=== PATIENT | female | born 1945 | race Caucasian/White ===

== ENCOUNTER 2016-05-22 10:53 | Emergency (ER) | payer OTHER ==
[~2016-05-22] VITALS: Ht 162.6 cm; Wt 72.0 kg
[2016-05-22 10:53] VITALS: TEMP 36.5; Ht 162.6 cm; Wt 72.0 kg
[~2016-05-22 10:53] MED LIST: ASPEC325 PO; ATEN25TA PO; CALC-51 PO; CHOL1CAP67 PO; CHROPOW21 PO; CINN1CAP2 PO; CRAN500C2 PO; FLV400 PO; HYDR-5688 PO; LEVO112T2 PO; LORA-741 PO; LORA10TA6 PO; LOSA50TA6 PO; MAGN1CAP2 PO; METAMUCIL PO; METF500T PO; MULTTAB PO; SENNTAB23 PO
[2016-05-22] MEDS ORDERED: SODIUM CHLORIDE 0.9% 1000ML 200 ML IV STA (11:15)
[2016-05-22 11:29] LABS: BASO % 0.6 %; BASO ABS # 0.06 K/uL (0-0.2); COMPLETE YES; EOS % 3.3 %; HEMATOCRIT 40.6 % (37-47); IG% 0.3 %; LYMPH % 39.3 %; MEAN CELL VOLUME 89.8 fL (80-100); MEAN CORPUSCULAR HGB CONC 34.5 g/dl (32-36); MEAN PLATELET VOLUME 10.8 fL (7.4-10.4); MONO % 5.6 %; NEUT % 50.9 %; PLATELET COUNT 258 K/uL (130-400); RED BLOOD COUNT 4.52 M/uL (4.2-5.4); WHITE BLOOD COUNT 10.44 K/uL (4.8-10.8)
[2016-05-22 11:45] LABS: INR 1.1 (0.9-1.1); PARTIAL THROMBOPLASTIN RATIO 0.9; PROTHROMBIN TIME (PATIENT) 11.5 SECONDS (9.0-12.0)
[2016-05-22 11:48] LABS: ALT/SGPT 33 U/L (12-78); AST/SGOT 43 U/L (15-37); BLOOD UREA NITROGEN 13 mg/dl (7-18); BUN/CREATININE RATIO 11.6 (10-20); CALCIUM 8.7 mg/dl (8.5-10.1); CARBON DIOXIDE 23 mmol/L (21-32); CHLORIDE 105 mmol/L (98-107); GLUCOSE 136 mg/dl (70-99); MAGNESIUM 1.9 mg/dl (1.8-2.4); POTASSIUM 3.9 mmol/L (3.5-5.1); SODIUM 140 mmol/L (136-145)
--- NOTE | 2016-05-22 11:50 | DIAGNOSTIC IMAGING REPORT ---
CT SCAN OF THE BRAIN WITHOUT IV CONTRAST CLINICAL HISTORY: Change in mental status. COMPARISON STUDY: No priors. TECHNIQUE: Unenhanced axial CT scan of the brain is performed from the vertex to the skull base. CT DOSE: 737.65 mGy.cm FINDINGS: Brain parenchyma: There are age-related involutional changes noting minimal subcortical and periventricular microangiopathic change. There is no hemorrhage, mass effect, or evidence of acute territorial ischemia by CT criteria. Maria-white matter is preserved. No extra-axial fluid collection is seen. Ventricles, sulci, cisterns: Prominent secondary to involutional change. Intracranial vasculature: There is mild atherosclerotic calcification of the cavernous carotid arteries. Calvarium: Unremarkable. Sinuses and mastoids: The visualized paranasal sinuses are clear. The mastoid air cells are well pneumatized. Orbits: The bony orbits are grossly intact. IMPRESSION: There is no hemorrhage, mass effect, or evidence of acute territorial ischemia by CT criteria. Electronically signed by: Remigio Carrasquillo M.D. 05/22/2016 11:49 AM
[2016-05-22 11:55] LABS: ALKALINE PHOSPHATASE 92 U/L (45-117); CKMB/CK RATIO 1.2 (0-3.0); THYROID STIMULATING HORMONE 0.206 uIu/ml (0.300-4.500)
[2016-05-22 12:03] VITALS: O2SAT 98
--- NOTE | 2016-05-22 12:05 | DIAGNOSTIC IMAGING REPORT ---
CT SCAN OF THE FACIAL BONES WITHOUT IV CONTRAST CLINICAL HISTORY: Right jaw pain. COMPARISON STUDY: CT of the brain performed concurrently on 05/22/2016. TECHNIQUE: High-resolution CT scan of the facial bones is performed. Images are reviewed in the axial, sagittal, and coronal planes. IV contrast was not administered for this examination. CT DOSE: Reported separately under the concurrently performed CT scan of the brain. FINDINGS: The skeletal structures are osteopenic. There is no evidence of facial bone fracture. The bony orbits are intact and the orbital contents are within normal limits. The zygomatic arches, nasal bones, and pterygoid plates are preserved. The maxilla and mandible are intact. Degenerative change is noted involving the temporomandibular joints. There are no layering blood products within the paranasal sinuses. There is trace mucosal thickening within the right maxillary antrum, the frontal sinuses, and the ethmoid sinuses. The mastoid air cells are clear. The visualized calvarium and upper cervical spine are maintained. Partially imaged brain parenchyma is within normal limits. No dental caries or periapical lucencies are identified. IMPRESSION: There is no evidence of facial bone fracture. Electronically signed by: Remigio Carrasquillo M.D. 05/22/2016 12:03 PM
[2016-05-22] MEDS ORDERED: ASPCH81X PO (12:13)
--- NOTE | 2016-05-22 12:13 | EMERGENCY ROOM VISIT NOTE ---
History Report prepared by Niko: Beata Bond Under the Supervision of: Dr. Jose Us D.O. First contact with patient: 11:09 Chief Complaint: STROKE SYMPTOMS Stated Complaint: POSSIBLE STROKE History of Present Illness The patient is a 71 year old female who presents to the Emergency Room with complaints of improving stroke-like symptoms that started [employer]. She rates her discomfort as a 3/10 in severity. The patient was at a service when they just finished singing a song and she became very dizzy. She also experienced worsening ear and jaw pain which radiated into her left shoulder, along with diaphoresis. She states that she felt like she was going to experience syncope. Her adds that she was weak and "shaky" when she was getting into the car. She states that the pain in her ears was bad during that time. Currently, she is a little dizzy but does not feel weak. The patient describes the dizziness as feeling "woozy." She states that she has had the pain in the right side of her jaw for about two months and it radiates into her ear when she opens her mouth. The patient saw her PCP for the jaw pain and they took an x -ray which was unremarkable. The patient's states that the patient's blood pressure medications were increased recently because her blood pressures have been high. The patient has a history of diabetes and hypertension. Source of History: patient, spouse/significant other () Onset: [employer] Symptom Intensity: 3/10 Quality: other (stroke-like symptoms) Timing: other (improving) Associated Symptoms: + weakness Note: dizziness, ear pain, jaw pain Review of Systems See HPI for pertinent positives & negatives. A total of 10 systems reviewed and were otherwise negative. Past Medical & Surgical Medical Problems: (1) Hypertension (2) Hypothyroidism Family History No pertinent family history Social History Smoking Status: Never Smoker Current/Historical Medications Scheduled Aspirin (Aspirin Chewable), 81 MG PO DAILY Atenolol (Tenormin), 25 MG PO DAILY Calcium Carbonate-Vitamin D (Calcium), 300 MG PO DAILY Cholecalciferol (Vitamin D-3), 1 CAP PO DAILY Cinnamon (Cinnamon), 1 CAP PO DAILY Cranberry (Vaccinium Macrocarp (Cranberry), 1 CAP PO DAILY Folic Acid (Folic Acid), 1 TAB PO DAILY Levothyroxine Sodium (Synthroid), 112 MCG PO DAILY Losartan Potassium (Cozaar), 50 MG PO BID Magnesium Oxide (Mg Supplement (Magnesium), 1 CAP PO DAILY Metformin Hcl (Glucophage), 500 MG PO DAILY Multivitamins/Minerals (Mvi With Minerals), 1 TAB PO DAILY [Chromium Picolinate], 250 MG PO DAILY [Metamucil], 1 TBS PO DAILY Scheduled PRN Loratadine (Claritin), 10 MG PO DAILY PRN for ALLERGIC REACTION Lorazepam (Ativan), 0.25 MG PO DAILY PRN for Anxiety Allergies Coded Allergies: BEE STING (Verified Allergy, Severe, SWELLS UP, 11/26/13) Cefazolin (Unverified Allergy, Intermediate, SHORTNESS OF BREATH, 12/10/13) lip swellling Morphine (Verified Adverse Reaction, Intermediate, ABNORMAL DREAMS/PASSED OUT, 11/26/13) Nitroglycerin (Verified Adverse Reaction, Intermediate, GI SYMPTOMS, ) Adhesives (Verified Adverse Reaction, Mild, HIVES, 12/09/13) ITCHY AND RED SKIN Lisinopril (Verified Adverse Reaction, Mild, COUGH, 11/26/13) Physical Exam Vital Signs Date Time Temp Pulse Resp B/P Pulse Ox O2 Delivery O2 Flow Rate FiO2 05/22/16 13:44 60 18 155/83 98 05/22/16 12:03 98 Room Air 05/22/16 11:06 59 05/22/16 10:53 36.5 54 18 168/87 98 Room Air Physical Exam VITAL SIGNS: were reviewed as above. GENERAL:Non-toxic in appearance. SKIN: Warm dry and pink. HEAD: Normocephalic and atraumatic. OROPHARYNX: Is clear and moist NECK: Supple without lymphadenopathy or meningismus. LUNGS: clear. HEART: Regular rate and rhythm. ABDOMEN: Soft and nontender. EXTREMITIES: Warm and well perfused. NEUROLOGICALLY: Awake alert and oriented without focal deficit. Cranial nerves 2 -12 are intact. There is no pronator drift. Cerebellar testing is within normal limits. There is no nystagmus. There is no facial droop. Speech is clear. Vision is grossly normal. MUSCULOSKELETAL: Good muscle tone. No evidence of trauma. Medical Decision & Procedures ER Provider Diagnostic Interpretation: X ray results and stated below per my interpretation and radiologist interpretation. Other radiology results and stated below per my review and radiologist interpretation: SINGLE VIEW CHEST CLINICAL HISTORY: Change in mental status. FINDINGS: An AP, portable, upright chest radiograph is compared to study dated 12/10/2013. The examination is degraded by portable technique and patient rotation. The heart is mildly enlarged and there is atherosclerotic calcification of the thoracic aorta. The pulmonary vasculature is noncongested. The lungs and pleural spaces are clear. No pneumothorax is seen. The skeletal structures are osteopenic. The bony thorax is grossly intact. Cholecystectomy clips are identified in the right upper quadrant. IMPRESSION: Cardiac enlargement with no active disease in the chest. Electronically signed by: Remigio Carrasquillo M.D. 05/22/2016 12:[address] SCAN OF THE BRAIN WITHOUT IV CONTRAST CLINICAL HISTORY: Change in mental status. COMPARISON STUDY: No priors. TECHNIQUE: Unenhanced axial CT scan of the brain is performed from the vertex to the skull base. CT DOSE: 737.65 mGy.cm FINDINGS: Brain parenchyma: There are age-related involutional changes noting minimal subcortical and periventricular microangiopathic change. There is no hemorrhage, mass effect, or evidence of acute territorial ischemia by CT criteria. Maria-white matter is preserved. No extra-axial fluid collection is seen. Ventricles, sulci, cisterns: Prominent secondary to involutional change. Intracranial vasculature: There is mild atherosclerotic calcification of the cavernous carotid arteries. Calvarium: Unremarkable. Sinuses and mastoids: The visualized paranasal sinuses are clear. The mastoid air cells are well pneumatized. Orbits: The bony orbits are grossly intact. IMPRESSION: There is no hemorrhage, mass effect, or evidence of acute territorial ischemia by CT criteria. Electronically signed by: Remigio Carrasquillo M.D. 05/22/2016 11:[address] SCAN OF THE FACIAL BONES WITHOUT IV CONTRAST CLINICAL HISTORY: Right jaw pain. COMPARISON STUDY: CT of the brain performed concurrently on 05/22/2016. TECHNIQUE: High-resolution CT scan of the facial bones is performed. Images are reviewed in the axial, sagittal, and coronal planes. IV contrast was not administered for this examination. CT DOSE: Reported separately under the concurrently performed CT scan of the brain. FINDINGS: The skeletal structures are osteopenic. There is no evidence of facial bone fracture. The bony orbits are intact and the orbital contents are within normal limits. The zygomatic arches, nasal bones, and pterygoid plates are preserved. The maxilla and mandible are intact. Degenerative change is noted involving the temporomandibular joints. There are no layering blood products within the paranasal sinuses. There is trace mucosal thickening within the right maxillary antrum, the frontal sinuses, and the ethmoid sinuses. The mastoid air cells are clear. The visualized calvarium and upper cervical spine are maintained. Partially imaged brain parenchyma is within normal limits. No dental caries or periapical lucencies are identified. IMPRESSION: There is no evidence of facial bone fracture. Electronically signed by: Remigio Carrasquillo M.D. 05/22/2016 12:03 PM Laboratory Results 05/22/16 11:10 Red Blood Count 4.52, Mean Corpuscular Volume 89.8, Mean Corpuscular Hemoglobin 31.0, Mean Corpuscular Hemoglobin Concent 34.5, Mean Platelet Volume 10.8, Neutrophils (%) (Auto) 50.9, Lymphocytes (%) (Auto) 39.3, Monocytes (%) (Auto) 5.6, Eosinophils (%) (Auto) 3.3, Basophils (%) (Auto) 0.6, Neutrophils # (Auto) 5.33, Lymphocytes # (Auto) 4.10, Monocytes # (Auto) 0.58, Eosinophils # (Auto) 0.34, Basophils # (Auto) 0.06 05/22/16 11:10 Test 05/22/16 11:10 White Blood Count 10.44 K/uL (4.8-10.8) Red Blood Count 4.52 M/uL (4.2-5.4) Hemoglobin 14.0 g/dL (12.0-16.0) Hematocrit 40.6 % (37-47) Mean Corpuscular Volume 89.8 fL (80-100) Mean Corpuscular Hemoglobin 31.0 pg (25-34) Mean Corpuscular Hemoglobin Concent 34.5 g/dl (32-36) Platelet Count 258 K/uL (130-400) Mean Platelet Volume 10.8 fL (7.4-10.4) Neutrophils (%) (Auto) 50.9 % Lymphocytes (%) (Auto) 39.3 % Monocytes (%) (Auto) 5.6 % Eosinophils (%) (Auto) 3.3 % Basophils (%) (Auto) 0.6 % Neutrophils # (Auto) 5.33 K/uL (1.4-6.5) Lymphocytes # (Auto) 4.10 K/uL (1.2-3.4) Monocytes # (Auto) 0.58 K/uL (0.11-0.59) Eosinophils # (Auto) 0.34 K/uL (0-0.5) Basophils # (Auto) 0.06 K/uL (0-0.2) RDW Standard Deviation 44.4 fL (36.4-46.3) RDW Coefficient of Variation 13.4 % (11.5-14.5) Immature Granulocyte % (Auto) 0.3 % Immature Granulocyte # (Auto) 0.03 K/uL (0.00-0.02) Prothrombin Time 11.5 SECONDS (9.0-12.0) Prothromb Time International Ratio 1.1 (0.9-1.1) Activated Partial Thromboplast Time 24.5 SECONDS (21.0-31.0) Partial Thromboplastin Ratio 0.9 Anion Gap 12.0 mmol/L (3-11) Est Creatinine Clear Calc Drug Dose 44.3 ml/min Estimated GFR () 57.7 Estimated GFR (Non- 49.8 BUN/Creatinine Ratio 11.6 (10-20) Calcium Level 8.7 mg/dl (8.5-10.1) Magnesium Level 1.9 mg/dl (1.8-2.4) Total Bilirubin 0.7 mg/dl (0.2-1) Direct Bilirubin 0.1 mg/dl (0-0.2) Aspartate Amino Transf (AST/SGOT) 43 U/L (15-37) Alanine Aminotransferase (ALT/SGPT) 33 U/L (12-78) Alkaline Phosphatase 92 U/L (45-117) Total Creatine Kinase 58 U/L (26-192) Creatine Kinase MB 0.7 ng/ml (0.5-3.6) Creatine Kinase MB Ratio 1.2 (0-3.0) Troponin I < 0.015 ng/ml (0-0.045) Total Protein 7.7 gm/dl (6.4-8.2) Albumin 3.8 gm/dl (3.4-5.0) Lipase 203 U/L (73-393) Thyroid Stimulating Hormone (TSH) 0.206 uIu/ml (0.300-4.500) Laboratory results as stated above per my review. Medications Administered Medications (Trade) Dose Ordered Sig/Shira Route Start Time Stop Time Status Last Admin Dose Admin Sodium Chloride (Nss 1000ml) 200 ml @ 999 mls/hr Q13M STAT IV 05/22/16 11:15 05/22/16 11:27 DC 05/22/16 12:03 999 MLS/HR ECG Indication: weakness Rate (beats per minute): 52 Rhythm: sinus bradycardia Findings: no acute ischemic change, no ectopy, other (low voltage QRS) Comparison ECG Date: 12/10/2013 Change: Low voltage QRS is new ED Course 1112: Previous medical records were reviewed. The patient was evaluated in room C3. A complete history and physical examination was performed. 1115: Ordered Sodium Chloride 200 ml @ 999 mls/hr IV 1212: On reevaluation, the patient is doing well. I discussed the results and findings with the patient. She verbalized agreement of the treatment plan. She was discharged home. Medical Decision Differential includes acute coronary syndrome, myocardial infarction, CVA, TIA, anemia, infection, pneumonia, UTI, pyelonephritis, poor nutrition, dehydration, electrolyte disturbance,hypoglycemia. This is a 71-year-old female who presents to the ED with a chief complaint of having a near syncopal episode. The patient states that she was at worship and developed a pain in her right ear and jaw. She states that she has had this pain before. She talk to her PCP about it and had x-rays which did not show a cause. The pain radiated into her neck and into the other side of her face. She states that she felt lightheaded and became diaphoretic and weak. She felt like he might pass out but she did not. Currently the patient just feels a little woozy. She denies any other significant symptoms. Her neurologic exam was normal. Her physical exam was normal. Twelve-lead EKG shows a sinus bradycardia rate of 52. Low voltage. CT scan of her head and facial structures did not show any acute process. Chest x-ray was negative for acute disease. CBC was unremarkable. Complete metabolic panel was unremarkable. Troponin is negative. The exact cause of the patient's symptoms/pain is unclear. She may have TMJ. I feel she had a vasovagal type near syncope today while at worship. She is felt to be stable for discharge and outpatient follow- up. Impression Primary Impression: Near syncope Additional Impression: Lightheaded Scribe Attestation The scribe's documentation has been prepared under my direction and personally reviewed by me in its entirety. I confirm that the note above accurately reflects all work, treatment, procedures, and medical decision making performed by me. Departure Information Dispostion Home / Self-Care Referrals Candis Bro DO (PCP) Forms HOME CARE DOCUMENTATION FORM, IMPORTANT VISIT INFORMATION Patient Instructions A Signature Page, ED Near Syncope Unkn, My [facility] Additional Instructions Follow-up with your doctor for further care and evaluation in 1-2 days. Return to the emergency department for worsening or new symptoms or any concerns. You have been examined and treated today on an emergency basis only. This is not a substitute for, or an effort to provide, complete comprehensive medical care. It is impossible to recognize and treat all injuries or illnesses in a single emergency department visit. It is therefore important that you follow up closely with your doctor. Call as soon as possible for an appointment.
--- NOTE | 2016-05-22 12:58 | DIAGNOSTIC IMAGING REPORT ---
SINGLE VIEW CHEST CLINICAL HISTORY: Change in mental status. FINDINGS: An AP, portable, upright chest radiograph is compared to study dated 12/10/2013. The examination is degraded by portable technique and patient rotation. The heart is mildly enlarged and there is atherosclerotic calcification of the thoracic aorta. The pulmonary vasculature is noncongested. The lungs and pleural spaces are clear. No pneumothorax is seen. The skeletal structures are osteopenic. The bony thorax is grossly intact. Cholecystectomy clips are identified in the right upper quadrant. IMPRESSION: Cardiac enlargement with no active disease in the chest. Electronically signed by: Remigio Carrasquillo M.D. 05/22/2016 12:56 PM
[2016-05-22 13:44] VITALS: BP 155/83; PULSE 60; O2SAT 98
[2017-01-15] MEDS ORDERED: MECL-91 PO (15:04)
== END 2016-05-22 13:45 | disposition home or self-care (01) ==
LOC: C.EDB 10:53 → C.EDC 13:45
DX: R55 Syncope and collapse (principal); R42 Dizziness and giddiness; I10 Essential (primary) hypertension; E03.9 Hypothyroidism, unspecified; E11.9 Type 2 diabetes mellitus without complications; Z79.82 Long term (current) use of aspirin; Z79.899 Other long term (current) drug therapy

== ENCOUNTER 2017-01-15 05:55 | Observation (INO) | payer OTHER ==
[~2017-01-15] VITALS: Ht 160 cm; Wt 6.7 kg
[~2017-01-15 05:55] MED LIST changes: +ASPCH81X PO; -ASPEC325 PO; -HYDR-5688 PO; +LORA10TA5 PO; -LORA10TA6 PO; -SENNTAB23 PO
[2017-01-15 06:22] LABS: BASO % 0.2 %; BASO ABS # 0.02 K/uL (0-0.2); COMPLETE YES; HEMATOCRIT 41.1 % (37-47); IG% 0.3 %; LYMPH % 37.4 %; MEAN CELL VOLUME 91.1 fL (80-100); MEAN CORPUSCULAR HEMOGLOBIN 29.7 pg (25-34); MEAN CORPUSCULAR HGB CONC 32.6 g/dl (32-36); MEAN PLATELET VOLUME 10.5 fL (7.4-10.4); MONO % 5.9 %; NEUT % 54.2 %; PLATELET COUNT 254 K/uL (130-400); RED BLOOD COUNT 4.51 M/uL (4.2-5.4); WHITE BLOOD COUNT 9.09 K/uL (4.8-10.8)
--- NOTE | 2017-01-15 06:43 | DIAGNOSTIC IMAGING REPORT ---
CHEST ONE VIEW PORTABLE HISTORY: 71 years-old Female acute left-sided chest pain. COMPARISON: Portable chest radiograph 05/22/2016 TECHNIQUE: Portable upright AP view of the chest FINDINGS: Cardiac silhouette is again upper limits of normal. No pneumothorax, pleural effusion or focal airspace consolidation. There is atherosclerosis of the aorta. Cholecystectomy clips are noted. Bones are grossly intact. IMPRESSION: No acute cardiopulmonary process. The above report was generated using voice recognition software. It may contain grammatical, syntax or spelling errors. Electronically signed by: Aaron Gonzalez M.D. 01/15/2017 6:41 AM Dictated Date/Time: 01/15/2017 6:40 AM
[2017-01-15 06:49] LABS: ALT/SGPT 41 U/L (12-78); BLOOD UREA NITROGEN 7 mg/dl (7-18); BUN/CREATININE RATIO 8.2 (10-20); CALCIUM 8.8 mg/dl (8.5-10.1); CARBON DIOXIDE 26 mmol/L (21-32); CHLORIDE 105 mmol/L (98-107); GLUCOSE 133 mg/dl (70-99); POTASSIUM 3.8 mmol/L (3.5-5.1); SODIUM 140 mmol/L (136-145)
[2017-01-15] MEDS ORDERED: CHRO1TAB5 PO (06:51)
[2017-01-15] MEDS ORDERED: LEVO100T7 PO (06:52)
[2017-01-15 06:53] LABS: ALKALINE PHOSPHATASE 91 U/L (45-117); AST/SGOT 52 U/L (15-37); CKMB/CK RATIO 1.8 (0-3.0)
[2017-01-15] MEDS ORDERED: CALC-51 PO (06:55)
[2017-01-15] MEDS ORDERED: ESCI1TAB6 PO (06:57)
[2017-01-15] MEDS ORDERED: AMLO-110 PO (06:57)
[2017-01-15] MEDS ORDERED: SENNTAB23 PO (06:58)
[2017-01-15 07:35] LABS: URINE APPEARANCE CLEAR (CLEAR); URINE BILIRUBIN NEG (NEG); URINE COLOR YELLOW; URINE NITRITE NEG (NEG); URINE PH 7.5 (4.5-7.5); UROBILINOGEN NEG (NEG)
--- NOTE | 2017-01-15 07:37 | EMERGENCY ROOM VISIT NOTE ---
History Report prepared by Niko: Janice Olson Under the Supervision of: Dr. Kaley Strong D.O. First contact with patient: 05:56 Chief Complaint: DIZZY Stated Complaint: DIZZY/NAUSEA/VOMITING History of Present Illness The patient is a 71 year old female who presents to the Emergency Room with complaints of persistent dizziness starting BEE RANCHER. The patient presents to the ED by EMS. She woke up from sleep and was getting up to go to the bathroom. When she got up, she felt dizzy like everything around her was moving. She has had dizziness before, but never this badly. Her dizziness improved while she was in the ambulance. She has neck discomfort which she attributes to lying in bed. She notes that she has had some left sided chest discomfort for the past couple of days. The pain is intermittent and comes on even when she is at rest. The pain usually resolves after 10 minutes of sitting. She notes some ankle swelling. She denies any urinary symptoms, SOB, or abdominal pain. She denies any changes to her bowel movements. She has been eating and drinking normally. She has a history of hypertension and is on medications. She denies any history of [place]. Her parents did have heart problems. She had a stress test 1 year ago. Her notes that the patient has fallen and hit her head several times this year. Source of History: patient, spouse/significant other Onset: BEE RANCHER Position: other (global) Quality: other (dizziness) Timing: other (persistent) Associated Symptoms: + neck pain, + chest pain, No SOB, No abdominal pain, No urinary symptoms Review of Systems See HPI for pertinent positives & negatives. A total of 10 systems reviewed and were otherwise negative. Past Medical & Surgical Medical Problems: (1) Hypertension (2) Hypothyroidism Family History Heart disease Social History Smoking Status: Never Smoker Alcohol Use: none Marital Status: Housing Status: lives with significant other Current/Historical Medications Scheduled Amlodipine (Norvasc), 5 MG PO DAILY Aspirin (Aspirin Chewable), 81 MG PO DAILY Atenolol (Tenormin), 25 MG PO DAILY Calcium Carbonate-Vitamin D (Calcium), 400 MG PO DAILY Cholecalciferol (Vitamin D-3), 1,000 UNIT PO DAILY Chromium Picolinate (Chromium Picolinate), 200 MCG PO DAILY Cinnamon (Cinnamon), 1 CAP PO DAILY Escitalopram Oxalate (Lexapro), 5 MG PO DAILY Folic Acid (Folic Acid), 400 MG PO DAILY Levothyroxine Sodium (Levothyroxine Sodium), 100 MCG PO DAILY Losartan Potassium (Cozaar), 50 MG PO BID Magnesium Oxide (Mg Supplement (Magnesium), 400 MG PO DAILY Metformin Hcl (Glucophage), 500 MG PO BID Multivitamins/Minerals (Mvi With Minerals), 1 TAB PO DAILY Sennosides-Docusate Sodium (Stool Softener), 1 TAB PO DAILY Scheduled PRN Loratadine (Claritin), 10 MG PO DAILY PRN for ALLERGIC REACTION Lorazepam (Ativan), 0.25 MG PO DAILY PRN for Anxiety Meclizine HCl (Meclizine 25), 25 MG PO Q6H PRN for Dizziness or Vertigo Allergies Coded Allergies: Azithromycin (Verified Allergy, Severe, facial swelling, 01/15/17) BEE STING (Verified Allergy, Severe, SWELLS UP, 01/15/17) Cefazolin (Unverified Allergy, Severe, SHORTNESS OF BREATH, 01/15/17) lip swellling Adhesives (Unverified Allergy, Mild, HIVES, 01/15/17) ITCHY AND RED SKIN Morphine (Unverified Adverse Reaction, Intermediate, ABNORMAL DREAMS/ PASSED OUT, 01/15/17) Nitroglycerin (Unverified Adverse Reaction, Intermediate, GI SYMPTOMS, ) Lisinopril (Unverified Adverse Reaction, Mild, COUGH, 01/15/17) Candesartan (Unverified Adverse Reaction, Unknown, cough, 01/15/17) Enalapril (Unverified Adverse Reaction, Unknown, cough, 01/15/17) Physical Exam Vital Signs Date Time Temp Pulse Resp B/P (MAP) Pulse Ox O2 Delivery O2 Flow Rate FiO2 01/15/17 07:13 56 18 176/85 97 Room Air 01/15/17 06:04 66 01/15/17 05:59 36.6 74 20 211/88 96 Room Air Physical Exam HEENT: Head - normocephalic and atraumatic Pupils are equal, round, and reactive to light. Extraocular eye muscles are intact, and sclera are anicteric. No lateral or rotary nystagmus. Nose - moist nasal mucosa without discharge. Mouth - moist buccal mucosa. Oropharynx is nonerythematous and there is no tonsillar exudate or edema noted. Neck: Supple; no JVD, nuchal rigidity, cervical lymphadenopathy, or auscultated bruits. Heart: Regular rate and rhythm. There is a normal S1 and S2 with no murmurs, clicks, or gallops appreciated. Lungs: Clear to auscultation bilaterally with no wheezes, rales, or rhonchi. Chest: The left sided chest discomfort was not reproducible with palpation. Abdomen: Soft, completely nontender, nondistended, with good bowel sounds. There are no palpable pulsatile masses or hepatosplenomegaly. There is no guarding, rigidity, or rebound noted. Extremities: No evidence of cyanosis, clubbing, or edema. There are easily palpable peripheral pulses. Skin: warm and dry with good turgor and no rashes. Medical Decision & Procedures ER Provider Diagnostic Interpretation: X-ray results as stated below per interpretation by me and the radiologist: CHEST ONE VIEW PORTABLE HISTORY: 71 years-old Female acute left-sided chest pain. COMPARISON: Portable chest radiograph 05/22/2016 TECHNIQUE: Portable upright AP view of the chest FINDINGS: Cardiac silhouette is again upper limits of normal. No pneumothorax, pleural effusion or focal airspace consolidation. There is atherosclerosis of the aorta. Cholecystectomy clips are noted. Bones are grossly intact. IMPRESSION: No acute cardiopulmonary process. The above report was generated using voice recognition software. It may contain grammatical, syntax or spelling errors. Electronically signed by: Aaron Gonzalez M.D. 01/15/2017 6:41 AM Dictated Date/Time: 01/15/2017 6:40 AM Laboratory Results 01/15/17 05:20 Red Blood Count 4.51, Mean Corpuscular Volume 91.1, Mean Corpuscular Hemoglobin 29.7, Mean Corpuscular Hemoglobin Concent 32.6, Mean Platelet Volume 10.5, Neutrophils (%) (Auto) 54.2, Lymphocytes (%) (Auto) 37.4, Monocytes (%) (Auto) 5.9, Eosinophils (%) (Auto) 2.0, Basophils (%) (Auto) 0.2, Neutrophils # (Auto) 4.92, Lymphocytes # (Auto) 3.40, Monocytes # (Auto) 0.54, Eosinophils # (Auto) 0.18, Basophils # (Auto) 0.02 01/15/17 05:20 Test 01/15/17 05:20 01/15/17 07:10 White Blood Count 9.09 K/uL (4.8-10.8) Red Blood Count 4.51 M/uL (4.2-5.4) Hemoglobin 13.4 g/dL (12.0-16.0) Hematocrit 41.1 % (37-47) Mean Corpuscular Volume 91.1 fL (80-100) Mean Corpuscular Hemoglobin 29.7 pg (25-34) Mean Corpuscular Hemoglobin Concent 32.6 g/dl (32-36) Platelet Count 254 K/uL (130-400) Mean Platelet Volume 10.5 fL (7.4-10.4) Neutrophils (%) (Auto) 54.2 % Lymphocytes (%) (Auto) 37.4 % Monocytes (%) (Auto) 5.9 % Eosinophils (%) (Auto) 2.0 % Basophils (%) (Auto) 0.2 % Neutrophils # (Auto) 4.92 K/uL (1.4-6.5) Lymphocytes # (Auto) 3.40 K/uL (1.2-3.4) Monocytes # (Auto) 0.54 K/uL (0.11-0.59) Eosinophils # (Auto) 0.18 K/uL (0-0.5) Basophils # (Auto) 0.02 K/uL (0-0.2) RDW Standard Deviation 44.9 fL (36.4-46.3) RDW Coefficient of Variation 13.5 % (11.5-14.5) Immature Granulocyte % (Auto) 0.3 % Immature Granulocyte # (Auto) 0.03 K/uL (0.00-0.02) Anion Gap 9.0 mmol/L (3-11) Est Creatinine Clear Calc Drug Dose 59.3 ml/min Estimated GFR () 84.8 Estimated GFR (Non- 73.1 BUN/Creatinine Ratio 8.2 (10-20) Calcium Level 8.8 mg/dl (8.5-10.1) Total Bilirubin 0.4 mg/dl (0.2-1) Aspartate Amino Transf (AST/SGOT) 52 U/L (15-37) Alanine Aminotransferase (ALT/SGPT) 41 U/L (12-78) Alkaline Phosphatase 91 U/L (45-117) Total Creatine Kinase 100 U/L (26-192) Creatine Kinase MB 1.8 ng/ml (0.5-3.6) Creatine Kinase MB Ratio 1.8 (0-3.0) Total Protein 7.3 gm/dl (6.4-8.2) Albumin 3.6 gm/dl (3.4-5.0) Globulin 3.7 gm/dl (2.5-4.0) Albumin/Globulin Ratio 1.0 (0.9-2) Thyroid Stimulating Hormone (TSH) 2.850 uIu/ml (0.300-4.500) Chemistry Specimen Hemolysis Urine Color YELLOW Urine Appearance CLEAR (CLEAR) Urine pH 7.5 (4.5-7.5) Urine Specific [place] 1.010 (1.000-1.030) Urine Protein NEG (NEG) Urine Glucose (UA) NEG (NEG) Urine Ketones NEG (NEG) Urine Occult Blood NEG (NEG) Urine Nitrite NEG (NEG) Urine Bilirubin NEG (NEG) Urine Urobilinogen NEG (NEG) Urine Leukocyte Esterase NEG (NEG) ECG Indication: other (dizziness) Rate (beats per minute): 65 Rhythm: normal sinus Findings: PVC, no acute ischemic change ED Course 0601: The patient was evaluated in room B6. A complete history and physical examination were performed. Nursing notes and previous electronic medical records were reviewed. IV lock was established and labs were drawn as above. A twelve-lead EKG was obtained as described above. The patient had a chest x- ray performed which was unremarkable. 0655: I reevaluated the patient. Her blood pressure has come down somewhat on its own. She is no longer dizzy. The chest pain has subsided. She is getting up to give a urine specimen. Her says that she has had increased episodes of dizziness over the past week and chest discomfort over the past few days. 0715: I discussed the patient's case Dr. Pereira, [facility] [place]. The patient will be evaluated for further management. Medical Decision The patient is a 71 year old female who presents to the ED with an episode of dizziness and left-sided chest discomfort. Differential diagnosis includes vertigo, dehydration, cardiac ischemia, unstable angina, acute coronary syndrome , hypoglycemia, posterior circulation stroke, UTI. Labs: No leukocytosis, stable H&H, normal TSH, glucose 133, normal LFTs and cardiac enzymes, normal renal function. The patient has been having intermittent episodes of dizziness over the past week. She woke up this morning with severe dizziness. She also relates a history of some left-sided chest discomfort that has been episodic angle may last for 5-10 minutes at a time. It does not seem to be exertional related. The patient also went on to tell me about some symptoms in June and July where she had syncopal episodes but was never worked up for them. The patient does have a history of hypertension which she describes is usually fairly well controlled. However today, the patient's blood pressure was quite high. The patient's cardiac enzymes are negative at this time. She is currently chest pain-free. The dizziness has resolved on stone. However, I remain concerned about the patient's symptom complex. I have discussed the case with the [facility] Hospitalist and they will evaluate for further management. Medication Reconcilliation Current Medication List: was personally reviewed by me Blood Pressure Screening Patient's blood pressure: Elevated blood pressure Will be monitored by hospitalist. Consults Time Called: [phone] Consulting Physician: Dr. Pereira, [facility] [place] Returned Call: 0715 Discussed the patient's case. The patient will be evaluated for further management. Impression Primary Impression: Left sided chest pain Additional Impressions: Dizziness Uncontrolled hypertension Scribe Attestation The scribe's documentation has been prepared under my direction and personally reviewed by me in its entirety. I confirm that the note above accurately reflects all work, treatment, procedures, and medical decision making performed by me. Departure Information Dispostion Being Evaluated By Hospitalist Prescriptions Meclizine HCl (Meclizine 25) 25 Mg Tab 25 MG PO Q6H Y for Dizziness or Vertigo, #10 TAB Prov: Nick Pereira M.D. 01/15/17 Referrals Candis Lee DO (PCP) Patient Instructions My [facility] Health Problem Qualifiers
[2017-01-15 07:40] LABS: MANUAL MICROSCOPIC REQUIRED? NO; REVIEW REQ? NO
[2017-01-15] MEDS ORDERED: LORATADINE 10 MG TAB PO PRN (07:45)
[2017-01-15] MEDS ORDERED: LORAZEPAM 0.5 MG TAB PO PRN (07:45)
[2017-01-15] MEDS ORDERED: MECLIZINE HCL 25 MG TAB PO PRN (08:15)
[2017-01-15] MEDS ORDERED: ACETAMINOPHEN 325 MG TAB PO PRN (08:15)
--- NOTE | 2017-01-15 08:15 | History and Physical ---
History & Physical Date & Time of Service: Jan 15, 2017 at 08:10 Chief Complaint: Dizzy/Nausea/Vomiting Primary Care Physician: Candis Lee DO History of Present Illness 71-year-old female who presents to the ER with complaints of dizziness and chest pain. Patient states that she was rolling around in bed just barely awake when she began to feel dizziness. She states that she's felt this before. She states that when she got up to the bathroom she was unsteady on her feet was fearful she would fall. Patient believes that this sensation began after she slipped on the ice and fell in May 2016 striking her head, she also had an episode of dizziness which causes her to phone her kitchen where she struck her head on a chair. She is not in any previous workup for this nor any medication to attempt to use for vertigo. At no time since the fall in May to the patient pass out she feels like things are spinning, in the ER she was markedly hypertensive, she is not given any medication, I was called to evaluate the patient. Patient also believes during this morning that she had some vague left parasternal chest discomfort this resolved spontaneously. At no time over the last week says she had this chest discomfort when she was doing her activities of daily living cleaning her home going to the grocery store shopping or walking. Initial evaluation in the ER included serology including cardiac enzymes which were negative a chest x-ray which is negative and the EKG without any acute changes. Patient will be observed repeat enzymes carotid Doppler and echo if negative the patient will go home with outpatient workup she will be given 1 dose of meclizine and her usual antihypertensive this morning. Past Medical/Surgical History Medical Problems: (1) Hypertension Status: Chronic (2) Hypothyroidism Status: Chronic Family History Heart disease Social History Smoking Status: Never Smoker Marital Status: Multi-Drug Resistant Organisms History of MDRO: No Allergies Coded Allergies: Azithromycin (Verified Allergy, Severe, facial swelling, 01/15/17) BEE STING (Verified Allergy, Severe, SWELLS UP, 01/15/17) Cefazolin (Unverified Allergy, Severe, SHORTNESS OF BREATH, 01/15/17) lip swellling Adhesives (Unverified Allergy, Mild, HIVES, 01/15/17) ITCHY AND RED SKIN Morphine (Unverified Adverse Reaction, Intermediate, ABNORMAL DREAMS/ PASSED OUT, 01/15/17) Nitroglycerin (Unverified Adverse Reaction, Intermediate, GI SYMPTOMS, ) Lisinopril (Unverified Adverse Reaction, Mild, COUGH, 01/15/17) Candesartan (Unverified Adverse Reaction, Unknown, cough, 01/15/17) Enalapril (Unverified Adverse Reaction, Unknown, cough, 01/15/17) Home Medications Scheduled Amlodipine (Norvasc), 5 MG PO DAILY Aspirin (Aspirin Chewable), 81 MG PO DAILY Atenolol (Tenormin), 25 MG PO DAILY Calcium Carbonate-Vitamin D (Calcium), 400 MG PO DAILY Cholecalciferol (Vitamin D-3), 1,000 UNIT PO DAILY Chromium Picolinate (Chromium Picolinate), 200 MCG PO DAILY Cinnamon (Cinnamon), 1 CAP PO DAILY Escitalopram Oxalate (Lexapro), 5 MG PO DAILY Folic Acid (Folic Acid), 400 MG PO DAILY Levothyroxine Sodium (Levothyroxine Sodium), 100 MCG PO DAILY Losartan Potassium (Cozaar), 50 MG PO BID Magnesium Oxide (Mg Supplement (Magnesium), 400 MG PO DAILY Metformin Hcl (Glucophage), 500 MG PO BID Multivitamins/Minerals (Mvi With Minerals), 1 TAB PO DAILY Sennosides-Docusate Sodium (Stool Softener), 1 TAB PO DAILY Scheduled PRN Loratadine (Claritin), 10 MG PO DAILY PRN for ALLERGIC REACTION Lorazepam (Ativan), 0.25 MG PO DAILY PRN for Anxiety Review of Systems ROS: well nourished well developed, has had no decrease in exercise function No double vision blurry vision No problems with speech or swallowing No palpitations, she has vague chest discomfort which is not sharp or pressured longer left sternal border No Wheezing or breathing issues No abdominal pain nausea vomiting diarrhea changes in appetite or weight No burning urine urine frequency or changes in color No focal joint pain or muscle pain No skin rashes or oral lesions No unusual bruising or bleeding No focused back pain or numbness or loss of strength No changes in memory or confusion Her symptoms of dizziness are of things being unstable or moving about her and feeling like she would fall Physical Exam Vital Signs Date Time Temp Pulse Resp B/P (MAP) Pulse Ox O2 Delivery O2 Flow Rate FiO2 01/15/17 07:13 56 18 176/85 97 Room Air 01/15/17 06:04 66 01/15/17 05:59 36.6 74 20 211/88 96 Room Air General Appearance: WD/WN, no apparent distress Head: normocephalic, atraumatic Eyes: PERRL, EOMI ENT: TMs normal, pharynx normal Neck: supple, no adenopathy, no JVD, no carotid bruits Respiratory/Chest: chest non-tender, lungs clear, normal breath sounds Cardiovascular: regular rate, rhythm, no murmur Abdomen/GI: normal bowel sounds, non tender, soft Back: no CVA tenderness, no muscle spasm, normal range of motion Extremities/Musculoskelatal: normal inspection, no calf tenderness, no pedal edema 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, no motor/sensory deficits, alert, oriented x 3 Skin: normal color, warm/dry, no rash Diagnostics Laboratory Results Results Past 24 Hours Test 01/15/17 05:20 01/15/17 07:10 Range/Units White Blood Count 9.09 4.8-10.8 K/uL Red Blood Count 4.51 4.2-5.4 M/uL Hemoglobin 13.4 12.0-16.0 g/dL Hematocrit 41.1 37-47 % Mean Corpuscular Volume 91.1 80-100 fL Mean Corpuscular Hemoglobin 29.7 25-34 pg Mean Corpuscular Hemoglobin Concent 32.6 32-36 g/dl Platelet Count 254 130-400 K/uL Mean Platelet Volume 10.5 7.4-10.4 fL Neutrophils (%) (Auto) 54.2 % Lymphocytes (%) (Auto) 37.4 % Monocytes (%) (Auto) 5.9 % Eosinophils (%) (Auto) 2.0 % Basophils (%) (Auto) 0.2 % Neutrophils # (Auto) 4.92 1.4-6.5 K/uL Lymphocytes # (Auto) 3.40 1.2-3.4 K/uL Monocytes # (Auto) 0.54 0.11-0.59 K/uL Eosinophils # (Auto) 0.18 0-0.5 K/uL Basophils # (Auto) 0.02 0-0.2 K/uL RDW Standard Deviation 44.9 36.4-46.3 fL RDW Coefficient of Variation 13.5 11.5-14.5 % Immature Granulocyte % (Auto) 0.3 % Immature Granulocyte # (Auto) 0.03 0.00-0.02 K/uL Sodium Level 140 136-145 mmol/L Potassium Level 3.8 3.5-5.1 mmol/L Chloride Level 105 98-107 mmol/L Carbon Dioxide Level 26 21-32 mmol/L Anion Gap 9.0 3-11 mmol/L Blood Urea Nitrogen 7 7-18 mg/dl Creatinine 0.80 0.60-1.20 mg/dl Est Creatinine Clear Calc Drug Dose 59.3 ml/min Estimated GFR () 84.8 Estimated GFR (Non- 73.1 BUN/Creatinine Ratio 8.2 10-20 Random Glucose 133 70-99 mg/dl Calcium Level 8.8 8.5-10.1 mg/dl Total Bilirubin 0.4 0.2-1 mg/dl Aspartate Amino Transf (AST/SGOT) 52 15-37 U/L Alanine Aminotransferase (ALT/SGPT) 41 12-78 U/L Alkaline Phosphatase 91 45-117 U/L Total Creatine Kinase 100 26-192 U/L Creatine Kinase MB 1.8 0.5-3.6 ng/ml Creatine Kinase MB Ratio 1.8 0-3.0 Troponin I < 0.015 0-0.045 ng/ml Total Protein 7.3 6.4-8.2 gm/dl Albumin 3.6 3.4-5.0 gm/dl Globulin 3.7 2.5-4.0 gm/dl Albumin/Globulin Ratio 1.0 0.9-2 Thyroid Stimulating Hormone (TSH) 2.850 0.300-4.500 uIu/ml Chemistry Specimen Hemolysis Urine Color YELLOW Urine Appearance CLEAR CLEAR Urine pH 7.5 4.5-7.5 Urine Specific [place] 1.010 1.000-1.030 Urine Protein NEG NEG Urine Glucose (UA) NEG NEG Urine Ketones NEG NEG Urine Occult Blood NEG NEG Urine Nitrite NEG NEG Urine Bilirubin NEG NEG Urine Urobilinogen NEG NEG Urine Leukocyte Esterase NEG NEG Diagnostic Radiology Negative cardiac enzymes CXR normal Normal EKG Impression Assessment and Plan 71-year-old female here with what may be a non-positional vertigo and incidental left chest discomfort The patient will be observed, carotid Dopplers and echocardiogram will be performed as well as repeat troponin at noon if no significant abnormalities are seen and the patient can ambulate without discomfort she will be discharged home for outpatient workup. For vertigo she'll be given meclizine 25 mg by mouth 1 cardiovascular history Norvasc aspirin atenolol Cozaar will be continued diabetes she'll be on a diabetic diet with metformin continued hypothyroidism Synthroid 100 Depression and anxiety continue lorazepam and Lexapro DVT prevention is early ambulation VTE Prophylaxis VTE Risk Assessment Done? Y/N: Yes Risk Level: Moderate Given or contraindicated: Treatment not indicated
[2017-01-15] MEDS ORDERED: CEROVITE ADV FORMULA TAB PO SCH (09:00)
[2017-01-15] MEDS ORDERED: AMLODIPINE BESYLATE 5 MG TAB PO SCH (09:00)
[2017-01-15] MEDS ORDERED: LOSARTAN POTASSIUM 50 MG TAB PO SCH (09:00)
[2017-01-15] MEDS ORDERED: METFORMIN HCL 500 MG TAB PO SCH (09:00)
[2017-01-15] MEDS ORDERED: DOCUSATE SODIUM/SENNA 50/8.6MG TAB PO SCH (09:00)
[2017-01-15] MEDS ORDERED: ASPIRIN 81 MG ECTAB PO SCH (09:00)
[2017-01-15] MEDS ORDERED: FoLIC ACID TAB 400 MCG TAB PO SCH (09:00)
[2017-01-15] MEDS ORDERED: ESCITALOPRAM OXALATE 10 MG TAB PO SCH (09:00)
[2017-01-15] MEDS ORDERED: LEVOTHYROXINE 100 MCG TAB PO SCH (09:00)
[2017-01-15] MEDS ORDERED: MECLIZINE HCL 25 MG TAB PO STA (09:06)
--- NOTE | 2017-01-15 10:13 | DIAGNOSTIC IMAGING REPORT ---
CAROTID DOPPLER NECK ART CLINICAL HISTORY: 71 years-old Female with eval for critical stenosis. Acute altered mental status and weakness. COMPARISON: CT head 05/22/2016 TECHNIQUE: Multiple real time sonographic images of the carotid bifurcations were obtained assessing melara scale, color Doppler and spectral wave form appearance FINDINGS: RIGHT CAROTID: The peak systolic velocity measured 64.7 cm/sec. The end diastolic velocity measured 20.9 cm/sec. The ICA to CCA ratio measured 1.2 which correlates with a stenosis of 0-50%. Mild degree of mixed plaquing involves the proximal and mid right ICA LEFT CAROTID: The peak systolic velocity measured 62.8 cm/sec. The end diastolic velocity measured 20.0 cm/sec. The ICA to CCA ratio measured 0.7 which correlates with a stenosis of 0-50%. Mild atherosclerotic plaquing is noted within the proximal left ICA. There is normal antegrade vertebral flow bilaterally. IMPRESSION: 1. No hemodynamically significant stenosis or significant atherosclerotic plaquing. 2. Normal antegrade vertebral flow bilaterally. The above report was generated using voice recognition software. It may contain grammatical, syntax or spelling errors. Electronically signed by: Aaron Gonzalez M.D. 01/15/2017 10:11 AM Dictated Date/Time: 01/15/2017 10:09 AM
[2017-01-15 10:41] VITALS: BP 193/76; PULSE 57; TEMP 36.8; O2SAT 96
[2017-01-15 10:47] VITALS: BP 193/76; PULSE 57; TEMP 36.8; O2SAT 96; Ht 160 cm; Wt 6.7 kg
[2017-01-15] MEDS: FoLIC ACID TAB 400 MCG TAB PO SCH ×2 (11:20→11:21)
[2017-01-15 12:00] VITALS: O2SAT 96
--- NOTE | 2017-01-15 12:01 | ECHOCARDIOGRAM REPORT ---
*NOTICE TO RECEIVING LIBERTARIAN AGENCY This information is strictly Confidential and protected under [place] law. [place] law prohibits you from making any further disclosure of this information unless further disclosure is expressly permitted by the written consent of the person to whom it pertains or is authorized by law. A general authorization for the release of medical or other information is not sufficient for this purpose. Hospital accepts no responsibility if the information is made available to any other person, INCLUDING THE PATIENT. Interpretation Summary * Name: ESTEPHANIE LYNN Study Date: 01/15/2017 10:29 AM BP: 193/76 mmHg * Patient Location: .[facility]\S\N275\S\2 HR: 57 * : 1945 (M/d/yyyy) Gender: Female Height: 63 in * Age: 71 yrs Ethnicity: [place] Weight: 157 lb * Ordering Physician: Nick Pereira * Referring Physician: Self, Referred * Performed By: Renate French RDCS * * Reason For Study: CHEST PAIN * BSA: 1.7 m2 * -- Conclusions -- * There is mild asymmetric left ventricular hypertrophy. * Left ventricular systolic function is normal. * Grade I diastolic dysfunction, (abnormal relaxation pattern). * The left ventricular wall motion is normal. * There is mild to moderate mitral regurgitation. * There is mild to moderate tricuspid regurgitation. Procedure Details * A complete two-dimensional transthoracic echocardiogram was performed (2D, M-mode, Doppler and color flow Doppler). Left Ventricle * The left ventricle is normal in size. * There is mild asymmetric left ventricular hypertrophy. * Ejection Fraction = 55-60%. * Left ventricular systolic function is normal. * Grade I diastolic dysfunction, (abnormal relaxation pattern). * The left ventricular wall motion is normal. Right Ventricle * The right ventricle is normal in size and function. * The right ventricular systolic function is normal as assessed by tricuspid annular plane systolic excursion (TAPSE) (normal >1.5 cm). Atria * The left atrial size is normal. * Right atrial size is normal. Mitral Valve * The mitral valve anatomy is normal. * There is mild to moderate mitral regurgitation. Tricuspid Valve * The tricuspid valve is not well visualized, but is grossly normal. * There is mild to moderate tricuspid regurgitation. Aortic Valve * The aortic valve is normal in structure and function. * No hemodynamically significant valvular aortic stenosis. * There is no significant aortic regurgitation. Great Vessels * The aortic root is normal size. Pericardium/Pleural * There is no pericardial effusion. MMode 2D Measurements and Calculations IVSd 1.4 cm IVSs 1.8 cm LVIDd 4.6 cm LVIDs 2.9 cm LVPWd 1.1 cm LVPWs 1.6 cm IVS/LVPW 1.3 FS 36.6 % EDV(Teich) 98.4 ml ESV(Teich) 33.1 ml EF(Teich) 66.4 % EDV(cubed) 98.7 ml ESV(cubed) 25.2 ml EF(cubed) 74.5 % % IVS thick 31.3 % % LVPW thick 45.0 % LV mass(C)d 217.1 grams LV mass(C)dI 124.4 grams/m\S\2 LV mass(C)s 191.9 grams LV mass(C)sI 110.0 grams/m\S\2 SV(Teich) 65.4 ml SI(Teich) 37.5 ml/m\S\2 SV(cubed) 73.5 ml SI(cubed) 42.1 ml/m\S\2 Ao root diam 3.2 cm Ao root area 7.8 cm\S\2 LA dimension 3.8 cm LA/Ao 1.2 LVAd ap4 23.8 cm\S\2 LVLd ap4 7.2 cm EDV(MOD-sp4) 69.4 ml EDV(sp4-el) 67.0 ml LVAs ap4 13.2 cm\S\2 LVLs ap4 5.9 cm ESV(MOD-sp4) 27.6 ml ESV(sp4-el) 25.2 ml EF(MOD-sp4) 60.3 % EF(sp4-el) 62.4 % LVAd ap2 24.7 cm\S\2 LVLd ap2 7.5 cm EDV(MOD-sp2) 72.3 ml EDV(sp2-el) 69.7 ml LVAs ap2 14.3 cm\S\2 LVLs ap2 6.2 cm ESV(MOD-sp2) 29.9 ml ESV(sp2-el) 28.0 ml EF(MOD-sp2) 58.6 % EF(sp2-el) 59.8 % LVLd %diff 3.9 % EDV(MOD-bp) 71.5 ml LVLs %diff 5.8 % ESV(MOD-bp) 29.7 ml EF(MOD-bp) 58.5 % SV(MOD-sp4) 41.9 ml SI(MOD-sp4) 24.0 ml/m\S\2 SV(MOD-sp2) 42.4 ml SI(MOD-sp2) 24.3 ml/m\S\2 SV(MOD-bp) 41.9 ml SI(MOD-bp) 24.0 ml/m\S\2 SV(sp4-el) 41.8 ml SI(sp4-el) 24.0 ml/m\S\2 SV(sp2-el) 41.7 ml SI(sp2-el) 23.9 ml/m\S\2 Doppler Measurements and Calculations MV E max pan 76.6 cm/sec MV A max pan 112.0 cm/sec MV E/A 0.68 MV dec time 0.28 sec Ao V2 max 160.2 cm/sec Ao max PG 10.3 mmHg Ao max PG (full) 5.4 mmHg LV V1 max PG 4.8 mmHg LV V1 max 110.1 cm/sec TR max pan 249.1 cm/sec
[2017-01-15] MEDS ORDERED: IV FLUIDS COMPLETED PRN (14:15)
[2017-01-15] MEDS ORDERED: PNEUMOCOCCAL POLYSACCHARIDES 25 MCG/0.5 ML VIAL/SYR IM. ONE (14:45)
[2017-01-15] MEDS ORDERED: PNEUMOCOCCAL ADMINISTRATION CHARGE ONE (14:45)
[2017-01-15] MEDS ORDERED: MECL-91 PO (15:04)
--- NOTE | 2017-01-15 15:06 | Discharge Instructions ---
Discharge Instructions Date of Service Jan 15, 2017. Admission Reason for Admission: Lt Sided Chest Pain Discharge Discharge Diagnosis / Problem: vertigo Discharge Goals Goal(s): Diagnostic testing, Therapeutic intervention Activity Recommendations Activity Limitations: resume your previous activity . Current Hospital Diet Patient's current hospital diet: Diabetes Type 2 Diet Discharge Diet Recommended Diet: Regular Diet Procedures Procedures Performed: ECHO normal heart Carotid artery u/s normal Pending Studies Studies pending at discharge: no Medical Emergencies . Who to Call and When: Medical Emergencies: If at any time you feel your situation is an emergency, please call 911 immediately. . Non-Emergent Contact Non-Emergency issues call your: Primary Care Provider Call Non-Emergent contact if: temperature is above 101, your pain is unusual for you . . "Provider Documentation" section prepared by Nick Pereira. . VTE Core Measure Inpt VTE Proph given/why not?: Treatment not indicated
[2017-01-15 15:43] VITALS: BP 193/76; PULSE 57; TEMP 36.8; O2SAT 96
--- NOTE | 2017-01-15 16:18 | Discharge Summary ---
Discharge Summary Date of Service Jan 15, 2017. Discharge Summary Admission Date: Jan 15, 2017 at 08:07 Discharge Date: Jan 15, 2017 Discharge Disposition: Home Principal Diagnosis: vertigo Procedures: ECho no rwma acceptable LV function, carotid duplex negative Medication Reconciliation New Medications: Meclizine HCl (Meclizine 25) 25 Mg Tab 25 MG PO Q6H PRN for Dizziness or Vertigo, #10 TAB Continued Medications: Amlodipine (Norvasc) 5 Mg Tab 5 MG PO DAILY, TAB Aspirin (Aspirin Chewable) 81 Mg Chew 81 MG PO DAILY, TAB Atenolol (Tenormin) 25 Mg Tab 25 MG PO DAILY, TAB Calcium Carbonate-Vitamin D (Calcium) 1 Tab Tab 400 MG PO DAILY Cholecalciferol (Vitamin D-3) 1,000 Unit Cap 1000 UNIT PO DAILY Chromium Picolinate (Chromium Picolinate) 200 Mcg Tab 200 MCG PO DAILY Cinnamon (Cinnamon) 500 Mg Cap 1 CAP PO DAILY Escitalopram Oxalate (Lexapro) 5 Mg Tab 5 MG PO DAILY, TAB Folic Acid (Folic Acid) 400 Mcg Tab 400 MG PO DAILY Levothyroxine Sodium (Levothyroxine Sodium) 100 Mcg Tab 100 MCG PO DAILY, 3 Refills Loratadine (Claritin) 10 Mg Tab 10 MG PO DAILY PRN for ALLERGIC REACTION, TAB Lorazepam (Ativan) 0.5 Mg Tab 0.25 MG PO DAILY PRN for Anxiety, TAB Losartan Potassium (Cozaar) 50 Mg Tab 50 MG PO BID, TAB Magnesium Oxide (Mg Supplement (Magnesium) 400 Mg Cap 400 MG PO DAILY Metformin Hcl (Glucophage) 500 Mg Tab 500 MG PO BID Multivitamins/Minerals (Mvi With Minerals) Tab 1 TAB PO DAILY, TAB Sennosides-Docusate Sodium (Stool Softener) 1 Tab Tab 1 TAB PO DAILY Discharge Exam Review of Systems: Constitutional: No fever, No chills Respiratory: No cough, No sputum Cardiovascular: No chest pain, No orthopnea Physical Exam: General Appearance: WD/WN, no apparent distress Eyes: PERRL, EOMI Respiratory/Chest: chest non-tender, lungs clear Cardiovascular: regular rate, rhythm, no murmur Hospital Course 71-year-old female with benign-positional vertigo and incidental left chest discomfort, negative serial enzymes, ECHO and Carotid dopplers the patient did ambulate without discomfort she will be discharged home for outpatient workup. For vertigo she'll be given meclizine 25 mg by mouth prn cardiovascular history Norvasc aspirin atenolol Cozaar will be continued diabetes she'll be on a diabetic diet with metformin continued hypothyroidism Synthroid 100 Depression and anxiety continue lorazepam and Lexapro DVT prevention is early ambulation pt states she has a follow up this week with pcp Total Time Spent: Greater than 30 minutes This includes examination of the patient, discharge planning, medication reconciliation, and communication with other providers. Discharge Instructions Please refer to the electronic Patient Visit Report (Discharge Instructions) for additional information.
== END 2017-01-15 16:05 | disposition home or self-care (01) ==
LOC: EDBD 05:55 → C.EDB 05:55 → C.MED 08:07 → ENRESERV 09:29
PROVIDERS: ADMIT Internal Medicine; ATTEND Internal Medicine
DX: I65.23 Occlusion and stenosis of bilateral carotid arteries (principal); R42 Dizziness and giddiness; I10 Essential (primary) hypertension; E03.9 Hypothyroidism, unspecified; E11.9 Type 2 diabetes mellitus without complications; F41.9 Anxiety disorder, unspecified; F32.9 Major depressive disorder, single episode, unspecified; Z82.49 Family history of ischemic heart disease and other diseases of the circulatory system; Z79.82 Long term (current) use of aspirin; Z79.899 Other long term (current) drug therapy

== ENCOUNTER 2017-02-21 10:52 | Observation (INO) | payer OTHER ==
[~2017-02-21] VITALS: Ht 162.6 cm; Wt 68.5 kg
[~2017-02-21 10:52] MED LIST changes: +AMLO-110 PO; +CHRO1TAB5 PO; -CHROPOW21 PO; -CRAN500C2 PO; +ESCI1TAB6 PO; +LEVO100T7 PO; -LEVO112T2 PO; +MECL-91 PO; -METAMUCIL PO; +SENNTAB23 PO
[2017-02-21] MEDS ORDERED: MULT-506 PO (11:43)
[2017-02-21] MEDS ORDERED: MAGN250T9 PO (11:43)
[2017-02-21] MEDS ORDERED: CRAN1CAP6 PO (11:43)
[2017-02-21] MEDS ORDERED: ONDA8TAB6 PO (11:43)
[2017-02-21 12:35] LABS: URINE APPEARANCE CLEAR (CLEAR); URINE BILIRUBIN NEG (NEG); URINE COLOR YELLOW; URINE NITRITE NEG (NEG); URINE SPECIFIC GRAVITY 1.009 (1.000-1.030); UROBILINOGEN NEG (NEG); ZZUR CULT IF INDIC CLEAN CATCH NO
[2017-02-21 12:37] LABS: MANUAL MICROSCOPIC REQUIRED? NO; REVIEW REQ? NO
[2017-02-21] MEDS ORDERED: SODIUM CHLORIDE 0.9% 1000ML 1,000 ML IV STA (12:37)
[2017-02-21] MEDS ORDERED: ONDANSETRON INJ 2 MG/ML 2 ML VIAL IV STA (12:42)
[2017-02-21] MEDS ORDERED: MECLIZINE HCL 25 MG TAB PO STA (12:43)
[2017-02-21 12:53] LABS: BASO % 0.3 %; BASO ABS # 0.02 K/uL (0-0.2); COMPLETE YES; EOS % 1.4 %; HEMATOCRIT 39.7 % (37-47); IG% 0.3 %; LYMPH % 22.1 %; LYMPH ABS # 1.59 K/uL (1.2-3.4); MEAN CELL VOLUME 88.8 fL (80-100); MEAN CORPUSCULAR HEMOGLOBIN 31.3 pg (25-34); MEAN CORPUSCULAR HGB CONC 35.3 g/dl (32-36); MEAN PLATELET VOLUME 10.6 fL (7.4-10.4); MONO % 3.9 %; PLATELET COUNT 206 K/uL (130-400); RED BLOOD COUNT 4.47 M/uL (4.2-5.4); WHITE BLOOD COUNT 7.18 K/uL (4.8-10.8)
[2017-02-21] MEDS ORDERED: LORAZEPAM 2 MG/ML 1 ML VIAL IV STA (12:57)
[2017-02-21 13:01] LABS: BUN/CREATININE RATIO 14.6 (10-20); CALCIUM 9.3 mg/dl (8.5-10.1); CREATININE 0.83 mg/dl (0.60-1.20); POTASSIUM 3.7 mmol/L (3.5-5.1)
[2017-02-21 13:11] LABS: ALB/GLOB RATIO 1.1 (0.9-2); CKMB/CK RATIO 1.4 (0-3.0); THYROID STIMULATING HORMONE 0.539 uIu/ml (0.300-4.500)
--- NOTE | 2017-02-21 13:16 | DIAGNOSTIC IMAGING REPORT ---
CHEST ONE VIEW PORTABLE HISTORY: syncopal episode yest; dizzy today COMPARISON: Chest 01/15/2017. FINDINGS: The lungs are clear. Cardiac silhouette is normal in size. No pleural effusions. No pneumothorax. Cholecystectomy. IMPRESSION: No acute process. Electronically signed by: Sudhir Santillan M.D. 02/21/2017 1:15 PM Dictated Date/Time: 02/21/2017 1:15 PM
--- NOTE | 2017-02-21 13:35 | DIAGNOSTIC IMAGING REPORT ---
HEAD WITHOUT CONTRAST (CT) CLINICAL HISTORY: 72 years-old Female presenting with HEAD INJURY, dizziness. TECHNIQUE: Multidetector CT imaging of the head was performed without the use of intravenous contrast. IV contrast: None. A dose lowering technique was used consistent with the principles of ALARA (as low as reasonably achievable). COMPARISON: 05/22/2016. CT DOSE (mGy.cm): The estimated cumulative dose is 537.48 mGy.cm. FINDINGS: Visual Supervisor topogram: Unremarkable. Proportional ventricular and sulcal prominence except at the vertex where there is mild sulcal effacement and gyral crowding. The callosal angle is not significantly decreased. These findings are unchanged from prior exam. Brain parenchyma normal in appearance with preserved melara-white differentiation. No mass effect or midline shift. No hemorrhage or acute territorial infarct. No extra-axial fluid collection. Paranasal sinuses and mastoid air cells clear. Calvarium intact. IMPRESSION: 1. No acute intracranial pathology. 2. Findings equivocal for normal pressure hydrocephalus. Electronically signed by: Walter Lopez M.D. 02/21/2017 1:34 PM Dictated Date/Time: 02/21/2017 1:28 PM
--- NOTE | 2017-02-21 15:18 | EMERGENCY ROOM VISIT NOTE ---
History Report prepared by Niko: Julien Ramirez Under the Supervision of: Dr. Jose Us D.O. First contact with patient: 12:30 Chief Complaint: DIZZY Stated Complaint: DIZZINESS Nursing Triage Summary: Pt. arrives to exam room via EMS transport. Pt. reports that she was standing at the sink yesterday trying to take her medications and she blacked out and woke up on the floor. She does not know how long she was out for. She reports hitting her head and her left shouler. She reports feeling dizzy and vomiting today. Took a meclizine this morning which she feels is what made her vomit. Denies headache or blurred vision. Also reporting left sided ear pain. History of Present Illness The patient is a 72 year old female who presents to the Emergency Room by EMS with complaints of constant dizziness beginning last night. She states that she fell yesterday while standing at her sink. She states that she was taking her morning medication, and "blacked out" causing her to fall. The patient states that she hit the back of her head and her left shoulder during the fall. She is unsure how long she was down for. She notes that she has passed out three times within the past several months, but is unsure why. The patient states that she has felt fine following the episode, but then began feeling dizzy during the night. She states that she has been having some difficulty standing since. She also complains of a left frontal headache, and "swirling" visual changes. The patient states that she had two near-syncopal events occur today as well. Her dizziness is worsened with sitting up, but not with rotation of her head. She has not had anything to eat or drink today. Source of History: patient Onset: Yesterday Quality: other (dizziness) Timing: constant Modifying Factors (Worsening): other (sitting up) Associated Symptoms: + LOC, + headache (left temporal) Note: Additional symptoms: visual changes. Review of Systems See HPI for pertinent positives & negatives. A total of 10 systems reviewed and were otherwise negative. Past Medical & Surgical Medical Problems: (1) Hypertension (2) Hypothyroidism Family History Heart disease Social History Smoking Status: Never Smoker Alcohol Use: none Marital Status: Housing Status: lives with significant other Current/Historical Medications Scheduled Amlodipine (Norvasc), 5 MG PO DAILY Aspirin (Aspirin Chewable), 81 MG PO DAILY Atenolol (Tenormin), 25 MG PO DAILY Calcium Carbonate-Vitamin D (Calcium), 1 TAB PO DAILY Cholecalciferol (Vitamin D-3), 1,000 UNIT PO DAILY Chromium Picolinate (Chromium Picolinate), 200 MCG PO DAILY Cinnamon (Cinnamon), 1 CAP PO DAILY Cranberry (Vaccinium Macrocarp (Cranberry), 250 MG PO DAILY Escitalopram Oxalate (Lexapro), 5 MG PO DAILY Folic Acid (Folic Acid), 1 TAB PO DAILY Levothyroxine Sodium (Levothyroxine Sodium), 100 MCG PO DAILY Loratadine (Claritin), 10 MG PO DAILY Losartan Potassium (Cozaar), 50 MG PO AMPM Magnesium (Magnesium), 250 MG PO DAILY Metformin Hcl (Glucophage), 500 MG PO BID Multivitamin (Multivitamin), 1 TAB PO DAILY Sennosides-Docusate Sodium (Stool Softener), 1 TAB PO DAILY Scheduled PRN Lorazepam (Ativan), 0.25 MG PO DAILY PRN for Anxiety Ondansetron Hcl (Zofran), 8 MG PO UD PRN for Nausea Allergies Coded Allergies: Azithromycin (Verified Allergy, Severe, facial swelling, 02/21/17) BEE STING (Verified Allergy, Severe, SWELLS UP, 02/21/17) Cefazolin (Unverified Allergy, Severe, SHORTNESS OF BREATH, 02/21/17) lip swellling Adhesives (Unverified Allergy, Mild, HIVES, 02/21/17) ITCHY AND RED SKIN Morphine (Unverified Adverse Reaction, Intermediate, ABNORMAL DREAMS/ PASSED OUT, 02/21/17) Nitroglycerin (Unverified Adverse Reaction, Intermediate, GI SYMPTOMS, 02/21/17) Lisinopril (Unverified Adverse Reaction, Mild, COUGH, 02/21/17) Candesartan (Unverified Adverse Reaction, Unknown, cough, 02/21/17) Enalapril (Unverified Adverse Reaction, Unknown, cough, 02/21/17) Physical Exam Vital Signs Date Time Temp Pulse Resp B/P (MAP) Pulse Ox O2 Delivery O2 Flow Rate FiO2 02/21/17 15:30 59 17 150/71 94 Room Air 02/21/17 15:28 96 Room Air 02/21/17 15:00 56 17 163/69 96 Room Air 02/21/17 14:36 62 19 153/70 94 Room Air 02/21/17 14:00 64 18 135/67 93 Room Air 02/21/17 13:35 68 19 137/73 93 Room Air 02/21/17 13:15 76 02/21/17 13:05 64 22 169/108 94 Room Air 02/21/17 12:05 70 157/95 83 159/85 02/21/17 12:05 70 20 157/95 95 Room Air 83 159/85 02/21/17 11:30 61 20 161/87 94 Room Air 02/21/17 11:05 72 02/21/17 10:53 36.7 65 21 204/95 98 Room Air Physical Exam VITAL SIGNS: were reviewed as above. GENERAL:Non-toxic in appearance. SKIN: Warm dry and pink. HEAD: Normocephalic and atraumatic. Mild tenderness to palpation of the posterior head with minimal swelling. OROPHARYNX: Is clear and moist NECK: Supple without lymphadenopathy or meningismus. LUNGS: clear. HEART: Regular rate and rhythm. ABDOMEN: Soft and nontender. EXTREMITIES: Warm and well perfused. NEUROLOGICALLY: Awake alert and oriented without focal deficit. Cranial nerves 2 -12 are intact. There is no pronator drift. Cerebellar testing is within normal limits. There is no nystagmus. There is no facial droop. Speech is clear. Vision is grossly normal. MUSCULOSKELETAL: Good muscle tone. No evidence of trauma. Medical Decision & Procedures ER Provider Diagnostic Interpretation: Radiology results as stated below per my review and radiologist interpretation: CHEST ONE VIEW PORTABLE FINDINGS: The lungs are clear. Cardiac silhouette is normal in size. No pleural effusions. No pneumothorax. Cholecystectomy. IMPRESSION: No acute process. Electronically signed by: Sudhir Santillan M.D. 02/21/2017 1:15 PM HEAD WITHOUT CONTRAST (CT) FINDINGS: As400 Operator topogram: Unremarkable. Proportional ventricular and sulcal prominence except at the vertex where there is mild sulcal effacement and gyral crowding. The callosal angle is not significantly decreased. These findings are unchanged from prior exam. Brain parenchyma normal in appearance with preserved melara-white differentiation. No mass effect or midline shift. No hemorrhage or acute territorial infarct. No extra-axial fluid collection. Paranasal sinuses and mastoid air cells clear. Calvarium intact. IMPRESSION: 1. No acute intracranial pathology. 2. Findings equivocal for normal pressure hydrocephalus. Electronically signed by: Walter Lopez M.D. 02/21/2017 1:34 PM Laboratory Results 02/21/17 11:20 Red Blood Count 4.47, Mean Corpuscular Volume 88.8, Mean Corpuscular Hemoglobin 31.3, Mean Corpuscular Hemoglobin Concent 35.3, Mean Platelet Volume 10.6, Neutrophils (%) (Auto) 72.0, Lymphocytes (%) (Auto) 22.1, Monocytes (%) (Auto) 3.9, Eosinophils (%) (Auto) 1.4, Basophils (%) (Auto) 0.3, Neutrophils # (Auto) 5.17, Lymphocytes # (Auto) 1.59, Monocytes # (Auto) 0.28, Eosinophils # (Auto) 0.10, Basophils # (Auto) 0.02 02/21/17 11:20 Test 02/21/17 11:20 02/21/17 12:15 02/21/17 12:32 White Blood Count 7.18 K/uL (4.8-10.8) Red Blood Count 4.47 M/uL (4.2-5.4) Hemoglobin 14.0 g/dL (12.0-16.0) Hematocrit 39.7 % (37-47) Mean Corpuscular Volume 88.8 fL (80-100) Mean Corpuscular Hemoglobin 31.3 pg (25-34) Mean Corpuscular Hemoglobin Concent 35.3 g/dl (32-36) Platelet Count 206 K/uL (130-400) Mean Platelet Volume 10.6 fL (7.4-10.4) Neutrophils (%) (Auto) 72.0 % Lymphocytes (%) (Auto) 22.1 % Monocytes (%) (Auto) 3.9 % Eosinophils (%) (Auto) 1.4 % Basophils (%) (Auto) 0.3 % Neutrophils # (Auto) 5.17 K/uL (1.4-6.5) Lymphocytes # (Auto) 1.59 K/uL (1.2-3.4) Monocytes # (Auto) 0.28 K/uL (0.11-0.59) Eosinophils # (Auto) 0.10 K/uL (0-0.5) Basophils # (Auto) 0.02 K/uL (0-0.2) RDW Standard Deviation 43.4 fL (36.4-46.3) RDW Coefficient of Variation 13.3 % (11.5-14.5) Immature Granulocyte % (Auto) 0.3 % Immature Granulocyte # (Auto) 0.02 K/uL (0.00-0.02) Erythrocyte Sedimentation Rate 41 mm/hr (0-21) Anion Gap 11.0 mmol/L (3-11) Est Creatinine Clear Calc Drug Dose 56.7 ml/min Estimated GFR () 80.5 Estimated GFR (Non- 69.5 BUN/Creatinine Ratio 14.6 (10-20) Calcium Level 9.3 mg/dl (8.5-10.1) Total Bilirubin 0.9 mg/dl (0.2-1) Aspartate Amino Transf (AST/SGOT) 39 U/L (15-37) Alanine Aminotransferase (ALT/SGPT) 31 U/L (12-78) Alkaline Phosphatase 88 U/L (45-117) Total Creatine Kinase 88 U/L (26-192) Creatine Kinase MB 1.2 ng/ml (0.5-3.6) Creatine Kinase MB Ratio 1.4 (0-3.0) Total Protein 7.8 gm/dl (6.4-8.2) Albumin 4.0 gm/dl (3.4-5.0) Globulin 3.8 gm/dl (2.5-4.0) Albumin/Globulin Ratio 1.1 (0.9-2) Thyroid Stimulating Hormone (TSH) 0.539 uIu/ml (0.300-4.500) Urine Color YELLOW Urine Appearance CLEAR (CLEAR) Urine pH 8.0 (4.5-7.5) Urine Specific [place] 1.009 (1.000-1.030) Urine Protein NEG (NEG) Urine Glucose (UA) NEG (NEG) Urine Ketones NEG (NEG) Urine Occult Blood NEG (NEG) Urine Nitrite NEG (NEG) Urine Bilirubin NEG (NEG) Urine Urobilinogen NEG (NEG) Urine Leukocyte Esterase NEG (NEG) Urine WBC (Auto) 1-5 /hpf (0-5) Urine RBC (Auto) 0-4 /hpf (0-4) Urine Hyaline Casts (Auto) 0 /lpf (0-5) Urine Epithelial Cells (Auto) 10-20 /lpf (0-5) Urine Bacteria (Auto) NEG (NEG) Bedside Troponin I < 0.030 ng/ml (0-0.045) Laboratory results as stated above per my review. Medications Administered Medications (Trade) Dose Ordered Sig/Shira Route Start Time Stop Time Status Last Admin Dose Admin Sodium Chloride 1,000 ml @ 200 mls/hr Q5H STAT IV 02/21/17 12:37 02/21/17 17:36 02/21/17 13:08 200 MLS/HR Ondansetron HCl (Zofran Inj) 4 mg NOW STAT IV 02/21/17 12:42 02/21/17 12:44 DC 02/21/17 13:07 4 MG Meclizine HCl (Antivert Tab) 25 mg NOW STAT PO 02/21/17 12:43 02/21/17 12:45 DC 02/21/17 13:07 25 MG Lorazepam (Ativan Inj) 1 mg NOW STAT IV 02/21/17 12:57 02/21/17 12:58 DC 02/21/17 13:07 1 MG ECG Indication: other (dizziness) Rate (beats per minute): 66 Rhythm: normal sinus Findings: no acute ischemic change, no ectopy ED Course 1231: Previous medical records were reviewed. The patient was evaluated in room C10. A complete history and physical examination was performed. 1237: Ordered Sodium Chloride 1000 ml @ 200 mls/hr IV. 1242: Ordered Zofran Inj 4 mg IV, Antivert 25 mg PO. 1257: Ordered Ativan Inj 1 mg IV. 1510: On reevaluation, the patient is resting comfortably. I discussed the results and findings with her. She verbalized agreement of the treatment plan. I spoke with Dr. Delong of the [facility] Hospitalist Service. The patient will be evaluated for further management and care. Medical Decision Differential includes acute coronary syndrome, myocardial infarction, CVA, TIA, anemia, infection, pneumonia, UTI, pyelonephritis, poor nutrition, dehydration, electrolyte disturbance, hypoglycemia. This is a 72-year-old female who presents to the ED with a chief complaint of syncope yesterday. The patient states that she was standing, getting ready to take her medication when she suddenly found herself awakening on the floor. The patient states that she felt okay through the day after this yesterday but then developed some vertigo-like symptoms overnight. She tried meclizine this morning which she reports causes her to vomit. The patient denies any other significant symptoms. She does have a small erythematous, the posterior aspect of the head. CAT scan did not reveal any acute traumatic issues. Her neurological exam was unremarkable. During her ED stay, she had a 3 beat run of wide complex tachycardia likely a ventricular origin. The patient's blood work was unremarkable. She was treated with IV Ativan, IV fluids and IV Zofran. She was given by mouth meclizine. With this treatment, she continued having vertiginous like symptoms with movement. Orthostatic vital signs did not reveal any hypotension or tachycardia. Because the patient's run of V. tach and her continued vertigo symptoms, she'll be seen by the hospitalist for further inpatient evaluation and care. Medication Reconcilliation Current Medication List: was personally reviewed by me Blood Pressure Screening Patient's blood pressure: Elevated blood pressure Blood pressure disposition: Elevated BP felt to be situational Consults Time Called: 1505 Consulting Physician: Dr. Sindi PAGAN Returned Call: [id number] Discussed the patient's case. The patient will be evaluated for further treatment and disposition. Impression Primary Impression: Syncope Additional Impressions: Ventricular tachycardia Vertigo Scribe Attestation The scribe's documentation has been prepared under my direction and personally reviewed by me in its entirety. I confirm that the note above accurately reflects all work, treatment, procedures, and medical decision making performed by me. Departure Information Dispostion Being Evaluated By Hospitalist Referrals Candis Lee DO (PCP) Patient Instructions My [facility] Problem Qualifiers
[2017-02-21 15:28] VITALS: O2SAT 96; Ht 162.6 cm; Wt 68.5 kg
[2017-02-21] MEDS ORDERED: ACETAMINOPHEN 325 MG TAB PO PRN (16:15)
[2017-02-21] MEDS ORDERED: LORAZEPAM 2 MG/ML 1 ML VIAL IV PRN (16:15)
[2017-02-21] MEDS ORDERED: ALUMINUM/MAGNESIUM/SIMETH (MAALOX MAX) 30 ML UDC PO PRN (16:15)
[2017-02-21] MEDS ORDERED: POLYETHYLENE (MIRALAX) 17 GM PACK PO PRN (16:15)
[2017-02-21] MEDS ORDERED: MAGNESIUM HYDROXIDE SUSP 30 ML UDC PO PRN (16:15)
[2017-02-21] MEDS ORDERED: LORAZEPAM 0.5 MG TAB PO PRN (16:15)
[2017-02-21] MEDS ORDERED: MECLIZINE HCL 12.5 MG TAB PO PRN (16:15)
[2017-02-21] MEDS ORDERED: ONDANSETRON INJ 2 MG/ML 2 ML VIAL IV PRN (16:15)
[2017-02-21] MEDS ORDERED: LORAZEPAM INJ 0.5 MG in SYRINGE 0.75 ML IV PRN (16:45)
[2017-02-21 16:58] VITALS: O2SAT 94
--- NOTE | 2017-02-21 17:27 | History and Physical ---
History & Physical Date & Time of Service: Feb 21, 2017 at 16:58 Chief Complaint: Dizziness Primary Care Physician: Candis Lee DO History of Present Illness Source: patient, spouse 72 y/o F Hx HTN, HPL, DM, hypothyroidism. Presents with persistent vertigo which follows a syncopal episode and head trauma one day prior. The previous AM , the pt had walked into her kitchen to obtain a cup of tea and next remembers waking up on her back. She describes pain and a lump on the back of her head in addition to pain and bruising of her L shoulder. She was slightly dizzy following her fall but was able to ambulate independently and did not attend the hospital at that point. When she woke up this AM however, she noted increasing dizziness, loss of balance and nausea. She denies a current RUIZ, fevers, visual changes or unilateral weakness. She denies CP, SOB or palpitations which she can recall. The pt states that she has had a total of 4 syncopal episodes since April. She had undergone cardiology evaluation a few moths prior which included a Halter monitor. No diagnosis was elucidated. While in the ER she had a 3 beat run of VT which did not coincide with additional symptoms. Past Medical/Surgical History Medical Problems: (1) Hypertension (2) Hypothyroidism (3) DM II (4) Hyperlipidemia (5) Multiple syncopal episodes Family History Heart disease States both parents owing to CAD/[place] Social History Smoking Status: Never Smoker Marital Status: Multi-Drug Resistant Organisms History of MDRO: No Allergies Coded Allergies: Azithromycin (Verified Allergy, Severe, facial swelling, 02/21/17) BEE STING (Verified Allergy, Severe, SWELLS UP, 02/21/17) Cefazolin (Unverified Allergy, Severe, SHORTNESS OF BREATH, 02/21/17) lip swellling Adhesives (Unverified Allergy, Mild, HIVES, 02/21/17) ITCHY AND RED SKIN Morphine (Unverified Adverse Reaction, Intermediate, ABNORMAL DREAMS/ PASSED OUT, 02/21/17) Nitroglycerin (Unverified Adverse Reaction, Intermediate, GI SYMPTOMS, 02/21/17) Lisinopril (Unverified Adverse Reaction, Mild, COUGH, 02/21/17) Candesartan (Unverified Adverse Reaction, Unknown, cough, 02/21/17) Enalapril (Unverified Adverse Reaction, Unknown, cough, 02/21/17) Home Medications Scheduled Amlodipine (Norvasc), 5 MG PO DAILY Aspirin (Aspirin Chewable), 81 MG PO DAILY Atenolol (Tenormin), 25 MG PO DAILY Calcium Carbonate-Vitamin D (Calcium), 1 TAB PO DAILY Cholecalciferol (Vitamin D-3), 1,000 UNIT PO DAILY Chromium Picolinate (Chromium Picolinate), 200 MCG PO DAILY Cinnamon (Cinnamon), 1 CAP PO DAILY Cranberry (Vaccinium Macrocarp (Cranberry), 250 MG PO DAILY Escitalopram Oxalate (Lexapro), 5 MG PO DAILY Folic Acid (Folic Acid), 1 TAB PO DAILY Levothyroxine Sodium (Levothyroxine Sodium), 100 MCG PO DAILY Loratadine (Claritin), 10 MG PO DAILY Losartan Potassium (Cozaar), 50 MG PO AMPM Magnesium (Magnesium), 250 MG PO DAILY Metformin Hcl (Glucophage), 500 MG PO BID Multivitamin (Multivitamin), 1 TAB PO DAILY Sennosides-Docusate Sodium (Stool Softener), 1 TAB PO DAILY Scheduled PRN Lorazepam (Ativan), 0.25 MG PO DAILY PRN for Anxiety Ondansetron Hcl (Zofran), 8 MG PO UD PRN for Nausea Review of Systems Constitutional: No fever, No chills, No sweats Eyes: No worsening of vision ENT: No hearing loss, No unusual epistaxis, No nasal symptoms Respiratory: No cough, No sputum, No wheezing Cardiovascular: No chest pain, No orthopnea, No PND Abdomen: + nausea, No pain, No vomiting Musculoskeletal: No joint pain, No muscle pain Genitourinary - Female: No dysuria, No urinary frequency, No urinary urgency Neurologic: + vertigo, + balance problems, + problem reported (headache one day prior), No memory loss, No paralysis, No weakness Psychiatric: No depression symptoms Endocrine: No fatigue Hematologic / Lymphatic: No abnormal bleeding/bruising Integumentary: No rash Allergic / Immunologic: No environmental allergies Physical Exam Vital Signs Date Time Temp Pulse Resp B/P (MAP) Pulse Ox O2 Delivery O2 Flow Rate FiO2 02/21/17 16:30 60 18 153/78 94 Room Air 02/21/17 16:00 60 20 149/71 94 Room Air 02/21/17 15:30 59 17 150/71 94 Room Air 02/21/17 15:28 96 Room Air 02/21/17 15:00 56 17 163/69 96 Room Air 02/21/17 14:36 62 19 153/70 94 Room Air 02/21/17 14:00 64 18 135/67 93 Room Air 02/21/17 13:35 68 19 137/73 93 Room Air 02/21/17 13:15 76 02/21/17 13:05 64 22 169/108 94 Room Air 02/21/17 12:05 70 157/95 83 159/85 02/21/17 12:05 70 20 157/95 95 Room Air 83 159/85 02/21/17 11:30 61 20 161/87 94 Room Air 02/21/17 11:05 72 02/21/17 10:53 36.7 65 21 204/95 98 Room Air General Appearance: WD/WN, no apparent distress Head: normocephalic Eyes: normal inspection ENT: normal ENT inspection, pharynx normal Neck: supple, no JVD Respiratory/Chest: chest non-tender, lungs clear, normal breath sounds Cardiovascular: regular rate, rhythm, no edema, no gallop Abdomen/GI: normal bowel sounds, non tender, soft Back: normal inspection, no CVA tenderness Extremities/Musculoskelatal: normal inspection, no calf tenderness, normal capillary refill, no pedal edema, normal range of motion Neurologic/Psych: purchasing intern II-XII nml as tested, no motor/sensory deficits, alert, normal mood/affect, normal reflexes, oriented x 3 Skin: normal color, warm/dry, no rash Diagnostics Laboratory Results Results Past 24 Hours Test 02/21/17 11:20 02/21/17 12:15 02/21/17 12:32 02/21/17 16:07 Range/Units White Blood Count 7.18 4.8-10.8 K/uL Red Blood Count 4.47 4.2-5.4 M/uL Hemoglobin 14.0 12.0-16.0 g/dL Hematocrit 39.7 37-47 % Mean Corpuscular Volume 88.8 80-100 fL Mean Corpuscular Hemoglobin 31.3 25-34 pg Mean Corpuscular Hemoglobin Concent 35.3 32-36 g/dl Platelet Count 206 130-400 K/uL Mean Platelet Volume 10.6 7.4-10.4 fL Neutrophils (%) (Auto) 72.0 % Lymphocytes (%) (Auto) 22.1 % Monocytes (%) (Auto) 3.9 % Eosinophils (%) (Auto) 1.4 % Basophils (%) (Auto) 0.3 % Neutrophils # (Auto) 5.17 1.4-6.5 K/uL Lymphocytes # (Auto) 1.59 1.2-3.4 K/uL Monocytes # (Auto) 0.28 0.11-0.59 K/uL Eosinophils # (Auto) 0.10 0-0.5 K/uL Basophils # (Auto) 0.02 0-0.2 K/uL RDW Standard Deviation 43.4 36.4-46.3 fL RDW Coefficient of Variation 13.3 11.5-14.5 % Immature Granulocyte % (Auto) 0.3 % Immature Granulocyte # (Auto) 0.02 0.00-0.02 K/uL Erythrocyte Sedimentation Rate 41 0-21 mm/hr Sodium Level 139 136-145 mmol/L Potassium Level 3.7 3.5-5.1 mmol/L Chloride Level 103 98-107 mmol/L Carbon Dioxide Level 25 21-32 mmol/L Anion Gap 11.0 3-11 mmol/L Blood Urea Nitrogen 12 7-18 mg/dl Creatinine 0.83 0.60-1.20 mg/dl Est Creatinine Clear Calc Drug Dose 56.7 ml/min Estimated GFR () 80.5 Estimated GFR (Non- 69.5 BUN/Creatinine Ratio 14.6 10-20 Random Glucose 136 70-99 mg/dl Calcium Level 9.3 8.5-10.1 mg/dl Total Bilirubin 0.9 0.2-1 mg/dl Aspartate Amino Transf (AST/SGOT) 39 15-37 U/L Alanine Aminotransferase (ALT/SGPT) 31 12-78 U/L Alkaline Phosphatase 88 45-117 U/L Total Creatine Kinase 88 26-192 U/L Creatine Kinase MB 1.2 0.5-3.6 ng/ml Creatine Kinase MB Ratio 1.4 0-3.0 Total Protein 7.8 6.4-8.2 gm/dl Albumin 4.0 3.4-5.0 gm/dl Globulin 3.8 2.5-4.0 gm/dl Albumin/Globulin Ratio 1.1 0.9-2 Thyroid Stimulating Hormone (TSH) 0.539 0.300-4.500 uIu/ml Urine Color YELLOW Urine Appearance CLEAR CLEAR Urine pH 8.0 4.5-7.5 Urine Specific [place] 1.009 1.000-1.030 Urine Protein NEG NEG Urine Glucose (UA) NEG NEG Urine Ketones NEG NEG Urine Occult Blood NEG NEG Urine Nitrite NEG NEG Urine Bilirubin NEG NEG Urine Urobilinogen NEG NEG Urine Leukocyte Esterase NEG NEG Urine WBC (Auto) 1-5 0-5 /hpf Urine RBC (Auto) 0-4 0-4 /hpf Urine Hyaline Casts (Auto) 0 0-5 /lpf Urine Epithelial Cells (Auto) 10-20 0-5 /lpf Urine Bacteria (Auto) NEG NEG Bedside Troponin I < 0.030 0-0.045 ng/ml Normal EKG Impression Assessment and Plan 72 y/o F Hx HTN, HPL, DM, hypothyroidism. Presents with persistent vertigo which follows a syncopal episode and head trauma one day prior. The previous AM , the pt had walked into her kitchen and next remembers waking up on her back. She describes pain and a lump on the back of her head in addition to pain and bruising of her L shoulder. When she woke up this AM, she noted increasing dizziness, loss of balance and nausea. She denies a current RUIZ, fevers, visual changes or unilateral weakness. She denies CP, SOB or palpitations which she can recall. The pt states that she has had a total of 4 syncopal episodes since April. She had undergone cardiology evaluation a few moths prior which included a Halter monitor. No diagnosis was elucidated. While in the ER she had a 3 beat run of VT which did not coincide with additional symptoms. 1) Syncope - Described as sudden and is concerning for arrhythmia - we will monitor on telemetry overnight and consult cardiology. She takes a daily B hilary which we will continue. EKG shows a NSR on admission with a normal QT interval. 2) Vertigo - possibly post-concussion related - will provide IVF and supportive meds - would avoid repeated administration of pro-arrhythmic antiemetics for time being. There is some concern for NPH on CT head - her CT head is however, unchanged from previous - she does not describe incontinence. This may require further workup if there is no short term improvement in her symptoms. 3) HTN - continue prescribed meds including Norvasc and Atenolol with parameters. 4) Hypothyroidism - cont Synthroid - TSH WNL 5) DM - placed on SS Full code - SCDs only due to head trauma Total time for this admit including review of labs, meds, imaging, EKG records - discussion with pot and ER attending - 36 min Level of Care Telemetry Advanced Directives Existing Living Will: Yes Existing Power of Supervisor Fertilizer Processing: Yes (PARIS ) Resuscitation Status FULL RESUSCITATION VTE Prophylaxis VTE Risk Assessment Done? Y/N: Yes Risk Level: Moderate Given or contraindicated: SCD's
[2017-02-21 17:36] VITALS: BP_SYST 173; BP_SYST 178; BP_DIAS 74; BP_DIAS 75; PULSE 63; TEMP 36.5; O2SAT 95
[2017-02-21] MEDS ORDERED: GLUCAGON FOR INJ 1 MG VIAL SQ PRN (18:00)
[2017-02-21] MEDS ORDERED: GLUCOSE 40% GEL 15 GM TUBE PO PRN (18:00)
[2017-02-21] MEDS ORDERED: DEXTROSE 50% 50 ML SYR IV PRN (18:00)
[2017-02-21] MEDS ORDERED: GLUCOSE 10 TABS/TUBE PO PRN (18:00)
[2017-02-21] MEDS ORDERED: NSS + 20MEQ KCL 1000ML 1,000 ML IV SCH (18:00)
[2017-02-21] MEDS ORDERED: IV FLUIDS COMPLETED PRN (18:30)
[2017-02-21 19:18] VITALS: BP 152/87; PULSE 65; TEMP 36.3; O2SAT 93
[2017-02-21] MEDS: INSULIN ASPART 100 UNITS/ML 3 ML PEN SC SCH (20:36)
[2017-02-21 23:43] VITALS: BP 138/72; PULSE 58; TEMP 36.4; O2SAT 97
[2017-02-22] VITALS (7 sets, daily range): BP systolic 123–155; BP diastolic 58–74; PULSE 52–66; TEMP 36.4–36.7; O2SAT 94–97
[2017-02-22] MEDS: LEVOTHYROXINE 100 MCG TAB PO SCH (06:27)
[2017-02-22] MEDS: INSULIN ASPART 100 UNITS/ML 3 ML PEN SC SCH ×4 (06:30→20:50)
[2017-02-22] MEDS: LOSARTAN POTASSIUM 50 MG TAB PO SCH (08:15)
[2017-02-22] MEDS: MAGNESIUM OXIDE 400 MG TAB PO SCH (08:15)
[2017-02-22] MEDS: ASPIRIN 81 MG ECTAB PO SCH (08:16)
[2017-02-22] MEDS: ESCITALOPRAM OXALATE 10 MG TAB PO SCH (08:16)
[2017-02-22] MEDS: AMLODIPINE BESYLATE 5 MG TAB PO SCH (08:16)
[2017-02-22 09:30] LABS: MAGNESIUM 1.7 mg/dl (1.8-2.4)
--- NOTE | 2017-02-22 10:13 | Cardiology Consultation ---
Cardiology Consultation Date of Consultation: Feb 22, 2017. Requesting Physician: Dr. Delong Attending Physician: Dr. Lo Reason for Consultation: Syncope Pt evaluation today including: conversation w/ patient, conversation w/ family , physical exam, chart review, lab review, review of studies, review of inpatient medication list, conversation w/ attending History of Present Illness Ms. French is a 72-year-old female with a past medical history significant for hypertension, hyperlipidemia, type 2 diabetes mellitus, hypothyroidism, anxiety/ depression, and lumbar spinal stenosis who presented to the ED yesterday with complaints of a dizziness following syncopal event which occurred the day prior. The patient reports that in May 2016, she slipped and fell on ice. She hit the back of her head with the fall. She had another fall after that while going to sit down on the toilet, and she also hit her head with this fall. She remembers falling on these occasions and did not lose consciousness. She subsequently had two events where she "blacked out" while standing in her kitchen, the most recent event was 2 days ago. On these occasions she was standing when she loss consciousness and woke up on the floor. She had no prodromal symptoms of dizziness, lightheadedness, chest pain, shortness of breath, or palpitations prior to blacking out. She hit her head on these two occasions as well. She also reports that since May, she has had intermittent dizziness where she feels as though the room is spinning. Her symptoms appear to occur at random. She can be lying in bed or sitting at the edge of her bed when the dizziness occurs. She was evaluated at [facility] in December for this complaint. Work-up at that time included an echocardiogram, carotid doppler, ECG, and cardiac enzymes, which were all unremarkable. The dizziness yesterday was accompanied by vomiting. She admits to an episode of left-sided chest discomfort described as a "hurt" about 2 months ago, which occurred at rest and lasted less than 5 minutes before self-resolving. She denies any other episodes of chest pain including exertional chest pain. She denies shortness of breath or limiting dyspnea. She denies orthopnea, PND, or significant edema. She feels her heart racing during times of stress and anxiety. She denies any other palpitations. She denies cerebrovascular symptoms or abnormal bleeding. Review of Systems: As noted in HPI. All other 10 point ROS otherwise negative. Past Medical/Surgical History 1. Hysterectomy 2. Cholecystectomy 3. Appendectomy 4. Right total hip arthroplasty Family History Heart disease Sister with CAD in 40's, mother with CAD in 40's, father of NE age 68 Social History Smoking Status: Never Smoker History of Alcohol Use: No She is . Negative for smoking, alcohol, or drug use. Review of Systems Heme: + abnormal bleeding/bruising Allergies Coded Allergies: Azithromycin (Verified Allergy, Severe, facial swelling, 02/21/17) BEE STING (Verified Allergy, Severe, SWELLS UP, 02/21/17) Cefazolin (Unverified Allergy, Severe, SHORTNESS OF BREATH, 02/21/17) lip swellling Adhesives (Unverified Allergy, Mild, HIVES, 02/21/17) ITCHY AND RED SKIN Morphine (Unverified Adverse Reaction, Intermediate, ABNORMAL DREAMS/ PASSED OUT, 02/21/17) Nitroglycerin (Unverified Adverse Reaction, Intermediate, GI SYMPTOMS, 02/21/17) Lisinopril (Unverified Adverse Reaction, Mild, COUGH, 02/21/17) Candesartan (Unverified Adverse Reaction, Unknown, cough, 02/21/17) Enalapril (Unverified Adverse Reaction, Unknown, cough, 02/21/17) Medications Current Inpatient Medications Medications (Trade) Dose Ordered Sig/Shira Route Start Time Stop Time Status Last Admin Dose Admin Acetaminophen (Tylenol Tab) 650 mg Q4H PRN PO 02/21/17 16:15 03/23/17 16:14 Al Hydrox/Mg Hydrox/Simethicone (Maalox Max Susp) 15 ml Q4H PRN PO 02/21/17 16:15 03/23/17 16:14 Magnesium Hydroxide (Milk Of Magnesia Susp) 30 ml Q12H PRN PO 02/21/17 16:15 03/23/17 16:14 Ondansetron HCl (Zofran Inj) 4 mg Q6H PRN IV 02/21/17 16:15 03/23/17 16:14 Polyethylene (Miralax Powder Packet) 17 gm DAILY PRN PO 02/21/17 16:15 03/23/17 16:14 Amlodipine Besylate (Norvasc Tab) 5 mg DAILY PO 02/22/17 09:00 11/3/17 08:59 02/22/17 08:16 5 MG Aspirin (Ecotrin Tab) 81 mg DAILY PO 02/22/17 09:00 03/24/17 08:59 02/22/17 08:16 81 MG Atenolol (Tenormin Tab) 25 mg DAILY PO 02/22/17 09:00 03/24/17 08:59 02/22/17 08:16 25 MG Escitalopram Oxalate (Lexapro Tab) 5 mg DAILY PO 02/22/17 09:00 03/24/17 08:59 02/22/17 08:16 5 MG Levothyroxine Sodium (Synthroid Tab) 100 mcg DAILYBB PO 02/22/17 06:30 03/24/17 06:59 02/22/17 06:27 100 MCG Lorazepam (Ativan Tab) 0.25 mg DAILY PRN PO 02/21/17 16:15 03/23/17 16:14 Losartan Potassium (coZAAR TAB) 50 mg DAILY PO 02/22/17 09:00 03/24/17 08:59 02/22/17 08:15 50 MG Magnesium Oxide (Mag-Ox Tab) 400 mg DAILY PO 02/22/17 09:00 03/24/17 08:59 02/22/17 08:15 400 MG Insulin Aspart (novoLOG ASPART) SLIDING SCALE G... ACHS SC 02/21/17 21:00 03/23/17 20:59 Lorazepam (Ativan Inj) 0.5 mg Q12H PRN IV 02/21/17 16:15 03/23/17 16:14 Meclizine HCl (Antivert Tab) 12.5 mg Q8H PRN PO 02/21/17 16:15 03/23/17 16:14 Lorazepam 0.5 mg/ Syringe 1 ml @ 1 mls/min Q12H PRN IV 02/21/17 16:45 03/23/17 16:44 Glucose (Glucose 40% Gel) 15-30 GRAMS 15 GRAMS... UD PRN PO 02/21/17 18:00 03/23/17 17:59 Glucose (Glucose Chew Tab) 4-8 Tablets 4 Tabl... UD PRN PO 02/21/17 18:00 03/23/17 17:59 Dextrose (Dextrose 50% 50ML Syringe) 25-50ML OF 50% DW IV FOR... UD PRN IV 02/21/17 18:00 03/23/17 17:59 Glucagon (Glucagon Inj) 1 mg UD PRN SQ 02/21/17 18:00 03/23/17 17:59 Miscellaneous (Iv Fluids Completed) 1 ea PRN PRN N/A 02/21/17 18:30 02/21/18 18:29 02/22/17 05:06 1 EA Physical Exam Vital Signs Past 12 Hours Date Time Temp Pulse Resp B/P (MAP) Pulse Ox O2 Delivery O2 Flow Rate FiO2 02/22/17 08:10 66 02/22/17 07:13 36.6 53 18 155/66 (95) 94 Room Air 02/22/17 04:01 36.4 58 16 138/72 (94) 97 Room Air 02/22/17 04:00 Room Air 02/22/17 00:00 Room Air 02/21/17 23:43 36.4 58 18 138/72 (94) 97 Room Air Constitutional: Alert, oriented, in no acute distress HEENT: Normocephalic. EOMs intact. Sclera anicteric. Face is symmetric. No perioral cyanosis. Mucous membranes moist. Neck: Supple, no JVD, no carotid bruits Pulmonary: Normal respiratory effort, clear to auscultation bilaterally Cardiac: Regular rate and rhythm, normal S1 and S2, no gallops, no rubs, no obvious murmurs Extremities: No clubbing, cyanosis, or edema. Pulses 2+ and symmetric Abdomen: Normal bowel sounds, soft, non-tender, no abdominal mass palpated Skin: Normal skin color, turgor, and pigmentation, no rash, no skin lesions Neurological: Oriented to person, place, and time Data Laboratory Results: Last 24 Hours Test 02/21/17 11:20 02/21/17 12:15 02/21/17 12:32 02/21/17 20:29 White Blood Count 7.18 K/uL Red Blood Count 4.47 M/uL Hemoglobin 14.0 g/dL Hematocrit 39.7 % Mean Corpuscular Volume 88.8 fL Mean Corpuscular Hemoglobin 31.3 pg Mean Corpuscular Hemoglobin Concent 35.3 g/dl Platelet Count 206 K/uL Mean Platelet Volume 10.6 fL Neutrophils (%) (Auto) 72.0 % Lymphocytes (%) (Auto) 22.1 % Monocytes (%) (Auto) 3.9 % Eosinophils (%) (Auto) 1.4 % Basophils (%) (Auto) 0.3 % Neutrophils # (Auto) 5.17 K/uL Lymphocytes # (Auto) 1.59 K/uL Monocytes # (Auto) 0.28 K/uL Eosinophils # (Auto) 0.10 K/uL Basophils # (Auto) 0.02 K/uL RDW Standard Deviation 43.4 fL RDW Coefficient of Variation 13.3 % Immature Granulocyte % (Auto) 0.3 % Immature Granulocyte # (Auto) 0.02 K/uL Erythrocyte Sedimentation Rate 41 mm/hr Sodium Level 139 mmol/L Potassium Level 3.7 mmol/L Chloride Level 103 mmol/L Carbon Dioxide Level 25 mmol/L Anion Gap 11.0 mmol/L Blood Urea Nitrogen 12 mg/dl Creatinine 0.83 mg/dl Est Creatinine Clear Calc Drug Dose 56.7 ml/min Estimated GFR () 80.5 Estimated GFR (Non- 69.5 BUN/Creatinine Ratio 14.6 Random Glucose 136 mg/dl Calcium Level 9.3 mg/dl Magnesium Level 1.5 mg/dl Total Bilirubin 0.9 mg/dl Aspartate Amino Transf (AST/SGOT) 39 U/L Alanine Aminotransferase (ALT/SGPT) 31 U/L Alkaline Phosphatase 88 U/L Total Creatine Kinase 88 U/L Creatine Kinase MB 1.2 ng/ml Creatine Kinase MB Ratio 1.4 Total Protein 7.8 gm/dl Albumin 4.0 gm/dl Globulin 3.8 gm/dl Albumin/Globulin Ratio 1.1 Thyroid Stimulating Hormone (TSH) 0.539 uIu/ml Urine Color YELLOW Urine Appearance CLEAR Urine pH 8.0 Urine Specific [place] 1.009 Urine Protein NEG Urine Glucose (UA) NEG Urine Ketones NEG Urine Occult Blood NEG Urine Nitrite NEG Urine Bilirubin NEG Urine Urobilinogen NEG Urine Leukocyte Esterase NEG Urine WBC (Auto) 1-5 /hpf Urine RBC (Auto) 0-4 /hpf Urine Hyaline Casts (Auto) 0 /lpf Urine Epithelial Cells (Auto) 10-20 /lpf Urine Bacteria (Auto) NEG Bedside Troponin I < 0.030 ng/ml Bedside Glucose 109 mg/dl Test 02/22/17 07:21 10/4/17 08:31 Bedside Glucose 96 mg/dl Head CT: No acute intracranial pathology. Findings equivocal for normal pressure hydrocephalus. CXR: No acute process. EKG: Normal sinus rhythm at 66 bpm. Telemetry reviewed: Sinus rhythm with first degree AV block. 50-70's. PACs. Echo 01/15/17: 1. There is mild asymmetric left ventricular hypertrophy. 2. Left ventricular systolic function is normal. 3. Grade I diastolic dysfunction, (abnormal relaxation pattern). 4. The left ventricular wall motion is normal. 5. There is mild to moderate mitral regurgitation. 6. There is mild to moderate tricuspid regurgitation. Carotid artery ultrasound 01/15/17: 1. No hemodynamically significant stenosis or significant atherosclerotic plaquing. 2. Normal antegrade vertebral flow bilaterally. Dobutamine stress echo 07/13/16 (per report): Negative for ischemia. Frequent PVCs during dobutamine. Assessment & Plan The patient is a 72-year-old female with no known cardiac history who has had what appears to be 2 syncopal events in the last few months with the most recent being 2 days ago. The etiology of the syncope is unclear. Work-up thus far has been unremarkable including echo, carotid doppler, ECG, and telemetry monitoring. It is recommended that she undergo longer duration monitoring with an event monitor. If that monitor is unrevealing, would proceed with loop recorder implantation. The patient may also benefit from neurologic evaluation if her cardiac work-up is unrevealing, especially given her recent falls with head injury. The patient was discussed with Dr. Lo. Please see his addendum below. ADDENDUM BY CARDIOLOGY attending: Patient was seen and examined. Agree with above with the following additions. Most recent syncope occurred without any symptoms prior to the event. She did have her typical vertigo/spinning sensation following the event with some vomiting. She had been eating and drinking her usual amount. Some of her loss of consciousness in the past occurred after striking her head from mechanical falls but the most recent syncopal episode had no specific trigger. She denies angina, shortness of breath, palpitations, or lightheadedness. Social history, family history, medications, labs, ECG, telemetry personally reviewed. Exam notable for: Vitals reviewed. Orthostatic vitals were ordered. General: No acute distress. Alert. Neck: No bruits. No JVD Cardiac: Regular. Normal S1 and S2. No murmurs, rubs, or gallops. Lungs: Clear to auscultation bilaterally. Extremities: No cyanosis or edema. ECG 02/21/2017 personally reviewed. Sinus rhythm at 66 bpm. Normal ECG. Telemetry personally reviewed: No arrhythmia. Sinus rhythm. No significant pauses or significant bradycardia. ASSESSMENT/PLAN: 1. Syncope: Etiology uncertain. It is concerning that there were no symptoms beforehand. Would like to investigate further for arrhythmia. Recommend 30 day event monitor and if this is unremarkable/no symptoms, would then consider loop recorder. No driving, which was discussed with her and primary service. She has not been driving. Orthostatic vital signs ordered. If no cardiac etiology is identifiable with recurrent symptoms, would also consider neurologic evaluation. It appears as though the symptoms occurred after striking her head and perhaps some of her vertigo and other symptoms could be related to post concussive symptoms. 2. Hypertension: Blood pressure has been elevated for most of her hospital stay. Titrate medications as appropriate. She is well beta blocked with heart rates occasionally in the 50s and therefore would not further titrate beta- hilary. 3. Vertigo: Could be secondary to concussion in May after mechanical fall. Treatment as per primary service. She had no vertigo symptoms prior to her most recent syncopal episode. 4. Disposition: She has asked to follow-up with Cardiology in the [facility] [place] office. An appointment is being scheduled for her to meet with Dr. Milian 1-2 months following hospital discharge. A 30 day event monitor has been ordered through the outpatient setting and will be mailed to her with results to be sent to Dr. Milian for his review prior to their appointment. Plan of care has been discussed with the primary hospitalist service, as well as Dr. Milian. Thank you for allowing me to participate in the care of your patient. Please call for any other questions or concerns. Sincerely, Shayan Lo M.D.
--- NOTE | 2017-02-22 11:29 | Hospitalist Progress Note ---
Hospitalist Progress Note Date of Service Feb 22, 2017. (Lana Pierre ., PA-C) Subjective Pt evaluation today including: conversation w/ patient, physical exam, lab review, review of studies, conversation w/ management consultant (Dr. Lo ), review of inpatient medication list Voiding: no voiding problems Patient states she is still feeling lightheaded/dizziness. Sitting in bedside chair. Ongoing issue for about 1 year now. Symptoms randomly come and go- no alleviating/exacerbating factors. Notes at times she is awaken from sleep w/ vertigo. Multiple falls and injuries to head. +Syncopal episodes, latest one being on 02/21. She was seen in 12/2016 for same symptoms- EKG, ECHO, carotid US unremarkable. Discharged home w/ Meclizine. Did not require PRN use until yesterday. Notes she did take a tablet, but vomited 45 mins later. Eating and drinking OK. Lives at home w/ . Patient denies any fever, chills, sweats, vision changes, CP, palpitations, edema, SOB, wheezing, cough, abdominal pain, nausea, diarrhea, urinary symptoms , melena, numbness/tingling, weakness, muscle/joint pain, anxiety/depression, active bleeding, or new skin discoloration/changes. (Lana Pierre ., PA-C) Medications Current Inpatient Medications Medications (Trade) Dose Ordered Sig/Shira Route Start Time Stop Time Status Last Admin Dose Admin Acetaminophen (Tylenol Tab) 650 mg Q4H PRN PO 02/21/17 16:15 03/23/17 16:14 Al Hydrox/Mg Hydrox/Simethicone (Maalox Max Susp) 15 ml Q4H PRN PO 02/21/17 16:15 03/23/17 16:14 Magnesium Hydroxide (Milk Of Magnesia Susp) 30 ml Q12H PRN PO 02/21/17 16:15 03/23/17 16:14 Ondansetron HCl (Zofran Inj) 4 mg Q6H PRN IV 02/21/17 16:15 03/23/17 16:14 Polyethylene (Miralax Powder Packet) 17 gm DAILY PRN PO 02/21/17 16:15 03/23/17 16:14 Amlodipine Besylate (Norvasc Tab) 5 mg DAILY PO 02/22/17 09:00 03/24/17 08:59 02/22/17 08:16 5 MG Aspirin (Ecotrin Tab) 81 mg DAILY PO 02/22/17 09:00 03/24/17 08:59 02/22/17 08:16 81 MG Atenolol (Tenormin Tab) 25 mg DAILY PO 02/22/17 09:00 03/24/17 08:59 02/22/17 08:16 25 MG Escitalopram Oxalate (Lexapro Tab) 5 mg DAILY PO 02/22/17 09:00 03/24/17 08:59 02/22/17 08:16 5 MG Levothyroxine Sodium (Synthroid Tab) 100 mcg DAILYBB PO 02/22/17 06:30 03/24/17 06:59 02/22/17 06:27 100 MCG Lorazepam (Ativan Tab) 0.25 mg DAILY PRN PO 02/21/17 16:15 03/23/17 16:14 Losartan Potassium (coZAAR TAB) 50 mg DAILY PO 02/22/17 09:00 03/24/17 08:59 02/22/17 08:15 50 MG Magnesium Oxide (Mag-Ox Tab) 400 mg DAILY PO 02/22/17 09:00 03/24/17 08:59 02/22/17 08:15 400 MG Insulin Aspart (novoLOG ASPART) SLIDING SCALE G... ACHS SC 02/21/17 21:00 03/23/17 20:59 Lorazepam (Ativan Inj) 0.5 mg Q12H PRN IV 02/21/17 16:15 03/23/17 16:14 Meclizine HCl (Antivert Tab) 12.5 mg Q8H PRN PO 02/21/17 16:15 03/23/17 16:14 Lorazepam 0.5 mg/ Syringe 1 ml @ 1 mls/min Q12H PRN IV 02/21/17 16:45 03/23/17 16:44 Glucose (Glucose 40% Gel) 15-30 GRAMS 15 GRAMS... UD PRN PO 02/21/17 18:00 03/23/17 17:59 Glucose (Glucose Chew Tab) 4-8 Tablets 4 Tabl... UD PRN PO 02/21/17 18:00 11/2/17 17:59 Dextrose (Dextrose 50% 50ML Syringe) 25-50ML OF 50% DW IV FOR... UD PRN IV 02/21/17 18:00 03/23/17 17:59 Glucagon (Glucagon Inj) 1 mg UD PRN SQ 02/21/17 18:00 03/23/17 17:59 Miscellaneous (Iv Fluids Completed) 1 ea PRN PRN N/A 02/21/17 18:30 02/21/18 18:29 02/22/17 05:06 1 EA Senna/Docusate Sodium (Senokot S Tab) 1 tab QAM PO 02/22/17 10:45 03/24/17 10:44 (Lana Pierre, MATTI) Objective Vital Signs Date Time Temp Pulse Resp B/P (MAP) Pulse Ox O2 Delivery O2 Flow Rate FiO2 02/22/17 08:10 66 02/22/17 08:00 Room Air 02/22/17 07:13 36.6 53 18 155/66 (95) 94 Room Air 02/22/17 04:01 36.4 58 16 138/72 (94) 97 Room Air 02/22/17 04:00 Room Air 02/22/17 00:00 Room Air 02/21/17 23:43 36.4 58 18 138/72 (94) 97 Room Air 02/21/17 20:00 Room Air 02/21/17 19:18 36.3 65 20 152/87 (108) 93 Room Air 02/21/17 17:36 36.5 63 18 173/74 (107) 95 Room Air 178/75 (109) 02/21/17 16:58 60 18 153/78 94 02/21/17 16:30 60 18 153/78 94 Room Air 02/21/17 16:00 60 20 149/71 94 Room Air 02/21/17 15:30 59 17 150/71 94 Room Air 02/21/17 15:28 96 Room Air 02/21/17 15:00 56 17 163/69 96 Room Air 02/21/17 14:36 62 19 153/70 94 Room Air 02/21/17 14:00 64 18 135/67 93 Room Air 02/21/17 13:35 68 19 137/73 93 Room Air 02/21/17 13:15 76 02/21/17 13:05 64 22 169/108 94 Room Air 02/21/17 12:05 70 157/95 83 159/85 02/21/17 12:05 70 20 157/95 95 Room Air 83 159/85 02/21/17 11:30 61 20 161/87 94 Room Air (Lana Pierre PA-C) Physical Exam General Appearance: no apparent distress Eyes: normal inspection, PERRL ENT: hearing grossly normal Neck: supple Respiratory/Chest: lungs clear, no respiratory distress, no accessory muscle use Cardiovascular: regular rate, rhythm Abdomen: normal bowel sounds, non tender, soft Extremities: no pedal edema, no calf tenderness Neurologic/Psychiatric: alert, normal mood/affect, oriented x 3 Skin: normal color, warm/dry, no rash (Lana Pierre PA-C) Laboratory Results Last 24 Hours Test 02/21/17 11:20 02/21/17 12:15 02/21/17 12:32 02/21/17 20:29 White Blood Count 7.18 K/uL Red Blood Count 4.47 M/uL Hemoglobin 14.0 g/dL Hematocrit 39.7 % Mean Corpuscular Volume 88.8 fL Mean Corpuscular Hemoglobin 31.3 pg Mean Corpuscular Hemoglobin Concent 35.3 g/dl Platelet Count 206 K/uL Mean Platelet Volume 10.6 fL Neutrophils (%) (Auto) 72.0 % Lymphocytes (%) (Auto) 22.1 % Monocytes (%) (Auto) 3.9 % Eosinophils (%) (Auto) 1.4 % Basophils (%) (Auto) 0.3 % Neutrophils # (Auto) 5.17 K/uL Lymphocytes # (Auto) 1.59 K/uL Monocytes # (Auto) 0.28 K/uL Eosinophils # (Auto) 0.10 K/uL Basophils # (Auto) 0.02 K/uL RDW Standard Deviation 43.4 fL RDW Coefficient of Variation 13.3 % Immature Granulocyte % (Auto) 0.3 % Immature Granulocyte # (Auto) 0.02 K/uL Erythrocyte Sedimentation Rate 41 mm/hr Sodium Level 139 mmol/L Potassium Level 3.7 mmol/L Chloride Level 103 mmol/L Carbon Dioxide Level 25 mmol/L Anion Gap 11.0 mmol/L Blood Urea Nitrogen 12 mg/dl Creatinine 0.83 mg/dl Est Creatinine Clear Calc Drug Dose 56.7 ml/min Estimated GFR () 80.5 Estimated GFR (Non- 69.5 BUN/Creatinine Ratio 14.6 Random Glucose 136 mg/dl Calcium Level 9.3 mg/dl Magnesium Level 1.5 mg/dl Total Bilirubin 0.9 mg/dl Aspartate Amino Transf (AST/SGOT) 39 U/L Alanine Aminotransferase (ALT/SGPT) 31 U/L Alkaline Phosphatase 88 U/L Total Creatine Kinase 88 U/L Creatine Kinase MB 1.2 ng/ml Creatine Kinase MB Ratio 1.4 Total Protein 7.8 gm/dl Albumin 4.0 gm/dl Globulin 3.8 gm/dl Albumin/Globulin Ratio 1.1 Thyroid Stimulating Hormone (TSH) 0.539 uIu/ml Urine Color YELLOW Urine Appearance CLEAR Urine pH 8.0 Urine Specific Jackson 1.009 Urine Protein NEG Urine Glucose (UA) NEG Urine Ketones NEG Urine Occult Blood NEG Urine Nitrite NEG Urine Bilirubin NEG Urine Urobilinogen NEG Urine Leukocyte Esterase NEG Urine WBC (Auto) 1-5 /hpf Urine RBC (Auto) 0-4 /hpf Urine Hyaline Casts (Auto) 0 /lpf Urine Epithelial Cells (Auto) 10-20 /lpf Urine Bacteria (Auto) NEG Bedside Troponin I < 0.030 ng/ml Bedside Glucose 109 mg/dl Test 02/22/17 07:21 02/22/17 08:31 Bedside Glucose 96 mg/dl Magnesium Level 1.7 mg/dl Troponin I < 0.015 ng/ml (Lana Pierre, ELISSAC) Assessment and Plan 72 y/o F Hx HTN, HPL, DM, hypothyroidism. Presents with persistent vertigo which follows a syncopal episode and head trauma one day prior. The previous AM , the pt had walked into her kitchen and next remembers waking up on her back. She describes pain and a lump on the back of her head in addition to pain and bruising of her L shoulder. When she woke up this AM, she noted increasing dizziness, loss of balance and nausea. She denies a current RUIZ, fevers, visual changes or unilateral weakness. She denies CP, SOB or palpitations which she can recall. The pt states that she has had a total of 4 syncopal episodes since April. She had undergone cardiology evaluation a few moths prior which included a Halter monitor. No diagnosis was elucidated. While in the ER she had a 3 beat run of VT which did not coincide with additional symptoms. Syncope, vertigo: - Admit to tele for cardiac monitoring- no acute events - Cardiac enzymes- negative - EKG- unremarkable - Meclizine 12.5 mg q8 hrs PRN vertigo - PT/OT consultation - Check orthostatic BPs/pulse - Head CT- no acute intracranial pathology, NPH - MRI brain combo pending - If cardiac workup unremarkable- consider neurology f/u - Consult cardiology, appreciate recommendations -- Set-up 30-day event monitor -- Wishes to follow w/ [place] [facility]- f/u w/ Dr. Milian in 1-2 months -- Should NOT drive Hypomagnesemia at 1.5- IMPROVING: Started Mag-Ox 400 mg daily, follow mag level HTN: - Continue Norvasc 5 mg daily, Losartan 50 mg daily - Hold Atenolol 25 mg daily due to syncope/bradycardia- can titrate above medications PRN HTN Hypothyroidism- TSH 0.529: Continue Synthroid 100 mcg daily T2DM: - Metformin 500 mg BID held while inpatient - BSG ACHS and sliding insulin scale Anxiety: Lexapro 5 mg daily DVT prophylaxis: SCDs/TEDs, ambulation Code Status: LEVEL I, FULL Dispo: Discharge uncertain at this time- PT/OT consulted (Lana Pierre, PA-C) I agree with PA assessment and plan and have seen and examined pt myself Resting comfortably in bed Bradycardic at this time Hold atenolol at this time Agree with holter monitor on DC Please obtain MRI head PT/OT consulted Will need ENT consultation on DC (Luiz Benton D.O.)
--- NOTE | 2017-02-22 13:11 | DIAGNOSTIC IMAGING REPORT ---
MRI OF THE BRAIN COMBO CLINICAL HISTORY: Fall with head injury. Dizziness. COMPARISON STUDY: CT of the brain dated 02/21/2017. TECHNIQUE: MRI of the brain was performed utilizing various T1 and T2-weighted sequences in the axial, sagittal, and coronal planes. Contrast-enhanced sequences were acquired following the administration of 6.8 cc of Gadavist. FINDINGS: Brain parenchyma: There are age-related involutional changes noting moderate patchy subcortical and periventricular microangiopathic disease. There is no hemorrhage or mass effect. There is no restricted diffusion to suggest acute ischemia. No enhancing mass lesion is identified on the postcontrast images. Maria-white matter differentiation is preserved. No extra-axial fluid collection is seen. The cerebellar tonsils are normal in configuration. Ventricles, sulci, and cisterns: Prominent secondary to involutional change. Pituitary and sella: Unremarkable. Intracranial vasculature: Normal flow voids are maintained at the skull base. Orbits: The bony orbits are grossly intact. Orbital contents are normal in appearance. Sinuses and mastoids: Clear. Calvarium: Unremarkable. Cervical cord: Partially visualized cervical spinal cord is normal in morphology and signal intensity. IMPRESSION: No acute intracranial abnormality. Electronically signed by: Remigio Carrasquillo M.D. 02/22/2017 1:10 PM Dictated Date/Time: 02/22/2017 1:06 PM
[2017-02-22] MEDS: DOCUSATE SODIUM/SENNA 50/8.6MG TAB PO SCH (13:18)
[2017-02-23 04:00] VITALS: BP 142/72; PULSE 51; TEMP 36.5; O2SAT 95
[2017-02-23] MEDS: LEVOTHYROXINE 100 MCG TAB PO SCH (05:48)
[2017-02-23] MEDS: INSULIN ASPART 100 UNITS/ML 3 ML PEN SC SCH ×2 (06:30→11:00)
[2017-02-23 07:35] VITALS: BP_SYST 162; BP_SYST 163; BP_DIAS 68; BP_DIAS 75; PULSE 54; TEMP 36.5; O2SAT 94
[2017-02-23] MEDS: AMLODIPINE BESYLATE 5 MG TAB PO SCH (07:48)
[2017-02-23] MEDS: ESCITALOPRAM OXALATE 10 MG TAB PO SCH (07:48)
[2017-02-23] MEDS: ASPIRIN 81 MG ECTAB PO SCH (07:48)
[2017-02-23] MEDS: LOSARTAN POTASSIUM 50 MG TAB PO SCH (07:49)
[2017-02-23] MEDS: DOCUSATE SODIUM/SENNA 50/8.6MG TAB PO SCH (07:49)
[2017-02-23] MEDS: MAGNESIUM OXIDE 400 MG TAB PO SCH (07:49)
[2017-02-23] MEDS ORDERED: AMLO-114 PO (11:01)
--- NOTE | 2017-02-23 11:12 | Discharge Instructions ---
Discharge Instructions Date of Service Feb 23, 2017. Admission Reason for Admission: Syncope, Vertigo Discharge Discharge Diagnosis / Problem: Vertigo, syncope Discharge Goals Goal(s): Decrease discomfort, Improve function, Increase independence, Improve disease control, Learn about illness, Diagnostic testing, Therapeutic intervention, Prevent Disease Progression Activity Recommendations Activity Limitations: per Instructions/Follow-up section Driving or Machine Use: DO NOT DRIVE . Instructions / Follow-Up Instructions / Follow-Up At this time, the cause of your syncope, vertigo/lightheadedness and dizziness is unknown: Cardiology has setup an event monitor to monitor your heart rate/rhythm over an extended period of time to try and determine the cause of your symptoms It is HIGHLY recommended you have 24-hour supervision to help prevent falls and future injuries NO DRIVING!! Continue to take prescribed Meclizine as needed for vertigo MEDICATION CHANGES: Norvasc 5 mg by mouth once daily was INCREASED to Norvasc 10 mg daily DISCONTINUE Atenolol Resume all other regular home medications as prescribed Please follow-up with your PCP within 5-7 days- a referral has been placed; if you do not hear of an appointment in the next 24 hours, please call the office to confirm appointment. Please follow-up with Cardiology, Dr. Milian in 1-2 months- a referral has been placed; if you do not hear of an appointment in the next 24 hours, please call the office to confirm appointment. Please follow-up with ENT in the next 1-2 weeks- a referral has been placed; if you do not hear of an appointment in the next 24 hours, please call the office to confirm appointment. Please follow-up/keep all of your subspecialty appointments Current Hospital Diet Patient's current hospital diet: Regular Diet Discharge Diet Recommended Diet: Regular Diet Pending Studies Studies pending at discharge: no Medical Emergencies . Who to Call and When: Medical Emergencies: If at any time you feel your situation is an emergency, please call 911 immediately. . Non-Emergent Contact Non-Emergency issues call your: Primary Care Provider Call Non-Emergent contact if: you have any medication questions . . "Provider Documentation" section prepared by Lana Pierre. . VTE Core Measure Inpt VTE Proph given/why not?: SCD's
[2017-02-23 11:18] VITALS: BP 134/73; PULSE 57; TEMP 36.6; O2SAT 95
[2017-02-23 11:20] VITALS: BP 134/73; PULSE 57; TEMP 36.6; O2SAT 95
--- NOTE | 2017-02-23 11:20 | Discharge Summary ---
Discharge Summary Date of Service Feb 23, 2017. Discharge Summary Admission Date: Feb 21, 2017 at 16:04 Discharge Date: Feb 23, 2017 Discharge Disposition: Home Principal Diagnosis: Syncope, vertigo Problems/Secondary Diagnoses: Syncope, vertigo Hypomagnesemia HTN Hypothyroidism T2DM Anxiety Procedures: CHEST ONE VIEW PORTABLE HISTORY: syncopal episode yest; dizzy today COMPARISON: Chest 01/15/2017. FINDINGS: The lungs are clear. Cardiac silhouette is normal in size. No pleural effusions. No pneumothorax. Cholecystectomy. IMPRESSION: No acute process. Electronically signed by: Sudhir Santillan M.D. 02/21/2017 1:15 PM Dictated Date/Time: 02/21/2017 1:15 PM The status of this report is Signed. Draft = Not yet reviewed or approved by Radiologist. Signed = Reviewed and approved by Radiologist HEAD WITHOUT CONTRAST (CT) CLINICAL HISTORY: 72 years-old Female presenting with HEAD INJURY, dizziness. TECHNIQUE: Multidetector CT imaging of the head was performed without the use of intravenous contrast. IV contrast: None. A dose lowering technique was used consistent with the principles of ALARA (as low as reasonably achievable). COMPARISON: 05/22/2016. CT DOSE (mGy.cm): The estimated cumulative dose is 537.48 mGy.cm. FINDINGS: Fer[employer] Cellars Receiver topogram: Unremarkable. Proportional ventricular and sulcal prominence except at the vertex where there is mild sulcal effacement and gyral crowding. The callosal angle is not significantly decreased. These findings are unchanged from prior exam. Brain parenchyma normal in appearance with preserved maria-white differentiation. No mass effect or midline shift. No hemorrhage or acute territorial infarct. No extra-axial fluid collection. Paranasal sinuses and mastoid air cells clear. Calvarium intact. IMPRESSION: 1. No acute intracranial pathology. 2. Findings equivocal for normal pressure hydrocephalus. Electronically signed by: Walter Lopez M.D. 02/21/2017 1:34 PM Dictated Date/Time: 02/21/2017 1:28 PM The status of this report is Signed. Draft = Not yet reviewed or approved by Radiologist. Signed = Reviewed and approved by Radiologist. MRI OF THE BRAIN COMBO CLINICAL HISTORY: Fall with head injury. Dizziness. COMPARISON STUDY: CT of the brain dated 02/21/2017. TECHNIQUE: MRI of the brain was performed utilizing various T1 and T2-weighted sequences in the axial, sagittal, and coronal planes. Contrast-enhanced sequences were acquired following the administration of 6.8 cc of Gadavist. FINDINGS: Brain parenchyma: There are age-related involutional changes noting moderate patchy subcortical and periventricular microangiopathic disease. There is no hemorrhage or mass effect. There is no restricted diffusion to suggest acute ischemia. No enhancing mass lesion is identified on the postcontrast images. Maria-white matter differentiation is preserved. No extra-axial fluid collection is seen. The cerebellar tonsils are normal in configuration. Ventricles, sulci, and cisterns: Prominent secondary to involutional change. Pituitary and sella: Unremarkable. Intracranial vasculature: Normal flow voids are maintained at the skull base. Orbits: The bony orbits are grossly intact. Orbital contents are normal in appearance. Sinuses and mastoids: Clear. Calvarium: Unremarkable. Cervical cord: Partially visualized cervical spinal cord is normal in morphology and signal intensity. IMPRESSION: No acute intracranial abnormality. Electronically signed by: Remigio Carrasquillo M.D. 02/22/2017 1:10 PM Dictated Date/Time: 02/22/2017 1:06 PM The status of this report is Signed. Draft = Not yet reviewed or approved by Radiologist. Signed = Reviewed and approved by Radiologist. Consultations: cardiology Medication Reconciliation Changed Medications: Amlodipine (Norvasc) 10 Mg Tab 10 MG PO DAILY for 30 Days, #30 TAB (Changed from: Amlodipine (Norvasc) 5 Mg Tab 5 Mg PO DAILY) Continued Medications: Aspirin (Aspirin Chewable) 81 Mg Chew 81 MG PO DAILY, TAB Calcium Carbonate-Vitamin D (Calcium) 1 Tab Tab 1 TAB PO DAILY 1000 MG / 400 U Cholecalciferol (Vitamin D-3) 1,000 Unit Cap 1000 UNIT PO DAILY Chromium Picolinate (Chromium Picolinate) 200 Mcg Tab 200 MCG PO DAILY Cinnamon (Cinnamon) 500 Mg Cap 1 CAP PO DAILY Cranberry (Vaccinium Macrocarp (Cranberry) 250 Mg Cap 250 MG PO DAILY Escitalopram Oxalate (Lexapro) 5 Mg Tab 5 MG PO DAILY, TAB Folic Acid (Folic Acid) Unknown Strength Tab 1 TAB PO DAILY Levothyroxine Sodium (Levothyroxine Sodium) 100 Mcg Tab 100 MCG PO DAILY, 3 Refills Loratadine (Claritin) 10 Mg Tab 10 MG PO DAILY Lorazepam (Ativan) 0.5 Mg Tab 0.25 MG PO DAILY PRN for Anxiety, TAB Losartan Potassium (Cozaar) 50 Mg Tab 50 MG PO AMPM Magnesium (Magnesium) 250 Mg Tab 250 MG PO DAILY Metformin Hcl (Glucophage) 500 Mg Tab 500 MG PO BID Multivitamin (Multivitamin) Tab 1 TAB PO DAILY, TAB Ondansetron Hcl (Zofran) 8 Mg Tab 8 MG PO UD PRN for Nausea, TAB Sennosides-Docusate Sodium (Stool Softener) 1 Tab Tab 1 TAB PO DAILY Discontinued Medications: Atenolol (Tenormin) 25 Mg Tab 25 MG PO DAILY, TAB Discharge Exam Review of Systems: Constitutional: No fever, No chills, No sweats, No weakness, No fatigue ENT: No hearing loss Respiratory: No cough, No shortness of breath, No hemoptysis Cardiovascular: No chest pain, No palpitations Abdomen: No pain, No nausea, No vomiting, No diarrhea, No constipation Musculoskeletal: No joint pain, No muscle pain, No swelling, No calf pain Genitourinary - Female: No dysuria Neurologic: No memory loss, No weakness, No numbness/tingling Psychiatric: No depression symptoms, No anxiety Hematologic / Lymphatic: No abnormal bleeding/bruising Integumentary: No rash, No itch, No new/changing skin lesions Physical Exam: General Appearance: no apparent distress Eyes: normal inspection, PERRL ENT: hearing grossly normal Neck: supple Respiratory/Chest: lungs clear, no respiratory distress, no accessory muscle use Cardiovascular: regular rate, rhythm Abdomen / GI: normal bowel sounds, non tender, soft Extremities: no calf tenderness, no pedal edema Neurologic/Psychiatric: alert, normal mood/affect, oriented x 3 Skin: normal color, warm/dry, no rash Hospital Course Admission H&P: 72 y/o F Hx HTN, HPL, DM, hypothyroidism. Presents with persistent vertigo which follows a syncopal episode and head trauma one day prior. The previous AM , the pt had walked into her kitchen and next remembers waking up on her back. She describes pain and a lump on the back of her head in addition to pain and bruising of her L shoulder. When she woke up this AM, she noted increasing dizziness, loss of balance and nausea. She denies a current RUIZ, fevers, visual changes or unilateral weakness. She denies CP, SOB or palpitations which she can recall. The pt states that she has had a total of 4 syncopal episodes since April. She had undergone cardiology evaluation a few moths prior which included a Halter monitor. No diagnosis was elucidated. While in the ER she had a 3 beat run of VT which did not coincide with additional symptoms. Physical Exam Vital Signs Date Time Temp Pulse Resp B/P (MAP) Pulse Ox O2 Delivery O2 Flow Rate FiO2 02/21/17 16:30 60 18 153/78 94 Room Air 02/21/17 16:00 60 20 149/71 94 Room Air 02/21/17 15:30 59 17 150/71 94 Room Air 02/21/17 15:28 96 Room Air 02/21/17 15:00 56 17 163/69 96 Room Air 02/21/17 14:36 62 19 153/70 94 Room Air 02/21/17 14:00 64 18 135/67 93 Room Air 02/21/17 13:35 68 19 137/73 93 Room Air 02/21/17 13:15 76 02/21/17 13:05 64 22 169/108 94 Room Air 02/21/17 12:05 70 157/95 83 159/85 02/21/17 12:05 70 20 157/95 95 Room Air 83 159/85 02/21/17 11:30 61 20 161/87 94 Room Air 02/21/17 11:05 72 02/21/17 10:53 36.7 65 21 204/95 98 Room Air General Appearance: WD/WN, no apparent distress Head: normocephalic Eyes: normal inspection ENT: normal ENT inspection, pharynx normal Neck: supple, no JVD Respiratory/Chest: chest non-tender, lungs clear, normal breath sounds Cardiovascular: regular rate, rhythm, no edema, no gallop Abdomen/GI: normal bowel sounds, non tender, soft Back: normal inspection, no CVA tenderness Extremities/Musculoskelatal: normal inspection, no calf tenderness, normal capillary refill, no pedal edema, normal range of motion 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 tested, no motor/sensory deficits, alert, normal mood/affect, normal reflexes, oriented x 3 Skin: normal color, warm/dry, no rash Hospital Course: Syncope, vertigo: - Admit to tele for cardiac monitoring- no acute events - Cardiac enzymes- negative - EKG- unremarkable - Meclizine 12.5 mg q8 hrs PRN vertigo - PT/OT consultation- recommend 24 hour supervision - Check orthostatic BPs/pulse - Head CT- no acute intracranial pathology, NPH - MRI brain combo- unremarkable - If cardiac workup unremarkable- consider neurology f/u - Recommend ENT outpatient f/u - Consult cardiology, appreciate recommendations -- Set-up 30-day event monitor -- Wishes to follow w/ [facility]- f/u w/ Dr. Milian in 1-2 months -- Should NOT drive Hypomagnesemia at 1.5- RESOLVED: Mag-Ox 400 mg daily, follow mag level HTN: - Continue Norvasc 5 mg daily, Losartan 50 mg daily -- Norvasc increased to 10 mg daily at discharge - Hold Atenolol 25 mg daily due to syncope/bradycardia- discontinued at discharge Hypothyroidism- TSH 0.529: Continue Synthroid 100 mcg daily T2DM: - Metformin 500 mg BID held while inpatient- resume at discharge - BSG ACHS and sliding insulin scale Anxiety: Lexapro 5 mg daily DVT prophylaxis: SCDs/TEDs, ambulation Code Status: LEVEL I, FULL Dispo: Discharge to home w/ 24-hour supervision Total Time Spent: Greater than 30 minutes This includes examination of the patient, discharge planning, medication reconciliation, and communication with other providers. Discharge Instructions Please refer to the electronic Patient Visit Report (Discharge Instructions) for additional information. Follow-Up Please follow-up with your PCP within 5-7 days Please follow-up with Cardiology in 1-2 months Follow-up with ENT within the next 1-2 weeks Please follow-up/keep all of your subspecialty appointments Additional Copies To Candis Lee DO
== END 2017-02-23 12:02 | disposition home or self-care (01) ==
LOC: EDBD 10:52 → C.EDC 10:53 → C.MED 16:04 → ENRESERV 16:11
PROVIDERS: ADMIT Internal Medicine; ATTEND Hospitalist
DX: R55 Syncope and collapse (principal); R42 Dizziness and giddiness; E83.42 Hypomagnesemia; I10 Essential (primary) hypertension; E03.9 Hypothyroidism, unspecified; E11.9 Type 2 diabetes mellitus without complications; F41.9 Anxiety disorder, unspecified; Z79.82 Long term (current) use of aspirin; Z79.4 Long term (current) use of insulin; Z79.899 Other long term (current) drug therapy; Z88.1 Allergy status to other antibiotic agents; Z88.5 Allergy status to narcotic agent; Z90.49 Acquired absence of other specified parts of digestive tract; Z90.89 Acquired absence of other organs; Z96.641 Presence of right artificial hip joint; Z82.49 Family history of ischemic heart disease and other diseases of the circulatory system

== ENCOUNTER → 2017-08-14 | Outpatient (CLI) | payer OTHER ==
[~2017-08-14] MED LIST changes: -AMLO-110 PO; -ATEN25TA PO; +CRAN1CAP6 PO; -LORA10TA5 PO; +LORA10TA6 PO; -MAGN1CAP2 PO; +MAGN250T9 PO; -MECL-91 PO; +MULT-506 PO; -MULTTAB PO; +ONDA-170 PO
[2017-08-14 14:19] LABS: HEMOGLOBIN A1C 6.5 % (4.5-5.6)
[2017-08-14 14:40] LABS: ALBUMIN 3.6 gm/dl (3.4-5.0); ALT/SGPT 23 U/L (12-78); AST/SGOT 34 U/L (15-37); BLOOD UREA NITROGEN 13 mg/dl (7-18); CALCIUM 9.7 mg/dl (8.5-10.1); CARBON DIOXIDE 23 mmol/L (21-32); CREATININE 0.93 mg/dl (0.60-1.20); GLUCOSE 142 mg/dl (70-99); POTASSIUM 3.9 mmol/L (3.5-5.1); SODIUM 138 mmol/L (136-145)
[2017-08-14 14:51] LABS: ALKALINE PHOSPHATASE 81 U/L (45-117); CHOLESTEROL 161 mg/dl (0-200); LDL CHOLESTEROL CALCULATED 83 mg/dl; TOTAL PROTEIN 7.9 gm/dl (6.4-8.2)
--- NOTE | 2017-08-25 06:44 | CODING QUERY MEDICAL NECESSITY ---
CQSUPPORTING DIAGNOSIS NEEDED A supporting diagnosis is required for the test/procedure performed on this patient in order for us to be reimbursed by the patient's insurance. Please provide a supporting diagnosis for the following test/procedure listed below next to the test name along with your signature. *If there is no additional diagnosis for this patient that would support the following test/procedure please document that below next to the test/procedure. Test(s)/Procedure(s) that require a supporting diagnosis: DOS 08/14/17 GLYCATED HEMOGLOBIN TEST Provider Signature: Date: Thank you Evelyn Tejeda Health Information Management Once completed, please kindly fax back to [phone] For questions please call [phone]
== END | disposition home or self-care (01) ==
LOC: C.LABPBG 08:08
PROVIDERS: ATTEND Family Medicine
DX: I10 Essential (primary) hypertension (principal); R42 Dizziness and giddiness; R26.9 Unspecified abnormalities of gait and mobility; R41.3 Other amnesia

== ENCOUNTER → 2017-09-25 | Outpatient (CLI) | payer OTHER | END | disposition home or self-care (01) | LOC: C.LABPBG 07:49 | PROVIDERS: ATTEND Family Medicine | DX: E03.9 Hypothyroidism, unspecified (principal) ==

== ENCOUNTER 2022-03-23 13:02 | Observation (INO) ==
[2022-03-23 13:55] LABS: Basophils # (auto) 0.06 K/uL (0-0.2); Basophils % (auto) 0.6 %; Eosinophils % (auto) 1.9 %; Hematocrit (blood only) 29.7 % (34.1-44.9); Hemoglobin 9.5 g/dl (12.0-16.0); Immature Granulocytes # (auto) 0.03 K/uL (0.00-0.02); Immature Granulocytes % (auto) 0.3 %; Lymphocytes # (auto) 2.14 K/uL (1.2-3.4); Lymphocytes % (auto) 20.3 %; Mean Corpuscular Hemoglobin 28.5 pg (25.0-34.0); Mean Corpuscular Volume 89.2 fL (80.0-100.0); Mean Platelet Volume 10.4 fL (9.4-12.3); Monocytes # (auto) 0.78 K/uL (0.24-0.82); Monocytes % (auto) 7.4 %; Neutrophils # (auto) 7.34 K/uL (1.4-6.5); Neutrophils % (auto) 69.5 %; Platelet Count 328 K/uL (130-400); RDW Coefficient of Variation 15.3 % (11.5-14.5); RDW Standard Deviation 46.7 fL (36.4-46.3); Red Blood Count 3.33 M/uL (3.93-5.22); White Blood Count 10.55 K/ul (4.8-10.8)
[2022-03-23 14:05] LABS: INR 1.3 (0.9-1.1); Partial Thromboplastin Ratio 0.8; Partial Thromboplastin Time 23.3 Seconds (21.0-31.0); Prothrombin Time 13.7 Seconds (9.0-12.0)
--- NOTE | 2022-03-23 14:14 | Electrocardiogram Report ---
Test Reason : Blood Pressure : / mmHG Vent. Rate : 070 BPM Atrial Rate : 070 BPM P-R Int : 198 ms QRS Dur : 072 ms QT Int : 446 ms P-R-T Axes : 007 -18 047 degrees QTc Int : 481 ms Poor data quality, interpretation may be adversely affected Sinus rhythm with sinus arrhythmia with frequent Premature ventricular complexes Low voltage QRS Abnormal ECG When compared with ECG of 17-MAR-2022 12:23, Nonspecific T wave abnormality now evident in Lateral leads Confirmed by David Sr ([id number]) on 03/23/2022 2:14:16 PM Referred By: Confirmed By:Jeronimo Sr
[2022-03-23 14:19] LABS: Troponin I High Sensitivity 10.5 pg/ml (0-14)
[2022-03-23 14:23] LABS: Alanine Aminotransferase 7 U/L (7-52); Alkaline Phosphatase 67 U/L (34-104); Anion Gap 6 (3-11); Aspartate Aminotransferase 21 U/L (13-39); BUN Creatinine Ratio 4.5 (10-20); Bilirubin,Total 0.8 mg/dl (0.2-1.0); Blood Urea Nitrogen 5 mg/dl (6-23); Carbon Dioxide 22 mmol/L (21-32); Chloride 108 mmol/L (98-107); Est GFR (African American) 55.3 ml/min; Est GFR (Non-African American) 47.7 ml/min; Globulin 2.9 gm/dl (2.5-4.0); Glucose 134 mg/dl (70-99(Fasting)); Potassium 3.9 mmol/L (3.5-5.1); Sodium 136 mmol/L (136-145); Total Protein 5.9 gm/dl (6.0-8.3)
--- NOTE | 2022-03-23 15:24 | Emergency Department Note ---
Impression & Plan Acute upper gastrointestinal bleeding, Acute alteration in mental status, Edema, peripheral, Anemia ED Provider Note NAME: ESTEPHANIE LYNN AGE: 77 SEX: F : 1945 ARRIVES VIA: Walk-In INFORMANT: Patient, the patient's significant other ED PROVIDER(S): Kwame Pelayo DO CHIEF COMPLAINT: Weight gain HPI: The patient is a 77-year-old female who presented to the emergency department for an evaluation of edema. The patient was recently admitted to our facility for upper GI bleeding. She did have an upper endoscopy and no definite source for bleeding could be found. She presented with black stool. She continues to have black stool. She was discharged from our facility only recently. The patient presents back to the emergency department today at the request of her primary care physician. She started having edema noted and weight gain. Her significant other called her family doctor and they were advised to come the emergency department for further evaluation. The patient did have an episode of vomiting. She has had no hematemesis. The patient denies having any chest pain or difficulty breathing. She denies having any dysuria or frequency. She is been compliant with her outpatient medications otherwise. ROS: See above HPI for pertinent positives & negatives. A total of 10 systems reviewed and were otherwise negative. PAST MEDICAL HISTORY: See Below PAST SURGICAL HISTORY: See Below FAMILY HISTORY: See Below SOCIAL HISTORY: See Below HOME MEDICATIONS: See Below ALLERGIES: See Below VITALS: See Below PHYSICAL EXAMINATION: GENERAL: Patient is awake alert in no acute distress patient is resting comfortably and showing no signs of anxiety EYES: The conjunctivae are clear. The pupils are round and reactive. EARS, NOSE, MOUTH AND THROAT: The nose is without any evidence of any deformity. Mucous membranes are moist. Tongue is midline. NECK: The neck is nontender and supple. RESPIRATORY: Normal respiratory effort is noted there is no evidence of wheezing rhonchi or rales CARDIOVASCULAR: Regular rate and rhythm noted there no murmurs rubs or gallops normal S1 normal S2. GASTROINTESTINAL: The abdomen is soft. Abdomen is nontender. MUSCULOSKELETAL/EXTREMITIES: There is no evidence of gross deformity full range of motion is noted in the hips and shoulders. SKIN: Skin is warm and dry. Pedal edema was noted bilaterally. NEUROLOGIC: Patient is awake alert and oriented to person place and situation. MEDICAL DECISION MAKING: The patient is a 77-year-old female who presented to the emergency department for ongoing upper GI bleeding. The patient was admitted to our facility recently for similar complaints. She had an upper endoscopy which only showed gastritis. She was also noted to have ascites on a recent CAT scan. This would be a new finding for her. It is unclear the cause of the ascites. The patient may have some underlying cirrhosis. I discussed the patient's laboratory and radiographic studies with her. I also discussed her case with the on-call fire chief's aide as well as the on-call [facility] hospitalist. The patient may require further inpatient management to further evaluate the cause of her symptoms. They have agreed to evaluate the patient in the emergency department for further management and disposition. Triage Nursing notes reviewed. Prior medical records reviewed Vital Signs: reviewed and remarkable for no significant abnormalities Differential diagnosis: Diverticulosis, AVM, coagulopathy, colitis, inflammatory bowel disease, malignancy, Pretty-Childers tear, esophagitis, peptic ulcer disease, variceal bleed, gastritis, epistaxis, fissure, hemorrhoids, as well as other pathologies. ER treatment provided: See below Diagnostics interpreted by me: ECG: EKG was obtained in the emergency department. My interpretation is sinus rhythm at 70 bpm. PVCs were noted. Low voltage was noted throughout. There was no acute ST segment abnormalities noted. This was compared to a tracing from March 17, 2022. No changes were noted. Cardiac Monitoring: An order was placed for continuous cardiac monitoring. The monitor shows a rate of 78 bpm with sinus rhythm. Laboratory studies: As stated above and show below. Imaging studies: See below Consultation(s): I discussed this case with Dr. Hogue I discussed this case with Dr. Moya. 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) Family History Father Hypertension Myocardial infarction Diabetes Coronary heart disease Sister Coronary heart disease Mother Diabetes Myocardial infarction Coronary heart disease Hypertension Social History Smoking Status: Never smoker Second Hand Exposure: No; Hx Alcohol Use: No Hx Substance Use: No Preferred Language: Estonian Communication Ability: Effective Visual Impairment: Limited Hearing Ability: Normal Welder Required: No Beliefs That Will Affect Care: Mu-Ism Mu-Ism Beliefs: Jehova's Witness, NO BLOOD PRODUCTS marital status: Current Living Situation: Spouse current occupational status: retired Feels Safe at Home: Yes Childhood Exposure to Second-Hand Smoke: No Diet Comment: regular caffeine: No during the past year weight has: remained stable Dental Care, Regularly: Yes Physical Activity Frequency: 1-2 Times per Week Seatbelt Use: always Sunscreen Use: Yes Assistive Devices: None Allergies Allergies Allergy/AdvReac Type Severity Reaction Status Date / Time bee venom protein (honey bee) Allergy Severe SWELLS UP Verified 03/23/22 16:28 cefazolin Allergy Severe SHORTNESS Verified 03/23/22 16:28 OF BREATH adhesive Allergy Intermediate HIVES WITH Verified 03/23/22 16:28 TAPE azithromycin Allergy Unknown Unknown Verified 03/23/22 16:28 candesartan AdvReac Intermediate cough Verified 03/23/22 16:28 enalapril AdvReac Intermediate cough Verified 03/23/22 16:28 lisinopril AdvReac Intermediate COUGH Verified 03/23/22 16:28 morphine AdvReac Intermediate ABNORMAL Verified 03/23/22 16:28 DREAMS/PASSED OUT nitroglycerin AdvReac Intermediate GI SYMPTOMS Verified 03/23/22 16:28 Home Meds Home Medications Medication Instructions Recorded Confirmed multivitamin 1 tab PO QAM 12/17/18 03/23/22 cholecalciferol (vitamin D3) 25 1,000 units PO QAM 04/04/19 03/23/22 mcg (1,000 unit) capsule Previous Rx's Medication Instructions Recorded lancets #50 ea 12/17/18 blood sugar diagnostic #100 ea 05/31/19 albuterol sulfate 90 mcg/actuation 2 inh inhalation Q6H cough #1 ea 01/02/20 breath activated powder inhaler,sensor (Proair Digihaler) blood [facility] diagnostic [facility] 06/16/21 Verio test strips) donepezil 5 mg tablet 5 mg PO DAILY #90 tabs 08/20/21 loratadine 10 mg tablet 10 mg PO QAM #90 tabs 11/01/21 atorvastatin 10 mg tablet 10 mg PO DAILY #90 tabs 12/10/21 losartan 50 mg tablet 50 mg PO BID #180 tabs 12/28/21 amlodipine 10 mg tablet 10 mg PO DAILY #90 tabs 03/03/22 escitalopram oxalate 20 mg tablet 20 mg PO QAM #90 tabs 03/03/22 metformin 500 mg tablet 500 mg PO DAILY #90 tabs 03/03/22 Synthroid 75 mcg tablet See Rx Instructions .Route 03/04/22 (levothyroxine) .COMPLEX #90 tabs ciprofloxacin HCl 500 mg tablet 500 mg PO Q12H #20 tabs 03/12/22 (Cipro) lancets 33 gauge ([facility] #100 ea 03/14/22 Lancets) omeprazole 40 mg capsule,delayed 40 mg PO BID #60 caps 03/22/22 release sucralfate 1 gram tablet 1 g PO BID 8 weeks #112 tabs 03/22/22 Results & Data (ED) Vital Signs Vital Signs - 24 hr 03/23/22 13:07 03/23/22 15:25 03/23/22 15:30 Temperature 36.8 C Temperature Source Temporal Artery Scan Pulse Rate 62 74 78 Pulse Rate from SpO2 Sensor 66 75 Pulse Rhythm Regular Pulse Strength Normal Respiratory Rate 18 18 19 Respiratory Effort / Characteristics Non-Labored Spontaneous Respiratory Depth Normal Respiratory Pattern Regular Blood Pressure 102/56 L 131/62 Blood Pressure Mean 71 85 Blood Pressure Position Sitting Pulse Oximetry 97 97 95 Oxygen Delivery Method Room Air Sepsis Recent Fever Within 48 Hours No Sepsis New/Unexplained Change in Mental Status N/A Sepsis Action Taken by Nursing No Action Required 03/23/22 19:16 Temperature Temperature Source Pulse Rate Pulse Rate from SpO2 Sensor Pulse Rhythm Pulse Strength Respiratory Rate Respiratory Effort / Characteristics Respiratory Depth Respiratory Pattern Blood Pressure Blood Pressure Mean Blood Pressure Position Pulse Oximetry 98 Oxygen Delivery Method Room Air Sepsis Recent Fever Within 48 Hours Sepsis New/Unexplained Change in Mental Status Sepsis Action Taken by Usp Medications Current Medication List: was personally reviewed by me Laboratory Data Attestation: I reviewed the patient's lab results. Result diagrams: 03/23/22 13:33 03/23/22 13:33 Lab Results 03/23/22 03/23/22 03/23/22 Range/Units 13:33 13:33 13:33 WBC 10.55 (4.8-10.8) K/ul RBC 3.33 L (3.93-5.22) M/uL Hgb 9.5 L (12.0-16.0) g/dl Hct 29.7 L (34.1-44.9) % MCV 89.2 (80.0-100.0) fL MCH 28.5 (25.0-34.0) pg MCHC 32.0 (32.0-36.0) g/dL RDW Std Deviation 46.7 H (36.4-46.3) fL RDW Coeff of [place] 15.3 H (11.5-14.5) % Plt Count 328 D (130-400) K/uL MPV 10.4 (9.4-12.3) fL Immature Gran % (Auto) 0.3 % Neut % (Auto) 69.5 % Lymph % (Auto) 20.3 % [place] % (Auto) 7.4 % Eos % (Auto) 1.9 % Baso % (Auto) 0.6 % Neut # (Auto) 7.34 H (1.4-6.5) K/uL Lymph # (Auto) 2.14 (1.2-3.4) K/uL [place] # (Auto) 0.78 (0.24-0.82) K/uL Eos # (Auto) 0.20 (0-0.50) K/uL Baso # (Auto) 0.06 (0-0.2) K/uL Immature Gran # (Auto) 0.03 H (0.00-0.02) K/uL PT 13.7 H (9.0-12.0) Seconds INR 1.3 H (0.9-1.1) APTT 23.3 (21.0-31.0) Seconds PTT Ratio 0.8 Sodium 136 (136-145) mmol/L Potassium 3.9 (3.5-5.1) mmol/L Chloride 108 H (98-107) mmol/L Carbon Dioxide 22 (21-32) mmol/L Anion Gap 6 (3-11) BUN 5 L (6-23) mg/dl Creatinine 1.10 (0.6-1.2) mg/dl Est Cr Clr Drug Dosing Not Reportable Est GFR ( Amer) 55.3 ml/min Est GFR (Non-Af Amer) 47.7 ml/min BUN/Creatinine Ratio 4.5 L (10-20) Glucose 134 H (70-99(Fasting)) mg/dl Calcium 8.0 L (8.5-10.1) mg/dl Magnesium (1.7-2.4) mg/dl Total Bilirubin 0.8 (0.2-1.0) mg/dl Direct Bilirubin (0-0.2) mg/dl AST 21 (13-39) U/L ALT 7 (7-52) U/L Alkaline Phosphatase 67 (34-104) U/L Ammonia (18-72) umol/L Troponin I High Sens 10.5 (0-14) pg/ml B-Natriuretic Peptide (0-100) pg/ml Total Protein 5.9 L (6.0-8.3) gm/dl Albumin 3.0 L (3.4-5.0) gm/dl Globulin 2.9 (2.5-4.0) gm/dl Albumin/Globulin Ratio 1.0 (0.9-2) SARS-CoV-2, RNA, NAAT (NEGATIVE) 03/23/22 03/23/22 03/23/22 Range/Units 13:33 16:18 16:18 WBC (4.8-10.8) K/ul RBC (3.93-5.22) M/uL Hgb (12.0-16.0) g/dl Hct (34.1-44.9) % MCV (80.0-100.0) fL MCH (25.0-34.0) pg MCHC (32.0-36.0) g/dL RDW Std Deviation (36.4-46.3) fL RDW Coeff of [place] (11.5-14.5) % Plt Count (130-400) K/uL MPV (9.4-12.3) fL Immature Gran % (Auto) % Neut % (Auto) % Lymph % (Auto) % [place] % (Auto) % Eos % (Auto) % Baso % (Auto) % Neut # (Auto) (1.4-6.5) K/uL Lymph # (Auto) (1.2-3.4) K/uL [place] # (Auto) (0.24-0.82) K/uL Eos # (Auto) (0-0.50) K/uL Baso # (Auto) (0-0.2) K/uL Immature Gran # (Auto) (0.00-0.02) K/uL PT (9.0-12.0) Seconds INR (0.9-1.1) APTT (21.0-31.0) Seconds PTT Ratio Sodium (136-145) mmol/L Potassium (3.5-5.1) mmol/L Chloride (98-107) mmol/L Carbon Dioxide (21-32) mmol/L Anion Gap (3-11) BUN (6-23) mg/dl Creatinine (0.6-1.2) mg/dl Est Cr Clr Drug Dosing Est GFR ( Amer) ml/min Est GFR (Non-Af Amer) ml/min BUN/Creatinine Ratio (10-20) Glucose (70-99(Fasting)) mg/dl Calcium (8.5-10.1) mg/dl Magnesium 1.8 (1.7-2.4) mg/dl Total Bilirubin (0.2-1.0) mg/dl Direct Bilirubin 0.2 (0-0.2) mg/dl AST (13-39) U/L ALT (7-52) U/L Alkaline Phosphatase (34-104) U/L Ammonia (18-72) umol/L Troponin I High Sens (0-14) pg/ml B-Natriuretic Peptide 438 H (0-100) pg/ml Total Protein (6.0-8.3) gm/dl Albumin (3.4-5.0) gm/dl Globulin (2.5-4.0) gm/dl Albumin/Globulin Ratio (0.9-2) SARS-CoV-2, RNA, NAAT (NEGATIVE) 03/23/22 03/23/22 Range/Units 18:42 18:47 WBC (4.8-10.8) K/ul RBC (3.93-5.22) M/uL Hgb (12.0-16.0) g/dl Hct (34.1-44.9) % MCV (80.0-100.0) fL MCH (25.0-34.0) pg MCHC (32.0-36.0) g/dL RDW Std Deviation (36.4-46.3) fL RDW Coeff of [place] (11.5-14.5) % Plt Count (130-400) K/uL MPV (9.4-12.3) fL Immature Gran % (Auto) % Neut % (Auto) % Lymph % (Auto) % [place] % (Auto) % Eos % (Auto) % Baso % (Auto) % Neut # (Auto) (1.4-6.5) K/uL Lymph # (Auto) (1.2-3.4) K/uL [place] # (Auto) (0.24-0.82) K/uL Eos # (Auto) (0-0.50) K/uL Baso # (Auto) (0-0.2) K/uL Immature Gran # (Auto) (0.00-0.02) K/uL PT (9.0-12.0) Seconds INR (0.9-1.1) APTT (21.0-31.0) Seconds PTT Ratio Sodium (136-145) mmol/L Potassium (3.5-5.1) mmol/L Chloride (98-107) mmol/L Carbon Dioxide (21-32) mmol/L Anion Gap (3-11) BUN (6-23) mg/dl Creatinine (0.6-1.2) mg/dl Est Cr Clr Drug Dosing Est GFR ( Amer) ml/min Est GFR (Non-Af Amer) ml/min BUN/Creatinine Ratio (10-20) Glucose (70-99(Fasting)) mg/dl Calcium (8.5-10.1) mg/dl Magnesium (1.7-2.4) mg/dl Total Bilirubin (0.2-1.0) mg/dl Direct Bilirubin (0-0.2) mg/dl AST (13-39) U/L ALT (7-52) U/L Alkaline Phosphatase (34-104) U/L Ammonia 29.0 (18-72) umol/L Troponin I High Sens (0-14) pg/ml B-Natriuretic Peptide (0-100) pg/ml Total Protein (6.0-8.3) gm/dl Albumin (3.4-5.0) gm/dl Globulin (2.5-4.0) gm/dl Albumin/Globulin Ratio (0.9-2) SARS-CoV-2, RNA, NAAT NEGATIVE (NEGATIVE) Administered Medications Discontinued Medications Pantoprazole Sodium 40 mg/ (Syringe) 10 mls @ 5 mls/min IV NOW ONE Stop: 03/23/22 17:52 Last Admin: 03/23/22 18:54 Dose: 5 mls/min Documented By: [id number] Ceftriaxone Sodium (Rocephin) 2,000 mg in 70 mls @ 140 mls/hr IV NOW STA Stop: 03/23/22 18:20 Last Infusion: 03/23/22 19:00 Dose: 0 mls/hr Documented By: [id number] Admin: 03/23/22 18:25 Dose: 140 mls/hr Documented By: [id number] Imaging Data Radiologist's Impression: Chest X-Ray 03/23/22 14:42 XR chest 1V portable CLINICAL HISTORY: Swelling. Fluid retention. COMPARISON STUDY: Chest radiograph March 17, 2022. FINDINGS: Loop recorder is incidentally noted. Mild elevation of the right hemidiaphragm is unchanged. Minimal left basilar opacity favors atelectasis. There is no pneumothorax or pleural effusion. Cardiac size is normal. Mediastinal contours are normal. There is no evidence for pulmonary edema. IMPRESSION: No acute cardiopulmonary findings. ACT 112: Negative or not required by law. Electronically signed by: Keith Scruggs M.D. 03/23/2022 3:23 PM Discharge Plan Visit Data Chief Complaint: Swelling/Edema to Extremity Stated Complaint: LEGS/ABD FILLING WITH FLUID, SWELLING TO EXTREMITY ED Provider: Kwame Pelayo Discharge Problem: Acute upper gastrointestinal bleeding, Acute alteration in mental status, Ed falguni, peripheral, Anemia Patient Disposition: Being Evaluated by Hospitalist Forms Stand Alone Forms: My [facility] [place] Prescriptions Prescriptions: No Action multivitamin tablet 1 tab PO QAM (DME) lancets misc See Dose Instructions .ROUTE .MEDSUPPLY Qty: 50 0RF Dose Instruction: As directed Rx Instructions: As directed 33G (DME) blood sugar diagnostic Strip See Dose Instructions .ROUTE .MEDSUPPLY Qty: 100 1RF Dose Instruction: As directed Rx Instructions: Testing 2 times daily (DME) OneTouch Verio test strips Strip See Rx Instructions .ROUTE .MEDSUPPLY Qty: 50 11RF Rx Instructions: Testing blood sugar twice daily donepezil 5 mg tablet 5 mg PO DAILY Qty: 90 1RF loratadine 10 mg tablet 10 mg PO QAM Qty: 90 3RF atorvastatin 10 mg tablet 10 mg PO DAILY Qty: 90 3RF losartan 50 mg tablet 50 mg PO BID Qty: 180 1RF levothyroxine [Synthroid] 75 mcg tablet See Rx Instructions .ROUTE .COMPLEX Qty: 90 1RF Rx Instructions: Take 1 tab PO daily, 5 days per week; (DME) lancets [OneTouch Delica Lancets] 33 gauge misc See Rx Instructions .ROUTE .MEDSUPPLY Qty: 100 3RF Rx Instructions: Testing blood sugar twice daily amlodipine 10 mg tablet 10 mg PO DAILY Qty: 90 1RF metformin 500 mg tablet 500 mg PO DAILY Qty: 90 3RF escitalopram oxalate 20 mg tablet 20 mg PO QAM Qty: 90 3RF Proair Digihaler 90 mcg/actuation aero powdr breath act w/sensor 2 inh inhalation Q6H Qty: 1 3RF cholecalciferol (vitamin D3) 1,000 unit capsule 1,000 units PO QAM ciprofloxacin HCl [Cipro] 500 mg tablet 500 mg PO Q12H Qty: 20 0RF Rx Instructions: STARTED 03/12/22 FOR 10 DAYS, UNSURE IF STILL TAKING. omeprazole 40 mg capsule,delayed release(DR/EC) 40 mg PO BID Qty: 60 0RF sucralfate 1 gram tablet 1 g PO BID 56 Days Qty: 112 0RF Referrals Referrals: Candis Lee, [Primary Care Provider] -
--- NOTE | 2022-03-23 15:25 | XRay Report ---
XR chest 1V portable CLINICAL HISTORY: Swelling. Fluid retention. COMPARISON STUDY: Chest radiograph March 17, 2022. FINDINGS: Loop recorder is incidentally noted. Mild elevation of the right hemidiaphragm is unchanged . Minimal left basilar opacity favors atelectasis. There is no pneumothorax or pleural effusion. Card iac size is normal. Mediastinal contours are normal. There is no evidence for pulmonary edema. IMPRESSION: No acute cardiopulmonary findings. ACT 112: Negative or not required by law. Electronically signed by: Keith Scruggs M.D. 03/23/2022 3:23 PM
[2022-03-23] MEDS ORDERED: PANTOprazole 40 MG in SYRINGE 0 ML IV ONE (17:51)
[2022-03-23] MEDS ORDERED: cefTRIAXone SODIUM 2,000 MG/70 ML BAG IV STA (17:51)
--- NOTE | 2022-03-23 20:20 | History & Physical Report ---
Date of Service March 23, 2022 Assessment & Plan (1) LGI bleed: Plan: 77yo female with recent treatment for diverticulitis with Ciprofloxacin and Flagyl x 10 days presents with concern for LGIB. She reports two unformed BMs with blood and clots. She is HD stable. H/H is improved now 9.5/29.7. Normochromic/normocytic. -Admit to medical -Maintain two large PIVs -Trend CBC -Patient is Jehova's witness and will not accept transfusion of blood products. Her has a medical card - use of erythropoietic stimulating agents and IV iron is acceptable -GI consultation appreciated. ?if patient will need colonoscopy - previously deferred due to active diverticulitis (2) Edema, peripheral: Plan: Possibly secondary to IVF given during hosptialization. No respiratory distress -weights daily -monitor I/Os -Lasix 20mg IV x 1 (3) Dementia: Plan: Chronic. -Frequent orientation -Avoid delirium inducing agents -Continue Donepezil 5mg po daily (4) Anemia: Plan: Improving. Patient's symptoms concerning for LGIB -Monitor CBC -No transfusion of blood products -GI Consultation re: possible colonoscopy (5) GERD (gastroesophageal reflux disease): Plan: Chronic. Stable -Protonix 40mg po BID (6) Anxiety and depression: Plan: Chronic. Stable -Continue Escitalopram (7) Hyperlipidemia: Plan: Chronic -Continue Atorvastatin (8) Hypertension: Plan: Chronic. BP controlled at present -Continue Losartan 50mg po BID -Hold Amlodipine due to edema -Montior BP (9) Hypothyroidism: Plan: Chronic -Continue Synthroid 75mcg at home dosing (S/M/W/R/F) (10) Type 2 diabetes mellitus: Plan: Well controlled. Last BjeH9T=6.1 -ISS -Hold Metformin History of Present Illness Chief Complaint: bloody BM, swelling Primary Care Provider: DO Chanelle Williamson is a 77yo female with history of HTN, HLP, GERD, and Hypothyroidism presenting with possible LGIB as well as edema. Patient was recently admitted to [facility] from 03/17/22 - 03/22/22 for progressive weakness, nausea and vomiting. She has been treated for acute diverticulitis with a 10 day course of Ciprofloxacin 500mg pO BID and Flagyl 500mg po q 8 hours which started on 03/12/22. During her hospitalization she was found to have a UTI as well as concern for UGIB. She had an EGD performed by Dr. Palencia on 03/17/22 which was normal. No colonoscopy performed due to active diverticulitis. Patient had been NPO and on clear liquid diet during her hospital stay. She was discharged home on 03/22/22. Patient arrived home at 17:30. Her made her some toast. At 20:00 she had a BM that was not formed, she noted some bright red blood as well as some clots. She went to bed around 20:45. At 21:00 she had some nausea and vomited up her toast. No blood hematemesis or coffee ground material noted. Patient woke up overnight and had another dark colored bowel movement at 03:00. She woke this morning and was feeling weak. She had a hard time walking up the stairs due to weakness and BOLANOS. Her noted some significant bilateral LE edema as well as some abdominal distention. He also noted that her discharge weight was noted to be 166#. Her baseline weight is typically 140 - 145#. Patient's PCP called during the day and instructed patient to return to the ER for further evaluation. Patient and also discussed symptoms with friends that instructed her to come to the ER as well. Patient endorses edema, abdominal bloating as well as SOB and BOLANOS. She has no additional nausea. No abdominal pain. Denies fever, chills, cough. No additional complaints at this time. Patient is a Jehova's witness and will not accept transfusion of blood products. reports that her Hgb on 03/20 was 7.7 which increased to 8.3 on 03/22 after IV iron infusion ER Course: Ceftriaxone, Protonix Allergies Allergy/AdvReac Type Severity Reaction Status Date / Time bee venom protein (honey bee) Allergy Severe SWELLS UP Verified 03/23/22 16:28 cefazolin Allergy Severe SHORTNESS Verified 03/23/22 16:28 OF BREATH adhesive Allergy Intermediate HIVES WITH Verified 03/23/22 16:28 TAPE azithromycin Allergy Unknown Unknown Verified 03/23/22 16:28 candesartan AdvReac Intermediate cough Verified 03/23/22 16:28 enalapril AdvReac Intermediate cough Verified 03/23/22 16:28 lisinopril AdvReac Intermediate COUGH Verified 03/23/22 16:28 morphine AdvReac Intermediate ABNORMAL Verified 03/23/22 16:28 DREAMS/PASSED OUT nitroglycerin AdvReac Intermediate GI SYMPTOMS Verified 03/23/22 16:28 Home Medications Medication Instructions Recorded Confirmed Type lancets #50 ea 12/17/18 03/03/22 Rx multivitamin 1 tab PO QAM 12/17/18 03/23/22 History cholecalciferol (vitamin D3) 25 1,000 units PO QAM 04/04/19 03/23/22 History mcg (1,000 unit) capsule blood sugar diagnostic #100 ea 05/31/19 03/03/22 Rx albuterol sulfate 90 mcg/actuation 2 inh inhalation Q6H cough #1 ea 01/02/20 03/23/22 Rx breath activated powder inhaler,sensor (Proair Digihaler) blood sugar diagnostic (OneTouch #50 ea 06/16/21 03/03/22 Rx Verio test strips) donepezil 5 mg tablet 5 mg PO DAILY #90 tabs 08/20/21 03/23/22 Rx loratadine 10 mg tablet 10 mg PO QAM #90 tabs 11/01/21 03/23/22 Rx atorvastatin 10 mg tablet 10 mg PO DAILY #90 tabs 12/10/21 03/23/22 Rx losartan 50 mg tablet 50 mg PO BID #180 tabs 12/28/21 03/23/22 Rx amlodipine 10 mg tablet 10 mg PO DAILY #90 tabs 03/03/22 03/23/22 Rx escitalopram oxalate 20 mg tablet 20 mg PO QAM #90 tabs 03/03/22 03/23/22 Rx metformin 500 mg tablet 500 mg PO DAILY #90 tabs 03/03/22 03/23/22 Rx Synthroid 75 mcg tablet See Rx Instructions .Route 03/04/22 03/23/22 Rx (levothyroxine) .COMPLEX #90 tabs ciprofloxacin HCl 500 mg tablet 500 mg PO Q12H #20 tabs 03/12/22 03/23/22 Rx (Cipro) lancets 33 gauge (OneTouch [place] #100 ea 03/14/22 Rx Lancets) omeprazole 40 mg capsule,delayed 40 mg PO BID #60 caps 03/22/22 03/23/22 Rx release sucralfate 1 gram tablet 1 g PO BID 8 weeks #112 tabs 03/22/22 03/23/22 Rx Past Med/Surg History Medical History Allergic rhinitis Anemia Anxiety and depression Asthma Dementia GERD (gastroesophageal reflux disease) Hyperlipidemia Hypertension Hypothyroidism Lumbar spinal stenosis Nausea and vomiting after administration of anesthetic agent Recurrent syncope Syncope ADMITTED [facility] 12/31/18-EKG/ECHO /HOLTER MONITOR-NO DIAGNOSIS PER PT TMJ syndrome Type 2 diabetes mellitus Surgical History S/P appendectomy S/P cholecystectomy S/P tonsillectomy S/P total hysterectomy and bilateral salpingo-oophorectomy Status post total hip replacement, 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) Family History Father Hypertension Myocardial infarction Diabetes Coronary heart disease Sister Coronary heart disease Mother Diabetes Myocardial infarction Coronary heart disease Hypertension Social History Smoking Status: Never smoker Second Hand Exposure: No; Hx Alcohol Use: No Hx Substance Use: No Preferred Language: Icelandic Communication Ability: Effective Visual Impairment: Limited Hearing Ability: Normal Director Of Retail Operations Required: No Beliefs That Will Affect Care: Scientology Scientology Beliefs: Jehova's Witness, NO BLOOD PRODUCTS marital status: Current Living Situation: Spouse current occupational status: retired Feels Safe at Home: Yes Childhood Exposure to Second-Hand Smoke: No Diet Comment: regular caffeine: No during the past year weight has: remained stable Dental Care, Regularly: Yes Physical Activity Frequency: 1-2 Times per Week Seatbelt Use: always Sunscreen Use: Yes Assistive Devices: None Review of Systems Review of Systems: All systems reviewed & are unremarkable except as noted in HPI & below Physical Exam Physical Exam: General: patient resting comfortably, NAD, non-toxic in appearance, AA&O x 4 Skin: warm, dry, intact, no rashes or lesions HEENT: NC/AT, PERRL, EOMI, anicteric sclera, conjunctiva without injection, external ear normal to inspection and nontender, nares patent, moist mucus membranes, dentition intact, no oropharyngeal lesions, neck supple, trachea midline, no LAD, no thyromegaly, no JVD Heart: +S1/S2, regular, no m/r/g Lungs: equal air entry bilaterally, crackles in bilateral bases, no rhonchi or wheezes Abd: +BS, soft, ND, mild tenderness in LLQ without rebound/guarding or peritonitis, no masses/organomegaly/ascites Ext: warm, 2+ pulses in UE/LE bilaterally, no clubbing/cyanosis, 2+ non-pitting edema of bilateral LE Neuro: nonfocal, patient AA&O x 4, speech intact, no facial droop, moving all extremities on command with equal strength 5/5 Results & Data Results & Data ([facility]) Vital Signs (Past 12 Hours) Vital Signs Temp Pulse Resp BP Pulse Ox O2 Del Method 03/23/22 19:16 98 Room Air 03/23/22 15:30 78 19 131/62 95 03/23/22 15:25 74 18 97 03/23/22 13:07 36.8 C 62 18 102/56 L 97 Room Air Laboratory Results Laboratory Results WBC 10.55 K/ul (4.8-10.8) 03/23/22 13:33 RBC 3.33 M/uL (3.93-5.22) L 03/23/22 13:33 Hgb 9.5 g/dl (12.0-16.0) L 03/23/22 13:33 Hct 29.7 % (34.1-44.9) L 03/23/22 13:33 MCV 89.2 fL (80.0-100.0) 03/23/22 13:33 MCH 28.5 pg (25.0-34.0) 03/23/22 13:33 MCHC 32.0 g/dL (32.0-36.0) 03/23/22 13:33 RDW Std Deviation 46.7 fL (36.4-46.3) H 03/23/22 13:33 RDW Coeff of [place] 15.3 % (11.5-14.5) H 03/23/22 13:33 Plt Count 328 K/uL (130-400) D 03/23/22 13:33 MPV 10.4 fL (9.4-12.3) 03/23/22 13:33 Immature Gran % (Auto) 0.3 % 03/23/22 13:33 Neut % (Auto) 69.5 % 03/23/22 13:33 Lymph % (Auto) 20.3 % 03/23/22 13:33 [place] % (Auto) 7.4 % 03/23/22 13:33 Eos % (Auto) 1.9 % 03/23/22 13:33 Baso % (Auto) 0.6 % 03/23/22 13:33 Neut # (Auto) 7.34 K/uL (1.4-6.5) H 03/23/22 13:33 Lymph # (Auto) 2.14 K/uL (1.2-3.4) 03/23/22 13:33 [place] # (Auto) 0.78 K/uL (0.24-0.82) 03/23/22 13:33 Eos # (Auto) 0.20 K/uL (0-0.50) 03/23/22 13:33 Baso # (Auto) 0.06 K/uL (0-0.2) 03/23/22 13:33 Immature Gran # (Auto) 0.03 K/uL (0.00-0.02) H 03/23/22 13:33 PT 13.7 Seconds (9.0-12.0) H 03/23/22 13:33 INR 1.3 (0.9-1.1) H 03/23/22 13:33 APTT 23.3 Seconds (21.0-31.0) 03/23/22 13:33 PTT Ratio 0.8 03/23/22 13:33 Sodium 136 mmol/L (136-145) 03/23/22 13:33 Potassium 3.9 mmol/L (3.5-5.1) 03/23/22 13:33 Chloride 108 mmol/L (98-107) H 03/23/22 13:33 Carbon Dioxide 22 mmol/L (21-32) 03/23/22 13:33 Anion Gap 6 (3-11) 03/23/22 13:33 BUN 5 mg/dl (6-23) L 03/23/22 13:33 Creatinine 1.10 mg/dl (0.6-1.2) 03/23/22 13:33 Est Cr Clr Drug Dosing Not Reportable 03/23/22 13:33 Est GFR ( Amer) 55.3 ml/min 03/23/22 13:33 Est GFR (Non-Af Amer) 47.7 ml/min 03/23/22 13:33 BUN/Creatinine Ratio 4.5 (10-20) L 03/23/22 13:33 Glucose 134 mg/dl (70-99(Fasting)) H 03/23/22 13:33 POC Glucose 115 mg/dl (70-99) H 03/23/22 23:19 Calcium 8.0 mg/dl (8.5-10.1) L 03/23/22 13:33 Magnesium 1.8 mg/dl (1.7-2.4) 03/23/22 13:33 Total Bilirubin 0.8 mg/dl (0.2-1.0) 03/23/22 13:33 Direct Bilirubin 0.2 mg/dl (0-0.2) 03/23/22 16:18 AST 21 U/L (13-39) 03/23/22 13:33 ALT 7 U/L (7-52) 03/23/22 13:33 Alkaline Phosphatase 67 U/L (34-104) 03/23/22 13:33 Ammonia 29.0 umol/L (18-72) 03/23/22 18:47 Troponin I High Sens 10.5 pg/ml (0-14) 03/23/22 13:33 B-Natriuretic Peptide 438 pg/ml (0-100) H 03/23/22 16:18 Total Protein 5.9 gm/dl (6.0-8.3) L 03/23/22 13:33 Albumin 3.0 gm/dl (3.4-5.0) L 03/23/22 13:33 Globulin 2.9 gm/dl (2.5-4.0) 03/23/22 13:33 Albumin/Globulin Ratio 1.0 (0.9-2) 03/23/22 13:33 SARS-CoV-2, RNA, NAAT NEGATIVE (NEGATIVE) 03/23/22 18:42 Impressions Chest X-Ray 03/23/22 14:42 XR chest 1V portable CLINICAL HISTORY: Swelling. Fluid retention. COMPARISON STUDY: Chest radiograph March 17, 2022. FINDINGS: Loop recorder is incidentally noted. Mild elevation of the right hemidiaphragm is unchanged. Minimal left basilar opacity favors atelectasis. There is no pneumothorax or pleural effusion. Cardiac size is normal. Mediastinal contours are normal. There is no evidence for pulmonary edema. IMPRESSION: No acute cardiopulmonary findings. ACT 112: Negative or not required by law. Electronically signed by: Keith Scruggs M.D. 03/23/2022 3:23 PM ECG Additional Comments: DICTATED BY:David Sr MD Test Reason : Blood Pressure : / mmHG Vent. Rate : 070 BPM Atrial Rate : 070 BPM P-R Int : 198 ms QRS Dur : 072 ms QT Int : 446 ms P-R-T Axes : 007 -18 047 degrees QTc Int : 481 ms Poor data quality, interpretation may be adversely affected Sinus rhythm with sinus arrhythmia with frequent Premature ventricular complexes Low voltage QRS Abnormal ECG When compared with ECG of 17-MAR-2022 12:23, Nonspecific T wave abnormality now evident in Lateral leads Confirmed by David Sr ([id number]) on 03/23/2022 2:14:16 PM Referred By: Confirmed By:Jeronimo Sr PG Care Time/CCT Total # of Minutes Spent Total Time Spent with Patient: Total time spent is greater than 50% in coordination of care (as documented) at patient's floor/unit and/or counseling patient: Coding Level of Care Code 23661 Initial Inpt Care Lvl 3 Diagnoses LGI bleed K92.2 Edema, peripheral R60.9 Dementia F03.90 Anemia D64.9 Anemia type: unspecified type GERD (gastroesophageal reflux disease) K21.9 Anxiety and depression F41.9; F32.9 Hyperlipidemia E78.5 Hypertension I10 Hypothyroidism E03.9 Type 2 diabetes mellitus E11.9 (1) Anemia Anemia type: unspecified type Qualified Code(s): D64.9 - Anemia, unspecified
[2022-03-23] MEDS ORDERED: GLUCOSE 40% GEL 15 GM TUBE PO PRN (23:30)
[2022-03-23] MEDS ORDERED: INSULIN ASPART PER UNIT SC SCH (23:30)
[2022-03-23] MEDS ORDERED: GLUCOSE 10 TAB/TUBE PO PRN (23:30)
[2022-03-23] MEDS ORDERED: GLUCAGON FOR INJ 1 MG VIAL SQ PRN (23:30)
[2022-03-23] MEDS ORDERED: FUROSEMIDE INJ 20 MG/2 ML VIAL IV ONE (23:30)
[2022-03-23] MEDS ORDERED: CARBOHYDRATES FOR HYPOGLYCEMIA PO PRN (23:30)
[2022-03-23] MEDS ORDERED: ONDANSETRON INJ 2 MG/ML 2 ML VIAL IV PRN (23:30)
[2022-03-23] MEDS ORDERED: DEXTROSE 50% 50 ML SYRINGE IV PRN (23:30)
[2022-03-23] MEDS ORDERED: CIPROFLOXACIN 500 MG TAB PO SCH (23:30)
[2022-03-23] MEDS ORDERED: ACETAMINOPHEN 325 MG TAB PO PRN (23:30)
[2022-03-24] MEDS: SUCRALFATE 1 GM TAB PO SCH ×3 (00:22→20:59)
[2022-03-24] MEDS: PANTOprazole 40 MG TAB PO SCH ×3 (00:22→20:59)
[2022-03-24] MEDS: LOSARTAN POTASSIUM 50 MG TAB PO SCH ×3 (00:22→20:59)
[2022-03-24] MEDS ORDERED: Nursing to Pharmacy Communication SCH ×2 (05:45→14:45)
[2022-03-24] MEDS: LEVOTHYROXINE SODIUM 75 MCG TABLET PO SCH (06:02)
[2022-03-24] MEDS: INSULIN ASPART PER UNIT SC SCH ×4 (06:30→20:58)
[2022-03-24 09:09] LABS: Basophils # (auto) 0.04 K/uL (0-0.2); Basophils % (auto) 0.6 %; Eosinophils % (auto) 4.6 %; Hematocrit (blood only) 26.3 % (34.1-44.9); Hemoglobin 8.8 g/dl (12.0-16.0); Immature Granulocytes # (auto) 0.02 K/uL (0.00-0.02); Immature Granulocytes % (auto) 0.3 %; Lymphocytes # (auto) 1.33 K/uL (1.2-3.4); Lymphocytes % (auto) 20.6 %; Mean Corpuscular Hemoglobin 28.9 pg (25.0-34.0); Mean Corpuscular Hgb Conc 33.5 g/dL (32.0-36.0); Mean Corpuscular Volume 86.2 fL (80.0-100.0); Mean Platelet Volume 10.3 fL (9.4-12.3); Monocytes # (auto) 0.45 K/uL (0.24-0.82); Neutrophils # (auto) 4.32 K/uL (1.4-6.5); Neutrophils % (auto) 66.9 %; Platelet Count 254 K/uL (130-400); RDW Coefficient of Variation 15.4 % (11.5-14.5); RDW Standard Deviation 46.3 fL (36.4-46.3); Red Blood Count 3.05 M/uL (3.93-5.22); White Blood Count 6.46 K/ul (4.8-10.8)
[2022-03-24 09:42] LABS: BUN Creatinine Ratio 3.9 (10-20); Creatinine Clr Calc Pharmacy 35.1 ml/min; Est GFR (Non-African American) 39.7 ml/min; Potassium 3.4 mmol/L (3.5-5.1)
[2022-03-24] MEDS: ATORVASTATIN 10 MG TAB PO SCH (09:46)
[2022-03-24] MEDS: DONEPEZIL HCL 5 MG TAB PO SCH (09:46)
[2022-03-24] MEDS: ESCITALOPRAM OXALATE 20 MG TAB PO SCH (09:46)
[2022-03-24] MEDS: LORATADINE 10 MG TAB PO SCH (09:46)
--- NOTE | 2022-03-24 10:02 | Gastrointestinal Consultation ---
Date of Consultation March 24, 2022 Assessment & Plan (1) LGI bleed: (2) Cirrhosis: Plan Discussed case with Dr. Escudero who advised on plan. - will continue to monitor H/H. can use IV iron as needed. she will not accept blood transfusion. - lower bleeding does seem to be resolving. would defer any colonoscopy for 4-6 weeks given recent diverticulitis. - can follow up on cirrhosis as an outpatient. Supervising Physician Co-Signing Physician Notes I personally evaluated the patient and agree with the findings as documented by Theo Aguilera, PAC Exam: Constitutional: WD/WN, vitals as above General: EOM intact bilaterally Neck: normal visual inspection Respiratory: normal respiratory effort, lungs clear to auscultation Cardiovascular: RRR, no murmur, no edema Gastrointestinal: abdomennormal to inspection, nondistended, soft, nontender, no hepatosplenomegaly Musculoskeletal: no cyanosis, head normal to inspection Skin: no rashes, warm and dry Neurologic: moves all extremities Psychiatric: A and O x3, euthymic affect History of Present Illness Reason for Consultation: ? LGIB Requesting Physician: Dr. Renate Salguero Attending Physician: Lisa Blanco MD History of Present Illness Patient is a 77 year old female with past medical history of HTN, HLP, GERD, and hypothyroidism presenting with lower extremity edema and LGIB. She was recently admitted to [facility] 03/17/22 through 03/22/22 for progressive weakness, nausea, vomiting, concern for UGIB. She had CT with question of diverticulitits and was treated with cipro and flagyl. She had an EGD done by Dr. Palencia on 03/17/22 which was unremarkable. No colonoscopy was done due to active diverticulitis. She was discharged on 03/22/22. After being home she tells me that she had another episode of bleeding with a bowel movement. Also was nauseated and had vomiting and was having progressive weakness and swelling in her lower extremities. She contacted her PCP who advised her to return to ED for evaluation. Last admission she had CT suggestive of cirrhosis/mild ascites. since admission, she tells me she has had no further nausea, vomiting. denies heartburn. She feels rectal bleeding is resolving. Per nursing, last bowel movement last night had no obvious bleeding and stools were brown. Hgb currently is 8.8 (was 9.5 and prior to that was 8.4). Last admit she had IV iron infusion. she is a Jehova's witness and does not accept transfusion of blood products. Allergies Allergy/AdvReac Type Severity Reaction Status Date / Time bee venom protein (honey bee) Allergy Severe SWELLS UP Verified 03/23/22 16:28 cefazolin Allergy Severe SHORTNESS Verified 03/23/22 16:28 OF BREATH adhesive Allergy Intermediate HIVES WITH Verified 03/23/22 16:28 TAPE azithromycin Allergy Unknown Unknown Verified 03/23/22 16:28 candesartan AdvReac Intermediate cough Verified 03/23/22 16:28 enalapril AdvReac Intermediate cough Verified 03/23/22 16:28 lisinopril AdvReac Intermediate COUGH Verified 03/23/22 16:28 morphine AdvReac Intermediate ABNORMAL Verified 03/23/22 16:28 DREAMS/PASSED OUT nitroglycerin AdvReac Intermediate GI SYMPTOMS Verified 03/23/22 16:28 Home Medications Medication Instructions Recorded Confirmed Type lancets #50 ea 12/17/18 03/03/22 Rx multivitamin 1 tab PO QAM 12/17/18 03/23/22 History cholecalciferol (vitamin D3) 25 1,000 units PO QAM 04/04/19 03/23/22 History mcg (1,000 unit) capsule blood sugar diagnostic #100 ea 05/31/19 03/03/22 Rx albuterol sulfate 90 mcg/actuation 2 inh inhalation Q6H cough #1 ea 01/02/20 03/23/22 Rx breath activated powder inhaler,sensor (Proair Digihaler) blood sugar diagnostic (OneTouch #50 ea 06/16/21 03/03/22 Rx Verio test strips) donepezil 5 mg tablet 5 mg PO DAILY #90 tabs 08/20/21 03/23/22 Rx loratadine 10 mg tablet 10 mg PO QAM #90 tabs 11/01/21 03/23/22 Rx atorvastatin 10 mg tablet 10 mg PO DAILY #90 tabs 12/10/21 03/23/22 Rx losartan 50 mg tablet 50 mg PO BID #180 tabs 12/28/21 03/23/22 Rx amlodipine 10 mg tablet 10 mg PO DAILY #90 tabs 03/03/22 03/23/22 Rx escitalopram oxalate 20 mg tablet 20 mg PO QAM #90 tabs 03/03/22 03/23/22 Rx metformin 500 mg tablet 500 mg PO DAILY #90 tabs 03/03/22 03/23/22 Rx Synthroid 75 mcg tablet See Rx Instructions .Route 03/04/22 03/23/22 Rx (levothyroxine) .COMPLEX #90 tabs ciprofloxacin HCl 500 mg tablet 500 mg PO Q12H #20 tabs 03/12/22 03/23/22 Rx (Cipro) lancets 33 gauge (OneTouch [place] #100 ea 03/14/22 Rx Lancets) omeprazole 40 mg capsule,delayed 40 mg PO BID #60 caps 03/22/22 03/23/22 Rx release sucralfate 1 gram tablet 1 g PO BID 8 weeks #112 tabs 03/22/22 03/23/22 Rx Patient History Medical History Allergic rhinitis Anemia Anxiety and depression Asthma Dementia GERD (gastroesophageal reflux disease) Hyperlipidemia Hypertension Hypothyroidism Lumbar spinal stenosis Nausea and vomiting after administration of anesthetic agent Recurrent syncope Syncope ADMITTED [facility] 12/31/18-EKG/ECHO /HOLTER MONITOR-NO DIAGNOSIS PER PT TMJ syndrome Type 2 diabetes mellitus Surgical History S/P appendectomy S/P cholecystectomy S/P tonsillectomy S/P total hysterectomy and bilateral salpingo-oophorectomy Status post total hip replacement, 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) Family History Father Hypertension Myocardial infarction Diabetes Coronary heart disease Sister Coronary heart disease Mother Diabetes Myocardial infarction Coronary heart disease Hypertension Social History Smoking Status: Never smoker Second Hand Exposure: No; Hx Alcohol Use: No Hx Substance Use: No Preferred Language: Guamanian Communication Ability: Effective Visual Impairment: Limited Hearing Ability: Normal Client Services Assistant Required: No Beliefs That Will Affect Care: Gnosticism Gnosticism Beliefs: Jehova's Witness- NO BLOOD PRODUCTS TO BE GIVEN TO PT marital status: Current Living Situation: Spouse current occupational status: retired Feels Safe at Home: Yes Childhood Exposure to Second-Hand Smoke: No Diet Comment: regular caffeine: No during the past year weight has: remained stable Dental Care, Regularly: Yes Physical Activity Frequency: 1-2 Times per Week Seatbelt Use: always Sunscreen Use: Yes Assistive Devices: Cane and Walker Review of Systems Review of Systems: All systems reviewed & are unremarkable except as noted in HPI & below Physical Exam Constitutional: WD/WN, vitals as above Respiratory: normal respiratory effort, lungs clear to auscultation Cardiovascular: Rate/Rhythm: regular rate and regular rhythm lower extremity swelling Gastrointestinal (Abdomen): normal bowel sounds, soft, nontender, no hepatosplenomegaly no ascites appreciated. Skin: no rashes, warm and dry Psychiatric: Orientation: alert Affect: euthymic affect oriented x 2 Results & Data ([facility]) Vital Signs (Past 12 Hours) Vital Signs Temp Pulse Pulse Resp BP Pulse Ox O2 Del Method 03/24/22 07:41 36.4 C L 80 18 148/73 H 96 Room Air 03/23/22 23:30 Room Air 03/23/22 23:30 36.7 C 88 18 115/78 95 Room Air 03/23/22 23:30 36.7 C 88 18 115/78 95 Room Air 03/23/22 22:52 83 16 125/59 L 93 Room Air PG Care Time/CCT Total # of Minutes Spent Total Time Spent with Patient: Total time spent is greater than 50% in coordination of care (as documented) at patient's floor/unit and/or counseling patient: Coding Level of Care Code 66372 Initial Inpt Care Lvl 3 Diagnoses LGI bleed K92.2 Cirrhosis K74.60
--- NOTE | 2022-03-24 15:39 | Hospitalist Progress Note ---
Date of Service March 24, 2022 Assessment & Plan (1) LGI bleed: Plan: 77yo female with recent treatment for diverticulitis with Ciprofloxacin and Flagyl x 10 days presents with concern for LGIB. She reports two unformed BMs with blood and clots. -I dont know how reliable her history is given her dementia, however she was just discharged from the hospital a couple of days ago -During her last hospital stay, GI did EGD, which did not show any evidence of bleed, but deferred colonoscopy for 4-6 weeks on account of acute diverticulitis -Hemoglobin has actually improved since discharge -will continue protonic and carafate -Patient is Jehova's witness and will not accept transfusion of blood products. Her has a medical card - use of erythropoietic stimulating agents and IV iron is acceptable -Appreciate GI (2) Edema, peripheral: Plan: Possibly secondary to IVF given during hosptialization. No respiratory distress -weights daily -monitor I/Os -Lasix 20mg IV x 1 (3) Dementia: Plan: Chronic. -Frequent orientation -Avoid delirium inducing agents -Continue Donepezil 5mg po daily (4) Anemia: Plan: Improving. Patient's symptoms concerning for LGIB -Monitor CBC -No transfusion of blood products -GI Consultation re: possible colonoscopy (5) GERD (gastroesophageal reflux disease): Plan: Chronic. Stable -Protonix 40mg po BID (6) Anxiety and depression: Plan: Chronic. Stable -Continue Escitalopram (7) Hyperlipidemia: Plan: Chronic -Continue Atorvastatin (8) Hypertension: Plan: Chronic. BP controlled at present -Continue Losartan 50mg po BID -Hold Amlodipine due to edema -Montior BP (9) Hypothyroidism: Plan: Chronic -Continue Synthroid 75mcg at home dosing (S/M/W/R/F) (10) Type 2 diabetes mellitus: Plan: Well controlled. Last LecT8W=1.1 -ISS -Hold Metformin Plan monitor Admission and Anticipated Discharge Date Admission Date: March 23, 2022 Subjective patient seen and examined, no new complaints, gets confused occasionally due to dementia Review of Systems Review of Systems: All systems reviewed are negative, apart from the ones contained in the history. Physical Exam Physical Exam: The patient is awake, alert and oriented 3, well developed and well nourished, normocephalic and atraumatic, lying in bed and in no acute distress. HEENT--PERRL, EOMI, mucous membranes and oropharynx mildly dry Neck--supple. No JVD. No bruits. Thyroid normal, trachea midline, no adenopathy. Heart--normal S1 and S2. No murmurs, rubs or gallops. Lungs--clear bilaterally, no respiratory distress, no accessory muscle use. Abdomen--normal bowel sounds and soft. Mild epigastric and left sided abdominal pain Extremities--no cyanosis or clubbing. No edema. Dermatologic--normal skin turgor, normal color, no abnormal lymph nodes, no rash. Neurologic--cranial nerves II through XII grossly intact. Rheumatologic--normal range of motion. Psychiatric--normal affect. Results & Data Results & Data ([facility]) Vital Signs (Past 12 Hours) Vital Signs Temp Pulse Resp BP Pulse Ox O2 Del Method 03/24/22 11:04 98.2 F 72 14 132/74 95 03/24/22 07:41 97.5 F L 80 18 148/73 H 96 Room Air PG Care Time/CCT Total # of Minutes Spent Total Time Spent with Patient: Total time spent is greater than 50% in coordination of care (as documented) at patient's floor/unit and/or counseling patient: Coding Level of Care Code 20105 Subseq Hosp Care Lvl 2 Diagnoses LGI bleed K92.2 Edema, peripheral R60.9 Dementia F03.90 Anemia D64.9 Anemia type: unspecified type GERD (gastroesophageal reflux disease) K21.9 Anxiety and depression F41.9; F32.9 Hyperlipidemia E78.5 Hypertension I10 Hypothyroidism E03.9 Type 2 diabetes mellitus E11.9 Time Spent (min) 35 (1) Anemia Anemia type: unspecified type Qualified Code(s): D64.9 - Anemia, unspecified
[2022-03-25] MEDS: LEVOTHYROXINE SODIUM 75 MCG TABLET PO SCH (06:28)
[2022-03-25] MEDS: LORATADINE 10 MG TAB PO SCH (07:57)
[2022-03-25] MEDS: SUCRALFATE 1 GM TAB PO SCH ×2 (07:57→21:05)
[2022-03-25] MEDS: ESCITALOPRAM OXALATE 20 MG TAB PO SCH (07:57)
[2022-03-25] MEDS: ATORVASTATIN 10 MG TAB PO SCH (07:58)
[2022-03-25] MEDS: LOSARTAN POTASSIUM 50 MG TAB PO SCH ×2 (07:58→21:05)
[2022-03-25] MEDS: PANTOprazole 40 MG TAB PO SCH ×2 (07:58→21:05)
[2022-03-25] MEDS: DONEPEZIL HCL 5 MG TAB PO SCH (07:58)
--- NOTE | 2022-03-25 08:03 | Hospitalist Progress Note ---
Date of Service March 25, 2022 Assessment & Plan (1) LGI bleed: Plan: 77yo female with recent treatment for diverticulitis with Ciprofloxacin and Flagyl x 10 (PO at home, IV while inpatient, however had been continued Cipro/Flagyl at discharge this week -- WILL DC on MED REC) Presents with concern for LGIB --> two unformed BMs with melena, blood and clots. Hgb stable 9.6 on am labs Continue on protonix BID, carafate Checked Iron studies given patient previously given IV iron/Jehovah witness --> iron only 37, trans % sat low 13 --> venofer 200mg IV x 1 provided Had 2 BM subsequently yesterday, no further evidence of bleeding. ?if residual from diverticular bleed. Bleeding scan last admission negative this past week. EGD negative. Outpatient c-scope in 6 weeks given acute diverticulitis will need to be arranged (she states she had one in the past 2-3 years). Also should have f/u in discussions regarding cirrhosis, denied hx etoh use at all Of note, significant reason in addition to darkened stools, was patients weight/LE edema and SOB on exertion at discharge when she got home BNP elevated and suspect component of CHF as patient reported baseline weights ~140-145lb. S he was ~143lb on 03/12 as an outpatient, 73kg (160lb) on admission 03/17 and discharged at 166lb. --> On admission, weight 177lb . reported patient difficulty getting up steps at home with significant shortness of breath on exertion/inability to lay flat Given lasix 20mg IV x 1, K 3.4 on repeat labs without replacement ordered. I also checked a magnesium given hypokalemia and prior hypomagnesemia --Low at 1.6, IV replacement ordered --> Given dose of lasix 20IV x 1 this morning, additional 20mg IV this evening with PO Kcl supplementation Discussed with /patient, hgb likely higher than reported value and will monitor response with diuretics. could continue PO iron, but suspect body will regerate given prior Venofer infusions as well (2) Edema, peripheral: Plan: Possibly secondary to IVF given during hospitalization. No respiratory distress. BNP elevated 438, no hx CHF. ECHO w/o significant valvular disease, LA enlargement noted Did mention cirrhosis on prior admit imaging--> cirrhosis with mild ascites on CTAP noted. ALbumin levels low at 3 Daily weights ordered --> not yet obtained. Asking RN to obtain daily standing scale weights Patient w/ pain to palpation/edema --> no DVT proph last admission given GI bleeding. Also noted had not yet been out of bed or ever out of bed last admission --> Venous Doppler checked -- NEGATIVE for DVT Additional 20mg IV lasix provided this morning with PO K, additional 20mg IV this evening Needs further education on low salt diet/andrew given cirrhosis, and monitoring of weights at home. Consider PO lasix supplementation at discharge for next couple of days/prn, and repeat labs next week as patient/ hopeful for discharge tomorrow Monitor I&O (3) Dementia: Plan: Chronic, reported However, patient alert/oriented for me during encounter Continue donepezil on synthroid 5x/week given prior TSH low 0.028 outpatient last month and decreased to 50mcg but had pills for 75mcg and instructed to take 5x/week Repeat TSH wnl Will check B12 in AM as well (4) Anemia: Plan: Improving. Patient's symptoms concerning for LGIB on admission, vs possible resolving divericular bleed Hgb stable, no further bleeding reported Venofer x 1 as above, diuretics as outlined GI consulted -- no inpatient scope, outpatient scope in 6 weeks once out from acute diverticulitis (5) GERD (gastroesophageal reflux disease): Plan: Chronic. Stable -Protonix 40mg po BID continued, carafate added -- continue at d/c EGD 03/[address] Palencia (6) Anxiety and depression: Plan: Chronic. Stable -Continue Escitalopram (7) Hyperlipidemia: Plan: Chronic -Continue Atorvastatin (8) Hypertension: Plan: Chronic. BP controlled at present Continue Losartan 50mg po BID Lasix ordered as above Consider adding spironolactone/lasix for cirrhosis and volume management given response to lasix overnight/K on AM labs Would need close monitoring of kidney function/potassium if on losartan/spironolactone (9) Hypothyroidism: Plan: Chronic -Continue Synthroid 75mcg at home dosing (S/M/W/R/F) -- had reduced to 50mcg daily but had 75mcg pills and instructed to take 5x/week. Repeat TSH wnl -- continue current course as prescribed and will need new rx when out for new 50mcg tablets (10) Type 2 diabetes mellitus: Plan: Well controlled. Last BdiJ1A=7.1 -ISS -Hold Metformin in patient and utilize SSI Plan continued inpatient stay diuretics as outlined, monitor response in AM possible d/c w/ PO lasix for volume management if no further bleeding Will need outpt GI in follow up for c-scope Admission and Anticipated Discharge Date Admission Date: March 23, 2022 Supervising Physician Co-Signing Physician Notes PA Supervision Note: I did not personally see or examine the patient today, but I verified all howell points of SHAILA Acosta's assessment and plan with the following exceptions/additions: None Subjective eval this morning around 11am with at bedside patient moved her bowels, brown, no further bright red bleedin/dark stools/clots noted had been continued on abx cipro/flagyl at d/c -- however did complete 10days from ER/last inpatient stay. would not continue further concerned as weight typically ~140lb and was ~160+ at dc last admission, increased LE swelling. wondered if able to get therapy to get her up/moving. Noted never seen by therapy last admission, hardly out of bed. Does have some increased SOB w/ laying flat noted and had some coughing episode/felt like hard to catch her breath laying flat. No productive sputum but stated her appetite wasn't the greatest and she did vomiting up some toast prior to last admission. 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 Noted cirrhosis, never a drinker. Discussed spirionolactone and possible uptitration. She does have pain to palpation of her b/l LE, tenderness ot palpation. No in creased edema one side ocmpared to the other and discussed checking venous doppler to r/o DVT but if negative would plan additional dose of lasix. Patient/ hopeful for d/c tomorrow but understanding if needs to remain inpatient through monday. Also discussed hgb levels -- wondering if anything to take orally. Discussed PO iron but can cause constipation/darkened stools. Can also consider IV iron at PCP f/u, however discussed low albumin/volume overload and suspect hgb actually higher than recorded values in the system. Questions/concerns asked. Thankful for time spent. Review of Systems Review of Systems: All systems reviewed & are unremarkable except as noted in HPI & below Physical Exam Physical Exam: General: WD/WN elderly female sitting up in bed, at bedside, NAD HEENT: head normocephalic, atraumatic, mmm, trachea midline, eyes anicteric Resp: CTAB, diminished in the bases, 97% on RA CV: RRR, no m/r/g, pitting edema, calf tenderness bilaterally to palpation, pulses palpable, no increased edema one side compared to the right, cap refill wnl GI: +BS, +distended, nontender to palpation MSK/Neuro: moves extremities, no focal deficit Skin: cool, dry Psych: AOx3, cooperative Results & Data Results & Data ([facility]) Vital Signs (Past 12 Hours) Vital Signs Temp Pulse Resp BP Pulse Ox O2 Del Method 03/25/22 07:50 37.0 C 82 18 116/80 98 Room Air 03/24/22 21:01 36.8 C 84 16 117/75 94 Room Air Laboratory Results 03/25/22 03/25/22 03/25/22 Range/Units 17:06 12:09 09:10 WBC (4.8-10.8) K/ul RBC (3.93-5.22) M/uL Hgb (12.0-16.0) g/dl Hct (34.1-44.9) % MCV (80.0-100.0) fL MCH (25.0-34.0) pg MCHC (32.0-36.0) g/dL RDW Std Deviation (36.4-46.3) fL RDW Coeff of [place] (11.5-14.5) % Plt Count (130-400) K/uL MPV (9.4-12.3) fL Sodium (136-145) mmol/L Potassium (3.5-5.1) mmol/L Chloride (98-107) mmol/L Carbon Dioxide (21-32) mmol/L Anion Gap (3-11) BUN (6-23) mg/dl Creatinine (0.6-1.2) mg/dl Est Cr Clr Drug Dosing ml/min Est GFR ( Amer) ml/min Est GFR (Non-Af Amer) ml/min BUN/Creatinine Ratio (10-20) Glucose (70-99(Fasting)) mg/dl POC Glucose 153 H 133 H (70-99) mg/dl Calcium (8.5-10.1) mg/dl Magnesium (1.7-2.4) mg/dl Iron (35-150) mcg/dl TIBC (250-450) mcg/dl Unsaturated IBC (155-355) mcg/dl Transferrin % Sat (15-50) % Ferritin (8-388) ng/ml C-Reactive Protein (0-0.5) mg/dl B-Natriuretic Peptide (0-100) pg/ml TSH (0.300-4.500) uIu/ml Stool Occult Bld Scrn Positive A (Negative) 03/25/22 03/25/22 03/25/22 Range/Units 08:13 08:10 08:10 WBC (4.8-10.8) K/ul RBC (3.93-5.22) M/uL Hgb (12.0-16.0) g/dl Hct (34.1-44.9) % MCV (80.0-100.0) fL MCH (25.0-34.0) pg MCHC (32.0-36.0) g/dL RDW Std Deviation (36.4-46.3) fL RDW Coeff of [place] (11.5-14.5) % Plt Count (130-400) K/uL MPV (9.4-12.3) fL Sodium (136-145) mmol/L Potassium (3.5-5.1) mmol/L Chloride (98-107) mmol/L Carbon Dioxide (21-32) mmol/L Anion Gap (3-11) BUN (6-23) mg/dl Creatinine (0.6-1.2) mg/dl Est Cr Clr Drug Dosing ml/min Est GFR ( Amer) ml/min Est GFR (Non-Af Amer) ml/min BUN/Creatinine Ratio (10-20) Glucose (70-99(Fasting)) mg/dl POC Glucose 126 H (70-99) mg/dl Calcium (8.5-10.1) mg/dl Magnesium (1.7-2.4) mg/dl Iron 37 (35-150) mcg/dl TIBC 294 (250-450) mcg/dl Unsaturated IBC 257 (155-355) mcg/dl Transferrin % Sat 13 L (15-50) % Ferritin (8-388) ng/ml C-Reactive Protein (0-0.5) mg/dl B-Natriuretic Peptide (0-100) pg/ml TSH 1.587 (0.300-4.500) uIu/ml Stool Occult Bld Scrn (Negative) 03/25/22 03/25/22 03/25/22 Range/Units 08:10 08:10 08:10 WBC 7.62 (4.8-10.8) K/ul RBC 3.37 L (3.93-5.22) M/uL Hgb 9.6 L (12.0-16.0) g/dl Hct 29.7 L (34.1-44.9) % MCV 88.1 (80.0-100.0) fL MCH 28.5 (25.0-34.0) pg MCHC 32.3 (32.0-36.0) g/dL RDW Std Deviation 48.6 H (36.4-46.3) fL RDW Coeff of [place] 15.7 H (11.5-14.5) % Plt Count 286 (130-400) K/uL MPV 10.0 (9.4-12.3) fL Sodium 140 (136-145) mmol/L Potassium 3.4 L (3.5-5.1) mmol/L Chloride 109 H (98-107) mmol/L Carbon Dioxide 21 (21-32) mmol/L Anion Gap 10 (3-11) BUN 6 (6-23) mg/dl Creatinine 1.34 H (0.6-1.2) mg/dl Est Cr Clr Drug Dosing 33.5 ml/min Est GFR ( Amer) 43.6 ml/min Est GFR (Non-Af Amer) 37.6 ml/min BUN/Creatinine Ratio 4.5 L (10-20) Glucose 127 H (70-99(Fasting)) mg/dl POC Glucose (70-99) mg/dl Calcium 7.8 L (8.5-10.1) mg/dl Magnesium 1.6 L (1.7-2.4) mg/dl Iron (35-150) mcg/dl TIBC (250-450) mcg/dl Unsaturated IBC (155-355) mcg/dl Transferrin % Sat (15-50) % Ferritin 114.6 (8-388) ng/ml C-Reactive Protein 1.22 H (0-0.5) mg/dl B-Natriuretic Peptide 300 H (0-100) pg/ml TSH (0.300-4.500) uIu/ml Stool Occult Bld Scrn (Negative) 03/24/22 Range/Units 20:48 WBC (4.8-10.8) K/ul RBC (3.93-5.22) M/uL Hgb (12.0-16.0) g/dl Hct (34.1-44.9) % MCV (80.0-100.0) fL MCH (25.0-34.0) pg MCHC (32.0-36.0) g/dL RDW Std Deviation (36.4-46.3) fL RDW Coeff of [place] (11.5-14.5) % Plt Count (130-400) K/uL MPV (9.4-12.3) fL Sodium (136-145) mmol/L Potassium (3.5-5.1) mmol/L Chloride (98-107) mmol/L Carbon Dioxide (21-32) mmol/L Anion Gap (3-11) BUN (6-23) mg/dl Creatinine (0.6-1.2) mg/dl Est Cr Clr Drug Dosing ml/min Est GFR ( Amer) ml/min Est GFR (Non-Af Amer) ml/min BUN/Creatinine Ratio (10-20) Glucose (70-99(Fasting)) mg/dl POC Glucose 142 H (70-99) mg/dl Calcium (8.5-10.1) mg/dl Magnesium (1.7-2.4) mg/dl Iron (35-150) mcg/dl TIBC (250-450) mcg/dl Unsaturated IBC (155-355) mcg/dl Transferrin % Sat (15-50) % Ferritin (8-388) ng/ml C-Reactive Protein (0-0.5) mg/dl B-Natriuretic Peptide (0-100) pg/ml TSH (0.300-4.500) uIu/ml Stool Occult Bld Scrn (Negative) Diagnostic Findings Venous Doppler Study 03/25/22 11:39 BILATERAL LOWER EXTREMITY VENOUS DOPPLER HISTORY: Acute pain and swelling of the right lower leg r/o DVT COMPARISON STUDY: None. FINDINGS: There is normal compressibility, flow, and augmentation within the bilateral lower extremity deep venous systems. Subcutaneous edema. IMPRESSION: No DVT within the right or left lower extremity. ACT 112: Negative or not required by law. Electronically signed by: Earl Gonzalez M.D. 03/25/2022 2:19 PM ECHO - LV systolic function is normal Borderline LA enlargement RV systolic pressure is normal No significant valvular heart disease PG Care Time/CCT Total # of Minutes Spent Total Time Spent with Patient: Total time spent is greater than 50% in coordination of care (as documented) at patient's floor/unit and/or counseling patient: Coding Level of Care Code 36899 Subseq Hosp Care Lvl 3 Diagnoses LGI bleed K92.2 Edema, peripheral R60.9 Dementia F03.90 Anemia D64.9 Anemia type: unspecified type GERD (gastroesophageal reflux disease) K21.9 Anxiety and depression F41.9; F32.9 Hyperlipidemia E78.5 Hypertension I10 Hypothyroidism E03.9 Type 2 diabetes mellitus E11.9 (1) Anemia Anemia type: unspecified type Qualified Code(s): D64.9 - Anemia, unspecified
[2022-03-25] MEDS ORDERED: POTASSIUM CHLORIDE CRTAB 20 MEQ TABCR PO STA ×2 (08:06→11:12)
[2022-03-25 08:37] LABS: Hematocrit (blood only) 29.7 % (34.1-44.9); Hemoglobin 9.6 g/dl (12.0-16.0); Mean Corpuscular Hemoglobin 28.5 pg (25.0-34.0); Mean Corpuscular Hgb Conc 32.3 g/dL (32.0-36.0); Mean Corpuscular Volume 88.1 fL (80.0-100.0); Platelet Count 286 K/uL (130-400); RDW Coefficient of Variation 15.7 % (11.5-14.5); RDW Standard Deviation 48.6 fL (36.4-46.3); Red Blood Count 3.37 M/uL (3.93-5.22); White Blood Count 7.62 K/ul (4.8-10.8)
[2022-03-25 08:56] LABS: Iron 37 mcg/dl (35-150); Total Iron Binding Cap Calc 294 mcg/dl (250-450); Transferrin (FE) Percent Satur 13 % (15-50); Unsaturated Iron Binding Cap 257 mcg/dl (155-355)
[2022-03-25 08:59] LABS: BUN Creatinine Ratio 4.5 (10-20); C Reactive Protein 1.22 mg/dl (0-0.5); Calcium 7.8 mg/dl (8.5-10.1); Creatinine Clr Calc Pharmacy 33.5 ml/min; Est GFR (African American) 43.6 ml/min; Est GFR (Non-African American) 37.6 ml/min; Magnesium 1.6 mg/dl (1.7-2.4); Potassium 3.4 mmol/L (3.5-5.1)
[2022-03-25] MEDS: INSULIN ASPART PER UNIT SC SCH ×4 (09:01→21:59)
[2022-03-25 09:18] LABS: Ferritin 114.6 ng/ml (8-388)
[2022-03-25] MEDS ORDERED: IRON SUCROSE 200 MG in 0.9 % SODIUM CHLORIDE 100 ML IV ONE (11:12)
[2022-03-25] MEDS ORDERED: FUROSEMIDE INJ 20 MG/2 ML VIAL IV ONE ×2 (11:12→17:00)
[2022-03-25] MEDS: MAGNESIUM SULFATE / D5W 1 GM/100 ML BAG IV SCH ×2 (12:38→15:27)
--- NOTE | 2022-03-25 14:21 | Ultrasound Report ---
BILATERAL LOWER EXTREMITY VENOUS DOPPLER HISTORY: Acute pain and swelling of the right lower leg r/o DVT COMPARISON STUDY: None. FINDINGS: There is normal compressibility, flow, and augmentation within the bilateral lower extremit y deep venous systems. Subcutaneous edema. IMPRESSION: No DVT within the right or left lower extremity. ACT 112: Negative or not required by law. Electronically signed by: Earl Gonzalez M.D. 03/25/2022 2:19 PM
--- NOTE | 2022-03-25 15:27 | XCELERA ---
[id number]
[2022-03-25] MEDS ORDERED: POTASSIUM CHLORIDE CRTAB 20 MEQ TABCR PO ONE (17:00)
[2022-03-26 07:49] LABS: Hemoglobin 9.3 g/dl (12.0-16.0); Mean Corpuscular Hemoglobin 28.7 pg (25.0-34.0); Mean Corpuscular Hgb Conc 33.2 g/dL (32.0-36.0); Mean Corpuscular Volume 86.4 fL (80.0-100.0); Mean Platelet Volume 10.2 fL (9.4-12.3); Platelet Count 249 K/uL (130-400); RDW Coefficient of Variation 15.6 % (11.5-14.5); RDW Standard Deviation 48.2 fL (36.4-46.3); Red Blood Count 3.24 M/uL (3.93-5.22); White Blood Count 5.94 K/ul (4.8-10.8)
[2022-03-26] MEDS: PANTOprazole 40 MG TAB PO SCH (08:01)
[2022-03-26] MEDS: SUCRALFATE 1 GM TAB PO SCH (08:01)
[2022-03-26] MEDS: LORATADINE 10 MG TAB PO SCH (08:01)
[2022-03-26] MEDS: LOSARTAN POTASSIUM 50 MG TAB PO SCH (08:01)
[2022-03-26] MEDS: ESCITALOPRAM OXALATE 20 MG TAB PO SCH (08:01)
[2022-03-26] MEDS: DONEPEZIL HCL 5 MG TAB PO SCH (08:01)
[2022-03-26] MEDS: ATORVASTATIN 10 MG TAB PO SCH (08:01)
[2022-03-26 08:36] LABS: Calcium 7.7 mg/dl (8.5-10.1); Creatinine Clr Calc Pharmacy 33.7 ml/min; Est GFR (Non-African American) 37.9 ml/min; Magnesium 1.7 mg/dl (1.7-2.4); Potassium 3.7 mmol/L (3.5-5.1)
--- NOTE | 2022-03-26 08:40 | Hospitalist Progress Note ---
Date of Service March 26, 2022 Assessment & Plan (1) LGI bleed: Plan: 77yo female with recent treatment for diverticulitis with Ciprofloxacin and Flagyl x 10 (PO at home, IV while inpatient, however had been continued Cipro/Flagyl at discharge this week -- WILL DC on MED REC) Presents with concern for LGIB --> two unformed BMs with melena, blood and clots. Hgb stable 9.6 on am labs Continue on protonix BID, carafate Checked Iron studies given patient previously given IV iron/Jehovah witness --> iron only 37, trans % sat low 13 --> venofer 200mg IV x 1 provided Had 2 BM subsequently yesterday, no further evidence of bleeding. ?if residual from diverticular bleed. Bleeding scan last admission negative this past week. EGD negative. Outpatient c-scope in 6 weeks given acute diverticulitis will need to be arranged (she states she had one in the past 2-3 years). Also should have f/u in discussions regarding cirrhosis, denied hx etoh use at all Of note, significant reason in addition to darkened stools, was patients weight/LE edema and SOB on exertion at discharge when she got home BNP elevated and suspect component of CHF as patient reported baseline weights ~140-145lb. S he was ~143lb on 03/12 as an outpatient, 73kg (160lb) on admission 03/17 and discharged at 166lb. --> On admission, weight 177lb . reported patient difficulty getting up steps at home with significant shortness of breath on exertion/inability to lay flat Given lasix 20mg IV x 1, K 3.4 on repeat labs without replacement ordered. I also checked a magnesium given hypokalemia and prior hypomagnesemia --Low at 1.6, IV replacement ordered --> Given dose of lasix 20IV x 1 this morning, additional 20mg IV this evening with PO Kcl supplementation Discussed with /patient, hgb likely higher than reported value and will monitor response with diuretics. could continue PO iron, but suspect body will regerate given prior Venofer infusions as well (2) Edema, peripheral: Plan: Possibly secondary to IVF given during hospitalization. No respiratory distress. BNP elevated 438, no hx CHF. ECHO w/o significant valvular disease, LA enlargement noted Did mention cirrhosis on prior admit imaging--> cirrhosis with mild ascites on CTAP noted. ALbumin levels low at 3 Daily weights ordered --> not yet obtained. Asking RN to obtain daily standing scale weights Patient w/ pain to palpation/edema --> no DVT proph last admission given GI bleeding. Also noted had not yet been out of bed or ever out of bed last admission --> Venous Doppler checked -- NEGATIVE for DVT Additional 20mg IV lasix provided this morning with PO K, additional 20mg IV this evening Needs further education on low salt diet/andrew given cirrhosis, and monitoring of weights at home. Consider PO lasix supplementation at discharge for next couple of days/prn, and repeat labs next week as patient/ hopeful for discharge tomorrow Monitor I&O (3) Dementia: Plan: Chronic, reported However, patient alert/oriented for me during encounter Continue donepezil on synthroid 5x/week given prior TSH low 0.028 outpatient last month and decreased to 50mcg but had pills for 75mcg and instructed to take 5x/week Repeat TSH wnl Will check B12 in AM as well (4) Anemia: Plan: Improving. Patient's symptoms concerning for LGIB on admission, vs possible resolving divericular bleed Hgb stable, no further bleeding reported Venofer x 1 as above, diuretics as outlined GI consulted -- no inpatient scope, outpatient scope in 6 weeks once out from acute diverticulitis (5) GERD (gastroesophageal reflux disease): Plan: Chronic. Stable -Protonix 40mg po BID continued, carafate added -- continue at d/c EGD 03/[address] Palencia (6) Anxiety and depression: Plan: Chronic. Stable -Continue Escitalopram (7) Hyperlipidemia: Plan: Chronic -Continue Atorvastatin (8) Hypertension: Plan: Chronic. BP controlled at present Continue Losartan 50mg po BID Lasix ordered as above Consider adding spironolactone/lasix for cirrhosis and volume management given response to lasix overnight/K on AM labs Would need close monitoring of kidney function/potassium if on losartan/spironolactone (9) Hypothyroidism: Plan: Chronic -Continue Synthroid 75mcg at home dosing (S/M/W/R/F) -- had reduced to 50mcg daily but had 75mcg pills and instructed to take 5x/week. Repeat TSH wnl -- continue current course as prescribed and will need new rx when out for new 50mcg tablets (10) Type 2 diabetes mellitus: Plan: Well controlled. Last [id number]=3.1 -ISS -Hold Metformin in patient and utilize SSI Plan continued inpatient stay diuretics as outlined, monitor response in AM possible d/c w/ PO lasix for volume management if no further bleeding Will need outpt GI in follow up for c-scope Admission and Anticipated Discharge Date Admission Date: March 23, 2022 Results & Data Results & Data ([facility]) Vital Signs (Past 12 Hours) Vital Signs Temp Pulse Resp BP Pulse Ox O2 Del Method 03/26/22 07:46 37.1 C 81 14 126/65 97 Room Air 03/25/22 21:24 36.8 C 54 L 18 124/63 96 Room Air Laboratory Results 03/26/22 03/26/22 03/26/22 Range/Units 08:19 06:58 06:58 WBC (4.8-10.8) K/ul RBC (3.93-5.22) M/uL Hgb (12.0-16.0) g/dl Hct (34.1-44.9) % MCV (80.0-100.0) fL MCH (25.0-34.0) pg MCHC (32.0-36.0) g/dL RDW Std Deviation (36.4-46.3) fL RDW Coeff of [place] (11.5-14.5) % Plt Count (130-400) K/uL MPV (9.4-12.3) fL Sodium 140 (136-145) mmol/L Potassium 3.7 (3.5-5.1) mmol/L Chloride 108 H (98-107) mmol/L Carbon Dioxide 24 (21-32) mmol/L Anion Gap 8 (3-11) BUN 8 (6-23) mg/dl Creatinine 1.33 H (0.6-1.2) mg/dl Est Cr Clr Drug Dosing 33.7 ml/min Est GFR ( Amer) 44.0 ml/min Est GFR (Non-Af Amer) 37.9 ml/min BUN/Creatinine Ratio 6.0 L (10-20) Glucose 101 H (70-99(Fasting)) mg/dl POC Glucose 103 H (70-99) mg/dl Calcium 7.7 L (8.5-10.1) mg/dl Magnesium 1.7 (1.7-2.4) mg/dl Iron (35-150) mcg/dl TIBC (250-450) mcg/dl Unsaturated IBC (155-355) mcg/dl Transferrin % Sat (15-50) % Ferritin (8-388) ng/ml C-Reactive Protein (0-0.5) mg/dl B-Natriuretic Peptide (0-100) pg/ml Vitamin B12 Pending Folate Pending TSH (0.300-4.500) uIu/ml Stool Occult Bld Scrn (Negative) 03/26/22 03/25/22 03/25/22 Range/Units 06:58 20:42 17:06 WBC 5.94 (4.8-10.8) K/ul RBC 3.24 L (3.93-5.22) M/uL Hgb 9.3 L (12.0-16.0) g/dl Hct 28.0 L (34.1-44.9) % MCV 86.4 (80.0-100.0) fL MCH 28.7 (25.0-34.0) pg MCHC 33.2 (32.0-36.0) g/dL RDW Std Deviation 48.2 H (36.4-46.3) fL RDW Coeff of [place] 15.6 H (11.5-14.5) % Plt Count 249 (130-400) K/uL MPV 10.2 (9.4-12.3) fL Sodium (136-145) mmol/L Potassium (3.5-5.1) mmol/L Chloride (98-107) mmol/L Carbon Dioxide (21-32) mmol/L Anion Gap (3-11) BUN (6-23) mg/dl Creatinine (0.6-1.2) mg/dl Est Cr Clr Drug Dosing ml/min Est GFR ( Amer) ml/min Est GFR (Non-Af Amer) ml/min BUN/Creatinine Ratio (10-20) Glucose (70-99(Fasting)) mg/dl POC Glucose 103 H 153 H (70-99) mg/dl Calcium (8.5-10.1) mg/dl Magnesium (1.7-2.4) mg/dl Iron (35-150) mcg/dl TIBC (250-450) mcg/dl Unsaturated IBC (155-355) mcg/dl Transferrin % Sat (15-50) % Ferritin (8-388) ng/ml C-Reactive Protein (0-0.5) mg/dl B-Natriuretic Peptide (0-100) pg/ml Vitamin B12 Folate TSH (0.300-4.500) uIu/ml Stool Occult Bld Scrn (Negative) 03/25/22 03/25/22 03/25/22 Range/Units 12:09 09:10 08:10 WBC (4.8-10.8) K/ul RBC (3.93-5.22) M/uL Hgb (12.0-16.0) g/dl Hct (34.1-44.9) % MCV (80.0-100.0) fL MCH (25.0-34.0) pg MCHC (32.0-36.0) g/dL RDW Std Deviation (36.4-46.3) fL RDW Coeff of [place] (11.5-14.5) % Plt Count (130-400) K/uL MPV (9.4-12.3) fL Sodium (136-145) mmol/L Potassium (3.5-5.1) mmol/L Chloride (98-107) mmol/L Carbon Dioxide (21-32) mmol/L Anion Gap (3-11) BUN (6-23) mg/dl Creatinine (0.6-1.2) mg/dl Est Cr Clr Drug Dosing ml/min Est GFR ( Amer) ml/min Est GFR (Non-Af Amer) ml/min BUN/Creatinine Ratio (10-20) Glucose (70-99(Fasting)) mg/dl POC Glucose 133 H (70-99) mg/dl Calcium (8.5-10.1) mg/dl Magnesium (1.7-2.4) mg/dl Iron (35-150) mcg/dl TIBC (250-450) mcg/dl Unsaturated IBC (155-355) mcg/dl Transferrin % Sat (15-50) % Ferritin (8-388) ng/ml C-Reactive Protein (0-0.5) mg/dl B-Natriuretic Peptide (0-100) pg/ml Vitamin B12 Folate TSH 1.587 (0.300-4.500) uIu/ml Stool Occult Bld Scrn Positive A (Negative) 03/25/22 03/25/22 03/25/22 Range/Units 08:10 08:10 08:10 WBC (4.8-10.8) K/ul RBC (3.93-5.22) M/uL Hgb (12.0-16.0) g/dl Hct (34.1-44.9) % MCV (80.0-100.0) fL MCH (25.0-34.0) pg MCHC (32.0-36.0) g/dL RDW Std Deviation (36.4-46.3) fL RDW Coeff of [place] (11.5-14.5) % Plt Count (130-400) K/uL MPV (9.4-12.3) fL Sodium 140 (136-145) mmol/L Potassium 3.4 L (3.5-5.1) mmol/L Chloride 109 H (98-107) mmol/L Carbon Dioxide 21 (21-32) mmol/L Anion Gap 10 (3-11) BUN 6 (6-23) mg/dl Creatinine 1.34 H (0.6-1.2) mg/dl Est Cr Clr Drug Dosing 33.5 ml/min Est GFR ( Amer) 43.6 ml/min Est GFR (Non-Af Amer) 37.6 ml/min BUN/Creatinine Ratio 4.5 L (10-20) Glucose 127 H (70-99(Fasting)) mg/dl POC Glucose (70-99) mg/dl Calcium 7.8 L (8.5-10.1) mg/dl Magnesium 1.6 L (1.7-2.4) mg/dl Iron 37 (35-150) mcg/dl TIBC 294 (250-450) mcg/dl Unsaturated IBC 257 (155-355) mcg/dl Transferrin % Sat 13 L (15-50) % Ferritin 114.6 (8-388) ng/ml C-Reactive Protein 1.22 H (0-0.5) mg/dl B-Natriuretic Peptide 300 H (0-100) pg/ml Vitamin B12 Folate TSH (0.300-4.500) uIu/ml Stool Occult Bld Scrn (Negative) PG Care Time/CCT Total # of Minutes Spent Total Time Spent with Patient: Total time spent is greater than 50% in coordination of care (as documented) at patient's floor/unit and/or counseling patient: Coding Diagnoses LGI bleed K92.2 Edema, peripheral R60.9 Dementia F03.90 Anemia D64.9 Anemia type: unspecified type GERD (gastroesophageal reflux disease) K21.9 Anxiety and depression F41.9; F32.9 Hyperlipidemia E78.5 Hypertension I10 Hypothyroidism E03.9 Type 2 diabetes mellitus E11.9 (1) Anemia Anemia type: unspecified type Qualified Code(s): D64.9 - Anemia, unspecified
[2022-03-26] MEDS ORDERED: FUROSEMIDE 40 MG TAB PO ONE (08:42)
[2022-03-26 08:51] LABS: Vitamin B12 337 pg/ml (180-914)
[2022-03-26] MEDS ORDERED: MAGNESIUM OXIDE 400 MG TAB PO SCH (09:00)
[2022-03-26] MEDS: INSULIN ASPART PER UNIT SC SCH ×2 (09:09→13:21)
[2022-03-26] MEDS ORDERED: CYANOCOBALAMIN (B-12) 500 MCG TABLET PO SCH (12:00)
[2022-03-26] MEDS ORDERED: POTASSIUM CHLORIDE CRTAB 20 MEQ TABCR PO STA (12:07)
--- NOTE | 2022-03-26 12:08 | Discharge Summary ---
Date of Service March 26, 2022 Admission HPI Per Admitting Provider Chanelle French is a 77yo female with history of HTN, HLP, GERD, and Hypothyroidism presenting with possible LGIB as well as edema. Patient was recently admitted to [facility] from 03/17/22 - 03/22/22 for progressive weakness, nausea and vomiting. She has been treated for acute diverticulitis with a 10 day course of Ciprofloxacin 500mg pO BID and Flagyl 500mg po q 8 hours which started on 03/12/22. During her hospitalization she was found to have a UTI as well as concern for UGIB. She had an EGD performed by Dr. Palencia on 03/17/22 which was normal. No colonoscopy performed due to active diverticulitis. Patient had been NPO and on clear liquid diet during her hospital stay. She was discharged home on 03/22/22. Patient arrived home at 17:30. Her made her some toast. At 20:00 she had a BM that was not formed, she noted some bright red blood as well as some clots. She went to bed around 20:45. At 21:00 she had some nausea and vomited up her toast. No blood hematemesis or coffee ground material noted. Patient woke up overnight and had another dark colored bowel movement at 03:00. She woke this morning and was feeling weak. She had a hard time walking up the stairs due to weakness and BOLANOS. Her noted some significant bilateral LE edema as well as some abdominal distention. He also noted that her discharge weight was noted to be 166#. Her baseline weight is typically 140 - 145#. Patient's PCP called during the day and instructed patient to return to the ER for further evaluation. Patient and also discussed symptoms with friends that instructed her to come to the ER as well. Patient endorses edema, abdominal bloating as well as SOB and BOLANOS. She has no additional nausea. No abdominal pain. Denies fever, chills, cough. No additional complaints at this time. Patient is a Jehova's witness and will not accept transfusion of blood products. reports that her Hgb on 03/20 was 7.7 which increased to 8.3 on 03/22 after IV iron infusion ER Course: Ceftriaxone, Protonix Admission Exam Per Admitting Provider General: patient resting comfortably, NAD, non-toxic in appearance, AA&O x 4 Skin: warm, dry, intact, no rashes or lesions HEENT: NC/AT, PERRL, EOMI, anicteric sclera, conjunctiva without injection, external ear normal to inspection and nontender, nares patent, moist mucus membranes, dentition intact, no oropharyngeal lesions, neck supple, trachea midline, no LAD, no thyromegaly, no JVD Heart: +S1/S2, regular, no m/r/g Lungs: equal air entry bilaterally, crackles in bilateral bases, no rhonchi or wheezes Abd: +BS, soft, ND, mild tenderness in LLQ without rebound/guarding or peritonitis, no masses/organomegaly/ascites Ext: warm, 2+ pulses in UE/LE bilaterally, no clubbing/cyanosis, 2+ non-pitting edema of bilateral LE Neuro: nonfocal, patient AA&O x 4, speech intact, no facial droop, moving all extremities on command with equal strength 5/5 Principal Diagnosis Volume Overload, GI bleeding Discharge Exam General: WD/WN elderly female sitting up in bed, at bedside, NAD HEENT: head normocephalic, atraumatic, mmm, trachea midline, eyes anicteric Resp: CTAB, diminished in the bases, 97% on RA CV: RRR, no m/r/g, decreased edema to b/l LE, NO calf tenderness GI: +BS, less distension, nontender to palpation MSK/Neuro: moves extremities, no focal deficit Skin: cool, dry Psych: AOx3, cooperative Discharge Data Allergies Allergy/AdvReac Type Severity Reaction Status Date / Time bee venom protein (honey bee) Allergy Severe SWELLS UP Verified 03/23/22 16:28 cefazolin Allergy Severe SHORTNESS Verified 03/23/22 16:28 OF BREATH adhesive Allergy Intermediate HIVES WITH Verified 03/23/22 16:28 TAPE azithromycin Allergy Unknown Unknown Verified 03/23/22 16:28 candesartan AdvReac Intermediate cough Verified 03/23/22 16:28 enalapril AdvReac Intermediate cough Verified 03/23/22 16:28 lisinopril AdvReac Intermediate COUGH Verified 03/23/22 16:28 morphine AdvReac Intermediate ABNORMAL Verified 03/23/22 16:28 DREAMS/PASSED OUT nitroglycerin AdvReac Intermediate GI SYMPTOMS Verified 03/23/22 16:28 Consultations 03/23/22 18:06 ED Decision to Admit Stat 03/23/22 23:30 Consult Gastroenterology Routine Ordered Studies Chest X-Ray 03/23/22 14:42 XR chest 1V portable CLINICAL HISTORY: Swelling. Fluid retention. COMPARISON STUDY: Chest radiograph March 17, 2022. FINDINGS: Loop recorder is incidentally noted. Mild elevation of the right hemidiaphragm is unchanged. Minimal left basilar opacity favors atelectasis. There is no pneumothorax or pleural effusion. Cardiac size is normal. Mediastinal contours are normal. There is no evidence for pulmonary edema. IMPRESSION: No acute cardiopulmonary findings. ACT 112: Negative or not required by law. Electronically signed by: Keith Scruggs M.D. 03/23/2022 3:23 PM Venous Doppler Study 03/25/22 11:39 BILATERAL LOWER EXTREMITY VENOUS DOPPLER HISTORY: Acute pain and swelling of the right lower leg r/o DVT COMPARISON STUDY: None. FINDINGS: There is normal compressibility, flow, and augmentation within the bilateral lower extremity deep venous systems. Subcutaneous edema. IMPRESSION: No DVT within the right or left lower extremity. ACT 112: Negative or not required by law. Electronically signed by: Earl Gonzalez M.D. 03/25/2022 2:19 PM ECHO 03/25/22 Left ventricular systolic function is normal. Borderline left atrial enlargement Right ventricular systolic pressure is normal No significant valvular heart disease Hospital Course (1) LGI bleed: 77yo female with recent treatment for diverticulitis with Ciprofloxacin and Flagyl x 10 (PO at home, IV while inpatient, however had been continued Cipro/Flagyl at discharge this week -- WILL DC on [facility]) Presents with concern for LGIB --> two unformed BMs with melena, blood and clots. hgb stable on admit, however weight SIGNIFICANTLY ELEVATED Continued on protonix BID, carafate Checked Iron studies given patient previously given IV iron/Jehovah witness --> iron only 37, trans % sat low 13 --> venofer IV provided, can have additional w/ PCP in follow up if CBC on repeat still low with diuretics 2BM during inpatient stay, no further lenny bleeding. did have +fecal occult. No increased abd pain/fever/leukocytosis, no concern for continued diverticulitis ?if residual from diverticular bleed. Bleeding scan last admission negative this past week. EGD negative. Outpatient c-scope in 6 weeks given acute diverticulitis will need to be arranged (she states she had one in the past 2-3 years). Also should have f/u in discussions regarding cirrhosis, denied hx etoh use at all B12 low normal, PO supplementation started and continued at discharge Of note, significant reason in addition to darkened stools, was patients weight/LE edema and SOB on exertion at discharge when she got home BNP elevated and suspect component of CHF as patient reported baseline weights ~140-145lb. S he was ~143lb on 03/12 as an outpatient, 73kg (160lb) on admission 03/17 and discharged at 166lb. --> On admission, weight 177lb . reported patient difficulty getting up steps at home with significant shortness of breath on exertion/inability to lay flat Given Lasix 20mg IV x 1, K 3.4 on repeat labs without replacement ordered. I also checked a magnesium given hypokalemia and prior hypomagnesemia --Low at 1.6, IV replacement ordered --> Given Lasix 20mg IV BID on 03/25, additional PO K supplementation, additional dose 40mg PO lasix given AM 03/26 Weight 161.4 kg on repeat labs this morning Continued Lasix 20mg PO daily at discharge, monitoring of weights/low sodium diet at discharge and additional dosing as needed Repeat CBC/BMP on Monday and follow up with PCP Outpatient scope with GI in ~6 weeks once resolved from recent diverticulitis Abx cancelled from meds at d/c given completed >10 day course (2) Edema, peripheral: Possibly secondary to IVF given during hospitalization. No respiratory distress. BNP elevated 438, no hx CHF. ECHO w/o significant valvular disease, LA enlargement noted Did mention cirrhosis on prior admit imaging--> cirrhosis with mild ascites on CTAP noted. ALbumin levels low at 3 Venous Doppler obtained given immobilization last week/never out of bed and had pain w/ palpation --> NEGATIVE Mag replacement, resolution of pain/cramping Lasix as above, edema much improved, weights back to baseline ~161lb (baseline 160-165lb) Continue Lasix 20mg PO daily at discharge/monitoring weights, low sodium diet Consider additional of spironolactone outpatient in f/u with GI for cirrhosis/volume management (3) Dementia: Chronic, reported However, patient alert/oriented for me during encounter Continue donepezil on synthroid 5x/week given prior TSH low 0.028 outpatient last month and decreased to 50mcg but had pills for 75mcg and instructed to take 5x/week Repeat TSH wnl B12 low normal, supplementation started and continued at discharge (4) Anemia: Improving. Patient's symptoms concerning for LGIB on admission, vs possible resolving diverticular bleed Hgb stable, no further bleeding reported Venofer x 1 as above, diuretics as outlined GI consulted -- no inpatient scope, outpatient scope in 6 weeks once out from acute diverticulitis (5) GERD (gastroesophageal reflux disease): Chronic. Stable PPI/carafate EGD 03/[address] Palencia (6) Anxiety and depression: Chronic. Stable -Continued Escitalopram (7) Hyperlipidemia: Chronic -Continued Atorvastatin (8) Hypertension: Continued Losartan 50mg po BID, Lasix as outlined above DISCONTINUED AMLODIPINE to prevent worsening edema, also started Lasix 20mg PO to be continued at discharge BP 126/65 prior to d/c (9) Hypothyroidism: Chronic Continue Synthroid 75mcg at home dosing (S/M/W/R/F) -- had reduced to 50mcg daily but had 75mcg pills and instructed to take 5x/week. Repeat TSH wnl -- continue current course as prescribed and will need new rx when out for new 50mcg tablets in follow up with PCP (10) Type 2 diabetes mellitus: Well controlled. Last GnhI8S=3.1 BSGs acceptable continue metformin at discharge Plan PT/OT consulted --> CM arranged for home health therapy Weight back to baseline No further bleeding/abdominal pain Hgb stable, continue diuretics Total Time Total Time Spent Total Time Spent (In Minutes): 60 Discharge Plan Discharge Items Patient Disposition: Home - Home Health Services Reason For Visit: LGIB Discharge Diagnosis: Anemia, Volume Overload Goals: You have been hospitalized for an acute medical problem. During your stay at [facility], we have made an effort to correct the problem that brought you to the hospital while keeping you as comfortable as possible. Medications were used to bring your condition under control and your discharge instructions will include directions for any medications you should take after leaving the hospital. Please make sure you see your Primary Care Provider as part of your follow up plan. Activity: As commented below Non-emergency contact: Primary Care Provider and Dental Billing Specialist Call non-emergency contact if: you have any medication questions, your symptoms worsen, your pain is not controlled and you have a fever Follow-up/Referrals: Conner Palencia DO [Physician] - (5 weeks) Candis Lee DO [Primary Care Provider] - Diet: Carb Consistent or DM2, Heart Healthy and Low Sodium (2gm) Ambulatory Orders: Basic Metabolic Panel (Routine) Timeframe: 2 Days Location: Determined by Patient Ordered By: Erlinda Acosta Complete Blood Count no Diff (Routine) Timeframe: 2 Days Location: Determined by Patient Ordered By: Erlinda Acosta Magnesium (Routine) Timeframe: 2 Days Location: Determined by Patient Ordered By: Erlinda Acosta Addtl Attending Provider Instructions: You have been hospitalized for blood in the stool. Your hemoglobin has been stable and this could have been residual bleeding from recent diverticulitis or blood from hemorrhoids. We checked iron stores and these were low. I did give you some IV iron while in the hospital but you got IV iron last admission and sometimes this takes a little bit of time to take effect. You can further discuss IV Venofer (iron) infusions with your primary care if repeat labs on monday still show borderline anemia, however as discussed I do believe a large component of the shortness of breath and lower leg edema was from excessive IV fluids last admission given significant weight gain. Your ultrasound of the heart did not show any significant valvular heart disease as cause for volume overload. Your weight/edema has improved with IV lasix and you were given an additional dose by mouth this morning. We are going to continue you on lasix 20mg by mouth daily at discharge, and you should continue to monitor your weights daily at home. Take an additional dose of 20mg lasix as needed for weight gain >3lb in a 24 hour period or >5lb in a week and contact your primary care provider in that event. I have STOPPED the amlodipine for blood pressure as this can cause increased leg swelling and would want to prevent your blood pressure dropping too low. You have not gotten this while you have been in the hospital. Please follow up with GI for outpatient colonoscopy after the guidelines for the 6 weeks after your recent acute diverticulitis and should continue low fiber diet and advance as tolerated with avoidance of nuts in the meantime given prior dietary indiscretions. Your magnesium was also low during inpatient stay and this could be due to the pantoprazole use, and you have been started on daily oral magnesium. Please follow up with your primary care provider in the next 7-10 days to monitor your progress after discharge. Please return to the emergency department with any increased bleeding, abdominal pain, shortness of breath, fevers, or for any other symptoms concerning for you. It has been a pleasure being a part of the medical team providing for you while you have been in the hospital. Take care! Pending Studies at Discharge: No Stand-Alone Forms: My [facility], Smoking Cessation Medications and DC Order Prescriptions: New magnesium oxide 400 mg (241.3 mg magnesium) Tablet 400 mg PO QAM Qty: 30 0RF cyanocobalamin (vitamin B-12) 500 mcg Tablet 1,000 mcg PO QAM Qty: 30 0RF furosemide [Lasix] 20 mg tablet 20 mg PO DAILY Qty: 30 0RF Continued multivitamin tablet 1 tab PO QAM (DME) OneTouch Verio test strips Strip See Rx Instructions .ROUTE .MEDSUPPLY Qty: 50 11RF Rx Instructions: Testing blood sugar twice daily donepezil 5 mg tablet 5 mg PO DAILY Qty: 90 1RF loratadine 10 mg tablet 10 mg PO QAM Qty: 90 3RF atorvastatin 10 mg tablet 10 mg PO DAILY Qty: 90 3RF losartan 50 mg tablet 50 mg PO BID Qty: 180 1RF levothyroxine [Synthroid] 75 mcg tablet See Rx Instructions .ROUTE .COMPLEX Qty: 90 1RF Rx Instructions: Take 1 tab PO daily, 5 days per week; (DME) lancets [OneTouch Delica Lancets] 33 gauge misc See Rx Instructions .ROUTE .MEDSUPPLY Qty: 100 3RF Rx Instructions: Testing blood sugar twice daily metformin 500 mg tablet 500 mg PO DAILY Qty: 90 3RF escitalopram oxalate 20 mg tablet 20 mg PO QAM Qty: 90 3RF Proair Digihaler 90 mcg/actuation aero powdr breath act w/sensor 2 inh inhalation Q6H Qty: 1 3RF cholecalciferol (vitamin D3) 1,000 unit capsule 1,000 units PO QAM omeprazole 40 mg capsule,delayed release(DR/EC) 40 mg PO BID Qty: 60 0RF sucralfate 1 gram tablet 1 g PO BID 56 Days Qty: 112 0RF Discontinued amlodipine 10 mg tablet 10 mg PO DAILY Qty: 90 1RF ciprofloxacin HCl [Cipro] 500 mg tablet 500 mg PO Q12H Qty: 20 0RF Rx Instructions: STARTED 03/12/22 FOR 10 DAYS, UNSURE IF STILL TAKING. No Action (DME) lancets misc See Dose Instructions .ROUTE .MEDSUPPLY Qty: 50 0RF Dose Instruction: As directed Rx Instructions: As directed 33G (DME) blood sugar diagnostic Strip See Dose Instructions .ROUTE .MEDSUPPLY Qty: 100 1RF Dose Instruction: As directed Rx Instructions: Testing 2 times daily Discharge Orders: Discharge Order (Routine); Ordered 03/26/22 Ordered By: Erlinda Acosta Admission Data Admit Date/Time: 03/23/22 20:19 Attending Provider: Macey Padilla Admit Provider: Renate Salguero Primary Care Provider: Candis Lee Other Providers: Edvin Moya ; Conner Palencia Other Interventions: Discharge Summary Assessment (RN) Last Done: 03/26/22 15:59 Supervising Physician Co-Signing Physician Notes PA Supervision Note: I personally saw and examined the patient. I verified all howell points and agree with SHAILA Acosta with the following exceptions and/or additions: S-Pt feeling much better, less swelling in legs, no BOLANOS. No bloody stools. Very grateful for recent care here in hospital. O- Vitals reviewed Gen: [AAOx3, NAD] HEENT: [anicteric sclerae, EOMI] CV: [RRR no mgr nl S1S2, 2+ pitting edema legs bilat to knees] Pulm: [mild bibasilar crackles] Abd: [+BS soft NT ND no masses or hernias] Ext: [ 2+ DP pulses] Skin: [no rashes, warm/dry] Neuro: [full strength throughout] A/P-77 yo female here with recent GIB and acute diverticulitis, now with volume overload from copious IVFs from previous hospitalization. Diuresed and improving. COntinue po lasix on discharge, f/u with GI for colonoscopy Plan outlined as above Coding Level of Care Code D/C DAY MANAGEMENT >30 MINS Diagnoses LGI bleed K92.2 Edema, peripheral R60.9 Dementia F03.90 Anemia D64.9 Anemia type: unspecified type GERD (gastroesophageal reflux disease) K21.9 Anxiety and depression F41.9; F32.9 Hyperlipidemia E78.5 Hypertension I10 Hypothyroidism E03.9 Type 2 diabetes mellitus E11.9
--- NOTE | 2022-04-06 08:12 | Coding Query ---
CONGESTIVE HEART FAILURE To Promote full compliance with coding requirements relating to patient care, physician participation is requested in all cases of remote inpatient coder uncertainty. Please assist us with the following questions. A diagnosis of CHF/Congestive Heart Failure is documented in the patient's medical record in the 03/25 Progress Note to Discharge Summary. To accurately code this diagnosis and to compare patient severity, we ask that you specify the type of heart failure by placing an X within the parenthesis (x). ( ) SYSTOLIC HEART FAILURE (HFrEF). PLEASE SPECIFY FURTHER BELOW: ( ) Acute ( ) Chronic ( ) Acute on Chronic ( ) Rheumatic ( ) Unknown ( x ) DIASTOLIC HEART FAILURE (HFpEF). PLEASE SPECIFY FURTHER BELOW: ( ) Acute ( ) Chronic ( x) Acute on Chronic ( ) Rheumatic ( ) Unknown ( ) COMBINED SYSTOLIC AND DIASTOLIC HEART FAILURE. PLEASE SPECIFY FURTHER BELOW: ( ) Acute ( ) Chronic ( ) Acute on Chronic ( ) Rheumatic ( ) Unknown ( ) UNSPECIFIED/UNKNOWN TYPE OF CHF ( ) CHF is RULED OUT Was the CHF Present On Admission? Please check the appropriate box: ( ) Present on Admission ( ) Not Present On Admission ( ) Clinically undetermined Thank you Claudette DAVIS
--- NOTE | 2022-04-06 08:17 | Coding Query ---
CODING QUERY To promote full compliance with coding requirements relating to patient care, provider participation is requested in all cases of shuttle driver uncertainty. Please assist us with the question(s) below: Coding Question(s): Please specify below, in your clinical opinion, the diagnosis most responsible for occasioning the Inpatient admission: ( x ) Fluid Overload. Please specify further, in your clinical opinion, the most likely cause of the Fluid Overload: ( ) IVF Fluids given during the last admit - not causing CHF ( x) IVF Fluids given during the last admit - causing CHF ( ) Cirrhosis ( ) Other: Please Specify ( ) GI Bleeding ( ) Other: Please Specify Physician's Response(s): Thank you Claudette Miller Principal Diagnosis: "that condition established after study, to be chiefly responsible for occasioning the admission of the patient to the hospital for care." Co-Existing Principal Diagnosis: "when two or more diagnoses equally meet the criteria for principal diagnosis as determined by the circumstances of admission, diagnostic work up, and/or therapy provided, and the Alphabetic Index, Tabular List, or another coding guideline does not provide sequencing direction, any one of the diagnoses may be sequenced first." "When the physician has documented what appears to be a current diagnosis in the body of the record, but has not included the diagnosis in the final diagnostic statement, the physician should be asked whether the diagnosis should be added." (Source Coding Clinic 2 QTR90. p3-4) SUSAN
== END 2022-03-26 16:38 | disposition home health service (06) | DRG 291 ==
LOC: ED 13:02 → SUATTDRO 20:19 → INTOOBSV 20:19 → 3E 20:19

== ENCOUNTER 2023-06-12 11:26 | Observation (INO) ==
--- NOTE | 2023-06-12 11:50 | Emergency Department Note ---
Impression & Plan Falls frequently, Cough, Weakness ED Provider Note NAME: ESTEPHANIE LYNN AGE: 78 SEX: F : 1945 ARRIVES VIA: Ambulance INFORMANT: Patient, EMS, the patient's significant other ED PROVIDER(S): Kwame Pelayo DO CHIEF COMPLAINT: Head injury HPI: The patient is an 78-year-old female who presented to the emergency department by ambulance after fall. The patient fell backwards striking the back of her head. At this time she states she does have a slight headache but denies having any hip pain or back pain. The patient denies having any fever or recent cough. The patient according to EMS has been falling more frequently. Patient denies having any hip pain. ROS: See above HPI for pertinent positives & negatives. A total of 10 systems reviewed and were otherwise negative. PAST MEDICAL HISTORY: See Below PAST SURGICAL HISTORY: See Below FAMILY HISTORY: See Below SOCIAL HISTORY: See Below HOME MEDICATIONS: See Below ALLERGIES: See Below VITALS: See Below PHYSICAL EXAMINATION: GENERAL: Patient is awake alert in no acute distress patient is resting comfortably and showing no signs of anxiety EYES: The conjunctivae are clear. The pupils are round and reactive. EARS, NOSE, MOUTH AND THROAT: The nose is without any evidence of any deformity. NECK: The neck is nontender and supple. RESPIRATORY: Normal respiratory effort is noted there is no evidence of wheezing rhonchi or rales CARDIOVASCULAR: Regular rate and rhythm noted there no murmurs rubs or gallops normal S1 normal S2. GASTROINTESTINAL: The abdomen is soft. Abdomen is nontender. BACK: Lower lumbar tenderness was noted to palpation. There is no step-off. MUSCULOSKELETAL/EXTREMITIES: There is no evidence of gross deformity full range of motion is noted in the hips and shoulders. SKIN: There is no obvious evidence of any rash. There are no petechiae, pallor or cyanosis noted. NEUROLOGIC: Patient is awake alert and oriented to person place and situation. She was not oriented to time.. Strength was symmetric but diminished. MEDICAL DECISION MAKING: The patient is an 78-year-old female who presented to the emergency department after a fall. The patient does have some underlying dementia but was neurologically intact. The patient's had frequent falls recently. Further at history was obtained from the patient's significant other once he arrived. It sounds though she has been having difficulty ambulating. This appears to be becoming more frequently. I did not find any acute traumatic injury on the patient during her workup in the emergency department. I discussed the patient's condition with her and her significant other. At this time I do feel the patient may not be safe for discharge given her frequent falls. [facility] She may require further inpatient management as well as rehabilitation. Triage Nursing notes reviewed. Prior medical records reviewed Vital Signs: reviewed and remarkable for no significant abnormalities Differential diagnosis: Infection, dehydration, metabolic abnormality, hypo/hyperglycemia, electrolyte disturbance, anemia, hypoxia, cardiac sources, intracerebral event, toxicologic, neurologic, as well as other pathologies. ER treatment provided: See below Diagnostics interpreted by me: ECG: EKG was obtained in the emergency department. My interpretation is sinus rhythm at 63 bpm. PACs were noted. There is no acute ST segment abnormalities noted. This was compared to a tracing from March 23, 2022. No changes were noted Cardiac Monitoring: An order was placed for continuous cardiac monitoring. The monitor shows a rate of 76 bpm with sinus rhythm. Laboratory studies: As stated above and show below. Imaging studies: See below. Radiographic imaging was reviewed by myself Consultation(s): Dr. Persaud who is the [facility] hospitalist was notified about the patient. He will evaluate the patient in the emergency department. Past Med/Surg History Medical History (Updated 06/12/23 @ 15:05 by Walter Cottrell MD) Refusal of blood transfusions as patient is Hinduism Seasonal allergies mild Implantable loop recorder present follows w/ Dr Milian last visit 02/2022 History of syncope hx- no issues in years ADMITTED [facility] 12/31/18-EKG/ECHO /HOLTER MONITOR-NO DIAGNOSIS PER PT- Cirrhosis LGI bleed 03/2022 admitted co Acute upper GI bleed Dementia Anemia Nausea and vomiting after administration of anesthetic agent Asthma mild, rarley uses inhaler GERD (gastroesophageal reflux disease) Anxiety and depression Hyperlipidemia Lumbar spinal stenosis TMJ syndrome Type 2 diabetes mellitus Hypothyroidism Hypertension Surgical History History of esophagogastroduodenoscopy (EGD) Hx of colonoscopy Status post total hip replacement, 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) S/P total hysterectomy and bilateral salpingo-oophorectomy S/P tonsillectomy S/P cholecystectomy S/P appendectomy Family History Father Hypertension Myocardial infarction Diabetes Coronary heart disease Sister Coronary heart disease Mother Diabetes Myocardial infarction Coronary heart disease Hypertension Denies family history of Ovarian cancer Prostate cancer Breast cancer Colorectal cancer Social History Smoking Status: Never smoker Second Hand Exposure: No; Do You Dip or Chew Tobacco: No; Hx Alcohol Use: No Hx Substance Use: No Preferred Language: Mohawk Communication Ability: Effective Visual Impairment: Limited Hearing Ability: Normal Fox Farmer Required: No Beliefs That Will Affect Care: Jew Jew Beliefs: Hinduism- NO BLOOD PRODUCTS TO BE GIVEN TO PT marital status: Current Living Situation: Spouse current occupational status: retired Feels Safe at Home: Yes Childhood Exposure to Second-Hand Smoke: No Diet: regular Diet Comment: regular caffeine: No during the past year weight has: remained stable Dental Care, Regularly: Yes Physical Activity Frequency: 1-2 Times per Week Seatbelt Use: always Sunscreen Use: Yes Assistive Devices: Cane and Glasses Allergies Allergies Allergy/AdvReac Type Severity Reaction Status Date / Time bee venom protein (honey bee) Allergy Severe SWELLS UP Verified 06/01/23 13:07 cefazolin Allergy Severe SHORTNESS Verified 06/01/23 13:07 OF BREATH adhesive Allergy Intermediate HIVES WITH Verified 06/01/23 13:07 TAPE azithromycin Allergy Unknown Unknown Verified 06/01/23 13:07 candesartan AdvReac Intermediate cough Verified 06/01/23 13:07 enalapril AdvReac Intermediate cough Verified 06/01/23 13:07 lisinopril AdvReac Intermediate COUGH Verified 06/01/23 13:07 morphine AdvReac Intermediate ABNORMAL Verified 06/01/23 13:07 DREAMS/PASSED OUT nitroglycerin AdvReac Intermediate GI SYMPTOMS Verified 06/01/23 13:07 Home Meds Home Medications Medication Instructions Recorded Confirmed multivitamin 1 tab PO QAM 12/17/18 06/12/23 cholecalciferol (vitamin D3) 25 1,000 units PO QAM 04/04/19 06/12/23 mcg (1,000 unit) capsule Previous Rx's Medication Instructions Recorded lancets #50 ea 12/17/18 blood sugar diagnostic #100 ea 05/31/19 cyanocobalamin (vitamin B-12) 500 1,000 mcg (2 x 500 mcg) PO QAM #30 03/26/22 mcg tablet tabs atorvastatin 10 mg tablet 10 mg PO DAILY #100 tabs 08/17/22 albuterol sulfate 90 mcg/actuation 2 inh inhalation Q6H cough #1 ea 08/23/22 breath activated powder inhaler,sensor (Proair Digihaler) donepezil 5 mg tablet 5 mg PO DAILY #90 tabs 09/22/22 lancets 33 gauge ([facility] #[facility] ea 09/28/22 Lancets) sodium chloride, sodium See Rx Instructions .Route 11/18/22 bicarb-nasal rinse squeeze bottle .COMPLEX #50 ea with packet (Neilmed Sinus Rinse Complete with packet) metformin 500 mg tablet 500 mg PO DAILY #100 tabs 11/21/22 pantoprazole 40 mg tablet,delayed 40 mg PO BID #60 tabs 12/19/22 release (Protonix) magnesium oxide 400 mg (241.3 mg 400 mg PO TID #90 tabs 12/30/22 magnesium) tablet potassium chloride 10 mEq 10 meq PO DAILY #30 tabs 01/04/23 tablet,extended release blood sugar diagnostic (OneTouch #50 ea 01/17/23 Verio test strips) cetirizine 10 mg tablet (Zyrtec) 10 mg PO DAILY allergy symptoms 01/26/23 #90 tabs Synthroid 75 mcg tablet 75 mcg PO DAILY #30 tabs 02/20/23 (levothyroxine) escitalopram oxalate 20 mg tablet 20 mg PO QAM #90 tabs 05/24/23 amlodipine 5 mg tablet 5 mg PO DAILY #30 tabs 06/01/23 furosemide 20 mg tablet (Lasix) 20 mg PO DAILY #30 tabs 06/01/23 Results & Data (ED) Vital Signs Vital Signs - 24 hr 06/12/23 11:34 06/12/23 11:43 06/12/23 12:02 Temperature 36.5 C Temperature Source Oral Pulse Rate 68 74 68 Pulse Rate from SpO2 Sensor 73 Respiratory Rate 20 19 Respiratory Effort / Characteristics Non-Labored Spontaneous Respiratory Depth Normal Respiratory Pattern Regular Blood Pressure 150/89 H Blood Pressure Mean 109 Pulse Oximetry 98 96 Oxygen Delivery Method Room Air Sepsis Recent Fever Within 48 Hours No Sepsis New/Unexplained Change in Mental Status N/A Sepsis Action Taken by Nursing No Action Required 06/12/23 12:10 06/12/23 12:30 06/12/23 12:30 Temperature Temperature Source Pulse Rate 77 63 Pulse Rate from SpO2 Sensor 61 60 Respiratory Rate 15 19 Respiratory Effort / Characteristics Respiratory Depth Respiratory Pattern Blood Pressure 134/80 Blood Pressure Mean 97 Pulse Oximetry 97 95 Oxygen Delivery Method Sepsis Recent Fever Within 48 Hours Sepsis New/Unexplained Change in Mental Status Sepsis Action Taken by Nursing 06/12/23 13:00 06/12/23 13:00 06/12/23 13:30 Temperature Temperature Source Pulse Rate 65 Pulse Rate from SpO2 Sensor 60 Respiratory Rate 24 Respiratory Effort / Characteristics Respiratory Depth Respiratory Pattern Blood Pressure 138/61 135/65 Blood Pressure Mean 111 108 Pulse Oximetry 96 Oxygen Delivery Method Sepsis Recent Fever Within 48 Hours Sepsis New/Unexplained Change in Mental Status Sepsis Action Taken by Nursing 06/12/23 13:30 06/12/23 14:00 06/12/23 14:00 Temperature Temperature Source Pulse Rate 65 71 Pulse Rate from SpO2 Sensor 61 60 Respiratory Rate 29 H 19 Respiratory Effort / Characteristics Respiratory Depth Respiratory Pattern Blood Pressure 136/97 Blood Pressure Mean 100 Pulse Oximetry 93 96 Oxygen Delivery Method Sepsis Recent Fever Within 48 Hours Sepsis New/Unexplained Change in Mental Status Sepsis Action Taken by Nursing 06/12/23 14:30 06/12/23 14:30 06/12/23 15:00 Temperature Temperature Source Pulse Rate 66 91 H Pulse Rate from SpO2 Sensor 59 L 66 Respiratory Rate 21 25 H Respiratory Effort / Characteristics Respiratory Depth Respiratory Pattern Blood Pressure 139/72 Blood Pressure Mean 86 Pulse Oximetry 96 93 Oxygen Delivery Method Sepsis Recent Fever Within 48 Hours Sepsis New/Unexplained Change in Mental Status Sepsis Action Taken by Nursing 06/12/23 15:02 06/12/23 15:02 Temperature Temperature Source Pulse Rate 76 Pulse Rate from SpO2 Sensor 68 Respiratory Rate 17 Respiratory Effort / Characteristics Respiratory Depth Respiratory Pattern Blood Pressure 145/73 H Blood Pressure Mean 111 Pulse Oximetry 96 Oxygen Delivery Method Sepsis Recent Fever Within 48 Hours Sepsis New/Unexplained Change in Mental Status Sepsis Action Taken by [facility] Medications Current Medication List: was personally reviewed by me Laboratory Data Attestation: I reviewed the patient's lab results. 06/12/23 11:45 06/12/23 11:45 Lab Results 06/12/23 06/12/23 06/12/23 Range/Units 11:45 12:59 13:40 WBC 5.90 (4.8-10.8) K/ul RBC 4.14 L (4.20-5.40) M/uL Hgb 12.8 (12.0-16.0) g/dl Hct 38.4 (37.0-47.0) % MCV 92.8 (80.0-100.0) fL MCH 30.9 (25.0-34.0) pg MCHC 33.3 (32.0-36.0) g/dL RDW Std Deviation 42.8 (36.4-46.3) fL RDW Coeff of [place] 12.6 (11.5-14.5) % Plt Count 202 (130-400) K/uL MPV 10.8 (9.4-12.4) fL Immature Gran % (Auto) 0.2 % Neut % (Auto) 71.6 % Lymph % (Auto) 19.0 % [place] % (Auto) 5.8 % Eos % (Auto) 2.9 % Baso % (Auto) 0.5 % Neut # (Auto) 4.23 (1.40-6.50) K/uL Lymph # (Auto) 1.12 L (1.20-3.40) K/uL [place] # (Auto) 0.34 (0.11-0.59) K/uL Eos # (Auto) 0.17 (0.00-0.50) K/uL Baso # (Auto) 0.03 (0.00-0.20) K/uL Immature Gran # (Auto) 0.01 (0.01-0.20) K/uL PT Cancelled 11.9 INR Cancelled 1.1 APTT Cancelled 26 PTT Ratio Cancelled 0.9 Sodium 140 (136-145) mmol/L Potassium 4.3 (3.5-5.1) mmol/L Chloride 106 (98-107) mmol/L Carbon Dioxide 26 (21-32) mmol/L Anion Gap 8 (3-11) BUN 27 H (6-23) mg/dl Creatinine 1.01 (0.6-1.2) mg/dl Est Cr Clr Drug Dosing 41.6 ml/min Est GFR ( Amer) 60.9 ml/min Est GFR (Non-Af Amer) 52.5 ml/min BUN/Creatinine Ratio 26.7 H (10-20) Glucose 165 H (70-99(Fasting)) mg/dl Calcium 10.0 (8.6-10.3) mg/dl Total Bilirubin 0.8 (0.2-1.0) mg/dl AST 26 (13-39) U/L ALT 14 (7-52) U/L Alkaline Phosphatase 78 (34-104) U/L Troponin I High Sens 6.9 (0-14) pg/ml Total Protein 7.5 (6.0-8.3) gm/dl Albumin 4.1 (3.4-5.0) gm/dl Globulin 3.4 (2.5-4.0) gm/dl Albumin/Globulin Ratio 1.2 (0.9-2) Lipase 32 (11-82) U/L Urine Color Urine Appearance (Clear) Urine pH (4.5-7.5) Ur Specific [place] (1.000-1.030) Urine Protein (Negative) Urine Glucose (UA) (Negative) Urine Ketones (Negative) Urine Blood (Negative) Urine Nitrite (Negative) Urine Bilirubin (Negative) Urine Urobilinogen (Negative) Ur Leukocyte Esterase (Negative) Urine WBC (Auto) (0-5) /hpf Urine RBC (Auto) (0-4) /hpf U Hyaline Cast (Auto) (0-5) /lpf U Epithel Cells (Auto) (0-5) /lpf Urine Bacteria (Auto) (Negative) SARS-CoV-2 (PCR) NEGATIVE (Negative) Influenza Type A (PCR) Negative (Neg) Influenza Type B (PCR) Negative (Neg) RSV (RT-PCR) Negative (Neg) 06/12/23 Range/Units 13:50 WBC (4.8-10.8) K/ul RBC (4.20-5.40) M/uL Hgb (12.0-16.0) g/dl Hct (37.0-47.0) % MCV (80.0-100.0) fL MCH (25.0-34.0) pg MCHC (32.0-36.0) g/dL RDW Std Deviation (36.4-46.3) fL RDW Coeff of [place] (11.5-14.5) % Plt Count (130-400) K/uL MPV (9.4-12.4) fL Immature Gran % (Auto) % Neut % (Auto) % Lymph % (Auto) % [place] % (Auto) % Eos % (Auto) % Baso % (Auto) % Neut # (Auto) (1.40-6.50) K/uL Lymph # (Auto) (1.20-3.40) K/uL [place] # (Auto) (0.11-0.59) K/uL Eos # (Auto) (0.00-0.50) K/uL Baso # (Auto) (0.00-0.20) K/uL Immature Gran # (Auto) (0.01-0.20) K/uL PT INR APTT PTT Ratio Sodium (136-145) mmol/L Potassium (3.5-5.1) mmol/L Chloride (98-107) mmol/L Carbon Dioxide (21-32) mmol/L Anion Gap (3-11) BUN (6-23) mg/dl Creatinine (0.6-1.2) mg/dl Est Cr Clr Drug Dosing ml/min Est GFR ( Amer) ml/min Est GFR (Non-Af Amer) ml/min BUN/Creatinine Ratio (10-20) Glucose (70-99(Fasting)) mg/dl Calcium (8.6-10.3) mg/dl Total Bilirubin (0.2-1.0) mg/dl AST (13-39) U/L ALT (7-52) U/L Alkaline Phosphatase (34-104) U/L Troponin I High Sens (0-14) pg/ml Total Protein (6.0-8.3) gm/dl Albumin (3.4-5.0) gm/dl Globulin (2.5-4.0) gm/dl Albumin/Globulin Ratio (0.9-2) Lipase (11-82) U/L Urine Color Yellow Urine Appearance Clear (Clear) Urine pH 8.5 H (4.5-7.5) Ur Specific [place] 1.013 (1.000-1.030) Urine Protein Negative (Negative) Urine Glucose (UA) Negative (Negative) Urine Ketones Negative (Negative) Urine Blood Negative (Negative) Urine Nitrite Positive A (Negative) Urine Bilirubin Negative (Negative) Urine Urobilinogen Negative (Negative) Ur Leukocyte Esterase 1+ H (Negative) Urine WBC (Auto) 10-30 H (0-5) /hpf Urine RBC (Auto) 0-4 (0-4) /hpf U Hyaline Cast (Auto) 0 (0-5) /lpf U Epithel Cells (Auto) 0-5 (0-5) /lpf Urine Bacteria (Auto) 2+ H (Negative) SARS-CoV-2 (PCR) (Negative) Influenza Type A (PCR) (Neg) Influenza Type B (PCR) (Neg) RSV (RT-PCR) (Neg) Imaging Data Attestation: I personally reviewed and interpreted this imaging study as follows: My Impression: 1 view chest x-ray was obtained in the emergency department. My interpretation is no free air or definite infiltrate, final report below. CT of the brain was obtained in the emergency department. My interpretation is no intracranial hemorrhage or mass effect, final report below. Radiologist's Impression: Cervical Spine CT 06/12/23 11:37 CT OF THE CERVICAL SPINE WITHOUT CONTRAST CLINICAL HISTORY: fall COMPARISON STUDY: Cervical spine CT December 31, 2018. TECHNIQUE: Helical axial images of the cervical spine were obtained without IV contrast. Sagittal and coronal reconstructions were viewed. Automated exposure control was utilized for the study. A dose lowering technique was utilized adhering to the principles of ALARA. FINDINGS: There is slight reversal of the cervical lordosis. Vertebral body heights are maintained. No acute cervical spine fracture or subluxation is present. There is no prevertebral edema. Facet joints are intact. Moderate multilevel degenerative disc disease, facet arthrosis and osteophytosis is present. IMPRESSION: No acute cervical spine fracture or subluxation. ACT 112: Negative or not required by law. Electronically signed by: Keith Scruggs M.D. 06/12/2023 12:36 PM Chest X-Ray 06/12/23 11:37 XR chest 1V portable HISTORY: 78 years-old Female Chest pain, nonspecific acute chest pain COMPARISON: Chest CT 09/22/2022 TECHNIQUE: AP view of the chest FINDINGS: The mediastinal and hilar silhouettes are within normal limits. A loop recorder device is noted. No pneumothorax, pleural effusion, airspace consolidation or pulmonary edema. Degenerative changes of the shoulders and spine. Cholecystectomy. IMPRESSION: No acute process. ACT 112: Negative or not required by law. The above report was generated using voice recognition software. It may contain grammatical, syntax or spelling errors. Electronically signed by: Earl Gonzalez M.D. 06/12/2023 12:[address] 06/12/23 11:37 CT OF THE HEAD WITHOUT CONTRAST CLINICAL HISTORY: fall COMPARISON STUDY: Head CT December 31, 2018. CT DOSE: 1962.7 mGy.cm TECHNIQUE: Helical axial images of the head were obtained without IV contrast. Automated exposure control was utilized for the study. A dose lowering technique was utilized adhering to the principles of ALARA. FINDINGS: No acute intracranial hemorrhage, midline shift or mass effect is present. Mild ventricular dilatation is unchanged and likely due to central atrophy. White matter hypodensity suggests small vessel disease. The basal cisterns are patent. No extra-axial collections are present. There are no findings to suggest acute dural sinus thrombosis or acute territorial infarct. No significant calvarial abnormalities are present. Visualized portions of the sinuses and mastoid air cells are clear. IMPRESSION: 1. No acute intracranial findings. No change in appearance of the brain. 2. No calvarial fracture. ACT 112: Negative or not required by law. Electronically signed by: Keith Scruggs M.D. 06/12/2023 12:23 PM Pelvis X-Ray 06/12/23 11:37 XR pelvis 1-2V routine CLINICAL HISTORY: fall COMPARISON: Pelvis radiograph December 09, 2013. CT of the abdomen and pelvis March 12, 2022. FINDINGS: Sacroiliac joints and symphysis pubis are intact. No acute fracture within the pelvis or hips is identified. Visualized portions of the right hip arthroplasty are intact. The distal most aspect of the femoral component was not imaged on this exam. IMPRESSION: 1. No fractures within the pelvis or hips. 2. Visualized portions of the right hip arthroplasty intact. ACT 112: Negative or not required by law. Electronically signed by: Keith Scruggs M.D. 06/12/2023 12:[address] 06/12/23 11:50 CT lumbar spine wo con CLINICAL HISTORY: fall TECHNIQUE: Multidetector row helical CT of the lumbar spine was performed without administration of intravenous contrast. Coronal and sagittal reformations were obtained. Automated dose lowering techniques and/or adjustment according to patient size were utilized for this exam. Comparison: None available at the time of this dictation. FINDINGS: For counting purposes, the last complete intervertebral disc space is considered L5-S1. No acute fractures are identified. Degenerative changes are noted in the visualized spine. S-shaped scoliosis is seen. Diverticulosis is seen without diverticulitis. IMPRESSION: Degenerative changes without evidence of acute fracture. ACT 112: Negative or not required by law. Electronically signed by: Shelton Goins M.D. 06/12/2023 12:32 PM Discharge Plan Visit Data Chief Complaint: Fall ED Provider: Kwame Pelayo Discharge Problem: Falls frequently, Cough, Weakness Patient Disposition: Being Evaluated by Hospitalist Forms Stand Alone Forms: [facility] Prescriptions Prescriptions: No Action multivitamin tablet 1 tab PO QAM (DME) lancets misc See Dose Instructions .ROUTE .MEDSUPPLY Qty: 50 0RF Dose Instruction: As directed Rx Instructions: As directed 33G (DME) blood sugar diagnostic Strip See Dose Instructions .ROUTE .MEDSUPPLY Qty: 100 1RF Dose Instruction: As directed Rx Instructions: Testing 2 times daily atorvastatin 10 mg tablet 10 mg PO DAILY Qty: 100 3RF donepezil 5 mg tablet 5 mg PO DAILY Qty: 90 2RF (DME) lancets [OneTouch Delica Lancets] 33 gauge misc See Rx Instructions .ROUTE .MEDSUPPLY Qty: 100 3RF Rx Instructions: Testing blood sugar twice daily metformin 500 mg tablet 500 mg PO DAILY Qty: 100 3RF magnesium oxide 400 mg (241.3 mg magnesium) tablet 400 mg PO TID Qty: 90 3RF potassium chloride 10 mEq tablet extended release 10 meq PO DAILY Qty: 30 5RF (DME) OneTouch Verio test strips Strip See Rx Instructions .ROUTE .MEDSUPPLY Qty: 50 11RF Rx Instructions: Testing blood sugar twice daily cetirizine [Zyrtec] 10 mg tablet 10 mg PO DAILY Qty: 90 1RF levothyroxine [Synthroid] 75 mcg tablet 75 mcg PO DAILY Qty: 30 2RF escitalopram oxalate 20 mg tablet 20 mg PO QAM Qty: 90 3RF furosemide [Lasix] 20 mg tablet 20 mg PO DAILY Qty: 30 5RF pantoprazole [Protonix] 40 mg tablet,delayed release (DR/EC) 40 mg PO BID Qty: 60 5RF Proair Digihaler 90 mcg/actuation aero powdr breath act w/sensor 2 inh inhalation Q6H Qty: 1 3RF Neilmed Sinus Rinse Complete Packet With Rinse Device See Rx Instructions .Route .COMPLEX Qty: 50 3RF Rx Instructions: use daily; amlodipine 5 mg tablet 5 mg PO DAILY Qty: 30 11RF cholecalciferol (vitamin D3) 1,000 unit capsule 1,000 units PO QAM cyanocobalamin (vitamin B-12) 500 mcg Tablet 1,000 mcg PO QAM Qty: 30 0RF Referrals Referrals: Candis Lee DO [Primary Care Provider] - Discharge Problem: Cough Qualifiers: Cough type: chronic Qualified Code(s): R05.3 - Chronic cough
[2023-06-12 12:07] LABS: Basophils # (auto) 0.03 K/uL (0.00-0.20); Basophils % (auto) 0.5 %; Eosinophils # (auto) 0.17 K/uL (0.00-0.50); Eosinophils % (auto) 2.9 %; Hematocrit (blood only) 38.4 % (37.0-47.0); Hemoglobin 12.8 g/dl (12.0-16.0); Immature Granulocytes # (auto) 0.01 K/uL (0.01-0.20); Immature Granulocytes % (auto) 0.2 %; Lymphocytes # (auto) 1.12 K/uL (1.20-3.40); Mean Corpuscular Hemoglobin 30.9 pg (25.0-34.0); Mean Corpuscular Hgb Conc 33.3 g/dL (32.0-36.0); Mean Corpuscular Volume 92.8 fL (80.0-100.0); Mean Platelet Volume 10.8 fL (9.4-12.4); Monocytes # (auto) 0.34 K/uL (0.11-0.59); Monocytes % (auto) 5.8 %; Neutrophils # (auto) 4.23 K/uL (1.40-6.50); Neutrophils % (auto) 71.6 %; Platelet Count 202 K/uL (130-400); RDW Coefficient of Variation 12.6 % (11.5-14.5); RDW Standard Deviation 42.8 fL (36.4-46.3); Red Blood Count 4.14 M/uL (4.20-5.40)
--- NOTE | 2023-06-12 12:09 | XRay Report ---
XR pelvis 1-2V routine CLINICAL HISTORY: fall COMPARISON: Pelvis radiograph December 09, 2013. CT of the abdomen and pelvis March 12, 2022. FINDINGS: Sacroiliac joints and symphysis pubis are intact. No acute fracture within the pelvis or h ips is identified. Visualized portions of the right hip arthroplasty are intact. The distal most aspe ct of the femoral component was not imaged on this exam. IMPRESSION: 1. No fractures within the pelvis or hips. 2. Visualized portions of the right hip arthroplasty intact. ACT 112: Negative or not required by law. Electronically signed by: Keith Scruggs M.D. 06/12/2023 12:08 PM
[2023-06-12 12:23] LABS: Albumin Globulin Ratio 1.2 (0.9-2); Albumin Level 4.1 gm/dl (3.4-5.0); BUN Creatinine Ratio 26.7 (10-20); Bilirubin,Total 0.8 mg/dl (0.2-1.0); Creatinine Clr Calc Pharmacy 41.6 ml/min; Est GFR (African American) 60.9 ml/min; Est GFR (Non-African American) 52.5 ml/min; Globulin 3.4 gm/dl (2.5-4.0); Potassium 4.3 mmol/L (3.5-5.1); Total Protein 7.5 gm/dl (6.0-8.3)
--- NOTE | 2023-06-12 12:25 | CT Scan Report ---
CT OF THE HEAD WITHOUT CONTRAST CLINICAL HISTORY: fall COMPARISON STUDY: Head CT December 31, 2018. CT DOSE: 1962.7 mGy.cm TECHNIQUE: Helical axial images of the head were obtained without IV contrast. Automated exposure con trol was utilized for the study. A dose lowering technique was utilized adhering to the principles o f ALARA. FINDINGS: No acute intracranial hemorrhage, midline shift or mass effect is present. Mild ventricular dilatation is unchanged and likely due to central atrophy. White matter hypodensity suggests small v essel disease. The basal cisterns are patent. No extra-axial collections are present. There are no fi ndings to suggest acute dural sinus thrombosis or acute territorial infarct. No significant calvarial abnormalities are present. Visualized portions of the sinuses and mastoid air cells are clear. IMPRESSION: 1. No acute intracranial findings. No change in appearance of the brain. 2. No calvarial fracture. ACT 112: Negative or not required by law. Electronically signed by: Keith Scruggs M.D. 06/12/2023 12:23 PM
[2023-06-12 12:28] LABS: Troponin I High Sensitivity 6.9 pg/ml (0-14)
--- NOTE | 2023-06-12 12:29 | XRay Report ---
XR chest 1V portable HISTORY: 78 years-old Female Chest pain, nonspecific acute chest pain COMPARISON: Chest CT 09/22/2022 TECHNIQUE: AP view of the chest FINDINGS: The mediastinal and hilar silhouettes are within normal limits. A loop recorder device is noted. No p neumothorax, pleural effusion, airspace consolidation or pulmonary edema. Degenerative changes of the shoulders and spine. Cholecystectomy. IMPRESSION: No acute process. ACT 112: Negative or not required by law. The above report was generated using voice recognition software. It may contain grammatical, syntax o r spelling errors. Electronically signed by: Earl Gonzalez M.D. 06/12/2023 12:27 PM
--- NOTE | 2023-06-12 12:33 | CT Scan Report ---
CT lumbar spine wo con CLINICAL HISTORY: fall TECHNIQUE: Multidetector row helical CT of the lumbar spine was performed without administration of i ntravenous contrast. Coronal and sagittal reformations were obtained. Automated dose lowering techniq ues and/or adjustment according to patient size were utilized for this exam. Comparison: None available at the time of this dictation. FINDINGS: For counting purposes, the last complete intervertebral disc space is considered L5-S1. No acute fractures are identified. Degenerative changes are noted in the visualized spine. S-shaped s coliosis is seen. Diverticulosis is seen without diverticulitis. IMPRESSION: Degenerative changes without evidence of acute fracture. ACT 112: Negative or not required by law. Electronically signed by: Shelton Goins M.D. 06/12/2023 12:32 PM
--- NOTE | 2023-06-12 12:37 | CT Scan Report ---
CT OF THE CERVICAL SPINE WITHOUT CONTRAST CLINICAL HISTORY: fall COMPARISON STUDY: Cervical spine CT December 31, 2018. TECHNIQUE: Helical axial images of the cervical spine were obtained without IV contrast. Sagittal a nd coronal reconstructions were viewed. Automated exposure control was utilized for the study. A do se lowering technique was utilized adhering to the principles of ALARA. FINDINGS: There is slight reversal of the cervical lordosis. Vertebral body heights are maintained. N o acute cervical spine fracture or subluxation is present. There is no prevertebral edema. Facet join ts are intact. Moderate multilevel degenerative disc disease, facet arthrosis and osteophytosis is p resent. IMPRESSION: No acute cervical spine fracture or subluxation. ACT 112: Negative or not required by law. Electronically signed by: Keith Scruggs M.D. 06/12/2023 12:36 PM
[2023-06-12 13:48] LABS: INR 1.1 (0.9-1.1); Partial Thromboplastin Ratio 0.9; Partial Thromboplastin Time 26 Seconds (21-31); Prothrombin Time 11.9 Seconds (9.0-12.0)
[2023-06-12 14:14] LABS: Appearance Urine Clear (Clear); Bacteria Urine Automated 2+ (Negative); Bilirubin Urine Negative (Negative); Blood Urine Negative (Negative); Cast Urine Automated 0 /lpf (0-5); Color Urine Yellow; Epithelial Cell Urine Auto 0-5 /lpf (0-5); Glucose Urine UA Negative (Negative); Ketones Urine Negative (Negative); Leukocyte Esterase Urine 1+ (Negative); Nitrite Urine Positive (Negative); Protein Urine Negative (Negative); RBC Urine Automated 0-4 /hpf (0-4); Specific Gravity Urine 1.013 (1.000-1.030); Urobilinogen Urine Negative (Negative); pH Urine 8.5 (4.5-7.5)
[2023-06-12 14:29] LABS: Influenza A virus by PCR Negative (Neg); Influenza B virus by PCR Negative (Neg); RSV by PCR Negative (Neg); SARS CoV2 RNA(COVID-19) Ceph NEGATIVE (Negative)
--- NOTE | 2023-06-12 14:49 | History & Physical Report ---
Date of Service June 12, 2023 Assessment & Plan (1) Falls frequently: Plan: Progressive weakness and Alzheimer's dementia with gradual deconditioning Has seen cardiology for syncope and has a cardiac recorder recently interrogated and with cardiology follow-up 06/01/2023. No tachycardia, bradycardia, pauses, or A-fib noted on her device at that time Patient denies syncope, reports weakness causing her to fall. Denies of focal weakness. Somewhat limited exam due to cognitive status. Rn Neurology strength, hip flexion, ankle flexion/dorsiflexion are 4+/5 bilaterally without asymmetry, fatigues extremely easily at bedside Suspect chronic progressive decline acutely worse in the setting of UTI. Treatment of UTI as below PT/OT pending, CM consulted to help facilitate placement Reportedly with a history of cirrhosis but has never had decompensated cirrh osis, no coagulopathy, no ascites. No history of hepatitis or alcohol abuse. Does have history of DM 2. Transaminases are not elevated on admission. Ammonia added and pending (2) Dementia: Plan: Alzheimer's dementia.Follows with a memory specialist as outpatient Continue donepezil Is with potential acute deterioration due to superimposed UTI, baseline has been downtrending over the last year with increasing fall frequency as noted (3) Type 2 diabetes mellitus: Plan: sliding scale while inpatient, metformin held. Basal deferred due to age, BMI and risk of hypoglycemia Goal BSG [id number] (4) Syncope, vasovagal: Plan: Reports her fall leading to admission today was without syncope, but she did hit her head. No acute findings on CThead/C-spine/lumbar spine or pelvis x-ray (5) UTI (urinary tract infection): Plan: Incontinent at baseline, however has been soiling pads with increased frequency and urine with a worsened odor in the last few days UA is infected appearing with no epithelial cells Will treat with Rocephin, follow UCx. No DAYANA is present (6) Refusal of blood transfusions as patient is Rastafarian: Plan: Noted. Patient may not relieve receive blood transfusion under any circumstances. Transfusion is not indicated at this time Plan Chronic stable issues: Rastafarian, no blood transfusion under any circumstances Hypothyroidism; Synthroid continued, TSH pending DVT prophylaxis: heparin Disposition: Medical/surgical CODE STATUS: DNR/DNI Diet: Soft bite-size, DM 2 History of Present Illness Primary Care Provider: Candis Lee DO History of dementia, liver disease who has been progressively declining at home with multiple recurrent falls. notes she is usually able to manage but hit her head for the first time. Chronic dry cough x1 month with a negative outpatient workup. Patient was seen by ER provider, due to recurrent progress savanah falls now with head injury and progressive weakness does not feel patient is safe for return home and would like an admission for PT/OT and placement evaluation. She has no fever, no signs of fracture on x-rays. Urine is with evidence of a UTI Has a history of syncope/falls for which she had a event monitor. REports she just gets very weak and falls, and workup overal was not helpful. had thearpy in feb/mar which helped a bit, but 'not that much' and she has continued to decline. PCP and cardiology also notd a 'chronic cough since last year' and she sees a memory specialist Dr. Lorenzo for alzheimers, but has continued to decline. Therapy stopped in Mar, weaker in the last 2 months, and now weakness has progressed to multiple falls and 1x fall hitting her head prior to admission. No focal weakness. Much more confused than normal for at least the last few weeks. Normally is not oriented to day/year. No sudden change, but continuing to progressively decline Incontinent at baseline with pads. 6-8 voids daily now, and pads have to be changed daily in the last few days and with a more foul odor. No fever/chills. Denies chest pain/chest pressure Medical History: Reviewed Medications: Reviewed Surgical History: Reviewed Family history: Reviewed Allergies: Reviewed Social History: Reviewed Code Status:DNR Allergies Allergy/AdvReac Type Severity Reaction Status Date / Time bee venom protein (honey bee) Allergy Severe SWELLS UP Verified 06/01/23 13:07 cefazolin Allergy Severe SHORTNESS Verified 06/01/23 13:07 OF BREATH adhesive Allergy Intermediate HIVES WITH Verified 06/01/23 13:07 TAPE azithromycin Allergy Unknown Unknown Verified 06/01/23 13:07 candesartan AdvReac Intermediate cough Verified 06/01/23 13:07 enalapril AdvReac Intermediate cough Verified 06/01/23 13:07 lisinopril AdvReac Intermediate COUGH Verified 06/01/23 13:07 morphine AdvReac Intermediate ABNORMAL Verified 06/01/23 13:07 DREAMS/PASSED OUT nitroglycerin AdvReac Intermediate GI SYMPTOMS Verified 06/01/23 13:07 Home Medications Medication Instructions Recorded Confirmed Type lancets #50 ea 12/17/18 06/01/23 Rx multivitamin 1 tab PO QAM 12/17/18 06/12/23 History cholecalciferol (vitamin D3) 25 1,000 units PO QAM 04/04/19 06/12/23 History mcg (1,000 unit) capsule blood sugar diagnostic #100 ea 05/31/19 06/01/23 Rx cyanocobalamin (vitamin B-12) 500 1,000 mcg (2 x 500 mcg) PO QAM #30 03/26/22 06/12/23 Rx mcg tablet tabs atorvastatin 10 mg tablet 10 mg PO DAILY #100 tabs 08/17/22 06/12/23 Rx albuterol sulfate 90 mcg/actuation 2 inh inhalation Q6H cough #1 ea 08/23/22 06/12/23 Rx breath activated powder inhaler,sensor (Proair Digihaler) donepezil 5 mg tablet 5 mg PO DAILY #90 tabs 09/22/22 06/12/23 Rx lancets 33 gauge (OneTouch Delica #100 ea 09/28/22 06/01/23 Rx Lancets) sodium chloride, sodium See Rx Instructions .Route 11/18/22 06/12/23 Rx bicarb-nasal rinse squeeze bottle .COMPLEX #50 ea with packet (Neilmed Sinus Rinse Complete with packet) metformin 500 mg tablet 500 mg PO DAILY #100 tabs 11/21/22 06/12/23 Rx pantoprazole 40 mg tablet,delayed 40 mg PO BID #60 tabs 12/19/22 06/12/23 Rx release (Protonix) magnesium oxide 400 mg (241.3 mg 400 mg PO TID #90 tabs 12/30/22 06/12/23 Rx magnesium) tablet potassium chloride 10 mEq 10 meq PO DAILY #30 tabs 01/04/23 06/12/23 Rx tablet,extended release blood sugar diagnostic (OneTouch #50 ea 01/17/23 06/01/23 Rx Verio test strips) cetirizine 10 mg tablet (Zyrtec) 10 mg PO DAILY allergy symptoms 01/26/23 06/12/23 Rx #90 tabs Synthroid 75 mcg tablet 75 mcg PO DAILY #30 tabs 02/20/23 06/12/23 Rx (levothyroxine) escitalopram oxalate 20 mg tablet 20 mg PO QAM #90 tabs 05/24/23 06/12/23 Rx amlodipine 5 mg tablet 5 mg PO DAILY #30 tabs 06/01/23 06/12/23 Rx furosemide 20 mg tablet (Lasix) 20 mg PO DAILY #30 tabs 06/01/23 06/12/23 Rx Past Med/Surg History Medical History Refusal of blood transfusions as patient is Rastafarian Seasonal allergies mild Implantable loop recorder present follows w/ Dr Milian last visit 02/2022 History of syncope hx- no issues in years ADMITTED [facility] 12/31/18-EKG/ECHO /HOLTER MONITOR-NO DIAGNOSIS PER PT- Cirrhosis LGI bleed 03/2022 [place] Acute upper GI bleed Dementia Anemia Nausea and vomiting after administration of anesthetic agent Asthma mild, ted uses inhaler GERD (gastroesophageal reflux disease) Anxiety and depression Hyperlipidemia Lumbar spinal stenosis TMJ syndrome Type 2 diabetes mellitus Hypothyroidism Hypertension Surgical History History of esophagogastroduodenoscopy (EGD) Hx of colonoscopy Status post total hip replacement, 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) S/P total hysterectomy and bilateral salpingo-oophorectomy S/P tonsillectomy S/P cholecystectomy S/P appendectomy Family History Father Hypertension Myocardial infarction Diabetes Coronary heart disease Sister Coronary heart disease Mother Diabetes Myocardial infarction Coronary heart disease Hypertension Denies family history of Ovarian cancer Prostate cancer Breast cancer Colorectal cancer Social History Smoking Status: Never smoker Second Hand Exposure: No; Do You Dip or Chew Tobacco: No; Hx Alcohol Use: No Hx Substance Use: No Preferred Language: Turkish Communication Ability: Effective Visual Impairment: Limited Hearing Ability: Normal Driller Portable Required: No Beliefs That Will Affect Care: Uatsdin Uatsdin Beliefs: Rastafarian- NO BLOOD PRODUCTS TO BE GIVEN TO PT marital status: Current Living Situation: Spouse current occupational status: retired Feels Safe at Home: Yes Childhood Exposure to Second-Hand Smoke: No Diet: regular Diet Comment: regular caffeine: No during the past year weight has: remained stable Dental Care, Regularly: Yes Physical Activity Frequency: 1-2 Times per Week Seatbelt Use: always Sunscreen Use: Yes Assistive Devices: Cane and Glasses Physical Exam Physical Exam: General:Oriented to name only. NAD. Cooperative. HEENT: Atraumatic, normocephalic. MARY ANN. EoM intact. Vision/hearing intact Pulm: CTAB A&P. -wheezes, -rales, -rhonchi. Symmetrical chest rise. No increased work of breathing. No respiratory distress. Cardiac: RRR, -mrg. Radial pulses intact and symmetrical. Abdominal: Nontender, nondistended, soft. BS present. Results & Data Results & Data Vital Signs (Past 12 Hours) Vital Signs Temp Pulse Resp BP Pulse Ox O2 Del Method 06/12/23 12:02 68 06/12/23 11:34 36.5 C 68 20 150/89 H 98 Room Air PG Care Time/CCT Total # of Minutes Spent Total Time Spent with Patient: Total time spent is greater than 50% in coordination of care (as documented) at patient's floor/unit and/or counseling patient: Coding Level of Care Code 90225 INT INP/OBS CARE 3/75MIN Diagnoses Falls frequently R29.6 Dementia F03.90 Type 2 diabetes mellitus E11.9 Syncope, vasovagal R55 UTI (urinary tract infection) N39.0 Refusal of blood transfusions as patient is Rastafarian Z53.1
--- NOTE | 2023-06-12 16:40 | Electrocardiogram Report ---
Test Reason : Blood Pressure : / mmHG Vent. Rate : 063 BPM Atrial Rate : 063 BPM P-R Int : 176 ms QRS Dur : 076 ms QT Int : 416 ms P-R-T Axes : 012 064 021 degrees QTc Int : 425 ms Sinus rhythm with Premature atrial complexes Low voltage QRS Borderline ECG When compared with ECG of 23-MAR-2022 13:36, Premature ventricular complexes are no longer Present Premature atrial complexes are now Present Nonspecific T wave abnormality no longer evident in Lateral leads QT has shortened Confirmed by David Sr ([id number]) on 06/12/2023 4:40:11 PM Referred By: Confirmed By:Jeronimo Sr
[2023-06-12] MEDS ORDERED: CARBOHYDRATES FOR HYPOGLYCEMIA PO PRN (17:29)
[2023-06-12] MEDS ORDERED: GLUCOSE 10 TAB/TUBE PO PRN (17:29)
[2023-06-12] MEDS ORDERED: DEXTROSE 50% 50 ML SYRINGE IV PRN (17:29)
[2023-06-12] MEDS ORDERED: GLUCOSE 40% GEL 15 GM TUBE PO PRN (17:29)
[2023-06-12] MEDS ORDERED: GLUCAGON FOR INJ 1 MG VIAL SQ PRN (17:29)
[2023-06-12] MEDS ORDERED: POLYETHYLENE (MIRALAX) 17 GM PACK PO PRN (17:29)
[2023-06-12] MEDS ORDERED: ALBUTEROL HFA 8 GM INHALER INH PRN (17:45)
[2023-06-12] MEDS: INSULIN ASPART PER UNIT CHARGE SC SCH ×2 (18:26→21:49)
[2023-06-12] MEDS: PANTOprazole 40 MG TAB PO SCH (20:12)
[2023-06-12] MEDS: MAGNESIUM OXIDE 400 MG TAB PO SCH (20:12)
[2023-06-12] MEDS: HEPARIN SOD 5,000 UNIT/0.5 ML VIAL SQ SCH (20:13)
[2023-06-12] MEDS: cefTRIAXone SODIUM 2,000 MG in DEXTROSE 5 % MINI-B 50 ML IV SCH (21:45)
[2023-06-13] MEDS ORDERED: LEVOTHYROXINE SODIUM 75 MCG TABLET PO SCH (06:30)
[2023-06-13] MEDS: HEPARIN SOD 5,000 UNIT/0.5 ML VIAL SQ SCH ×2 (07:38→20:16)
[2023-06-13] MEDS: MAGNESIUM OXIDE 400 MG TAB PO SCH ×3 (07:39→20:16)
[2023-06-13] MEDS: MULTIVITAMIN TAB PO SCH (07:39)
[2023-06-13] MEDS: ATORVASTATIN 10 MG TAB PO SCH (07:39)
[2023-06-13] MEDS: CETIRIZINE HCL 10 MG TABLET PO SCH (07:39)
[2023-06-13] MEDS: PANTOprazole 40 MG TAB PO SCH ×2 (07:39→20:16)
[2023-06-13] MEDS: CYANOCOBALAMIN (B-12) 500 MCG TABLET PO SCH (07:39)
[2023-06-13] MEDS: amLODIPine BESYLATE 5 MG TAB PO SCH (07:39)
[2023-06-13] MEDS: ESCITALOPRAM OXALATE 20 MG TAB PO SCH (07:40)
[2023-06-13] MEDS: POTASSIUM CHLORIDE 10 MEQ TABCR PO SCH (07:40)
[2023-06-13] MEDS: DONEPEZIL HCL 5 MG TAB PO SCH (07:40)
[2023-06-13] MEDS: INSULIN ASPART PER UNIT CHARGE SC SCH ×4 (08:20→20:41)
--- NOTE | 2023-06-13 08:44 | Hospitalist Progress Note ---
Date of Service June 13, 2023 Assessment & Plan (1) Falls frequently: Plan: Progressive weakness and Alzheimer's dementia with gradual deconditioning Suspect chronic progressive decline acutely worse in the setting of UTI. Treatment of UTI as below * Has seen cardiology for syncope and has a cardiac recorder recently interrogated and with cardiology follow-up 06/01/2023. No tachycardia, bradycardia, pauses, or A-fib noted on her device at that time * Patient denied syncope (however feels legs giving out/weak), reports weakness causing her to fall. Denies of focal weakness. Somewhat limited exam due to cognitive status. 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 No history of hepatitis or alcohol abuse. Does have history of DM 2. Transaminases are not elevated on admission. Ammonia added and wnl. Does have hx issues w/ constipation at baseline , moves bowels q2d. colace BID added (review of labs, Ca 10.0, added vitamin D to ensure not elevated) Vit D 99, replacement STOPPED (would discontinue at dc) TSH checked, low 0.061. T4 wnl however prior admit w/ elevations and was on 5x/wk 75mcg--> takes 75mcg daily. Placed tomorrow on hold and resuming for 06/15 and suspect 6x/week as already has medication at home vs decreasing to 50mcg (could alternatively alternate dosing 50/75mcg and repeat labs in f/u) B12 wnl UA appearing + as below (patient did endorse increased frequency/burning). No Bcx on admission (no leukocytosis/fever reported) PT/OT consults ordered -- patient wishing to return home ideally however interested in short term rehab if recommended. Notified CM to monitor therapy evals (2) UTI (urinary tract infection): Plan: Incontinent at baseline, however has been soiling pads with increased frequency and urine with a worsened odor in the last few days and she did endorse increased frequency/burning to myself 06/13 BUN/Cr stable, tolerating PO intake, no need for additional IVF Urine cx GNB on preliminary Continue Ceftriaxone IV daily in meantime F/u final urine cx/sensitivity (3) Dementia: Plan: Alzheimer's dementia.Follows with a memory specialist as outpatient Continue donepezil Is with potential acute deterioration due to superimposed UTI, baseline has been downtrending over the last year with increasing fall frequency as noted Appears pleasant/cooperative but only alert to person (not place/year at present) Synthroid adjustment as above, B12 not deficient Frequent orientation at baseline reporting improved/baseline (4) Type 2 diabetes mellitus: Plan: Most recent A1c 6.3, on metformin 500mg daily Holding outpt metformin, utilize SSI while inpatient Basal deferred due to age, BMI and risk of hypoglycemia Goal BSG [id number] Consider dc metformin at dc pending PO intake to prevent risk of hypoglycemia in patient only on metformin 500mg once daily (CrCl presently 41 but has been <30 in the past) Will repeat A1c w/ AM labs , montior BSGs (5) Syncope, vasovagal: Plan: Reports her fall leading to admission today was without syncope, but she did hit her head. No acute findings on CThead/C-spine/lumbar spine or pelvis x-ray Tx UTI as above, PT/OT evals to be undertaken (6) Refusal of blood transfusions as patient is Congregation: Plan: Noted. Patient may not relieve receive blood transfusion under any circumstances. Transfusion is not indicated at this time B12 not deficient, no bleeding reported (7) Vitamin D deficiency: Plan: prior hx of such, on 1000IU daily Ca 10.0, issues w/ constipation at baseline. Checked Vit D --> 99.3 and STOPPED further Vitamin D supplementation as can cause elevated calcium/confusion/AMs from such (8) Hypothyroidism: Plan: TSH added to labs, LOW Prior elevations/adjustments to meds HOLDING AM dose for 06/14, resuming 06/15. Consideration to alternate 50/75mcg dosing vs 6x/wk dosing of her 75mcg as already has rx. Will need repeat TFT outpatient. Plan CODE STATUS: DNR/DNI DVT prophylaxis: heparin SQ while inpatient (noting again, patient is jehovah witness -- NO TRANSFUSIONS - prior concerns for LGIB however suspect from prior PO iron supplementation and no bleeding reported/hgb stable) PT/OT pending, likely benefit from short term rehab as outlined above., CM to monitor evals, updated at bedside 06/13 Admission and Anticipated Discharge Date Admission Date: June 12, 2023 Supervising Physician Co-Signing Physician Notes The patient was not seen by me. The chart was reviewed. Case discussed with SHAILA Camacho. Agree with assessment and plan Subjective Evaluated this morning, sitting up in chair. No issues. Did endorse increased frequency and burning with urination and weakness however nonfocal. Hx dementia at baseline on donepazil, thinks is in [facility], 2007 but pleasant/cooperative and will continue to monitor. Following commands/instructions as asked, no slurred speech/facial droop. Discussed treatment of UTI and checking labs but suspect inpatient another 1-2 days. Her goal is home w/ at me, hopeful to avoid inpatient rehab of any kind. Restated Jehovah witness, no blood products. Did have some nausea but no vomiting. No chest pain, shortness of breath. Moves bowels about every other day, unsure her last BM. (per nursing discussion w/ last evening, last BM 06/11). Questions/concerns addressed at this time. Updated this afternoon -- reports she had home health therapy in the past and inquiring about inpatient rehab. Will monitor therapy evals, but agree benefit w/ short term rehab to prevent repeat falls/further injury in future to work on strength/conditioning. Physical Exam 2 Physical Exam: General: WD frail elderly female sitting up in bed, therapy in room, NAD alert to person but thought in [facility], 2007, pleasant and cooperative, no slurred speech/facial droop Head atraumatic normocephalic, mmm, trachea midline Resp: even, unlabored, no w/c/r, 96% on RA CV: RRR, no significant murmur, no pitting edema/calf tenderness GI: +BS, soft/NT : no braga MSK/Neuro/psych: generalized weakness but nonfocal, strength equal bilaterally, no slurred speech/facial droop, answering questions appropriately (albiet confused w/ orientation at times, appears around baseline per this afternoon) Results & Data Results & Data Vital Signs (Past 12 Hours) Vital Signs Temp Pulse Resp BP BP Pulse Ox O2 Del Method 06/13/23 07:31 36.6 C 61 14 127/65 96 Room Air 06/12/23 21:50 163/73 H 06/12/23 21:09 36.7 C 64 16 180/71 H 97 Room Air Laboratory Results 06/13/23 08:47 06/13/23 08:47 TSH 0.061 Ft4 1.5 Vit D 99.3 B12 1437 Diagnostic Findings Cervical Spine CT 06/12/23 11:37 CT OF THE CERVICAL SPINE WITHOUT CONTRAST CLINICAL HISTORY: fall COMPARISON STUDY: Cervical spine CT December 31, 2018. TECHNIQUE: Helical axial images of the cervical spine were obtained without IV contrast. Sagittal and coronal reconstructions were viewed. Automated exposure control was utilized for the study. A dose lowering technique was utilized adhering to the principles of ALARA. FINDINGS: There is slight reversal of the cervical lordosis. Vertebral body heights are maintained. No acute cervical spine fracture or subluxation is present. There is no prevertebral edema. Facet joints are intact. Moderate multilevel degenerative disc disease, facet arthrosis and osteophytosis is present. IMPRESSION: No acute cervical spine fracture or subluxation. ACT 112: Negative or not required by law. Electronically signed by: Keith Scruggs M.D. 06/12/2023 12:36 PM Chest X-Ray 06/12/23 11:37 XR chest 1V portable HISTORY: 78 years-old Female Chest pain, nonspecific acute chest pain COMPARISON: Chest CT 09/22/2022 TECHNIQUE: AP view of the chest FINDINGS: The mediastinal and hilar silhouettes are within normal limits. A loop recorder device is noted. No pneumothorax, pleural effusion, airspace consolidation or pulmonary edema. Degenerative changes of the shoulders and spine. Cholecystectomy. IMPRESSION: No acute process. ACT 112: Negative or not required by law. The above report was generated using voice recognition software. It may contain grammatical, syntax or spelling errors. Electronically signed by: Earl Gonzalez M.D. 06/12/2023 12:[address] 06/12/23 11:37 CT OF THE HEAD WITHOUT CONTRAST CLINICAL HISTORY: fall COMPARISON STUDY: Head CT December 31, 2018. CT DOSE: 1962.7 mGy.cm TECHNIQUE: Helical axial images of the head were obtained without IV contrast. Automated exposure control was utilized for the study. A dose lowering technique was utilized adhering to the principles of ALARA. FINDINGS: No acute intracranial hemorrhage, midline shift or mass effect is present. Mild ventricular dilatation is unchanged and likely due to central atrophy. White matter hypodensity suggests small vessel disease. The basal cisterns are patent. No extra-axial collections are present. There are no findings to suggest acute dural sinus thrombosis or acute territorial infarct. No significant calvarial abnormalities are present. Visualized portions of the sinuses and mastoid air cells are clear. IMPRESSION: 1. No acute intracranial findings. No change in appearance of the brain. 2. No calvarial fracture. ACT 112: Negative or not required by law. Electronically signed by: Keith Scruggs M.D. 06/12/2023 12:23 PM Pelvis X-Ray 06/12/23 11:37 XR pelvis 1-2V routine CLINICAL HISTORY: fall COMPARISON: Pelvis radiograph December 09, 2013. CT of the abdomen and pelvis March 12, 2022. FINDINGS: Sacroiliac joints and symphysis pubis are intact. No acute fracture within the pelvis or hips is identified. Visualized portions of the right hip arthroplasty are intact. The distal most aspect of the femoral component was not imaged on this exam. IMPRESSION: 1. No fractures within the pelvis or hips. 2. Visualized portions of the right hip arthroplasty intact. ACT 112: Negative or not required by law. Electronically signed by: Keith Scruggs M.D. 06/12/2023 12:[address] 06/12/23 11:50 CT lumbar spine wo con CLINICAL HISTORY: fall TECHNIQUE: Multidetector row helical CT of the lumbar spine was performed without administration of intravenous contrast. Coronal and sagittal reformations were obtained. Automated dose lowering techniques and/or adjustment according to patient size were utilized for this exam. Comparison: None available at the time of this dictation. FINDINGS: For counting purposes, the last complete intervertebral disc space is considered L5-S1. No acute fractures are identified. Degenerative changes are noted in the visualized spine. S-shaped scoliosis is seen. Diverticulosis is seen without diverticulitis. IMPRESSION: Degenerative changes without evidence of acute fracture. ACT 112: Negative or not required by law. Electronically signed by: Shelton Goins M.D. 06/12/2023 12:32 PM PG Care Time/CCT Total # of Minutes Spent Total Time Spent with Patient: Total time spent is greater than 50% in coordination of care (as documented) at patient's floor/unit and/or counseling patient: Coding Level of Care Code 09731 SUB INP/OBS CARE 2/35MIN Diagnoses Falls frequently R29.6 UTI (urinary tract infection) N39.0 Dementia F03.90 Type 2 diabetes mellitus E11.9 Syncope, vasovagal R55 Refusal of blood transfusions as patient is Congregation Z53.1 Vitamin D deficiency E55.9 Hypothyroidism E03.9
[2023-06-13] MEDS ORDERED: CHOLECALCIFEROL 25 MCG (1000 UNITS) TAB PO SCH (09:00)
[2023-06-13 09:06] LABS: Hematocrit (blood only) 36.9 % (37.0-47.0); Hemoglobin 12.5 g/dl (12.0-16.0); Mean Corpuscular Hemoglobin 31.1 pg (25.0-34.0); Mean Corpuscular Hgb Conc 33.9 g/dL (32.0-36.0); Mean Corpuscular Volume 91.8 fL (80.0-100.0); Mean Platelet Volume 10.5 fL (9.4-12.4); Platelet Count 234 K/uL (130-400); RDW Coefficient of Variation 12.7 % (11.5-14.5); RDW Standard Deviation 42.5 fL (36.4-46.3); Red Blood Count 4.02 M/uL (4.20-5.40); White Blood Count 6.84 K/ul (4.8-10.8)
[2023-06-13 09:22] LABS: Calcium 9.3 mg/dl (8.6-10.3); Potassium 3.7 mmol/L (3.5-5.1)
[2023-06-13 09:28] LABS: BUN Creatinine Ratio 20.4 (10-20); Creatinine Clr Calc Pharmacy 41.2 ml/min; Est GFR (African American) 63.1 ml/min; Est GFR (Non-African American) 54.5 ml/min
[2023-06-13 09:40] LABS: Thyroid Stimulating Hormone 0.061 uIu/ml (0.300-4.500)
[2023-06-13] MEDS: DOCUSATE SODIUM 100 MG CAP PO SCH ×2 (09:52→20:16)
[2023-06-13] MEDS: ACETAMINOPHEN 325 MG TAB PO PRN (09:52)
[2023-06-13 10:12] LABS: T4 Free Thyroxine 1.5 ng/dl (0.61-1.60)
[2023-06-13] MEDS ORDERED: COUGH DROP (SUGAR FREE) LOZ 24 LOZ/1 BOX BUCCAL ONE (19:06)
[2023-06-13] MEDS: cefTRIAXone SODIUM 2,000 MG in DEXTROSE 5 % MINI-B 50 ML IV SCH (20:11)
[2023-06-14] MEDS: MAGNESIUM OXIDE 400 MG TAB PO SCH ×3 (07:49→19:28)
[2023-06-14] MEDS: DOCUSATE SODIUM 100 MG CAP PO SCH ×2 (07:49→19:29)
[2023-06-14] MEDS: amLODIPine BESYLATE 5 MG TAB PO SCH (07:49)
[2023-06-14] MEDS: PANTOprazole 40 MG TAB PO SCH ×2 (07:49→19:29)
[2023-06-14] MEDS: MULTIVITAMIN TAB PO SCH (07:49)
[2023-06-14] MEDS: HEPARIN SOD 5,000 UNIT/0.5 ML VIAL SQ SCH ×2 (07:50→19:29)
[2023-06-14] MEDS: DONEPEZIL HCL 5 MG TAB PO SCH (07:50)
[2023-06-14] MEDS: POTASSIUM CHLORIDE 10 MEQ TABCR PO SCH (07:50)
[2023-06-14] MEDS: ESCITALOPRAM OXALATE 20 MG TAB PO SCH (07:50)
[2023-06-14] MEDS: ATORVASTATIN 10 MG TAB PO SCH (07:50)
[2023-06-14] MEDS: CYANOCOBALAMIN (B-12) 500 MCG TABLET PO SCH (07:50)
[2023-06-14] MEDS: CETIRIZINE HCL 10 MG TABLET PO SCH (07:50)
[2023-06-14 08:12] LABS: Calcium 9.2 mg/dl (8.6-10.3); Potassium 4.2 mmol/L (3.5-5.1)
[2023-06-14 08:18] LABS: BUN Creatinine Ratio 21.1 (10-20); Creatinine Clr Calc Pharmacy 44.9 ml/min; Est GFR (Non-African American) 60.4 ml/min
[2023-06-14 08:37] LABS: Estimated Average Glucose 143 mg/dl; Hemoglobin A1C 6.6 % (4.5-5.6)
[2023-06-14] MEDS: INSULIN ASPART PER UNIT CHARGE SC SCH ×4 (08:50→20:27)
--- NOTE | 2023-06-14 09:04 | Hospitalist Progress Note ---
Date of Service June 14, 2023 Assessment & Plan (1) Falls frequently: Plan: Progressive weakness and Alzheimer's dementia with gradual deconditioning Suspect chronic progressive decline acutely worse in the setting of UTI. Treatment of UTI as belowHas seen cardiology for syncope and has a cardiac recorder recently interrogated and with cardiology follow-up 06/01/2023. No tachycardia, bradycardia, pauses, or A-fib noted on her device at that timePatient denied syncope (however feels legs giving out/weak), reports weakness causing her to fall. Denies of focal weakness. Somewhat limited exam due to cognitive status. 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 No history of hepatitis or alcohol abuse. Does have history of DMII. Transaminases not elevated. Ammonia wnl. B12 wnl UA appeared infected on admission w/ patient reporting increased frequency/burning/suprapubic discomfort (notable no blood cx on admit but no fever/leukocytosis reported) Ceftriaxone IV daily continued (day 3 of treatment 06/14) Urine cx w/ E COLI Sensitivities reviewed --> resistant to Ampicillin, Unasyn, cefazolin. Intermediate to Zosyn and Augmentin - Plan to switch to PO abx to complete course 06/15 Chronic issues w/ constipation at baseline, moves bowels q2d at baseline per patient Review of labs w/ Ca 10.0, vit D added given on supplementation and was 99, supplementation STOPPED and would discontinue at discharge Colace BID added -- BM 06/14 TSH checked given constipation issues/prior admission w/ adjustment -TSH LOW0.061. FT4 1.5 but prior FT4 low at 0.58 and had her dose adjusted prior to that admission - held Synthroid for 06/14, resume 06/15 - would continue 6x/wk given current rx but can consider new rx for 50mcg daily. Could also consider alternating dose 50/75mcg given prior adjustments PT/OT consults ordered -- patient wishing to return home ideally however interested in short term rehab if recommended. Notified CM to monitor therapy evals (2) UTI (urinary tract infection): Plan: Incontinent at baseline, however has been soiling pads with increased frequency/burning and suprapubic discomfort Improvement in PO intake reported, +BM Urine cx as above, plan to switch to PO abx to complete course. ?consider completion of course w PO cipro for additional 2 days after today's dose IV (3) Dementia: Plan: Alzheimer's dementia.Follows with a memory specialist as outpatient Continue donepezil Is with potential acute deterioration due to superimposed UTI, baseline has been downtrending over the last year with increasing fall frequency as noted Appears pleasant/cooperative but only alert to person (not place/year at present) Synthroid adjustment as above, B12 not deficient Frequent orientation at baseline reporting improved/baseline (4) Type 2 diabetes mellitus: Plan: Most recent A1c 6.3 --> 6.6 on repeat Only on metformin 500mg daily at home, held during admission BSG AC/HS, sliding scale insulin and BSGs acceptable Basal deferred due to age, BMI and risk of hypoglycemia DM diet ordered Monitor Presently on metformin once daily (CrCl currently 44.9 but prior not reportable/30s). Hesitant to increase such given reasonable A1c w/ hx dementia and want to prevent hypoglycemia. Defer to f/u discussion w/ PCP outpatient (5) Syncope, vasovagal: Plan: Reports her fall leading to admission today was without syncope, but she did hit her head. No acute findings on CThead/C-spine/lumbar spine or pelvis x-ray Tx UTI as above, PT/OT evals to be undertaken (6) Refusal of blood transfusions as patient is Buddhism: Plan: Noted. Patient may not relieve receive blood transfusion under any circumstances. Transfusion is not indicated at this time B12 not deficient, no bleeding reported (7) Vitamin D deficiency: Plan: prior hx of such, on 1000IU daily Ca 10.0, issues w/ constipation at baseline. Checked Vit D --> 99.3 and STOPPED further Vitamin D supplementation as can cause elevated calcium/confusion/AMS from such (8) Hypothyroidism: Plan: TSH added to labs, LOW -Prior elevations/adjustments to meds -HOLDING AM dose for 06/14, resuming 06/15 and would dc on 6x/weekly dosing 75mcg. Can consider alternating her 75mcg w/ 50mcg dosing but for ease of administration/prior adjustments would continue current dosing and hold once a week. Will need repeat TFT in f/u with PCP Plan CODE STATUS: DNR/DNI DVT prophylaxis: heparin SQ while inpatient (noting again, patient is jehovah witness -- NO TRANSFUSIONS - prior concerns for LGIB however suspect from prior PO iron supplementation and no bleeding reported/hgb stable) updated afternoon 06/13, left voicemail w/ update this morning. PT/OT and planning for some rehab at dc. CM following, ref sent to [facility], backup if needed. Hopefully able to dc in next 24 hours if bed available/insurance auth received Admission and Anticipated Discharge Date Admission Date: June 12, 2023 Supervising Physician Co-Signing Physician Notes The patient was not seen by me. The chart was reviewed. Case discussed with SHAILA Camacho. Agree with assessment and plan Subjective Eval this morning, reports feeling a little better. Up in bed, no acute distress. Reports slept well, had bowel movement this morning. Reports when she urinated today she didn't have as much discomfort/burning, frequency decreased. Some suprapubic discomfort, but improved. Discussed urine cx/plan for PO abx for tomorrow. Also discussed vitamin D level/discontinued further supplementation and should be stopped at discharge. Agreeable to rehab, planning to update this afternoon again however did discuss we sent referrals to [facility] yesterday and CM following. Cough reported improved, no sputum production/hypoxia. Improvement in PO appetite. No chest pain, shortness of breath, nausea/vomiting. Physical Exam 2 Physical Exam: General: WD frail elderly female sitting up in bed, NAD, appears improved. alert to person/place, not year, appears at baseline Head atraumatic, normocephalic, mm slightly dry but improved with drink of water, trachea midline Resp: even/unlabored, no tachypnea, slightly diminished in the bases but no w/c/r, on room air 95% CV: RRR, no significant murmur, trace pedal edema, calves nontender, pulses palpable GI: +BS, soft, slight suprapubic discomfort (reportedly improved) : no braga MSK/Neuro/psych: generalized weakness 3/5, nonfocal, strength equal bilaterally, no slurred speech/facial droop, answering questions appropriately (albeit confused w/ orientation at times) Results & Data Results & Data Vital Signs (Past 12 Hours) Vital Signs Temp Pulse Resp BP BP Pulse Ox O2 Del Method 06/14/23 07:33 36.5 C 59 L 17 141/66 H 95 Room Air 06/13/23 21:05 36.6 C 64 16 126/87 95 Room Air Laboratory Results 06/13/23 08:47 06/14/23 07:03 PG Care Time/CCT Total # of Minutes Spent Total Time Spent with Patient: Total time spent is greater than 50% in coordination of care (as documented) at patient's floor/unit and/or counseling patient: Coding Level of Care Code 61917 SUB INP/OBS CARE 2/35MIN Diagnoses Falls frequently R29.6 UTI (urinary tract infection) N39.0 Dementia F03.90 Type 2 diabetes mellitus E11.9 Syncope, vasovagal R55 Refusal of blood transfusions as patient is Buddhism Z53.1 Vitamin D deficiency E55.9 Hypothyroidism E03.9
[2023-06-14] MEDS: cefTRIAXone SODIUM 2,000 MG in DEXTROSE 5 % MINI-B 50 ML IV SCH (19:27)
[2023-06-15] MEDS: LEVOTHYROXINE SODIUM 75 MCG TABLET PO SCH (05:59)
[2023-06-15 07:21] LABS: BUN Creatinine Ratio 20.2 (10-20); Calcium 9.2 mg/dl (8.6-10.3); Creatinine Clr Calc Pharmacy 45.4 ml/min; Est GFR (African American) 70.9 ml/min; Est GFR (Non-African American) 61.2 ml/min; Potassium 4.1 mmol/L (3.5-5.1)
--- NOTE | 2023-06-15 08:23 | Hospitalist Progress Note ---
Date of Service June 15, 2023 Assessment & Plan (1) Falls frequently: Plan: Progressive weakness and Alzheimer's dementia with gradual deconditioning Suspect chronic progressive decline acutely worse in the setting of UTI. Treatment of UTI as below Has seen cardiology for syncope and has a cardiac recorder recently interrogated and with cardiology follow-up 06/01/2023. No tachycardia, bradycardia, pauses, or A-fib noted on her device at that time. Patient denied syncope (however feels legs giving out/weak), reports weakness causing her to fall. Denies of focal weakness. Somewhat limited exam due to cognitive status. 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 No history of hepatitis or alcohol abuse. Does have history of DMII. Transaminases not elevated. Ammonia wnl. Bowel regimen to be continued given constipation at baseline as below (see vit D) B12 wnl TSH as below, low, adjustment to 6x/wk dosing recommended at mt and repeat TFT outpt pcp + UA/urine culture w/ [facility]OLI. Resistant to Amp/Unasyn, cefazolin. Intermediate to Zosyn and Augmentin. Ceftriaxone IV daily -->transitioned to Ciprofloxacin. per discussion w/ supervising provider to complete additional 3 days (end date 06/18) Lasix 20mg PO x 1 for today and scheduled daily (however reports doesn't always take daily at home and will monitor) PT/OT consulted, recs for rehab- insurance auth for [facility] pending. CM following (2) UTI (urinary tract infection): Plan: Incontinent at baseline, however has been soiling pads with increased frequency/burning and suprapubic discomfort days prior reported Improvement in PO intake, +BM 06/14 w/ bowel regimen Urine cx ecoli as above, transitioning to Ciprofloxacin to complete treatment (3) Dementia: Plan: Alzheimer's dementia.Follows with a memory specialist as outpatient Continue donepezil Is with potential acute deterioration due to superimposed UTI, baseline has been downtrending over the last year with increasing fall frequency as noted Appears pleasant/cooperative but only alert to person (not place/year at present) Synthroid adjustment as above, B12 not deficient at baseline reporting improved/baseline days prior. called to update this am (voicemail 06/14 but seen at bedside 06/13) Frequent orientation (4) Type 2 diabetes mellitus: Plan: Most recent A1c 6.3 --> 6.6 on repeat Only on metformin 500mg daily at home, held during admission BSG AC/HS, sliding scale insulin and BSGs acceptable Basal deferred due to age, BMI and risk of hypoglycemia DM diet ordered Monitor Presently on metformin once daily (CrCl currently 44.9 but prior not reportable/30s). --> Hesitant to increase such given reasonable A1c w/ hx dementia and want to prevent hypoglycemia. Defer to f/u discussion w/ PCP outpatient (5) Syncope, vasovagal: Plan: Reports her fall leading to admission today was without syncope, but she did hit her head. No acute findings on CThead/C-spine/lumbar spine or pelvis x-ray Tx UTI as above, PT/OT evals w/ recs for rehab (6) Refusal of blood transfusions as patient is Cheondoism: Plan: Noted. Patient may not relieve receive blood transfusion under any circumstances. Transfusion is not indicated at this time B12 not deficient, no bleeding reported (7) Vitamin D deficiency: Plan: prior hx of such, on 1000IU daily Ca 10.0, issues w/ constipation at baseline. Checked Vit D --> 99.3 --> STOPPED further Vitamin D supplementation as can cause elevated calcium/confusion/AMS from such. should discontinue at dc as well on med rec (8) Hypothyroidism: Plan: TSH checked given constipation issues/prior admission w/ adjustment -TSH LOW0.061. FT4 1.5 but prior FT4 low at 0.58 and had her dose adjusted prior to that admission - held Synthroid for 06/14, resumed 06/15 - would continue 6x/wk given current rx but can consider new rx for 50mcg daily. Could also consider alternating dose 50/75mcg given prior adjustments however for ease of admin probably just easier to drop a dose once weekly in the meantime. will need adjusted on dc med rec to 6x/wk, repeat TFT w/ PCP in 4-6 wks Hx cirrhosis - no acute decompensation at present time, but reported occassional cough. RSV/flu/covid negative on admission. ammonia not elevated, moving bowels - lasix 20mg PO daily on med list (will need to discuss w/ , but given dose for today given trace LE edema/cough to see if improvement. no significant pulm edema on CXR on admission) (9) Constipation: Plan: Chronic issues w/ constipation at baseline, moves bowels q2d at baseline per patient Hx cirrhosis, ammonia not elevated as above Bowel regimen added w/ colace BID, +BM 06/14 and continued on such Ca was 10.0/normal albumin on admission but had been on vitamin D supplementation and checked Vit D level to see if over correction/constipation contribution Vit D HIGH normal at 99.3 and STOPPED VIT D supp --> should dc at dc Monitor for any issues Plan CODE STATUS: DNR/DNI DVT prophylaxis: heparin SQ while inpatient updated afternoon 06/13 at bedside - left voicemail w/ update 06/14 &06/15. Has been visiting daily w/ patient PT/OT rec rehab and insurance auth pending for [facility] ([facility] to check bed availability for backup) CM following Admission and Anticipated Discharge Date Admission Date: June 12, 2023 Supervising Physician Co-Signing Physician Notes The patient was not seen by me. The chart was reviewed. Case discussed with SHAILA Camacho. Agree with assessment and plan Subjective eval this morning, doing alright. feeling better. no further suprapubic discomfort. Discussed transition to oral antibiotics for additional 3 days to complete course. moved her bowels yesterday resumed lasix today, asked if takes daily and she doesn't believe that she does. Will monitor. DId have some trace LE edema, slightly improved since lasix admin this morning. Reports occasional cough/stable/improved. Alessandro sherwood available prn. Awaiting insurance auth for [facility], hopefully have bed/can dc when able. If insurance denied will look into backup plan. No fever/chills, chest pain, shortness of breath, abdominal pain, nausea or vomiting. Questions/concerns addressed at this time. Physical Exam 2 Physical Exam: General: WD frail elderly female sitting up in bed, NAD, appears improved. alert to person but thought in [place] initially/year 2005 but pleasant/cooperative otherwise Head atraumatic, normocephalic, mm slightly dry but improved with drink of water, trachea midline Resp: even/unlabored, no tachypnea, slightly diminished in the bases but no w/c/r, on room air 96% CV: RRR, no significant murmur, trace pedal edema, calves nontender, pulses palpable GI: +BS, soft, no further suprapubic discomfort : no braga MSK/Neuro/psych: generalized weakness 3/5, nonfocal, strength equal bilaterally, no slurred speech/facial droop, answering questions appropriately (albeit confused w/ orientation at times) Results & Data Results & Data Vital Signs (Past 12 Hours) Vital Signs Temp Pulse Resp BP Pulse Ox O2 Del Method 06/15/23 07:10 36.3 C L 63 18 130/74 96 Room Air Laboratory Results 06/13/23 08:47 06/15/23 06:24 PG Care Time/CCT Total # of Minutes Spent Total Time Spent with Patient: Total time spent is greater than 50% in coordination of care (as documented) at patient's floor/unit and/or counseling patient: Coding Level of Care Code 44455 SUB INP/OBS CARE 3/50MIN Diagnoses Falls frequently R29.6 UTI (urinary tract infection) N39.0 Dementia F03.90 Type 2 diabetes mellitus E11.9 Syncope, vasovagal R55 Refusal of blood transfusions as patient is Cheondoism Z53.1 Vitamin D deficiency E55.9 Hypothyroidism E03.9 Constipation K59.00
[2023-06-15] MEDS: CYANOCOBALAMIN (B-12) 500 MCG TABLET PO SCH (09:30)
[2023-06-15] MEDS: DONEPEZIL HCL 5 MG TAB PO SCH (09:30)
[2023-06-15] MEDS: ESCITALOPRAM OXALATE 20 MG TAB PO SCH (09:30)
[2023-06-15] MEDS: MAGNESIUM OXIDE 400 MG TAB PO SCH ×3 (09:31→19:55)
[2023-06-15] MEDS: CETIRIZINE HCL 10 MG TABLET PO SCH (09:31)
[2023-06-15] MEDS: MULTIVITAMIN TAB PO SCH (09:31)
[2023-06-15] MEDS: amLODIPine BESYLATE 5 MG TAB PO SCH (09:31)
[2023-06-15] MEDS: ATORVASTATIN 10 MG TAB PO SCH (09:31)
[2023-06-15] MEDS: POTASSIUM CHLORIDE 10 MEQ TABCR PO SCH (09:31)
[2023-06-15] MEDS: PANTOprazole 40 MG TAB PO SCH ×2 (09:31→19:54)
[2023-06-15] MEDS: DOCUSATE SODIUM 100 MG CAP PO SCH ×2 (09:31→19:54)
[2023-06-15] MEDS: HEPARIN SOD 5,000 UNIT/0.5 ML VIAL SQ SCH ×2 (09:31→19:54)
[2023-06-15] MEDS: INSULIN ASPART PER UNIT CHARGE SC SCH ×4 (09:32→20:37)
[2023-06-15] MEDS: FUROSEMIDE 20 MG TAB PO SCH (09:52)
[2023-06-15] MEDS: CIPROFLOXACIN 500 MG TAB PO SCH (19:54)
[2023-06-16] MEDS: LEVOTHYROXINE SODIUM 75 MCG TABLET PO SCH (06:34)
[2023-06-16] MEDS: MAGNESIUM OXIDE 400 MG TAB PO SCH ×3 (08:14→19:49)
[2023-06-16] MEDS: PANTOprazole 40 MG TAB PO SCH ×2 (08:14→19:50)
[2023-06-16] MEDS: CYANOCOBALAMIN (B-12) 500 MCG TABLET PO SCH (08:14)
[2023-06-16] MEDS: DONEPEZIL HCL 5 MG TAB PO SCH (08:14)
[2023-06-16] MEDS: DOCUSATE SODIUM 100 MG CAP PO SCH ×2 (08:16→19:48)
[2023-06-16] MEDS: CIPROFLOXACIN 500 MG TAB PO SCH ×2 (08:16→19:48)
[2023-06-16] MEDS: amLODIPine BESYLATE 5 MG TAB PO SCH (08:16)
[2023-06-16] MEDS: ATORVASTATIN 10 MG TAB PO SCH (08:17)
[2023-06-16] MEDS: CETIRIZINE HCL 10 MG TABLET PO SCH (08:17)
[2023-06-16] MEDS: POTASSIUM CHLORIDE 10 MEQ TABCR PO SCH (08:17)
[2023-06-16] MEDS: MULTIVITAMIN TAB PO SCH (08:17)
[2023-06-16] MEDS: FUROSEMIDE 20 MG TAB PO SCH (08:17)
[2023-06-16] MEDS: HEPARIN SOD 5,000 UNIT/0.5 ML VIAL SQ SCH ×2 (08:20→19:49)
--- NOTE | 2023-06-16 08:25 | Hospitalist Progress Note ---
Date of Service June 16, 2023 Assessment & Plan (1) Falls frequently: Plan: Progressive weakness and Alzheimer's dementia with gradual deconditioning Suspect chronic progressive decline acutely worse in the setting of UTI. Treatment of UTI as below Has seen cardiology for syncope and has a cardiac recorder recently interrogated and with cardiology follow-up 06/01/2023. No tachycardia, bradycardia, pauses, or A-fib noted on her device at that time. Patient denied syncope (however feels legs giving out/weak), reports weakness causing her to fall. Denies of focal weakness. Somewhat limited exam due to cognitive status. 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 No history of hepatitis or alcohol abuse. Does have history of DMII. Transaminases not elevated. Ammonia wnl. Bowel regimen to be continued given constipation at baseline as below (see vit D) B12 wnl TSH as below, low, adjustment to 6x/wk dosing recommended at ca and repeat TFT outpt pcp + UA/urine culture w/ [facility]OLI. Resistant to Amp/Unasyn, cefazolin. Intermediate to Zosyn and Augmentin. Ceftriaxone transitioned to Ciprofloxacin. -per discussion w/ supervising provider to complete additional 3 days (end date 06/18) Lasix 20mg PO x 1 given 06/15 for slight LE edema/hx cirrhosis and on home med rec/not ordered. Patient reports she doesn't always take this (noting hx dementia) -continued daily for now, tolerating without report lightheaded/dizziness, BP 113/65 and renal function stable and will monitor. Cough improved w/ such but CXR on admit w/o acute process PT/OT consulted, recs rehab - P2P denied [facility] but approved SNF. CM following and [facility] can accept but no bed until next week. CM to follow (2) UTI (urinary tract infection): Plan: Incontinent at baseline, however has been soiling pads with increased frequency/burning and suprapubic discomfort days prior reported Improvement in PO intake, +BM 06/14 w/ bowel regimen and reported additional bowel movement 06/16 Urine cx ecoli as above, transitioning to Ciprofloxacin to complete treatment (3) Dementia: Plan: Alzheimer's dementia.Follows with a memory specialist as outpatient Continue donepezil Is with potential acute deterioration due to superimposed UTI, baseline has been downtrending over the last year with increasing fall frequency as noted Appears pleasant/cooperative but only alert to person (not place/year at present) Synthroid adjustment as above, B12 not deficient Frequent orientation, calm/cooperative to care. appears at baseline (4) Type 2 diabetes mellitus: Plan: Most recent A1c 6.3 --> 6.6 on repeat Only on metformin 500mg daily at home, held during admission BSG AC/HS, sliding scale insulin and BSGs acceptable Basal deferred due to age, BMI and risk of hypoglycemia DM diet ordered Monitor Presently on metformin once daily (CrCl currently 44.9 but prior not reportable/30s). --> Hesitant to increase such given reasonable A1c w/ hx dementia and want to prevent hypoglycemia. Defer to f/u discussion w/ PCP outpatient (5) Syncope, vasovagal: Plan: Reports her fall leading to admission today was without syncope, but she did hit her head. No acute findings on CThead/C-spine/lumbar spine or pelvis x-ray Tx UTI as above, PT/OT evals w/ recs for rehab (6) Refusal of blood transfusions as patient is Jainism: Plan: Noted. Patient may not relieve receive blood transfusion under any circumstances. Transfusion is not indicated at this time B12 not deficient, no bleeding reported (7) Vitamin D deficiency: Plan: prior hx of such, on 1000IU daily Ca 10.0, issues w/ constipation at baseline. Checked Vit D --> 99.3 --> STOPPED further Vitamin D supplementation as can cause elevated calcium/confusion/AMS from such. should discontinue at dc as well on med rec (8) Hypothyroidism: Plan: TSH checked given constipation issues/prior admission w/ adjustment -TSH LOW0.061. FT4 1.5 but prior FT4 low at 0.58 and had her dose adjusted prior to that admission - held Synthroid for 06/14, resumed 06/15 - would continue 6x/wk given current rx but can consider new rx for 50mcg daily. Could also consider alternating dose 50/75mcg given prior adjustments however for ease of admin probably just easier to drop a dose once weekly in the meantime. -will need adjusted on dc med rec to 6x/wk, repeat TFT w/ PCP in 4-6 wks Hx cirrhosis - no acute decompensation at present time, but reported occassional cough. RSV/flu/covid negative on admission. ammonia not elevated, moving bowels - lasix 20mg PO daily on med list (will need to discuss w/ , but given dose for given trace LE edema/cough to see if improvement and has and will continue no significant pulm edema on CXR on admission) (9) Constipation: Plan: Chronic issues w/ constipation at baseline, moves bowels q2d at baseline per patient Hx cirrhosis, ammonia not elevated as above Bowel regimen added w/ colace BID, +BM 06/14 and continued on such Ca was 10.0/normal albumin on admission but had been on vitamin D supplementation and checked Vit D level to see if over correction/constipation contribution Vit D HIGH normal at 99.3 and STOPPED VIT D supp --> stop @ dc Continues to move her bowels Plan CODE STATUS: DNR/DNI DVT prophylaxis: heparin SQ while inpatient updated afternoon 06/13 at bedside, have left voicemail since but has been visiting daily and in contact w/ case management Planning for rehab at [facility] likely no beds until next week. CM following Admission and Anticipated Discharge Date Admission Date: June 12, 2023 Subjective Eval this morning, sitting up at side of bed. Just moved her bowels. Feeling well. Denied [facility] but approved for SNF> CM following and referrals to be sent but will let her know when bed available. Eating/drinking without issue. No CP/SOB, abdominal pain/nausea or vomiting. Tolerated lasix, decreased LE edema, calves nontender. Labs from AM pending since resuming the lasix and will monitor. Questions/concerns addressed at this time. Physical Exam 2 Physical Exam: General: WD frail elderly female sitting up in bed, NAD, appears improved. alert to person but thought in [place] initially/year 2005 but pleasant/cooperative otherwise Head atraumatic, normocephalic, mm slightly dry but improved with drink of water, trachea midline Resp: even/unlabored, no tachypnea, slightly diminished in the bases but no w/c/r, on room air 97% CV: RRR, no significant murmur, trace pedal edema improved, calves nontender, pulses palpable GI: +BS, soft, no further suprapubic discomfort : no braga MSK/Neuro/psych: generalized weakness 3/5, nonfocal, strength equal bilaterally, no slurred speech/facial droop, answering questions appropriately (albeit confused w/ orientation at times) Results & Data Results & Data Vital Signs (Past 12 Hours) Vital Signs Temp Pulse Resp BP Pulse Ox O2 Del Method 06/16/23 07:21 36.6 C 52 L 16 113/65 97 Room Air Laboratory Results 06/13/23 08:47 06/16/23 09:14 PG Care Time/CCT Total # of Minutes Spent Total Time Spent with Patient: Total time spent is greater than 50% in coordination of care (as documented) at patient's floor/unit and/or counseling patient: Coding Level of Care Code 59325 SUB INP/OBS CARE 2/35MIN Diagnoses Falls frequently R29.6 UTI (urinary tract infection) N39.0 Dementia F03.90 Type 2 diabetes mellitus E11.9 Syncope, vasovagal R55 Refusal of blood transfusions as patient is Jainism Z53.1 Vitamin D deficiency E55.9 Hypothyroidism E03.9 Constipation K59.00
[2023-06-16] MEDS: INSULIN ASPART PER UNIT CHARGE SC SCH ×4 (08:54→21:22)
[2023-06-16] MEDS: ESCITALOPRAM OXALATE 20 MG TAB PO SCH (09:51)
[2023-06-16 10:01] LABS: BUN Creatinine Ratio 16.3 (10-20); Calcium 9.1 mg/dl (8.6-10.3); Creatinine Clr Calc Pharmacy 41.2 ml/min; Est GFR (African American) 63.1 ml/min; Est GFR (Non-African American) 54.5 ml/min; Potassium 4.2 mmol/L (3.5-5.1)
[2023-06-16] MEDS: ACETAMINOPHEN 325 MG TAB PO PRN (16:43)
[2023-06-17] MEDS: LEVOTHYROXINE SODIUM 75 MCG TABLET PO SCH (05:53)
--- NOTE | 2023-06-17 08:08 | Hospitalist Progress Note ---
Date of Service June 17, 2023 Assessment & Plan (1) Falls frequently: Plan: Progressive weakness and Alzheimer's dementia with gradual deconditioning Suspect chronic progressive decline acutely worse in the setting of UTI. Treatment of UTI as below Has seen cardiology for syncope and has a cardiac recorder recently interrogated and with cardiology follow-up 06/01/2023. No tachycardia, bradycardia, pauses, or A-fib noted on her device at that time. Patient denied syncope (however feels legs giving out/weak), reports weakness causing her to fall. Denies of focal weakness. Somewhat limited exam due to cognitive status. 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 No history of hepatitis or alcohol abuse. Does have history of DMII. Transaminases not elevated. Ammonia wnl. B12 wnl TSH as below, low, adjustment to 6x/wk dosing recommended at [place] and repeat TFT outpt pcp + UA/urine culture w/ [facility]I. Resistant to Amp/Unasyn, cefazolin. Intermediate to Zosyn and Augmentin. Ceftriaxone --> Ciprofloxacin PO, end date 06/18 Lasix 20mg PO x 1 given 06/15 for slight LE edema/hx cirrhosis and on home med rec/not ordered. Patient reports she doesn't always take this (noting hx dementia) -continued daily for now, tolerating without report lightheaded/dizziness, BP 152/54 and renal function stable and will monitor. Cough improved w/ such ( CXR on admit w/o acute process, also had her lisinopril discontinued by PCP in past 6 months) -Bowel regimen to be continued given constipation at baseline as below (see vit D). BM daily while inpatient noted. Should likely continue bowel regimen at [place] PT/OT consulted, recs rehab - P2P denied [facility] but approved SNF. CM following and [facility] can accept but no bed until next week, hopefully Monday. CM following (2) UTI (urinary tract infection): Plan: Incontinent at baseline, however has been soiling pads with increased frequency/burning and suprapubic discomfort days prior reported Urine cx ecoli as above, Cipro to complete 06/18 to complete treatment Improvement in symptoms since treatment (3) Dementia: Plan: Alzheimer's dementia.Follows with a memory specialist as outpatient Continue donepezil Is with potential acute deterioration due to superimposed UTI, baseline has been downtrending over the last year with increasing fall frequency as noted Appears pleasant/cooperative but only alert to person (not place/year at present) Synthroid adjustment as above, B12 not deficient Frequent orientation, calm/cooperative to care. appears at baseline (4) Type 2 diabetes mellitus: Plan: Most recent A1c 6.3 --> 6.6 on repeat Only on metformin 500mg daily at home, held during admission BSG AC/HS, sliding scale insulin and BSGs acceptable Basal deferred due to age, BMI and risk of hypoglycemia DM diet ordered Monitor Presently on metformin once daily (CrCl currently 44.9 but prior not reportable/30s). --> Hesitant to increase such given reasonable A1c w/ hx dementia and want to prevent hypoglycemia. Defer to f/u discussion w/ PCP outpatient (5) Syncope, vasovagal: Plan: Reports her fall leading to admission today was without syncope, but she did hit her head. No acute findings on CThead/C-spine/lumbar spine or pelvis x-ray Tx UTI as above, PT/OT evals w/ recs for rehab (6) Refusal of blood transfusions as patient is Adventism: Plan: Noted. Patient may not relieve receive blood transfusion under any circumstances. 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 TSH as above Checked Vit D and was high normal @ 99.3 --> STOPPED further Vitamin D supplementation as can cause elevated calcium/confusion/AMS from such. should discontinue at dc as well on med rec (8) Hypothyroidism: Plan: TSH checked given constipation issues/prior admission w/ adjustment -TSH LOW0.061. FT4 1.5 but prior FT4 low at 0.58 and had her dose adjusted prior to that admission - HELD Synthroid for 06/14, resumed 06/15 - would continue 6x/wk given current rx but can consider new rx for 50mcg daily. Could also consider alternating dose 50/75mcg given prior adjustments however for ease of admin probably just easier to drop a dose once weekly in the meantime. Will need adjusted on dc med rec to 6x/wk (skip dose upcoming monday) Repeat TFT w/ PCP in 4-6 wks Hx cirrhosis No acute decompensation at present time, but reported occasional cough. RSV/flu/covid negative on admission. Recentld dc lisinopril as above ammonia not elevated, moving bowels w/ bowel regimen and continued Lasix 20mg PO continued daily, resolution in LE edema, no cough during encounter and would continue daily unless having symptoms/elevated BUN/Cr. Will repeat BMP in AM to ensure continued stability (9) Constipation: Plan: Chronic issues w/ constipation at baseline, moves bowels q2d at baseline per patient Hx cirrhosis, ammonia not elevated as above Bowel regimen added w/ colace BID, +BM 06/14 and continued on such Ca was 10.0/normal albumin on admission but had been on vitamin D supplementation and checked Vit D level to see if over correction/constipation contribution Vit D HIGH normal at 99.3 and STOPPED VIT D supp --> stop @ dc Continues to move her bowels Plan CODE STATUS: DNR/DNI DVT prophylaxis: heparin SQ while inpatient Planning for [facility] for SNF, hopefully bed as early as Monday. CM following Updated on plan 06/17 Admission and Anticipated Discharge Date Admission Date: June 12, 2023 Subjective Evaluated this morning, small BM reported. Feeling well. To complete abx tomor row. No nausea/vomiting. Good appetite reported. Pleasant during encounter. No lightheaded/dizziness, tolerating the daily lasix and discussed continuing daily to maintain volume status unless having symptoms/issues. Questions/concerns addressed at this time. Hopeful dc to [facility] on monday if bed available. Physical Exam Physical Exam: General: WD frail female resting in bed, NAD Head atraumatic, normocephalic, mmm, trachea midline Resp even/unlabored, no w/c/r, no cough, on room air CV: RRR, +sysolic murmur, no further edema/trace pedal edema, calves nontender GI: +BS, soft/NT, no further suprapubic discomfort : no braga MSK/Neuro:generalized weakness 4/5 throughout but improved, nonfocal, no slurred speech/facial droop Psych: alert to person/hospital, not year/time, cooperative stable dementia at baseline Results & Data Results & Data Vital Signs (Past 12 Hours) Vital Signs Temp Pulse Resp BP Pulse Ox O2 Del Method 06/17/23 07:27 36.6 C 81 18 152/54 H 94 Room Air Laboratory Results 06/17/23 06/16/23 06/16/23 Range/Units 07:52 20:17 16:37 Sodium (136-145) mmol/L Potassium (3.5-5.1) mmol/L Chloride (98-107) mmol/L Carbon Dioxide (21-32) mmol/L Anion Gap (3-11) BUN (6-23) mg/dl Creatinine (0.6-1.2) mg/dl Est Cr Clr Drug Dosing ml/min Est GFR ( Amer) ml/min Est GFR (Non-Af Amer) ml/min BUN/Creatinine Ratio (10-20) Glucose (70-99(Fasting)) mg/dl POC Glucose 130 H 92 165 H (70-99) mg/dl Calcium (8.6-10.3) mg/dl 06/16/23 06/16/23 Range/Units 11:25 09:14 Sodium 137 (136-145) mmol/L Potassium 4.2 (3.5-5.1) mmol/L Chloride 106 (98-107) mmol/L Carbon Dioxide 23 (21-32) mmol/L Anion Gap 8 (3-11) BUN 16 (6-23) mg/dl Creatinine 0.98 (0.6-1.2) mg/dl Est Cr Clr Drug Dosing 41.2 ml/min Est GFR ( Amer) 63.1 ml/min Est GFR (Non-Af Amer) 54.5 ml/min BUN/Creatinine Ratio 16.3 (10-20) Glucose 176 H (70-99(Fasting)) mg/dl POC Glucose 131 H (70-99) mg/dl Calcium 9.1 (8.6-10.3) mg/dl PG Care Time/CCT Total # of Minutes Spent Total Time Spent with Patient: Total time spent is greater than 50% in coordination of care (as documented) at patient's floor/unit and/or counseling patient: Coding Level of Care Code 22443 SUB INP/OBS CARE 2/35MIN Diagnoses Falls frequently R29.6 UTI (urinary tract infection) N39.0 Dementia F03.90 Type 2 diabetes mellitus E11.9 Syncope, vasovagal R55 Refusal of blood transfusions as patient is Adventism Z53.1 Vitamin D deficiency E55.9 Hypothyroidism E03.9 Constipation K59.00
[2023-06-17] MEDS: amLODIPine BESYLATE 5 MG TAB PO SCH (08:37)
[2023-06-17] MEDS: INSULIN ASPART PER UNIT CHARGE SC SCH ×4 (08:37→21:28)
[2023-06-17] MEDS: CETIRIZINE HCL 10 MG TABLET PO SCH (08:38)
[2023-06-17] MEDS: ATORVASTATIN 10 MG TAB PO SCH (08:38)
[2023-06-17] MEDS: CIPROFLOXACIN 500 MG TAB PO SCH ×2 (08:38→21:35)
[2023-06-17] MEDS: CYANOCOBALAMIN (B-12) 500 MCG TABLET PO SCH (08:38)
[2023-06-17] MEDS: DOCUSATE SODIUM 100 MG CAP PO SCH ×2 (08:39→21:36)
[2023-06-17] MEDS: DONEPEZIL HCL 5 MG TAB PO SCH (08:39)
[2023-06-17] MEDS: ESCITALOPRAM OXALATE 20 MG TAB PO SCH (08:39)
[2023-06-17] MEDS: FUROSEMIDE 20 MG TAB PO SCH (08:40)
[2023-06-17] MEDS: MULTIVITAMIN TAB PO SCH (08:40)
[2023-06-17] MEDS: MAGNESIUM OXIDE 400 MG TAB PO SCH ×3 (08:40→21:35)
[2023-06-17] MEDS: PANTOprazole 40 MG TAB PO SCH ×2 (08:40→21:35)
[2023-06-17] MEDS: POTASSIUM CHLORIDE 10 MEQ TABCR PO SCH (08:41)
[2023-06-17] MEDS: HEPARIN SOD 5,000 UNIT/0.5 ML VIAL SQ SCH ×2 (08:43→21:36)
[2023-06-17] MEDS: ACETAMINOPHEN 325 MG TAB PO PRN (23:04)
[2023-06-18] MEDS: LEVOTHYROXINE SODIUM 75 MCG TABLET PO SCH (05:24)
[2023-06-18 07:22] LABS: BUN Creatinine Ratio 20.5 (10-20); Calcium 9.2 mg/dl (8.6-10.3); Creatinine Clr Calc Pharmacy 45.9 ml/min; Est GFR (African American) 71.9 ml/min; Est GFR (Non-African American) 62.1 ml/min; Potassium 4.1 mmol/L (3.5-5.1)
--- NOTE | 2023-06-18 07:53 | Hospitalist Progress Note ---
Date of Service June 18, 2023 Assessment & Plan (1) Falls frequently: Plan: Progressive weakness and Alzheimer's dementia with gradual deconditioning Suspect chronic progressive decline acutely worse in the setting of UTI. Treatment of UTI as below Has seen cardiology for syncope and has a cardiac recorder recently interrogated and with cardiology follow-up 06/01/2023. No tachycardia, bradycardia, pauses, or A-fib noted on her device at that time. Patient denied syncope (however feels legs giving out/weak), reports weakness causing her to fall. Denies of focal weakness. Somewhat limited exam due to cognitive status. 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 No history of hepatitis or alcohol abuse. Does have history of DMII. Transaminases not elevated. Ammonia wnl. B12 wnl TSH as below, low, adjustment to 6x/wk dosing recommended at ne and repeat TFT outpt pcp + Urine- Cx w/ ECOLI, Resistant to Amp/Unasyn, cefazolin. Intermediate to Zosyn and Augmentin. Ceftriaxone --> Ciprofloxacin PO, end date 06/18 Lasix 20mg PO x 1 given 06/15 for slight LE edema/hx cirrhosis and on home med rec/not ordered. -continue lasix 20mg PO daily for now -tolerating without report lightheaded/dizziness, BP 134/65 and renal function continues to stay stable. discussed w/ 06/17 about likely continuing low dose given hx cirrhosis -Cough improved w/ such ( CXR on admit w/o acute process, also had her lisinopril discontinued by PCP in past 6 months). Did have episode of coughing this morning after breakfast. No SOB/hypoxia noted and will monitor Bowel regimen to be continued given constipation at baseline as below (see vit D). BM daily while inpatient noted. Should likely continue bowel regimen at ne PT/OT consulted, recs rehab - P2P denied [facility] but approved SNF. [facility] but no bed until next week, hopefully Monday. 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 TSH as above Checked Vit D and was high normal @ 99.3 --> STOPPED further Vitamin D supplementation as can cause elevated calcium/confusion/AMS from such. should discontinue at dc as well on med rec (4) Hypothyroidism: Plan: TSH checked given constipation issues/prior admission w/ adjustment -TSH LOW0.061. FT4 1.5 but prior FT4 low at 0.58 and had her dose adjusted prior to that admission - HELD Synthroid for 06/14, resumed 06/15 - would continue 6x/wk given current rx but can consider new rx for 50mcg daily. Could also consider alternating dose 50/75mcg given prior adjustments however for ease of admin probably just easier to drop a dose once weekly in the meantime. Synthroid will need adjusted on dc med rec to 6x/wk (skip dose upcoming monday) Repeat TFT w/ PCP in 4-6 wks Hx cirrhosis No acute decompensation at present time, but reported occasional cough. RSV/flu/covid negative on admission. Recently dc'd lisinopril as above ammonia not elevated, moving bowels w/ bowel regimen and continued Lasix 20mg PO continued daily, resolution in LE edema, no cough during encounter (but had episode 06/18) and would continue daily unless having symptoms/elevated BUN/Cr. Labs stable this morning (5) Constipation: Plan: Chronic issues w/ constipation at baseline, moves bowels q2d at baseline per patient Hx cirrhosis, ammonia not elevated as above Bowel regimen added w/ colace BID, +BM 06/14 and continued on such Ca was 10.0/normal albumin on admission but had been on vitamin D supplementation and checked Vit D level to see if over correction/constipation contribution Vit D HIGH normal at 99.3 and STOPPED VIT D supp --> stop @ dc Continues to move her bowels (6) Dementia: Plan: Alzheimer's dementia.Follows with a memory specialist as outpatient Continue donepezil Is with potential acute deterioration due to superimposed UTI, baseline has been downtrending over the last year with increasing fall frequency as noted Appears pleasant/cooperative but only alert to person (not place/year at present) Synthroid adjustment as above, B12 not deficient Frequent orientation, calm/cooperative to care. appears at baseline (7) Type 2 diabetes mellitus: Plan: Most recent A1c 6.3 --> 6.6 on repeat Only on metformin 500mg daily at home, held during admission BSG AC/HS, sliding scale insulin and BSGs acceptable Basal deferred due to age, BMI and risk of hypoglycemia DM diet ordered Monitor Presently on metformin once daily (CrCl currently 44.9 but prior not reportable/30s). --> Hesitant to increase such given reasonable A1c w/ hx dementia and want to prevent hypoglycemia. Defer to f/u discussion w/ PCP outpatient (8) Syncope, vasovagal: Plan: Reports her fall leading to admission today was without syncope, but she did hit her head. No acute findings on CThead/C-spine/lumbar spine or pelvis x-ray Tx UTI as above, PT/OT evals w/ recs for rehab (9) Refusal of blood transfusions as patient is Jain: Plan: Noted. Patient may not relieve receive blood transfusion under any circumstances. Transfusion is not indicated at this time B12 not deficient, no bleeding reported Plan CODE STATUS: DNR/DNI DVT prophylaxis: heparin SQ while inpatient Updated on plan 06/17 Planning for [facility] for SNF, hopefully bed Monday (06/19). CM following Admission and Anticipated Discharge Date Admission Date: June 12, 2023 Subjective Eval this morning, sitting up in bed, NAD. Did have some coughing this morning after breakfast, chronic cough (much improved day prior).SHe notes her legs look great since being in the hospital and discussed continuing her diuretic daily as discussed with last evening as labs remain stable. No fever/chills, chest pain, shortness of breath, nausea/vomiting. Planning [facility] hopefully tomorrow. Physical Exam 2 Physical Exam: General: WD frail female resting in bed, NAD Head atraumatic, normocephalic, mmm, trachea midline Resp even/unlabored, no w/c/r, no cough, on room air CV: RRR, +sysolic murmur, no further edema/trace pedal edema, calves nontender GI: +BS, soft/NT, no further suprapubic discomfort (some cramping noted at times) : no braga MSK/Neuro:generalized weakness 4/5 throughout but improved, nonfocal, no slurred speech/facial droop Psych: alert to person/hospital, not year/time, cooperative stable dementia at baseline Results & Data Results & Data Vital Signs (Past 12 Hours) Vital Signs Temp Pulse Resp BP Pulse Ox O2 Del Method 06/18/23 07:18 36.8 C 55 L 18 134/65 97 Room Air 06/17/23 21:30 36.8 C 59 L 18 119/57 L 97 Room Air Laboratory Results 06/13/23 08:47 06/18/23 06:29 PG Care Time/CCT Total # of Minutes Spent Total Time Spent with Patient: Total time spent is greater than 50% in coordination of care (as documented) at patient's floor/unit and/or counseling patient: Coding Level of Care Code 12765 SUB INP/OBS CARE 2/35MIN Diagnoses Falls frequently R29.6 UTI (urinary tract infection) N39.0 Vitamin D deficiency E55.9 Hypothyroidism E03.9 Constipation K59.00 Dementia F03.90 Type 2 diabetes mellitus E11.9 Syncope, vasovagal R55 Refusal of blood transfusions as patient is Jain Z53.1
[2023-06-18] MEDS: CIPROFLOXACIN 500 MG TAB PO SCH (08:36)
[2023-06-18] MEDS: DOCUSATE SODIUM 100 MG CAP PO SCH ×2 (08:36→21:05)
[2023-06-18] MEDS: ATORVASTATIN 10 MG TAB PO SCH (08:36)
[2023-06-18] MEDS: PANTOprazole 40 MG TAB PO SCH ×2 (08:36→21:01)
[2023-06-18] MEDS: MAGNESIUM OXIDE 400 MG TAB PO SCH ×3 (08:36→21:00)
[2023-06-18] MEDS: amLODIPine BESYLATE 5 MG TAB PO SCH (08:37)
[2023-06-18] MEDS: CETIRIZINE HCL 10 MG TABLET PO SCH (08:37)
[2023-06-18] MEDS: ESCITALOPRAM OXALATE 20 MG TAB PO SCH (08:37)
[2023-06-18] MEDS: POTASSIUM CHLORIDE 10 MEQ TABCR PO SCH (08:37)
[2023-06-18] MEDS: MULTIVITAMIN TAB PO SCH (08:37)
[2023-06-18] MEDS: DONEPEZIL HCL 5 MG TAB PO SCH (08:37)
[2023-06-18] MEDS: CYANOCOBALAMIN (B-12) 500 MCG TABLET PO SCH (08:37)
[2023-06-18] MEDS: FUROSEMIDE 20 MG TAB PO SCH (08:37)
[2023-06-18] MEDS: INSULIN ASPART PER UNIT CHARGE SC SCH ×4 (08:46→21:04)
[2023-06-18] MEDS: HEPARIN SOD 5,000 UNIT/0.5 ML VIAL SQ SCH ×2 (08:47→21:01)
[2023-06-18] MEDS: BENZONATATE 100 MG CAPSULE PO PRN (21:00)
[2023-06-19] MEDS: LEVOTHYROXINE SODIUM 75 MCG TABLET PO SCH (05:24)
[2023-06-19] MEDS: BENZONATATE 100 MG CAPSULE PO PRN ×2 (05:25→20:23)
--- NOTE | 2023-06-19 07:58 | Hospitalist Progress Note ---
Date of Service June 19, 2023 Assessment & Plan (1) Falls frequently: Plan: Progressive weakness and Alzheimer's dementia with gradual deconditioning Suspect chronic progressive decline acutely worse in the setting of UTI. Treatment of UTI as below Has seen cardiology for syncope and has a cardiac recorder recently interrogated and with cardiology follow-up 06/01/2023. No tachycardia, bradycardia, pauses, or A-fib noted on her device at that time. Patient denied syncope (however feels legs giving out/weak), reports weakness causing her to fall. Denies of focal weakness. Somewhat limited exam due to cognitive status. 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 No history of hepatitis or alcohol abuse. Does have history of DMII. Transaminases not elevated. Ammonia wnl. B12 wnl TSH as below, low, adjustment to 6x/wk dosing recommended at al and repeat TFT outpt pcp Urine cx ecoli, transitioned from Ceftriaxone --> Cipro, completed abx course 06/18 Lasix 20mg PO resumed given LE edema/hx cirrhosis and hadn't been taking at home. Cough/LE edema improved w/ such and continued daily and renal function stable. To continue at al Bowel regimen continued (ammonia wnl on admit) --> +BM almost daily without issue. Continued bowel regimen at dc (Vit D also stopped, level was 99.3 on check, likely contribuing to worsened constipation) PT/OT recs rehab, [facility] denied and planning [facility]. Accepted and can dc to [facility] if bed available today - did update this weekend on possible dc Monday if bed available. CM to let me know. (2) UTI (urinary tract infection): Plan: Incontinent at baseline, however has been soiling pads with increased frequency/burning and suprapubic discomfort days prior reported Completed course abx inpatient as outlined above. 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 TSH as above Checked Vit D and was high normal @ 99.3 --> STOPPED further Vitamin D supplementation as can cause elevated calcium/confusion/AMS/worsened constipation from such DISCONTINUE PO SUPP AT DC (4) Hypothyroidism: Plan: TSH checked given constipation issues/prior admission w/ adjustment -TSH LOW0.061. FT4 1.5 but prior FT4 low at 0.58 and had her dose adjusted prior to that admission - HELD Synthroid for 06/14, resumed 06/15 - would continue 6x/wk given current rx but can consider new rx for 50mcg daily. Could also consider alternating dose 50/75mcg given prior adjustments however for ease of admin probably just easier to drop a dose once weekly in the meantime. Synthroid will need adjusted on dc med rec to 6x/wk (skip dose upcoming monday - changed on med rec for discharge planning) Will need repeat TFT w/ PCP in 4-6 wks Hx cirrhosis No acute decompensation at present time, but reported occasional cough. RSV/flu/covid negative on admission. Recently dc'd lisinopril as above ammonia not elevated, moving bowels w/ bowel regimen and continued Lasix 20mg PO continued daily as outlined above (5) Constipation: Plan: Chronic issues w/ constipation at baseline, moves bowels q2d at baseline per patient Hx cirrhosis, ammonia not elevated as above Bowel regimen added w/ colace BID and moving her bowels almost daily Ca was 10.0/normal albumin on admission but had been on vitamin D supplementation and checked Vit D level to see if over correction/constipation contribution Vit D HIGH normal at 99.3 and STOPPED VIT D supp --> stopped PO @ dc would continue bowel regimen at dc to prevent constipation (6) Dementia: Plan: Alzheimer's dementia.Follows with a memory specialist as outpatient Continue donepezil Is with potential acute deterioration due to superimposed UTI, baseline has been downtrending over the last year with increasing fall frequency as noted Appears pleasant/cooperative but only alert to person (not place/year at present) Synthroid adjustment as above, B12 not deficient Frequent orientation, calm/cooperative to care. appears at baseline/improved over the past week w/ treatment (7) Type 2 diabetes mellitus: Plan: Most recent A1c 6.3 --> 6.6 on repeat Only on metformin 500mg daily at home, held during admission BSG AC/HS, sliding scale insulin and BSGs acceptable Basal deferred due to age, BMI and risk of hypoglycemia DM diet ordered Monitor Presently on metformin once daily (CrCl currently 45.9 but prior not reportable/30s) --> Hesitant to increase such given reasonable A1c w/ hx dementia and want to prevent hypoglycemia. Defer to f/u discussion w/ PCP outpatient (8) Syncope, vasovagal: Plan: Reports her fall leading to admission today was without syncope, but she did hit her head. No acute findings on CThead/C-spine/lumbar spine or pelvis x-ray Tx UTI as above, PT/OT evals w/ recs for rehab (9) Refusal of blood transfusions as patient is Mu-ism: Plan: Noted. Patient may not relieve receive blood transfusion under any circumstances. Transfusion is not indicated at this time B12 not deficient, no bleeding reported Plan CODE STATUS: DNR/DNI DVT prophylaxis: heparin SQ while inpatient Updated this weekend, can dc to [facility] when bed confirmed. CM to let me know --> had a bed but that patient did not get discharged however we have auth and will hopefully plan for dc 06/20. instructions completed, just needs dc order in am 06/20 unless any issues. Admission and Anticipated Discharge Date Admission Date: June 12, 2023 Subjective Eval this mrning, feeling well. COmpleted abx for UTI. No cough, continues on low dose lasix. To [facility] today if bed available. Questions/concerns addressed at this time. Physical Exam 2 Physical Exam: General: WD frail female sitting up in recliner, appears improved, NAD, cooperative with care Head atraumatic, normocephalic, mmm, trachea midline Resp even/unlabored, no w/c/r, no cough, on room air CV: RRR, +systolic murmur, pedal edema RESOLVED GI: +BS, soft/NT, no further distension : no braga MSK/Neuro:generalized weakness 4/5 throughout but improved, nonfocal, no slurred speech/facial droop Psych: alert to person/hospital, not year/time, cooperative stable dementia at baseline Results & Data Results & Data Vital Signs (Past 12 Hours) Vital Signs Temp Pulse Resp BP BP Pulse Ox O2 Del Method 06/19/23 07:24 36.8 C 64 18 137/61 96 Room Air 06/19/23 01:24 57 L 18 98 Room Air 06/18/23 21:52 36.6 C 82 16 108/68 98 Room Air 06/18/23 20:30 Room Air Laboratory Results 06/13/23 08:47 06/18/23 06:29 PG Care Time/CCT Total # of Minutes Spent Total Time Spent with Patient: Total time spent is greater than 50% in coordination of care (as documented) at patient's floor/unit and/or counseling patient: Coding Level of Care Code 22761 SUB INP/OBS CARE 2/35MIN Diagnoses Falls frequently R29.6 UTI (urinary tract infection) N39.0 Vitamin D deficiency E55.9 Hypothyroidism E03.9 Constipation K59.00 Dementia F03.90 Type 2 diabetes mellitus E11.9 Syncope, vasovagal R55 Refusal of blood transfusions as patient is Mu-ism Z53.1
[2023-06-19] MEDS: CYANOCOBALAMIN (B-12) 500 MCG TABLET PO SCH (08:06)
[2023-06-19] MEDS: ESCITALOPRAM OXALATE 20 MG TAB PO SCH (08:06)
[2023-06-19] MEDS: amLODIPine BESYLATE 5 MG TAB PO SCH (08:06)
[2023-06-19] MEDS: ATORVASTATIN 10 MG TAB PO SCH (08:06)
[2023-06-19] MEDS: CETIRIZINE HCL 10 MG TABLET PO SCH (08:07)
[2023-06-19] MEDS: FUROSEMIDE 20 MG TAB PO SCH (08:07)
[2023-06-19] MEDS: DONEPEZIL HCL 5 MG TAB PO SCH (08:07)
[2023-06-19] MEDS: MAGNESIUM OXIDE 400 MG TAB PO SCH ×3 (08:08→20:23)
[2023-06-19] MEDS: PANTOprazole 40 MG TAB PO SCH ×2 (08:08→20:23)
[2023-06-19] MEDS: POTASSIUM CHLORIDE 10 MEQ TABCR PO SCH (08:08)
[2023-06-19] MEDS: MULTIVITAMIN TAB PO SCH (08:08)
[2023-06-19] MEDS: INSULIN ASPART PER UNIT CHARGE SC SCH ×4 (08:12→22:26)
[2023-06-19] MEDS: DOCUSATE SODIUM 100 MG CAP PO SCH ×2 (08:12→20:23)
[2023-06-19] MEDS: HEPARIN SOD 5,000 UNIT/0.5 ML VIAL SQ SCH ×2 (08:13→20:23)
[2023-06-20] MEDS: LEVOTHYROXINE SODIUM 75 MCG TABLET PO SCH (05:08)
[2023-06-20] MEDS: INSULIN ASPART PER UNIT CHARGE SC SCH ×2 (08:34→12:28)
[2023-06-20] MEDS: MULTIVITAMIN TAB PO SCH (08:38)
[2023-06-20] MEDS: MAGNESIUM OXIDE 400 MG TAB PO SCH ×2 (08:38→12:28)
[2023-06-20] MEDS: ESCITALOPRAM OXALATE 20 MG TAB PO SCH (08:38)
[2023-06-20] MEDS: FUROSEMIDE 20 MG TAB PO SCH (08:38)
[2023-06-20] MEDS: POTASSIUM CHLORIDE 10 MEQ TABCR PO SCH (08:38)
[2023-06-20] MEDS: PANTOprazole 40 MG TAB PO SCH (08:38)
[2023-06-20] MEDS: DONEPEZIL HCL 5 MG TAB PO SCH (08:39)
[2023-06-20] MEDS: ATORVASTATIN 10 MG TAB PO SCH (08:39)
[2023-06-20] MEDS: CYANOCOBALAMIN (B-12) 500 MCG TABLET PO SCH (08:39)
[2023-06-20] MEDS: CETIRIZINE HCL 10 MG TABLET PO SCH (08:39)
[2023-06-20] MEDS: DOCUSATE SODIUM 100 MG CAP PO SCH (08:39)
[2023-06-20] MEDS: HEPARIN SOD 5,000 UNIT/0.5 ML VIAL SQ SCH (08:39)
[2023-06-20] MEDS: amLODIPine BESYLATE 5 MG TAB PO SCH (08:39)
[2023-06-20] MEDS: BENZONATATE 100 MG CAPSULE PO PRN (12:28)
--- NOTE | 2023-06-20 13:55 | Discharge Summary ---
Discharge Summary Date of Service June 20, 2023 Notes For Next Care Provider Medication Changes From Visit Resumed lasix 20mg po daily Started trial of ipratropium nasal spray for chronic cough Stopped Vitamin D Started Miralax and docusate Admission HPI Per Admitting Provider History of dementia, liver disease who has been progressively declining at home with multiple recurrent falls. notes she is usually able to manage but hit her head for the first time. Chronic dry cough x1 month with a negative outpatient workup. Patient was seen by ER provider, due to recurrent progressive falls now with head injury and progressive weakness does not feel patient is safe for return home and would like an admission for PT/OT and placement evaluation. She has no fever, no signs of fracture on x-rays. Urine is with evidence of a UTI Has a history of syncope/falls for which she had a event monitor. REports she just gets very weak and falls, and workup overal was not helpful. had thearpy in feb/mar which helped a bit, but 'not that much' and she has continued to decline. PCP and cardiology also notd a 'chronic cough since last year' and she sees a memory specialist Dr. Lorenzo for alzheimers, but has continued to decline. Therapy stopped in Mar, weaker in the last 2 months, and now weakness has progressed to multiple falls and 1x fall hitting her head prior to admission. No focal weakness. Much more confused than normal for at least the last few weeks. Normally is not oriented to day/year. No sudden change, but continuing to progressively decline Incontinent at baseline with pads. 6-8 voids daily now, and pads have to be changed daily in the last few days and with a more foul odor. No fever/chills. Denies chest pain/chest pressure Medical History: Reviewed Medications: Reviewed Surgical History: Reviewed Family history: Reviewed Allergies: Reviewed Social History: Reviewed Code Status:DNR Principal Dx & Hospital Course #1 = Principal Diagnosis (1) Falls frequently: Progressive weakness and Alzheimer's dementia with gradual deconditioning Suspect chronic progressive decline acutely worse in the setting of UTI. Treatment of UTI as below Has seen cardiology for syncope and has a cardiac recorder recently interrogated and with cardiology follow-up 06/01/2023. No tachycardia, bradycardia, pauses, or A-fib noted on her device at that time. Patient denied syncope (however feels legs giving out/weak), reports weakness causing her to fall. Denies of focal w eakness. Somewhat limited exam due to cognitive status. 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 No history of hepatitis or alcohol abuse. Does have history of DMII. Transaminases not elevated. Ammonia wnl. B12 wnl TSH as below, low, adjustment to 6x/wk dosing recommended at or and repeat TFT outpt pcp Urine cx ecoli, transitioned from Ceftriaxone --> Cipro, completed abx course 06/18 Lasix 20mg PO resumed given LE edema/hx cirrhosis and hadn't been taking at home. Cough/LE edema improved w/ such and continued daily and renal function stable. To continue at or Bowel regimen continued (ammonia wnl on admit) --> +BM almost daily without issue. Continued bowel regimen at or (Vit D also stopped, level was 99.3 on check, likely contribuing to worsened constipation) Initially awaiting rehab placement but has improved and will go home with home health (2) UTI (urinary tract infection): Incontinent at baseline, however has been soiling pads with increased frequency/burning and suprapubic discomfort days prior reported Completed course abx inpatient as outlined above. 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 TSH as above Checked Vit D and was high normal @ 99.3 --> STOPPED further Vitamin D supplementation as can cause elevated calcium/confusion/AMS/worsened constipation from such (4) Hypothyroidism: TSH checked given constipation issues/prior admission w/ adjustment -TSH low at 0.061. FT4 1.5 but prior FT4 low at 0.58 and had her dose adjusted prior to that admission -lower dose to 75 mcg 6x/wk (5) Constipation: Chronic issues w/ constipation at baseline, moves bowels q2d at baseline per patient Hx cirrhosis, ammonia not elevated as above Bowel regimen added w/ colace BID, Miralax and moving her bowels almost daily dc Vitamin D (6) Dementia: Alzheimer's dementia.Follows with a memory specialist as outpatient Continue donepezil (7) Type 2 diabetes mellitus: Most recent A1c 6.3 --> 6.6 on repeat Only on metformin 500mg daily at home, held during admission and can hold on discharge due to GI issues as per previous hospitalist Plan CODE STATUS: DNR/DNI DVT prophylaxis: heparin SQ while inpatient Dispo-dc to home with home health Discharge Exam Constitutional WD/WN, vitals as above ENMT external ear and nose normal, oropharynx normal Respiratory normal respiratory effort, lungs clear to auscultation Cardiovascular RRR, no murmur, no edema Skin no rashes, warm and dry Psychiatric A+Ox3, euthymic affect Updated Medication List Medication Instructions Recorded Confirmed Type lancets #50 ea 12/17/18 06/01/23 Rx multivitamin 1 tab PO QAM 12/17/18 06/12/23 History cholecalciferol (vitamin D3) 25 1,000 units PO QAM 04/04/19 06/12/23 History mcg (1,000 unit) capsule blood sugar diagnostic #100 ea 05/31/19 06/01/23 Rx cyanocobalamin (vitamin B-12) 500 1,000 mcg (2 x 500 mcg) PO QAM #30 03/26/22 06/12/23 Rx mcg tablet tabs atorvastatin 10 mg tablet 10 mg PO DAILY #100 tabs 08/17/22 06/12/23 Rx albuterol sulfate 90 mcg/actuation 2 inh inhalation Q6H cough #1 ea 08/23/22 06/12/23 Rx breath activated powder inhaler,sensor (Proair Digihaler) donepezil 5 mg tablet 5 mg PO DAILY #90 tabs 09/22/22 06/12/23 Rx lancets 33 gauge (OneTouch Delica #100 ea 09/28/22 06/01/23 Rx Lancets) sodium chloride, sodium See Rx Instructions .Route 11/18/22 06/12/23 Rx bicarb-nasal rinse squeeze bottle .COMPLEX #50 ea with packet (Neilmed Sinus Rinse Complete with packet) metformin 500 mg tablet 500 mg PO DAILY #100 tabs 11/21/22 06/12/23 Rx pantoprazole 40 mg tablet,delayed 40 mg PO BID #60 tabs 12/19/22 06/12/23 Rx release (Protonix) magnesium oxide 400 mg (241.3 mg 400 mg PO TID #90 tabs 12/30/22 06/12/23 Rx magnesium) tablet potassium chloride 10 mEq 10 meq PO DAILY #30 tabs 01/04/23 06/12/23 Rx tablet,extended release blood sugar diagnostic (OneTouch #50 ea 01/17/23 06/01/23 Rx Verio test strips) cetirizine 10 mg tablet (Zyrtec) 10 mg PO DAILY allergy symptoms 01/26/23 06/12/23 Rx #90 tabs Synthroid 75 mcg tablet 75 mcg PO DAILY #30 tabs 02/20/23 06/12/23 Rx (levothyroxine) escitalopram oxalate 20 mg tablet 20 mg PO QAM #90 tabs 05/24/23 06/12/23 Rx amlodipine 5 mg tablet 5 mg PO DAILY #30 tabs 06/01/23 06/12/23 Rx furosemide 20 mg tablet (Lasix) 20 mg PO DAILY #30 tabs 06/01/23 06/12/23 Rx docusate sodium 100 mg capsule 100 mg PO BID #20 caps 06/18/23 Rx polyethylene glycol 3350 17 gram 17 g PO DAILY PRN constipation 7 06/18/23 Rx oral powder packet (Miralax) days #14 ea ipratropium bromide 21 mcg (0.03 2 spray intranasal BID PRN chronic 06/20/23 Rx %) nasal spray cough #30 mL Hospital Stay Data Consultations 06/12/23 13:59 ED Decision to Admit Stat Diagnostic Imagining Performed 06/12/23 11:37 CT cervical spine wo con Stat CT head/brain wo con Stat 06/12/23 11:50 CT lumbar spine wo con Stat Pending Results Patient Have Any Pending Studies at Discharge: No Discharge Instructions Given to Patient (Per Discharging Provider) You have been hospitalized for weakness and found to have a urinary tract infection. Cultures were positive for e coli and you completed a course of IV and oral antibiotics while in the hospital. You have been restarted on low dose diuretic with Lasix (furosemide) 20mg by mouth once daily to help prevent leg swelling/edema/fluid retention which can worsen the cough that you have had. Chest xray was negative for any evidence for pneumonia and you viral testing was negative for COVID/FLu/RSV. We have changed your Synthroid to SIX days a week (skipping Wednesdays). You should have repeat thyroid function testing in another 4-6 weeks to see if any further adjustment needs made. You have moved your bowels multiple times and should continue a bowel regimen to prevent constipation. I have continued colace twice daily to help keep bowel movements soft and you can continue miralax if needed. We have also STOPPED your vitamin D as this can worsen constipation and your levels were on the high side of normal and almost ABOVE normal range. Please further discuss with primary care in follow up. Please follow up with primary care in the next 7-10 days to monitor your progress after discharge. Please return to the ER with any increased abdominal pain, nausea/vomiting, inability to keep up with oral hydration or for any other symptoms concerning for you. It has been a pleasure being a part of the medical team providing for you while you have been in the hospital. Take care! Total Time Total Time Spent Total Time Spent (In Minutes): 35 min Coding Level of Care Code 12705 INP/OBS DISCH >30 MIN Diagnoses Falls frequently R29.6 UTI (urinary tract infection) N39.0 Vitamin D deficiency E55.9 Hypothyroidism E03.9 Constipation K59.00 Dementia F03.90 Type 2 diabetes mellitus E11.9
== END 2023-06-20 14:50 | disposition home health service (06) | DRG 690 ==
LOC: ED 11:26 → SUATTDRO 15:15 → INTOOBSV 15:15 → 3N 15:15

== ENCOUNTER 2023-11-19 18:50 | Inpatient (IN) ==
--- NOTE | 2023-11-19 19:48 | Emergency Department Note ---
Impression & Plan Weakness, Anemia, Recurrent falls, Acute dehydration, Acute hyperglycemia ED Provider Note NAME: ESTEPHANIE LYNN AGE: 78 SEX: F : 1945 ARRIVES VIA: Ambulance INFORMANT: Patient, Triage note, ED PROVIDER(S): Benson Barbosa MD CHIEF COMPLAINT: Weakness, fatigue, dizziness MEDICAL DECISION MAKING: Patient presents due to concern for weakness and fatigue as well as recurrence of falls. IV was established and blood work was obtained. Patient was ordered IV fluids. CT of the head ordered along with cervical spine and the patient did have plain chest x-ray performed as well. Bio fire also obtained along with an ammonia. Blood work shows a normal white count. Hemoglobin 9 which is new from comparison back in May. No reported dark or bloody stools. This may be contributing to the patient's fatigability and weakness. Kidney function slight increase in creatinine to 1.2. Patient's blood sugar 409. Sodium is low at 131 although slightly pseduohyponatremia secondary to the patient's elevated blood sugar. LFTs are unremarkable with normal troponin. Urinalysis shows glucose. BioFire negative for blood or infection. CT of the head and cervical spine are negative. Chest x-ray does not show evidence of obvious pneumothorax. I did speak with the on-call hospitalist service Dr. Garnett and the patient was admitted to the medicine service. Discussion w/ other healthcare providers: Dr. Garnett inpatient medicine service Prior /Outside records reviewed: I reviewed a cardiology visit from November 02, 2023 from [facility]. Patient with a known history of hypertension hypercholesterolemia syncope who had been seen for ongoing cough. Patient is currently on Lasix and losartan. Patient was started on Singulair at that time. No reported history of A-fib noted in the patient's past medical history of this note. Differential diagnosis: Infection, dehydration, metabolic abnormality, hypo/hyperglycemia, electrolyte imbalance, anemia, UTI, pneumonia, thyroid dysfunction among others were considered. Diagnostics, as interpreted by me: ECG: Sinus with PACs, rate of 68, normal intervals, normal axis no ST elevations. Cardiac monitoring: An order was placed for continuous cardiac monitoring. The monitor shows a rate of 65 with sinus rhythm. Patient was placed on pulse oximetry Medical decision rules: None Imaging studies: I informally interpreted the patient's chest x-ray does not show obvious pneumothorax with formal report to follow. HPI: Patient presents with at bedside and notes that the patient does have worsening memory issues. The patient reportedly has had some increasing weakness and fatigue and has had some falls. The patient did have 3 falls back in April and May as well as having a fall in September as well as falls October 24 October 28 as well as last night. Patient states he was try to go to the bathroom and stated to have some associated leg weakness and her legs gave out today as well. He was able to hold onto her but was unable to get her back up. Patient does have a history of cirrhosis. Patient's does provide the majority of the history given the memory issues. He feels like this worsened after being prescribed him Singulair and stopped this on Monday. She has had some decreased p.o. intake and appetite. They do receive Meals on Wheels and she is not eating very well. She does follow with Theo mendoza sick with . Case does get 3 to 6- month abdominal ultrasounds for history of cirrhosis. No history of alcohol abuse. Patient denies any current pain. Do not think that she struck her head measures without she takes any blood thinning medications. Patient's also states the patient has had this chronic cough. It seems to sound wet but it is nonproductive. No smoking history. I do not think that her cough is improved even after trialing the Singulair. does relate that she was going to therapy over 2-month period around July as an outpatient which seemed to improve some of her symptoms although this has gotten worse again to where she is more fatigable. She has been more sedentary and less active. Patient has not necessarily had any dizziness but has been more fatigable and weak per the patient's . PAST MEDICAL HISTORY: See Below PAST SURGICAL HISTORY: See Below SOCIAL HISTORY: See Below HOME MEDICATIONS: See Below ALLERGIES: See Below VITALS: See Below PHYSICAL EXAMINATION: GENERAL: NAD, non-toxic. EYE EXAM: Normal conjunctiva. PERRL, no anisocoria and EOM's grossly intact w/o pain. Head: Normocephalic atraumatic. OROPHARYNX: Moist mucus membranes, grossly normal dentition. NECK: Trachea midline, no stridor. Supple, no nuchal rigidity, no adenopathy, non-tender. No signs of meningismus. FROM of the neck with good chin to chest and neck extension. Mild pain to the midline without obvious step-offs. LUNGS: Clear to auscultation. Normal chest wall mechanics. HEART: NSR, no MRG. ABDOMEN: Abdomen soft, non-tender, no masses, no rebound or guarding. BACK: No CVA TTP. SKIN: No rashes and no bruising. UPPER EXTREMITIES: Upper extremities are grossly normal. No obvious TTP or deformity. Awake and alert, follows basic commands, LOWER EXTREMITIES: Grossly normal, no edema. No obvious TTP or deformity. NEURO EXAM: A&O x3, cranial nerves II-XII grossly intact, normal speech, moves all 4 extremities. Past Med/Surg History Problem List (Updated 11/20/23 @ 00:51 by Benson Barbosa MD) Acute hyperglycemia (Acute) Acute dehydration (Acute) Recurrent falls (Acute) Anemia (Acute) Weakness (Acute) Frequent falls Hyponatremia Acute kidney injury Constipation Refusal of blood transfusions as patient is Taoism Encounter for interrogation of cardiac recorder Cough Chronic cough Allergic rhinitis Recurrent syncope Status post placement of implantable loop recorder Hypomagnesemia History of syncope hx- no issues in years ADMITTED [facility] 12/31/18-EKG/ECHO /HOLTER MONITOR-NO DIAGNOSIS PER PT- Cirrhosis LGI bleed 03/2022 admitted nm Dementia Asthma mild, rarley uses inhaler Anemia (Acute) GERD (gastroesophageal reflux disease) Anxiety and depression Hyperlipidemia Lumbar spinal stenosis TMJ syndrome Type 2 diabetes mellitus Hypertension Hypothyroidism Medical History Vitamin D deficiency Falls frequently Syncope, vasovagal Seasonal allergies mild Implantable loop recorder present follows w/ Dr Milian last visit 02/2022 Acute upper GI bleed Nausea and vomiting after administration of anesthetic agent Surgical History History of esophagogastroduodenoscopy (EGD) Hx of colonoscopy Status post total hip replacement, 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) S/P total hysterectomy and bilateral salpingo-oophorectomy S/P tonsillectomy S/P cholecystectomy S/P appendectomy Family History Father Hypertension Myocardial infarction Diabetes Coronary heart disease Sister Coronary heart disease Mother Diabetes Myocardial infarction Coronary heart disease Hypertension Denies family history of Ovarian cancer Prostate cancer Breast cancer Colorectal cancer Social History Smoking Status: Former smoker Second Hand Exposure: No; Do You Dip or Chew Tobacco: No; Hx Alcohol Use: No Hx Substance Use: No Preferred Language: Wolof Communication Ability: Effective Visual Impairment: Limited Hearing Ability: Normal Sterile Supervisor Required: No Beliefs That Will Affect Care: Pentecostalism Pentecostalism Beliefs: Jehovah witness - no blood products marital status: Current Living Situation: Spouse current occupational status: retired Feels Safe at Home: Yes Childhood Exposure to Second-Hand Smoke: No Diet: regular Diet Comment: regular caffeine: No during the past year weight has: remained stable Dental Care, Regularly: Yes Physical Activity Frequency: 1-2 Times per Week Seatbelt Use: always Sunscreen Use: Yes Assistive Devices: Cane, Stair Lift and Walker Allergies Allergies Allergy/AdvReac Type Severity Reaction Status Date / Time bee venom protein (honey bee) Allergy Severe SWELLS UP Verified 11/19/23 20:27 cefazolin Allergy Severe SHORTNESS Verified 11/19/23 20:27 OF BREATH adhesive Allergy Intermediate HIVES WITH Verified 11/19/23 20:27 TAPE azithromycin Allergy Unknown Unknown Verified 11/19/23 20:27 candesartan AdvReac Intermediate cough Verified 11/19/23 20:27 enalapril AdvReac Intermediate cough Verified 11/19/23 20:27 lisinopril AdvReac Intermediate COUGH Verified 11/19/23 20:27 morphine AdvReac Intermediate ABNORMAL Verified 11/19/23 20:27 DREAMS/PASSED OUT nitroglycerin AdvReac Intermediate GI SYMPTOMS Verified 11/19/23 20:27 Home Meds Home Medications Medication Instructions Recorded Confirmed multivitamin 1 tab PO QAM 12/17/18 11/19/23 Previous Rx's Medication Instructions Recorded lancets #50 ea 12/17/18 blood sugar diagnostic #100 ea 05/31/19 cyanocobalamin (vitamin B-12) 500 1,000 mcg (2 x 500 mcg) PO QAM #30 03/26/22 mcg tablet tabs atorvastatin 10 mg tablet 10 mg PO DAILY #100 tabs 08/17/22 donepezil 5 mg tablet 5 mg PO DAILY #90 tabs 09/22/22 lancets 33 gauge (OneTouch Delica #100 ea 09/28/22 Lancets) sodium chloride, sodium See Rx Instructions .Route 11/18/22 bicarb-nasal rinse squeeze bottle .COMPLEX #50 ea with packet (Neilmed Sinus Rinse Complete with packet) magnesium oxide 400 mg (241.3 mg 400 mg PO TID #90 tabs 12/30/22 magnesium) tablet blood sugar diagnostic (OneTouch #50 ea 01/17/23 Verio test strips) escitalopram oxalate 20 mg tablet 20 mg PO QAM #90 tabs 05/24/23 amlodipine 5 mg tablet 5 mg PO DAILY #30 tabs 06/01/23 furosemide 20 mg tablet (Lasix) 20 mg PO DAILY #30 tabs 06/01/23 docusate sodium 100 mg capsule 100 mg PO BID #20 caps 06/18/23 cetirizine 10 mg tablet (Zyrtec) 10 mg PO DAILY allergy symptoms 07/24/23 #90 tabs ipratropium bromide 21 mcg (0.03 2 spray intranasal BID PRN chronic 07/24/23 %) nasal spray cough #30 mL potassium chloride 10 mEq 10 meq PO DAILY #30 tabs 07/27/23 tablet,extended release Synthroid 75 mcg tablet 75 mcg PO DAILY #30 tabs 08/11/23 (levothyroxine) albuterol sulfate 90 mcg/actuation 2 inh inhalation Q6H cough #1 ea 09/12/23 breath activated powder inhaler,sensor (Proair Digihaler) montelukast 10 mg tablet 10 mg PO DAILY #30 tabs 11/02/23 pantoprazole 40 mg tablet,delayed 40 mg PO BID #60 tabs 11/03/23 release (Protonix) Results & Data (ED) Vital Signs Vital Signs - 24 hr 11/19/23 18:56 11/19/23 19:10 11/19/23 20:28 Temperature 36.8 C Temperature Source Oral Pulse Rate 70 84 Pulse Rate [Apical] Pulse Rhythm Regular Pulse Rhythm [Apical] Pulse Strength Normal Pulse Strength [Apical] Respiratory Rate 20 Respiratory Effort / Characteristics Non-Labored Respiratory Depth Normal Respiratory Pattern Regular Blood Pressure 169/74 H Blood Pressure [Left Arm] Blood Pressure Mean 105 Blood Pressure Mean [Left Arm] Blood Pressure Position Sitting Pulse Oximetry 97 96 Oxygen Delivery Method Room Air Room Air Sepsis Recent Fever Within 48 Hours No Sepsis New/Unexplained Change in Mental Status N/A Sepsis Action Taken by Nursing No Action Required 11/19/23 20:28 11/19/23 21:03 11/19/23 22:59 Temperature Temperature Source Pulse Rate 71 67 Pulse Rate [Apical] 72 Pulse Rhythm Regular Pulse Rhythm [Apical] Regular Pulse Strength Pulse Strength [Apical] Normal Respiratory Rate 22 21 Respiratory Effort / Characteristics Non-Labored Respiratory Depth Normal Respiratory Pattern Regular Blood Pressure Blood Pressure [Left Arm] 142/77 H Blood Pressure Mean Blood Pressure Mean [Left Arm] 98 Blood Pressure Position Pulse Oximetry 96 95 Oxygen Delivery Method Room Air Room Air Sepsis Recent Fever Within 48 Hours Sepsis New/Unexplained Change in Mental Status Sepsis Action Taken by [facility] Medications Current Medication List: was personally reviewed by me Laboratory Data Attestation: I reviewed the patient's lab results. 11/19/23 19:05 11/19/23 19:05 Lab Results 11/19/23 11/19/23 11/19/23 Range/Units 19:05 20:42 20:43 WBC 6.46 (4.8-10.8) K/ul RBC 3.75 L (4.20-5.40) M/uL Hgb 9.0 L (12.0-16.0) g/dl Hct 29.7 L (37.0-47.0) % MCV 79.2 L (80.0-100.0) fL MCH 24.0 L (25.0-34.0) pg MCHC 30.3 L (32.0-36.0) g/dL RDW Std Deviation 45.1 (36.4-46.3) fL RDW Coeff of [place] 15.8 H (11.5-14.5) % Plt Count 186 (130-400) K/uL MPV 11.5 (9.4-12.4) fL Immature Gran % (Auto) 0.3 % Neut % (Auto) 61.7 % Lymph % (Auto) 26.3 % [place] % (Auto) 7.9 % Eos % (Auto) 3.3 % Baso % (Auto) 0.5 % Neut # (Auto) 3.99 (1.40-6.50) K/uL Lymph # (Auto) 1.70 (1.20-3.40) K/uL [place] # (Auto) 0.51 (0.11-0.59) K/uL Eos # (Auto) 0.21 (0.00-0.50) K/uL Baso # (Auto) 0.03 (0.00-0.20) K/uL Immature Gran # (Auto) 0.02 (0.01-0.20) K/uL PT 11.4 (9.0-12.0) Seconds INR 1.1 (0.9-1.1) APTT 23 (21-31) Seconds PTT Ratio 0.9 Sodium 131 L (136-145) mmol/L Potassium 4.6 (3.5-5.1) mmol/L Chloride 98 (98-107) mmol/L Carbon Dioxide 23 (21-32) mmol/L Anion Gap 10 (3-11) BUN 31 H (6-23) mg/dl Creatinine 1.24 H (0.6-1.2) mg/dl Est Cr Clr Drug Dosing 34.5 ml/min Est GFR ( Amer) 47.5 ml/min Est GFR (Non-Af Amer) 41.0 ml/min BUN/Creatinine Ratio 25.0 H (10-20) Glucose 409 H* (70-99(Fasting)) mg/dl POC Glucose (70-99) mg/dl Calcium 9.3 (8.6-10.3) mg/dl Total Bilirubin 0.6 (0.2-1.0) mg/dl AST 23 (13-39) U/L ALT 12 (7-52) U/L Alkaline Phosphatase 76 (34-104) U/L Ammonia (18-72) umol/L Troponin I High Sens 8.1 (0-14) pg/ml Total Protein 7.2 (6.0-8.3) gm/dl Albumin 3.9 (3.4-5.0) gm/dl Globulin 3.3 (2.5-4.0) gm/dl Albumin/Globulin Ratio 1.2 (0.9-2) Urine Color Yellow Urine Appearance Clear (Clear) Urine pH 6.5 (4.5-7.5) Ur Specific [place] 1.010 (1.000-1.030) Urine Protein Negative (Negative) Urine Glucose (UA) 2+ H (Negative) Urine Ketones Negative (Negative) Urine Blood Negative (Negative) Urine Nitrite Negative (Negative) Urine Bilirubin Negative (Negative) Urine Urobilinogen Negative (Negative) Ur Leukocyte Esterase Negative (Negative) Adenovirus (PCR) Not Detected (NotDetected) B. pertussis DNA (PCR) Not Detected (NotDetected) B.parapertussis DNA PCR Not Detected (NotDetected) C. pneumoniae DNA (PCR) Not Detected (NotDetected) Coronavirus OC43 (PCR) Not Detected (NotDetected) Coronavirus HKU1 (PCR) Not Detected (NotDetected) Coronavirus 229E (PCR) Not Detected (NotDetected) SARS-CoV-2 (PCR) Not Detected (NotDetected) Coronavirus NL63 (PCR) Not Detected (NotDetected) Human Metapneumovir PCR Not Detected (NotDetected) Influenza Type A (PCR) Not Detected (NotDetected) Influenza Type B (PCR) Not Detected (NotDetected) M. pneumoniae (PCR) Not Detected (NotDetected) Parainfluenza 1 (PCR) Not Detected (NotDetected) Parainfluenza 2 (PCR) Not Detected (NotDetected) Parainfluenza 3 (PCR) Not Detected (NotDetected) Parainfluenza 4 (PCR) Not Detected (NotDetected) RSV (PCR) Not Detected (NotDetected) Entero/Rhino (PCR) Not Detected (NotDetected) 11/19/23 11/20/23 Range/Units 21:07 00:10 WBC (4.8-10.8) K/ul RBC (4.20-5.40) M/uL Hgb (12.0-16.0) g/dl Hct (37.0-47.0) % MCV (80.0-100.0) fL MCH (25.0-34.0) pg MCHC (32.0-36.0) g/dL RDW Std Deviation (36.4-46.3) fL RDW Coeff of [place] (11.5-14.5) % Plt Count (130-400) K/uL MPV (9.4-12.4) fL Immature Gran % (Auto) % Neut % (Auto) % Lymph % (Auto) % [place] % (Auto) % Eos % (Auto) % Baso % (Auto) % Neut # (Auto) (1.40-6.50) K/uL Lymph # (Auto) (1.20-3.40) K/uL [place] # (Auto) (0.11-0.59) K/uL Eos # (Auto) (0.00-0.50) K/uL Baso # (Auto) (0.00-0.20) K/uL Immature Gran # (Auto) (0.01-0.20) K/uL PT (9.0-12.0) Seconds INR (0.9-1.1) APTT (21-31) Seconds PTT Ratio Sodium (136-145) mmol/L Potassium (3.5-5.1) mmol/L Chloride (98-107) mmol/L Carbon Dioxide (21-32) mmol/L Anion Gap (3-11) BUN (6-23) mg/dl Creatinine (0.6-1.2) mg/dl Est Cr Clr Drug Dosing ml/min Est GFR ( Amer) ml/min Est GFR (Non-Af Amer) ml/min BUN/Creatinine Ratio (10-20) Glucose (70-99(Fasting)) mg/dl POC Glucose 292 H (70-99) mg/dl Calcium (8.6-10.3) mg/dl Total Bilirubin (0.2-1.0) mg/dl AST (13-39) U/L ALT (7-52) U/L Alkaline Phosphatase (34-104) U/L Ammonia 23.0 (18-72) umol/L Troponin I High Sens (0-14) pg/ml Total Protein (6.0-8.3) gm/dl Albumin (3.4-5.0) gm/dl Globulin (2.5-4.0) gm/dl Albumin/Globulin Ratio (0.9-2) Urine Color Urine Appearance (Clear) Urine pH (4.5-7.5) Ur Specific [place] (1.000-1.030) Urine Protein (Negative) Urine Glucose (UA) (Negative) Urine Ketones (Negative) Urine Blood (Negative) Urine Nitrite (Negative) Urine Bilirubin (Negative) Urine Urobilinogen (Negative) Ur Leukocyte Esterase (Negative) Adenovirus (PCR) (NotDetected) B. pertussis DNA (PCR) (NotDetected) B.parapertussis DNA PCR (NotDetected) C. pneumoniae DNA (PCR) (NotDetected) Coronavirus OC43 (PCR) (NotDetected) Coronavirus HKU1 (PCR) (NotDetected) Coronavirus 229E (PCR) (NotDetected) SARS-CoV-2 (PCR) (NotDetected) Coronavirus NL63 (PCR) (NotDetected) Human Metapneumovir PCR (NotDetected) Influenza Type A (PCR) (NotDetected) Influenza Type B (PCR) (NotDetected) M. pneumoniae (PCR) (NotDetected) Parainfluenza 1 (PCR) (NotDetected) Parainfluenza 2 (PCR) (NotDetected) Parainfluenza 3 (PCR) (NotDetected) Parainfluenza 4 (PCR) (NotDetected) RSV (PCR) (NotDetected) Entero/Rhino (PCR) (NotDetected) Administered Medications Insulin Aspart (Insulin Aspart Per Unit Charge) 0 units SC ACHS CHICO Stop: 12/20/23 00:29 Last Admin: 11/20/23 00:29 Dose: 5 units Documented By: ILA Co-signed By: ERM Discontinued Medications Sodium Chloride (Nss) 500 mls @ 999 mls/hr IV .Q31M CHICO Stop: 11/19/23 21:00 Last Infusion: 11/19/23 21:13 Dose: Infused Documented By: Admin: 11/19/23 20:43 Dose: 999 mls/hr Documented By: JOSELUIS Imaging Data Radiologist's Impression: Cervical Spine CT 11/19/23 20:17 CT cervical spine wo con CLINICAL HISTORY: pain midline, fall TECHNIQUE: Multidetector row helical CT of the cervical spine was performed without administration of intravenous contrast. Coronal and sagittal reformations were obtained. Automated dose lowering techniques and/or adjustment according to patient size were utilized for this exam. Comparison: Comparison is made to CT cervical spine 06/12/1935 FINDINGS: No acute fractures or subluxations are identified. Degenerative changes are seen in the visualized spine. The alignment is normal. Soft tissues are unremarkable. IMPRESSION: Degenerative changes without evidence of acute bony injury. ACT 112: Negative or not required by law. Electronically signed by: Shelton Goins M.D. 11/19/2023 9:[address] 11/19/23 20:17 CT head/brain wo con CLINICAL HISTORY: falls Technique: Contiguous axial CT images of the head were acquired from the base of the skull to the vertex without intravenous contrast administration. Images were viewed in brain, subdural and bone windows. Automated dose lowering techniques and/or adjustment according to patient size were utilized for this exam. Comparison: Comparison is made to head CT 06/12/2023 Findings: Areas of decreased attenuation are present in the periventricular and subcortical white matter bilaterally consistent with small vessel ischemic disease. Generalized cerebral atrophy with commensurate enlargement of the ventricles, sulci, and cisterns is also present. There is no acute intracranial hemorrhage or evidence of acute territorial infarction. No shift of the midline structures, mass effect, or extra-axial abnormalities are shown. Atherosclerotic calcifications are present in the intracranial segments of the internal carotid arteries. Imaged portions of the paranasal sinuses and mastoid air cells are clear. The orbits appear normal. There are no acute fractures of the calvaria or scalp swelling. Impression: No acute intracranial hemorrhage, skull fractures, or scalp swelling. ACT 112: Negative or not required by law. Electronically signed by: Shelton Goins M.D. 11/19/2023 9:29 PM Discharge Plan Visit Data Chief Complaint: Dizziness ED Provider: Benson Barbosa Discharge Problem: Weakness, Anemia, Recurrent falls, Acute dehydration, Acute hyperglycemia Forms Stand Alone Forms: [facility] [place] Prescriptions Prescriptions: No Action multivitamin tablet 1 tab PO QAM (DME) lancets misc See Dose Instructions .ROUTE .MEDSUPPLY Qty: 50 0RF Dose Instruction: As directed Rx Instructions: As directed 33G (DME) blood sugar diagnostic Strip See Dose Instructions .ROUTE .MEDSUPPLY Qty: 100 1RF Dose Instruction: As directed Rx Instructions: Testing 2 times daily atorvastatin 10 mg tablet 10 mg PO DAILY Qty: 100 3RF donepezil 5 mg tablet 5 mg PO DAILY Qty: 90 2RF (DME) lancets [OneTouch Delica Lancets] 33 gauge misc See Rx Instructions .ROUTE .MEDSUPPLY Qty: 100 3RF Rx Instructions: Testing blood sugar twice daily magnesium oxide 400 mg (241.3 mg magnesium) tablet 400 mg PO TID Qty: 90 3RF (DME) OneTouch Verio test strips Strip See Rx Instructions .ROUTE .MEDSUPPLY Qty: 50 11RF Rx Instructions: Testing blood sugar twice daily escitalopram oxalate 20 mg tablet 20 mg PO QAM Qty: 90 3RF furosemide [Lasix] 20 mg tablet 20 mg PO DAILY Qty: 30 5RF cetirizine [Zyrtec] 10 mg tablet 10 mg PO DAILY Qty: 90 1RF ipratropium bromide 21 mcg (0.03 %) spray,non-aerosol 2 spray intranasal BID PRN (Reason: chronic cough) Qty: 30 5RF Rx Instructions: administer into each nostril potassium chloride 10 mEq tablet extended release 10 meq PO DAILY Qty: 30 5RF levothyroxine [Synthroid] 75 mcg tablet 75 mcg PO DAILY Qty: 30 2RF pantoprazole [Protonix] 40 mg tablet,delayed release (DR/EC) 40 mg PO BID Qty: 60 5RF montelukast 10 mg tablet 10 mg PO DAILY Qty: 30 5RF Rx Instructions: PER PT'S "STOPPED GIVING IT TO HER, SEEMED TO MAKE HER MEMORY WORSE, AND COUGH GOT WORSE". Proair Digihaler 90 mcg/actuation aero powdr breath act w/sensor 2 inh inhalation Q6H Qty: 1 3RF Neilmed Sinus Rinse Complete Packet With Rinse Device See Rx Instructions .Route .COMPLEX Qty: 50 3RF Rx Instructions: use daily; amlodipine 5 mg tablet 5 mg PO DAILY Qty: 30 11RF cyanocobalamin (vitamin B-12) 500 mcg Tablet 1,000 mcg PO QAM Qty: 30 0RF docusate sodium 100 mg Capsule 100 mg PO BID Qty: 20 0RF Referrals Referrals: Candis Lee DO [Primary Care Provider] - Discharge Problem: Anemia Qualifiers: Anemia type: unspecified type Qualified Code(s): D64.9 - Anemia, unspecified
[2023-11-19 20:42] LABS: Albumin Globulin Ratio 1.2 (0.9-2); Albumin Level 3.9 gm/dl (3.4-5.0); Bilirubin,Total 0.6 mg/dl (0.2-1.0); Calcium 9.3 mg/dl (8.6-10.3); Creatinine Clr Calc Pharmacy 34.5 ml/min; Est GFR (African American) 47.5 ml/min; Globulin 3.3 gm/dl (2.5-4.0); Potassium 4.6 mmol/L (3.5-5.1); Total Protein 7.2 gm/dl (6.0-8.3)
[2023-11-19] MEDS: SODIUM CHLORIDE 0.9% 500 ML IV SCH (20:43)
[2023-11-19 20:44] LABS: Basophils # (auto) 0.03 K/uL (0.00-0.20); Basophils % (auto) 0.5 %; Eosinophils # (auto) 0.21 K/uL (0.00-0.50); Eosinophils % (auto) 3.3 %; Hematocrit (blood only) 29.7 % (37.0-47.0); Immature Granulocytes # (auto) 0.02 K/uL (0.01-0.20); Immature Granulocytes % (auto) 0.3 %; Lymphocytes % (auto) 26.3 %; Mean Corpuscular Hgb Conc 30.3 g/dL (32.0-36.0); Mean Corpuscular Volume 79.2 fL (80.0-100.0); Mean Platelet Volume 11.5 fL (9.4-12.4); Monocytes # (auto) 0.51 K/uL (0.11-0.59); Monocytes % (auto) 7.9 %; Neutrophils # (auto) 3.99 K/uL (1.40-6.50); Neutrophils % (auto) 61.7 %; Platelet Count 186 K/uL (130-400); RDW Coefficient of Variation 15.8 % (11.5-14.5); RDW Standard Deviation 45.1 fL (36.4-46.3); Red Blood Count 3.75 M/uL (4.20-5.40); White Blood Count 6.46 K/ul (4.8-10.8)
[2023-11-19 20:51] LABS: Troponin I High Sensitivity 8.1 pg/ml (0-14)
[2023-11-19 21:03] LABS: Appearance Urine Clear (Clear); Bilirubin Urine Negative (Negative); Blood Urine Negative (Negative); Color Urine Yellow; Glucose Urine UA 2+ (Negative); Ketones Urine Negative (Negative); Leukocyte Esterase Urine Negative (Negative); Nitrite Urine Negative (Negative); Protein Urine Negative (Negative); Urobilinogen Urine Negative (Negative); pH Urine 6.5 (4.5-7.5)
[2023-11-19 21:05] LABS: INR 1.1 (0.9-1.1); Partial Thromboplastin Ratio 0.9; Partial Thromboplastin Time 23 Seconds (21-31); Prothrombin Time 11.4 Seconds (9.0-12.0)
--- NOTE | 2023-11-19 21:30 | CT Scan Report ---
CT head/brain wo con CLINICAL HISTORY: falls Technique: Contiguous axial CT images of the head were acquired from the base of the skull to the jermaine cooper without intravenous contrast administration. Images were [facility] brain[facility] Automated dose lowering techniques and/or adjustment according to patient size were utilized for this exam. Comparison: Comparison is made to head CT 06/12/2023 Findings: Areas of decreased attenuation are present in the periventricular and subcortical white matter bilate rally consistent with small vessel ischemic disease. Generalized cerebral atrophy with commensurate e nlargement of the ventricles, sulci, and cisterns is also present. There is no acute intracranial hem orrhage or evidence of acute territorial infarction. No shift of the midline structures, mass effect, or extra-axial abnormalities are shown. Atherosclerotic calcifications are present in the intracran ial segments of the internal carotid arteries. Imaged portions of the paranasal sinuses and mastoid air cells are clear. The orbits appear normal. There are no acute fractures of the calvaria or scalp swelling. Impression: No acute intracranial hemorrhage, skull fractures, or scalp swelling. ACT 112: Negative or not required by law. Electronically signed by: Shelton Goins M.D. 11/19/2023 9:29 PM
--- NOTE | 2023-11-19 21:33 | CT Scan Report ---
CT cervical spine wo con CLINICAL HISTORY: pain midline, fall TECHNIQUE: Multidetector row helical CT of the cervical spine was performed without administration of intravenous contrast. Coronal and sagittal reformations were obtained. Automated dose lowering techn iques and/or adjustment according to patient size were utilized for this exam. Comparison: Comparison is made to CT cervical spine 06/12/1935 FINDINGS: No acute fractures or subluxations are identified. Degenerative changes are seen in the visualized sp ine. The alignment is normal. Soft tissues are unremarkable. IMPRESSION: Degenerative changes without evidence of acute bony injury. ACT 112: Negative or not required by law. Electronically signed by: Shelton Goins M.D. 11/19/2023 9:31 PM
[2023-11-19 22:36] LABS: Adenovirus PCR Not Detected (NotDetected); Bordetella parapertussis PCR Not Detected (NotDetected); Bordetella pertussis PCR Not Detected (NotDetected); Chlamydia pneumoniae PCR Not Detected (NotDetected); Coronavirus 229E PCR Not Detected (NotDetected); Coronavirus CoV-2 (COVID19)PCR Not Detected (NotDetected); Coronavirus HKU1 PCR Not Detected (NotDetected); Coronavirus NL63 PCR Not Detected (NotDetected); Coronavirus OC43PCR Not Detected (NotDetected); Human Metapneumovirus PCR Not Detected (NotDetected); Influenza A PCR Not Detected (NotDetected); Influenza B PCR Not Detected (NotDetected); Mycoplasma pneumoniae PCR Not Detected (NotDetected); Parainfluenza Virus 1 PCR Not Detected (NotDetected); Parainfluenza Virus 2 PCR Not Detected (NotDetected); Parainfluenza Virus 3 PCR Not Detected (NotDetected); Parainfluenza Virus 4 PCR Not Detected (NotDetected); Respiratory Syncytial VirusPCR Not Detected (NotDetected); Rhinovirus/Enterovirus PCR Not Detected (NotDetected)
--- NOTE | 2023-11-19 22:55 | History & Physical Report ---
Date of Service November 19, 2023 Assessment & Plan (1) Anemia: Plan: Pt is a 78 yo female with PMH of dementia, GI bleed, HTN, HLD, recurrent syncope, cirrhosis, and DM presenting due to 2 falls within the last 24hrs. Frequent falls - lab work significant for no leukocytosis, Hgb 9.0 (last in May 2023 12.5), plt 186, PT/INR WNL, Na 131, Cr 1.24, ALT/AST WNL - CT head neg for acute pathology; cervical CT neg - EKG showing sinus rhythm w/ PACs - RVP neg - suspect pt's symptoms are multifactorial in origin including dehydration, deconditioning, and anemia; plans detailed for each problem below - PT/OT consulted; Pt had been engaging in PT as outpatient; pt may benefit from rehab prior to return home Anemia - Hgb 9.0 upon admission (last May 2023 12.5) - pt with hx of GI bleeding; has been supplementing with B12 at home - last colonoscopy 05/2022 where a 3mm tubular adenoma removed from sigmoid colon - per , no BRBPR or dark stools (but he also does not monitor all of her BMs) - hemoccult all stools; B12, folate, and iron panel ordered for AM - continue pantoprazole BID - of note, if Hgb continues to drop, pt does NOT consent for blood transfusions (as she is Sabianist); if Hgb below 7, would consider scope intervention if actively bleeding, IV iron, or procrit Chronic cough - pt has had extensive work up including CXR, CT chest, sinus CT, pulm consult, trial of inhalers, video swallow, and trial of gabapentin, etc - CT chest 09/2022 showed multiple nodules <4mm; ordered another CT chest d/t ongoing symptoms and to ensure no progression of nodules - suspicion remains for aspiration; consult speech therapy Hyponatremia - Na 131 upon admission- corrected for glucose= 136; last in May 2023 138 - monitor for resolution once glucose WNL DAYANA - baseline Cr 0.8-1.0; Cr upon admission 1.24 - suspect pre-renal secondary to poor PO intake - s/p 1L NS in ER; will continue with LR at 80 mL/hr x2 Hypothyroidism - last TSH 0.515 07/2023 - will recheck in the setting of recent increased confusion - continue levothyroxine 75mcg daily Dementia - pt unreliable historian - continue home donepezil 5 mg daily DM - pt unable to check her BS over the past few weeks as she has had increasing confusion; pt's unsure how to check her BS - glucose 409 upon admission, 2+ glucose in urine; last A1c May 2023 6.6% - recheck A1c in AM - will start insulin glargine 10u BID; SSI- adjust PRN Cirrhosis - PT/INR, ALT, AST WNL; ammonia normal - do not suspect acute decompensation at this time Diet: carb consistent, aspiration precautions, LR at 80 mL/hr DVT ppx: will hold in the setting of possible bleed; encourage ambulation as able- if hospitalization prolonged, consider addition of DVT ppx Code: DNR/DNI per discussion with pt's (POA) Dispo: admit to med/tele (2) Hyperlipidemia: (3) Type 2 diabetes mellitus: (4) Hypertension: (5) Refusal of blood transfusions as patient is Restoration: (6) Acute kidney injury: (7) Hyponatremia: (8) Frequent falls: (9) Chronic cough: History of Present Illness Chief Complaint: weakness, falls Primary Care Provider: Candis Lee DO Pt is a 78 yo female with PMH of dementia, GI bleed, HTN, HLD, recurrent syncope, cirrhosis, and DM presenting due to 2 falls within the last 24hrs. Pt seen at bedside with her providing the history. Pt's reports that she fell last night around 11:30PM. He helped her up- she did not want to go to the hospital at that time. They awoke Monday morning to get ready for their holiness service. Her was downstairs waiting for her but she did not come down for awhile so he went to check on her. She was lying on the bed with only her bra and underwear on; he helped her get dressed and downstairs for their holiness service. The rest of the day was uneventful until the pt had another episode of severe weakness and a fall. Her was able to catch her mostly but she still ended up on the floor as the pt was completely unable to bear any of her weight d/t what the noted as extremely weak legs. This prompted him to bring her to the ER tonight. He also notes that she has had a cough now for almost a year and half. Her PCP and field supervisor seed production have been trying to find the source. She also saw a wrapper rewinder for this as well with no clear cause. This is of major concern for the pt's because he believes it is contributing to her weakness and she also urinates every time she coughs. She was recently trialed on singulair to help the cough but this seemed to make her confusion worse so her stopped giving this medication. In the ER, pt was given 1L NS. Allergies Allergy/AdvReac Type Severity Reaction Status Date / Time bee venom protein (honey bee) Allergy Severe SWELLS UP Verified 11/19/23 20:27 cefazolin Allergy Severe SHORTNESS Verified 11/19/23 20:27 OF BREATH adhesive Allergy Intermediate HIVES WITH Verified 11/19/23 20:27 TAPE azithromycin Allergy Unknown Unknown Verified 11/19/23 20:27 candesartan AdvReac Intermediate cough Verified 11/19/23 20:27 enalapril AdvReac Intermediate cough Verified 11/19/23 20:27 lisinopril AdvReac Intermediate COUGH Verified 11/19/23 20:27 morphine AdvReac Intermediate ABNORMAL Verified 11/19/23 20:27 DREAMS/PASSED OUT nitroglycerin AdvReac Intermediate GI SYMPTOMS Verified 11/19/23 20:27 Home Medications Medication Instructions Recorded Confirmed Type lancets #50 ea 12/17/18 11/02/23 Rx multivitamin 1 tab PO QAM 12/17/18 11/19/23 History blood sugar diagnostic #100 ea 05/31/19 11/02/23 Rx cyanocobalamin (vitamin B-12) 500 1,000 mcg (2 x 500 mcg) PO QAM #30 03/26/22 11/19/23 Rx mcg tablet tabs atorvastatin 10 mg tablet 10 mg PO DAILY #100 tabs 08/17/22 11/19/23 Rx donepezil 5 mg tablet 5 mg PO DAILY #90 tabs 09/22/22 11/19/23 Rx lancets 33 gauge (OneTouch Delica #100 ea 09/28/22 11/02/23 Rx Lancets) sodium chloride, sodium See Rx Instructions .Route 11/18/22 11/19/23 Rx bicarb-nasal rinse squeeze bottle .COMPLEX #50 ea with packet (Neilmed Sinus Rinse Complete with packet) magnesium oxide 400 mg (241.3 mg 400 mg PO TID #90 tabs 12/30/22 11/19/23 Rx magnesium) tablet blood sugar diagnostic (OneTouch #50 ea 01/17/23 11/02/23 Rx Verio test strips) escitalopram oxalate 20 mg tablet 20 mg PO QAM #90 tabs 05/24/23 11/19/23 Rx amlodipine 5 mg tablet 5 mg PO DAILY #30 tabs 06/01/23 11/19/23 Rx furosemide 20 mg tablet (Lasix) 20 mg PO DAILY #30 tabs 06/01/23 11/19/23 Rx docusate sodium 100 mg capsule 100 mg PO BID #20 caps 06/18/23 11/19/23 Rx cetirizine 10 mg tablet (Zyrtec) 10 mg PO DAILY allergy symptoms 07/24/23 11/19/23 Rx #90 tabs ipratropium bromide 21 mcg (0.03 2 spray intranasal BID PRN chronic 07/24/23 11/19/23 Rx %) nasal spray cough #30 mL potassium chloride 10 mEq 10 meq PO DAILY #30 tabs 07/27/23 11/19/23 Rx tablet,extended release Synthroid 75 mcg tablet 75 mcg PO DAILY #30 tabs 08/11/23 11/19/23 Rx (levothyroxine) albuterol sulfate 90 mcg/actuation 2 inh inhalation Q6H cough #1 ea 09/12/23 11/19/23 Rx breath activated powder inhaler,sensor (Proair Digihaler) montelukast 10 mg tablet 10 mg PO DAILY #30 tabs 11/02/23 11/19/23 Rx pantoprazole 40 mg tablet,delayed 40 mg PO BID #60 tabs 11/03/23 11/19/23 Rx release (Protonix) Past Med/Surg History Problem List (Updated 11/20/23 @ 00:51 by Benson Barbosa MD) Acute hyperglycemia (Acute) Acute dehydration (Acute) Recurrent falls (Acute) Anemia (Acute) Weakness (Acute) Frequent falls Hyponatremia Acute kidney injury Constipation Refusal of blood transfusions as patient is Restoration Encounter for interrogation of cardiac recorder Cough Chronic cough Allergic rhinitis Recurrent syncope Status post placement of implantable loop recorder Hypomagnesemia History of syncope hx- no issues in years ADMITTED [facility] 12/31/18-EKG/ECHO /HOLTER MONITOR-NO DIAGNOSIS PER PT- Cirrhosis LGI bleed 03/2022 admitted al Dementia Asthma mild, ted uses inhaler Anemia (Acute) GERD (gastroesophageal reflux disease) Anxiety and depression Hyperlipidemia Lumbar spinal stenosis TMJ syndrome Type 2 diabetes mellitus Hypertension Hypothyroidism Medical History Vitamin D deficiency Falls frequently Syncope, vasovagal Seasonal allergies mild Implantable loop recorder present follows w/ Dr Milian last visit 02/2022 Acute upper GI bleed Nausea and vomiting after administration of anesthetic agent Surgical History History of esophagogastroduodenoscopy (EGD) Hx of colonoscopy Status post total hip replacement, 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) S/P total hysterectomy and bilateral salpingo-oophorectomy S/P tonsillectomy S/P cholecystectomy S/P appendectomy Family History Father Hypertension Myocardial infarction Diabetes Coronary heart disease Sister Coronary heart disease Mother Diabetes Myocardial infarction Coronary heart disease Hypertension Denies family history of Ovarian cancer Prostate cancer Breast cancer Colorectal cancer Social History Smoking Status: Never smoker Second Hand Exposure: No; Do You Dip or Chew Tobacco: No; Hx Alcohol Use: No Hx Substance Use: No Preferred Language: Macanese Communication Ability: Effective Visual Impairment: Limited Hearing Ability: Normal Operations Representative Required: No Beliefs That Will Affect Care: Jainism Jainism Beliefs: Jehovah witness- no blood products marital status: Current Living Situation: Spouse current occupational status: retired Feels Safe at Home: Yes Childhood Exposure to Second-Hand Smoke: No Diet: regular Diet Comment: regular caffeine: No during the past year weight has: remained stable Dental Care, Regularly: Yes Physical Activity Frequency: 1-2 Times per Week Seatbelt Use: always Sunscreen Use: Yes Assistive Devices: Walker Review of Systems Review of Systems: As per HPI Physical Exam Constitutional: NAD, vitals WNL. Eyes: Conjunctivae normal. Respiratory: CTA bilaterally. Non labored breathing. No rhonchi, wheezing, or crackles. Cardiovascular: RRR. No murmurs noted. No calf edema. Nonpitting edema of bilateral lateral malleoli noted. Gastrointestinal (Abdomen): Nontender, +BS. No masses noted. Skin: Scabs noted on inside of bilateral thighs Neurologic: Sensation grossly intact. No FND appreciated. Psychiatric: Speech of normal pace and content although tangental at times. Mood and affect congruent. Results & Data Results & Data Vital Signs (Past 12 Hours) Vital Signs Temp Pulse Pulse Resp BP BP Pulse Ox 11/19/23 21:03 72 21 142/77 H 95 11/19/23 20:28 71 22 96 11/19/23 20:28 96 11/19/23 19:10 36.8 C 84 20 169/74 H 97 11/19/23 18:56 70 O2 Del Method 11/19/23 21:03 Room Air 11/19/23 20:28 Room Air 11/19/23 20:28 Room Air 11/19/23 19:10 Room Air 11/19/23 18:56 Supervising Physician Co-Signing Physician Notes Attending addendum: I have physically seen this patient, have supervised the medical residents activities, and agree with the H&P unless as otherwise noted. Assessment and Plan: Frequent falls- Multifactorial including but not limited to low hemoglobin, with anemia 9.0, hyperglycemia with glucose of 409, and progressive debilitation Anemia- Hemoglobin 9.0 by admission Patient has history of GI bleeding She is a Restoration, and refuses blood transfusions if needed Hemoccult stools Ordered B12, folate and iron studies as noted Pantoprazole 40 mg p.o. twice daily Hyperglycemia in diabetes mellitus type 2- Dietary indiscretions as noted by , who likes sweets, and has been giving them to his as well Glucose did improve to 292 after 500 cc of normal saline Will continue IV fluid rehydration Placed on NovoLog SSI Check hemoglobin A1c Recheck laboratories in a.m. Acute kidney injury Creatinine 1.24, with base 0.8-1.0 Repeat laboratories in a.m. after rehydration Resident Activity Tracking Resident Involvement: Resident Care Provided Care Provided: Adult Hospital Medicine (1) Anemia Anemia type: unspecified type Qualified Code(s): D64.9 - Anemia, unspecified (2) Hyperlipidemia Hyperlipidemia type: mixed hyperlipidemia Qualified Code(s): E78.2 - Mixed hyperlipidemia (4) Hypertension Hypertension type: primary hypertension Qualified Code(s): I10 - Essential (primary) hypertension
[2023-11-19] MEDS ORDERED: ONDANSETRON INJ 2 MG/ML 2 ML VIAL IV PRN (23:58)
[2023-11-19] MEDS ORDERED: POLYETHYLENE (MIRALAX) 17 GM PACK PO PRN (23:58)
[2023-11-20] MEDS ORDERED: GLUCAGON FOR INJ 1 MG VIAL SQ PRN (00:11)
[2023-11-20] MEDS ORDERED: GLUCOSE 40% GEL 15 GM TUBE PO PRN (00:11)
[2023-11-20] MEDS ORDERED: CARBOHYDRATES FOR HYPOGLYCEMIA PO PRN (00:11)
[2023-11-20] MEDS ORDERED: GLUCOSE 10 TAB/TUBE PO PRN (00:11)
[2023-11-20] MEDS ORDERED: DEXTROSE 50% 50 ML SYRINGE IV PRN (00:11)
[2023-11-20] MEDS: INSULIN ASPART PER UNIT CHARGE SC SCH (00:29)
--- NOTE | 2023-11-20 03:17 | Billing Data ---
Date of Service November 20, 2023 Coding Level of Care Code 73281 INT INP/OBS CARE
[2023-11-20] MEDS: LACTATED RINGER'S 1,000 ML IV SCH (03:43)
--- NOTE | 2023-11-20 04:29 | CT Scan Report ---
Exam(s): CT CHEST Without Contrast EXAM: CT Chest Without Intravenous Contrast CLINICAL HISTORY: Chronic Cough. TECHNIQUE: Axial computed tomography images of the chest without intravenous contrast. CTDI is 10.59 mGy and DLP is 336.8 mGy-cm. Automated exposure control was utilized for the study. A dose lowering technique was utilized adhering to the principles of ALARA. COMPARISON: No relevant prior studies available. FINDINGS: Lungs: Unremarkable. No mass. No consolidation. Pleural space: Unremarkable. No pneumothorax. No significant effusion. Heart: Unremarkable. No cardiomegaly. No significant pericardial effusion. No significant coronary artery calcifications. Bones/joints: There are degenerative changes of the spine. No acute fracture. No dislocation. Soft tissues: Unremarkable. Vasculature: Mild atherosclerosis. No thoracic aortic aneurysm. Lymph nodes: Unremarkable. No enlarged lymph nodes. Liver: Nodular contour of the liver is concerning for cirrhosis. IMPRESSION: 1. No acute finding. 2. Nodular contour of the liver is concerning for cirrhosis. Electronically signed by: Evette Patel MD 11/20/23 04:29 AM
--- NOTE | 2023-11-20 06:52 | XRay Report ---
XR chest 1V portable CLINICAL HISTORY: Cough. COMPARISON STUDY: Chest CT September 22, 2022. Chest radiograph June 12, 2023. FINDINGS: Lung volumes are normal. Lungs are clear. Electronic device projects over the left chest. T here is no pneumothorax or pleural effusion. Cardiac size is normal. Mediastinal contours are normal. There is no evidence for pulmonary edema. IMPRESSION: No acute cardiopulmonary findings. ACT 112: Negative or not required by law. Electronically signed by: Keith Scruggs M.D. 11/20/2023 6:51 AM
[2023-11-20 07:02] LABS: Hemoglobin 8.4 g/dl (12.0-16.0); Mean Corpuscular Hemoglobin 23.8 pg (25.0-34.0); Mean Corpuscular Volume 79.3 fL (80.0-100.0); Mean Platelet Volume 11.1 fL (9.4-12.4); Platelet Count 178 K/uL (130-400); RDW Coefficient of Variation 15.8 % (11.5-14.5); RDW Standard Deviation 45.1 fL (36.4-46.3); Red Blood Count 3.53 M/uL (4.20-5.40); White Blood Count 6.71 K/ul (4.8-10.8)
[2023-11-20 07:31] LABS: Estimated Average Glucose 243 mg/dl; Hemoglobin A1C 10.1 % (4.5-5.6)
[2023-11-20 07:53] LABS: Albumin Level 3.5 gm/dl (3.4-5.0); Bilirubin,Total 0.5 mg/dl (0.2-1.0); Calcium 8.5 mg/dl (8.6-10.3); Potassium 4.2 mmol/L (3.5-5.1)
[2023-11-20 08:00] LABS: Albumin Globulin Ratio 1.2 (0.9-2); BUN Creatinine Ratio 24.5 (10-20); Creatinine Clr Calc Pharmacy 45.5 ml/min; Est GFR (African American) 66.4 ml/min; Est GFR (Non-African American) 57.3 ml/min; Globulin 2.9 gm/dl (2.5-4.0); Total Protein 6.4 gm/dl (6.0-8.3)
[2023-11-20] MEDS ORDERED: ALBUTEROL HFA 8 GM INHALER INH PRN (08:06)
[2023-11-20] MEDS ORDERED: IPRATROPIUM BROMIDE NASAL SPRAY 0.06% 15ML NAE PRN (08:07)
[2023-11-20 08:28] LABS: Thyroid Stimulating Hormone 18.207 uIu/ml (0.300-4.500)
[2023-11-20 08:35] LABS: Folate (Folic Acid),Ser orPlas > 22.30 ng/ml (>5.38); Vitamin B12 > 1500 pg/ml (180-914)
[2023-11-20 08:36] LABS: Ferritin 11.9 ng/ml (8-388)
[2023-11-20] MEDS: CETIRIZINE HCL 10 MG TABLET PO SCH (09:15)
[2023-11-20] MEDS: LEVOTHYROXINE SODIUM 75 MCG TABLET PO SCH (09:15)
[2023-11-20] MEDS: CYANOCOBALAMIN (B-12) 500 MCG TABLET PO SCH (09:15)
[2023-11-20] MEDS: PANTOprazole 40 MG TAB PO SCH (09:15)
[2023-11-20] MEDS: ESCITALOPRAM OXALATE 20 MG TAB PO SCH (09:15)
[2023-11-20] MEDS: DONEPEZIL HCL 5 MG TAB PO SCH (09:15)
[2023-11-20] MEDS: amLODIPine BESYLATE 5 MG TAB PO SCH (09:15)
[2023-11-20] MEDS: ATORVASTATIN 10 MG TAB PO SCH (09:15)
[2023-11-20] MEDS: DOCUSATE SODIUM 100 MG CAP PO SCH (09:15)
[2023-11-20] MEDS: LANTUS PER UNIT CHARGE SQ SCH (09:21)
--- NOTE | 2023-11-20 15:48 | Hospitalist Progress Note ---
Date of Service November 20, 2023 Assessment & Plan (1) Anemia: Plan: No apparent melena or hematochezia. She is a Jainism and refuses any blood products if transfusion would be recommended. Stool Hemoccult pending. Serial labs (2) Type 2 diabetes mellitus: Plan: Sliding-scale coverage. ADA diet. She is insulin alvaro and will avoid scheduled basal insulin for now. She is also currently n.p.o. (3) Hypertension: Plan: Stable. Continue current medical management (4) Refusal of blood transfusions as patient is Jainism: Plan: Noted. Serial labs (5) Acute kidney injury: Plan: Mild. Monitor intake and output. Serial labs (6) Hyponatremia: Plan: Mild. Probably pseudohyponatremia. (7) Frequent falls: Plan: Supportive care. OT and PT assessments requested (8) Chronic cough: Plan: Probably from recurrent aspiration. Speech therapy consultation and recommendations appreciated. Video swallow tomorrowNovember 20 Plan To be determined Admission and Anticipated Discharge Date Admission Date: November 19, 2023 Subjective Alert and oriented. No distress. Speech therapy has evaluated the patient and she apparently has aspiration during attempted swallowing. She is now n.p.o. and video swallow will be obtained tomorrow, November 20. She is insulin alvaro and will avoid scheduled basal insulin dosing. Sliding scale coverage for now. She is a Jainism and refuses any blood transfusion should it become necessary. She has evidence of acute on chronic kidney disease stage III on admission. Creatinine mildly elevated at 1.2 with baseline 0.8. Sodium is mildly low at 131 but this is probably pseudohyponatremia due to hyperglycemia. OT and PT assessments requested. Review of Systems 2 Review of Systems: Constitutional-no fever or chills ENT-no blurred vision, no double vision, no epistaxis, no sore throat Respiratory-no cough, no wheezing, no shortness of breath Cardiac-no palpitations, no chest pain, no syncope GI-no nausea, vomiting, diarrhea, melena, hematochezia -no urinary retention, no urinary incontinence, no dysuria, no hematuria Musculoskeletal-no joint pain, no muscle tenderness Skin-no bruising, no rashes, no pruritus Neuro-generalized weakness. No focal deficits Psych-no depression, no anxiety Physical Exam 2 Physical Exam: General-alert and oriented x3, no fever, no chills HEENT-head atraumatic and normocephalic, pupils equal and reactive to light, extraocular muscles intact Neck-no lymphadenopathy or thyromegaly, trachea midline Chest-clear to auscultation. No rales, wheezing or rhonchi Cardiac-regular rate and rhythm, normal S1 and S2 Abdomen-normal bowel sounds, no hepatosplenomegaly Extremities-no cyanosis, clubbing, or edema Neuro-cranial nerves II through XII intact, motor and sensory function within normal limits, strength symmetrical with generalized weakness, no focal deficits Psych-normal affect, normal mood Results & Data Results & Data Vital Signs (Past 12 Hours) Vital Signs Temp Pulse Pulse Resp BP BP Pulse Ox 11/20/23 10:55 68 11/20/23 10:04 36.8 C 75 20 122/79 98 11/20/23 07:58 36.8 C 68 20 143/69 H 98 11/20/23 06:56 68 11/20/23 03:48 80 19 92 11/20/23 03:44 147/69 H O2 Del Method 11/20/23 10:55 11/20/23 10:04 Room Air 11/20/23 07:58 Room Air 11/20/23 06:56 11/20/23 03:48 Room Air 11/20/23 03:44 Laboratory Results 11/20/23 06:19 11/20/23 06:19 PG Care Time/CCT Total # of Minutes Spent Total Time Spent with Patient: Total time spent is greater than 50% in coordination of care (as documented) at patient's floor/unit and/or counseling patient: Coding Level of Care Code 60816 SUB INP/OBS CARE 3/50MIN Diagnoses Anemia D64.9 Anemia type: unspecified type Type 2 diabetes mellitus E11.9 Primary hypertension I10 Hypertension type: primary hypertension Refusal of blood transfusions as patient is Jainism Z53.1 Acute kidney injury N17.9 Hyponatremia E87.1 Frequent falls R29.6 Chronic cough R05.3 (1) Anemia Anemia type: unspecified type Qualified Code(s): D64.9 - Anemia, unspecified (3) Hypertension Hypertension type: primary hypertension Qualified Code(s): I10 - Essential (primary) hypertension
[2023-11-20] MEDS ORDERED: Nursing to Pharmacy Communication SCH (20:00)
[2023-11-21] MEDS: INSULIN ASPART PER UNIT CHARGE SC SCH ×2 (00:43→18:02)
--- NOTE | 2023-11-21 06:08 | Electrocardiogram Report ---
Test Reason : Blood Pressure : / mmHG Vent. Rate : 068 BPM Atrial Rate : 068 BPM P-R Int : 190 ms QRS Dur : 082 ms QT Int : 414 ms P-R-T Axes : 044 -15 042 degrees QTc Int : 440 ms Sinus rhythm with Premature atrial complexes Low voltage QRS Borderline ECG When compared with ECG of 12-JUN-2023 11:36, Questionable change in QRS axis Confirmed by Kael Lo ([id number]) on 11/21/2023 6:07:42 AM Referred By: REFERRED SELF Confirmed By:Kael Lo
[2023-11-21 06:51] LABS: Hematocrit (blood only) 28.5 % (37.0-47.0); Hemoglobin 8.6 g/dl (12.0-16.0); Mean Corpuscular Hemoglobin 24.2 pg (25.0-34.0); Mean Corpuscular Hgb Conc 30.2 g/dL (32.0-36.0); Mean Corpuscular Volume 80.1 fL (80.0-100.0); Mean Platelet Volume 10.2 fL (9.4-12.4); Platelet Count 157 K/uL (130-400); RDW Coefficient of Variation 15.9 % (11.5-14.5); RDW Standard Deviation 46.1 fL (36.4-46.3); Red Blood Count 3.56 M/uL (4.20-5.40); White Blood Count 5.32 K/ul (4.8-10.8)
--- NOTE | 2023-11-21 07:58 | Hospitalist Progress Note ---
Date of Service November 21, 2023 Assessment & Plan (1) Anemia: Plan: No apparent melena or hematochezia. 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 hgb has remained stable in the mid 8 gm range (2) Type 2 diabetes mellitus: Plan: A1c is 10.1->previously on metformin at last pcp visit, at that time A1c was 6.6 Sliding-scale coverage. ADA diet. She is insulin alvaro and will avoid scheduled basal insulin for now. family requests to restart metformin at discharge presented with pseudohyponatremia now corrected (3) Hypertension: Plan: Stable. Continue current medical management amlodipine and lasix (4) Acute kidney injury: Plan: resolved (5) Frequent falls: Plan: Supportive care. OT and PT assessments pt ok to return home with some extra support due to dementia (6) Chronic cough: Plan: Speech therapy consultation and recommendations appreciated. Video swallow with mild oropharyngeal dysphagia with no aspiration , suspect esophageal dysfunction. aspiration and reflux precautions will try glycopyrrolate one dose Plan home with home health if hgb remains stable Admission and Anticipated Discharge Date Admission Date: November 19, 2023 Subjective pt is feeling somewhat improved, her diabetes are in poor control since stopping metformin in May, has a cough with thick yellow mucus, this is a chronic issues, did have VFSS with mild oropharyngeal dysphagia with no aspiration , suspect esophageal dysfunction. aspiration and reflux precautions Physical Exam Physical Exam: pt with persistent coughing and clearing of throat lungs are clear abd is soft and non tender Results & Data Results & Data Vital Signs (Past 12 Hours) Vital Signs Temp Pulse Pulse Resp BP Pulse Ox O2 Del Method 11/21/23 07:34 66 11/21/23 03:23 97.7 F 70 16 106/48 L 95 Room Air 11/20/23 22:52 97.7 F 63 18 175/73 H 95 Room Air 11/20/23 22:16 72 11/20/23 21:30 Room Air PG Care Time/CCT Total # of Minutes Spent Total Time Spent with Patient: Total time spent is greater than 50% in coordination of care (as documented) at patient's floor/unit and/or counseling patient: Coding Level of Care Code 30940 SUB INP/OBS CARE 3/50MIN Diagnoses Anemia D64.9 Anemia type: unspecified type Type 2 diabetes mellitus E11.9 Primary hypertension I10 Hypertension type: primary hypertension Acute kidney injury N17.9 Frequent falls R29.6 Chronic cough R05.3 (1) Anemia Anemia type: unspecified type Qualified Code(s): D64.9 - Anemia, unspecified (3) Hypertension Hypertension type: primary hypertension Qualified Code(s): I10 - Essential (primary) hypertension
--- NOTE | 2023-11-21 12:05 | Fluoroscopy Report ---
FL video swallow CLINICAL HISTORY: assess for aspiration TECHNIQUE: Video fluoroscopy of the pharyngeal region was performed as barium mixtures of varying con sistencies were administered to the patient by the speech pathologist. A formal esophagram was not pe rformed. Comparison: Comparison is made to CT cervical spine 11/19/2023 FINDINGS: Total fluoroscopy time: 1.46 minutes. Radiation dose: 7.61 mGy. The patient swallowed the different barium consistencies without difficulty. There was no laryngeal v estibular penetration or lenny tracheal aspiration. Esophageal retention. IMPRESSION: No evidence of aspiration. Esophageal retention is incidentally seen. Please see the speech pathology report for further details. ACT 112: Negative or not required by law. Electronically signed by: Shelton Goins M.D. 11/21/2023 12:04 PM
[2023-11-21] MEDS ORDERED: Nursing to Pharmacy Communication SCH (16:30)
[2023-11-21] MEDS: GLYCOPYRROLATE 1 MG TAB PO ONE (18:19)
[2023-11-21] MEDS: MELATONIN 3 MG TAB PO PRN (23:40)
[2023-11-21] MEDS: ACETAMINOPHEN 325 MG TAB PO PRN (23:40)
--- NOTE | 2023-11-22 07:26 | Hospitalist Progress Note ---
Date of Service November 22, 2023 Assessment & Plan (1) Anemia: Plan: No apparent melena or hematochezia. She is a Oriental orthodox and will not allow any blood products if transfusion would be recommended. hgb has remained stable in the mid 8 gm range (2) Type 2 diabetes mellitus: Plan: A1c is 10.1->previously on metformin at last pcp visit, at that time A1c was 6.6 Sliding-scale coverage. ADA diet. She is insulin alvaro and will avoid scheduled basal insulin for now. family requests to restart metformin at discharge presented with pseudohyponatremia now corrected (3) Hypertension: Plan: Stable. Continue current medical management amlodipine and lasix (4) Acute kidney injury: Plan: resolved (5) Frequent falls: Plan: Supportive care. OT and PT assessments pt ok to return home with some extra support due to dementia (6) Chronic cough: Plan: Speech therapy consultation and recommendations appreciated. Video swallow with mild oropharyngeal dysphagia with no aspiration , suspect esophageal dysfunction. aspiration and reflux precautions will try glycopyrrolate one dose Plan home with home health if hgb remains stable Admission and Anticipated Discharge Date Admission Date: November 19, 2023 Results & Data Results & Data Vital Signs (Past 12 Hours) Vital Signs Temp Pulse Pulse Resp BP Pulse Ox O2 Del Method 11/22/23 03:30 97.9 F 78 16 136/59 L 95 Room Air 11/22/23 00:15 72 11/21/23 23:42 98.1 F 87 18 132/68 96 Room Air 11/21/23 22:55 Room Air PG Care Time/CCT Total # of Minutes Spent Total Time Spent with Patient: Total time spent is greater than 50% in coordination of care (as documented) at patient's floor/unit and/or counseling patient: Coding Diagnoses Anemia D64.9 Anemia type: unspecified type Type 2 diabetes mellitus E11.9 Primary hypertension I10 Hypertension type: primary hypertension Acute kidney injury N17.9 Frequent falls R29.6 Chronic cough R05.3 (1) Anemia Anemia type: unspecified type Qualified Code(s): D64.9 - Anemia, unspecified (3) Hypertension Hypertension type: primary hypertension Qualified Code(s): I10 - Essential (primary) hypertension
[2023-11-22 07:55] LABS: Hematocrit (blood only) 27.1 % (37.0-47.0); Hemoglobin 8.1 g/dl (12.0-16.0); Mean Corpuscular Hemoglobin 23.8 pg (25.0-34.0); Mean Corpuscular Hgb Conc 29.9 g/dL (32.0-36.0); Mean Corpuscular Volume 79.7 fL (80.0-100.0); Mean Platelet Volume 10.6 fL (9.4-12.4); Platelet Count 155 K/uL (130-400); RDW Coefficient of Variation 16.2 % (11.5-14.5); RDW Standard Deviation 46.7 fL (36.4-46.3); White Blood Count 4.62 K/ul (4.8-10.8)
--- NOTE | 2023-11-22 12:54 | Discharge Summary ---
Discharge Summary Date of Service November 22, 2023 Principal Dx & Hospital Course #1 = Principal Diagnosis (1) Anemia: No apparent melena or hematochezia. She is a Sikh and will not allow any blood products if transfusion would be recommended. history of iron deficiency anemia in the past hgb has remained stable in the mid 8 gm range (2) Type 2 diabetes mellitus: A1c is 10.1->previously on metformin at last pcp visit, at that time A1c was 6.6 family educated on diet, and metformin stopped due gi issues that did not change once stopped, family requests to restart metformin at discharge presented with pseudohyponatremia now corrected (3) Hypertension: Stable. Continue current medical management amlodipine and lasix (4) Acute kidney injury: resolved (5) Frequent falls: Supportive care. OT and PT assessments pt ok to return home with some extra support due to dementia (6) Chronic cough: Speech therapy consultation and recommendations appreciated. Video swallow with mild oropharyngeal dysphagia with no aspiration , suspect esophageal dysfunction. aspiration and reflux precautions improved cough after one dose of glycopyrrolate home on bid dosing and consider referral to esophageal motility if this is not helpful Plan home with home health if hgb remains stable Notes For Next Care Provider We did try to arrange outpt infusions of iron but due to holiday not sure if was secured, please reach out to see if she can benefit from venofer trying glycopyrolate bid for one month to see is cough is better from esophageal standpoint, continuing all other cough directed medications requests to restart metformin, he also had dietary discretion reinforced Admission HPI Per Admitting Provider Pt is a 78 yo female with PMH of dementia, GI bleed, HTN, HLD, recurrent syncope, cirrhosis, and DM presenting due to 2 falls within the last 24hrs. Pt seen at bedside with her providing the history. Pt's reports that she fell last night around 11:30PM. He helped her up- she did not want to go to the hospital at that time. They awoke Monday morning to get ready for their bahai service. Her was downstairs waiting for her but she did not come down for awhile so he went to check on her. She was lying on the bed with only her bra and underwear on; he helped her get dressed and downstairs for their bahai service. The rest of the day was uneventful until the pt had another episode of severe weakness and a fall. Her was able to catch her mostly but she still ended up on the floor as the pt was completely unable to bear any of her weight d/t what the noted as extremely weak legs. This prompted him to bring her to the ER tonight. He also notes that she has had a cough now for almost a year and half. Her PCP and [employer] have been trying to find the source. She also saw a child development associate teacher for this as well with no clear cause. This is of major concern for the pt's because he believes it is contributing to her weakness and she also urinates every time she coughs. She was recently trialed on singulair to help the cough but this seemed to make her confusion worse so her stopped giving this medication. In the ER, pt was given 1L NS. Discharge Exam Pale but without distress cardiac is regular lungs clear abdomen is benign, does have memory issues Updated Medication List Medication Instructions Recorded Confirmed Type lancets #50 ea 12/17/18 11/02/23 Rx multivitamin 1 tab PO QAM 12/17/18 11/19/23 History blood sugar diagnostic #100 ea 05/31/19 11/02/23 Rx cyanocobalamin (vitamin B-12) 500 1,000 mcg (2 x 500 mcg) PO QAM #30 03/26/22 11/19/23 Rx mcg tablet tabs atorvastatin 10 mg tablet 10 mg PO DAILY #100 tabs 08/17/22 11/19/23 Rx donepezil 5 mg tablet 5 mg PO DAILY #90 tabs 09/22/22 11/19/23 [facility]ets [facility] ea 09/28/22 11/02/23 Rx Lancets) sodium chloride, sodium See Rx Instructions .Route 11/18/22 11/19/23 Rx bicarb-nasal rinse squeeze bottle .COMPLEX #50 ea with packet ([facility] Sinus Rinse Complete with packet) magnesium oxide 400 mg (241.3 mg 400 mg PO TID #90 tabs 12/30/22 11/19/23 Rx magnesium) tablet blood sugar diagnostic (OneTouch #50 ea 01/17/23 11/02/23 Rx Verio test strips) escitalopram oxalate 20 mg tablet 20 mg PO QAM #90 tabs 05/24/23 11/19/23 Rx amlodipine 5 mg tablet 5 mg PO DAILY #30 tabs 06/01/23 11/19/23 Rx furosemide 20 mg tablet (Lasix) 20 mg PO DAILY #30 tabs 06/01/23 11/19/23 Rx docusate sodium 100 mg capsule 100 mg PO BID #20 caps 06/18/23 11/19/23 Rx cetirizine 10 mg tablet (Zyrtec) 10 mg PO DAILY allergy symptoms 07/24/23 11/19/23 Rx #90 tabs ipratropium bromide 21 mcg (0.03 2 spray intranasal BID PRN chronic 07/24/23 11/19/23 Rx %) nasal spray cough #30 mL potassium chloride 10 mEq 10 meq PO DAILY #30 tabs 07/27/23 11/19/23 Rx tablet,extended release Synthroid 75 mcg tablet 75 mcg PO DAILY #30 tabs 08/11/23 11/19/23 Rx (levothyroxine) albuterol sulfate 90 mcg/actuation 2 inh inhalation Q6H cough #1 ea 09/12/23 11/19/23 Rx breath activated powder inhaler,sensor (Proair Digihaler) montelukast 10 mg tablet 10 mg PO DAILY #30 tabs 11/02/23 11/19/23 Rx pantoprazole 40 mg tablet,delayed 40 mg PO BID #60 tabs 11/03/23 11/19/23 Rx release (Protonix) glycopyrrolate 1 mg tablet 1 mg PO BID #60 tabs 11/22/23 Rx (Robinul) metformin 500 mg tablet 500 mg PO BID #60 tabs 11/22/23 Rx Hospital Stay Data Consultations 11/19/23 22:47 ED Decision to Admit Stat Diagnostic Imagining Performed 11/19/23 20:17 CT cervical spine wo con Stat CT head/brain wo con Stat 11/20/23 00:51 CT chest diagnostic wo con Routine 11/21/23 10:30 FL video swallow Routine Pending Results Patient Have Any Pending Studies at Discharge: No Discharge Instructions Given to Patient (Per Discharging Provider) Please reconnect to hematology to continue outpt iron infusions please take a multiple vitamin a day restart your metformin at 500mg twice a day we are going to try robinul for your cough, consider discussing your cough with your primary care to see if you can be revered to an esophageal motility expert Total Time Total Time Spent Total Time Spent (In Minutes): It required greater than 30 minutes to prepare this patient for discharge. Coding Level of Care Code 40141 INP/OBS DISCH >30 MIN Diagnoses Anemia D64.9 Anemia type: unspecified type Type 2 diabetes mellitus E11.9 Primary hypertension I10 Hypertension type: primary hypertension Acute kidney injury N17.9 Frequent falls R29.6 Chronic cough R05.3
== END 2023-11-22 14:40 | disposition home or self-care (01) | DRG 812 ==
LOC: ED 18:50 → SUATTDRO 23:59 → EDINP 23:59 → 2N 11-20 10:04

== ENCOUNTER 2023-12-26 17:48 | Inpatient (IN) ==
--- NOTE | 2023-12-26 17:59 | Emergency Department Note ---
Impression & Plan Syncope, Anemia, Acute hyponatremia, Fall ED Provider Note NAME: ESTEPHANIE LYNN AGE: 78 SEX: F : 1945 ARRIVES VIA: Ambulance INFORMANT: Patient ED PROVIDER(S): Mack Slater DO CHIEF COMPLAINT: Fall HPI: Patient is an 78-year-old female with a past medical history of anemia, GERD, asthma, diabetes, hypertension and dementia who presents the ER following a witnessed fall per the . They note that she tripped over the garage going into the garage. Patient denies all complaints with exception of right ankle pain and right hip pain. She denies any loss of consciousness. No chest pain or shortness of breath. No dysuria, urgency, or frequency. present at bedside and notes that he was helping the walk and she just became limp. He believes she passed out. She did not trip. Tetanus is up-to-date. ADDITIONAL HISTORY OBTAINED: Per HPI Chronic Medical/Social Conditions Affecting Care: Per HPI PAST MEDICAL HISTORY:See Below PAST SURGICAL HISTORY:See Below FAMILY HISTORY:See Below SOCIAL HISTORY:See Below HOME MEDICATIONS:See Below ALLERGIES:See Below VITALS:See Below PHYSICAL EXAMINATION: GENERAL: alert, well appearing, well nourished, no distress, non-toxic HEAD: normal cephalic, atraumatic EYE EXAM: normal conjunctiva, PERRL and EOM's grossly intact OROPHARYNX: no exudate, no erythema, lips, buccal mucosa, and tongue normal and mucous membranes are moist NECK: supple, no nuchal rigidity, no adenopathy, non-tender CHEST: stable to compression anteriorly and posteriorly LUNGS: clear to auscultation. Normal chest wall mechanics HEART: no murmurs, S1 normal and S2 normal ABDOMEN: abdomen soft, non-tender, normo-active bowel sounds, no masses, no rebound or guarding. PELVIS: stable to compression anteriorly and posteriorly BACK: Back is symmetrical on inspection and there is no deformity, no midline tenderness, no CVA tenderness. UPPER EXTREMITIES: full active and passive range of motion of all joints without tenderness to palpation. Small linear superficial laceration to the right second digit on the palmar surface distal aspect. No active bleeding. Does not gape. LOWER EXTREMITIES: full active and passive range of motion of all joints without tenderness to palpation NEURO EXAM: Normal sensorium, cranial nerves II-XII grossly intact, normal speech, no gross weakness of arms, no gross weakness of legs. GCS: 15. MEDICAL DECISION MAKING: Patient is an 78-year-old female who presents ER for above-stated complaint. IV was established blood work is obtained. Labs show no significant leukocytosis. Mild anemia at 9.6 fairly consistent with previous. BMP with mild hyponatremia at 129. Creatinine 1.3. Glucose elevated 166. LFTs bilirubin was unremarkable. Troponin was negative. UA resulted after admission had leuks as well as bacteria and will defer to the hospitalist as they did order Cipro. CTs of the head and neck as well as hip ankle and knee showed no acute fractures. Patient was discussed with the hospitalist for further evaluation management treatment. Consults/Care Managements Discussions: Per [facility] Triage Nursing notes reviewed. Limited review of prior medical records performed Vital Signs: reviewed and remarkable for no significant abnormalities Differential diagnosis: Differential diagnosis includes etiologies such as vasovagal event, infection, hypoglycemia, electrolyte abnormalities, cardiac sources, intracerebral event, toxicologic, neurologic, as well as others were entertained. ER treatment provided: See below Diagnostics interpreted by me include EKG and cardiac monitoring as listed below: -Cardiac Monitoring: An order was placed for continuous cardiac monitoring. The monitor shows a rate of 70 with sinus rhythm. -ECG: Sinus rhythm rate 72 Normal axis No PVCs QTc 435 -Laboratory studies:Interpreted by me as stated above in MDM and shown below. Imaging studies: Xrays: As interpreted by me: X-ray of the right knee shows no acute fracture or dislocation X-ray of the ankle read by radiology showed no acute fracture X-ray of the hip and pelvis showed no acute fracture CTs show: CT of the head and neck was negative per radiology Procedures:none Critical Care: None Past Med/Surg History Problem List (Updated 12/26/23 @ 21:45 by Mack Slater DO) Fall (Acute) Acute hyponatremia (Acute) Anemia (Acute) Syncope (Acute) Dehydration Ankle pain, right Fall Anemia (Acute) Constipation Encounter for interrogation of cardiac recorder Cough Chronic cough Allergic rhinitis Recurrent syncope Status post placement of implantable loop recorder Hypomagnesemia History of syncope hx- no issues in years ADMITTED [facility] 12/31/18-EKG/ECHO /HOLTER MONITOR-NO DIAGNOSIS PER PT- Cirrhosis LGI bleed 03/[address]22 [place] Dementia Asthma mild, rarley uses inhaler GERD (gastroesophageal reflux disease) Anxiety and depression Lumbar spinal stenosis TMJ syndrome Type 2 diabetes mellitus Hypertension Hypothyroidism Medical History Vitamin D deficiency Falls frequently Syncope, vasovagal Seasonal allergies mild Implantable loop recorder present follows w/ Dr Milian last visit 02/2022 Acute upper GI bleed Nausea and vomiting after administration of anesthetic agent Surgical History History of esophagogastroduodenoscopy (EGD) Hx of colonoscopy Status post total hip replacement, 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) S/P total hysterectomy and bilateral salpingo-oophorectomy S/P tonsillectomy S/P cholecystectomy S/P appendectomy Family History Father Hypertension Myocardial infarction Diabetes Coronary heart disease Sister Coronary heart disease Mother Diabetes Myocardial infarction Coronary heart disease Hypertension Denies family history of Ovarian cancer Prostate cancer Breast cancer Colorectal cancer Social History Smoking Status: Never smoker Second Hand Exposure: No; Do You Dip or Chew Tobacco: No; Hx Alcohol Use: No Hx Substance Use: No Preferred Language: Slovenian Communication Ability: Effective Visual Impairment: Limited Hearing Ability: Normal Hay Buckler Required: No Beliefs That Will Affect Care: Episcopal Episcopal Beliefs: Jehovah witness- no blood products marital status: Current Living Situation: Spouse current occupational status: retired Feels Safe at Home: Yes Childhood Exposure to Second-Hand Smoke: No Diet: regular Diet Comment: regular caffeine: No during the past year weight has: remained stable Dental Care, Regularly: Yes Physical Activity Frequency: 1-2 Times per Week Seatbelt Use: always Sunscreen Use: Yes Assistive Devices: Stair Lift, Walker and Other Allergies Allergies Allergy/AdvReac Type Severity Reaction Status Date / Time bee venom protein (honey bee) Allergy Severe SWELLS UP Verified 12/26/23 19:38 cefazolin Allergy Severe SHORTNESS Verified 12/26/23 19:38 OF BREATH adhesive Allergy Intermediate HIVES WITH Verified 12/26/23 19:38 TAPE azithromycin Allergy Unknown CAN'T Verified 12/26/23 19:38 REMEMBER candesartan AdvReac Intermediate cough Verified 12/26/23 19:38 enalapril AdvReac Intermediate cough Verified 12/26/23 19:38 lisinopril AdvReac Intermediate COUGH Verified 12/26/23 19:38 morphine AdvReac Intermediate ABNORMAL Verified 12/26/23 19:38 DREAMS/PASSED OUT nitroglycerin AdvReac Intermediate GI SYMPTOMS Verified 12/26/23 19:38 Home Meds Home Medications Medication Instructions Recorded Confirmed multivitamin 1 tab PO QAM 12/17/18 12/26/23 Previous Rx's Medication Instructions Recorded cyanocobalamin (vitamin B-12) 500 1,000 mcg (2 x 500 mcg) PO QAM #30 03/26/22 mcg tablet tabs donepezil 5 mg tablet 5 mg PO DAILY #90 tabs 09/22/22 magnesium oxide 400 mg (241.3 mg 400 mg PO TID #90 tabs 12/30/22 magnesium) tablet escitalopram oxalate 20 mg tablet 20 mg PO QAM #90 tabs 05/24/23 amlodipine 5 mg tablet 5 mg PO DAILY #30 tabs 06/01/23 docusate sodium 100 mg capsule 100 mg PO BID #20 caps 06/18/23 cetirizine 10 mg tablet (Zyrtec) 10 mg PO DAILY allergy symptoms 07/24/23 #90 tabs ipratropium bromide 21 mcg (0.03 2 spray intranasal BID PRN chronic 07/24/23 %) nasal spray cough #30 mL potassium chloride 10 mEq 10 meq PO DAILY #30 tabs 07/27/23 tablet,extended release albuterol sulfate 90 mcg/actuation 2 inh inhalation Q6H cough #1 ea 09/12/23 breath activated powder inhaler,sensor (Proair Digihaler) pantoprazole 40 mg tablet,delayed 40 mg PO BID #60 tabs 11/03/23 release (Protonix) metformin 500 mg tablet 500 mg PO BID #60 tabs 11/22/23 Synthroid 75 mcg tablet 75 mcg PO DAILY #30 tabs 11/24/23 (levothyroxine) furosemide 20 mg tablet (Lasix) 20 mg PO DAILY #30 tabs 11/29/23 atorvastatin 10 mg tablet 10 mg PO DAILY #100 tabs 12/02/23 blood-glucose meter (OneTouch #1 ea 12/05/23 Ultra2 Meter) blood sugar diagnostic (OneTouch #100 ea 12/11/23 Verio test strips) fluticasone propionate 50 1 spray intranasal DAILY #16 grams 12/11/23 mcg/actuation nasal spray,suspension (Flonase Allergy Relief) lancets 33 gauge #100 ea 12/11/23 glycopyrrolate 1 mg tablet 1 mg PO BID #60 tabs 12/25/23 (Shaan) Results & Data (ED) Vital Signs Vital Signs - 24 hr 12/26/23 18:11 12/26/23 18:11 12/26/23 18:11 Temperature 36.6 C Temperature Source Oral Pulse Rate 67 Pulse Rate [Apical] 72 Respiratory Rate 20 20 Blood Pressure 135/81 Blood Pressure [Right Arm] 135/81 Blood Pressure Mean 99 Blood Pressure Mean [Right Arm] 99 Pulse Oximetry 95 95 95 Oxygen Delivery Method Room Air Room Air Room Air Sepsis Recent Fever Within 48 Hours No Sepsis New/Unexplained Change in Mental Status No Sepsis Action Taken by Nursing No Action Required Laboratory Data 12/26/23 18:07 12/26/23 18:07 Lab Results 12/26/23 12/26/23 12/26/23 Range/Units 18:07 19:29 20:48 WBC 9.68 (4.8-10.8) K/ul RBC 4.01 L (4.20-5.40) M/uL Hgb 9.6 L (12.0-16.0) g/dl Hct 31.7 L (37.0-47.0) % MCV 79.1 L (80.0-100.0) fL MCH 23.9 L (25.0-34.0) pg MCHC 30.3 L (32.0-36.0) g/dL RDW Std Deviation 54.5 H (36.4-46.3) fL RDW Coeff of [place] 19.1 H (11.5-14.5) % Plt Count 241 (130-400) K/uL MPV 10.3 (9.4-12.4) fL Immature Gran % (Auto) 0.3 % Neut % (Auto) 77.9 % Lymph % (Auto) 11.2 % [place] % (Auto) 7.2 % Eos % (Auto) 3.0 % Baso % (Auto) 0.4 % Neut # (Auto) 7.54 H (1.40-6.50) K/uL Lymph # (Auto) 1.08 L (1.20-3.40) K/uL [place] # (Auto) 0.70 H (0.11-0.59) K/uL Eos # (Auto) 0.29 (0.00-0.50) K/uL Baso # (Auto) 0.04 (0.00-0.20) K/uL Immature Gran # (Auto) 0.03 (0.01-0.20) K/uL Sodium 129 L (136-145) mmol/L Potassium 4.9 (3.5-5.1) mmol/L Chloride 95 L (98-107) mmol/L Carbon Dioxide 22 (21-32) mmol/L Anion Gap 12 H (3-11) BUN 33 H (6-23) mg/dl Creatinine 1.33 H (0.6-1.2) mg/dl Est Cr Clr Drug Dosing 31.6 ml/min Est GFR ( Amer) 43.6 ml/min Est GFR (Non-Af Amer) 37.7 ml/min BUN/Creatinine Ratio 24.8 H (10-20) Glucose 166 H (70-99(Fasting)) mg/dl POC Glucose 206 H (70-99) mg/dl Calcium 9.3 (8.6-10.3) mg/dl Total Bilirubin 0.5 (0.2-1.0) mg/dl AST 26 (13-39) U/L ALT 14 (7-52) U/L Alkaline Phosphatase 81 (34-104) U/L Troponin I High Sens 9.3 (0-14) pg/ml Total Protein 7.4 (6.0-8.3) gm/dl Albumin 4.2 (3.4-5.0) gm/dl Globulin 3.2 (2.5-4.0) gm/dl Albumin/Globulin Ratio 1.3 (0.9-2) Urine Color Yellow Urine Appearance Cloudy A (Clear) Urine pH 5.5 (4.5-7.5) Ur Specific [place] 1.016 (1.000-1.030) Urine Protein Negative (Negative) Urine Glucose (UA) Negative (Negative) Urine Ketones Negative (Negative) Urine Blood Negative (Negative) Urine Nitrite Negative (Negative) Urine Bilirubin Negative (Negative) Urine Urobilinogen Negative (Negative) Ur Leukocyte Esterase 2+ H (Negative) Urine WBC (Auto) 0-5 (0-5) /hpf Urine RBC (Auto) 11-20 H (0-2) /hpf U Hyaline Cast (Auto) 0-2 (0-2) /lpf U Epithel Cells (Auto) 0-2 (0-2) /hpf Urine Bacteria (Auto) 3+ H (None Seen) Administered Medications Ciprofloxacin (Cipro / D5w) 400 mg in 200 mls @ 100 mls/hr IV NOW STA; Protocol Stop: 12/26/23 22:11 Last Admin: 12/26/23 20:40 Dose: 100 mls/hr Documented By: ALVIN Insulin Aspart (Insulin Aspart Per Unit Charge) 0 units SC ACHS [place] Stop: 01/25/24 20:59 Last Admin: 12/26/23 20:55 Dose: 1 units Documented By: ALVIN Co-signed By: MAY Discontinued Medications Acetaminophen (Acetaminophen 325 Mg Tab) 650 mg PO NOW STA Stop: 12/26/23 20:19 Last Admin: 12/26/23 20:39 Dose: 650 mg Documented By: ALVIN Diphtheria/Pertussis/Tetanus Vacc (Diphther/Tetan/Pertus Vaccine (Tdap, Adol/Adult) 0.5ml) 0.5 ml IM .ONCE ONE Stop: 12/26/23 19:26 Last Admin: 12/26/23 19:42 Dose: 0.5 ml Documented By: ALVIN Imaging Data Radiologist's Impression: Ankle X-Ray 12/26/23 17:55 XR ankle RT min 3V routine CLINICAL HISTORY: r ankle pain TECHNIQUE: 3 views of the right ankle were obtained. Comparison: None available at the time of this dictation. FINDINGS: No fractures are present. Degenerative changes are seen. Soft tissue swelling is seen about the ankle. IMPRESSION: Soft tissue swelling is seen without evidence of underlying bony abnormality. ACT 112: Negative or not required by law. Electronically signed by: Shelton Goins M.D. 12/26/2023 6:[address] 12/26/23 17:55 Exam(s): CT C SPINE EXAM: CT Cervical Spine Without Intravenous Contrast CLINICAL HISTORY: Reason for exam: fall. TECHNIQUE: Axial computed tomography images of the cervical spine without intravenous contrast. CTDI is 20.34 mGy and DLP is 399.49 mGy-cm. Automated exposure control was utilized for the study. A dose lowering technique was utilized adhering to the principles of ALARA. COMPARISON: 11/19/2023 FINDINGS: Vertebrae: No acute fracture or malalignment. Soft tissues: Unremarkable. IMPRESSION: No acute fracture or malalignment. Electronically signed by: Christoph Cam MD 12/26/23 19:[address] 12/26/23 17:55 Exam(s): CT HEAD Without Contrast EXAM: CT Head Without Intravenous Contrast CLINICAL HISTORY: Reason for exam: fall. TECHNIQUE: Axial computed tomography images of the head/brain without intravenous contrast. CTDI is 36.67 mGy and DLP is 546.36 mGy-cm. Automated exposure control was utilized for the study. A dose lowering technique was utilized adhering to the principles of ALARA. COMPARISON: 11/19/2023 FINDINGS: Brain: Atrophy and chronic microvascular ischemic changes. No intracranial hemorrhage, mass-effect, or cerebral edema. Ventricles: Prominence of the ventricles in keeping with the degree of volume loss. Bones/joints: Unremarkable. No fracture. Soft tissues: Unremarkable. Sinuses: No acute sinusitis. Mastoid air cells: Unremarkable as visualized. IMPRESSION: 1. No acute intracranial abnormality. Electronically signed by: Christoph Cam MD 12/26/23 19:24 PM Hip/Pelvis X-Ray 12/26/23 17:55 XR hip RT 2V w pelvis CLINICAL HISTORY: r john/pelvis TECHNIQUE: 2 views of the right hip and single frontal view of the pelvis were obtained. Comparison: Comparison is made to pelvis radiograph 06/12/2023 FINDINGS: There is no evidence of an acute fracture. Degenerative changes are seen in the hip joint. Right hip arthroplasty is seen. No soft tissue abnormality is seen. IMPRESSION: No evidence of acute osseous injury. ACT 112: Negative or not required by law. Electronically signed by: Shelton Goins M.D. 12/26/2023 6:40 PM Knee X-Ray 12/26/23 17:55 XR knee RT 3V CLINICAL HISTORY: r knee pain TECHNIQUE: 3 views of the right knee were obtained. Comparison: None available at the time of this dictation. FINDINGS: There is no evidence of an acute fracture. Joint spaces are well-preserved. No joint effusion is seen. No soft tissue abnormality is seen. IMPRESSION: No evidence of acute osseous injury. ACT 112: Negative or not required by law. Electronically signed by: Shelton Goins M.D. 12/26/2023 6:41 PM Discharge Plan Visit Data Chief Complaint: Fall ED Provider: Mack Slater Discharge Problem: Syncope, Anemia, Acute hyponatremia, Fall Forms Stand Alone Forms: My [facility] Prescriptions Prescriptions: No Action multivitamin tablet 1 tab PO QAM donepezil 5 mg tablet 5 mg PO DAILY Qty: 90 2RF magnesium oxide 400 mg (241.3 mg magnesium) tablet 400 mg PO TID Qty: 90 3RF escitalopram oxalate 20 mg tablet 20 mg PO QAM Qty: 90 3RF cetirizine [Zyrtec] 10 mg tablet 10 mg PO DAILY Qty: 90 1RF ipratropium bromide 21 mcg (0.03 %) spray,non-aerosol 2 spray intranasal BID PRN (Reason: chronic cough) Qty: 30 5RF Rx Instructions: administer into each nostril potassium chloride 10 mEq tablet extended release 10 meq PO DAILY Qty: 30 5RF Hold Instructions: Provider's Order pantoprazole [Protonix] 40 mg tablet,delayed release (DR/EC) 40 mg PO BID Qty: 60 5RF levothyroxine [Synthroid] 75 mcg tablet 75 mcg PO DAILY Qty: 30 2RF furosemide [Lasix] 20 mg tablet 20 mg PO DAILY Qty: 30 5RF Hold Instructions: Provider's Order atorvastatin 10 mg tablet 10 mg PO DAILY Qty: 100 3RF (DME) blood-glucose meter [OneTouch Ultra2 Meter] Misc See Rx Instructions .Route Qty: 1 0RF Rx Instructions: testing twice daily DX: E11.9 glycopyrrolate [Robinul] 1 mg tablet 1 mg PO BID Qty: 60 0RF Proair Digihaler 90 mcg/actuation aero powdr breath act w/sensor 2 inh inhalation Q6H Qty: 1 3RF amlodipine 5 mg tablet 5 mg PO DAILY Qty: 30 11RF fluticasone propionate [Flonase Allergy Relief] 50 mcg/actuation spray,suspension 1 spray intranasal DAILY Qty: 16 2RF Rx Instructions: administer into each nostril (DME) OneTouch Verio test strips Strip See Rx Instructions .ROUTE .MEDSUPPLY Qty: 100 11RF Rx Instructions: Testing blood sugar twice daily (DME) lancets 33 gauge misc See Rx Instructions .ROUTE .MEDSUPPLY Qty: 100 3RF Rx Instructions: Testing blood sugar twice daily cyanocobalamin (vitamin B-12) 500 mcg Tablet 1,000 mcg PO QAM Qty: 30 0RF docusate sodium 100 mg Capsule 100 mg PO BID Qty: 20 0RF metformin 500 mg tablet 500 mg PO BID Qty: 60 5RF Referrals Referrals: Candis Lee DO [Primary Care Provider] - Discharge Problem: Syncope Qualifiers: Syncope type: unspecified Qualified Code(s): R55 - Syncope and collapse Anemia Qualifiers: Anemia type: unspecified type Qualified Code(s): D64.9 - Anemia, unspecified Fall Qualifiers: Encounter type: initial encounter Qualified Code(s): W19.XXXA - Unspecified fall, initial encounter
[2023-12-26 18:26] LABS: Basophils # (auto) 0.04 K/uL (0.00-0.20); Basophils % (auto) 0.4 %; Eosinophils # (auto) 0.29 K/uL (0.00-0.50); Hematocrit (blood only) 31.7 % (37.0-47.0); Hemoglobin 9.6 g/dl (12.0-16.0); Immature Granulocytes # (auto) 0.03 K/uL (0.01-0.20); Immature Granulocytes % (auto) 0.3 %; Lymphocytes # (auto) 1.08 K/uL (1.20-3.40); Lymphocytes % (auto) 11.2 %; Mean Corpuscular Hemoglobin 23.9 pg (25.0-34.0); Mean Corpuscular Hgb Conc 30.3 g/dL (32.0-36.0); Mean Corpuscular Volume 79.1 fL (80.0-100.0); Mean Platelet Volume 10.3 fL (9.4-12.4); Monocytes % (auto) 7.2 %; Neutrophils # (auto) 7.54 K/uL (1.40-6.50); Neutrophils % (auto) 77.9 %; Platelet Count 241 K/uL (130-400); RDW Coefficient of Variation 19.1 % (11.5-14.5); RDW Standard Deviation 54.5 fL (36.4-46.3); Red Blood Count 4.01 M/uL (4.20-5.40); White Blood Count 9.68 K/ul (4.8-10.8)
[2023-12-26 18:36] LABS: Albumin Globulin Ratio 1.3 (0.9-2); Albumin Level 4.2 gm/dl (3.4-5.0); BUN Creatinine Ratio 24.8 (10-20); Bilirubin,Total 0.5 mg/dl (0.2-1.0); Calcium 9.3 mg/dl (8.6-10.3); Creatinine Clr Calc Pharmacy 31.6 ml/min; Est GFR (African American) 43.6 ml/min; Est GFR (Non-African American) 37.7 ml/min; Globulin 3.2 gm/dl (2.5-4.0); Potassium 4.9 mmol/L (3.5-5.1); Total Protein 7.4 gm/dl (6.0-8.3)
--- NOTE | 2023-12-26 18:42 | XRay Report ---
XR knee RT 3V CLINICAL HISTORY: r knee pain TECHNIQUE: 3 views of the right knee were obtained. Comparison: None available at the time of this dictation. FINDINGS: There is no evidence of an acute fracture. Joint spaces are well-preserved. No joint effusion is seen . No soft tissue abnormality is seen. IMPRESSION: No evidence of acute osseous injury. ACT 112: Negative or not required by law. Electronically signed by: Shelton Goins M.D. 12/26/2023 6:41 PM
--- NOTE | 2023-12-26 18:42 | XRay Report ---
XR hip RT 2V w pelvis CLINICAL HISTORY: r john/pelvis TECHNIQUE: 2 views of the right hip and single frontal view of the pelvis were obtained. Comparison: Comparison is made to pelvis radiograph 06/12/2023 FINDINGS: There is no evidence of an acute fracture. Degenerative changes are seen in the hip joint. Right hip arthroplasty is seen. No soft tissue abnormality is seen. IMPRESSION: No evidence of acute osseous injury. ACT 112: Negative or not required by law. Electronically signed by: Shelton Goins M.D. 12/26/2023 6:40 PM
--- NOTE | 2023-12-26 18:42 | XRay Report ---
XR ankle RT min 3V routine CLINICAL HISTORY: r ankle pain TECHNIQUE: 3 views of the right ankle were obtained. Comparison: None available at the time of this dictation. FINDINGS: No fractures are present. Degenerative changes are seen. Soft tissue swelling is seen about the ankle . IMPRESSION: Soft tissue swelling is seen without evidence of underlying bony abnormality. ACT 112: Negative or not required by law. Electronically signed by: Shelton Goins M.D. 12/26/2023 6:41 PM
[2023-12-26 19:16] LABS: Troponin I High Sensitivity 9.3 pg/ml (0-14)
--- NOTE | 2023-12-26 19:25 | CT Scan Report ---
Exam(s): CT HEAD Without Contrast EXAM: CT Head Without Intravenous Contrast CLINICAL HISTORY: Reason for exam: fall. TECHNIQUE: Axial computed tomography images of the head/brain without intravenous contrast. CTDI is 36.67 mGy and DLP is 546.36 mGy-cm. Automated exposure control was utilized for the study. A dose lowering technique was utilized adhering to the principles of ALARA. COMPARISON: 11/19/2023 FINDINGS: Brain: Atrophy and chronic microvascular ischemic changes. No intracranial hemorrhage, mass-effect, or cerebral edema. Ventricles: Prominence of the ventricles in keeping with the degree of volume loss. Bones/joints: Unremarkable. No fracture. Soft tissues: Unremarkable. Sinuses: No acute sinusitis. Mastoid air cells: Unremarkable as visualized. IMPRESSION: 1. No acute intracranial abnormality. Electronically signed by: Christoph Cam MD 12/26/23 19:24 PM
--- NOTE | 2023-12-26 19:27 | CT Scan Report ---
Exam(s): CT C SPINE EXAM: CT Cervical Spine Without Intravenous Contrast CLINICAL HISTORY: Reason for exam: fall. TECHNIQUE: Axial computed tomography images of the cervical spine without intravenous contrast. CTDI is 20.34 mGy and DLP is 399.49 mGy-cm. Automated exposure control was utilized for the study. A dose lowering technique was utilized adhering to the principles of ALARA. COMPARISON: 11/19/2023 FINDINGS: Vertebrae: No acute fracture or malalignment. Soft tissues: Unremarkable. IMPRESSION: No acute fracture or malalignment. Electronically signed by: Christoph Cam MD 12/26/23 19:26 PM
--- NOTE | 2023-12-26 19:39 | History & Physical Report ---
Date of Service December 26, 2023 Assessment & Plan (1) Fall: Plan: Admit to med telemetry Currently stable nontoxic-appearing Presented to the ED via EMS after sustaining an assisted fall to the ground while trying to step up into their garage Patient's is unsure if the patient lost consciousness while try to step up to the rash as she reportedly went limp momentarily, he was able to help sisterly ground but she did land on her knees and outstretched hands Falls likely multifactorial including patient's baseline amatory dysfunction and not using her walker, UTI, dehydration, cannot rule out syncope at this time Patient appears to have a sprained right ankle as well as ice without acute trauma on exam Will obtain chest x-ray and admission for further evaluation Patient will need to be evaluated by PT/OT to determine if she is safe enough to be discharged home with her baseline ambulatory function PT/OT consulted and placed Fall/aspiration precautions Bilateral SCDs for DVT prophylaxis Heart healthy/DM type II diet AM CBC, CMP, mag, PT/INR (2) Ankle pain, right: Plan: Patient's right ankle is currently swollen mildly bruised on the lateral aspect since her fall X-ray of the right ankle is read as negative for acute fracture or dislocation Likely sustained to sprain ankle during fall Will order a splint for support As needed Tylenol for pain Elevate right lower extremity every shift PT/OT consults (3) UTI (urinary tract infection): Plan: Patient's UA appears consistent with UTI Will start every 12 hours ciprofloxacin with her previous history of allergy to cefazolin Follow urine cultures (4) Dehydration: Plan: Patient appears dehydrated on exam Will give 1 L LR overnight for hydration Hold home p.o. plan for now Monitor a.m. renal function and volume status (5) Anemia: Plan: Has a known history of iron deficiency anemia, is a Evangelical so will not receive blood products Hemoglobin is currently stable today Patient [facility]23 for possible iron transfusion Consider iron transfusion before discharge Monitor daily CBC (6) Type 2 diabetes mellitus: Plan: Monitor BSG ACHS, goal is [id number] Hold metformin for now Start CF 15 CR 15 ACHS Adjust regimen as needed (7) Hypertension: Plan: Currently stable Continue amlodipine Plan The patient was discussed with Dr. Bell at the time of the admission History of Present Illness Chief Complaint: Fall, possible syncope Primary Care Provider: Candis Lee DO Roca is an 78 yr old female with a PMH significant for dementia, GI bleed, HTN, HLD, recurrent syncope, cirrhosis, and DMII who presented to the [facility] ED on 12/26/2023 via EMS after sustaining a fall at home. She remained stable in the ED. Labs were significant for stable hemoglobin of 9.6, creatinine of 1.33 (baseline is near 0.9), corrected sodium 130, anion gap of 12 with bicarb within normal limits, with UA in process. CT of the head and brain without contrast, CT of the cervical spine, x-ray of the right hip and pelvis, and x-ray of the right knee were read as negative for acute findings. X-ray of the right ankle was read as soft tissue swelling without evidence of underlying bony abnormality. Patient was sitting in bed in no acute distress at time of exam with her bedside, history is obtained mainly from the patient's due to to her baseline mental status. He explains that the patient has been going to physical therapy due to her baseline amatory dysfunction, she normally ambulates well with a walker. He was trying to get her to their car to take her to a hair point around 4 PM this evening during the period. He had a try and use her cane or rolling walker due to trying to get into the garage to get to the car for which she has to get up 1 step. He was trying to assist her getting up the step when she appeared to fall. Her was able to assist her to the ground but she did did land on her knees and hands. They are unsure if she lost consciousness but he states that she was alert and he lowered her to the ground. She did not hit her head. Her asthma explains that she is due to have another iron transfusion tomorrow at the [facility]. Currently denies chest pain, shortness of breath, abdominal pain, nausea/vomiting, dysuria/hematuria, diarrhea, melena, or significant swelling. She does have right ankle pain and swelling since the fall. I discussed CODE STATUS with the patient and her , her explained that they do have a living will and the patient is a DNI/DNI as they are Jehovah's Witnesses. Please refer to Dr. Bell's attestation for any changes to treatment plan Allergies Allergy/AdvReac Type Severity Reaction Status Date / Time bee venom protein (honey bee) Allergy Severe SWELLS UP Verified 12/26/23 19:38 cefazolin Allergy Severe SHORTNESS Verified 12/26/23 19:38 OF BREATH adhesive Allergy Intermediate HIVES WITH Verified 12/26/23 19:38 TAPE azithromycin Allergy Unknown CAN'T Verified 12/26/23 19:38 REMEMBER candesartan AdvReac Intermediate cough Verified 12/26/23 19:38 enalapril AdvReac Intermediate cough Verified 12/26/23 19:38 lisinopril AdvReac Intermediate COUGH Verified 12/26/23 19:38 morphine AdvReac Intermediate ABNORMAL Verified 12/26/23 19:38 DREAMS/PASSED OUT nitroglycerin AdvReac Intermediate GI SYMPTOMS Verified 12/26/23 19:38 Home Medications Medication Instructions Recorded Confirmed Type multivitamin 1 tab PO QAM 12/17/18 12/26/23 History cyanocobalamin (vitamin B-12) 500 1,000 mcg (2 x 500 mcg) PO QAM #30 03/26/22 12/26/23 Rx mcg tablet tabs donepezil 5 mg tablet 5 mg PO DAILY #90 tabs 09/22/22 12/26/23 Rx magnesium oxide 400 mg (241.3 mg 400 mg PO TID #90 tabs 12/30/22 12/26/23 Rx magnesium) tablet escitalopram oxalate 20 mg tablet 20 mg PO QAM #90 tabs 05/24/23 12/26/23 Rx amlodipine 5 mg tablet 5 mg PO DAILY #30 tabs 06/01/23 12/26/23 Rx docusate sodium 100 mg capsule 100 mg PO BID #20 caps 06/18/23 12/26/23 Rx cetirizine 10 mg tablet (Zyrtec) 10 mg PO DAILY allergy symptoms 07/24/23 12/26/23 Rx #90 tabs ipratropium bromide 21 mcg (0.03 2 spray intranasal BID PRN chronic 07/24/23 12/26/23 Rx %) nasal spray cough #30 mL potassium chloride 10 mEq 10 meq PO DAILY #30 tabs 07/27/23 12/26/23 Rx tablet,extended release albuterol sulfate 90 mcg/actuation 2 inh inhalation Q6H cough #1 ea 09/12/23 12/26/23 Rx breath activated powder inhaler,sensor (Proair Digihaler) pantoprazole 40 mg tablet,delayed 40 mg PO BID #60 tabs 11/03/23 12/26/23 Rx release (Protonix) metformin 500 mg tablet 500 mg PO BID #60 tabs 11/22/23 12/26/23 Rx Synthroid 75 mcg tablet 75 mcg PO DAILY #30 tabs 11/24/23 12/26/23 Rx (levothyroxine) furosemide 20 mg tablet (Lasix) 20 mg PO DAILY #30 tabs 11/29/23 12/26/23 Rx atorvastatin 10 mg tablet 10 mg PO DAILY #100 tabs 12/02/23 12/26/23 Rx blood-glucose meter (OneTouch #1 ea 12/05/23 12/11/23 Rx Ultra2 Meter) blood sugar diagnostic (OneTouch #100 ea 12/11/23 12/11/23 Rx Verio test strips) fluticasone propionate 50 1 spray intranasal DAILY #16 grams 12/11/23 12/26/23 Rx mcg/actuation nasal spray,suspension (Flonase Allergy Relief) lancets 33 gauge #100 ea 12/11/23 12/11/23 Rx glycopyrrolate 1 mg tablet 1 mg PO BID #60 tabs 12/25/23 12/26/23 Rx (Robinul) Past Med/Surg History Problem List (Updated 12/26/23 @ 21:45 by Mack Slater DO) Fall (Acute) Acute hyponatremia (Acute) Anemia (Acute) Syncope (Acute) Dehydration Ankle pain, right Fall Anemia (Acute) Constipation Encounter for interrogation of cardiac recorder Cough Chronic cough Allergic rhinitis Recurrent syncope Status post placement of implantable loop recorder Hypomagnesemia History of syncope hx- no issues in years ADMITTED [facility] 12/31/18-EKG/ECHO /HOLTER MONITOR-NO DIAGNOSIS PER PT- Cirrhosis LGI bleed 03/2022 admitted ms Dementia Asthma mild, rarley uses inhaler GERD (gastroesophageal reflux disease) Anxiety and depression Lumbar spinal stenosis TMJ syndrome Type 2 diabetes mellitus Hypertension Hypothyroidism Medical History Vitamin D deficiency Falls frequently Syncope, vasovagal Seasonal allergies mild Implantable loop recorder present follows w/ Dr Milian last visit 02/2022 Acute upper GI bleed Nausea and vomiting after administration of anesthetic agent Surgical History History of esophagogastroduodenoscopy (EGD) Hx of colonoscopy Status post total hip replacement, 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) S/P total hysterectomy and bilateral salpingo-oophorectomy S/P tonsillectomy S/P cholecystectomy S/P appendectomy Family History Father Hypertension Myocardial infarction Diabetes Coronary heart disease Sister Coronary heart disease Mother Diabetes Myocardial infarction Coronary heart disease Hypertension Denies family history of Ovarian cancer Prostate cancer Breast cancer Colorectal cancer Social History Smoking Status: Never smoker Second Hand Exposure: No; Do You Dip or Chew Tobacco: No; Hx Alcohol Use: No Hx Substance Use: No Preferred Language: Urugu[place] Communication Ability: Effective Visual Impairment: Limited Hearing Ability: Normal Event Set Up Specialist Required: No Beliefs That Will Affect Care: Mormon Mormon Beliefs: Jehovah Witness- No blood products marital status: Current Living Situation: Spouse current occupational status: retired Feels Safe at Home: Yes Safety Concerns: Feels Safe At This Time Childhood Exposure to Second-Hand Smoke: No Diet: regular Diet Comment: regular caffeine: No during the past year weight has: remained stable Dental Care, Regularly: Yes Physical Activity Frequency: 1-2 Times per Week Seatbelt Use: always Sunscreen Use: Yes Assistive Devices: Walker Physical Exam Physical Exam: Physical Exam: General: In no acute distress, stated age, well-nourished, non-toxic appearing HEENT: Normocephalic, atraumatic, no scleral icterus, pupils around round, symmetrical, and reactive to light, moist mucus membranes, trachea midline, no thyromegaly Chest/Pulm: No respiratory distress, symmetrical chest expansion, clear breath sounds throughout Cardiac: RRR, no murmurs noted Abdomen: Negative for ascites and bruising, normoactive bowel sounds, soft, non-tender to palpation throughout Musculoskeletal: Right ankle is swollen with mild bruising on the lateral aspect, otherwise no acute trauma noted Extremities: Radial, dorsalis pedis, and posterior tibial pulses are intact and symmetrical, no edema noted in the BL LE's Skin: Warm, dry, no rashes , lesions, or scars noted Neuro: Alert and oriented to person and place, no focal defects, CN II-XII tested and intact, no tremors noted Psych: No acute distress, calm and cooperative during the exam Results & Data Results & Data Vital Signs (Past 12 Hours) Vital Signs Temp Pulse Pulse Resp BP BP Pulse Ox 12/26/23 18:11 95 12/26/23 18:11 72 20 135/81 95 12/26/23 18:11 36.6 C 67 20 135/81 95 O2 Del Method 12/26/23 18:11 Room Air 12/26/23 18:11 Room Air 12/26/23 18:11 Room Air Laboratory Results Abnormal lab results 12/26/23 12/26/23 Range/Units 18:07 19:29 RBC 4.01 L (4.20-5.40) M/uL Hgb 9.6 L (12.0-16.0) g/dl Hct 31.7 L (37.0-47.0) % MCV 79.1 L (80.0-100.0) fL MCH 23.9 L (25.0-34.0) pg MCHC 30.3 L (32.0-36.0) g/dL RDW Std Deviation 54.5 H (36.4-46.3) fL RDW Coeff of [place] 19.1 H (11.5-14.5) % Neut # (Auto) 7.54 H (1.40-6.50) K/uL Lymph # (Auto) 1.08 L (1.20-3.40) K/uL [place] # (Auto) 0.70 H (0.11-0.59) K/uL Sodium 129 L (136-145) mmol/L Chloride 95 L (98-107) mmol/L Anion Gap 12 H (3-11) BUN 33 H (6-23) mg/dl Creatinine 1.33 H (0.6-1.2) mg/dl BUN/Creatinine Ratio 24.8 H (10-20) Glucose 166 H (70-99(Fasting)) mg/dl Urine Appearance Cloudy A (Clear) Ur Leukocyte Esterase 2+ H (Negative) Urine RBC (Auto) 11-20 H (0-2) /hpf Urine Bacteria (Auto) 3+ H (None Seen) Diagnostic Findings Ankle X-Ray 12/26/23 17:55 XR ankle RT min 3V routine CLINICAL HISTORY: r ankle pain TECHNIQUE: 3 views of the right ankle were obtained. Comparison: None available at the time of this dictation. FINDINGS: No fractures are present. Degenerative changes are seen. Soft tissue swelling is seen about the ankle. IMPRESSION: Soft tissue swelling is seen without evidence of underlying bony abnormality. ACT 112: Negative or not required by law. Electronically signed by: Shelton Goins M.D. 12/26/2023 6:[address] 12/26/23 17:55 Exam(s): CT C SPINE EXAM: CT Cervical Spine Without Intravenous Contrast CLINICAL HISTORY: Reason for exam: fall. TECHNIQUE: Axial computed tomography images of the cervical spine without intravenous contrast. CTDI is 20.34 mGy and DLP is 399.49 mGy-cm. Automated exposure control was utilized for the study. A dose lowering technique was utilized adhering to the principles of ALARA. COMPARISON: 11/19/2023 FINDINGS: Vertebrae: No acute fracture or malalignment. Soft tissues: Unremarkable. IMPRESSION: No acute fracture or malalignment. Electronically signed by: Christoph Cam MD 12/26/23 19:[address] 12/26/23 17:55 Exam(s): CT HEAD Without Contrast EXAM: CT Head Without Intravenous Contrast CLINICAL HISTORY: Reason for exam: fall. TECHNIQUE: Axial computed tomography images of the head/brain without intravenous contrast. CTDI is 36.67 mGy and DLP is 546.36 mGy-cm. Automated exposure control was utilized for the study. A dose lowering technique was utilized adhering to the principles of ALARA. COMPARISON: 11/19/2023 FINDINGS: Brain: Atrophy and chronic microvascular ischemic changes. No intracranial hemorrhage, mass-effect, or cerebral edema. Ventricles: Prominence of the ventricles in keeping with the degree of volume loss. Bones/joints: Unremarkable. No fracture. Soft tissues: Unremarkable. Sinuses: No acute sinusitis. Mastoid air cells: Unremarkable as visualized. IMPRESSION: 1. No acute intracranial abnormality. Electronically signed by: Christoph Cam MD 12/26/23 19:24 PM Hip/Pelvis X-Ray 12/26/23 17:55 XR hip RT 2V w pelvis CLINICAL HISTORY: r john/pelvis TECHNIQUE: 2 views of the right hip and single frontal view of the pelvis were obtained. Comparison: Comparison is made to pelvis radiograph 06/12/2023 FINDINGS: There is no evidence of an acute fracture. Degenerative changes are seen in the hip joint. Right hip arthroplasty is seen. No soft tissue abnormality is seen. IMPRESSION: No evidence of acute osseous injury. ACT 112: Negative or not required by law. Electronically signed by: Shelton oGins M.D. 12/26/2023 6:40 PM Knee X-Ray 12/26/23 17:55 XR knee RT 3V CLINICAL HISTORY: r knee pain TECHNIQUE: 3 views of the right knee were obtained. Comparison: None available at the time of this dictation. FINDINGS: There is no evidence of an acute fracture. Joint spaces are well-preserved. No joint effusion is seen. No soft tissue abnormality is seen. IMPRESSION: No evidence of acute osseous injury. ACT 112: Negative or not required by law. Electronically signed by: Shelton Goins M.D. 12/26/2023 6:41 PM Code Status & VTE Plan Code Status DNR/DNI VTE Prophylaxis Plan VTE Prophylaxis will be ordered: Yes Supervising Physician Co-Signing Physician Notes Attending addendum: I have physically seen this patient, have supervised the YANIQUE's activities, and agree with the H&P unless as otherwise noted. Assessment and Plan: Status post fall- Patient was assisted to the ground after attempting to step up into natural history Family unsure as there was a loss of consciousness Contributing factors including not limited to: Hyponatremia, urinary tract infection, acute kidney injury, dehydration, progression of general debilitation, neuropathy Consult PT/OT UTI/dehydration- Follow urine culture sensitivity Cipro 400 mg IV every 12 hours Maintenance IV fluids as noted, LR at 80 mL/h x 1 L Right ankle pain- X-ray negative for acute fracture Splint ordered for support Acetaminophen 650 mg by mouth every 6 hours as needed for mild pain or fever Consult PT/OT Diabetes mellitus- Holding metformin Placed on Accu-Cheks with NovoLog SSI Check hemoglobin A1c PG Care Time/CCT Total # of Minutes Spent Total Time Spent with Patient: Total time spent is greater than 50% in coordination of care (as documented) at patient's floor/unit and/or counseling patient: Coding [place] [address] INT INP/OBS CARE 2/55MIN Patient Type Established Medical Decision Making Moderate Complexity Diagnoses Fall W19.XXXA Ankle pain, right M25.571 UTI (urinary tract infection) N39.0 Dehydration E86.0 Anemia D64.9 Anemia type: unspecified type Type 2 diabetes mellitus E11.9 Primary hypertension I10 Hypertension type: primary hypertension (5) Anemia Anemia type: unspecified type Qualified Code(s): D64.9 - Anemia, unspecified (7) Hypertension Hypertension type: primary hypertension Qualified Code(s): I10 - Essential (primary) hypertension
[2023-12-26] MEDS: DIPHTHER/TETAN/PERTUS Vaccine (Tdap, Adol/Adult) 0.5mL IM ONE (19:42)
[2023-12-26 19:56] LABS: Appearance Urine Cloudy (Clear); Bacteria Urine Automated 3+ (None Seen); Bilirubin Urine Negative (Negative); Blood Urine Negative (Negative); Cast Urine Automated 0-2 /lpf (0-2); Color Urine Yellow; Epithelial Cell Urine Auto 0-2 /hpf (0-2); Glucose Urine UA Negative (Negative); Ketones Urine Negative (Negative); Leukocyte Esterase Urine 2+ (Negative); Nitrite Urine Negative (Negative); Protein Urine Negative (Negative); Specific Gravity Urine 1.016 (1.000-1.030); Urobilinogen Urine Negative (Negative); WBC Urine Automated 0-5 /hpf (0-5); pH Urine 5.5 (4.5-7.5)
[2023-12-26] MEDS ORDERED: GLUCAGON FOR INJ 1 MG VIAL SQ PRN (20:17)
[2023-12-26] MEDS ORDERED: GLUCOSE 40% GEL 15 GM TUBE PO PRN (20:17)
[2023-12-26] MEDS ORDERED: GLUCOSE 10 TAB/TUBE PO PRN (20:17)
[2023-12-26] MEDS ORDERED: CARBOHYDRATES FOR HYPOGLYCEMIA PO PRN (20:17)
[2023-12-26] MEDS ORDERED: DEXTROSE 50% 50 ML SYRINGE IV PRN (20:17)
[2023-12-26] MEDS: ACETAMINOPHEN 325 MG TAB PO STA (20:39)
[2023-12-26] MEDS: CIPROFLOXACIN / D5W 400 MG/200 ML BAG IV STA (20:40)
[2023-12-26] MEDS: INSULIN ASPART PER UNIT CHARGE SC SCH (20:55)
[2023-12-26] MEDS: LACTATED RINGER'S 1,000 ML IV SCH (22:33)
[2023-12-27] MEDS: GLYCOPYRROLATE 1 MG TAB PO SCH (01:14)
[2023-12-27] MEDS: DOCUSATE SODIUM 100 MG CAP PO STA (01:14)
[2023-12-27] MEDS: PANTOprazole 40 MG TAB PO SCH (01:15)
[2023-12-27] MEDS: MAGNESIUM OXIDE 400 MG TAB PO SCH (01:15)
[2023-12-27] MEDS: ALBUTEROL HFA 8 GM INHALER INH SCH (02:13)
[2023-12-27] MEDS: LEVOTHYROXINE SODIUM 75 MCG TABLET PO SCH (04:09)
[2023-12-27 06:54] LABS: Basophils # (auto) 0.03 K/uL (0.00-0.20); Basophils % (auto) 0.4 %; Eosinophils # (auto) 0.17 K/uL (0.00-0.50); Eosinophils % (auto) 2.4 %; Hematocrit (blood only) 27.5 % (37.0-47.0); Hemoglobin 8.7 g/dl (12.0-16.0); Immature Granulocytes # (auto) 0.02 K/uL (0.01-0.20); Immature Granulocytes % (auto) 0.3 %; Mean Corpuscular Hemoglobin 24.4 pg (25.0-34.0); Mean Corpuscular Hgb Conc 31.6 g/dL (32.0-36.0); Mean Corpuscular Volume 77.2 fL (80.0-100.0); Mean Platelet Volume 10.1 fL (9.4-12.4); Monocytes # (auto) 0.59 K/uL (0.11-0.59); Monocytes % (auto) 8.3 %; Neutrophils # (auto) 5.06 K/uL (1.40-6.50); Neutrophils % (auto) 71.6 %; Platelet Count 193 K/uL (130-400); RDW Coefficient of Variation 18.8 % (11.5-14.5); RDW Standard Deviation 52.7 fL (36.4-46.3); Red Blood Count 3.56 M/uL (4.20-5.40); White Blood Count 7.07 K/ul (4.8-10.8)
--- NOTE | 2023-12-27 07:07 | XRay Report ---
XR chest 1V portable CLINICAL HISTORY: Fall. COMPARISON STUDY: Chest radiograph November 19, 2023. Chest CT November 20, 2023. FINDINGS: Lung volumes are normal. Lungs are clear. There is no pneumothorax or pleural effusion. Car diac size is normal. Mediastinal contours are normal. There is no evidence for pulmonary edema. An [employer] device projects over the chest. There are cholecystectomy clips. IMPRESSION: No acute cardiopulmonary findings. ACT 112: Negative or not required by law. Electronically signed by: Keith Scruggs M.D. 12/27/2023 7:06 AM
[2023-12-27 07:16] LABS: BUN Creatinine Ratio 25.7 (10-20); Calcium 8.9 mg/dl (8.6-10.3); Creatinine Clr Calc Pharmacy 42.5 ml/min; Est GFR (African American) 60.9 ml/min; Est GFR (Non-African American) 52.5 ml/min; Magnesium 1.7 mg/dl (1.7-2.4)
[2023-12-27 07:27] LABS: INR 1.1 (0.9-1.1); Prothrombin Time 11.7 Seconds (9.0-12.0)
[2023-12-27] MEDS: CETIRIZINE HCL 10 MG TABLET PO SCH (08:34)
[2023-12-27] MEDS: ESCITALOPRAM OXALATE 20 MG TAB PO SCH (08:35)
[2023-12-27] MEDS: ATORVASTATIN 10 MG TAB PO SCH (08:35)
[2023-12-27] MEDS: DONEPEZIL HCL 5 MG TAB PO SCH (08:35)
[2023-12-27] MEDS: amLODIPine BESYLATE 5 MG TAB PO SCH (08:35)
[2023-12-27] MEDS: FLUTICASONE PROPIONATE NA SPR 16 GM BTL SCH (08:35)
[2023-12-27] MEDS: CIPROFLOXACIN / D5W 400 MG/200 ML BAG IV SCH (08:36)
[2023-12-27] MEDS: DOCUSATE SODIUM 100 MG CAP PO SCH (08:58)
--- NOTE | 2023-12-27 08:58 | Electrocardiogram Report ---
Test Reason : Blood Pressure : */* mmHG Vent. Rate : 85 BPM Atrial Rate : 85 BPM P-R Int : 208 ms QRS Dur : 88 ms QT Int : 386 ms P-R-T Axes : 42 -19 67 degrees QTcB Int : 459 ms Sinus rhythm with Premature atrial complexes 1st degree AV block Otherwise normal ECG When compared with ECG of 26-Dec-2023 18:20, (unconfirmed) No significant change was found Confirmed by David Sr ([id number] on 12/27/2023 8:58:41 AM Referred By: REFERRED SELF Confirmed By: David Sr
[2023-12-27] MEDS: guaiFENesin/CODEINE 100MG/10MG 5ML UDC PO PRN (12:58)
[2023-12-27] MEDS ORDERED: IPRATROPIUM BROMIDE NASAL SPRAY 0.06% 15ML NAE PRN (14:32)
--- NOTE | 2023-12-27 15:03 | Hospitalist Progress Note ---
Date of Service December 27, 2023 Assessment & Plan (1) Fall: Plan: Admit to med telemetry Currently stable nontoxic-appearing Presented to the ED via EMS after sustaining an assisted fall to the ground while trying to step up into their garage Patient's is unsure if the patient lost consciousness while try to step up to the rash as she reportedly went limp momentarily, he was able to help sisterly ground but she did land on her knees and outstretched hands Falls likely multifactorial including patient's baseline amatory dysfunction and not using her walker, UTI, dehydration, cannot rule out syncope at this time Patient appears to have a sprained right ankle as well as ice without acute trauma on exam Will obtain chest x-ray and admission for further evaluation Patient will need to be evaluated by PT/OT to determine if she is safe enough to be discharged home with her baseline ambulatory function PT/OT consulted and placed Fall/aspiration precautions Bilateral SCDs for DVT prophylaxis Heart healthy/DM type II diet AM CBC, CMP, mag, PT/INR (2) Ankle pain, right: Plan: Patient's right ankle is currently swollen mildly bruised on the lateral aspect since her fall X-ray of the right ankle is read as negative for acute fracture or dislocation Likely sustained to sprain ankle during fall Will order a splint for support As needed Tylenol for pain Elevate right lower extremity every shift PT/OT consults - obtain podiatry consult (3) UTI (urinary tract infection): Plan: Patient's UA appears consistent with UTI Will start every 12 hours ciprofloxacin with her previous history of allergy to cefazolin Follow urine cultures (4) Dehydration: Plan: Patient appears dehydrated on exam Will give 1 L LR overnight for hydration Hold home p.o. plan for now Monitor a.m. renal function and volume status (5) Anemia: Plan: Has a known history of iron deficiency anemia, is a Ep[employer] so will not receive blood products Hemoglobin is currently stable today [facility] for possible iron transfusion Consider iron transfusion before discharge Monitor daily CBC (6) Type 2 diabetes mellitus: Plan: Monitor BSG ACHS, goal is [id number] Hold metformin for now Start CF 15 CR 15 ACHS Adjust regimen as needed (7) Hypertension: Plan: Currently stable Continue amlodipine Plan The patient was discussed with Dr. Pasquariello at the time of the admission Admission and Anticipated Discharge Date Admission Date: December 26, 2023 Subjective reports cough, right foot swelling Review of Systems Review of Systems: All systems reviewed & are unremarkable except as noted in Subjective Physical Exam Physical Exam: head atraumatic neck supple chest CTA b/l abdomen soft, nt, nd, bs present extremities right ankle swelling, tender neuro AAO times 3 Results & Data Results & Data Vital Signs (Past 12 Hours) Vital Signs Temp Pulse Pulse Resp BP Pulse Ox O2 Del Method 12/27/23 14:13 63 12/27/23 13:15 79 18 97 Room Air 12/27/23 11:39 36.6 C 71 16 138/71 96 Room Air 12/27/23 07:42 36.6 C 90 18 130/60 94 Room Air 12/27/23 07:40 Room Air 12/27/23 07:08 79 12/27/23 07:03 78 17 98 Room Air 12/27/23 03:57 96 H 161/68 H PG Care Time/CCT Total # of Minutes Spent Total Time Spent with Patient: Total time spent is greater than 50% in coordination of care (as documented) at patient's floor/unit and/or counseling patient: Coding Level of Care Code 83591 SUB INP/OBS CARE 2/35MIN Diagnoses Fall W19.XXXA Ankle pain, right M25.571 UTI (urinary tract infection) N39.0 Dehydration E86.0 Anemia D64.9 Anemia type: unspecified type Type 2 diabetes mellitus E11.9 Primary hypertension I10 Hypertension type: primary hypertension (5) Anemia Anemia type: unspecified type Qualified Code(s): D64.9 - Anemia, unspecified (7) Hypertension Hypertension type: primary hypertension Qualified Code(s): I10 - Essential (primary) hypertension
--- NOTE | 2023-12-27 15:35 | Electrocardiogram Report ---
Test Reason : Blood Pressure : */* mmHG Vent. Rate : 72 BPM Atrial Rate : 72 BPM P-R Int : 152 ms QRS Dur : 84 ms QT Int : 398 ms P-R-T Axes : * -18 19 degrees QTcB Int : 435 ms Sinus rhythm with Premature atrial complexes Low voltage QRS Borderline ECG When compared with ECG of 19-Nov-2023 19:00, No significant change was found Confirmed by David Sr ([id number] on 12/27/2023 3:35:39 PM Referred By: REFERRED SELF Confirmed By: David Sr
[2023-12-27] MEDS: ACETAMINOPHEN 325 MG TAB PO PRN (20:32)
[2023-12-28 06:52] LABS: Basophils # (auto) 0.03 K/uL (0.00-0.20); Basophils % (auto) 0.5 %; Eosinophils # (auto) 0.25 K/uL (0.00-0.50); Eosinophils % (auto) 3.8 %; Hematocrit (blood only) 28.7 % (37.0-47.0); Hemoglobin 8.8 g/dl (12.0-16.0); Immature Granulocytes # (auto) 0.02 K/uL (0.01-0.20); Immature Granulocytes % (auto) 0.3 %; Lymphocytes # (auto) 1.66 K/uL (1.20-3.40); Lymphocytes % (auto) 25.5 %; Mean Corpuscular Hemoglobin 24.4 pg (25.0-34.0); Mean Corpuscular Hgb Conc 30.7 g/dL (32.0-36.0); Mean Corpuscular Volume 79.7 fL (80.0-100.0); Mean Platelet Volume 9.9 fL (9.4-12.4); Monocytes # (auto) 0.65 K/uL (0.11-0.59); Neutrophils # (auto) 3.91 K/uL (1.40-6.50); Neutrophils % (auto) 59.9 %; Platelet Count 200 K/uL (130-400); RDW Coefficient of Variation 19.2 % (11.5-14.5); RDW Standard Deviation 55.8 fL (36.4-46.3); White Blood Count 6.52 K/ul (4.8-10.8)
[2023-12-28 07:22] LABS: INR 1.1 (0.9-1.1); Prothrombin Time 11.6 Seconds (9.0-12.0)
[2023-12-28 07:24] LABS: BUN Creatinine Ratio 17.1 (10-20); Creatinine Clr Calc Pharmacy 41.5 ml/min; Est GFR (African American) 58.1 ml/min; Est GFR (Non-African American) 50.1 ml/min; Magnesium 1.8 mg/dl (1.7-2.4); Potassium 4.4 mmol/L (3.5-5.1)
[2023-12-28] MEDS ORDERED: ALBUTEROL HFA 8 GM INHALER INH PRN (09:05)
[2023-12-28] MEDS: IRON SUCROSE 200 MG in 0.9 % SODIUM CHLORIDE 100 ML IV ONE (11:12)
--- NOTE | 2023-12-28 12:11 | Podiatry Consultation ---
Date of Consultation December 28, 2023 Assessment & Plan (1) Fall: Encounter type: initial encounter Qualified Code(s): W19.XXXA - Unspecified fall, initial encounter (2) Ankle pain, right: Chronicity: acute Qualified Code(s): M25.571 - Pain in right ankle and joints of right foot Plan Patient was examined and evaluated. We discussed at length etiology and treatment of her right ankle pain. The radiographs were read as normal and potentially still are, though the small cortical irregularity is concerning for nondisplaced fracture. Given her age and history of falls, it would be worth ruling out a nondisplaced fracture at this time. A CT scan was ordered for this. This could potentially change her weightbearing status after discharge. We will wait for these results before determining any plan. She still is unlikely to require any surgical intervention. This plan was discussed with the patient and her . If everything comes back normal, we will be able to discharge him home with minimal intervention. They understand and are amenable to this. Thank you for the consult, we are happy to help with any foot and ankle concerns. History of Present Illness Reason for Consultation: Right ankle pain Attending Physician: Carlota An MD History of Present Illness Patient presents to the hospital after sustaining a fall several days ago at home. Her states she is developing worsening Alzheimer's and has had some balance issues. She did suffer this fall and developed ankle pain afterwards. With the pain and swelling, they thought she would be best worked up here. She has had plain film imaging performed and advanced imaging of other body parts. Overall, she states she is doing well without any increase in pain though she does have the continued swelling noted. Further, she denies any new or worsening signs or symptoms of infection. And other than the Alzheimer's changes, denies any recent medical history change. Allergies Allergy/AdvReac Type Severity Reaction Status Date / Time bee venom protein (honey bee) Allergy Severe SWELLS UP Verified 12/26/23 19:38 cefazolin Allergy Severe SHORTNESS Verified 12/26/23 19:38 OF BREATH adhesive Allergy Intermediate HIVES WITH Verified 12/26/23 19:38 TAPE azithromycin Allergy Unknown CAN'T Verified 12/26/23 19:38 REMEMBER candesartan AdvReac Intermediate cough Verified 12/26/23 19:38 enalapril AdvReac Intermediate cough Verified 12/26/23 19:38 lisinopril AdvReac Intermediate COUGH Verified 12/26/23 19:38 morphine AdvReac Intermediate ABNORMAL Verified 12/26/23 19:38 DREAMS/PASSED OUT nitroglycerin AdvReac Intermediate GI SYMPTOMS Verified 12/26/23 19:38 Home Medications Medication Instructions Recorded Confirmed Type multivitamin 1 tab PO QAM 12/17/18 12/26/23 History cyanocobalamin (vitamin B-12) 500 1,000 mcg (2 x 500 mcg) PO QAM #30 03/26/22 12/26/23 Rx mcg tablet tabs donepezil 5 mg tablet 5 mg PO DAILY #90 tabs 09/22/22 12/26/23 Rx magnesium oxide 400 mg (241.3 mg 400 mg PO TID #90 tabs 12/30/22 12/26/23 Rx magnesium) tablet escitalopram oxalate 20 mg tablet 20 mg PO QAM #90 tabs 05/24/23 12/26/23 Rx amlodipine 5 mg tablet 5 mg PO DAILY #30 tabs 06/01/23 12/26/23 Rx docusate sodium 100 mg capsule 100 mg PO BID #20 caps 06/18/23 12/26/23 Rx cetirizine 10 mg tablet (Zyrtec) 10 mg PO DAILY allergy symptoms 07/24/23 12/26/23 Rx #90 tabs ipratropium bromide 21 mcg (0.03 2 spray intranasal BID PRN chronic 07/24/23 12/26/23 Rx %) nasal spray cough #30 mL potassium chloride 10 mEq 10 meq PO DAILY #30 tabs 07/27/23 12/26/23 Rx tablet,extended release albuterol sulfate 90 mcg/actuation 2 inh inhalation Q6H cough #1 ea 09/12/23 12/26/23 Rx breath activated powder inhaler,sensor (Proair Digihaler) pantoprazole 40 mg tablet,delayed 40 mg PO BID #60 tabs 11/03/23 12/26/23 Rx release (Protonix) metformin 500 mg tablet 500 mg PO BID #60 tabs 11/22/23 12/26/23 Rx Synthroid 75 mcg tablet 75 mcg PO DAILY #30 tabs 11/24/23 12/26/23 Rx (levothyroxine) furosemide 20 mg tablet (Lasix) 20 mg PO DAILY #30 tabs 11/29/23 12/26/23 Rx atorvastatin 10 mg tablet 10 mg PO DAILY #100 tabs 12/02/23 12/26/23 Rx blood-glucose meter (OneTouch #1 ea 12/05/23 12/11/23 Rx Ultra2 Meter) blood sugar diagnostic (OneTouch #100 ea 12/11/23 12/11/23 Rx Verio test strips) fluticasone propionate 50 1 spray intranasal DAILY #16 grams 12/11/23 12/26/23 Rx mcg/actuation nasal spray,suspension (Flonase Allergy Relief) lancets 33 gauge #100 ea 12/11/23 12/11/23 Rx glycopyrrolate 1 mg tablet 1 mg PO BID #60 tabs 12/25/23 12/26/23 Rx (Robinul) Patient History Medical History Hyponatremia Acute kidney injury 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 Hyperlipidemia Vitamin D deficiency Falls frequently Syncope, vasovagal Seasonal allergies mild Implantable loop recorder present follows w/ Dr Milian last visit 02/2022 Acute upper GI bleed Nausea and vomiting after administration of anesthetic agent Surgical History History of esophagogastroduodenoscopy (EGD) Hx of colonoscopy Status post total hip replacement, 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) S/P total hysterectomy and bilateral salpingo-oophorectomy S/P tonsillectomy S/P cholecystectomy S/P appendectomy Family History Father Hypertension Myocardial infarction Diabetes Coronary heart disease Sister Coronary heart disease Mother Diabetes Myocardial infarction Coronary heart disease Hypertension Denies family history of Ovarian cancer Prostate cancer Breast cancer Colorectal cancer Social History Smoking Status: Never smoker Second Hand Exposure: No; Do You Dip or Chew Tobacco: No; Hx Alcohol Use: No Hx Substance Use: No Preferred Language: Yoruba Communication Ability: Effective Visual Impairment: Limited Hearing Ability: Normal 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 Beliefs That Will Affect Care: Pentecostalism Pentecostalism Beliefs: Jehovah Witness- No blood products marital status: Current Living Situation: Spouse current occupational status: retired Feels Safe at Home: Yes Safety Concerns: Feels Safe At This Time Childhood Exposure to Second-Hand Smoke: No Diet: regular Diet Comment: regular caffeine: No during the past year weight has: remained stable Dental Care, Regularly: Yes Physical Activity Frequency: 1-2 Times per Week Seatbelt Use: always Sunscreen Use: Yes Assistive Devices: Walker Review of Systems Review of Systems: All systems reviewed & are unremarkable except as noted in HPI & below Constitutional: no fever, no chills and no fatigue Eyes: no problem reported Ear, Nose, Mouth, Throat: no problem reported Respiratory: no problem reported Cardiovascular: + edema; no problem reported Gastrointestinal: no nausea, no vomiting and no problem reported Genitourinary: no problem reported Musculoskeletal: no problem reported Integumentary: no skin ulcer, no wounds and no erythema Neurologic: + paresthesia; no generalized weakness, no loss of sensation and no numbness Psychiatric: no problem reported Physical Exam Physical Exam: Right lower extremity focused exam: Pinpoint pain is noted on palpation of the lateral aspect of the fibula. There is no pain on range of motion of the ankle. There is extensive edema to the lower extremity overall. No open lesions noted. Minimal ecchymosis is appreciated. No ascending cellulitis noted. Pulses are not palpable. No crepitus on range of motion is noted. No angular deformities are appreciated and no shortening of the fibula is noted clinically. Radiographs reveal no displacement of any fracture though are suggestive of a nondisplaced fibular fracture with a cortical irregularity noted laterally on the AP and oblique views and a potential posterior spike noted on the lateral imaging. Constitutional: WD/WN, vitals as above Eyes: PERRL, conjunctivae normal, anicteric sclerae ENMT: external ear and nose normal, oropharynx normal Neck: trachea midline, no thyromegaly normal visual inspection Respiratory: normal respiratory effort; no respiratory distress Cardiovascular: Rate/Rhythm: regular rate and regular rhythm Chest (Breasts): Chest: normal inspection of chest Gastrointestinal (Abdomen): Inspection/Auscultation: abdomen normal to inspection Percussion/Palpation: + abdomen tender and abdomen soft Musculoskeletal: no cyanosis or clubbing, extremities motor strength 5/5 Head/Neck/Chest: normocephalic and head atraumatic Extremities: extremities normal to inspection Ankle: + ecchymosis and + limited ROM of ankle; no deformity Neurologic: awake; no focal motor deficits Psychiatric: A+Ox3, euthymic affect Results & Data Vital Signs (Past 12 Hours) Vital Signs Temp Pulse Pulse Resp BP Pulse Ox O2 Del Method 12/28/23 11:32 36.6 C 63 17 130/65 95 Room Air 12/28/23 08:19 36.3 C L 76 17 121/66 96 Room Air 12/28/23 07:35 67 16 97 Room Air 12/28/23 07:32 Room Air 12/28/23 05:47 65 12/28/23 03:43 36.7 C 71 18 149/66 H 94 Room Air 12/28/23 01:39 67 16 98 Room Air
--- NOTE | 2023-12-28 12:20 | Hospitalist Progress Note ---
Date of Service December 28, 2023 Assessment & Plan (1) Fall: Plan: Admit to med telemetry Currently stable nontoxic-appearing Presented to the ED via EMS after sustaining an assisted fall to the ground while trying to step up into their garage Patient's is unsure if the patient lost consciousness while try to step up to the rash as she reportedly went limp momentarily, he was able to help sisterly ground but she did land on her knees and outstretched hands Falls likely multifactorial including patient's baseline amatory dysfunction and not using her walker, UTI, dehydration, cannot rule out syncope at this time Patient appears to have a sprained right ankle as well as ice without acute trauma on exam Will obtain chest x-ray and admission for further evaluation Patient will need to be evaluated by PT/OT to determine if she is safe enough to be discharged home with her baseline ambulatory function PT/OT consulted and placed Fall/aspiration precautions Bilateral SCDs for DVT prophylaxis Heart healthy/DM type II diet AM CBC, CMP, mag, PT/INR (2) Ankle pain, right: Plan: Patient's right ankle is currently swollen mildly bruised on the lateral aspect since her fall as per gynecological assistant fibula fx , no WB for 6 weeks Likely sustained to sprain ankle during fall Will order a splint for support As needed Tylenol for pain Elevate right lower extremity every shift needs rehab (3) UTI (urinary tract infection): Plan: Patient's UA appears consistent with UTI Will start every 12 hours ciprofloxacin with her previous history of allergy to cefazolin Follow urine cultures (4) Dehydration: Plan: Patient appears dehydrated on exam Will give 1 L LR overnight for hydration Hold home p.o. plan for now Monitor a.m. renal function and volume status (5) Anemia: Plan: Has a known history of iron deficiency anemia, is a Catholic so will not receive blood products Hemoglobin is currently stable today Patient [facility]23 for possible iron transfusion iv iron (6) Type 2 diabetes mellitus: Plan: Monitor BSG ACHS, goal is [id number] Hold metformin for now Start CF 15 CR 15 ACHS Adjust regimen as needed (7) Hypertension: Plan: Currently stable Continue amlodipine Plan The patient was discussed with Dr. Bell at the time of the admission Admission and Anticipated Discharge Date Admission Date: December 26, 2023 Supervising Physician Co-Signing Physician Notes Attending addendum: I have physically seen this patient, have supervised the YANIQUE's activities, and agree with the H&P unless as otherwise noted. Assessment and Plan: Status post fall- Patient was assisted to the ground after attempting to step up into natural history Family unsure as there was a loss of consciousness Contributing factors including not limited to: Hyponatremia, urinary tract infection, acute kidney injury, dehydration, progression of general debilitation, neuropathy Consult PT/OT UTI/dehydration- Follow urine culture sensitivity Cipro 400 mg IV every 12 hours Maintenance IV fluids as noted, LR at 80 mL/h x 1 L Right ankle pain- X-ray negative for acute fracture Splint ordered for support Acetaminophen 650 mg by mouth every 6 hours as needed for mild pain or fever Consult PT/OT Diabetes mellitus- Holding metformin Placed on Accu-Cheks with NovoLog SSI Check hemoglobin A1c Subjective reports cough, right foot swelling Review of Systems Review of Systems: All systems reviewed & are unremarkable except as noted in Subjective Physical Exam Physical Exam: head atraumatic neck supple chest CTA b/l abdomen soft, nt, nd, bs present extremities right ankle swelling, tender neuro AAO times 3 Results & Data Results & Data Vital Signs (Past 12 Hours) Vital Signs Temp Pulse Pulse Resp BP Pulse Ox O2 Del Method 12/28/23 11:32 36.6 C 63 17 130/65 95 Room Air 12/28/23 08:19 36.3 C L 76 17 121/66 96 Room Air 12/28/23 07:35 67 16 97 Room Air 12/28/23 07:32 Room Air 12/28/23 05:47 65 12/28/23 03:43 36.7 C 71 18 149/66 H 94 Room Air 12/28/23 01:39 67 16 98 Room Air Laboratory Results Abnormal lab results 12/27/23 12/27/23 12/28/23 Range/Units 17:08 20:14 06:30 RBC 3.60 L (4.20-5.40) M/uL Hgb 8.8 L (12.0-16.0) g/dl Hct 28.7 L (37.0-47.0) % MCV 79.7 L (80.0-100.0) fL MCH 24.4 L (25.0-34.0) pg MCHC 30.7 L (32.0-36.0) g/dL RDW Std Deviation 55.8 H (36.4-46.3) fL RDW Coeff of [place] 19.2 H (11.5-14.5) % [place] # (Auto) 0.65 H (0.11-0.59) K/uL Sodium 131 L (136-145) mmol/L Chloride 97 L (98-107) mmol/L Glucose 141 H (70-99(Fasting)) mg/dl POC Glucose 201 H 206 H (70-99) mg/dl 12/28/23 Range/Units 08:12 RBC (4.20-5.40) M/uL Hgb (12.0-16.0) g/dl Hct (37.0-47.0) % MCV (80.0-100.0) fL MCH (25.0-34.0) pg MCHC (32.0-36.0) g/dL RDW Std Deviation (36.4-46.3) fL RDW Coeff of [place] (11.5-14.5) % [place] # (Auto) (0.11-0.59) K/uL Sodium (136-145) mmol/L Chloride (98-107) mmol/L Glucose (70-99(Fasting)) mg/dl POC Glucose 198 H (70-99) mg/dl PG Care Time/CCT Total # of Minutes Spent Total Time Spent with Patient: Total time spent is greater than 50% in coordination of care (as documented) at patient's floor/unit and/or counseling patient: Coding Level of Care Code 78636 SUB INP/OBS CARE 2/35MIN Diagnoses Fall W19.XXXA Ankle pain, right M25.571 UTI (urinary tract infection) N39.0 Dehydration E86.0 Anemia D64.9 Anemia type: unspecified type Type 2 diabetes mellitus E11.9 Primary hypertension I10 Hypertension type: primary hypertension (5) Anemia Anemia type: unspecified type Qualified Code(s): D64.9 - Anemia, unspecified (7) Hypertension Hypertension type: primary hypertension Qualified Code(s): I10 - Essential (primary) hypertension
--- NOTE | 2023-12-28 15:38 | CT Scan Report ---
CT ankle RT wo con CLINICAL HISTORY: r/o nondisplaced fibular fracture TECHNIQUE: Multidetector row helical CT of the right ankle was performed without intravenous contrast . Coronal and sagittal reformations were obtained. Automated dose lowering techniques and/or adjustme nt according to patient size were utilized for this examination. CT DOSE: 588.05 mGy.cm Comparison: Comparison is made to ankle radiograph 12/26/2023 FINDINGS: Fractures of the lateral, medial, and posterior malleolus. No widening of the syndesmosis seen at thi s time. No joint effusion is seen. Soft tissue swelling is seen. IMPRESSION: Trimalleolar fractures noted. ACT 112: Negative or not required by law. Electronically signed by: Shelton Goins M.D. 12/28/2023 3:36 PM
[2023-12-28] MEDS: CIPROFLOXACIN 250 MG TAB PO SCH (18:30)
[2023-12-29 07:09] LABS: Basophils # (auto) 0.02 K/uL (0.00-0.20); Basophils % (auto) 0.5 %; Eosinophils # (auto) 0.25 K/uL (0.00-0.50); Eosinophils % (auto) 5.7 %; Hematocrit (blood only) 26.7 % (37.0-47.0); Hemoglobin 8.2 g/dl (12.0-16.0); Immature Granulocytes # (auto) 0.02 K/uL (0.01-0.20); Immature Granulocytes % (auto) 0.5 %; Lymphocytes # (auto) 0.97 K/uL (1.20-3.40); Lymphocytes % (auto) 22.3 %; Mean Corpuscular Hemoglobin 24.2 pg (25.0-34.0); Mean Corpuscular Hgb Conc 30.7 g/dL (32.0-36.0); Mean Corpuscular Volume 78.8 fL (80.0-100.0); Mean Platelet Volume 9.7 fL (9.4-12.4); Monocytes # (auto) 0.45 K/uL (0.11-0.59); Monocytes % (auto) 10.3 %; Neutrophils # (auto) 2.64 K/uL (1.40-6.50); Neutrophils % (auto) 60.7 %; Platelet Count 181 K/uL (130-400); RDW Coefficient of Variation 19.5 % (11.5-14.5); RDW Standard Deviation 55.1 fL (36.4-46.3); Red Blood Count 3.39 M/uL (4.20-5.40); White Blood Count 4.35 K/ul (4.8-10.8)
[2023-12-29 07:26] LABS: BUN Creatinine Ratio 14.6 (10-20); Calcium 8.5 mg/dl (8.6-10.3); Creatinine Clr Calc Pharmacy 45.3 ml/min; Est GFR (African American) 64.7 ml/min; Est GFR (Non-African American) 55.9 ml/min; Magnesium 1.8 mg/dl (1.7-2.4); Potassium 4.2 mmol/L (3.5-5.1)
[2023-12-29 07:34] LABS: INR 1.1 (0.9-1.1); Prothrombin Time 11.7 Seconds (9.0-12.0)
--- NOTE | 2023-12-29 13:15 | Hospitalist Progress Note ---
Date of Service December 29, 2023 Assessment & Plan (1) Fibula fracture: Plan: CT leg is consistent with trimalleolar fx no surgery no weight bearing 6-8 weeks rehab pain control (2) Fall: Plan: Admit to med telemetry PT/OT consulted and placed Fall/aspiration precautions Bilateral SCDs for DVT prophylaxis Heart healthy/DM type II diet AM CBC, CMP, mag, PT/INR (3) Ankle pain, right: Plan: Patient's right ankle is currently swollen mildly bruised on the lateral aspect since her fall as per studio owner fibula fx , no WB for 6 weeks Likely sustained to sprain ankle during fall Will order a splint for support As needed Tylenol for pain Elevate right lower extremity every shift needs rehab (4) UTI (urinary tract infection): Plan: Patient's UA appears consistent with UTI Will start every 12 hours ciprofloxacin with her previous history of allergy to cefazolin Follow urine cultures (5) Dehydration: Plan: Patient appears dehydrated on exam Will give 1 L LR overnight for hydration Hold home p.o. plan for now Monitor a.m. renal function and volume status (6) Anemia: Plan: Has a known history of iron deficiency anemia, is a Alevism so will not receive blood products Hemoglobin is currently stable today Patient [facility]23 for possible iron transfusion iv iron monitor CBC (7) Type 2 diabetes mellitus: Plan: Monitor BSG ACHS, goal is [id number] Hold metformin for now Start CF 15 CR 15 ACHS Adjust regimen as needed (8) Hypertension: Plan: Currently stable Continue amlodipine Plan The patient was discussed with Dr. Bell at the time of the admission Admission and Anticipated Discharge Date Admission Date: December 28, 2023 Subjective reports feeling better , less cough, no fever or chills Review of Systems Review of Systems: All systems reviewed & are unremarkable except as noted in Subjective Physical Exam Physical Exam: head atraumatic neck supple chest CTA b/l abdomen soft, nt, nd, bs present extremities right ankle swelling, tender neuro AAO times 3 Results & Data Results & Data Vital Signs (Past 12 Hours) Vital Signs Temp Pulse Pulse Resp BP Pulse Ox O2 Del Method 12/29/23 08:49 36.7 C 61 20 136/62 95 Room Air 12/29/23 06:02 60 PG Care Time/CCT Total # of Minutes Spent Total Time Spent with Patient: Total time spent is greater than 50% in coordination of care (as documented) at patient's floor/unit and/or counseling patient: Coding Level of Care Code 89041 SUB INP/OBS CARE MIN Diagnoses Fibula fracture S82.409A Fall W19.XXXA Acute right ankle pain M25.571 Chronicity: acute UTI (urinary tract infection) N39.0 Dehydration E86.0 Anemia D64.9 Anemia type: unspecified type Type 2 diabetes mellitus E11.9 Primary hypertension I10 Hypertension type: primary hypertension (3) Ankle pain, right Chronicity: acute Qualified Code(s): M25.571 - Pain in right ankle and joints of right foot (6) Anemia Anemia type: unspecified type Qualified Code(s): D64.9 - Anemia, unspecified (8) Hypertension Hypertension type: primary hypertension Qualified Code(s): I10 - Essential (primary) hypertension
[2023-12-29] MEDS: HEPARIN SOD 5,000 UNIT/0.5 ML VIAL SQ SCH (14:29)
[2023-12-29] MEDS: metFORMIN HCL 500 MG TAB PO SCH (16:24)
--- NOTE | 2023-12-30 13:41 | Hospitalist Progress Note ---
Date of Service December 30, 2023 Assessment & Plan (1) Fibula fracture: Plan: CT leg is consistent with trimalleolar fx on the right side no surgery no weight bearing 6-8 weeks rehab pain control (2) Fall: Plan: Admit to med telemetry PT/OT consulted and placed Fall/aspiration precautions Bilateral SCDs for DVT prophylaxis Heart healthy/DM type II diet AM CBC, CMP, mag, PT/INR (3) Ankle pain, right: Plan: Patient's right ankle is currently swollen mildly bruised on the lateral aspect since her fall as per facility rehab director fibula fx , no WB for 6 weeks Likely sustained to sprain ankle during fall Will order a splint for support As needed Tylenol for pain Elevate right lower extremity every shift needs rehab (4) UTI (urinary tract infection): Plan: Patient's UA appears consistent with UTI Will start every 12 hours ciprofloxacin with her previous history of allergy to cefazolin Urine culture grew pansensitive E. coli. 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 Accompanied by her at the bedside. Review of Systems Review of Systems: All systems reviewed & are unremarkable except as noted in Subjective Physical Exam Physical Exam: General: Awake, conversant Heart: S1, S2/regular rate and rhythm, no murmur rubs or gallops Lungs: Clear to auscultation bilaterally. Normal effort Abdomen: Soft/nontender/nondistended. No hepatosplenomegaly Extremities: No clubbing/cyanosis. No edema of the left leg. Right ankle brace on Behavior: Appropriate, cooperative Results & Data Results & Data Vital Signs (Past 12 Hours) Vital Signs Temp Pulse Pulse Resp BP BP Pulse Ox 12/30/23 11:20 36.7 C 67 17 116/72 95 12/30/23 08:00 12/30/23 07:57 36.5 C 64 16 147/67 H 97 12/30/23 07:27 68 O2 Del Method 12/30/23 11:20 Room Air 12/30/23 08:00 Room Air 12/30/23 07:57 Room Air 12/30/23 07:27 Laboratory Results Abnormal lab results 12/29/23 12/29/23 12/30/23 Range/Units 17:04 20:26 08:06 POC Glucose 168 H 114 H 143 H (70-99) mg/dl 12/30/23 Range/Units 12:06 POC Glucose 155 H (70-99) mg/dl PG Care Time/CCT Total # of Minutes Spent Total Time Spent with Patient: Total time spent is greater than 50% in coordination of care (as documented) at patient's floor/unit and/or counseling patient: Coding Level of Care Code 08775 SUB INP/OBS CARE 235MIN Diagnoses Fibula fracture S82.409A Fall W19.XXXA Acute right ankle pain M25.571 Chronicity: acute UTI (urinary tract infection) N39.0 Dehydration E86.0 Anemia D64.9 Anemia type: unspecified type Type 2 diabetes mellitus E11.9 Primary hypertension I10 Hypertension type: primary hypertension (3) Ankle pain, right Chronicity: acute Qualified Code(s): M25.571 - Pain in right ankle and joints of right foot (6) Anemia Anemia type: unspecified type Qualified Code(s): D64.9 - Anemia, unspecified (8) Hypertension Hypertension type: primary hypertension Qualified Code(s): I10 - Essential (primary) hypertension
--- NOTE | 2023-12-31 13:20 | Hospitalist Progress Note ---
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 coli. Continue ciprofloxacin (5) Dehydration: Plan: Resolved (6) Anemia: Plan: Has a known history of iron deficiency anemia, is a [employer] so will not receive blood products Hemoglobin is currently stable Patient [facility]23 for possible iron transfusion iv iron (7) Type 2 diabetes mellitus: Plan: Monitor BSG ACHS, goal is [id number] Hold metformin for now Start CF 15 CR 15 ACHS Adjust regimen as needed (8) Hypertension: Plan: Currently stable Continue amlodipine Plan DNR/DNI DVT prophylaxis: Heparin 3 times daily Admission and Anticipated Discharge Date Admission Date: December 28, 2023 Subjective Patient has no new complaints. Denies chest pain or shortness of breath. Awaiting placement. Review of Systems Review of Systems: All systems reviewed & are unremarkable except as noted in Subjective Physical Exam Physical Exam: General: Awake, conversant Heart: S1, S2/regular rate and rhythm, no murmur rubs or gallops Lungs: Clear to auscultation bilaterally. Normal effort Abdomen: Soft/nontender/nondistended. No hepatosplenomegaly Extremities: No clubbing/cyanosis. No edema of the left leg. Right ankle brace on Behavior: Appropriate, cooperative Results & Data Results & Data Vital Signs (Past 12 Hours) Vital Signs Temp Pulse Resp BP Pulse Ox O2 Del Method 12/31/23 08:02 36.5 C 62 16 167/66 H 96 Room Air 08/11/24 07:55 Room Air PG Care Time/CCT Total # of Minutes Spent Total Time Spent with Patient: Total time spent is greater than 50% in coordination of care (as documented) at patient's floor/unit and/or counseling patient: Coding Level of Care Code 60443 SUB INP/OBS CARE 2/35MIN Diagnoses Fibula fracture S82.409A Fall W19.XXXA Acute right ankle pain M25.571 Chronicity: acute UTI (urinary tract infection) N39.0 Dehydration E86.0 Anemia D64.9 Anemia type: unspecified type Type 2 diabetes mellitus E11.9 Primary hypertension I10 Hypertension type: primary hypertension (3) Ankle pain, right Chronicity: acute Qualified Code(s): M25.571 - Pain in right ankle and joints of right foot (6) Anemia Anemia type: unspecified type Qualified Code(s): D64.9 - Anemia, unspecified (8) Hypertension Hypertension type: primary hypertension Qualified Code(s): I10 - Essential (primary) hypertension
[2024-01-01] MEDS: ONDANSETRON INJ 2 MG/ML 2 ML VIAL IV PRN (10:14)
--- NOTE | 2024-01-01 15:45 | Hospitalist Progress Note ---
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 coli. Continue ciprofloxacin (5) Dehydration: Plan: Resolved (6) Anemia: Plan: Has a known history of iron deficiency anemia, is a Denominational so will not receive blood products Hemoglobin is currently stable Patient [facility]23 for possible iron transfusion iv iron (7) Type 2 diabetes mellitus: Plan: Monitor BSG ACHS, goal is [id number] Hold metformin for now Start CF 15 CR 15 ACHS Adjust regimen as needed (8) Hypertension: Plan: Currently stable Continue amlodipine Plan DNR/DNI DVT prophylaxis: Heparin 3 times daily Admission and Anticipated Discharge Date Admission Date: December 28, 2023 Subjective Patient feels well. Denies chest pain or shortness of breath. Review of Systems Review of Systems: All systems reviewed & are unremarkable except as noted in Subjective Physical Exam 2 Physical Exam: General: Awake, conversant Heart: S1, S2/regular rate and rhythm, no murmur rubs or gallops Lungs: Clear to auscultation bilaterally. Normal effort Abdomen: Soft/nontender/nondistended. No hepatosplenomegaly Extremities: No clubbing/cyanosis. No edema of the left leg. Right ankle brace on Behavior: Appropriate, cooperative Results & Data Results & Data Vital Signs (Past 12 Hours) Vital Signs Temp Pulse Resp BP Pulse Ox O2 Del Method 01/01/24 11:51 36.0 C L 62 14 143/72 H 95 Room Air 01/01/24 10:45 36.8 C 70 15 142/72 H 95 Room Air PG Care Time/CCT Total # of Minutes Spent Total Time Spent with Patient: Total time spent is greater than 50% in coordination of care (as documented) at patient's floor/unit and/or counseling patient: Coding Level of Care Code 44412 SUB INP/OBS CARE 2/35MIN Diagnoses Fibula fracture S82.409A Fall W19.XXXA Acute right ankle pain M25.571 Chronicity: acute UTI (urinary tract infection) N39.0 Dehydration E86.0 Anemia D64.9 Anemia type: unspecified type Type 2 diabetes mellitus E11.9 Primary hypertension I10 Hypertension type: primary hypertension (3) Ankle pain, right Chronicity: acute Qualified Code(s): M25.571 - Pain in right ankle and joints of right foot (6) Anemia Anemia type: unspecified type Qualified Code(s): D64.9 - Anemia, unspecified (8) Hypertension Hypertension type: primary hypertension Qualified Code(s): I10 - Essential (primary) hypertension
--- NOTE | 2024-01-01 22:33 | Podiatry Progress Note ---
Date of Service January 01, 2024 Assessment & Plan (1) Fall: (2) Ankle pain, right: Plan Patient was examined and evaluated. - Pt doing well. Should remain NWB to the right lower extremity. - Can d/c to rehab whenever something is available. - If she does suffer any falls or reinjuries to dislocate the ankle, she would require ORIF of the ankle. - Will sign off for now with no new plans. Please reconsult if necessary. Thanks. Admission and Anticipated Discharge Date Admission Date: December 28, 2023 Subjective Pt seen at bedside. No new complaints. Doing well with transfers with PT. Has some new bruising to the outside of the foot but no new injuries or trauma. Review of Systems Constitutional: no fever, no chills and no fatigue Eyes: no problem reported Ear, Nose, Mouth, Throat: no problem reported Respiratory: no problem reported Cardiovascular: + edema; no problem reported Gastrointestinal: no nausea, no vomiting and no problem reported Genitourinary: no problem reported Musculoskeletal: no problem reported Integumentary: no skin ulcer, no wounds and no erythema Neurologic: + paresthesia; no generalized weakness, no loss of sensation and no numbness Psychiatric: no problem reported Physical Exam Physical Exam: Right lower extremity focused exam: Pinpoint pain is noted on palpation of the lateral aspect of the fibula. There is no pain on range of motion of the ankle. There is extensive edema to the lower extremity overall. No open lesions noted. Minimal ecchymosis is appreciated. No ascending cellulitis noted. Pulses are not palpable. No crepitus on range of motion is noted. No angular deformities are appreciated and no shortening of the fibula is noted clinically. Radiographs reveal no displacement of any fracture though are suggestive of a nondisplaced fibular fracture with a cortical irregularity noted laterally on the AP and oblique views and a potential posterior spike noted on the lateral imaging. Constitutional: WD/WN, vitals as above Eyes: PERRL, conjunctivae normal, anicteric sclerae ENMT: external ear and nose normal, oropharynx normal Neck: trachea midline, no thyromegaly normal visual inspection Respiratory: normal respiratory effort; no respiratory distress Cardiovascular: Rate/Rhythm: regular rate and regular rhythm Chest (Breasts): Chest: normal inspection of chest Gastrointestinal (Abdomen): Inspection/Auscultation: abdomen normal to inspection Percussion/Palpation: + abdomen tender and abdomen soft Musculoskeletal: no cyanosis or clubbing, extremities motor strength 5/5 Head/Neck/Chest: normocephalic and head atraumatic Extremities: extremities normal to inspection Ankle: + ecchymosis and + limited ROM of ankle; no deformity Neurologic: awake; no focal motor deficits Psychiatric: A+Ox3, euthymic affect Results & Data Results & Data Vital Signs (Past 12 Hours) Vital Signs Temp Pulse Pulse Resp BP BP Pulse Ox 01/01/24 20:16 36.8 C 64 16 155/65 H 97 01/01/24 16:18 01/01/24 15:49 36.7 C 76 18 137/68 96 01/01/24 11:51 36.0 C L 62 14 143/72 H 95 01/01/24 10:45 36.8 C 70 15 142/72 H 95 O2 Del Method 01/01/24 20:16 Room Air 01/01/24 16:18 Room Air 01/01/24 15:49 Room Air 01/01/24 11:51 Room Air 01/01/24 10:45 Room Air (1) Fall Encounter type: initial encounter Qualified Code(s): W19.XXXA - Unspecified fall, initial encounter (2) Ankle pain, right Chronicity: acute Qualified Code(s): M25.571 - Pain in right ankle and joints of right foot
--- NOTE | 2024-01-01 22:37 | Podiatry Progress Note ---
Date of Service December 29, 2023 - Late entry, note lost in EMR Assessment & Plan (1) Fall: (2) Ankle pain, right: Plan Patient was examined and evaluated. - CT Scan revealing Trimalleolar fracture is not ideal. Ankle is unstable until it heals around 8 weeks post-injury. - Ideally would benefit from surgical ORIF, though given age and mental status, this is likely best avoided. - Should remain NWB to the right lower extremity, but with 88 year old at home, likely needs inpatient rehab for strengthening and care. - Can d/c to rehab whenever something is available. - If she does suffer any falls or reinjuries to dislocate the ankle, she would require ORIF of the ankle. Admission and Anticipated Discharge Date Admission Date: December 28, 2023 Subjective Pt seen at bedside. No new complaints. Are aware with CT results. Denies any new falls. Has remained NWB since CT. Review of Systems Constitutional: no fever, no chills and no fatigue Eyes: no problem reported Ear, Nose, Mouth, Throat: no problem reported Respiratory: no problem reported Cardiovascular: + edema; no problem reported Gastrointestinal: no nausea, no vomiting and no problem reported Genitourinary: no problem reported Musculoskeletal: no problem reported Integumentary: no skin ulcer, no wounds and no erythema Neurologic: + paresthesia; no generalized weakness, no loss of sensation and no numbness Psychiatric: no problem reported Physical Exam Physical Exam: Right lower extremity focused exam: Pinpoint pain is noted on palpation of the lateral aspect of the fibula. There is no pain on range of motion of the ankle. There is extensive edema to the lower extremity overall. No open lesions noted. Minimal ecchymosis is appreciated. No ascending cellulitis noted. Pulses are not palpable. No crepitus on range of motion is noted. No angular deformities are appreciated and no shortening of the fibula is noted clinically. Radiographs reveal no displacement of any fracture though are suggestive of a nondisplaced fibular fracture with a cortical irregularity noted laterally on the AP and oblique views and a potential posterior spike noted on the lateral imaging. CT Scan reveals non-displaced trimalleolar fracture. No obvious tibial fracture, but posterior malleolar fracture is suggestive of instability. Constitutional: WD/WN, vitals as above Eyes: PERRL, conjunctivae normal, anicteric sclerae ENMT: external ear and nose normal, oropharynx normal Neck: trachea midline, no thyromegaly normal visual inspection Respiratory: normal respiratory effort; no respiratory distress Cardiovascular: Rate/Rhythm: regular rate and regular rhythm Chest (Breasts): Chest: normal inspection of chest Gastrointestinal (Abdomen): Inspection/Auscultation: abdomen normal to inspection Percussion/Palpation: + abdomen tender and abdomen soft Musculoskeletal: no cyanosis or clubbing, extremities motor strength 5/5 Head/Neck/Chest: normocephalic and head atraumatic Extremities: extremities normal to inspection Ankle: + ecchymosis and + limited ROM of ankle; no deformity Neurologic: awake; no focal motor deficits Psychiatric: A+Ox3, euthymic affect Results & Data Results & Data Vital Signs (Past 12 Hours) Vital Signs Temp Pulse Pulse Resp BP BP Pulse Ox 01/01/24 20:16 36.8 C 64 16 155/65 H 97 01/01/24 19:36 01/01/24 16:18 01/01/24 15:49 36.7 C 76 18 137/68 96 01/01/24 11:51 36.0 C L 62 14 143/72 H 95 01/01/24 10:45 36.8 C 70 15 142/72 H 95 O2 Del Method 01/01/24 20:16 Room Air 01/01/24 19:36 Room Air 01/01/24 16:18 Room Air 01/01/24 15:49 Room Air 01/01/24 11:51 Room Air 01/01/24 10:45 Room Air (1) Fall Encounter type: initial encounter Qualified Code(s): W19.XXXA - Unspecified fall, initial encounter (2) Ankle pain, right Chronicity: acute Qualified Code(s): M25.571 - Pain in right ankle and joints of right foot
[2024-01-02] MEDS: IBUPROFEN 600 MG TAB PO ONE (05:51)
[2024-01-02 08:11] LABS: Hematocrit (blood only) 28.2 % (37.0-47.0); Hemoglobin 8.7 g/dl (12.0-16.0); Mean Corpuscular Hgb Conc 30.9 g/dL (32.0-36.0); Mean Platelet Volume 9.6 fL (9.4-12.4); Platelet Count 173 K/uL (130-400); RDW Standard Deviation 60.8 fL (36.4-46.3); Red Blood Count 3.48 M/uL (4.20-5.40); White Blood Count 5.32 K/ul (4.8-10.8)
[2024-01-02 08:25] LABS: BUN Creatinine Ratio 13.6 (10-20); Calcium 8.5 mg/dl (8.6-10.3); Creatinine Clr Calc Pharmacy 42.3 ml/min; Est GFR (African American) 59.5 ml/min; Est GFR (Non-African American) 51.3 ml/min; Potassium 4.5 mmol/L (3.5-5.1)
--- NOTE | 2024-01-02 15:38 | Hospitalist Progress Note ---
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 coli. Continue ciprofloxacin (5) Dehydration: Plan: Resolved (6) Anemia: Plan: Has a known history of iron deficiency anemia, is a [employer] so will not receive blood products Hemoglobin is currently stable Patient [facility] for possible iron transfusion iv iron (7) Type 2 diabetes mellitus: Plan: Monitor BSG ACHS, goal is [id number] Hold metformin for now Start CF 15 CR 15 ACHS Adjust regimen as needed (8) Hypertension: Plan: Currently stable Continue amlodipine Plan DNR/DNI DVT prophylaxis: Heparin 3 times daily Admission and Anticipated Discharge Date Admission Date: December 28, 2023 Subjective Patient feels well. Denies chest pain or shortness of breath Review of Systems Review of Systems: All systems reviewed & are unremarkable except as noted in Subjective Physical Exam Physical Exam: General: Awake, conversant Heart: S1, S2/regular rate and rhythm, no murmur rubs or gallops Lungs: Clear to auscultation bilaterally. Normal effort Abdomen: Soft/nontender/nondistended. No hepatosplenomegaly Extremities: No clubbing/cyanosis. No edema of the left leg. Right ankle brace on Behavior: Appropriate, cooperative Results & Data Results & Data Vital Signs (Past 12 Hours) Vital Signs Temp Pulse Resp BP Pulse Ox O2 Del Method 01/02/24 07:40 Room Air 01/02/24 07:19 36.8 C 64 16 119/67 97 Room Air PG Care Time/CCT Total # of Minutes Spent Total Time Spent with Patient: Total time spent is greater than 50% in coordination of care (as documented) at patient's floor/unit and/or counseling patient: Coding Level of Care Code 41835 SUB INP/OBS CARE 2/35MIN Diagnoses Fibula fracture S82.409A Fall W19.XXXA Acute right ankle pain M25.571 Chronicity: acute UTI (urinary tract infection) N39.0 Dehydration E86.0 Anemia D64.9 Anemia type: unspecified type Type 2 diabetes mellitus E11.9 Primary hypertension I10 Hypertension type: primary hypertension (3) Ankle pain, right Chronicity: acute Qualified Code(s): M25.571 - Pain in right ankle and joints of right foot (6) Anemia Anemia type: unspecified type Qualified Code(s): D64.9 - Anemia, unspecified (8) Hypertension Hypertension type: primary hypertension Qualified Code(s): I10 - Essential (primary) hypertension
[2024-01-02 18:00] LABS: Albumin Level 3.6 gm/dl (3.4-5.0); Bilirubin Direct 0.1 mg/dl (0-0.2); Bilirubin,Total 0.5 mg/dl (0.2-1.0); Total Protein 6.2 gm/dl (6.0-8.3)
[2024-01-02] MEDS: PANTOprazole 40 MG in SYRINGE 0 ML IV ONE (23:33)
[2024-01-02] MEDS: MAGNESIUM SULFATE / D5W 1 GM/100 ML BAG IV ONE (23:33)
--- NOTE | 2024-01-03 06:40 | Ultrasound Report ---
Exam(s): US ABDOMEN LIMITED EXAM: US Abdomen Limited, Right Upper Quadrant CLINICAL HISTORY: Reason for exam: RUQ pain, N/V. TECHNIQUE: Real-time ultrasound of the right upper quadrant with image documentation. COMPARISON: No relevant prior studies available. FINDINGS: Liver: There is diffuse heterogeneous echotexture demonstrated throughout the liver. Ill-defined target type region of echogenicity demonstrated a 1 cm in size anterior margin of the liver. Slightly heterogeneous configuration to the surface of the liver. No intrahepatic bile duct dilation. Gallbladder: The gallbladder was not visualized and has been removed by history. Common bile duct: Unremarkable as visualized. No stones. No dilation. Pancreas: Unremarkable as visualized. Right kidney: Limited assessment of the right kidney which appears unremarkable as visualized. No stones. No hydronephrosis. Free fluid: Trace amount of ascites surrounding the liver. IMPRESSION: Heterogeneous liver parenchyma with some irregularity to the surface suggesting a component of cirrhosis, there is indeterminate liver mass on this exam which could be further assessed with dedicated liver CT or liver MRI. Minor amount of ascites. Globally limited, postsurgical change. Electronically signed by: Almas Schwarz MD 01/03/24 06:39 AM
[2024-01-03] MEDS ORDERED: POLYETHYLENE (MIRALAX) 17 GM PACK PO PRN (10:26)
[2024-01-03] MEDS: MAGNESIUM HYDROXIDE SUSP 30 ML UDC PO ONE (11:37)
--- NOTE | 2024-01-03 15:23 | Hospitalist Progress Note ---
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 coli. Continue ciprofloxacin (5) Dehydration: Plan: Resolved (6) Anemia: Plan: Has a known history of iron deficiency anemia, is a [employer] so will not receive blood products Hemoglobin is currently stable Patient [facility]23 for possible iron transfusion iv iron (7) Type 2 diabetes mellitus: Plan: Monitor BSG ACHS, goal is [id number] Hold metformin for now Start CF 15 CR 15 ACHS Adjust regimen as needed (8) Hypertension: Plan: Currently stable Continue amlodipine Plan DNR/DNI DVT prophylaxis: Heparin 3 times daily Right upper quadrant pain was most likely related to constipation. Ultrasound right upper quadrant showed cirrhotic liver and a question of a liver mass. This can be pursued outpatient. Will treat constipation. Pain seems to have resolved. Admission and Anticipated Discharge Date Admission Date: December 28, 2023 Subjective Patient feels well. Denies chest pain or shortness of breath. She said that yesterday she had some pain in her belly, right side of her belly which seems to have resolved. She does not have any pain at this time. No nausea or vomiting. LFTs unremarkable. Ultrasound showed liver cirrhosis which is known to the patient. She has not had a bowel movement in 2 to 3 days. Review of Systems Review of Systems: All systems reviewed & are unremarkable except as noted in Subjective Physical Exam Physical Exam: General: Awake, conversant Heart: S1, S2/regular rate and rhythm, no murmur rubs or gallops Lungs: Clear to auscultation bilaterally. Normal effort Abdomen: Soft/nontender/nondistended. No hepatosplenomegaly Extremities: No clubbing/cyanosis. No edema of the left leg. Right ankle brace on Behavior: Appropriate, cooperative Results & Data Results & Data Vital Signs (Past 12 Hours) Vital Signs Temp Pulse Pulse Resp BP BP Pulse Ox 01/03/24 14:40 36.7 C 63 18 115/63 98 01/03/24 11:41 37 C 62 16 128/62 94 01/03/24 07:40 36.7 C 62 16 128/70 92 01/03/24 07:07 36.6 C 57 L 18 130/69 96 01/03/24 07:05 O2 Del Method 01/03/24 14:40 Room Air 01/03/24 11:41 Room Air 01/03/24 07:40 Room Air 01/03/24 07:07 Room Air 01/03/24 07:05 Room Air Laboratory Results Abnormal lab results 01/02/24 01/02/24 01/03/24 Range/Units 16:28 20:22 07:31 POC Glucose 115 H 111 H 136 H (70-99) mg/dl 01/03/24 Range/Units 11:19 POC Glucose 123 H (70-99) mg/dl PG Care Time/CCT Total # of Minutes Spent Total Time Spent with Patient: Total time spent is greater than 50% in coordination of care (as documented) at patient's floor/unit and/or counseling patient: Coding Level of Care Code 01162 SUB INP/OBS CARE 2/35MIN Diagnoses Fibula fracture S82.409A Fall W19.XXXA Acute right ankle pain M25.571 Chronicity: acute UTI (urinary tract infection) N39.0 Dehydration E86.0 Anemia D64.9 Anemia type: unspecified type Type 2 diabetes mellitus E11.9 Primary hypertension I10 Hypertension type: primary hypertension (3) Ankle pain, right Chronicity: acute Qualified Code(s): M25.571 - Pain in right ankle and joints of right foot (6) Anemia Anemia type: unspecified type Qualified Code(s): D64.9 - Anemia, unspecified (8) Hypertension Hypertension type: primary hypertension Qualified Code(s): I10 - Essential (primary) hypertension
--- NOTE | 2024-01-04 13:26 | Hospitalist Progress Note ---
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 coli. Completed course of ciprofloxacin (5) Dehydration: Plan: Resolved (6) Anemia: Plan: Has a known history of iron deficiency anemia, is a Jewish so will not receive blood products Hemoglobin is currently stable [facility] for possible iron transfusion iv iron (7) Type 2 diabetes mellitus: Plan: Monitor BSG ACHS, goal is [id number] Hold metformin for now Start CF 15 CR 15 ACHS Adjust regimen as needed (8) Hypertension: Plan: Currently stable Continue amlodipine Plan DNR/DNI DVT prophylaxis: Heparin 3 times daily Right upper quadrant pain was most likely related to constipation. Ultrasound right upper quadrant showed cirrhotic liver and a question of a liver mass. This can be pursued outpatient. Will treat constipation. Pain seems to have resolved. Admission and Anticipated Discharge Date Admission Date: December 28, 2023 Subjective Patient feels well. Denies chest pain or shortness of breath. Review of Systems Review of Systems: All systems reviewed & are unremarkable except as noted in Subjective Physical Exam Physical Exam: General: Awake, conversant Heart: S1, S2/regular rate and rhythm, no murmur rubs or gallops Lungs: Clear to auscultation bilaterally. Normal effort Abdomen: Soft/nontender/nondistended. No hepatosplenomegaly Extremities: No clubbing/cyanosis. No edema of the left leg. Right ankle brace on Behavior: Appropriate, cooperative Results & Data Results & Data Vital Signs (Past 12 Hours) Vital Signs Temp Pulse Resp BP Pulse Ox O2 Del Method 01/04/24 07:05 Room Air 01/04/24 06:50 36.8 C 58 L 20 148/72 H 98 Room Air Laboratory Results Abnormal lab results 01/03/24 01/03/24 01/04/24 Range/Units 16:25 19:57 08:01 POC Glucose 150 H 126 H 126 H (70-99) mg/dl 01/04/24 Range/Units 11:45 POC Glucose 141 H (70-99) mg/dl PG Care Time/CCT Total # of Minutes Spent Total Time Spent with Patient: Total time spent is greater than 50% in coordination of care (as documented) at patient's floor/unit and/or counseling patient: Coding Level of Care Code 93182 SUB INP/OBS CARE 2/35MIN Diagnoses Fibula fracture S82.409A Fall W19.XXXA Acute right ankle pain M25.571 Chronicity: acute UTI (urinary tract infection) N39.0 Dehydration E86.0 Anemia D64.9 Anemia type: unspecified type Type 2 diabetes mellitus E11.9 Primary hypertension I10 Hypertension type: primary hypertension (3) Ankle pain, right Chronicity: acute Qualified Code(s): M25.571 - Pain in right ankle and joints of right foot (6) Anemia Anemia type: unspecified type Qualified Code(s): D64.9 - Anemia, unspecified (8) Hypertension Hypertension type: primary hypertension Qualified Code(s): I10 - Essential (primary) hypertension
[2024-01-05 08:02] VITALS: RESP 15; TEMP 97.9; O2SAT 95
--- NOTE | 2024-01-05 09:49 | Discharge Summary ---
Date of Service January 05, 2024 Admission HPI Per Admitting Provider Chanelle is an 78 yr old female with a PMH significant for dementia, GI bleed, HTN, HLD, recurrent syncope, cirrhosis, and DMII who presented to the [facility] ED on 12/26/2023 via EMS after sustaining a fall at home. She remained stable in the ED. Labs were significant for stable hemoglobin of 9.6, creatinine of 1.33 (baseline is near 0.9), corrected sodium 130, anion gap of 12 with bicarb within normal limits, with UA in process. CT of the head and brain without contrast, CT of the cervical spine, x-ray of the right hip and pelvis, and x-ray of the right knee were read as negative for acute findings. X-ray of the right ankle was read as soft tissue swelling without evidence of underlying bony abnormality. Patient was sitting in bed in no acute distress at time of exam with her bedside, history is obtained mainly from the patient's due to to her baseline mental status. He explains that the patient has been going to physical therapy due to her baseline amatory dysfunction, she normally ambulates well with a walker. He was trying to get her to their car to take her to a hair point around 4 PM this evening during the period. He had a try and use her cane or rolling walker due to trying to get into the garage to get to the car for which she has to get up 1 step. He was trying to assist her getting up the step when she appeared to fall. Her was able to assist her to the ground but she did did land on her knees and hands. They are unsure if she lost consciousness but he states that she was alert and he lowered her to the ground. She did not hit her head. Her asthma explains that she is due to have another iron transfusion tomorrow at the [facility]. Currently denies chest pain, shortness of breath, abdominal pain, nausea/vomiting, dysuria/hematuria, diarrhea, melena, or significant swelling. She does have right ankle pain and swelling since the fall. I discussed CODE STATUS with the patient and her , her explained that they do have a living will and the patient is a DNI/DNI as they are Jehov[employer]'s Witnesses. Please refer to Dr. Bell's attestation for any changes to treatment plan Admission Exam Per Admitting Provider General: In no acute distress, stated age, well-nourished, non-toxic appearing HEENT: Normocephalic, atraumatic, no scleral icterus, pupils around round, symmetrical, and reactive to light, moist mucus membranes, trachea midline, no thyromegaly Chest/Pulm: No respiratory distress, symmetrical chest expansion, clear breath sounds throughout Cardiac: RRR, no murmurs noted Abdomen: Negative for ascites and bruising, normoactive bowel sounds, soft, non- tender to palpation throughout Musculoskeletal: Right ankle is swollen with mild bruising on the lateral aspect, otherwise no acute trauma noted Extremities: Radial, dorsalis pedis, and posterior tibial pulses are intact and symmetrical, no edema noted in the BL LE's Skin: Warm, dry, no rashes , lesions, or scars noted Neuro: Alert and oriented to person and place, no focal defects, CN II-XII tested and intact, no tremors noted Psych: No acute distress, calm and cooperative during the exam Principal Diagnosis Fall Ambulatory dysfunction Right fibula fracture Acute UTI. Treated. Dehydration. Resolved Liver cirrhosis, previously known. Question of a liver mass, will need to be pursued outpatient Discharge Exam General: Awake, conversant Heart: S1, S2/regular rate and rhythm, no murmur rubs or gallops Lungs: Clear to auscultation bilaterally. Normal effort Abdomen: Soft/nontender/nondistended. No hepatosplenomegaly Extremities: No clubbing/cyanosis. No edema of the left leg. Right ankle brace on Behavior: Appropriate, cooperative Discharge Data Allergies Allergy/AdvReac Type Severity Reaction Status Date / Time bee venom protein (honey bee) Allergy Severe SWELLS UP Verified 12/26/23 19:38 cefazolin Allergy Severe SHORTNESS Verified 12/26/23 19:38 OF BREATH adhesive Allergy Intermediate HIVES WITH Verified 12/26/23 19:38 TAPE azithromycin Allergy Unknown CAN'T Verified 12/26/23 19:38 REMEMBER candesartan AdvReac Intermediate cough Verified 12/26/23 19:38 enalapril AdvReac Intermediate cough Verified 12/26/23 19:38 lisinopril AdvReac Intermediate COUGH Verified 12/26/23 19:38 morphine AdvReac Intermediate ABNORMAL Verified 12/26/23 19:38 DREAMS/PASSED OUT nitroglycerin AdvReac Intermediate GI SYMPTOMS Verified 12/26/23 19:38 Consultations 12/26/23 19:25 ED Decision to Admit Stat 12/27/23 12:36 Consult Podiatry Routine Ordered Studies 12/26/23 17:55 CT cervical spine wo con Stat CT head/brain wo con Stat 12/28/23 12:02 CT ankle RT wo con Routine 01/03/24 US abdomen limited Stat Hospital Course (1) Fibula fracture: Age-related osteoporosis with current pathologic fracture, right ankle, POA CT leg is consistent with trimalleolar fx on the right side no surgery no weight bearing 6-8 weeks rehab pain control Hay Farmer involved (2) Fall: PT/OT consulted Fall/aspiration precautions Bilateral SCDs for DVT prophylaxis (3) Ankle pain, right: Patient's right ankle is currently swollen mildly bruised on the lateral aspect since 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 coli. Completed course of ciprofloxacin (5) Dehydration: Resolved (6) Anemia: Has a known history of iron deficiency anemia, is a [employer] so will not receive blood products Hemoglobin is currently stable [facility] for possible iron transfusion (7) Type 2 diabetes mellitus: Monitor BSG ACHS, goal is [id number] Hold metformin for now Start CF 15 CR 15 ACHS Adjust regimen as needed (8) Hypertension: Currently stable Continue amlodipine Plan DNR/DNI DVT prophylaxis: Heparin 3 times daily Right upper quadrant pain was most likely related to constipation. Ultrasound right upper quadrant showed cirrhotic liver and a question of a liver mass. This can be pursued outpatient. Pain seems to have resolved. Total Time Total Time Spent Total Time Spent (In Minutes): 35 Discharge Plan Discharge Items Patient Disposition: Transfer Long-Term Fac Reason For Visit: FALL, DEHYDRATION, AMBULATORY DYSFUNCTION Discharge Diagnosis: Fall Ambulatory dysfunction Right fibula fracture Acute UTI. Treated. Dehydration. Resolved Liver cirrhosis, previously known. Question of a liver mass, will need to be pursued outpatient Activity: As commented below Activity Comment: Per PT/OT recommendations. Nonweightbearing to the right lower extremity Non-emergency contact: Primary Care Provider Call non-emergency contact if: you have any medication questions and your symptoms worsen Follow-up/Referrals: Candis Lee DO [Primary Care Provider] - Diet: Carb Consistent or DM2 and Heart Healthy Addtl Attending Provider Instructions: Advised to follow-up with PCP in 1 week Pending Studies at Discharge: No Stand-Alone Forms: My [facility] Skilled Items Patient informed of condition?: Yes DNR: Yes Discharge Level of Care: Skilled Communicable Disease: No Discharge Prognosis: Stable Lines: None Urinary Catheter: No Medications and DC Order Prescriptions: Continued multivitamin tablet 1 tab PO QAM donepezil 5 mg tablet 5 mg PO DAILY Qty: 90 2RF magnesium oxide 400 mg (241.3 mg magnesium) tablet 400 mg PO TID Qty: 90 3RF escitalopram oxalate 20 mg tablet 20 mg PO QAM Qty: 90 3RF cetirizine [Zyrtec] 10 mg tablet 10 mg PO DAILY Qty: 90 1RF ipratropium bromide 21 mcg (0.03 %) spray,non-aerosol 2 spray intranasal BID PRN (Reason: chronic cough) Qty: 30 5RF Rx Instructions: administer into each nostril potassium chloride 10 mEq tablet extended release 10 meq PO DAILY Qty: 30 5RF Hold Instructions: Provider's Order pantoprazole [Protonix] 40 mg tablet,delayed release (DR/EC) 40 mg PO BID Qty: 60 5RF levothyroxine [Synthroid] 75 mcg tablet 75 mcg PO DAILY Qty: 30 2RF furosemide [Lasix] 20 mg tablet 20 mg PO DAILY Qty: 30 5RF Hold Instructions: Provider's Order atorvastatin 10 mg tablet 10 mg PO DAILY Qty: 100 3RF (DME) blood-glucose meter [OneTouch Ultra2 Meter] Misc See Rx Instructions .Route Qty: 1 0RF Rx Instructions: testing twice daily DX: E11.9 glycopyrrolate [Robinul] 1 mg tablet 1 mg PO BID Qty: 60 0RF Proair Digihaler 90 mcg/actuation aero powdr breath act w/sensor 2 inh inhalation Q6H Qty: 1 3RF amlodipine 5 mg tablet 5 mg PO DAILY Qty: 30 11RF fluticasone propionate [Flonase Allergy Relief] 50 mcg/actuation spray,suspension 1 spray intranasal DAILY Qty: 16 2RF Rx Instructions: administer into each nostril (DME) OneTouch Verio test strips Strip See Rx Instructions .ROUTE .MEDSUPPLY Qty: 100 11RF Rx Instructions: Testing blood sugar twice daily (DME) lancets 33 gauge misc See Rx Instructions .ROUTE .MEDSUPPLY Qty: 100 3RF Rx Instructions: Testing blood sugar twice daily cyanocobalamin (vitamin B-12) 500 mcg Tablet 1,000 mcg PO QAM Qty: 30 0RF docusate sodium 100 mg Capsule 100 mg PO BID Qty: 20 0RF metformin 500 mg tablet 500 mg PO BID Qty: 60 5RF Discharge Orders: Discharge Order (Routine); Ordered 01/05/24 Ordered By: Claudine Oropeza Admission Data Admit Date/Time: 12/28/23 13:28 Attending Provider: Claudine Oropeza Admit Provider: Jeovanny Bell Primary Care Provider: Candis Lee Other Providers: Jeovanny Bell; Franci Acosta; Juan Jose Acosta; [facility]; IRB Approved Study,Judd Other Interventions: Discharge Summary Assessment (RN) Last Done: 01/05/24 12:07
[2024-01-05 12:10] VITALS: BP 128/62; PULSE 62
== END 2024-01-05 14:30 | DRG 543 ==
LOC: ED 17:48 → 2N 17:48 → SUATTDRO 19:55 → 2N 23:25 → SUATTDRO 12-28 13:28 → 3W 01-01 02:51

== ENCOUNTER 2024-01-17 11:52 | Inpatient (IN) ==
--- NOTE | 2024-01-17 11:58 | Emergency Department Note ---
Impression & Plan Acute hyponatremia, Anemia, Weakness ED Provider Note NAME: ESTEPHANIE LYNN AGE: 78 SEX: F : 1945 ARRIVES VIA: Ambulance INFORMANT: Patient ED PROVIDER(S): Mack Slater DO CHIEF COMPLAINT: weak HPI: Patient is an 78-year-old female with a past medical history of anemia, syncope, dementia and diabetes who presents to the ER from [facility]. External records show that she has a sodium level 119 and she has been more weak. She was recently admitted to [facility] secondary to an ankle fracture following a initial hospital admission. She is pleasantly demented at her baseline per EMS. ADDITIONAL HISTORY OBTAINED: Per HPI Chronic Medical/Social Conditions Affecting Care: Per HPI PAST MEDICAL HISTORY:See Below PAST SURGICAL HISTORY:See Below FAMILY HISTORY:See Below SOCIAL HISTORY:See Below HOME MEDICATIONS:See Below ALLERGIES:See Below VITALS:See Below PHYSICAL EXAMINATION: GENERAL: Sitting up in bed, alert, well appearing, well nourished, no distress, non-toxic EYE EXAM: normal conjunctiva. OROPHARYNX: mucous membranes are moist LUNGS: Clear to auscultation. Normal chest wall mechanics HEART: no murmurs, S1 normal and S2 normal ABDOMEN: abdomen soft, non-tender, normo-active bowel sounds, no masses, no rebound or guarding. UPPER EXTREMITIES: upper extremities are grossly normal. LOWER EXTREMITIES: Bruising over the right lateral ankle and foot. NEURO EXAM: Awake alert oriented to person following commands moving all extremities MEDICAL DECISION MAKING: Patient is an 78-year-old female who presents ER for above-stated complaint. IV was established blood work was obtained. Labs show no significant leukocytosis and a mild anemia 10. BMP with a significant hyponatremia at 120 which is slightly up from the external records which showed 119 per the report given and transferred with the patient. LFTs and bilirubin was unremarkable. Patient was given a 500 bolus of normal saline. Discussed with the hospitalist for further evaluation management treatment. Consults/Care Managements Discussions: Per MDM Triage Nursing notes reviewed. Limited review of prior medical records performed Vital Signs: reviewed and remarkable for no significant abnormalities Differential diagnosis: Infection, dehydration, metabolic abnormality, hypo/hyperglycemia, electrolyte disturbance, anemia, hypoxia, cardiac sources, intracerebral event, toxicologic, neurologic, as well as other pathologies. ER treatment provided: See below Diagnostics interpreted by me include EKG and cardiac monitoring as listed below: -Cardiac Monitoring: An order was placed for continuous cardiac monitoring. The monitor shows a rate of 70 with sinus rhythm. -ECG: none -Laboratory studies:Interpreted by me as stated above in MDM and shown below. Imaging studies: Xrays: As interpreted by me:none CTs show: none Procedures:none Critical Care: None Past Med/Surg History Problem List (Updated 01/17/24 @ 18:15 by Mack Slater, ) Weakness (Acute) Anemia (Acute) Acute hyponatremia (Acute) Fibula fracture (12/26/23) right trimalleolar fractures from a fall Fall (Acute) Acute hyponatremia (Acute) Anemia (Acute) Syncope (Acute) Dehydration Ankle pain, right Fall Anemia (Acute) Constipation Encounter for interrogation of cardiac recorder Cough Chronic cough Allergic rhinitis Recurrent syncope Status post placement of implantable loop recorder Hypomagnesemia History of syncope hx- no issues in years ADMITTED [facility] 12/31/18-EKG/ECHO /HOLTER MONITOR-NO DIAGNOSIS PER PT- Cirrhosis LGI bleed 03/2022 admitted [place] Dementia Asthma mild, rarzelalem uses inhaler GERD (gastroesophageal reflux disease) Anxiety and depression Lumbar spinal stenosis TMJ syndrome Type 2 diabetes mellitus Hypertension Hypothyroidism Medical History Hyponatremia Acute kidney injury Refusal of blood transfusions as patient is [employer] Hyperlipidemia Vitamin D deficiency Falls frequently Syncope, vasovagal Seasonal allergies mild Implantable loop recorder present follows w/ Dr Milian last visit 02/2022 Acute upper GI bleed Nausea and vomiting after administration of anesthetic agent Surgical History History of esophagogastroduodenoscopy (EGD) Hx of colonoscopy Status post total hip replacement, 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) S/P total hysterectomy and bilateral salpingo-oophorectomy S/P tonsillectomy S/P cholecystectomy S/P appendectomy Family History Father Hypertension Myocardial infarction Diabetes Coronary heart disease Sister Coronary heart disease Mother Diabetes Myocardial infarction Coronary heart disease Hypertension Denies family history of Ovarian cancer Prostate cancer Breast cancer Colorectal cancer Social History Smoking Status: Never smoker Second Hand Exposure: No; Do You Dip or Chew Tobacco: No; Hx Alcohol Use: No Hx Substance Use: No Preferred Language: Slovak Communication Ability: Effective Visual Impairment: Limited Hearing Ability: Normal Loan Operations Specialist Required: No Beliefs That Will Affect Care: Anabaptist Anabaptist Beliefs: Doreen Witness- No blood products marital status: Current Living Situation: Spouse current occupational status: retired Feels Safe at Home: Yes Childhood Exposure to Second-Hand Smoke: No Diet: regular Diet Comment: regular caffeine: No during the past year weight has: remained stable Dental Care, Regularly: Yes Physical Activity Frequency: 1-2 Times per Week Seatbelt Use: always Sunscreen Use: Yes Assistive Devices: Walker Allergies Allergies Allergy/AdvReac Type Severity Reaction Status Date / Time bee venom protein (honey bee) Allergy Severe SWELLS UP Verified 12/26/23 19:38 cefazolin Allergy Severe SHORTNESS Verified 12/26/23 19:38 OF BREATH adhesive Allergy Intermediate HIVES WITH Verified 12/26/23 19:38 TAPE azithromycin Allergy Unknown CAN'T Verified 12/26/23 19:38 REMEMBER candesartan AdvReac Intermediate cough Verified 12/26/23 19:38 enalapril AdvReac Intermediate cough Verified 12/26/23 19:38 lisinopril AdvReac Intermediate COUGH Verified 12/26/23 19:38 morphine AdvReac Intermediate ABNORMAL Verified 12/26/23 19:38 DREAMS/PASSED OUT nitroglycerin AdvReac Intermediate GI SYMPTOMS Verified 12/26/23 19:38 Home Meds Home Medications Medication Instructions Recorded Confirmed multivitamin 1 tab PO QAM 12/17/18 01/17/24 Previous Rx's Medication Instructions Recorded cyanocobalamin (vitamin B-12) 500 1,000 mcg (2 x 500 mcg) PO QAM #30 03/26/22 mcg tablet tabs donepezil 5 mg tablet 5 mg PO DAILY #90 tabs 09/22/22 magnesium oxide 400 mg (241.3 mg 400 mg PO TID #90 tabs 12/30/22 magnesium) tablet escitalopram oxalate 20 mg tablet 20 mg PO QAM #90 tabs 05/24/23 amlodipine 5 mg tablet 5 mg PO DAILY #30 tabs 06/01/23 docusate sodium 100 mg capsule 100 mg PO BID #20 caps 06/18/23 cetirizine 10 mg tablet (Zyrtec) 10 mg PO DAILY allergy symptoms 07/24/23 #90 tabs ipratropium bromide 21 mcg (0.03 2 spray intranasal BID PRN chronic 07/24/23 %) nasal spray cough #30 mL potassium chloride 10 mEq 10 meq PO DAILY #30 tabs 07/27/23 tablet,extended release albuterol sulfate 90 mcg/actuation 2 inh inhalation Q6H cough #1 ea 09/12/23 breath activated powder inhaler,sensor (Proair Digihaler) pantoprazole 40 mg tablet,delayed 40 mg PO BID #60 tabs 11/03/23 release (Protonix) metformin 500 mg tablet 500 mg PO BID #60 tabs 11/22/23 Synthroid 75 mcg tablet 75 mcg PO DAILY #30 tabs 11/24/23 (levothyroxine) furosemide 20 mg tablet (Lasix) 20 mg PO DAILY #30 tabs 11/29/23 atorvastatin 10 mg tablet 10 mg PO DAILY #100 tabs 12/02/23 blood-glucose meter (OneTouch #1 ea 12/05/23 Ultra2 Meter) blood sugar diagnostic (OneTouch #100 ea 12/11/23 Verio test strips) fluticasone propionate 50 1 spray intranasal DAILY #16 grams 12/11/23 mcg/actuation nasal spray,suspension (Flonase Allergy Relief) lancets 33 gauge #100 ea 12/11/23 glycopyrrolate 1 mg tablet 1 mg PO BID #60 tabs 12/25/23 (Robinul) Results & Data (ED) Vital Signs Vital Signs - 24 hr 01/17/24 11:59 01/17/24 12:56 01/17/24 13:04 Temperature 36.6 C Temperature Source Oral Pulse Rate 57 L 49 L Pulse Rate [Finger] Pulse Rhythm Regular Regular Pulse Rhythm [Finger] Pulse Strength Normal Pulse Strength [Finger] Respiratory Rate 18 Respiratory Effort / Characteristics Non-Labored Respiratory Depth Normal Respiratory Pattern Regular Blood Pressure 152/62 H Blood Pressure [Left Arm] Blood Pressure Mean 92 Blood Pressure Mean [Left Arm] Blood Pressure Position Lying Blood Pressure Position [Left Arm] Pulse Oximetry 97 93 Oxygen Delivery Method Room Air Room Air Sepsis Recent Fever Within 48 Hours No Sepsis New/Unexplained Change in Mental Status N/A Sepsis Action Taken by Nursing No Action Required 01/17/24 13:30 Temperature Temperature Source Pulse Rate Pulse Rate [Finger] 57 L Pulse Rhythm Pulse Rhythm [Finger] Regular Pulse Strength Pulse Strength [Finger] Normal Respiratory Rate 18 Respiratory Effort / Characteristics Non-Labored Respiratory Depth Normal Respiratory Pattern Regular Blood Pressure Blood Pressure [Left Arm] 141/62 H Blood Pressure Mean Blood Pressure Mean [Left Arm] 88 Blood Pressure Position Blood Pressure Position [Left Arm] Lying Pulse Oximetry 93 Oxygen Delivery Method Room Air Sepsis Recent Fever Within 48 Hours Sepsis New/Unexplained Change in Mental Status Sepsis Action Taken by Nursing Laboratory Data 01/17/24 12:34 01/17/24 16:29 Lab Results 01/17/24 01/17/24 01/17/24 Range/Units 12:34 12:44 13:29 WBC 5.81 (4.8-10.8) K/ul RBC 3.99 L (4.20-5.40) M/uL Hgb 10.4 L (12.0-16.0) g/dl POC Hgb 11.6 L (12.0-16.0) g/dl Hct 32.3 L (37.0-47.0) % POC Hct 34 L (37-47) % MCV 81.0 (80.0-100.0) fL MCH 26.1 (25.0-34.0) pg MCHC 32.2 (32.0-36.0) g/dL RDW Std Deviation 59.2 H (36.4-46.3) fL RDW Coeff of [place] 20.1 H (11.5-14.5) % Plt Count 212 (130-400) K/uL MPV 9.6 (9.4-12.4) fL Immature Gran % (Auto) 0.3 % Neut % (Auto) 62.4 % Lymph % (Auto) 20.5 % [place] % (Auto) 10.3 % Eos % (Auto) 6.0 % Baso % (Auto) 0.5 % Neut # (Auto) 3.62 (1.40-6.50) K/uL Lymph # (Auto) 1.19 L (1.20-3.40) K/uL [place]per # (Auto) 0.60 H (0.11-0.59) K/uL Eos # (Auto) 0.35 (0.00-0.50) K/uL Baso # (Auto) 0.03 (0.00-0.20) K/uL Immature Gran # (Auto) 0.02 (0.01-0.20) K/uL Anisocytosis Present POC Sodium 120 L (135-144) mmol/L Sodium 120 L (136-145) mmol/L POC Potassium 4.8 (3.3-5.0) mmol/L Potassium 4.7 (3.5-5.1) mmol/L POC Chloride 82 L (101-112) mmol/L Chloride 84 L (98-107) mmol/L Carbon Dioxide 27 (21-32) mmol/L POC Total CO2 24 (24-31) mmol/L Anion Gap 9 (3-11) POC Anion Gap 20.0 (16-25) mmol/L POC BUN 14 (7-18) mg/dl BUN 15 (6-23) mg/dl Creatinine 1.07 (0.6-1.2) mg/dl POC Creatinine 1.2 (0.6-1.3) mg/dl Est Cr Clr Drug Dosing 39.8 ml/min Est GFR ( Amer) 56.8 ml/min Est GFR (Non-Af Amer) 49.0 ml/min BUN/Creatinine Ratio 14.0 (10-20) Glucose 119 H (70-99(Fasting)) mg/dl POC Glucose (other) 117 H (70-99) mg/dl Osmolality 256 L (280-300) mOsm/kg Calcium 9.1 (8.6-10.3) mg/dl POC Ioniz Calcium Jewel 1.15 (1.12-1.32) mmol/l Total Bilirubin 0.5 (0.2-1.0) mg/dl AST 22 (13-39) U/L ALT 11 (7-52) U/L Alkaline Phosphatase 77 (34-104) U/L Total Protein 7.1 (6.0-8.3) gm/dl Albumin 4.1 (3.4-5.0) gm/dl Globulin 3.0 (2.5-4.0) gm/dl Albumin/Globulin Ratio 1.4 (0.9-2) Urine Osmolality 154 L (500-800) mOsm/kg Ur Random Sodium 42 mmol/L Administered Medications Albuterol (Albuterol Hfa 8 Gm Inhaler) 2 puffs INH Q6H PRN PRN Reason: Wheezing Stop: 02/16/24 16:44 Last Admin: 01/17/24 17:10 Dose: 2 puffs Documented By: [place] Magnesium Oxide (Magnesium Oxide 400 Mg Tab) 400 mg PO TID CHICO Stop: 02/16/24 16:44 Last Admin: 01/17/24 17:12 Dose: 400 mg Documented By: NH Discontinued Medications Sodium Chloride (Nss) 500 mls @ 999 mls/hr IV .Q31M ONE Stop: 01/17/24 13:47 Last Infusion: 01/17/24 16:51 Dose: Infused Documented By: [facility] Admin: 01/17/24 13:55 Dose: 999 mls/hr Documented By: [facility] Discharge Plan Visit Data Chief Complaint: Abnormal Labs/Diagnostic Testing Stated Complaint: ABNORMAL LABS ED Provider: Mack Slater Discharge Problem: Acute hyponatremia, Anemia, Weakness Patient Disposition: Admitted As Inpatient Discharge Instructions Interventions: ED Discharge Assessment Last Done: 01/17/24 16:27 Discharge Problem: Anemia Qualifiers: Anemia type: unspecified type Qualified Code(s): D64.9 - Anemia, unspecified
[2024-01-17 12:56] LABS: iSTAT Creatinine 1.2 mg/dl (0.6-1.3); iSTAT Hemoglobin 11.6 g/dl (12.0-16.0); iSTAT Ionized Calcium 1.15 mmol/l (1.12-1.32); iSTAT Potassium 4.8 mmol/L (3.3-5.0)
[2024-01-17 13:13] LABS: Basophils # (auto) 0.03 K/uL (0.00-0.20); Basophils % (auto) 0.5 %; Eosinophils # (auto) 0.35 K/uL (0.00-0.50); Hematocrit (blood only) 32.3 % (37.0-47.0); Hemoglobin 10.4 g/dl (12.0-16.0); Immature Granulocytes # (auto) 0.02 K/uL (0.01-0.20); Immature Granulocytes % (auto) 0.3 %; Lymphocytes # (auto) 1.19 K/uL (1.20-3.40); Lymphocytes % (auto) 20.5 %; Mean Corpuscular Hemoglobin 26.1 pg (25.0-34.0); Mean Corpuscular Hgb Conc 32.2 g/dL (32.0-36.0); Mean Platelet Volume 9.6 fL (9.4-12.4); Monocytes % (auto) 10.3 %; Neutrophils # (auto) 3.62 K/uL (1.40-6.50); Neutrophils % (auto) 62.4 %; Platelet Count 212 K/uL (130-400); RDW Coefficient of Variation 20.1 % (11.5-14.5); RDW Standard Deviation 59.2 fL (36.4-46.3); Red Blood Count 3.99 M/uL (4.20-5.40); White Blood Count 5.81 K/ul (4.8-10.8)
[2024-01-17 13:32] LABS: Albumin Globulin Ratio 1.4 (0.9-2); Albumin Level 4.1 gm/dl (3.4-5.0); Bilirubin,Total 0.5 mg/dl (0.2-1.0); Calcium 9.1 mg/dl (8.6-10.3); Creatinine Clr Calc Pharmacy 39.8 ml/min; Est GFR (African American) 56.8 ml/min; Potassium 4.7 mmol/L (3.5-5.1); Total Protein 7.1 gm/dl (6.0-8.3)
[2024-01-17 13:33] LABS: Anisocytosis Present
--- NOTE | 2024-01-17 13:45 | History & Physical Report ---
Date of Service January 17, 2024 Assessment & Plan (1) Hyponatremia: Plan: Hyponatremia With associated weakness Sodium 120 on admission Serum osmolality 256 With poor p.o. intake and volume contraction, suspected hypovolemic hyponatremia Received 500 cc NSS in the ER Urine sodium/osmolality are ordered; however patient is on Lasix daily in the morning and had received this. Sodium will not be reliable. Will obtain urine sodium/urine osmolality in AM. If urine sodium is elevated consistent with SIADH then will fluid restrict and start salt tablets, if urine sodium is low consistent with solute depletion then we will continue cautious fluid hydration and trend BMP every 4 hours. For now we will continue liberalize diet, trend sodium every 4 hours, and fluid restrict. If sodium change greater than 8 / 24-hour. May give D5 to correct. Goal 68meq change per 24-hour SSRI held until SIADH ruled out Falls, weakness Multifactoria with deconditioning, and hyponatremia. Also with past history of UTIs PT/OT pending UA pending, no urinary symptoms RIGHT Trimalleolar fx - Noted on prior CT. Nonoperative as per business analyst intern fibula fx , no WB for 6 weeks Elevate right lower extremity every shift - NWB RLE Type II DM Goal 295201 BSG CF 40, Ratio 20 Type II DM diet Anemia History of MERRY, patient is a [place] and cannot receive any blood products HEmoglobin 10.4 on admission, uptrending from 8.7 -MCV borderline reduced at 81 Continue outpatient follow-up for iron treatments as needed. If remaining send patient may get up to 3X 300 mg Venofer doses while inpatient. DVT prophylaxis: SCDs. History of hemorrhage while on pharmacpprophylaxis/LGI bleed Diet: Liberalized soft bite-size CODE STATUS: DNR/DNI History of Present Illness Primary Care Provider: Candis Lee DO Chanelle is an 78-year-old female with a past medical history of dementia, GI bleed, hypertension, hyperlipidemia, cirrhosis, DM 2 recent admission 12/26/2023 - 01/05/2024 after a fall. Presents with weakness and hyponatremia. Scented on referral from [facility] for labs showing low sodium. History is limited from patient due to dementia. Pleasantly confused on admission. Denies pain. Denies fever, chills, sweats, lightheadedness, dizziness, chest pain, chest pressure, ankle pain. She is not sure why she is in the hospital. Medical History: Reviewed Medications: Reviewed Surgical History: Reviewed Family history: Reviewed Allergies: Reviewed Social History: Reviewed Code Status: DNR/DNI, reviewed Allergies Allergy/AdvReac Type Severity Reaction Status Date / Time bee venom protein (honey bee) Allergy Severe SWELLS UP Verified 12/26/23 19:38 cefazolin Allergy Severe SHORTNESS Verified 12/26/23 19:38 OF BREATH adhesive Allergy Intermediate HIVES WITH Verified 12/26/23 19:38 TAPE azithromycin Allergy Unknown CAN'T Verified 12/26/23 19:38 REMEMBER candesartan AdvReac Intermediate cough Verified 12/26/23 19:38 enalapril AdvReac Intermediate cough Verified 12/26/23 19:38 lisinopril AdvReac Intermediate COUGH Verified 12/26/23 19:38 morphine AdvReac Intermediate ABNORMAL Verified 12/26/23 19:38 DREAMS/PASSED OUT nitroglycerin AdvReac Intermediate GI SYMPTOMS Verified 12/26/23 19:38 Home Medications Medication Instructions Recorded Confirmed Type multivitamin 1 tab PO QAM 12/17/18 01/17/24 History cyanocobalamin (vitamin B-12) 500 1,000 mcg (2 x 500 mcg) PO QAM #30 03/26/22 01/17/24 Rx mcg tablet tabs donepezil 5 mg tablet 5 mg PO DAILY #90 tabs 09/22/22 01/17/24 Rx magnesium oxide 400 mg (241.3 mg 400 mg PO TID #90 tabs 12/30/22 01/17/24 Rx magnesium) tablet escitalopram oxalate 20 mg tablet 20 mg PO QAM #90 tabs 05/24/23 01/17/24 Rx amlodipine 5 mg tablet 5 mg PO DAILY #30 tabs 06/01/23 01/17/24 Rx docusate sodium 100 mg capsule 100 mg PO BID #20 caps 06/18/23 01/17/24 Rx cetirizine 10 mg tablet (Zyrtec) 10 mg PO DAILY allergy symptoms 07/24/23 01/17/24 Rx #90 tabs ipratropium bromide 21 mcg (0.03 2 spray intranasal BID PRN chronic 07/24/23 01/17/24 Rx %) nasal spray cough #30 mL potassium chloride 10 mEq 10 meq PO DAILY #30 tabs 07/27/23 01/17/24 Rx tablet,extended release albuterol sulfate 90 mcg/actuation 2 inh inhalation Q6H cough #1 ea 09/12/23 01/17/24 Rx breath activated powder inhaler,sensor (Proair Digihaler) pantoprazole 40 mg tablet,delayed 40 mg PO BID #60 tabs 11/03/23 01/17/24 Rx release (Protonix) metformin 500 mg tablet 500 mg PO BID #60 tabs 11/22/23 01/17/24 Rx Synthroid 75 mcg tablet 75 mcg PO DAILY #30 tabs 11/24/23 01/17/24 Rx (levothyroxine) furosemide 20 mg tablet (Lasix) 20 mg PO DAILY #30 tabs 11/29/23 01/17/24 Rx atorvastatin 10 mg tablet 10 mg PO DAILY #100 tabs 12/02/23 01/17/24 Rx blood-glucose meter (OneTouch #1 ea 12/05/23 12/11/23 Rx Ultra2 Meter) blood sugar diagnostic (OneTouch #100 ea 12/11/23 12/11/23 Rx Verio test strips) fluticasone propionate 50 1 spray intranasal DAILY #16 grams 12/11/23 01/17/24 Rx mcg/actuation nasal spray,suspension (Flonase Allergy Relief) lancets 33 gauge #100 ea 12/11/23 12/11/23 Rx glycopyrrolate 1 mg tablet 1 mg PO BID #60 tabs 12/25/23 01/17/24 Rx (Robcontrerasul) Past Med/Surg History Problem List (Updated 01/11/24 @ 00:06 by Background Jignesh) Fibula fracture (12/26/23) right trimalleolar fractures from a fall Fall (Acute) Acute hyponatremia (Acute) Anemia (Acute) Syncope (Acute) Dehydration Ankle pain, right Fall Anemia (Acute) Constipation Encounter for interrogation of cardiac recorder Cough Chronic cough Allergic rhinitis Recurrent syncope Status post placement of implantable loop recorder Hypomagnesemia History of syncope hx- no issues in years ADMITTED [facility] 12/31/18-EKG/ECHO /HOLTER MONITOR-NO DIAGNOSIS PER PT- Cirrhosis LGI bleed 03/2022 admitted [place] Dementia Asthma mild, rarley uses inhaler GERD (gastroesophageal reflux disease) Anxiety and depression Lumbar spinal stenosis TMJ syndrome Type 2 diabetes mellitus Hypertension Hypothyroidism Medical History Hyponatremia Acute kidney injury Refusal of blood transfusions as patient is [place] Hyperlipidemia Vitamin D deficiency Falls frequently Syncope, vasovagal Seasonal allergies mild Implantable loop recorder present follows w/ Dr Milian last visit 02/2022 Acute upper GI bleed Nausea and vomiting after administration of anesthetic agent Surgical History History of esophagogastroduodenoscopy (EGD) Hx of colonoscopy Status post total hip replacement, 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) S/P total hysterectomy and bilateral salpingo-oophorectomy S/P tonsillectomy S/P cholecystectomy S/P appendectomy Family History Father Hypertension Myocardial infarction Diabetes Coronary heart disease Sister Coronary heart disease Mother Diabetes Myocardial infarction Coronary heart disease Hypertension Denies family history of Ovarian cancer Prostate cancer Breast cancer Colorectal cancer Social History Smoking Status: Never smoker Second Hand Exposure: No; Do You Dip or Chew Tobacco: No; Hx Alcohol Use: No Hx Substance Use: No Preferred Language: Hebrew Communication Ability: Effective Visual Impairment: Limited Hearing Ability: Normal Architectural Examiner Required: No Beliefs That Will Affect Care: Buddhism Buddhism Beliefs: Jehovah Witness- No blood products marital status: Current Living Situation: Spouse current occupational status: retired Feels Safe at Home: Yes Childhood Exposure to Second-Hand Smoke: No Diet: regular Diet Comment: regular caffeine: No during the past year weight has: remained stable Dental Care, Regularly: Yes Physical Activity Frequency: 1-2 Times per Week Seatbelt Use: always Sunscreen Use: Yes Assistive Devices: Walker Physical Exam Physical Exam: General: A&O to name only. NAD. Cooperative. HEENT: Atraumatic, normocephalic. PERLAA. Vision and hearing grossly intact Pulm: CTAB A&P. -wheezes, -rales, -rhonchi. Symmetrical chest rise. No increased work of breathing. No respiratory distress. Cardiac: RRR, soft sm. Radial pulses intact and symmetrical. Abdominal: Nontender, nondistended, soft. BS present. Ext: R ankle minimally TTP at medial at lat malleolus, +medial bruising. Sensation to soft touch intact bilaterlly. Results & Data Results & Data Vital Signs (Past 12 Hours) Vital Signs Temp Pulse Resp BP Pulse Ox O2 Del Method 01/17/24 12:56 49 L 01/17/24 11:59 36.6 C 57 L 18 152/62 H 97 Room Air PG Care Time/CCT Total # of Minutes Spent Total Time Spent with Patient: Total time spent is greater than 50% in coordination of care (as documented) at patient's floor/unit and/or counseling patient: Coding Level of Care Code 67613 INT INP/OBS CARE 375MIN Diagnoses Hyponatremia E87.1
[2024-01-17] MEDS: SODIUM CHLORIDE 0.9% 500 ML IV ONE (13:55)
[2024-01-17] MEDS ORDERED: GLUCOSE 40% GEL 15 GM TUBE PO PRN (16:25)
[2024-01-17] MEDS ORDERED: GLUCAGON FOR INJ 1 MG VIAL SQ PRN (16:25)
[2024-01-17] MEDS ORDERED: CARBOHYDRATES FOR HYPOGLYCEMIA PO PRN (16:25)
[2024-01-17] MEDS ORDERED: GLUCOSE 10 TAB/TUBE PO PRN (16:25)
[2024-01-17] MEDS ORDERED: DEXTROSE 50% 50 ML SYRINGE IV PRN (16:25)
[2024-01-17 17:03] LABS: BUN Creatinine Ratio 14.2 (10-20); Calcium 8.4 mg/dl (8.6-10.3); Creatinine Clr Calc Pharmacy 40.1 ml/min; Est GFR (African American) 57.4 ml/min; Est GFR (Non-African American) 49.6 ml/min; Potassium 4.4 mmol/L (3.5-5.1)
[2024-01-17] MEDS: ALBUTEROL HFA 8 GM INHALER INH PRN (17:10)
[2024-01-17] MEDS: MAGNESIUM OXIDE 400 MG TAB PO SCH (17:12)
[2024-01-17] MEDS: INSULIN ASPART PER UNIT CHARGE SC SCH (18:27)
[2024-01-17] MEDS: DOCUSATE SODIUM 100 MG CAP PO SCH (20:02)
[2024-01-17] MEDS: PANTOprazole 40 MG TAB PO SCH (20:02)
[2024-01-17] MEDS: GLYCOPYRROLATE 1 MG TAB PO SCH (20:03)
[2024-01-17 21:10] LABS: BUN Creatinine Ratio 15.7 (10-20); Calcium 8.6 mg/dl (8.6-10.3); Creatinine Clr Calc Pharmacy 41.6 ml/min; Est GFR (African American) 60.2 ml/min; Est GFR (Non-African American) 51.9 ml/min; Potassium 4.2 mmol/L (3.5-5.1)
--- OUTSIDE RECORDS SUMMARY | 2024-01-17 23:27 | External Medical Summary | Summary of Care ---
Author Name Unknown Organization [facility] Address [address] [place] [address] Phone [phone] Care Team Providers Care Backup Administrative Coordinator Name Role Phone Unavailable Primary Care Provider Unavailabl e Reason for Visit * Reason Onset Date Comments Skilled Visit 01/16/2024 Encounter Details Date Type Department Care Team (Latest Contact Info) Description 01/16/2024 10:30 AM EDT Senior Living Visit [facility] [address] [place] [address] Denise Brice PA-C [address] [place] [address] Closed trimalleolar fracture of right ankle with routine healing, subsequent encounter*; Chronic cough; Moderate dementia with mood disturbance, unspecified dementia type ([facility]); Type 2 diabetes mellitus with hemoglobin A1c goal of less than 8.0% ([facility]) Allergies Active Allergy Reactions Criticality Noted Date Comments Bee Stings 01/25/2008 Morphine 01/24/2001 documented as of this encounter (statuses as of 01/16/2024) Medications Medication Sig Dispensed Refills Start Date End Date Status LORAZEPAM 0.5 MG PO TABSIndications:Anxiety state One pill by mouth 3 times a day as needed for anxiety 40 2 01/25/2008 Active MULTI-VITAMIN PO TABS 0 01/31/2008 Act savanah VENTOLIN HFA 108 (90 BASE) MCG/ACT IN AERS Use two puffs every four hours as needed for wheezing 1 5 01/31/2008 Active Furosemide 20 MG Oral Tablet (Lasix)Indications:HTN, goal below 140/90 Take 1 Tablet by mouth in the morning. 01/10/2024 Active Aspirin 81 MG Oral Tablet Chewable Take 1 Tablet by mouth in the morning and 1 Tablet before bedtime. with food.. 01/10/2024 Active metFORMIN HCl 500 MG Oral Tablet (Glucophage) Take 1 Tablet by mouth 2 times a day with morning and evening meals. 01/10/2024 Active Levothyroxine Sodium 75 MCG Oral Tablet (Synthroid)Indications: Acquired hypothyroidism Take 1 Tablet by mouth daily first thing in the morning. (at least 30 min prior to breakfast or other meds) 01/10/2024 Active amLODIPine Besylate 5 MG Oral Tablet (Norvasc) Take 1 Tablet by mouth in the morning. 01/10/2024 Active Atorvastatin Calcium 10 MG Oral Tablet (Lipitor) Take 1 Tablet by mouth in the morning. 01/10/2024 Active Cetirizine HCl 10 MG Oral Capsule Take 1 Capsule by mouth in the morning. 01/10/2024 Active Docusate Sodium 100 MG Oral Capsule (Colace) Take 1 Capsule by mouth in the morning and 1 Capsule before bedtime. 01/10/2024 Active Donepezil HCl 5 MG Oral Tablet (Aricept) Take 1 Tablet by mouth in the morning. Take with largest meal of the day.. 01/10/2024 Active Escitalopram Oxalate 20 MG Oral Tablet (Lexapro) Take 1 Tablet by mouth in the morning. 01/10/2024 Active Glycopyrrolate 1 MG Oral Tablet (Robinul) Take 1 Tablet by mouth in the morning and 1 Tablet before bedtime. 01/10/2024 Active Magnesium Oxide -Mg Supplement 400 (240 Mg) MG Oral Tablet (Mag-Ox) Take 1 Tablet by mouth in the morning and 1 Tablet at noon and 1 Tablet in the evening. 01/10/2024 Active Pantoprazole Sodium 40 MG Oral Tablet Delayed Release (Protonix) Take 1 Tablet by mouth in the morning and 1 Tablet before bedtime. 01/10/2024 Active Potassium Chloride ER 10 MEQ Oral Capsule Extended Release Take 1 Capsule by mouth in the morning. 01/10/2024 Active Vitamin B-12 1000 MCG Sublingual Tablet Sublingual Place 1 Tablet under the tongue in the morning. 01/10/2024 Active Ondansetron HCl 4 MG Oral Tablet Take 1 Tablet by mouth every 6 hours as needed for Nausea or Vomiting. 01/10/2024 Active documented as of this encounter (statuses as of 01/16/2024) Active Problems Problem Noted Date Diagnosed Date DNR (do not resuscitate) 01/15/2024 Moderate dementia with mood disturbance 01/10/20 24 Closed trimalleolar fracture of right ankle 12/21 Iron deficiency anemia 01/10/2024 Cirrhosis of liver without ascites 01/10/2024 Liver mass 01/10/2024 Gastroesophageal reflux disease 01/10/2024 Moderate persistent asthma without complication 01/10/2024 History of GI bleed 01/10/2024 No transfusions per episcopal beliefs 01/10/2024 Chronic cough 01/10/2024 Implantable loop recorder present 01/10/2024 Vasovagal syncope 01/10/2024 Type 2 diabetes mellitus wit h hemoglobin A1c goal of less than 8.0% 03/19/2009 Overview: Per Diabetes Taxonomy. ICD-10 update of inactive term Hypothyroidism HTN, goal below 140/90 Overview: Modified per HTN protocol #16. documented as of this encounter (statuses as of 01/16/2024) Resolved Problems Problem Noted Date Diagnosed Date Resolved Date Stable angina 01/10/2024 Type 2 diabetes mellitus wit h hemoglobin A1c goal of less than 7.0% 03/19/2009 Overview: Per Diabetes Taxonomy. ICD-10 update of inactive term Diverticulitis of colon 12/21 documented as of this encounter (statuses as of 01/16/2024) Immunizations Name Administration Dates Next Due Pneumococcal Polysaccharide PPV23 (Pneumovax) TD - Tetanus/Diptheria (ADULT) 05/22/2002 documented as of this encounter Social History Tobacco Use Types Packs/Day Years Used Date Smoking Tobacco: Never Alcohol Use Standard Drinks/Week Comments No 0 (1 standard drink = 0.6 oz pur e alcohol) Utilities Answer Date Recorded Do you have trouble paying y our heating, water, or electric bill? (Adult - for ages 18 years and over) Not on file 11/07/2023 Is your family able to pay t he heat, water, or electric bill? (Household - for ages 0-17 years) Not on file 11/07/2023 Does your family have access to good internet? (Household - for ages 0-17 years) Not on file 11/07/2023 Social Connections Answer Date Recorded How often do you feel lonely or isolated from those around you? (Adult - for ages 18 years and over) Not on file 11/07/2023 Sex and Gender Information Value Date Recorded Sex Assigned at Not on file Gender Identity Not on file Sexual Orientation Not on file Job Start Date Occupation Industry Not on file Not on file Not on file documented as of this encounter Plan of Treatment Health Maintenance Due Date Last Done Comments DXA Scan 1943 Depression Screening 1955 Diabetic Eye Exam 1961 Zoster Vaccines (1 of 2) 1993 Hepatitis B Vaccine (1 of 3 - Risk 3-dose series) 2003 HbA1c 07/24/2008 01/25/2008 Albumin/Creatinine Ratio 01/24/2009 01/25/2008 Diabetic Foot Exam 01/24/2009 01/25/2008 TSH 01/24/2009 01/25/2008 COVID-19 Vaccine ( season) 2023 03/07/2023, 03/11/2022, 04/30/2021, Additional history exists *SPIROMETRY ONCE FOR ASTHMA-ADULT 01/12/2024 Influenza Vaccine (FLU shot) (#1) 2024 03/07/2023, 03/03/2022, 03/02/2021, Additional history exists GFR 01/11/2025 01/12/2024, 01/25/2008 DTap/Tdap Vaccines (2 - Td or Tdap) 12/25/2033 12/26/2023, 05/22/2002 Pneumococcal Vaccine: 65+ Years Completed 01/19/2017, 04/21/2014, 05/22/2004 HPV (Gardasil) Vaccine Aged Out No lo nger eligible based on patient's age to complete this topic MENINGOCOCCAL (MENACTRA/MENVEO) Aged Out No longer eligible based on patient's age to complete this topic documented as of this encounter Medical Devices Not on filedocumented as of this encounter Visit Diagnoses Diagnosis Closed trimalleolar fracture of right ankle with routine healing, subsequent encounter- Primary Chronic cough Cough Moderate dementia with mood disturbance, unspecified dementia type (HCC) Type 2 diabetes mellitus with hemoglobin A1c goal of less than 8.0% (HCC) documented in this encounter
--- OUTSIDE RECORDS SUMMARY | 2024-01-17 23:27 | External Medical Summary | Continuity Of Care Document ---
Author Name Unknown Address [address] [place] [address] Organization [facility] ( ) Care Team Providers Care Show Worker Name Role Phone Lin Mckeon Primary Care Provider [phone] Allergies Allergy Reaction Start Date End Date Status BEE VENOM PROTEIN (HONEY BEE) Swelling Facial/tongue/throat/hands/fa ce/feet Active CEFAZOLIN Difficulty breathing Acti ve ADHESIVE Hives Active AZITHROMYCIN Active CANDESARTAN Cough Active ENALAPRIL Cough Active LISINOPRIL Cough Active MORPHINE Disorientation Active Problems Code Description Start Date End Date Status W19.XXXA Unspecified fall, initial encounter 01/05/2024 Active M25.571 Pain in right ankle and joints of right foot Active E86.0 Dehydration 01/05/2024 Active R26.89 Other abnormalities of gait and mobility 2023 Active S82.851D Displaced trimalleol ar fracture of right lower leg, subsequent encounter for closed fracture with routine healing 01/05/2024 Active D64.9 Anemia, unspecified 01/05/2024 Activ e K21.9 Gastro-esophageal re flux disease without esophagitis 01/05/2024 Active E11.9 Type 2 diabetes mellitus without complications 01/05/2024 Active I10. Essential (primary) hypertension 01/05/2024 Active J45.909 Unspecified asthma, uncomplicated 01/05/20240000 Active N39.0 Urinary tract infection, site not specified Active S82.401D Unspecified fracture of shaft of right fibula, subsequent encounter for closed fracture with routine healing 01/05/2024 Active VITAL SIGNS Date Time Diastolic blood pressure Systolic blood pressure Body height Body weight Temperature SpO2 Blood Sugar Pulse Respirations 816 64638 8 74.00 mm[Hg] - Sitting 129.00 mm[Hg] - Sitting 151.00 NI 100.70 Oral 93.00 % 66.00/ min 18.00/min 51817 817 43381 3 148[place]00 [place] [address] 817 55763 1 74.00 mm[Hg] - Lying Down 129.00 mm[Hg] - Lying Down 148.00 NI 100.70 Ear 66.00/ min 18.00/min 99099 817 28346 0 35297 817 26635 7 22504 817 60276 9 74.00 mm[Hg] - Sitting 139.00 mm[Hg] - Sitting 98.40 X-Other 95.00 % 59.00/ min 18.00/min 42945 818 84525 9 72.00 mm[Hg] - Sitting 122.00 mm[Hg] - Sitting 98.80 Ear 93.00 % 64.00/ min 18.00/min 96983 819 38414 3 72.00 mm[Hg] - Sitting 131.00 mm[Hg] - Sitting 99.20 Ear 98.00 % 73.00/ min 20.00/min 78531 820 08749 0 78.00 mm[Hg] - Sitting 130.00 mm[Hg] - Sitting 98.70 Ear 98.00 % 73.00/ min 18.00/min 14884 821 54576 6 80.00 mm[Hg] - Sitting 150.00 mm[Hg] - Sitting 98.20 Ear 95.00 % 89.00/ min 18.00/min 10081 822 77605 8 64 [place] [address] 823 76543 0 70.00 mm[Hg] - Sitting 137.00 mm[Hg] - Sitting 98.80 X-Other 93.00 % 65.00/ min 18.00/min 08413 825 83709 5 70.00 mm[Hg] - Sitting 124.00 mm[Hg] - Sitting 98.60 Oral 97.00 % 64.00/ min 16.00/min Immunizations Vaccine Date Status COVID-19 08/31/2020 Completed COVID-19 09/28/2020 Completed COVID-19 04/30/2021 Completed COVID-19 03/11/2022 Completed COVID-19 03/07/2023 Completed Influenza 03/07/2023 Completed (PCV13)Pneumococcal 04/21/2014 Completed (PPSV23)Pneumococcal 01/19/2017 Completed TDaP 12/26/2023 Completed
--- OUTSIDE RECORDS SUMMARY | 2024-01-17 23:27 | External Medical Summary | Summary of Care ---
Author Name Unknown Organization [facility] Address [address] [place] [address] Phone [phone] Care Team Providers Care Health Officer Name Role Phone Unavailable Primary Care Provider Unavailabl e Encounter Details Date Type Department Care Team (Late st Contact Info) Description 01/16/2024 Orders Only Lab [facility] [address] [place] [address] [address] Mckeon MD [address] [place] [address] [place] [address] Hyponatremia* Allergies Active Allergy Reactions Criticality Noted Date [...] of GI bleed 01/10/2024 No transfusions per cheondoism beliefs 01/10/2024 Chronic cough 01/10/2024 Implantable loop [...] as of this encounter Plan of Treatment Upcoming Encounters Date Type Department Care Team (Late st Contact Info) Description 01/17/2024 5:10 AM EDT Laboratory Lab [facility] [address] [place] [address] [place] [address] Scheduled Orders Name Type Priority Associated Diagnoses Orde r Schedule BASIC METABOLIC PANEL Lab Routine Hyponatremia Expected: 01/17/2024, Expires: 01/15/2025 Health Maintenance Due Date Last Done Comments [...] as of this encounter Visit Diagnoses Diagnosis Hyponatremia- Primary Hyposmolality and/or hyponatremia documented in this encounter
--- OUTSIDE RECORDS SUMMARY | 2024-01-17 23:27 | External Medical Summary ---
Author Name Unknown Address Unknown Organization [facility] [address] [place] [address] Laboratory Report Ordering Provider Test Date Status PHILIP MADISON 01/12/2024 05:35:00 Final Observation Date Value Abnormality Reference (Units ) Status SYNC LEUKOCYTES IN BLOOD BY AUTOMATED COUNT 01/12/2024 05:35:00 4.93 4.00-10.80 (K/uL) Final Segs 01/12/2024 05:35:00 55.4 40.0-75.0 (%) Final Lymphs % 01/12/2024 05:35:00 27.6 18.0-42.0 (%) Final Monos 01/12/2024 05:35:00 9.9 1.0-11.0 (%) Final Eosinophils 01/12/2024 05:35:00 6.9 Above high normal 0.0-6.0 (%) Final Basos 01/12/2024 05:35:00 0.2 0.0-2.0 (%) Final Absolute Segs 01/12/2024 05:35:00 2.73 1.80-7.70 (K/uL) Final Lymphs, absolute 01/12/2024 05:35:00 1.36 1.00-4.80 (K/ul) Final Monos, Abs 01/12/2024 05:35:00 0.49 0.00-1.10 (K/uL) Final Eos, Abs 01/12/2024 05:35:00 0.34 0.00-0.70 (K/uL) Final Basos, Abs 01/12/2024 05:35:00 0.01 0.00-0.20 (K/uL) Final Performing Location [facility] [address] [place] [address]
--- OUTSIDE RECORDS SUMMARY | 2024-01-17 23:27 | External Medical Summary ---
Author Name Unknown Address Unknown Organization [facility] [address] [place] [id number] Laboratory Report Ordering Provider Test Date Status PHILIP MADISON 01/17/2024 05:48:00 Final Observation Date Value Abnormality Reference (Units ) Status BUN 01/17/2024 05:48:00 16 6-20 (mg/dL) Final Creatinine 01/17/2024 05:48:00 1.1 Above high normal 0.5-1.0 (mg/dL) Final Glomerular filtration rate/1.73 sq M.predicted [Volume Rate/Area] in Serum, Plasma or Blood by Creatinine-based formula (CKD-EPI) 01/17/2024 05:48:00 53 Below low normal >=60 (mL/min) Final eGFR is calculated based on the CKD-EPI 2020 equation. Sodium 01/17/2024 05:48:00 119 Below lower panic li mits 135-146 (mmol/L) Final Results rechecked Potassium 01/17/2024 05:48:00 4.8 3.5-5.1 (m mol/L) Final Cl 01/17/2024 05:48:00 83 Below low normal 98- 107 (mmol/L) Final Results rechecked CO2 01/17/2024 05:48:00 27 22-32 (mmo l/L) Final Anion gap 01/17/2024 05:48:00 9 7-15 (mmol /L) Final Glucose 01/17/2024 05:48:00 94 70-120 (mg /dL) Final Calcium 01/17/2024 05:48:00 9.3 8.4-10.2 ( mg/dL) Final Performing Location [facility] [address] [place] [address]
--- OUTSIDE RECORDS SUMMARY | 2024-01-17 23:27 | External Medical Summary | Continuity Of Care Document ---
Author Name Unknown Address [address] [place] [address] Organization [facility] ( ) Care Team Providers Care Band Scroll Saw Operator Name Role Phone Lin Mckeon Primary Care Provider [phone] Allergies Allergy Reaction Start Date End Date [...] Temperature SpO2 Blood Sugar Pulse Respirations 816 11348 8 74.00 mm[Hg] - Sitting 129.00 mm[Hg] - Sitting 151.00 NI 100.70 Oral 93.00 % 66.00/ min 18.00/min 07352 817 10914 3 [place]00 [place] [address] 817 27003 1 74.00 mm[Hg] - Lying Down 129.00 mm[Hg] - Lying Down 148.00 NI 100.70 Ear 66.00/ min 18.00/min 91308 817 73177 0 83017 817 18952 7 88746 817 61019 9 74.00 mm[Hg] - Sitting 139.00 mm[Hg] - Sitting 98.40 X-Other 95.00 % 59.00/ min 18.00/min 73273 818 82658 9 72.00 mm[Hg] - Sitting 122.00 mm[Hg] - Sitting 98.80 Ear 93.00 % 64.00/ min 18.00/min 40319 819 11574 3 72.00 mm[Hg] - Sitting 131.00 mm[Hg] - Sitting 99.20 Ear 98.00 % 73.00/ min 20.00/min 00800 820 22653 0 78.00 mm[Hg] - Sitting 130.00 mm[Hg] - Sitting 98.70 Ear 98.00 % 73.00/ min 18.00/min 40352 821 39567 6 80.00 mm[Hg] - Sitting 150.00 mm[Hg] - Sitting 98.20 Ear 95.00 % 89.00/ min 18.00/min 63240 822 12510 8 64 [place] [address] 823 88750 0 70.00 mm[Hg] - Sitting 137.00 mm[Hg] - Sitting 98.80 X-Other 93.00 % 65.00/ min 18.00/min 23622 825 19995 5 70.00 mm[Hg] - Sitting 124.00 mm[Hg] - Sitting 98.60 Oral 97.00 % 64.00/ min 16.00/min Immunizations Vaccine Date Status COVID-19 08/31/2020 Completed COVID-19 09/28/2020 Completed COVID-19 04/30/2021 Completed COVID-19 03/11/2022 Completed COVID-19 03/07/2023 Completed Influenza 03/07/2023 Completed (PCV13)Pneumococcal 04/21/2014 Completed (PPSV23)Pneumococcal 01/19/2017 Completed TDaP 12/26/2023 Completed
--- OUTSIDE RECORDS SUMMARY | 2024-01-17 23:27 | External Medical Summary | Summary of Care ---
Author Name Unknown Organization [facility] Address [address] [place] [address] Phone [phone] Care Team Providers Care Training Analyst Name Role Phone Unavailable Primary Care Provider Unavailabl e Reason for Visit * Reason Onset Date Comments Skilled Visit 01/15/2024 Encounter Details Date Type Department Care Team (Latest Contact Info) Description 01/15/2024 1:30 PM EDT Custodial Visit [facility] [address] [place] [address] Denise Brice PA-C [address] [place] [address] Closed trimalleolar fracture of right ankle with routine healing, subsequent encounter*; Cirrhosis of liver without ascites, unspecified hepatic cirrhosis type (HCC); Moderate dementia with mood disturbance, unspecified dementia type (HCC); Type 2 diabetes mellitus with hemoglobin A1c goal of less than 8.0% (HCC); Slow transit constipation; Hyponatremia Allergies Active Allergy Reactions Criticality Noted Date Comments Bee Stings 01/25/2008 Morphine 01/24/2001 documented as of this encounter (statuses as of 01/15/2024) Medications Medication Sig Dispensed Refills Start Date [...] as of this encounter (statuses as of 01/15/2024) Active Problems Problem Noted Date Diagnosed Date DNR (do not resuscitate) 01/15/2024 Moderate dementia with mood disturbance 01/10/20 Closed trimalleolar fracture of right ankle 12/21 Iron deficiency anemia 01/10/2024 Cirrhosis of liver without ascites 01/10/2024 Liver mass 01/10/2024 Gastroesophageal reflux disease 01/10/2024 Moderate persistent asthma without complication 01/10/2024 History of GI bleed 01/10/2024 No transfusions per amish beliefs 01/10/2024 Chronic cough 01/10/2024 Implantable loop recorder present 01/10/2024 Vasovagal syncope 01/10/2024 Type 2 diabetes mellitus wit h hemoglobin A1c goal of less than 8.0% 03/19/2009 Overview: Per Diabetes Taxonomy. ICD-10 update of inactive term Hypothyroidism HTN, goal below 140/90 Overview: Modified per HTN protocol #16. documented as of this encounter (statuses as of 01/15/2024) Resolved Problems Problem Noted Date Diagnosed Date Resolved Date Stable angina 01/10/2024 Type 2 diabetes mellitus wit h hemoglobin A1c goal of less than 7.0% 03/19/2009 Overview: Per Diabetes Taxonomy. ICD-10 update of inactive term Diverticulitis of colon 12/21 documented as of this encounter (statuses as of 01/15/2024) Immunizations Name Administration Dates Next Due Pneumococcal [...] Additional history exists GFR 01/11/2025 01/12/2024, 01/25/2008 DTaP,Tdap,and Td Vaccines (2 - Td or Tdap) 12/25/2033 [...] ankle with routine healing, subsequent encounter- Primary Cirrhosis of liver without ascites, unspecified hepatic cirrhosis type (HCC) Moderate dementia with mood disturbance, unspecified dementia type (HCC) Type 2 diabetes mellitus with hemoglobin A1c goal of less than 8.0% (HCC) Slow transit constipation Hyponatremia Hyposmolality and/or hyponatremia documented in this encounter
--- OUTSIDE RECORDS SUMMARY | 2024-01-17 23:28 | External Medical Summary | Continuity Of Care Document ---
Author Name Unknown Address [address] [place] [address] Organization [facility] ( ) Care Team Providers Care Enlisted Advisor Name Role Phone Lin Mckeon Primary Care Provider [phone] Allergies Allergy Reaction Start Date End Date [...] hypertension 01/05/2024 Active J45.909 Unspecified asthma, uncomplicated 01/05/2024 00 / Active VITAL SIGNS Date Time Diastolic blood pressure Systolic blood pressure Body height Body weight Temperature SpO2 Blood Sugar Pulse Respirations 79861 816 04989 8 74.00 mm[Hg] - Sitting 129.00 mm[Hg] - Sitting 151.00 NI 100.70 Oral 93.00 % 66.00/ min 18.00/min 58794 817 64259 3 148.00 NI 79006 817 79375 1 74.00 mm[Hg] - Lying Down 129.00 mm[Hg] - Lying Down 148.00 NI 100.70 Ear 66.00/ min 18.00/min 34717 817 33408 0 54019 817 52856 7 25347 817 76420 9 74.00 mm[Hg] - Sitting 139.00 mm[Hg] - Sitting 98.40 X-Other 95.00 % 59.00/ min 18.00/min 61448 818 65474 9 72.00 mm[Hg] - Sitting 122.00 mm[Hg] - Sitting 98.80 Ear 93.00 % 64.00/ min 18.00/min Immunizations Vaccine Date Status COVID-19 08/31/2020 Completed COVID-19 09/28/2020 Completed COVID-19 04/30/2021 Completed COVID-19 03/11/2022 Completed COVID-19 03/07/2023 Completed Influenza 03/07/2023 Completed (PCV13)Pneumococcal 04/21/2014 Completed (PPSV23)Pneumococcal 01/19/2017 Completed TDaP 12/26/2023 Completed
--- OUTSIDE RECORDS SUMMARY | 2024-01-17 23:28 | External Medical Summary ---
Author Name Unknown Address Unknown Organization [facility] [address] [place] [address] Laboratory Report Ordering Provider Test Date Status PHILIP MADISON 01/12/2024 05:35:00 Final Observation Date Value Abnormality Reference (Units ) Status Nucleated erythrocytes/100 leukocytes [Ratio] in Blood by Automated count 01/12/2024 05:35:00 Final Performing Location [facility] [address] [place] [address]
--- OUTSIDE RECORDS SUMMARY | 2024-01-17 23:28 | External Medical Summary | Continuity Of Care Document ---
Author Name Unknown Address [address] [place] [address] Organization [facility] ( ) Care Team Providers Care Anatomic Pathology Manager Name Role Phone Lin Mckeon Primary Care Provider [phone] Allergies Allergy Reaction Start Date End Date Status BEE VENOM PROTEIN (HONEY BEE) Swelling Facial/tongue/throat/hands/fa ce/feet Active CEFAZOLIN Difficulty breathing Acti ve ADHESIVE Hives Active AZITHROMYCIN Active CANDESARTAN Cough Active ENALAPRIL Cough Active LISINOPRIL Cough Active MORPHINE Disorientation Active VITAL SIGNS Date Time Diastolic blood pressure Systolic blood pressure Body height Body weight Temperature SpO2 Blood Sugar Pulse Respirations 92549 816 92532 8 74.00 mm[Hg] - Sitting 129.00 mm[Hg] - Sitting 151.00 NI 100.70 Oral 93.00 % 66.00/ min 18.00/min 06110 817 47644 3 148.00 NI 39546 817 37330 1 74.00 mm[Hg] - Lying Down 129.00 mm[Hg] - Lying Down 148.00 NI 100.70 Ear 66.00/ min 18.00/min 39480 817 73976 0 69774 817 61838 7 48673 817 34900 9 74.00 mm[Hg] - Sitting 139.00 mm[Hg] - Sitting 98.40 X-Other 95.00 % 59.00/ min 18.00/min 28804 818 90534 9 72.00 mm[Hg] - Sitting 122.00 mm[Hg] - Sitting 98.80 Ear 93.00 % 64.00/ min 18.00/min Immunizations Vaccine Date Status COVID-19 08/31/2020 Completed COVID-19 09/28/2020 Completed COVID-19 04/30/2021 Completed COVID-19 03/11/2022 Completed COVID-19 03/07/2023 Completed Influenza 03/07/2023 Completed (PCV13)Pneumococcal 04/21/2014 Completed (PPSV23)Pneumococcal 01/19/2017 Completed TDaP 12/26/2023 Completed
--- OUTSIDE RECORDS SUMMARY | 2024-01-17 23:28 | External Medical Summary | Continuity Of Care Document ---
Author Name Unknown Address [address] [place] [address] Organization [facility] ( ) Care Team Providers Care Manager Recovery Name Role Phone Lin Mckeon Primary Care Provider [phone] Allergies Allergy Reaction Start Date End Date [...] abnormalities of gait and mobility 2023 Active VITAL SIGNS Date Time Diastolic blood pressure Systolic blood pressure Body height Body weight Temperature SpO2 Blood Sugar Pulse Respirations 816 46719 8 74.00 mm[Hg] - Sitting 129.00 mm[Hg] - Sitting 151.00 NI 100.70 Oral 93.00 % 66.00/ min 18.00/min 69625 817 29264 3 148.00 NI 41915 817 89191 1 74.00 mm[Hg] - Lying Down 129.00 mm[Hg] - Lying Down 148.00 NI 100.70 Ear 66.00/ min 18.00/min 817 71744 0 817 72595 7 817 14351 9 74.00 mm[Hg] - Sitting 139.00 mm[Hg] - Sitting 98.40 X-Other 95.00 % 59.00/ min 18.00/min 14319 818 94418 9 72.00 mm[Hg] - Sitting 122.00 mm[Hg] - Sitting 98.80 Ear 93.00 % 64.00/ min 18.00/min Immunizations Vaccine Date Status COVID-19 08/31/2020 Completed COVID-19 09/28/2020 Completed COVID-19 04/30/2021 Completed COVID-19 03/11/2022 Completed COVID-19 03/07/2023 Completed Influenza 03/07/2023 Completed (PCV13)Pneumococcal 04/21/2014 Completed (PPSV23)Pneumococcal 01/19/2017 Completed TDaP 12/26/2023 Completed
--- OUTSIDE RECORDS SUMMARY | 2024-01-17 23:28 | External Medical Summary | Continuity Of Care Document ---
Author Name Unknown Address [address] [place] [address] Organization [facility] ( ) Care Team Providers Care Vice President Planning Name Role Phone Lin Mckeon Primary Care Provider [phone] Allergies Allergy Reaction Start Date End Date [...] weight Temperature SpO2 Blood Sugar Pulse Respirations 21534 816 56947 8 74.00 mm[Hg] - Sitting 129.00 mm[Hg] - Sitting 151.00 NI 100.70 Oral 93.00 % 66.00/ min 18.00/min 45071 817 90945 3 148.00 [place] 47924 817 62543 1 74.00 mm[Hg] - Lying Down 129.00 mm[Hg] - Lying Down 148.00 NI 100.70 Ear 66.00/ min 18.00/min 27213 817 54495 0 02566 817 95421 7 19579 817 66167 9 74.00 mm[Hg] - Sitting 139.00 mm[Hg] - Sitting 98.40 X-Other 95.00 % 59.00/ min 18.00/min 36008 818 95708 9 72.00 mm[Hg] - Sitting 122.00 mm[Hg] - Sitting 98.80 Ear 93.00 % 64.00/ min 18.00/min 33012 819 88713 3 72.00 mm[Hg] - Sitting 131.00 mm[Hg] - Sitting 99.20 Ear 98.00 % 73.00/ min 20.00/min 70044 820 27357 0 78.00 mm[Hg] - Sitting 130.00 mm[Hg] - Sitting 98.70 Ear 98.00 % 73.00/ min 18.00/min 68257 821 12125 6 80.00 mm[Hg] - Sitting 150.00 mm[Hg] - Sitting 98.20 Ear 95.00 % 89.00/ min 18.00/min Immunizations Vaccine Date Status COVID-19 08/31/2020 Completed COVID-19 09/28/2020 Completed COVID-19 04/30/2021 Completed COVID-19 03/11/2022 Completed COVID-19 03/07/2023 Completed Influenza 03/07/2023 Completed (PCV13)Pneumococcal 04/21/2014 Completed (PPSV23)Pneumococcal 01/19/2017 Completed TDaP 12/26/2023 Completed
--- OUTSIDE RECORDS SUMMARY | 2024-01-17 23:28 | External Medical Summary | Continuity Of Care Document ---
Author Name Unknown Address [address] [place] [address] Organization [facility] ( ) Care Team Providers Care Informatica Developer Name Role Phone Lin Mckeon Primary Care Provider [phone] Allergies Allergy Reaction Start Date End Date Status BEE VENOM PROTEIN (HONEY BEE) Swelling Facial/tongue/throat/hands/fa ce/feet Active CEFAZOLIN Difficulty breathing Acti ve ADHESIVE Hives Active AZITHROMYCIN Active CANDESARTAN Cough Active ENALAPRIL Cough Active LISINOPRIL Cough Active MORPHINE Disorientation Active VITAL SIGNS Date Time Diastolic blood pressure Systolic blood pressure Body height Body weight Temperature SpO2 Blood Sugar Pulse Respirations 01685 816 85042 8 74.00 mm[Hg] - Sitting 129.00 mm[Hg] - Sitting 151.00 NI 100.70 Oral 93.00 % 66.00/ min 18.00/min Immunizations Vaccine Date Status COVID-19 08/31/2020 Completed COVID-19 09/28/2020 Completed COVID-19 04/30/2021 Completed COVID-19 05/11/2022 Completed COVID-19 03/07/2023 Completed Influenza 03/07/2023 Completed (PCV13)Pneumococcal 04/22/2014 Completed
--- OUTSIDE RECORDS SUMMARY | 2024-01-17 23:28 | External Medical Summary ---
Author Name Unknown Address Unknown Organization [facility] [address] [place] [address] Laboratory Report Ordering Provider Test Date Status PHILIP MADISON 01/12/2024 05:35:00 Final Observation Date Value Abnormality Reference (Units ) Status WBC, Total 01/12/2024 05:35:00 4.93 4.00-10.8 0 (K/uL) Final RBC 01/12/2024 05:35:00 3.60 3.85-5.15 (M/uL) Final Hemoglobin 01/12/2024 05:35:00 9.4 Below low normal 12 .0-15.3 (g/dL) Final HCT 01/12/2024 05:35:00 29.5 Below low normal 36. 0-45.2 (%) Final MCV 01/12/2024 05:35:00 81.9 81.5-97.5 (fL) Final MCH 01/12/2024 05:35:00 26.1 27.0-34.0 (pg) Final MCHC 01/12/2024 05:35:00 31.9 32.0-36.0 (g/dL) Final RDW 01/12/2024 05:35:00 19.7 11.5-15.5 (%) Final Platelets 01/12/2024 05:35:00 188 140-400 (K /uL) Final MPV 01/12/2024 05:35:00 10.4 6.6-11.1 ( fL) Final Performing Location [facility] [address] [place] [address]
--- OUTSIDE RECORDS SUMMARY | 2024-01-17 23:28 | External Medical Summary | Continuity Of Care Document ---
Author Name Unknown Address [address] [place] [address] Organization [facility] ( ) Care Team Providers Care Plasterer Maintenance Name Role Phone Lin Mckeon Primary Care Provider [phone] Allergies Allergy Reaction Start Date End Date [...] weight Temperature SpO2 Blood Sugar Pulse Respirations 27786 816 66295 8 74.00 mm[Hg] - Sitting 129.00 mm[Hg] - Sitting 151.00 NI 100.70 Oral 93.00 % 66.00/ min 18.00/min 05665 817 99517 3 148.00 [place] [address] 817 55046 1 74.00 mm[Hg] - Lying Down 129.00 mm[Hg] - Lying Down 148.00 NI 100.70 Ear 66.00/ min 18.00/min 04462 817 32368 0 50136 817 13369 7 91313 817 04895 9 74.00 mm[Hg] - Sitting 139.00 mm[Hg] - Sitting 98.40 X-Other 95.00 % 59.00/ min 18.00/min 71094 818 30023 9 72.00 mm[Hg] - Sitting 122.00 mm[Hg] - Sitting 98.80 Ear 93.00 % 64.00/ min 18.00/min Immunizations Vaccine Date Status COVID-19 08/31/2020 Completed COVID-19 09/28/2020 Completed COVID-19 04/30/2021 Completed COVID-19 03/11/2022 Completed COVID-19 03/07/2023 Completed Influenza 03/07/2023 Completed (PCV13)Pneumococcal 04/21/2014 Completed (PPSV23)Pneumococcal 01/19/2017 Completed TDaP 12/26/2023 Completed
--- OUTSIDE RECORDS SUMMARY | 2024-01-17 23:28 | External Medical Summary | Continuity Of Care Document ---
Author Name Unknown Address [address] [place] [address] Organization [facility] ( ) Care Team Providers Care Stockfeed Miller Name Role Phone Lin Mckeon Primary Care Provider [phone] Allergies Allergy Reaction Start Date End Date [...] weight Temperature SpO2 Blood Sugar Pulse Respirations 45860 816 77733 8 74.00 mm[Hg] - Sitting 129.00 mm[Hg] - Sitting 151.00 NI 100.70 Oral 93.00 % 66.00/ min 18.00/min 28733 817 94613 3 148.00 NI 71793 817 20556 1 74.00 mm[Hg] - Lying Down 129.00 mm[Hg] - Lying Down 148.00 NI 100.70 Ear 66.00/ min 18.00/min 83350 817 89074 0 76135 817 86027 7 37374 817 22757 9 74.00 mm[Hg] - Sitting 139.00 mm[Hg] - Sitting 98.40 X-Other 95.00 % 59.00/ min 18.00/min 14405 818 66567 9 72.00 mm[Hg] - Sitting 122.00 mm[Hg] - Sitting 98.80 Ear 93.00 % 64.00/ min 18.00/min 40026 819 26345 3 72.00 mm[Hg] - Sitting 131.00 mm[Hg] - Sitting 99.20 Ear 98.00 % 73.00/ min 20.00/min 22548 820 13574 0 78.00 mm[Hg] - Sitting 130.00 mm[Hg] - Sitting 98.70 Ear 98.00 % 73.00/ min 18.00/min 69216 821 98183 6 80.00 mm[Hg] - Sitting 150.00 mm[Hg] - Sitting 98.20 Ear 95.00 % 89.00/ min 18.00/min Immunizations Vaccine Date Status COVID-19 08/31/2020 Completed COVID-19 09/28/2020 Completed COVID-19 04/30/2021 Completed COVID-19 03/11/2022 Completed COVID-19 03/07/2023 Completed Influenza 03/07/2023 Completed (PCV13)Pneumococcal 04/21/2014 Completed (PPSV23)Pneumococcal 01/19/2017 Completed TDaP 12/26/2023 Completed
--- OUTSIDE RECORDS SUMMARY | 2024-01-17 23:28 | External Medical Summary | Continuity Of Care Document ---
Author Name Unknown Address [address] [place] [address] Organization [facility] ( ) Care Team Providers Care Case Worker Name Role Phone Lin Mckeon Primary Care Provider [phone] Allergies Allergy Reaction Start Date End Date [...] weight Temperature SpO2 Blood Sugar Pulse Respirations 14080 816 48824 8 74.00 mm[Hg] - Sitting 129.00 mm[Hg] - Sitting 151.00 NI 100.70 Oral 93.00 % 66.00/ min 18.00/min 74370 817 18858 3 148.00 NI [address]2569 817 15385 1 74.00 mm[Hg] - Lying Down 129.00 mm[Hg] - Lying Down 148.00 NI 100.70 Ear 66.00/ min 18.00/min 56479 817 42622 0 09891 817 04526 7 00580 817 20058 9 74.00 mm[Hg] - Sitting 139.00 mm[Hg] - Sitting 98.40 X-Other 95.00 % 59.00/ min 18.00/min 23069 818 06932 9 72.00 mm[Hg] - Sitting 122.00 mm[Hg] - Sitting 98.80 Ear 93.00 % 64.00/ min 18.00/min Immunizations Vaccine Date Status COVID-19 08/31/2020 Completed COVID-19 09/28/2020 Completed COVID-19 04/30/2021 Completed COVID-19 03/11/2022 Completed COVID-19 03/07/2023 Completed Influenza 03/07/2023 Completed (PCV13)Pneumococcal 04/21/2014 Completed (PPSV23)Pneumococcal 01/19/2017 Completed TDaP 12/26/2023 Completed
--- OUTSIDE RECORDS SUMMARY | 2024-01-17 23:28 | External Medical Summary | Summary of Care ---
Author Name Unknown Organization [facility] Address [address] [place] [address] Phone [phone] Care Team Providers Care Mail Order Clerk Name Role Phone Unavailable Primary Care Provider Unavailabl e Encounter Details Date Type Department Care Team (Late st Contact Info) Description 01/11/2024 Orders Only Lab [facility] [address] [facility] [facility] [place] [address] Lin Mckeon MD [address] [place] [address] [place] [address] Anemia*; Cirrhosis of liver (HCC) Allergies Active Allergy Reactions Criticality Noted Date Comments Bee Stings 01/25/2008 Morphine 01/24/2001 documented as of this encounter (statuses as of 01/11/2024) Medications Medication Sig Dispensed Refills Start Date [...] as of this encounter (statuses as of 01/11/2024) Active Problems Problem Noted Date Diagnosed Date Moderate dementia with mood disturbance 01/10/20 24 Closed trimalleolar fracture of right ankle 12/21 Iron deficiency anemia 01/10/2024 Cirrhosis of liver without ascites 01/10/2024 Liver mass 01/10/2024 Gastroesophageal reflux disease 01/10/2024 Moderate persistent asthma without complication 01/10/2024 History of GI bleed 01/10/2024 No transfusions per uatsdin beliefs 01/10/2024 Chronic cough 01/10/2024 Implantable loop recorder present 01/10/2024 Vasovagal syncope 01/10/2024 Type 2 diabetes mellitus wit h hemoglobin A1c goal of less than 8.0% 03/19/2009 Overview: Per Diabetes Taxonomy. ICD-10 update of inactive term Hypothyroidism HTN, goal below 140/90 Overview: Modified per HTN protocol #16. documented as of this encounter (statuses as of 01/11/2024) Resolved Problems Problem Noted Date Diagnosed Date Resolved Date Stable angina 01/10/2024 Type 2 diabetes mellitus wit h hemoglobin A1c goal of less than 7.0% 03/19/2009 Overview: Per Diabetes Taxonomy. ICD-10 update of inactive term Diverticulitis of colon 12/21 documented as of this encounter (statuses as of 01/11/2024) Immunizations Name Administration Dates Next Due Pneumococcal [...] Care Team (Late st Contact Info) Description 01/12/2024 5:10 AM EDT Laboratory Lab [facility] [address] [employer] [facility] [place] [address] [place] [address] Scheduled Orders Name Type Priority Associated Diagnoses Orde r Schedule CBC WITH WBC DIFFERENTIAL Lab Routine Anemia Cirrhosis of liver (HCC) Expected: 01/12/2024, Expires: 01/10/2025 COMPREHENSIVE METABOLIC PANEL Lab Routine Anemia Cirrhosis of liver (HCC) Expected: 01/12/2024, Expires: 01/10/2025 Health Maintenance Due Date Last Done Comments DXA Scan 1943 Depression Screening 1955 Diabetic Eye Exam 1961 Zoster Vaccines (1 of 2) 1993 Hepatitis B Vaccine (1 of 3 - Risk 3-dose series) 2003 HbA1c 07/24/2008 01/25/2008 Albumin/Creatinine Ratio 01/24/2009 01/25/2008 Diabetic Foot Exam 01/24/2009 01/25/2008 GFR 01/24/2009 01/25/2008 TSH 01/24/2009 01/25/2008 COVID-19 Vaccine ( season) 2023 03/07/2023, 03/11/2022, 04/30/2021, Additional history exists Influenza Vaccine (FLU shot) (#1) 2024 03/07/2023, 03/03/2022, 03/02/2021, Additional history exists DTaP,Tdap,and Td Vaccines (2 - Td or [...] as of this encounter Visit Diagnoses Diagnosis Anemia- Primary Anemia, unspecified Cirrhosis of liver (HCC) Cirrhosis of liver without mention of alcohol documented in this encounter
--- OUTSIDE RECORDS SUMMARY | 2024-01-17 23:28 | External Medical Summary ---
Author Name Unknown Address Unknown Organization [facility] [address] [place] [address] Laboratory Report Ordering Provider Test Date Status PHILIP MADISON 01/12/2024 05:35:00 Final Observation Date Value Abnormality Reference (Units ) Status BUN 01/12/2024 05:35:00 12 6-20 (mg/dL) Final Creatinine 01/12/2024 05:35:00 0.9 0.5-1.0 (mg/dL) Final Glomerular filtration rate/1.73 sq M.predicted [Volume Rate/Area] in Serum, Plasma or Blood by Creatinine-based formula (CKD-EPI) 01/12/2024 05:35:00 62 >=60 (mL/min) Final eGFR is calculated based on the CKD-EPI 2020 equation. Sodium 01/12/2024 05:35:00 126 Below low normal 135 -146 (mmol/L) Final Potassium 01/12/2024 05:35:00 4.5 3.5-5.1 (m mol/L) Final Cl 01/12/2024 05:35:00 88 Below low normal 98- 107 (mmol/L) Final CO2 01/12/2024 05:35:00 25 22-32 (mmo l/L) Final Anion gap 01/12/2024 05:35:00 13 7-15 (mmol /L) Final Glucose 01/12/2024 05:35:00 117 70-120 (mg /dL) Final Albumin 01/12/2024 05:35:00 3.8 3.8-5.0 (g /dL) Final AST (Aspartate aminotransferase) 01/12/2024 05:35:00 25 10-35 (U/L) Fin al Alk Phos 01/12/2024 05:35:00 89 35-130 (U/ L) Final Bilirubin, Total 01/12/2024 05:35:00 0.4 <=1 .2 (mg/dL) Final Calcium 01/12/2024 05:35:00 9.6 8.4-10.2 ( mg/dL) Final Protein 01/12/2024 05:35:00 6.2 6.0-8.3 (g /dL) Final ALT (Alanine aminotransferase) 01/12/2024 05:35:00 17 10-35 (U/L) Corey loja Performing Location [facility] [place] [address] [facility] [address]
--- OUTSIDE RECORDS SUMMARY | 2024-01-17 23:28 | External Medical Summary | Summary of Care ---
Author Name Unknown Organization [facility] Address [address] [place] [address] Phone [phone] Care Team Providers Care Radio Program Checker Name Role Phone Unavailable Primary Care Provider Unavailabl e Reason for Visit * Reason Onset Date Comments Custodial Visit - Admission 01/10/2024 Encounter Details Date Type Department Care Team (Latest Contact Info) Description 01/10/2024 8:00 AM EDT Custodial Visit [address] [place] [id number] Lin Mckeon MD [address] [place] [address] [place] [id number] Closed trimalleolar fracture of right ankle with routine healing, subsequent encounter*; HTN, goal below 140/90; Acquired hypothyroidism; Moderate dementia with mood disturbance, unspecified dementia type (HCC); Iron deficiency anemia, unspecified iron deficiency anemia type; Cirrhosis of liver without ascites, unspecified hepatic cirrhosis type (HCC); Liver mass; Gastroesophageal reflux disease, unspecified whether esophagitis present; Hyponatremia; Moderate persistent asthma without complication; History of GI bleed; Chronic cough; Implantable loop recorder present; Vasovagal syncope Allergies Active Allergy Reactions Criticality Noted Date Comments Bee Stings 01/25/2008 Morphine 01/24/2001 documented as of this encounter (statuses as of 01/10/2024) Medications Medication Sig Dispensed Refills Start Date End Date Status LORAZEPAM 0.5 MG PO TABSIndications:Anxi ety state One pill by mouth 3 times a day as needed for anxiety 40 2 01/25/2008 Active MULTI-VITAMIN PO TABS 0 01/31/2008 Active VENTOLIN HFA 108 (90 BASE) MCG/ACT IN AERS Use two puffs every four hours as needed for wheezing 1 5 01/31/2008 Active Furosemide 20 MG Oral Tablet (Lasix)Indications:H TN, goal below 140/90 Take 1 Tablet by [...] Active Levothyroxine Sodium 75 MCG Oral Tablet (Synthroid)Indicatio ns:Acquired hypothyroidism Take 1 Tablet by mouth daily [...] needed for Nausea or Vomiting. 01/10/2024 Active SYNTHROID 100 MCG OR TABSIndications:Hypo thyroidism 1 tab daily 1 1/2 tab sun 35 11 01/25/2008 4 Discontinued TIAZAC 240 MG PO [id number]:HTN, goal to be determined 1 every other day 15 11 01/25/2008 4 Discontinued METFORMIN HCL 500 MG PO TABSIndications:DM type 2, goal A1c below 7 1/2 tab daily 15 11 01/25/2008 4 Discontinued ASPIRIN 325 MG PO TABS One pill by mouth once a day with food 0 0 01/25/2008 4 Discontinued NITROSTAT 0.3 MG SL SUBLIndications:Stab le angina (HCC) One pill under tongue every 5 minutes as needed for chest pain, maximum 3 doses 25 11 01/25/2008 4 Discontinued FUROSEMIDE 40 MG PO TABSIndications:HTN, goal to be determined 1 tab daily as needed 30 11 01/25/2008 4 Discontinued ATACAND HCT 32-12.5 MG PO TABSIndications:HTN, goal to be determined One pill by mouth once a day 30 5 01/25/2008 4 Discontinued BYSTOLIC 2.5 MG PO TABSIndications:Stab le angina (HCC),HTN, goal to be determined one a day 30 5 01/25/2008 4 Discontinued OMEGA 3 1000 MG PO CAPS 0 01/31/2008 4 Discontinued FOLIC ACID 400 MCG PO TABS 0 01/31/2008 4 Discontinued CINNAMON 500 MG PO CAPS 0 01/31/2008 4 Discontinued CRANBERRY 250 MG PO TABS 0 01/31/2008 4 Discontinued CHROMIUM PICOLINATE 200 MCG PO CAPS 0 01/31/2008 4 Discontinued VITAMIN D 1000 UNIT PO TABS 0 01/31/2008 4 Discontinued SOY ISOFLAVONE 100 MG PO CAPS 0 01/31/2008 4 Discontinued CLARITIN 10 MG PO TABS One pill by mouth once a day for allergies 0 0 01/31/2008 4 Discontinued documented as of this encounter (statuses as of 01/10/2024) Active Problems Problem Noted Date Diagnosed Date Moderate dementia with mood disturbance 01/10/20 24 Closed trimalleolar fracture of right ankle 12/21 Iron deficiency anemia 01/10/2024 Cirrhosis of liver without ascites 01/10/2024 Liver mass 01/10/2024 Gastroesophageal reflux disease 01/10/2024 Moderate persistent asthma without complication 01/10/2024 History of GI bleed 01/10/2024 No transfusions per sabianism beliefs 01/10/2024 Chronic cough 01/10/2024 Implantable loop recorder present 01/10/2024 Vasovagal syncope 01/10/2024 Type 2 diabetes mellitus wit h hemoglobin A1c goal of less than 8.0% 03/19/2009 Overview: Per Diabetes Taxonomy. ICD-10 update of inactive term Hypothyroidism HTN, goal below 140/90 Overview: Modified per HTN protocol #16. documented as of this encounter (statuses as of 01/10/2024) Resolved Problems Problem Noted Date Diagnosed Date Resolved Date Stable angina 01/10/2024 Type 2 diabetes mellitus wit h hemoglobin A1c goal of less than 7.0% 03/19/2009 Overview: Per Diabetes Taxonomy. ICD-10 update of inactive term Diverticulitis of colon 12/21 documented as of this encounter (statuses as of 01/10/2024) Immunizations Name Administration Dates Next Due Pneumococcal [...] on file Sexual Orientation Not on file documented as of this encounter Progress Notes * Lin Mckeon MD - 01/10/2024 11:38 AM EDT ADMISSION HISTORY and PHYSICAL TRANSITION EVENT: Type: SNF admission Date: January 04 Code Status: No Code Name: Chanelle French Date of : 1945 This note pertains to care provided at [facility]. Please see facility medical record for original note. This note is not to be edited or addended in [employer]. Editing or addending needs to occur in the facilities medical record. S: Chanelle French had been admitted to [facility] from [facility] for PT and OT. Recently admitted to [facility] on 12/26/23 because of fall with right trimalleolar fracture and was transferred here and admitted on 01/05/2024. Patient of Dr. Candis Lee with PMH of dementia, asthma, chronic cough, GERD, cirrhosis of the liver, h/o GI bleed, iron deficiency anemia followed by hematology and treated with iron infusions at [facility], refusal of blood transfusions due to Latter day, hypertension, hypothyroidism, type 2 diabetes mellitus, and recurrent syncope s/p implanted loop recorder that is still present who presented to the ED after a fall at home. was attempting to get her to the car for a hair appointment and she fell going up a step in the garage and she landed on her hands and knees. No head trauma. In the ED, her hemoglobin was noted as stable at 9.6 and her creatinine as 1.33 (baseline around 0.9). CT of the head was negative for acute injury. CT of the cervical spine was also negative for acute injury. X-ray of the right hip and pelvis was negative. X-ray of the right knee was negative. X-ray of the right ankle showed soft tissue swelling but no acute bony injury. CXR was negative. She was reporting significant right ankle pain and swelling since the fall. Patient was admitted. She was seen by podiatry 12/28/[address] was ordered, which showed a trimalleolar fracture. She was placed in an air-cast and Dr. Juan Jose Acosta recommended non-weight bearing to the right lower extremity for 4-6 weeks. No outpatient follow-up was set up for the fracture. Her pain was controlled with Tylenol. SCDs were used for DVT prophylaxis. Patient urine culture grew E Coli and she completed a course of Cipro prior to discharge. Patient developed RUQ pain and some vomiting. RUQ ultrasound showed cirrhosis and a possible 1 cm mass at the anterior margin of the liver. Non-emergent outpatient CT of the liver or MRI was recommended to r/o mass. Patient does have known cirrhosis and follows with Dr. Palencia. states that this mass is being watched and she has an appointment coming up in January or February. Her sodium remained consistently low around 129-131. Her last hemoglobin prior to discharge on 01/02/24 was 8.7. Patient is now admitted for PT/OT. She lives at home with her , who is her caregiver. He cannot take care of her at home while she is non-weight bearing to the right lower extremity. Patient denies pain today. Right ankle remains swollen and in the air-cast but reports it is improved. reports she was nauseated this morning and did not eat breakfast. She has not vomited. Shedenies abdominal pain but states she feels full and bloated. She was getting Zofran while admitted per , which did help. reports she was started on an oral iron supplement a couple months ago. She was given an iron infusion while admitted. She is not currently on oral iron. Past Medical History: Patient Active Problem List Diagnosis Hypothyroidism HTN, goal below 140/90 Type 2 diabetes mellitus with hemoglobin A1c goal of less than 8.0% (HCC) Moderate dementia with mood disturbance (HCC) Closed trimalleolar fracture of right ankle Iron deficiency anemia Cirrhosis of liver without ascites (HCC) Liver mass Gastroesophageal reflux disease Moderate persistent asthma without complication History of GI bleed No transfusions per sabianism beliefs Chronic cough Implantable loop recorder present Vasovagal syncope Current Outpatient Medications Medication Sig Dispense Refill Furosemide 20 MG Oral Tablet (Lasix) Take 1 Tablet by mouth in the morning. Aspirin 81 MG Oral Tablet Chewable Take 1 Tablet by mouth in the morning and 1 Tablet before bedtime. with food.. metFORMIN HCl 500 MG Oral Tablet (Glucophage) Take 1 Tablet by mouth 2 times a day with morning andevening meals. Levothyroxine Sodium 75 MCG Oral Tablet (Synthroid) Take 1 Tablet by mouth daily first thing in themorning. (at least 30 min prior to breakfast or other meds) amLODIPine Besylate 5 MG Oral Tablet (Norvasc) Take 1 Tablet by mouth in the morning. Atorvastatin Calcium 10 MG Oral Tablet (Lipitor) Take 1 Tablet by mouth in the morning. Cetirizine HCl 10 MG Oral Capsule Take 1 Capsule by mouth in the morning. Docusate Sodium 100 MG Oral Capsule (Colace) Take 1 Capsule by mouth in the morning and 1 Capsule before bedtime. Donepezil HCl 5 MG Oral Tablet (Aricept) Take 1 Tablet by mouth in the morning. Take with largest meal of the day.. Escitalopram Oxalate 20 MG Oral Tablet (Lexapro) Take 1 Tablet by mouth in the morning. Glycopyrrolate 1 MG Oral Tablet (Robinul) Take 1 Tablet by mouth in the morning and 1 Tablet beforebedtime. Magnesium Oxide -Mg Supplement 400 (240 Mg) MG Oral Tablet (Mag-Ox) Take 1 Tablet by mouth in the morning and 1 Tablet at noon and 1 Tablet in the evening. Pantoprazole Sodium 40 MG Oral Tablet Delayed Release (Protonix) Take 1 Tablet by mouth in the morning and 1 Tablet before bedtime. Potassium Chloride ER 10 MEQ Oral Capsule Extended Release Take 1 Capsule by mouth in the morning. Vitamin B-12 1000 MCG Sublingual Tablet Sublingual Place 1 Tablet under the tongue in the morning. Ondansetron HCl 4 MG Oral Tablet Take 1 Tablet by mouth every 6 hours as needed for Nausea or Vomiting. LORAZEPAM 0.5 MG PO TABS One pill by mouth 3 times a day as needed for anxiety 40 2 MULTI-VITAMIN PO TABS 0 VENTOLIN HFA 108 (90 BASE) MCG/ACT IN AERS Use two puffs every four hours as needed for wheezing 1 5 No current facility-administered medications for this visit. Review of patient's allergies indicates: Allergen Reactions Bee Stings Morphine Social History Tobacco Use Smoking status: Never Smokeless tobacco: Not on file Substance Use Topics Alcohol use: No Vaping/E-Cigarette Use Vaping/E-Cigarette Substances Vaping/E-Cigarette Devices Past Surgical History: Procedure Laterality Date COLONOSCOPY 05/22/05 dr roth REMOVE GALLBLADDER SIGMOIDOSCOPY, DIAGNOSTIC 01/24/[address] Raygoza [place] [facility] to 45 cm TOTAL ABD HYSTERECTOMY W/WO REMOVAL OF TUBE(S) Family History Problem Relation Name Age of Onset Diabetes Mother Diabetes Father Diabetes Sister Hypertension Mother Hypertension Father Heart Disorder Father mi age 68 Stroke Mother stroke age 74 Heart Disorder Sister mi age 50 Hypertension Son Diabetes Son Family Status Relation Status Mo (Not Specified) Fa (Not Specified) Sis (Not Specified) Son (Not Specified) Sis (Not Specified) Sis (Not Specified) Son (Not Specified) Son (Not Specified) Review of Systems: Obtained from patient and . Constitutional ROS: No change in weight, No fevers, sweats, or chills, and +generalized weakness Eye ROS: No recent significant change in vision and No eye pain, redness, discharge Ear ROS: No ear pain, No drainage, No tinnitus or vertigo, and No recent change in hearing Nose ROS: No history of frequent colds or sinusitis, No nasal stuffiness, No significant epistaxis,and +allergic rhinitis and chronic cough Mouth/Throat ROS: No bleeding gums, No thrush, or No sore throat Pulmonary ROS: No wheezing, No shortness of breath, No recent change in breathing, and +chronic cough and asthma Cardiovascular ROS: No chest pain, No shortness of breath, No orthopnea, No paroxysmal nocturnal dyspnea, No palpitations, and +h/o syncope with implanted loop recorder x 2-3 years Gastrointestinal ROS: No change in bowel habits, No significant heartburn, No hematemesis, No bloodin stools or black tarry stools, No dysphagia, and +cirrhosis, nausea, vomiting, reduced appetite, and possible liver mass Genito-Urinary Female ROS: No dysuria and No frequency Musculoskeletal/Extremities ROS: +as per HPI Hematologic/Lymphatic ROS: No abnormal bleeding, No chills, and +iron deficiency anemia Skin/Integumentary ROS: No rash Neurologic ROS: No headaches, No seizures, and +dementia Endocrine ROS: No heat intolerance, No cold intolerance, No excessive thirst or urination, and +hypothyroidism and type 2 diabetes Psychiatric ROS: No psychosis and +depression and anxiety ADL skills: dependent Ambulates non ambulating as she is currently NWB to RLE OBJECTIVE: PHYSICAL EXAM: I reviewed the most recent facilities vitals. Refer to vital signs flowsheet in prison chart.General: alert, no distress, well nourished, and well developed Head: Normocephalic, No masses, lesions, tenderness or abnormalities Eye Exam: PERRLA, extraocular movements intact, conjunctiva are pink and non- injected, sclera clear Ears: External ears normal Nose: no mucosal erythema, no mucosal edema, no purulent discharge Oropharynx: no exudate, no erythema, lips, buccal mucosa, and tongue normal, and mucous membranes are moist Neck: supple, no adenopathy, no bruits Heart: regular rate & rhythm, no murmur, and no gallops Lungs: chest symmetric with normal AP diameter, no chest deformities noted, no chest wall tenderness, lungs clear to auscultation Abdomen: abdomen soft, normal bowel sounds, no masses or organomegaly, no rebound or guarding, and nontender Extremities: no clubbing, no cyanosis, no edema left lower extremity and 1+ edema right lower extremity with ANDRES wrap and Air-cast in place to ankle Neuro Exam: no focal motor/sensory deficits, alert, pleasant, and cooperative and appears mildly confused ASSESSMENT: Closed trimalleolar fracture of right ankle with routine healing, subsequent encounter (Primary)--continue Air-cast for now. Podiatry consult [facility] for follow-up of the trimalleolar fracture. Remains NWB to RLE. Add aspirin 81 mg twice daily for DVT prophylaxis. HTN, goal below 140/90--controlled with amlodipine 5 mg daily. Acquired hypothyroidism--continue levothyroxine 75 mcg daily. Moderate dementia with mood disturbance, unspecified dementia type (HCC)--continue Aricept 5 mg daily and Escitalopram 20 mg daily. Iron deficiency anemia, unspecified iron deficiency anemia type--[facility] Consider restarting oral iron if her nausea resolves. Check CBC Cirrhosis of liver without ascites, unspecified hepatic cirrhosis type (HCC)--follow-up with Dr. Palencia as scheduled. Liver mass--follow-up with Dr. Palencia as scheduled. and [facility] been monitoring it. Gastroesophageal reflux disease, unspecified whether esophagitis present--continue Protonix 40 mg twice daily. Hyponatremia--stable. Check CMP. Moderate persistent asthma without complication--continue albuterol PRN. Has a chronic cough now for about 2 years. History of GI bleed--patient and deny any recent GI bleeding. Chronic cough--continue cetrizine. Implantable loop recorder present Vasovagal syncope PLAN: 1. Continue present medication(s): Begin medication(s): Aspirin 81 mg twice daily x 6 weeks for DVT prophylaxis. Zofran 4 mg Q6H PRN N/V. Referral(s) to: Podiatry [facility] for follow-up of trimalleolar fracture. Is already scheduled with of GI for follow-up of cirrhosis and possible liver mass. Schedule labs: CBC w/diff, and CMP Patient education: Discussed starting aspirin for DVT prophylaxis. Patient has h/o GI bleed in records but and patient deny any recent issues and that she has tolerated aspirin. Monitor closely for signs of bleeding. She is at very high risk of DVT due to fracture and immobility. Consider adding iron supplement but is currently nauseated to will defer until feeling better. 2. Admission orders, medications, labs, hospital records and care plan reviewed. 3. [facility]le [employer] Hand consult, Physical Therapy, Occupational Therapy, and Speech Therapy ordered. 4. Care plan reviewed. 5. Advance Directives were discussed: The patient is a DNR 6. [facility] Home Treatment Given: n/a Electronically signed by: Lin Mckeon MD I spent a total of 54 minutes coordinating, documenting, and providing care for this patient excluding time spent in the performance of separately billed services or time spent by another provider/QHP. documented in this encounter Plan of Treatment Health Maintenance Due Date Last Done Comments DXA Scan 1945 Depression Screening 1955 Diabetic Eye Exam 1961 Zoster Vaccines (1 of 2) 1993 DTaP,Tdap,and Td Vaccines (1 - Tdap) 05/23/2002 05/22/2002 Hepatitis B Vaccine (1 of 3 - Risk 3-dose series) 2003 Pneumococcal Vaccine: 65+ Ye ars (2 of 2 - PCV) 05/22/2005 05/22/2004 HbA1c 07/24/2008 01/25/2008 Albumin/Creatinine Ratio 01/24/2009 01/25/2008 Diabetic Foot Exam 01/24/2009 01/25/2008 GFR 01/24/2009 01/25/2008 TSH 01/24/2009 01/25/2008 COVID-19 Vaccine (1 - 2022-2 4 season) 2023 Influenza Vaccine (FLU shot) (#1) 2024 HPV (Gardasil) Vaccine Aged Out No lo nger eligible based on patient's age to complete this topic MENINGOCOCCAL (MENACTRA/MENVEO) Aged Out No longer eligible based on patient's age to complete this topic documented as of this encounter Medical Devices Not on filedocumented as of this encounter Visit Diagnoses Diagnosis Closed trimalleolar fracture of right ankle with routine healing, subsequent encounter- Primary HTN, goal below 140/90 Unspecified essential hypertension Acquired hypothyroidism Unspecified hypothyroidism Moderate dementia with mood disturbance, unspecified dementia type (HCC) Iron deficiency anemia, unspecified iron deficiency anemia type Cirrhosis of liver without ascites, unspecified hepatic cirrhosis type (HCC) Liver mass Unspecified disorder of liver Gastroesophageal reflux disease, unspecified whether esophagitis present Hyponatremia Hyposmolality and/or hyponatremia Moderate persistent asthma without complication Unspecified asthma History of GI bleed Personal history of other diseases of digestive system Chronic cough Cough Implantable loop recorder present Vasovagal syncope Syncope and collapse documented in this encounter
[2024-01-18 01:00] LABS: Calcium 8.7 mg/dl (8.6-10.3); Creatinine Clr Calc Pharmacy 42.4 ml/min; Est GFR (African American) 61.6 ml/min; Est GFR (Non-African American) 53.2 ml/min; Potassium 4.4 mmol/L (3.5-5.1)
[2024-01-18 05:24] LABS: Basophils # (auto) 0.02 K/uL (0.00-0.20); Basophils % (auto) 0.3 %; Eosinophils # (auto) 0.37 K/uL (0.00-0.50); Eosinophils % (auto) 6.3 %; Hematocrit (blood only) 28.8 % (37.0-47.0); Hemoglobin 9.4 g/dl (12.0-16.0); Immature Granulocytes # (auto) 0.02 K/uL (0.01-0.20); Immature Granulocytes % (auto) 0.3 %; Lymphocytes # (auto) 1.05 K/uL (1.20-3.40); Lymphocytes % (auto) 17.9 %; Mean Corpuscular Hemoglobin 26.4 pg (25.0-34.0); Mean Corpuscular Hgb Conc 32.6 g/dL (32.0-36.0); Mean Corpuscular Volume 80.9 fL (80.0-100.0); Monocytes # (auto) 0.49 K/uL (0.11-0.59); Monocytes % (auto) 8.3 %; Neutrophils # (auto) 3.93 K/uL (1.40-6.50); Neutrophils % (auto) 66.9 %; Platelet Count 209 K/uL (130-400); RDW Coefficient of Variation 20.2 % (11.5-14.5); RDW Standard Deviation 59.5 fL (36.4-46.3); Red Blood Count 3.56 M/uL (4.20-5.40); White Blood Count 5.88 K/ul (4.8-10.8)
[2024-01-18 05:37] LABS: Calcium 8.4 mg/dl (8.6-10.3); Creatinine Clr Calc Pharmacy 45.2 ml/min; Est GFR (African American) 66.4 ml/min; Est GFR (Non-African American) 57.3 ml/min; Potassium 4.4 mmol/L (3.5-5.1)
[2024-01-18 05:55] LABS: Anisocytosis Present; Polychromasia 1+
[2024-01-18] MEDS: LEVOTHYROXINE SODIUM 75 MCG TABLET PO SCH (06:19)
--- OUTSIDE RECORDS SUMMARY | 2024-01-18 07:25 | External Medical Summary | Summary of Care ---
Author Name Unknown Organization [facility] Address [address] [place] [address] Phone [phone] Care Team Providers Care Senior National Account Manager Name Role Phone Unavailable Primary Care Provider Unavailabl e Reason for Visit * Reason Onset Date Comments Complicated Acute Visit 01/17/2024 Encounter Details Date Type Department Care Team (Latest Contact Info) Description 01/17/2024 7:00 AM EDT Usp Visit [facility] [address] [place] [address] Denise Brice PA-C [address] [place] [address] Hyponatremia*; Closed trimalleolar fracture of right ankle with routine healing, subsequent encounter; Cirrhosis of liver without ascites, unspecified hepatic cirrhosis type (HCC); Type 2 diabetes mellitus with hemoglobin A1c goal of less than 8.0% (HCC); Moderate dementia with mood disturbance, unspecified dementia type ([facility]) Allergies Active Allergy Reactions Criticality Noted Date Comments Bee Stings 01/25/2008 Morphine 01/24/2001 documented as of this encounter (statuses as of 01/17/2024) Medications Medication Sig Dispensed Refills Start Date [...] as of this encounter (statuses as of 01/17/2024) Active Problems Problem Noted Date Diagnosed Date DNR (do not resuscitate) 01/15/2024 Moderate dementia with mood disturbance 01/10/20 Closed trimalleolar fracture of right ankle 12/21 Iron deficiency anemia 01/10/2024 Cirrhosis of liver without ascites 01/10/2024 Liver mass 01/10/2024 Gastroesophageal reflux disease 01/10/2024 Moderate persistent asthma without complication 01/10/2024 History of GI bleed 01/10/2024 No transfusions per voodoo beliefs 01/10/2024 Chronic cough 01/10/2024 Implantable loop recorder present 01/10/2024 Vasovagal syncope 01/10/2024 Type 2 diabetes mellitus wit h hemoglobin A1c goal of less than 8.0% 03/19/2009 Overview: Per Diabetes Taxonomy. ICD-10 update of inactive term Hypothyroidism HTN, goal below 140/90 Overview: Modified per HTN protocol #16. documented as of this encounter (statuses as of 01/17/2024) Resolved Problems Problem Noted Date Diagnosed Date Resolved Date Stable angina 01/10/2024 Type 2 diabetes mellitus wit h hemoglobin A1c goal of less than 7.0% 03/19/2009 Overview: Per Diabetes Taxonomy. ICD-10 update of inactive term Diverticulitis of colon 12/21 documented as of this encounter (statuses as of 01/17/2024) Immunizations Name Administration Dates Next Due Pneumococcal [...] as of this encounter Progress Notes * Denise Brice PA-C - 01/17/2024 10:26 AM EDT Images from the original note were not included. Name: Chanelle French Date of :1945 TRANSITION EVENT: Type: Complicated acute visit Date: January 16 Code Status: No Code This note pertains to care provided at [facility]. Please see facility medical record for original note. This note is not to be edited or addended in [employer]. Editing or addending needs to occur in the facilities medical record. Subjective: Chanelle French is a 78 year old female. Patient being seen for abnormal labs Chief Complaint Patient presents with Complicated Acute Visit HPI: pt is here for rehabilitation following trimalleolar fx right ankle. Non surgical treatment inplace. Pt is non weight bearing to RLE. Pt was noted to have hyponatremia in the 126 to 128 range while in [facility] during last admission. Pt has liver cirrhosis and follows with Dr Palencia for this. According to pt has been feeling more weak over past day. Decreased oral intake over past day. Pt has dementia with mentation at her usualbaseline. Pt has been just wanting to sleep for past day. Pt is currently on fluid restriction. Vital signs stable. CBC Results: Results for orders placed or performed in visit on 01/12/24 CBC Result Value Ref Range WBC 4.93 4.00 - 10.80 K/uL RBC 3.60 3.85 - 5.15 M/uL HGB 9.4 (L) 12.0 - 15.3 g/dL HCT 29.5 (L) 36.0 - 45.2 % MCV 81.9 81.5 - 97.5 fL MCH 26.1 27.0 - 34.0 pg MCHC 31.9 32.0 - 36.0 g/dL RDW 19.7 11.5 - 15.5 % PLT 188 140 - 400 K/uL MPV 10.4 6.6 - 11.1 fL Hemoglobin Results: Lab Results Component Value Date/Time HGB 9.4 (L) 01/12/2024 05:35 AM COMPREHENSIVE METABOLIC PANEL Order: [id number] Status: Final result Visible to patient: No (inaccessible in MyChart) Next appt: None Dx: Anemia; Cirrhosis of liver (HCC) 0 Result Notes 1 HM Topic Component Ref Range & Units 5 d ago BUN 6 - 20 mg/dL 12 Creatinine 0.5 - 1.0 mg/dL 0.9 Estimated Glomerular Filtration Rate >=60 mL/min 62 Comment: eGFR is calculated based on the CKD-EPI 2020 equation. Sodium 135 - 146 mmol/L 126 Low Potassium 3.5 - 5.1 mmol/L 4.5 Chloride 98 - 107 mmol/L 88 Low CO2 22 - 32 mmol/L 25 Anion Gap 7 - 15 mmol/L 13 Glucose 70 - 120 mg/dL 117 Albumin 3.8 - 5.0 g/dL 3.8 AST 10 - 35 U/L 25 Alkaline Phosphatase 35 - 130 U/L 89 Bilirubin, Total <=1.2 mg/dL 0.4 Calcium 8.4 - 10.2 mg/dL 9.6 Protein 6.0 - 8.3 g/dL 6.2 ALT 10 - 35 U/L 17 Resulting Agency [facility] 57-10 Specimen Collected: 01/12/24 05:35 Last Resulted: 01/12/24 08:22 Creatinine Results: Lab Results Component Value Date/Time CREATININE - [facility] 1.1 (H) 01/17/2024 05:48 AM CREATININE - [facility] 0.9 01/12/2024 05:35 AM CREATININE - [facility] 0.8 01/25/2008 11:04 AM CREATININE, RANDOM URINE - [facility] 184 01/25/2008 11:04 AM Potassium Results: Lab Results Component Value Date/Time POTASSIUM - [facility] 4.8 01/17/2024 05:48 AM POTASSIUM - [facility] 4.5 01/12/2024 05:35 AM POTASSIUM - [facility] 4.0 01/25/2008 11:04 AM Sodium Results: Lab Results Component Value Date/Time SODIUM - [facility] 119 (LL) 01/17/2024 05:48 AM SODIUM - [facility] 126 (L) 01/12/2024 05:35 AM SODIUM - [facility] 139 01/25/2008 11:04 AM Chloride Results: Lab Results Component Value Date/Time CHLORIDE - [facility] 83 (L) 01/17/2024 05:48 AM CHLORIDE - [facility] 88 (L) 01/12/2024 05:35 AM CHLORIDE - [facility] 103 01/25/2008 11:04 AM Patient Active Problem List Diagnosis Hypothyroidism HTN, goal below 140/90 Type 2 diabetes mellitus with hemoglobin A1c goal of less than 8.0% (HCC) Moderate dementia with mood disturbance (HCC) Closed trimalleolar fracture of right ankle Iron deficiency anemia Cirrhosis of liver without ascites (HCC) Liver mass Gastroesophageal reflux disease Moderate persistent asthma without complication History of GI bleed No transfusions per voodoo beliefs Chronic cough Implantable loop recorder present Vasovagal syncope DNR (do not resuscitate) Past Medical History: Diagnosis Date Closed trimalleolar fracture of right ankle 01/10/2024 Diverticulitis of colon DM type 2, goal A1c below 7 HTN, goal to be determined Hypothyroidism Stable angina (HCC) Past Surgical History: Procedure Laterality Date COLONOSCOPY 05/22/05 dr roth REMOVE GALLBLADDER SIGMOIDOSCOPY, DIAGNOSTIC 01/24/[address] [place] [facility] [place] WN [place] 45 cm TOTAL ABD HYSTERECTOMY W/WO [...] Specified) Son (Not Specified) Son (Not Specified) Social History Socioeconomic History Marital status: Spouse name: Not on file Number of children: Not on file Years of education: Not on file Highest education level: Not on file Occupational History Not on file Tobacco Use Smoking status: Never Smokeless tobacco: Not on file Substance and Sexual Activity Alcohol use: No Drug use: No Sexual activity: Not on file Other Topics Concern Not on file Social History Narrative Not on file Social Determinants of Health Financial Resource Strain: Not on file Food Insecurity: Not on file Transportation Needs: Not on file Social Connections: Unknown (11/07/2023) Social Connections How often do you feel lonely or isolated from those around you? (Adult - for ages 18 years and over): Not on file Housing Stability: Not on file Review of patient's allergies indicates: Allergen Reactions Bee Stings Morphine I have reviewed medications and allergies. Please refer to MAR in the facility's medical record forthe most up-to-date medication list as this cannot be edited in [email or web address]. Review of Systems: obtained mostly from Constitutional ROS: No change in weight, +weakness, +fatigue and No fevers, sweats, or chills Eye ROS: No recent significant change in vision, No eye pain, redness, discharge and No diplopia Ear ROS: No ear pain, No drainage, No tinnitus or vertigo and No recent change in hearing Nose ROS: No nasal stuffiness and No significant epistaxis Mouth/Throat ROS: No thrush or No sore throat Neck ROS: No lumps or masses, No swollen glands, No recent swelling in thyroid area and No significant pain in neck Pulmonary ROS: No cough, sputum, or hemoptysis, No wheezing, No shortness of breath and No recent change in breathing Cardiovascular ROS: No chest pain, No shortness of breath, No edema, No palpitations and No syncope Gastrointestinal ROS: No abdominal pain, No change in bowel habits, No significant change in appetite, No nausea, vomiting, diarrhea, or constipation and No dysphagia Musculoskeletal/Extremities ROS: see HPI Skin/Integumentary ROS: No rash and No itching Neurologic ROS: No headaches and No seizures Psychiatric ROS: No depression, No anxiety and No psychosis + dementia Sleep: No sleep disorders OBJECTIVE: PHYSICALEXAM: I reviewed the most recent facilities vitals. General: more lethargic today, no distress, well nourished and well developed Eye Exam: Conjunctiva are pink and non-injected, sclera clear Nose: no mucosal erythema, no mucosal edema, no purulent discharge Oropharynx: no exudate, no erythema, lips, buccal mucosa, and tongue normal and mucous membranes are moist Neck: supple, no adenopathy, non-tender, neck veins flat, trachea midline Heart: regular rate & rhythm, no murmurs and no gallops Lungs: normal respiratory rate and rhythm, no chest wall tenderness, lungs clear to auscultation Abdomen: abdomen soft, non-tender, normal bowel sounds and no masses or organomegaly Extremities: no edema, no clubbing, no cyanosis Neuro Exam: alert & oriented x 1with fluent speech, no focal motor/sensory deficits Skin: skin color, texture, turgor are normal, no rashes or significant lesions ASSESSMENT: Hyponatremia (Primary) Na+ significantly low Pt more lethargic and somnolent Discussed with who was present. He notes significant change in one day Discussed with Dr Mckeon Determined that pt should be sent to ED via ambulance for further evaluation and Rx Closed trimalleolar fracture of right ankle with routine healing, subsequent encounter Continue NWB RLE Cirrhosis of liver without ascites, unspecified hepatic cirrhosis type (HCC) Follows with Dr Palencia for this Type 2 diabetes mellitus with hemoglobin A1c goal of less than 8.0% (HCC) Glucoses stable currently Moderate dementia with mood disturbance, unspecified dementia type (HCC) Stable mood and mentation PLAN: Send to ED via ambulance [facility] Home Treatment Given: as above Electronically signed by: Denise Brice PA-C Over 45 minutes were spent in this visit more than half the time was spent counselling or coordinating care. documented in this encounter Plan of Treatment Health Maintenance Due Date Last Done Comments DXA Scan 1945 Depression Screening 1955 Diabetic Eye Exam 1961 Zoster Vaccines (1 of 2) 1993 Hepatitis B Vaccine (1 of 3 - Risk 3-dose series) 2003 HbA1c 07/24/2008 01/25/2008 Albumin/Creatinine Ratio 01/24/2009 01/25/2008 Diabetic Foot Exam 01/24/2009 01/25/2008 TSH 01/24/2009 01/25/2008 COVID-19 Vaccine (2022- season) 2023 03/07/2023, 03/11/2022, 04/30/2021, Additional history exists *SPIROMETRY ONCE FOR ASTHMA-ADULT 01/12/2024 Influenza Vaccine (FLU shot) (#1) 2024 03/07/2023, 03/03/2022, 03/02/2021, Additional history exists GFR 01/16/2025 01/17/2024, 12/21, 01/25/2008 DTap/Tdap Vaccines (2 - Td or [...] Diagnoses Diagnosis Hyponatremia- Primary Hyposmolality and/or hyponatremia Closed trimalleolar fracture of right ankle with routine healing, subsequent encounter Cirrhosis of liver without ascites, unspecified hepatic cirrhosis type (HCC) Type 2 diabetes mellitus with hemoglobin A1c goal of less than 8.0% (HCC) Moderate dementia with mood disturbance, unspecified dementia type (HCC) documented in this encounter
[2024-01-18 07:27] LABS: Calcium 8.6 mg/dl (8.6-10.3); Creatinine Clr Calc Pharmacy 46.9 ml/min; Est GFR (African American) 66.4 ml/min; Est GFR (Non-African American) 57.3 ml/min; Potassium 4.8 mmol/L (3.5-5.1)
[2024-01-18] MEDS: ATORVASTATIN 10 MG TAB PO SCH (08:30)
[2024-01-18] MEDS: CETIRIZINE HCL 10 MG TABLET PO SCH (08:30)
[2024-01-18] MEDS: DONEPEZIL HCL 5 MG TAB PO SCH (08:30)
[2024-01-18] MEDS: CYANOCOBALAMIN (B-12) 500 MCG TABLET PO SCH (08:30)
[2024-01-18] MEDS: POTASSIUM CHLORIDE 10 MEQ TABCR PO SCH (08:30)
[2024-01-18] MEDS: FUROSEMIDE 20 MG TAB PO SCH (08:30)
[2024-01-18] MEDS: amLODIPine BESYLATE 5 MG TAB PO SCH (08:31)
[2024-01-18] MEDS: MULTIVITAMIN TAB PO SCH (08:31)
[2024-01-18] MEDS: ACETAMINOPHEN 325 MG TAB PO PRN (08:37)
--- NOTE | 2024-01-18 12:58 | Hospitalist Progress Note ---
Date of Service January 18, 2024 Assessment & Plan (1) Hyponatremia: Plan: Hyponatremia With associated weakness Sodium 120 on admission Serum osmolality 256 With poor p.o. intake and volume contraction, suspected hypovolemic hyponatremia -urine osmolality, low Received 500 cc NSS in the ER Will continue IV saline 100cc/hr Falls, weakness Multifactoria with deconditioning, and hyponatremia. Also with past history of UTIs PT/OT pending UA pending, no urinary symptoms RIGHT Trimalleolar fx - Noted on prior CT. Nonoperative as per lettuce trimmer fibula fx , no WB for 6 weeks Elevate right lower extremity every shift - NWB RLE Type II DM Goal 422344 BSG CF 40, Ratio 20 Type II DM diet Anemia History of MERRY, patient is a Orthodoxy and cannot receive any blood products HEmoglobin 10.4 on admission, uptrending from 8.7 -MCV borderline reduced at 81 Continue outpatient follow-up for iron treatments as needed. If remaining send patient may get up to 3X 300 mg Venofer doses while inpatient. DVT prophylaxis: SCDs. History of hemorrhage while on pharmacpprophylaxis/LGI bleed Diet: Liberalized soft bite-size CODE STATUS: DNR/DNI Admission and Anticipated Discharge Date Admission Date: January 17, 2024 Subjective Patient seen and examined, tolerating diet, feeling better Review of Systems Review of Systems: All systems reviewed are negative, apart from the ones contained in the history. Physical Exam Physical Exam: The patient is awake, alert and oriented 3, well developed and well nourished, normocephalic and atraumatic, lying in bed and in no acute distress. HEENT--PERRL, EOMI, mucous membranes and oropharynx mildly dry Neck--supple. No JVD. No bruits. Thyroid normal, trachea midline, no adenopathy. Heart--normal S1 and S2. No murmurs, rubs or gallops. Lungs--clear bilaterally, no respiratory distress, no accessory muscle use. Abdomen--normal bowel sounds and soft. Extremities--no cyanosis or clubbing. No edema. Dermatologic--normal skin turgor, normal color, no abnormal lymph nodes, no rash. Neurologic--cranial nerves II through XII grossly intact. Rheumatologic--normal range of motion. Psychiatric--normal affect. Results & Data Results & Data Vital Signs (Past 12 Hours) Vital Signs Temp Pulse Resp BP Pulse Ox O2 Del Method 01/18/24 11:03 97.7 F 69 19 113/67 92 Room Air 01/18/24 07:43 97.3 F L 65 18 120/67 98 Room Air 01/18/24 03:19 98.1 F 69 18 115/64 96 Room Air PG Care Time/CCT Total # of Minutes Spent Total Time Spent with Patient: Total time spent is greater than 50% in coordination of care (as documented) at patient's floor/unit and/or counseling patient: Coding Level of Care Code 40256 SUB INP/OBS CARE 2/35MIN Diagnoses Hyponatremia E87.1 Time Spent (min) 35
[2024-01-18 13:11] LABS: BUN Creatinine Ratio 15.4 (10-20); Calcium 8.4 mg/dl (8.6-10.3); Creatinine Clr Calc Pharmacy 42.4 ml/min; Est GFR (African American) 58.8 ml/min; Est GFR (Non-African American) 50.7 ml/min; Potassium 4.8 mmol/L (3.5-5.1)
[2024-01-18] MEDS: SODIUM CHLORIDE 0.9% 1,000 ML IV SCH (13:57)
[2024-01-18] MEDS ORDERED: SODIUM CHLORIDE 1 GM TABLET PO SCH (21:00)
[2024-01-19 06:50] LABS: Basophils # (auto) 0.03 K/uL (0.00-0.20); Basophils % (auto) 0.6 %; Eosinophils # (auto) 0.37 K/uL (0.00-0.50); Eosinophils % (auto) 7.6 %; Hematocrit (blood only) 33.1 % (37.0-47.0); Hemoglobin 10.5 g/dl (12.0-16.0); Immature Granulocytes # (auto) 0.01 K/uL (0.01-0.20); Immature Granulocytes % (auto) 0.2 %; Lymphocytes # (auto) 1.25 K/uL (1.20-3.40); Lymphocytes % (auto) 25.6 %; Mean Corpuscular Hemoglobin 26.1 pg (25.0-34.0); Mean Corpuscular Hgb Conc 31.7 g/dL (32.0-36.0); Mean Corpuscular Volume 82.3 fL (80.0-100.0); Mean Platelet Volume 9.3 fL (9.4-12.4); Monocytes % (auto) 8.2 %; Neutrophils # (auto) 2.83 K/uL (1.40-6.50); Neutrophils % (auto) 57.8 %; Platelet Count 206 K/uL (130-400); RDW Coefficient of Variation 20.5 % (11.5-14.5); RDW Standard Deviation 61.9 fL (36.4-46.3); Red Blood Count 4.02 M/uL (4.20-5.40); White Blood Count 4.89 K/ul (4.8-10.8)
[2024-01-19 06:59] LABS: BUN Creatinine Ratio 12.6 (10-20); Calcium 8.4 mg/dl (8.6-10.3); Creatinine Clr Calc Pharmacy 46.9 ml/min; Est GFR (African American) 65.6 ml/min; Est GFR (Non-African American) 56.6 ml/min; Potassium 4.6 mmol/L (3.5-5.1)
[2024-01-19 07:13] LABS: Anisocytosis Present
--- NOTE | 2024-01-19 10:59 | Hospitalist Progress Note ---
Date of Service January 19, 2024 Assessment & Plan (1) Hyponatremia: Plan: Hyponatremia -Hypovolemic hyponatremia With associated weakness Sodium 120 on admission, Serum osmolality 256, urine osmolality, low -Now improving following normal saline rehydration, sodium today 129 Will continue IV saline 100cc/hr -recheck BMP tomorrow Falls, weakness Multifactoria with deconditioning, and hyponatremia. Also with past history of UTIs PT/OT pending UA pending, no urinary symptoms RIGHT Trimalleolar fx - Noted on prior CT. Nonoperative as per yard worker fibula fx , no WB for 6 weeks Elevate right lower extremity every shift - NWB RLE Type II DM Goal 846669 BSG CF 40, Ratio 20 Type II DM diet Anemia History of MERRY, patient is a Hinduism and cannot receive any blood products HEmoglobin 10.4 on admission, uptrending from 8.7 -MCV borderline reduced at 81 Continue outpatient follow-up for iron treatments as needed. If remaining send patient may get up to 3X 300 mg Venofer doses while inpatient. DVT prophylaxis: SCDs. History of hemorrhage while on pharmacpprophylaxis/LGI bleed Diet: Liberalized soft bite-size CODE STATUS: DNR/DNI Admission and Anticipated Discharge Date Admission Date: January 17, 2024 Subjective Patient seen and examined, tolerating diet, feeling better Review of Systems Review of Systems: All systems reviewed are negative, apart from the ones contained in the history. Physical Exam Physical Exam: The patient is awake, alert and oriented 3, well developed and well nourished, normocephalic and atraumatic, lying in bed and in no acute distress. HEENT--PERRL, EOMI, mucous membranes and oropharynx mildly dry Neck--supple. No JVD. No bruits. Thyroid normal, trachea midline, no adenopathy. Heart--normal S1 and S2. No murmurs, rubs or gallops. Lungs--clear bilaterally, no respiratory distress, no accessory muscle use. Abdomen--normal bowel sounds and soft. Extremities--no cyanosis or clubbing. No edema. Dermatologic--normal skin turgor, normal color, no abnormal lymph nodes, no rash. Neurologic--cranial nerves II through XII grossly intact. Rheumatologic--normal range of motion. Psychiatric--normal affect. Results & Data Results & Data Vital Signs (Past 12 Hours) Vital Signs Temp Pulse Resp BP Pulse Ox O2 Del Method 01/19/24 07:28 97.5 F L 60 16 154/76 H 95 Room Air 01/19/24 03:39 97.5 F L 57 L 17 137/65 98 Room Air 01/18/24 23:09 98.1 F 58 L 17 133/68 96 Room Air PG Care Time/CCT Total # of Minutes Spent Total Time Spent with Patient: Total time spent is greater than 50% in coordination of care (as documented) at patient's floor/unit and/or counseling patient: Coding Level of Care Code 68112 SUB INP/OBS CARE 2/35MIN Diagnoses Hyponatremia E87.1 Time Spent (min) 35
[2024-01-19] MEDS: IPRATROPIUM BROMIDE 0.03% NASAL SPRAY SCH (21:30)
[2024-01-20 06:23] LABS: Calcium 8.2 mg/dl (8.6-10.3); Potassium 4.5 mmol/L (3.5-5.1)
[2024-01-20 06:29] LABS: BUN Creatinine Ratio 11.1 (10-20); Creatinine Clr Calc Pharmacy 49.6 ml/min; Est GFR (Non-African American) 60.4 ml/min
[2024-01-20 06:35] LABS: Hemoglobin 9.4 g/dl (12.0-16.0); Mean Corpuscular Hemoglobin 26.4 pg (25.0-34.0); Mean Corpuscular Hgb Conc 31.3 g/dL (32.0-36.0); Mean Corpuscular Volume 84.3 fL (80.0-100.0); Mean Platelet Volume 9.7 fL (9.4-12.4); Platelet Count 184 K/uL (130-400); RDW Coefficient of Variation 20.9 % (11.5-14.5); RDW Standard Deviation 64.4 fL (36.4-46.3); Red Blood Count 3.56 M/uL (4.20-5.40); White Blood Count 4.46 K/ul (4.8-10.8)
[2024-01-20 06:51] LABS: Anisocytosis Present; Basophils # (auto) 0.03 K/uL (0.00-0.20); Basophils % (auto) 0.7 %; Eosinophils # (auto) 0.38 K/uL (0.00-0.50); Eosinophils % (auto) 8.5 %; Immature Granulocytes # (auto) 0.04 K/uL (0.01-0.20); Immature Granulocytes % (auto) 0.9 %; Lymphocytes # (auto) 1.02 K/uL (1.20-3.40); Lymphocytes % (auto) 22.9 %; Monocytes # (auto) 0.37 K/uL (0.11-0.59); Monocytes % (auto) 8.3 %; Neutrophils # (auto) 2.62 K/uL (1.40-6.50); Neutrophils % (auto) 58.7 %; Platelet Estimate Normal (Normal)
--- NOTE | 2024-01-20 10:37 | Hospitalist Progress Note ---
Date of Service January 20, 2024 Assessment & Plan (1) Hyponatremia: Plan: Hyponatremia -Hypovolemic hyponatremia With associated weakness Now resolved Falls, weakness Multifactoria with deconditioning, and hyponatremia. Also with past history of UTIs PT/OT pending UA pending, no urinary symptoms RIGHT Trimalleolar fx - Noted on prior CT. Nonoperative as per cardiac tech fibula fx , no WB for 6 weeks Elevate right lower extremity every shift - NWB RLE Type II DM Goal 600751 BSG CF 40, Ratio 20 Type II DM diet Anemia History of MERRY, patient is a Alevism and cannot receive any blood products HEmoglobin 10.4 on admission, uptrending from 8.7 -MCV borderline reduced at 81 Continue outpatient follow-up for iron treatments as needed. If remaining send patient may get up to 3X 300 mg Venofer doses while inpatient. DVT prophylaxis: SCDs. History of hemorrhage while on pharmacpprophylaxis/LGI bleed Diet: Liberalized soft bite-size CODE STATUS: DNR/DNI Discharge back to [facility] when Auth is obtained Admission and Anticipated Discharge Date Admission Date: January 17, 2024 Subjective Patient seen and examined, tolerating diet, feeling better Review of Systems Review of Systems: All systems reviewed are negative, apart from the ones contained in the history. Physical Exam Physical Exam: The patient is awake, alert and oriented 3, well developed and well nourished, normocephalic and atraumatic, lying in bed and in no acute distress. HEENT--PERRL, EOMI, mucous membranes and oropharynx mildly dry Neck--supple. No JVD. No bruits. Thyroid normal, trachea midline, no adenopathy. Heart--normal S1 and S2. No murmurs, rubs or gallops. Lungs--clear bilaterally, no respiratory distress, no accessory muscle use. Abdomen--normal bowel sounds and soft. Extremities--no cyanosis or clubbing. No edema. Dermatologic--normal skin turgor, normal color, no abnormal lymph nodes, no rash. Neurologic--cranial nerves II through XII grossly intact. Rheumatologic--normal range of motion. Psychiatric--normal affect. Results & Data Results & Data Vital Signs (Past 12 Hours) Vital Signs Temp Pulse Pulse Resp BP Pulse Ox O2 Del Method 01/20/24 07:37 64 01/20/24 07:19 62 19 167/75 H 95 Room Air 01/20/24 03:10 98.4 F 61 14 146/68 H 96 Room Air 01/19/24 23:00 97.9 F 65 19 152/77 H 95 Room Air PG Care Time/CCT Total # of Minutes Spent Total Time Spent with Patient: Total time spent is greater than 50% in coordination of care (as documented) at patient's floor/unit and/or counseling patient: Coding Level of Care Code 89711 SUB INP/OBS CARE 2/35MIN Diagnoses Hyponatremia E87.1 Time Spent (min) 35
[2024-01-21 07:01] LABS: BUN Creatinine Ratio 12.7 (10-20); Calcium 8.8 mg/dl (8.6-10.3); Creatinine Clr Calc Pharmacy 56.2 ml/min; Est GFR (African American) 81.9 ml/min; Est GFR (Non-African American) 70.7 ml/min; Potassium 4.4 mmol/L (3.5-5.1)
--- NOTE | 2024-01-21 16:24 | Hospitalist Progress Note ---
Date of Service January 21, 2024 Assessment & Plan (1) Hyponatremia: Plan: Hyponatremia -Hypovolemic hyponatremia With associated weakness Now resolved Falls, weakness Multifactoria with deconditioning, and hyponatremia. Also with past history of UTIs PT/OT on board UA pending, no urinary symptoms RIGHT Trimalleolar fx - Noted on prior CT. Nonoperative as per entry level account representative fibula fx , no WB for 6 weeks Elevate right lower extremity every shift - NWB RLE Type II DM Goal 164261 BSG CF 40, Ratio 20 Type II DM diet Anemia History of MERRY, patient is a Zoroastrianism and cannot receive any blood products HEmoglobin stable -MCV borderline reduced at 81 Continue outpatient follow-up for iron treatments as needed. If remaining send patient may get up to 3X 300 mg Venofer doses while inpatient. DVT prophylaxis: SCDs. History of hemorrhage while on pharmacpprophylaxis/LGI bleed Diet: Liberalized soft bite-size CODE STATUS: DNR/DNI Discharge back to [facility] when Auth is obtained Admission and Anticipated Discharge Date Admission Date: January 17, 2024 Subjective Patient feels well. Denies chest pain or shortness of breath. Review of Systems Review of Systems: All systems reviewed & are unremarkable except as noted in Subjective Physical Exam Physical Exam: General: Awake, conversant Heart: S1, S2/regular rate and rhythm, no murmur rubs or gallops Lungs: Clear to auscultation bilaterally. Normal effort Abdomen: Soft/nontender/nondistended. No hepatosplenomegaly Extremities: No clubbing/cyanosis. No edema Behavior: Appropriate, cooperative Results & Data Results & Data Vital Signs (Past 12 Hours) Vital Signs Temp Pulse Pulse Resp BP Pulse Ox O2 Del Method 01/21/24 08:38 36.7 C 84 18 122/87 96 Room Air 01/21/24 08:00 61 01/21/24 08:00 Room Air 01/21/24 07:00 36.7 C 67 20 147/75 H 94 Room Air Laboratory Results Abnormal lab results 01/20/24 01/21/24 01/21/24 Range/Units 19:49 05:59 12:21 Sodium 133 L (136-145) mmol/L Glucose 123 H (70-99(Fasting)) mg/dl POC Glucose 160 H 150 H (70-99) mg/dl PG Care Time/CCT Total # of Minutes Spent Total Time Spent with Patient: Total time spent is greater than 50% in coordination of care (as documented) at patient's floor/unit and/or counseling patient: Coding Level of Care Code 30353 SUB INP/OBS CARE 2/35MIN Diagnoses Hyponatremia E87.1
--- NOTE | 2024-01-22 14:55 | Hospitalist Progress Note ---
Date of Service January 22, 2024 Assessment & Plan (1) Hyponatremia: Plan: Hyponatremia -Hypovolemic hyponatremia With associated weakness Now resolved Falls, weakness Multifactoria with deconditioning, and hyponatremia. Also with past history of UTIs PT/OT on board UA pending, no urinary symptoms RIGHT Trimalleolar fx - Noted on prior CT. Nonoperative as per html developer fibula fx , no WB for 6 weeks Elevate right lower extremity every shift - NWB RLE Type II DM Goal [id number] BSG CF 40, Ratio 20 Type II DM diet Anemia History of MERRY, patient is a Protestant and cannot receive any blood products HEmoglobin stable -MCV borderline reduced at 81 Continue outpatient follow-up for iron treatments as needed. If remaining send patient may get up to 3X 300 mg Venofer doses while inpatient. DVT prophylaxis: SCDs. History of hemorrhage while on pharmacpprophylaxis/LGI bleed Diet: Liberalized soft bite-size CODE STATUS: DNR/DNI Discharge back to [facility] when Auth is obtained Admission and Anticipated Discharge Date Admission Date: January 17, 2024 Subjective Patient feels well. Denies chest pain or shortness of breath. at the bedside. Review of Systems Review of Systems: All systems reviewed & are unremarkable except as noted in Subjective Physical Exam Physical Exam: General: Awake, conversant Heart: S1, S2/regular rate and rhythm, no murmur rubs or gallops Lungs: Clear to auscultation bilaterally. Normal effort Abdomen: Soft/nontender/nondistended. No hepatosplenomegaly Extremities: No clubbing/cyanosis. No edema Behavior: Appropriate, cooperative Results & Data Results & Data Vital Signs (Past 12 Hours) Vital Signs Temp Pulse Resp BP Pulse Ox O2 Del Method 01/22/24 11:45 36.5 C 74 19 102/58 L 98 Room Air 01/22/24 08:00 Room Air 01/22/24 07:59 36.6 C 66 18 126/65 98 Room Air 01/22/24 04:00 67 14 Laboratory Results Abnormal lab results 01/21/24 01/21/24 01/22/24 Range/Units 16:50 20:55 07:58 POC Glucose 226 H 120 H 169 H (70-99) mg/dl 01/22/24 Range/Units 11:44 POC Glucose 173 H (70-99) mg/dl PG Care Time/CCT Total # of Minutes Spent Total Time Spent with Patient: Total time spent is greater than 50% in coordination of care (as documented) at patient's floor/unit and/or counseling patient: Coding Level of Care Code 22224 SUB INP/OBS CARE 2/35MIN Diagnoses Hyponatremia E87.1
[2024-01-23 08:03] VITALS: RESP 19
[2024-01-23] MEDS ORDERED: ACETAMINOPHEN 325 MG TAB PO PRN (10:43)
[2024-01-23 11:53] VITALS: BP 132/72; PULSE 61; TEMP 98.1; O2SAT 95
[2024-01-23] MEDS: ONDANSETRON INJ 2 MG/ML 2 ML VIAL IV PRN (12:18)
--- NOTE | 2024-01-23 15:24 | Discharge Summary ---
Date of Service January 23, 2024 Admission HPI Per Admitting Provider Chanelle is an 78-year-old female with a past medical history of dementia, GI bleed, hypertension, hyperlipidemia, cirrhosis, DM 2 recent admission 12/26/2023 - 01/05/2024 after a fall. Presents with weakness and hyponatremia. Scented on referral from [facility] for labs showing low sodium. History is limited from patient due to dementia. Pleasantly confused on admission. Denies pain. Denies fever, chills, sweats, lightheadedness, dizziness, chest pain, chest pressure, ankle pain. She is not sure why she is in the hospital. Medical History: Reviewed Medications: Reviewed Surgical History: Reviewed Family history: Reviewed Allergies: Reviewed Social History: Reviewed Code Status: DNR/DNI, reviewed Admission Exam Per Admitting Provider General: A&O to name only. NAD. Cooperative. HEENT: Atraumatic, normocephalic. PERLAA. Vision and hearing grossly intact Pulm: CTAB A&P. -wheezes, -rales, -rhonchi. Symmetrical chest rise. No increased work of breathing. No respiratory distress. Cardiac: RRR, soft sm. Radial pulses intact and symmetrical. Abdominal: Nontender, nondistended, soft. BS present. Ext: R ankle minimally TTP at medial at lat malleolus, +medial bruising. Sensation to soft touch intact bilaterlly. Principal Diagnosis Hyponatremia due to dehydration Fall and generalized weakness Discharge Exam General: Awake, conversant Heart: S1, S2/regular rate and rhythm, no murmur rubs or gallops Lungs: Clear to auscultation bilaterally. Normal effort Abdomen: Soft/nontender/nondistended. No hepatosplenomegaly Extremities: No clubbing/cyanosis. No edema Behavior: Appropriate, cooperative Discharge Data Allergies Allergy/AdvReac Type Severity Reaction Status Date / Time bee venom protein (honey bee) Allergy Severe SWELLS UP Verified 12/26/23 19:38 cefazolin Allergy Severe SHORTNESS Verified 12/26/23 19:38 OF BREATH adhesive Allergy Intermediate HIVES WITH Verified 12/26/23 19:38 TAPE azithromycin Allergy Unknown CAN'T Verified 12/26/23 19:38 REMEMBER candesartan AdvReac Intermediate cough Verified 12/26/23 19:38 enalapril AdvReac Intermediate cough Verified 12/26/23 19:38 lisinopril AdvReac Intermediate COUGH Verified 12/26/23 19:38 morphine AdvReac Intermediate ABNORMAL Verified 12/26/23 19:38 DREAMS/PASSED OUT nitroglycerin AdvReac Intermediate GI SYMPTOMS Verified 12/26/23 19:38 Consultations 01/17/24 13:11 ED Decision to Admit Stat Hospital Course (1) Hyponatremia: Hyponatremia -Hypovolemic hyponatremia With associated weakness Now resolved with IV fluids Falls, weakness Multifactoria with deconditioning, and hyponatremia. Also with past history of UTIs PT/OT on board RIGHT Trimalleolar fx - Noted on prior CT. 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 If remaining send patient may get up to 3X 300 mg Venofer doses while inpatient. Discharge to [facility] Total Time Total Time Spent Total Time Spent (In Minutes): 35 Discharge Plan Discharge Items Patient Disposition: Transfer [facility] Reason For Visit: HYPONATREMIA Discharge Diagnosis: Hyponatremia due to dehydration Fall and generalized weakness Activity: Resume your previous activity Non-emergency contact: Primary Care Provider Call non-emergency contact if: you have any medication questions and your symptoms worsen Follow-up/Referrals: Candis Lee DO [Primary Care Provider] - Diet: Carb Consistent or DM2 Diet Texture: Dental soft (bite-sized) Addtl Attending Provider Instructions: Advised to follow-up with PCP in 1 week Pending Studies at Discharge: No Stand-Alone Forms: My [facility] Skilled Items Patient informed of condition?: Yes DNR: Yes Discharge Level of Care: Skilled Communicable Disease: No Discharge Prognosis: Stable Lines: None Urinary Catheter: No Medications and DC Order Prescriptions: Continued multivitamin tablet 1 tab PO QAM donepezil 5 mg tablet 5 mg PO DAILY Qty: 90 2RF magnesium oxide 400 mg (241.3 mg magnesium) tablet 400 mg PO TID Qty: 90 3RF escitalopram oxalate 20 mg tablet 20 mg PO QAM Qty: 90 3RF cetirizine [Zyrtec] 10 mg tablet 10 mg PO DAILY Qty: 90 1RF ipratropium bromide 21 mcg (0.03 %) spray,non-aerosol 2 spray intranasal BID PRN (Reason: chronic cough) Qty: 30 5RF Rx Instructions: administer into each nostril potassium chloride 10 mEq tablet extended release 10 meq PO DAILY Qty: 30 5RF Hold Instructions: Provider's Order pantoprazole [Protonix] 40 mg tablet,delayed release (DR/EC) 40 mg PO BID Qty: 60 5RF levothyroxine [Synthroid] 75 mcg tablet 75 mcg PO DAILY Qty: 30 2RF furosemide [Lasix] 20 mg tablet 20 mg PO DAILY Qty: 30 5RF Hold Instructions: Provider's Order atorvastatin 10 mg tablet 10 mg PO DAILY Qty: 100 3RF (DME) blood-glucose meter [OneTouch Ultra2 Meter] [facility] [place] Rx Instructions .Route Qty: 1 0RF Rx Instructions: testing twice daily DX: E11.9 glycopyrrolate [Robinul] 1 mg tablet 1 mg PO BID Qty: 60 0RF Proair Digihaler 90 mcg/actuation aero powdr breath act w/sensor 2 inh inhalation Q6H Qty: 1 3RF amlodipine 5 mg tablet 5 mg PO DAILY Qty: 30 11RF fluticasone propionate [Flonase Allergy Relief] 50 mcg/actuation spray,suspension 1 spray intranasal DAILY Qty: 16 2RF Rx Instructions: administer into each nostril (DME) OneTouch Verio test strips Strip See Rx Instructions .ROUTE .MEDSUPPLY Qty: 100 11RF Rx Instructions: Testing blood sugar twice daily (DME) [facility] See [facility] Instructions .ROUTE .MEDSUPPLY Qty: 100 3RF Rx Instructions: Testing blood sugar twice daily cyanocobalamin (vitamin B-12) 500 mcg Tablet 1,000 mcg PO QAM Qty: 30 0RF docusate sodium 100 mg Capsule 100 mg PO BID Qty: 20 0RF metformin 500 mg tablet 500 mg PO BID Qty: 60 5RF Discharge Orders: Discharge Order (Routine); Ordered 01/23/24 Ordered By: Claudine Puentes/Other Patient Handouts: What Are Pressure Injuries?, Preventing Pressure Sores, Hyponatremia Dc, Fall Prevention Assessing Risk Admission Data Admit Date/Time: 01/17/24 13:59 Attending Provider: Claudine Oropeza Admit Provider: Walter Cottrell Primary Care Provider: Candis Lee Other Providers: Walter Cottrell; [facility]
[2024-01-23] MEDS ORDERED: ACETAMINOPHEN 325 MG TAB PO SCH (21:00)
== END 2024-01-23 16:19 | DRG 641 ==
LOC: ED 11:52 → SUATTDRO 13:59 → EDINP 13:59 → 4W 16:27

== ENCOUNTER 2024-02-13 10:54 | Observation (INO) ==
[2024-02-13 11:34] LABS: Hematocrit (blood only) 31.5 % (37.0-47.0); Hemoglobin 10.9 g/dl (12.0-16.0); Mean Corpuscular Hemoglobin 27.6 pg (25.0-34.0); Mean Corpuscular Hgb Conc 34.6 g/dL (32.0-36.0); Mean Corpuscular Volume 79.7 fL (80.0-100.0); Mean Platelet Volume 9.8 fL (9.4-12.4); Platelet Count 336 K/uL (130-400); RDW Standard Deviation 52.1 fL (36.4-46.3); Red Blood Count 3.95 M/uL (4.20-5.40); White Blood Count 12.86 K/ul (4.8-10.8)
[2024-02-13] MEDS: SODIUM CHLORIDE 0.9% 500 ML IV SCH (11:35)
--- NOTE | 2024-02-13 11:37 | XRay Report ---
XR chest 1V portable CLINICAL HISTORY: Sepsis TECHNIQUE: Single frontal radiograph of the chest was obtained. Comparison: Comparison is made to chest radiograph of 12/26/2023 FINDINGS: Battery-powered device is again seen. Calcified aortic knob is seen. The lungs are clear. No evidence of pleural effusion or pneumothorax. IMPRESSION: No acute abnormalities and in particular no radiographic evidence of pneumonia. ACT 112: Negative or not required by law. Electronically signed by: Shelton Goins M.D. 02/13/2024 11:35 AM
[2024-02-13 11:48] LABS: Albumin Level 3.9 gm/dl (3.4-5.0); BUN Creatinine Ratio 17.3 (10-20); Bilirubin Direct 0.1 mg/dl (0-0.2); Bilirubin,Total 0.5 mg/dl (0.2-1.0); Creatinine Clr Calc Pharmacy 43.1 ml/min; Est GFR (African American) 58.4 ml/min; Est GFR (Non-African American) 50.3 ml/min; Magnesium 1.6 mg/dl (1.7-2.4); Potassium 4.7 mmol/L (3.5-5.1); Total Protein 6.8 gm/dl (6.0-8.3)
[2024-02-13 11:54] LABS: Troponin I High Sensitivity 8.9 pg/ml (0-14)
[2024-02-13 11:55] LABS: Basophils # (auto) 0.02 K/uL (0.00-0.20); Basophils % (auto) 0.2 %; Eosinophils # (auto) 0.06 K/uL (0.00-0.50); Eosinophils % (auto) 0.5 %; Immature Granulocytes # (auto) 0.19 K/uL (0.01-0.20); Immature Granulocytes % (auto) 1.5 %; Lymphocytes # (auto) 0.47 K/uL (1.20-3.40); Lymphocytes % (auto) 3.7 %; Monocytes # (auto) 0.45 K/uL (0.11-0.59); Monocytes % (auto) 3.5 %; Neutrophils # (auto) 11.67 K/uL (1.40-6.50); Neutrophils % (auto) 90.6 %
[2024-02-13 11:55] LABS: HCO3 VBG 16 mmol/L; Oxygen Saturation VBG 98.7 %; PCO2 VBG 24 mmHg (38-50); PO2 VBG 74 mmHg; pH VBG 7.44 (7.36-7.41)
[2024-02-13 12:01] LABS: Partial Thromboplastin Ratio 0.8; Partial Thromboplastin Time 21 Seconds (21-31)
[2024-02-13] MEDS: SODIUM CHLORIDE 0.9% 1,000 ML IV SCH (12:07)
--- NOTE | 2024-02-13 12:26 | Emergency Department Note ---
History of Present Illness General Chief complaint: Illness Stated complaint: SOB Time Seen by Provider: 02/13/24 11:09 Source: family ( at bedside) History of Present Illness Provider complaint: Weakness shortness of breath 79-year-old female with history of dementia who is COVID positive presents emergency department with for weakness and shortness of breath. reports that he had to move her into a residential because she is so weak. He reports that overnight she became more difficult breathing and more confusion so she was referred to the emergency department from her residential. Home Medications Medication Instructions Recorded Confirmed Type magnesium oxide 400 mg (241.3 mg 400 mg PO TID #90 tabs 12/30/22 02/13/24 Rx magnesium) tablet escitalopram oxalate 20 mg tablet 20 mg PO QAM #90 tabs 05/24/23 02/13/24 Rx pantoprazole 40 mg tablet,delayed 40 mg PO BID #60 tabs 11/03/23 02/13/24 Rx release (Protonix) metformin 500 mg tablet 500 mg PO BID #60 tabs 11/22/23 02/13/24 Rx blood-glucose meter (OneTouch #1 ea 12/05/23 12/11/23 Rx Ultra2 Meter) blood sugar diagnostic (OneTouch #100 ea 12/11/23 12/11/23 Rx Verio test strips) lancets 33 gauge #100 ea 12/11/23 12/11/23 Rx acetaminophen 325 mg tablet 650 mg PO BID 02/13/24 02/13/24 History (Tylenol) acetaminophen 325 mg tablet 650 mg PO Q4H PRN Pain/Fever 02/13/24 02/13/24 History (Tylenol) albuterol sulfate 90 mcg/actuation 2 inh inhalation Q6H PRN cough 02/13/24 02/13/24 History breath activated powder inhaler,sensor (Proair Digihaler) amlodipine 5 mg tablet 5 mg PO QAM 02/13/24 02/13/24 History aspirin 81 mg tablet,delayed 81 mg PO BID 02/13/24 02/13/24 History release atorvastatin 10 mg tablet 10 mg PO QAM 02/13/24 02/13/24 History benzonatate 100 mg capsule 100 mg PO TID PRN Cough 02/13/24 02/13/24 History bisacodyl 10 mg rectal suppository 10 mg UT DAILY PRN Constipation 02/13/24 02/13/24 History cetirizine 5 mg tablet 5 mg PO QAM 02/13/24 02/13/24 History clotrimazole 1 % topical cream 1 applic topical BID Perineum Rash 02/13/24 02/13/24 History cyanocobalamin (vitamin B-12) 1,000 mcg PO QPM 02/13/24 02/13/24 History 1,000 mcg tablet (Vitamin B-12) dextrose 40 % oral gel (Glucose See Rx Instructions .Route 02/13/24 02/13/24 History Gel) .COMPLEX PRN Hypoglycemia dextrose 50 % in water (D50W) See Rx Instructions .Route .COMPLEX 02/13/24 02/13/24 History donepezil 5 mg tablet 5 mg PO QAM 02/13/24 02/13/24 History food supplemt, lactose-reduced 1 ea PO BID 02/13/24 02/13/24 History furosemide 20 mg tablet (Lasix) 20 mg PO QAM 02/13/24 02/13/24 History glucagon HCl 1 mg solution for See Rx Instructions .Route 02/13/24 02/13/24 History injection (Glucagon (HCl) .COMPLEX PRN Hypoglycemia Emergency Kit) glycopyrrolate 1 mg tablet 1 mg PO HS 02/13/24 02/13/24 History (Robcontrerasul) guaifenesin 100 mg/5 mL oral 200 mg PO Q4H PRN Cough 02/13/24 02/13/24 History liquid (Tussin) ipratropium 0.5 mg-albuterol 3 mg 3 ml inhalation QID 02/13/24 02/13/24 History (2.5 mg base)/3 mL nebulization soln ipratropium bromide 21 mcg (0.03 2 spray intranasal BID Chronic 02/13/24 02/13/24 History %) nasal spray Cough levothyroxine 75 mcg tablet 75 mcg PO DAILYBB 02/13/24 02/13/24 History magnesium hydroxide 400 mg/5 mL 2,400 mg PO DAILY PRN Constipation 02/13/24 02/13/24 History oral suspension (Milk of Magnesia) multivitamin with folic acid 400 1 tab PO QAM 02/13/24 02/13/24 History mcg tablet (High Potency Multivitamin) ondansetron HCl 4 mg tablet 4 mg PO Q6H PRN Nausea And Vomiting 02/13/24 02/13/24 History potassium chloride 10 mEq 10 meq PO QAM 02/13/24 02/13/24 History tablet,extended release prednisone 10 mg tablet See Rx Instructions .Route .COMPLEX 02/13/24 02/13/24 History saliva substitute combo no.9 5 ml PO QID 02/13/24 02/13/24 History (Biotene Dry Mouth Oral Rinse mouthwash) sennosides 8.6 mg-docusate sodium 1 tab-cap PO BID 02/13/24 02/13/24 History 50 mg tablet (Stimulant Laxative Plus) sodium chloride 1,000 mg soluble 1,000 mg PO BID 02/13/24 02/13/24 History tablet sodium phosphates 19 gram-7 118 ml UT DAILY PRN Constipation 02/13/24 02/13/24 History gram/118 mL enema (Fleet Enema) white petrolatum (Petroleum Jelly 1 applic topical DAILY PRN 02/13/24 02/13/24 History topical) irritation Allergies Allergy/AdvReac Type Severity Reaction Status Date / Time bee venom protein (honey bee) Allergy Severe SWELLS UP Verified 02/13/24 16:04 cefazolin Allergy Severe SHORTNESS Verified 02/13/24 16:04 OF BREATH adhesive Allergy Intermediate HIVES WITH Verified 02/13/24 16:04 TAPE azithromycin Allergy Unknown CAN'T Verified 02/13/24 16:04 REMEMBER candesartan AdvReac Intermediate cough Verified 02/13/24 16:04 enalapril AdvReac Intermediate cough Verified 02/13/24 16:04 lisinopril AdvReac Intermediate COUGH Verified 02/13/24 16:04 morphine AdvReac Intermediate ABNORMAL Verified 02/13/24 16:04 DREAMS/PASSED OUT nitroglycerin AdvReac Intermediate GI SYMPTOMS Verified 12/26/23 19:38 Past Med/Surg History Problem List (Updated 02/13/24 @ 17:17 by Judah Comer MD) Sepsis (Acute) COVID-19 (Acute) Weakness (Acute) Anemia (Acute) Acute hyponatremia (Acute) Fibula fracture (12/26/23) right trimalleolar fractures from a fall Fall (Acute) Acute hyponatremia (Acute) Anemia (Acute) Syncope (Acute) Dehydration Ankle pain, right Fall Anemia (Acute) Constipation Encounter for interrogation of cardiac recorder Cough Chronic cough Allergic rhinitis Recurrent syncope Status post placement of implantable loop recorder Hypomagnesemia History of syncope hx- no issues in years ADMITTED [facility] 12/31/18-EKG/ECHO /HOLTER MONITOR-NO DIAGNOSIS PER PT- Cirrhosis LGI bleed 03/[place]22 [place] Dementia Asthma mild, rarley uses inhaler GERD (gastroesophageal reflux disease) Anxiety and depression Lumbar spinal stenosis TMJ syndrome Type 2 diabetes mellitus Hypertension Hypothyroidism Medical History Hyponatremia Acute kidney injury Refusal of blood transfusions as patient is Caodaism Hyperlipidemia Vitamin D deficiency Falls frequently Syncope, vasovagal Seasonal allergies mild Implantable loop recorder present follows w/ Dr Milian last visit 02/2022 Acute upper GI bleed Nausea and vomiting after administration of anesthetic agent Surgical History History of esophagogastroduodenoscopy (EGD) Hx of colonoscopy Status post total hip replacement, 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) S/P total hysterectomy and bilateral salpingo-oophorectomy S/P tonsillectomy S/P cholecystectomy S/P appendectomy Family History Father Hypertension Myocardial infarction Diabetes Coronary heart disease Sister Coronary heart disease Mother Diabetes Myocardial infarction Coronary heart disease Hypertension Denies family history of Ovarian cancer Prostate cancer Breast cancer Colorectal cancer Social History Smoking Status: Never smoker Second Hand Exposure: No; Do You Dip or Chew Tobacco: No; Hx Alcohol Use: No Hx Substance Use: No Preferred Language: Danish Communication Ability: Impaired Visual Impairment: Limited Hearing Ability: Normal Logistics Administrator Required: No Beliefs That Will Affect Care: Caodaism Caodaism Beliefs: Jehovah Witness - no blood products marital status: Current Living Situation: Senior Living Current Living Situation Comment: From [place] current occupational status: retired Feels Safe at Home: Yes Childhood Exposure to Second-Hand Smoke: No Diet: regular Diet Comment: regular caffeine: No during the past year weight has: remained stable Dental Care, Regularly: Yes Physical Activity Frequency: 1-2 Times per Week Seatbelt Use: always Sunscreen Use: Yes Assistive Devices: Bedside Commode, Stair Lift and Walker Physical Exam Vital Signs Vital Signs - 24 hr 02/13/24 11:02 02/13/24 12:03 02/13/24 12:59 Temperature 37 C Temperature Source Oral Pulse Rate 83 87 Pulse Rate [Apical] 84 Pulse Rhythm [Apical] Respiratory Rate 18 19 Respiratory Effort / Characteristics Non-Labored Spontaneous Non-Labored Spontaneous Respiratory Depth Normal Normal Respiratory Pattern Regular Regular Blood Pressure 130/63 Blood Pressure [Left Arm] 129/61 Blood Pressure Mean 85 Blood Pressure Mean [Left Arm] 83 Blood Pressure Position [Left Arm] Lying Pulse Oximetry 98 97 Oxygen Delivery Method Room Air Room Air Sepsis Recent Fever Within 48 Hours No Sepsis New/Unexplained Change in Mental Status No Sepsis Action Taken by Nursing No Action Required 02/13/24 14:00 Temperature Temperature Source Pulse Rate Pulse Rate [Apical] 81 Pulse Rhythm [Apical] Regular Respiratory Rate 16 Respiratory Effort / Characteristics Respiratory Depth Respiratory Pattern Blood Pressure Blood Pressure [Left Arm] 142/73 H Blood Pressure Mean Blood Pressure Mean [Left Arm] 96 Blood Pressure Position [Left Arm] Pulse Oximetry 96 Oxygen Delivery Method Room Air Sepsis Recent Fever Within 48 Hours Sepsis New/Unexplained Change in Mental Status Sepsis Action Taken by Nursing Physical Exam HENT: Exam performed. - Head: Normocephalic and atraumatic. EYES: Conjunctivae and EOM are normal. Right eye exhibits no discharge. Left eye exhibits no discharge. No scleral icterus. NECK: Normal range of motion. Neck supple. No JVD present. CV: Normal rate, regular rhythm, normal heart sounds and intact distal pulses. There is no peripheral edema. Palpable radial pulses bue. PULM/CHEST: Effort normal and breath sounds normal. No respiratory distress. No stridor. no wheezes. no rales. ABD: The abdomen is soft. There is no tenderness. NEURO: Motor and sensation grossly intact. Course Course 1109: The patient was evaluated in room B5. A complete history and physical exam was performed Cardiac monitoring: An order was placed for continuous cardiac monitoring. The monitor shows a rate of 90 with sinus rhythm interpreted by me 1200: Vital signs stable. Patient's lactic acid 5.4. Sodium 121. 30 cc/kg normal saline bolus ordered for the patient. 1400: Vital signs stable. White blood cell count 12.86. VBG shows a venous pH of 7.44 venous pCO2 of 24 bicarb 16. Sodium 121. Chloride 88 carbon dioxide 20. No reported seizure-like activity. Urinalysis negative. Procalcitonin negative. Patient's lactic acidemia is probably thought to be due to volume depletion secondary to her COVID infection. Given the normal procalcitonin level, is thought to be less likely a bacterial infection, and no antibiotics given at this time. Patient still receiving 30 cc/kg normal saline bolus. CT of the head and CTA of the chest are unremarkable. [facility] will be [facility]. Administered Medications Discontinued Medications Sodium Chloride (Nss) 500 mls @ 999 mls/hr IV .Q31M CHICO Stop: 02/13/24 11:45 Last Infusion: 02/13/24 12:07 Dose: Infused Documented By: Admin: 02/13/24 11:35 Dose: 999 mls/hr Documented By: JHONATHAN Sodium Chloride (Nss) 1,000 mls @ 999 mls/hr IV .Q1H1M CHICO Stop: 02/13/24 14:00 Last Admin: 02/13/24 13:29 Dose: 999 mls/hr Documented By: Infusion: 02/13/24 13:08 Dose: Infused Documented By: Admin: 02/13/24 12:07 Dose: 999 mls/hr Documented By: LORAINE Magnesium Sulfate/Dextrose (Magnesium Sulfate / D5w) 1 gm in 100 mls @ 100 mls/hr IV NOW STA Stop: 02/13/24 16:50 Last Admin: 02/13/24 15:59 Dose: 100 mls/hr Documented By: MUKUND Ioversol (Optiray 320 125ml) 112 ml IV ONCE ONE Stop: 02/13/24 12:40 Last Admin: 02/13/24 12:40 Dose: 112 ml Documented By: MARIO Critical Care Time Critical Care Time: Yes Total Critical Care Time: 81 I have personally spent greater than 81 minutes of critical care time in the direct management of this patient. This includes bedside care, interpretation of diagnostic studies, and testing, discussion with consultants, patient, and family members, and other required patient management activities. This 81 minutes is in excess of all separately billable procedures. Medical Decision Making Laboratory Data Attestation: I reviewed the patient's lab results. 02/13/24 11:10 09/24/24 11:10 Lab Results 02/13/24 02/13/24 02/13/24 Range/Units 11:10 11:39 14:00 WBC 12.86 H (4.8-10.8) K/ul RBC 3.95 L (4.20-5.40) M/uL Hgb 10.9 L (12.0-16.0) g/dl Hct 31.5 L (37.0-47.0) % MCV 79.7 L (80.0-100.0) fL MCH 27.6 (25.0-34.0) pg MCHC 34.6 (32.0-36.0) g/dL RDW Std Deviation 52.1 H (36.4-46.3) fL RDW Coeff of [place] 18.0 H (11.5-14.5) % Plt Count 336 (130-400) K/uL MPV 9.8 (9.4-12.4) fL Immature Gran % (Auto) 1.5 % Neut % (Auto) 90.6 % Lymph % (Auto) 3.7 % Cobb % (Auto) 3.5 % Eos % (Auto) 0.5 % Baso % (Auto) 0.2 % Neut # (Auto) 11.67 H (1.40-6.50) K/uL Lymph # (Auto) 0.47 L (1.20-3.40) K/uL Cobb # (Auto) 0.45 (0.11-0.59) K/uL Eos # (Auto) 0.06 (0.00-0.50) K/uL Baso # (Auto) 0.02 (0.00-0.20) K/uL Immature Gran # (Auto) 0.19 (0.01-0.20) K/uL PT 11.0 (9.0-12.0) Seconds INR 1.0 (0.9-1.1) APTT 21 (21-31) Seconds PTT Ratio 0.8 VBG pH 7.44 H (7.36-7.41) VBG pCO2 24 L (38-50) mmHg VBG pO2 74 mmHg VBG HCO3 16 mmol/L VBG O2 Saturation 98.7 % VBG Base Excess -6.0 mEq/L Sodium 121 L (136-145) mmol/L Potassium 4.7 (3.5-5.1) mmol/L Chloride 88 L (98-107) mmol/L Carbon Dioxide 20 L (21-32) mmol/L Anion Gap 13 H (3-11) BUN 18 (6-23) mg/dl Creatinine 1.04 (0.6-1.2) mg/dl Est Cr Clr Drug Dosing 43.1 ml/min Est GFR ( Amer) 58.4 ml/min Est GFR (Non-Af Amer) 50.3 ml/min BUN/Creatinine Ratio 17.3 (10-20) Glucose 201 H (70-99(Fasting)) mg/dl Lactate 5.4 H* (0.4-2.0) mmol/L Calcium 9.0 (8.6-10.3) mg/dl Magnesium 1.6 L (1.7-2.4) mg/dl Total Bilirubin 0.5 (0.2-1.0) mg/dl Direct Bilirubin 0.1 (0-0.2) mg/dl AST 49 H (13-39) U/L ALT 30 (7-52) U/L Alkaline Phosphatase 80 (34-104) U/L Troponin I High Sens 8.9 (0-14) pg/ml Total Protein 6.8 (6.0-8.3) gm/dl Albumin 3.9 (3.4-5.0) gm/dl Procalcitonin 0.07 (0-0.5) ng/ml Urine Color Yellow Urine Appearance Clear (Clear) Urine pH 5.5 (4.5-7.5) Ur Specific [place] 1.016 (1.000-1.030) Urine Protein Negative (Negative) Urine Glucose (UA) Negative (Negative) Urine Ketones Negative (Negative) Urine Blood Negative (Negative) Urine Nitrite Negative (Negative) Urine Bilirubin Negative (Negative) Urine Urobilinogen Negative (Negative) Ur Leukocyte Esterase 3+ H (Negative) Urine WBC (Auto) 6-10 H (0-5) /hpf Urine RBC (Auto) 3-5 H (0-2) /hpf U Hyaline Cast (Auto) 0-2 (0-2) /lpf U Epithel Cells (Auto) 0-2 (0-2) /hpf Urine Bacteria (Auto) None Seen (None Seen) SARS-CoV-2 (PCR) (Negative) Influenza Type A (PCR) (Neg) Influenza Type B (PCR) (Neg) RSV (RT-PCR) (Neg) 02/13/24 02/13/24 Range/Units 14:20 14:49 WBC (4.8-10.8) K/ul RBC (4.20-5.40) M/uL Hgb (12.0-16.0) g/dl Hct (37.0-47.0) % MCV (80.0-100.0) fL MCH (25.0-34.0) pg MCHC (32.0-36.0) g/dL RDW Std Deviation (36.4-46.3) fL RDW Coeff of [place] (11.5-14.5) % Plt Count (130-400) K/uL MPV (9.4-12.4) fL Immature Gran % (Auto) % Neut % (Auto) % Lymph % (Auto) % Cobb % (Auto) % Eos % (Auto) % Baso % (Auto) % Neut # (Auto) (1.40-6.50) K/uL Lymph # (Auto) (1.20-3.40) K/uL Cobb # (Auto) (0.11-0.59) K/uL Eos # (Auto) (0.00-0.50) K/uL Baso # (Auto) (0.00-0.20) K/uL Immature Gran # (Auto) (0.01-0.20) K/uL PT (9.0-12.0) Seconds INR (0.9-1.1) APTT (21-31) Seconds PTT Ratio VBG pH (7.36-7.41) VBG pCO2 (38-50) mmHg VBG pO2 mmHg VBG HCO3 mmol/L VBG O2 Saturation % VBG Base Excess mEq/L Sodium (136-145) mmol/L Potassium (3.5-5.1) mmol/L Chloride (98-107) mmol/L Carbon Dioxide (21-32) mmol/L Anion Gap (3-11) BUN (6-23) mg/dl Creatinine (0.6-1.2) mg/dl Est Cr Clr Drug Dosing ml/min Est GFR ( Amer) ml/min Est GFR (Non-Af Amer) ml/min BUN/Creatinine Ratio (10-20) Glucose (70-99(Fasting)) mg/dl Lactate 5.1 H* (0.4-2.0) mmol/L Calcium (8.6-10.3) mg/dl Magnesium (1.7-2.4) mg/dl Total Bilirubin (0.2-1.0) mg/dl Direct Bilirubin (0-0.2) mg/dl AST (13-39) U/L ALT (7-52) U/L Alkaline Phosphatase (34-104) U/L Troponin I High Sens (0-14) pg/ml Total Protein (6.0-8.3) gm/dl Albumin (3.4-5.0) gm/dl Procalcitonin (0-0.5) ng/ml Urine Color Urine Appearance (Clear) Urine pH (4.5-7.5) Ur Specific [place] (1.000-1.030) Urine Protein (Negative) Urine Glucose (UA) (Negative) Urine Ketones (Negative) Urine Blood (Negative) Urine Nitrite (Negative) Urine Bilirubin (Negative) Urine Urobilinogen (Negative) Ur Leukocyte Esterase (Negative) Urine WBC (Auto) (0-5) /hpf Urine RBC (Auto) (0-2) /hpf U Hyaline Cast (Auto) (0-2) /lpf U Epithel Cells (Auto) (0-2) /hpf Urine Bacteria (Auto) (None Seen) SARS-CoV-2 (PCR) POSITIVE A (Negative) Influenza Type A (PCR) Negative (Neg) Influenza Type B (PCR) Negative (Neg) RSV (RT-PCR) Negative (Neg) Imaging Data Attestation: I personally reviewed and interpreted this imaging study as follows: My Impression: Chest x-ray negative. Airway clear. No pneumothorax. No consolidation. No cardiomegaly or cephalization.. No free air under the diaphragm. No fractures of the skeletal structures. Radiologist's Impression: Chest X-Ray 02/13/24 11:09 XR chest 1V portable CLINICAL HISTORY: Sepsis TECHNIQUE: Single frontal radiograph of the chest was obtained. Comparison: Comparison is made to chest radiograph of 12/26/2023 FINDINGS: Battery-powered device is again seen. Calcified aortic knob is seen. The lungs are clear. No evidence of pleural effusion or pneumothorax. IMPRESSION: No acute abnormalities and in particular no radiographic evidence of pneumonia. ACT 112: Negative or not required by law. Electronically signed by: Shelton Goins M.D. 02/13/2024 11:35 AM Chest CTA 02/13/24 11:58 CT ANGIOGRAM OF THE CHEST CLINICAL HISTORY: Fatigue. Generalized weakness. Covid. COMPARISON STUDY: Chest x-ray dated 02/13/2024. Chest CT dated 11/20/2023. TECHNIQUE: Following the IV administration of 112 cc of Optiray 320, CT angiogram of the chest was performed from the upper abdomen to the thoracic inlet utilizing the pulmonary embolus protocol. Images are reviewed in the axial, sagittal, and coronal planes. 3-D MIPS images are created and assessed. IV contrast was administered without complication. A dose lowering technique was utilized adhering to the principles of ALARA. Examination is significantly compromised by motion artifact. There is also streak artifact from the arms which could not be elevated above the chest. CT DOSE: 1068.53 mGy.cm FINDINGS: Thyroid: Atrophic. Thoracic aorta: There is atherosclerotic calcification of the thoracic aorta, which is normal in caliber and demonstrates standard 3-vessel arch anatomy. No dissection is seen. Pulmonary vasculature: The pulmonary trunk is normal in caliber. There are no filling defects identified in main, lobar, or segmental pulmonary branches to suggest pulmonary embolus. Evaluation of the peripheral branches is degraded by streak and motion artifact. Heart: The heart is enlarged and without pericardial effusion. Lungs and pleural spaces: Evaluation of the lung parenchyma is compromised by motion artifact. No airspace consolidation or pleural effusion is seen. Foci of scarring/atelectasis are seen throughout both lungs. The trachea and central airways appear clear. Mediastinum: There is no mediastinal lymphadenopathy. Vanessa: Clear. Axillae: There is no axillary lymphadenopathy. Upper abdomen: Cholecystectomy clips are noted. The liver is cirrhotic in morphology. Ascites is seen in the upper abdomen. Skeletal structures: The skeletal structures are osteopenic. Degenerative change is noted in the shoulders and spine. No lytic or blastic bony lesions are seen. IMPRESSION: 1. There is no evidence of pulmonary embolus in the main, lobar, or segmental pulmonary arteries. 2. Cardiomegaly. 3. No airspace consolidation or pleural effusion is identified. 4. Cirrhotic liver morphology and abdominal ascites. 5. Additional findings as above. ACT 112: Negative or not required by law. Electronically signed by: Remigio Carrasquillo M.D. 02/13/2024 1:[address] 02/13/24 11:58 CT head/brain wo con CLINICAL HISTORY: weakness Technique: Contiguous axial CT images of the head were acquired from the base of the skull to the vertex without intravenous contrast administration. Images were viewed in brain, subdural and bone windows. Automated dose lowering techniques and/or adjustment according to patient size were utilized for this exam. Comparison: None available at the time of this dictation. Findings: Areas of decreased attenuation are present in the periventricular and subcortical white matter bilaterally consistent with small vessel ischemic disease. Generalized cerebral atrophy with commensurate enlargement of the ventricles, sulci, and cisterns is also present. There is no acute intracranial hemorrhage or evidence of acute territorial infarction. No shift of the midline structures, mass effect, or extra-axial abnormalities are shown. Atherosclerotic calcifications are present in the intracranial segments of the internal carotid arteries. Imaged portions of the paranasal sinuses and mastoid air cells are clear. The orbits appear normal. There are no acute fractures of the calvaria or scalp swelling. Impression: No acute intracranial hemorrhage, no evidence of acute territorial infarction or other acute intracranial disease process. ACT 112: Negative or not required by law. Electronically signed by: Shelton Goins M.D. 02/13/2024 12:51 PM ECG Data Attestation: I personally reviewed and interpreted this ECG as follows: Rate (beats per minute): 87 Rhythm: + normal sinus ECG Intervals/blocks: + Normal QRS, + Normal UT and + Normal QT-c ECG ST segments: + Normal ST segments [facility] Narrative 1109: The patient was evaluated in room B5. A complete history and physical exam was performed Cardiac monitoring: An order was placed for continuous cardiac monitoring. The monitor shows a rate of 90 with sinus rhythm interpreted by il 1200: Vital signs stable. Patient's lactic acid 5.4. Sodium 121. 30 cc/kg normal saline bolus ordered for the patient. 1400: Vital signs stable. White blood cell count 12.86. VBG shows a venous pH of 7.44 venous pCO2 of 24 bicarb 16. Sodium 121. Chloride 88 carbon dioxide 20. No reported seizure-like activity. Urinalysis negative. Procalcitonin negative. Patient's lactic acidemia is probably thought to be due to volume depletion secondary to her COVID infection. Given the normal procalcitonin level, is thought to be less likely a bacterial infection, and no antibiotics given at this time. Patient still receiving 30 cc/kg normal saline bolus. CT of the head and CTA of the chest are unremarkable. Patient be admitted to the [facility] hospitalist team Dr. Moya's team will be notified. Impression & Plan COVID-19, Sepsis Discharge Plan Visit Data Chief Complaint: Illness Stated Complaint: SOB ED Provider: Judah Comer Discharge Problem: COVID-19, Sepsis Patient Disposition: Admitted As Inpatient Forms Stand Alone Forms: My [facility] Prescriptions Prescriptions: No Action magnesium oxide 400 mg (241.3 mg magnesium) tablet 400 mg PO TID Qty: 90 3RF escitalopram oxalate 20 mg tablet 20 mg PO QAM Qty: 90 3RF pantoprazole [Protonix] 40 mg tablet,delayed release (DR/EC) 40 mg PO BID Qty: 60 5RF (DME) blood-glucose meter [OneTouch Ultra2 Meter] Misc See Rx Instructions .Route Qty: 1 0RF Rx Instructions: testing twice daily DX: E11.9 (DME) OneTouch Verio test strips Strip See Rx Instructions .ROUTE .MEDSUPPLY Qty: 100 11RF Rx Instructions: Testing blood sugar twice daily (DME) lancets 33 gauge misc See Rx Instructions .ROUTE .MEDSUPPLY Qty: 100 3RF Rx Instructions: Testing blood sugar twice daily metformin 500 mg tablet 500 mg PO BID Qty: 60 5RF Rx Instructions: After breakfast and Supper acetaminophen [Tylenol] 325 mg Tablet 650 mg PO BID MDD 3g/24hr acetaminophen [Tylenol] 325 mg Tablet 650 mg PO Q4H MDD 3g/24hr PRN (Reason: Pain/Fever) ipratropium-albuterol [DuoNeb] 0.5 mg-3 mg(2.5 mg base)/3 mL Solution For Nebulization 3 ml INHALATION QID Rx Instructions: Start Date 02/08/24 - End Date 02/15/24 cetirizine 5 mg Tablet 5 mg PO QAM ondansetron HCl [Zofran] 4 mg Tablet 4 mg PO Q6H PRN (Reason: Nausea And Vomiting) sennosides-docusate sodium [Stimulant Laxative Plus] 8.6-50 mg Tablet 1 tab-cap PO BID dextrose [Glucose Gel] 40 % Gel See Rx Instructions .ROUTE .COMPLEX PRN (Reason: Hypoglycemia) Rx Instructions: Give 1 tube by mouth then recheck BG levels. Only give if pt can swallow. cyanocobalamin (vitamin B-12) [Vitamin B-12] 1,000 mcg Tablet 1,000 mcg PO QPM aspirin 81 mg Tablet,Delayed Release (Dr/Ec) 81 mg PO BID Rx Instructions: Start Date 01/10/24 - End Date 02/21/24 guaifenesin [Tussin] 100 mg/5 mL Liquid 200 mg PO Q4H PRN (Reason: Cough) Rx Instructions: Start Date 02/06/24 - End Date 02/15/24 levothyroxine 75 mcg Tablet 75 mcg PO DAILYBB magnesium hydroxide [Milk of Magnesia] 400 mg/5 mL Suspension 2,400 mg PO DAILY PRN (Reason: Constipation) Rx Instructions: Give if no BM in 3 days; administer on 4th day in the morning benzonatate 100 mg Capsule 100 mg PO TID PRN (Reason: Cough) bisacodyl 10 mg Suppository 10 mg UT DAILY PRN (Reason: Constipation) Rx Instructions: If MOM is ineffective, give on day 5 of no bowel movement Fleet Enema 19-7 gram/118 mL Enema 118 ml UT DAILY PRN (Reason: Constipation) Rx Instructions: Give if no bowel movement on day 6 if Dulcolax not effective clotrimazole 1 % Cream 1 applic TOPICAL BID Rx Instructions: Start Date 02/01/24 - End Date 02/15/24 white petrolatum [Petroleum Jelly] Gel 1 applic TOPICAL DAILY PRN (Reason: irritation) Boost Liquid 1 ea PO BID Rx Instructions: Prefers Chocolate dextrose 50 % in water (D50W) Syringe See Rx Instructions .ROUTE .COMPLEX Rx Instructions: Dextrose 50% ANISHA 20-50ml slow push IV if glucagon not effective after 15 mins call 911 for ED Evaluation sodium chloride 1,000 mg Tablet,Soluble 1,000 mg PO BID Rx Instructions: At Noon and Bedtime multivitamin with folic acid [High Potency Multivitamin] 400 mcg Tablet 1 tab PO QAM Biotene Dry Mouth Oral Rinse Mouthwash 5 ml PO QID Rx Instructions: Swish and Spit glucagon HCl [Glucagon (HCl) Emergency Kit] 1 mg Recon Soln See Rx Instructions .ROUTE .COMPLEX PRN (Reason: Hypoglycemia) Rx Instructions: Administer 1mg if glucoase remains less than 70 at 15 minutes after glucose gel administration glycopyrrolate [Robinul] 1 mg tablet 1 mg PO HS donepezil 5 mg tablet 5 mg PO QAM atorvastatin 10 mg tablet 10 mg PO QAM potassium chloride 10 mEq tablet extended release 10 meq PO QAM amlodipine 5 mg tablet 5 mg PO QAM furosemide [Lasix] 20 mg tablet 20 mg PO QAM ipratropium bromide 21 mcg (0.03 %) spray,non-aerosol 2 spray intranasal BID Rx Instructions: administer into each nostril Proair Digihaler 90 mcg/actuation aero powdr breath act w/sensor 2 inh inhalation Q6H PRN (Reason: cough) prednisone 10 mg Tablet See Rx Instructions .ROUTE .COMPLEX Rx Instructions: Start date 02/11/14: Take 20mg by mouth once daily x 3 days; then 10mg by mouth once daily x 3 days, then stop. Referrals Referrals: Candis Lee DO [Primary Care Provider] - Discharge Problem: Sepsis Qualifiers: Sepsis type: sepsis due to unspecified organism Sepsis acute organ dysfunction status: unspecified Qualified Code(s): A41.9 - Sepsis, unspecified organism
[2024-02-13] MEDS: OPTIRAY 320 125ml IV ONE (12:40)
--- NOTE | 2024-02-13 12:52 | CT Scan Report ---
CT head/brain wo con CLINICAL HISTORY: weakness Technique: Contiguous axial CT images of the head were acquired from the base of the skull to the jermaine cooper without intravenous contrast administration. Images were viewed in brain, subdural and bone [facility]. Automated dose lowering techniques and/or adjustment according to patient size were utilized for this exam. Comparison: None available at the time of this dictation. Findings: Areas of decreased attenuation are present in the periventricular and subcortical white matter bilate rally consistent with small vessel ischemic disease. Generalized cerebral atrophy with commensurate e nlargement of the ventricles, sulci, and cisterns is also present. There is no acute intracranial hem orrhage or evidence of acute territorial infarction. No shift of the midline structures, mass effect, or extra-axial abnormalities are shown. Atherosclerotic calcifications are present in the intracran ial segments of the internal carotid arteries. Imaged portions of the paranasal sinuses and mastoid air cells are clear. The orbits appear normal. There are no acute fractures of the calvaria or scalp swelling. Impression: No acute intracranial hemorrhage, no evidence of acute territorial infarction or other acute intracra nial disease process. ACT 112: Negative or not required by law. Electronically signed by: Shelton Goins M.D. 02/13/2024 12:51 PM
--- NOTE | 2024-02-13 13:04 | CT Scan Report ---
CT ANGIOGRAM OF THE CHEST CLINICAL HISTORY: Fatigue. Generalized weakness. Covid. COMPARISON STUDY: Chest x-ray dated 02/13/2024. Chest CT dated 11/20/2023. TECHNIQUE: Following the IV administration of 112 cc of Optiray 320, CT angiogram of the chest was pe rformed from the upper abdomen to the thoracic inlet utilizing the pulmonary embolus protocol. Images are reviewed in the axial, sagittal, and coronal planes. 3-D MIPS images are created and assessed. I V contrast was administered without complication. A dose lowering technique was utilized adhering to the principles of ALARA. Examination is significantly compromised by motion artifact. There is also streak artifact from the arms which could not be elevated above the chest. CT DOSE: 1068.53 mGy.cm FINDINGS: Thyroid: Atrophic. Thoracic aorta: There is atherosclerotic calcification of the thoracic aorta, which is normal in william brea and demonstrates standard 3-vessel arch anatomy. No dissection is seen. Pulmonary vasculature: The pulmonary trunk is normal in caliber. There are no filling defects identif ied in main, lobar, or segmental pulmonary branches to suggest pulmonary embolus. Evaluation of the p eripheral branches is degraded by streak and motion artifact. Heart: The heart is enlarged and without pericardial effusion. Lungs and pleural spaces: Evaluation of the lung parenchyma is compromised by motion artifact. No air space consolidation or pleural effusion is seen. Foci of scarring/atelectasis are seen throughout bot h lungs. The trachea and central airways appear clear. Mediastinum: There is no mediastinal lymphadenopathy. Vanessa: Clear. Axillae: There is no axillary lymphadenopathy. Upper abdomen: Cholecystectomy clips are noted. The liver is cirrhotic in morphology. Ascites is seen in the upper abdomen. Skeletal structures: The skeletal structures are osteopenic. Degenerative change is noted in the shou lders and spine. No lytic or blastic bony lesions are seen. IMPRESSION: 1. There is no evidence of pulmonary embolus in the main, lobar, or segmental pulmonary arteries. 2. Cardiomegaly. 3. No airspace consolidation or pleural effusion is identified. 4. Cirrhotic liver morphology and abdominal ascites. 5. Additional findings as above. ACT 112: Negative or not required by law. Electronically signed by: Remigio Carrasquillo M.D. 02/13/2024 1:03 PM
[2024-02-13 14:18] LABS: Appearance Urine Clear (Clear); Bacteria Urine Automated None Seen (None Seen); Bilirubin Urine Negative (Negative); Blood Urine Negative (Negative); Cast Urine Automated 0-2 /lpf (0-2); Color Urine Yellow; Epithelial Cell Urine Auto 0-2 /hpf (0-2); Glucose Urine UA Negative (Negative); Ketones Urine Negative (Negative); Leukocyte Esterase Urine 3+ (Negative); Nitrite Urine Negative (Negative); Protein Urine Negative (Negative); Specific Gravity Urine 1.016 (1.000-1.030); Urobilinogen Urine Negative (Negative); pH Urine 5.5 (4.5-7.5)
[2024-02-13] MEDS: MAGNESIUM SULFATE / D5W 1 GM/100 ML BAG IV STA (15:59)
--- NOTE | 2024-02-13 16:41 | History & Physical Report ---
Date of Service February 13, 2024 Assessment & Plan (1) Hyponatremia: Plan: Pt arrived to ED for generalized weakness and fatigue; recent admission 01/17/24- 01/23/24 for hyponatremia. ED: Na 121; complains of continued fatigue and weakness. Received 30 cc/kg normal saline bolus in ED. 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 If urine Na low, then consistent with solute depletion, will provide caution fluid hydration. - Hold lasix for now - Trend BMP q4hr - PT/OT for weakness - Mg 1.6 in ED, replaced Mag Sulfate/D5W 1g (2) COVID-19: Plan: Diagnosed with COVID-19 on 02/05/2024 at longterm; unsure if provided with antivirals. - Continues to have productive cough and white sputum. - Non-hypoxic and hemodynamically stable - CXR: No acute findings (3) Pain of right lower extremity: Plan: H/o R trimalleolar fx from last admission; was to be no WB x 6 weeks. Nonoperative - Continues to have RLE pain and associated calf-tenderness - Pending venous doppler US RLE, r/o DVT - No D-dimer at this time given dx of COVID-19 and likely abnormal results Plan Type II DM- Goal 110-160 BSG, type II DM diet Anemia- H/o MERRY, [facility] and cannot receive blood products. ED RBC 3.95, Hgb 10.9, Hct 31.5 Dementia- At baseline per , continue Donepezil DVT prophylaxis: SCDs; History of hemorrhage while on pharmacpprophylaxis/LGI bleed Code: DNR/DNI Admission and Anticipated Discharge Date Admission Date: 02/13/24 History of Present Illness Chief Complaint: Weakness and fatigue, hyponatremia Primary Care Provider: Candis Lee DO Pt is an 79 y/o F with PMHx of dementia, HTN, hyperlipidemia, cirrhosis, DMT2, and chronic hyponatremia with recent admission 01/17/24-01/23/24 for hyponatremia and generalized weakness. Pt presents for generalized weakness x 2 days. Pt was diagnosed with COVID-19 02/05/24. Hypertensive while in ED, otherwise vital remained stable. WBC 12.86, RBC 3.95, Hgb 10.9, Hct 31.5, Na 121, AG 13, Mg 1.6, pH 7.44. CO2 21, bicarb 16 lactate 5.4-> 5.1. CXR shows no signs of acute conditions, CTA chest reveals cirrhotic liver and ascites, CT of the head shows no acute conditions. EKG is NSR with PACs and rate 87. No antibiotics started; received 30 cc/kg normal saline bolus. Pt is sitting in her bed at the time of visit with her , Nitin, in the room. History is mainly provided by the patient's . He states that 02/05/2024, pt was diagnosed with COVID-19 after being tested due to exposure at [facility]. She started to have improvement in symptoms of cough and sputum production until 02/09 when she began to experience weakness and fatigue. The weakness continued to worsen and the patient's noticed increased confusion into Sunday 02/11. Pt was brought to the ED from her longterm, [facility] to the ED for ongoing, worsening symptoms. Pt continues to experience SOB, white sputum production, and sinus pressure. Experiencing ongoing pain to RLE s/p R trimalleolar fx. Pt has some burning at her "bottom" which she uses Vaseline for, but no urinary symptoms. Denies RUIZ, vision changes, sore throat, chest pain, abdominal pain, N/V/D/C, numbness/tingling. No additional pain. Admitted to med/surg. Allergies Allergy/AdvReac Type Severity Reaction Status Date / Time bee venom protein (honey bee) Allergy Severe SWELLS UP Verified 02/13/24 16:04 cefazolin Allergy Severe SHORTNESS Verified 02/13/24 16:04 OF BREATH adhesive Allergy Intermediate HIVES WITH Verified 02/13/24 16:04 TAPE azithromycin Allergy Unknown CAN'T Verified 02/13/24 16:04 REMEMBER candesartan AdvReac Intermediate cough Verified 02/13/24 16:04 enalapril AdvReac Intermediate cough Verified 02/13/24 16:04 lisinopril AdvReac Intermediate COUGH Verified 02/13/24 16:04 morphine AdvReac Intermediate ABNORMAL Verified 02/13/24 16:04 DREAMS/PASSED OUT nitroglycerin AdvReac Intermediate GI SYMPTOMS Verified 12/26/23 19:38 Home Medications Medication Instructions Recorded Confirmed Type magnesium oxide 400 mg (241.3 mg 400 mg PO TID #90 tabs 12/30/22 02/13/24 Rx magnesium) tablet escitalopram oxalate 20 mg tablet 20 mg PO QAM #90 tabs 05/24/23 02/13/24 Rx pantoprazole 40 mg tablet,delayed 40 mg PO BID #60 tabs 11/03/23 02/13/24 Rx release (Protonix) metformin 500 mg tablet 500 mg PO BID #60 tabs 11/22/23 02/13/24 Rx blood-glucose meter (OneTouch #1 ea 12/05/23 12/11/23 Rx Ultra2 Meter) blood sugar diagnostic (OneTouch #100 ea 12/11/23 12/11/23 Rx Verio test strips) lancets 33 gauge #100 ea 12/11/23 12/11/23 Rx acetaminophen 325 mg tablet 650 mg PO BID 02/13/24 02/13/24 History (Tylenol) acetaminophen 325 mg tablet 650 mg PO Q4H PRN Pain/Fever 02/13/24 02/13/24 History (Tylenol) albuterol sulfate 90 mcg/actuation 2 inh inhalation Q6H PRN cough 02/13/24 02/13/24 History breath activated powder inhaler,sensor (Proair Digihaler) amlodipine 5 mg tablet 5 mg PO QAM 02/13/24 02/13/24 History aspirin 81 mg tablet,delayed 81 mg PO BID 02/13/24 02/13/24 History release atorvastatin 10 mg tablet 10 mg PO QAM 02/13/24 02/13/24 History benzonatate 100 mg capsule 100 mg PO TID PRN Cough 02/13/24 02/13/24 History bisacodyl 10 mg rectal suppository 10 mg NV DAILY PRN Constipation 02/13/24 02/13/24 History cetirizine 5 mg tablet 5 mg PO QAM 02/13/24 02/13/24 History clotrimazole 1 % topical cream 1 applic topical BID Perineum Rash 02/13/24 02/13/24 History cyanocobalamin (vitamin B-12) 1,000 mcg PO QPM 02/13/24 02/13/24 History 1,000 mcg tablet (Vitamin B-12) dextrose 40 % oral gel (Glucose See Rx Instructions .Route 02/13/24 02/13/24 History Gel) .COMPLEX PRN Hypoglycemia dextrose 50 % in water (D50W) See Rx Instructions .Route .COMPLEX 02/13/24 02/13/24 History donepezil 5 mg tablet 5 mg PO QAM 02/13/24 02/13/24 History food supplemt, lactose-reduced 1 ea PO BID 02/13/24 02/13/24 History furosemide 20 mg tablet (Lasix) 20 mg PO QAM 02/13/24 02/13/24 History glucagon HCl 1 mg solution for See Rx Instructions .Route 02/13/24 02/13/24 History injection (Glucagon (HCl) .COMPLEX PRN Hypoglycemia Emergency Kit) glycopyrrolate 1 mg tablet 1 mg PO HS 02/13/24 02/13/24 History (Robinul) guaifenesin 100 mg/5 mL oral 200 mg PO Q4H PRN Cough 02/13/24 02/13/24 History liquid (Tussin) ipratropium 0.5 mg-albuterol 3 mg 3 ml inhalation QID 02/13/24 02/13/24 History (2.5 mg base)/3 mL nebulization soln ipratropium bromide 21 mcg (0.03 2 spray intranasal BID Chronic 02/13/24 02/13/24 History %) nasal spray Cough levothyroxine 75 mcg tablet 75 mcg PO DAILYBB 02/13/24 02/13/24 History magnesium hydroxide 400 mg/5 mL 2,400 mg PO DAILY PRN Constipation 02/13/24 02/13/24 History oral suspension (Milk of Magnesia) multivitamin with folic acid 400 1 tab PO QAM 02/13/24 02/13/24 History mcg tablet (High Potency Multivitamin) ondansetron HCl 4 mg tablet 4 mg PO Q6H PRN Nausea And Vomiting 02/13/24 02/13/24 History potassium chloride 10 mEq 10 meq PO QAM 02/13/24 02/13/24 History tablet,extended release prednisone 10 mg tablet See Rx Instructions .Route .COMPLEX 02/13/24 02/13/24 History saliva substitute combo no.9 5 ml PO QID 02/13/24 02/13/24 History (Biotene Dry Mouth Oral Rinse mouthwash) sennosides 8.6 mg-docusate sodium 1 tab-cap PO BID 02/13/24 02/13/24 History 50 mg tablet (Stimulant Laxative Plus) sodium chloride 1,000 mg soluble 1,000 mg PO BID 02/13/24 02/13/24 History tablet sodium phosphates 19 gram-7 118 ml NV DAILY PRN Constipation 02/13/24 02/13/24 History gram/118 mL enema (Fleet Enema) white petrolatum (Petroleum Jelly 1 applic topical DAILY PRN 02/13/24 02/13/24 History topical) irritation Past Med/Surg History Problem List (Updated 02/13/24 @ 18:13 by Dionisio Patel PA-C) Pain of right lower extremity Sepsis (Acute) COVID-19 (Acute) Weakness (Acute) Anemia (Acute) Acute hyponatremia (Acute) Fibula fracture (12/26/23) right trimalleolar fractures from a fall Fall (Acute) Acute hyponatremia (Acute) Anemia (Acute) Syncope (Acute) Dehydration Ankle pain, right Fall Anemia (Acute) Constipation Encounter for interrogation of cardiac recorder Cough Chronic cough Allergic rhinitis Recurrent syncope Status post placement of implantable loop recorder Hypomagnesemia History of syncope hx- no issues in years ADMITTED [facility] 12/31/18-EKG/ECHO /HOLTER MONITOR-NO DIAGNOSIS PER PT- Cirrhosis LGI bleed 03/2022 admitted [facility] Dementia Asthma mild, rarley uses inhaler GERD (gastroesophageal reflux disease) Anxiety and depression Lumbar spinal stenosis TMJ syndrome Type 2 diabetes mellitus Hypertension Hypothyroidism Medical History Hyponatremia Acute kidney injury Refusal of blood transfusions as patient is [facility] Hyperlipidemia Vitamin D deficiency Falls frequently Syncope, vasovagal Seasonal allergies mild Implantable loop recorder present follows w/ Dr Milian last visit 02/2022 Acute upper GI bleed Nausea and vomiting after administration of anesthetic agent Surgical History History of esophagogastroduodenoscopy (EGD) Hx of colonoscopy Status post total hip replacement, 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) S/P total hysterectomy and bilateral salpingo-oophorectomy S/P tonsillectomy S/P cholecystectomy S/P appendectomy Family History Father Hypertension Myocardial infarction Diabetes Coronary heart disease Sister Coronary heart disease Mother Diabetes Myocardial infarction Coronary heart disease Hypertension Denies family history of Ovarian cancer Prostate cancer Breast cancer Colorectal cancer Social History Smoking Status: Never smoker Second Hand Exposure: No; Do You Dip or Chew Tobacco: No; Tobacco Cessation Education Requested by Patient: No Hx Alcohol Use: No Hx Substance Use: No Preferred Language: Korean Communication Ability: Effective Visual Impairment: Limited Hearing Ability: Normal Skid Road Man Required: No Beliefs That Will Affect Care: None marital status: Current Living Situation: Half-Way Current Living Situation Comment: From [place] current occupational status: retired Feels Safe at Home: Yes Safety Concerns: Feels Safe At This Time Childhood Exposure to Second-Hand Smoke: No Diet: regular Diet Comment: regular caffeine: No during the past year weight has: remained stable Dental Care, Regularly: Yes Physical Activity Frequency: 1-2 Times per Week Seatbelt Use: always Sunscreen Use: Yes Assistive Devices: Walker Review of Systems Constitutional: + fatigue and + weakness; no fever, no c hills, no sweats and no weight loss Eyes: no problem reported Ear, Nose, Mouth, Throat: + nasal congestion and + sinus pain/pres sure; no dizziness and no sore throat Respiratory: + cough, + chest congestion and + sputum production (White); no hemoptysis Cardiovascular: no chest pain, no palpitations, no lightheadedness, no syncope and no edema Gastrointestinal: no abdominal pain, no nausea and no vomiting Genitourinary: no dysuria and no hematuria Musculoskeletal: as per Subjective / HPI Neurologic: + generalized weakness; no falls, no num bness, no dizziness and no headache(s) Physical Exam Physical Exam: , Nitin, present at time of exam. Constitutional: + ill appearing Eyes: PERRL, conjunctivae normal, anicteric sclerae Respiratory: normal respiratory effort and + cough; no audible wheezes Cardiovascular: RRR, no murmur, no edema Gastrointestinal (Abdomen): Inspection/Auscultation: abdomen normal to inspection and normal bowel sounds Percussion/Palpation: + dullness to percussion (RUQ); no guarding Musculoskeletal: Mild calf tenderness to R extremity; no edema, no calf size discrepancies. Psychiatric: Orientation: alert and oriented to person Lymphatic: + cervical lymphadenopathy (R side) Results & Data Results & Data Vital Signs (Past 12 Hours) Vital Signs Temp Pulse Pulse Resp BP BP Pulse Ox 02/13/24 14:00 81 16 142/73 H 96 02/13/24 12:59 87 02/13/24 12:03 84 19 129/61 97 02/13/24 11:02 37 C 83 18 130/63 98 O2 Del Method 02/13/24 14:00 Room Air 02/13/24 12:59 02/13/24 12:03 Room Air 02/13/24 11:02 Room Air Laboratory Results Abnormal lab results 02/13/24 02/13/24 02/13/24 Range/Units 11:10 11:39 14:00 WBC 12.86 H (4.8-10.8) K/ul RBC 3.95 L (4.20-5.40) M/uL Hgb 10.9 L (12.0-16.0) g/dl Hct 31.5 L (37.0-47.0) % MCV 79.7 L (80.0-100.0) fL RDW Std Deviation 52.1 H (36.4-46.3) fL RDW Coeff of [place] 18.0 H (11.5-14.5) % Neut # (Auto) 11.67 H (1.40-6.50) K/uL Lymph # (Auto) 0.47 L (1.20-3.40) K/uL VBG pH 7.44 H (7.36-7.41) VBG pCO2 24 L (38-50) mmHg Sodium 121 L (136-145) mmol/L Chloride 88 L (98-107) mmol/L Carbon Dioxide 20 L (21-32) mmol/L Anion Gap 13 H (3-11) Glucose 201 H (70-99(Fasting)) mg/dl Osmolality 263 L (280-300) mOsm/kg Lactate 5.4 H* (0.4-2.0) mmol/L Magnesium 1.6 L (1.7-2.4) mg/dl AST 49 H (13-39) U/L Ur Leukocyte Esterase 3+ H (Negative) Urine WBC (Auto) 6-10 H (0-5) /hpf Urine RBC (Auto) 3-5 H (0-2) /hpf SARS-CoV-2 (PCR) (Negative) 02/13/24 02/13/24 Range/Units 14:20 14:49 WBC (4.8-10.8) K/ul RBC (4.20-5.40) M/uL Hgb (12.0-16.0) g/dl Hct (37.0-47.0) % MCV (80.0-100.0) fL RDW Std Deviation (36.4-46.3) fL RDW Coeff of [place] (11.5-14.5) % Neut # (Auto) (1.40-6.50) K/uL Lymph # (Auto) (1.20-3.40) K/uL VBG pH (7.36-7.41) VBG pCO2 (38-50) mmHg Sodium (136-145) mmol/L Chloride (98-107) mmol/L Carbon Dioxide (21-32) mmol/L Anion Gap (3-11) Glucose (70-99(Fasting)) mg/dl Osmolality (280-300) mOsm/kg Lactate 5.1 H* (0.4-2.0) mmol/L Magnesium (1.7-2.4) mg/dl AST (13-39) U/L Ur Leukocyte Esterase (Negative) Urine WBC (Auto) (0-5) /hpf Urine RBC (Auto) (0-2) /hpf SARS-CoV-2 (PCR) POSITIVE A (Negative) Diagnostic Findings Chest X-Ray 02/13/24 11:09 XR chest 1V portable CLINICAL HISTORY: Sepsis TECHNIQUE: Single frontal radiograph of the chest was obtained. Comparison: Comparison is made to chest radiograph of 12/26/2023 FINDINGS: Battery-powered device is again seen. Calcified aortic knob is seen. The lungs are clear. No evidence of pleural effusion or pneumothorax. IMPRESSION: No acute abnormalities and in particular no radiographic evidence of pneumonia. ACT 112: Negative or not required by law. Electronically signed by: Shelton Goins M.D. 02/13/2024 11:35 AM Chest CTA 02/13/24 11:58 CT ANGIOGRAM OF THE CHEST CLINICAL HISTORY: Fatigue. Generalized weakness. Covid. COMPARISON STUDY: Chest x-ray dated 02/13/2024. Chest CT dated 11/20/2023. TECHNIQUE: Following the IV administration of 112 cc of Optiray 320, CT angiogram of the chest was performed from the upper abdomen to the thoracic inlet utilizing the pulmonary embolus protocol. Images are reviewed in the axial, sagittal, and coronal planes. 3-D MIPS images are created and assessed. IV contrast was administered without complication. A dose lowering technique was utilized adhering to the principles of ALARA. Examination is significantly compromised by motion artifact. There is also streak artifact from the arms which could not be elevated above the chest. CT DOSE: 1068.53 mGy.cm FINDINGS: Thyroid: Atrophic. Thoracic aorta: There is atherosclerotic calcification of the thoracic aorta, which is normal in caliber and demonstrates standard 3-vessel arch anatomy. No dissection is seen. Pulmonary vasculature: The pulmonary trunk is normal in caliber. There are no filling defects identified in main, lobar, or segmental pulmonary branches to suggest pulmonary embolus. Evaluation of the peripheral branches is degraded by streak and motion artifact. Heart: The heart is enlarged and without pericardial effusion. Lungs and pleural spaces: Evaluation of the lung parenchyma is compromised by motion artifact. No airspace consolidation or pleural effusion is seen. Foci of scarring/atelectasis are seen throughout both lungs. The trachea and central airways appear clear. Mediastinum: There is no mediastinal lymphadenopathy. Vanessa: Clear. Axillae: There is no axillary lymphadenopathy. Upper abdomen: Cholecystectomy clips are noted. The liver is cirrhotic in morphology. Ascites is seen in the upper abdomen. Skeletal structures: The skeletal structures are osteopenic. Degenerative change is noted in the shoulders and spine. No lytic or blastic bony lesions are seen. IMPRESSION: 1. There is no evidence of pulmonary embolus in the main, lobar, or segmental pulmonary arteries. 2. Cardiomegaly. 3. No airspace consolidation or pleural effusion is identified. 4. Cirrhotic liver morphology and abdominal ascites. 5. Additional findings as above. ACT 112: Negative or not required by law. Electronically signed by: Remigio Carrasquillo M.D. 02/13/2024 1:[address] 02/13/24 11:58 CT head/brain wo con CLINICAL HISTORY: weakness Technique: Contiguous axial CT images of the head were acquired from the base of the skull to the vertex without intravenous contrast administration. Images were viewed in brain, subdural and bone windows. Automated dose lowering techniques and/or adjustment according to patient size were utilized for this exam. Comparison: None available at the time of this dictation. Findings: Areas of decreased attenuation are present in the periventricular and subcortical white matter bilaterally consistent with small vessel ischemic disease. Generalized cerebral atrophy with commensurate enlargement of the ventricles, sulci, and cisterns is also present. There is no acute intracranial hemorrhage or evidence of acute territorial infarction. No shift of the midline structures, mass effect, or extra-axial abnormalities are shown. Athe rosclerotic calcifications are present in the intracranial segments of the internal carotid arteries. Imaged portions of the paranasal sinuses and mastoid air cells are clear. The orbits appear normal. There are no acute fractures of the calvaria or scalp swelling. Impression: No acute intracranial hemorrhage, no evidence of acute territorial infarction or other acute intracranial disease process. ACT 112: Negative or not required by law. Electronically signed by: Shelton Goins M.D. 02/13/2024 12:51 PM ECG Rate (beats per minute): 87 Rhythm: normal sinus (w/ PAC) Additional Comments: Per my review Code Status & VTE Plan Code Status DNR/DNI VTE Prophylaxis Plan VTE Prophylaxis will be ordered: Yes Reason for no VTE drug order: Contraindicated (History of hemorrhage while on pharmacpprophylaxis/LGI bleed) Supervising Physician Co-Signing Physician Notes I personally saw and examined the patient. I independently reviewed the labs, EKG, imaging, problem list, medication list, past medical history and family history. I verified all howell points and agree with Dionisio Patel PA-C with the following exceptions and/or additions: 79 year old presents to the ER with tested positive COVI 02/04 and generalized worsening weakness for the last 2 days. Unable to get any history from the patient. Unknown if previously taken anti-virals. O/E HS RRR, no murmurs, Chest CTAB, Abdo SNT A/P COVID-19 - supportive care only Hyponatremia - historically has improved with normal saline, already increasing but worsening acidosis and hyperkalemia therefore will give 1L sodium bicarb 150 meq. Continue NaCL 1g PO BID. Current urine osm low suggesting more nutritional than SIADH Hyperkalemia - Lokelma 10g PO, stop potassium supplementation, repeat with AM labs Elevated lactate - suspect secondary to metformin use in setting of dehydration, stop metformin. Repeat with AM labs PG Care Time/CCT Total # of Minutes Spent Total Time Spent with Patient: Total time spent is greater than 50% in coordination of care (as documented) at patient's floor/unit and/or counseling patient: Coding Level of Care Code None Diagnoses Hyponatremia E87.1 COVID-19 U07.1 Pain of right lower extremity M79.603
[2024-02-13 16:49] LABS: Influenza A virus by PCR Negative (Neg); Influenza B virus by PCR Negative (Neg); RSV by PCR Negative (Neg); SARS CoV2 RNA(COVID-19) Ceph POSITIVE (Negative)
[2024-02-13 18:19] LABS: BUN Creatinine Ratio 18.3 (10-20); Calcium 8.1 mg/dl (8.6-10.3); Creatinine Clr Calc Pharmacy 48.2 ml/min; Est GFR (African American) 66.8 ml/min; Est GFR (Non-African American) 57.6 ml/min; Potassium 5.5 mmol/L (3.5-5.1)
[2024-02-13] MEDS ORDERED: ALBUT/IPRATROP 3MG/0.5MG NEB 3 ML VIAL INH PRN (19:53)
[2024-02-13] MEDS ORDERED: MAGNESIUM HYDROXIDE SUSP 30 ML UDC PO PRN (19:53)
[2024-02-13] MEDS ORDERED: ONDANSETRON 4 MG OD TAB PO PRN (20:09)
[2024-02-13] MEDS ORDERED: NON-FORMULARY MEDICATION (Saliva Substitute Combo No.9 [Biotene Dry Mouth Oral Rinse] Mout PO SCH (21:00)
--- NOTE | 2024-02-13 21:18 | Ultrasound Report ---
Exam(s): US VENOUS RIGHT LOWER EXTREMITY EXAM: US Duplex Right Lower Extremity Veins CLINICAL HISTORY: Reason for exam: Calf tenderness, s/p fracture. TECHNIQUE: Real-time duplex ultrasound scan of the right lower extremity veins integrating B-mode two-dimensional vascular structure, Doppler spectral analysis, color flow Doppler imaging and compression. COMPARISON: No relevant prior studies available. FINDINGS: Deep veins: Unremarkable. No DVT in the visualized common femoral, femoral, proximal deep femoral or popliteal veins. The veins demonstrate normal color flow, are normally compressible, with normal phasic flow and/or augmentation response. Superficial veins: Unremarkable. No thrombus in the visualized great saphenous vein. Soft tissues: No acute findings. IMPRESSION: No evidence of acute DVT. Electronically signed by: Josi Huynh M.D. 02/13/24 21:17 PM
--- OUTSIDE RECORDS SUMMARY | 2024-02-13 21:51 | External Medical Summary ---
Author Name Unknown Address Unknown Organization [id number] [address] [place] [id number] Laboratory Report Ordering Provider Test Date Status PHILIP MADISON 02/09/2024 05:45:00 Final Observation Date Value Abnormality Reference (Units ) Status SYNC LEUKOCYTES IN BLOOD BY AUTOMATED COUNT 02/09/2024 05:45:00 7.09 4.00-10.80 (K/uL) Final Segs 02/09/2024 05:45:00 88.1 Above high normal 40.0-75.0 (%) Final Lymphs % 02/09/2024 05:45:00 9.4 Below low normal 18.0-42.0 (%) Final Monos 02/09/2024 05:45:00 2.5 1.0-11.0 (%) Final Eosinophils 02/09/2024 05:45:00 0.0 0.0-6.0 (%) Final Basos 02/09/2024 05:45:00 0.0 0.0-2.0 (%) Final Absolute Segs 02/09/2024 05:45:00 6.24 1.80-7.70 (K/uL) Final Lymphs, absolute 02/09/2024 05:45:00 0.67 Below low normal 1.00-4.80 (K/ul) Final Monos, Abs 02/09/2024 05:45:00 0.18 0.00-1.10 (K/uL) Final Eos, Abs 02/09/2024 05:45:00 0.00 0.00-0.70 (K/uL) Final Basos, Abs 02/09/2024 05:45:00 0.00 0.00-0.20 (K/uL) Final Performing Location [facility] [place] [id number]
--- OUTSIDE RECORDS SUMMARY | 2024-02-13 21:51 | External Medical Summary | Summary of Care ---
Author Name Unknown Organization [facility] Address [address] [place] [address] Phone [phone] Care Team Providers Care Bedspread Cutter Hand Name Role Phone Unavailable Primary Care Provider Unavailabl e Reason for Visit * Reason Onset Date Comments Skilled Visit 02/07/2024 Encounter Details Date Type Department Care Team (Latest Contact Info) Description 02/07/2024 7:00 AM EDT [facility] Visit [facility] [address] [place] [address] Denise Brice PA-C [address] [place] [address] Closed trimalleolar fracture of right ankle with routine healing, subsequent encounter*; Moderate dementia with mood disturbance, unspecified dementia type (HCC); Hyponatremia; COVID-19 virus infection Allergies Active Allergy Reactions Criticality Noted Date Comments Bee Stings 01/25/2008 Morphine 01/24/2001 documented as of this encounter (statuses as of 02/07/2024) Medications Medication Sig Dispensed Refills Start Date [...] as of this encounter (statuses as of 02/07/2024) Active Problems Problem Noted Date Diagnosed Date Hyponatremia 02/07/2024 History of 2019 novel coronavirus disease (COVID -19) 02/07/2024 DNR (do not resuscitate) 01/15/2024 Moderate dementia with mood disturbance 01/10/20 24 Closed trimalleolar fracture of right ankle 12/21 Iron deficiency anemia 01/10/2024 Cirrhosis of liver without ascites 01/10/2024 Liver mass 01/10/2024 Gastroesophageal reflux disease 01/10/2024 Moderate persistent asthma without complication 01/10/2024 History of GI bleed 01/10/2024 No transfusions per druze beliefs 01/10/2024 Chronic cough 01/10/2024 Implantable loop recorder present 01/10/2024 Vasovagal syncope 01/10/2024 Type 2 diabetes mellitus wit h hemoglobin A1c goal of less than 8.0% 03/19/2009 Overview: Per Diabetes Taxonomy. ICD-10 update of inactive term Hypothyroidism HTN, goal below 140/90 Overview: Modified per HTN protocol #16. documented as of this encounter (statuses as of 02/07/2024) Resolved Problems Problem Noted Date Diagnosed Date Resolved Date Stable angina 01/10/2024 Type 2 diabetes mellitus wit h hemoglobin A1c goal of less than 7.0% 03/19/2009 Overview: Per Diabetes Taxonomy. ICD-10 update of inactive term Diverticulitis of colon 12/21 documented as of this encounter (statuses as of 02/07/2024) Immunizations Name Administration Dates Next Due Pneumococcal [...] Progress Notes * Denise Brice PA-C - 02/07/2024 10:58 AM EDT Name: Chanelle French Date of :1945 TRANSITION EVENT: Type: Skilled visit Date: February 06 Code Status: No Code This note pertains to care provided at [facility]. Please see facility medical record for original note. This note is not to be edited or addended in [employer]. Editing or addending needs to occur in the facilities medical record. Subjective: Chanelle French is a 79 year old female. Patient being seen for skilled visit Chief Complaint Patient presents with Skilled Visit HPI: Pt is here for rehabilitation following fall with trimalleolar fx right ankle.. non surgical intervention. Pt continues to be NWB RLE. Has followup podiatry appt next week. No significant ankle pain or swelling. Slow progress with Therapy. Pt contracted Covid 19 several days ago. Having occasional cough and fatigue but no chills, fever, dyspnea wheezing, chest congestion, diarrhea, loss of taste or smell. Vital signs stable. Eating anddrinking ok. Begun on Paxlovid course, Duonebs prn and Siltussin prn. CBC Results: Results for orders placed or performed in visit on 01/24/24 CBC Result Value Ref Range WBC 5.17 4.00 - 10.80 K/uL RBC 3.42 3.85 - 5.15 M/uL HGB 9.0 (L) 12.0 - 15.3 g/dL HCT 29.0 (L) 36.0 - 45.2 % MCV 84.8 81.5 - 97.5 fL MCH 26.3 27.0 - 34.0 pg MCHC 31.0 32.0 - 36.0 g/dL RDW 20.2 11.5 - 15.5 % PLT 207 140 - 400 K/uL MPV 9.6 6.6 - 11.1 fL Hemoglobin Results: Lab Results Component Value Date/Time HGB 9.1 (L) 02/02/2024 05:31 AM HGB 9.0 (L) 01/24/2024 05:55 AM HGB 9.4 (L) 01/12/2024 05:35 AM Basic Panel Results: Results for orders placed or performed in visit on 02/07/24 BASIC METABOLIC PANEL Result Value Ref Range BUN 12 6 - 20 mg/dL CREATININE 1.0 0.5 - 1.0 mg/dL EGFR 58 (L) >=60 mL/min SODIUM 130 (L) 135 - 146 mmol/L POTASSIUM 4.5 3.5 - 5.1 mmol/L CHLORIDE 92 (L) 98 - 107 mmol/L CO2 28 22 - 32 mmol/L ANION GAP 10 7 - 15 mmol/L GLUCOSE 99 70 - 120 mg/dL CALCIUM 8.9 8.4 - 10.2 mg/dL Creatinine Results: Lab Results Component Value Date/Time CREATININE - [facility] 1.0 02/07/2024 05:42 AM CREATININE - [facility] 0.9 02/02/2024 05:31 AM CREATININE - [facility] 0.9 01/29/2024 05:48 AM CREATININE - [facility] 0.8 01/25/2008 11:04 AM CREATININE, RANDOM URINE - [facility] 184 01/25/2008 11:04 AM Potassium Results: Lab Results Component Value Date/Time POTASSIUM - [facility] 4.5 02/07/2024 05:42 AM POTASSIUM - [facility] 4.2 02/02/2024 05:31 AM POTASSIUM - [facility] 4.0 01/29/2024 05:48 AM POTASSIUM - [facility] 4.0 01/25/2008 11:04 AM Sodium Results: Lab Results Component Value Date/Time SODIUM - [facility] 130 (L) 02/07/2024 05:42 AM SODIUM - [facility] 131 (L) 02/02/2024 05:31 AM SODIUM - [facility] 132 (L) 01/29/2024 05:48 AM SODIUM - [facility] 139 01/25/2008 11:04 AM Patient Active Problem List [...] History of GI bleed No transfusions per druze beliefs Chronic cough Implantable loop recorder present Vasovagal syncope DNR (do not resuscitate) Hyponatremia History of 2019 novel coronavirus disease (COVID-19) Past Medical History: Diagnosis Date Closed trimalleolar fracture of right ankle 01/10/2024 Diverticulitis of colon DM type 2, goal A1c below 7 HTN, goal to be determined Hypothyroidism Stable angina (HCC) Past Surgical History: Procedure Laterality Date COLONOSCOPY 05/22/05 dr roth REMOVE GALLBLADDER SIGMOIDOSCOPY, DIAGNOSTIC 01/24/[address] Raygoza at [facility] [place]/ - WN to 45 cm TOTAL ABD [...] list as this cannot be edited in [employer]. Review of Systems: obtained from pt and staff Constitutional ROS: No change in weight, No change in weakness,some increased fatigue and No fevers, sweats, or chills Nose ROS: No nasal stuffiness and No significant epistaxis Mouth/Throat ROS: No thrush or No sore throat Neck ROS: No lumps or masses, No swollen glands, No recent swelling in thyroid area and No significant pain in neck Pulmonary ROS: see HPI Cardiovascular ROS: No chest pain, No shortness [...] reviewed the most recent facilities vitals. General: alert, no distress, well nourished and well developed [...] cyanosis Neuro Exam: alert & oriented x 1 with fluent speech, no focal motor/sensory deficits Skin: skin color, texture, turgor are normal, no rashes or significant lesions ASSESSMENT: Closed trimalleolar fracture of right ankle with routine healing, subsequent encounter (Primary) Stable currently Pain controlled Participating in Therapy Will obtain xray of ankle on 02/12/24 per podiatry recommendations Keep podiatry appt for next week Moderate dementia with mood disturbance, unspecified dementia type (HCC) Stable mood and mentation Continue Lorazepam, Aricept and Lexapro as directed Hyponatremia Stable Continue to encourage fluids Will follow COVID-19 virus infection Stable symptoms Complete Paxlovid course PLAN: Reviewed CBC, BMP, Lytes and Continue present medication(s):as ordered. Assisted Home Treatment Given: as above Electronically signed by: Denise Brice PA-C Over 35 minutes were spent in this visit more [...] Foot Exam 01/24/2009 01/25/2008 TSH 01/24/2009 01/25/2008 *SPIROMETRY ONCE FOR ASTHMA-ADULT 01/12/2024 COVID-19 Vaccine (2023- season) 2024 03/07/2023, 03/11/2022, 04/30/2021, Additional history exists Influenza Vaccine (FLU shot) (#1) 2024 03/07/2023, 03/03/2022, 03/02/2021, Additional history exists GFR 02/06/2025 02/07/2024, 01/20, 01/29/2024, Additional history exists DTap/Tdap Vaccines (2 - Td or Tdap) [...] ankle with routine healing, subsequent encounter- Primary Moderate dementia with mood disturbance, unspecified dementia type (HCC) Hyponatremia Hyposmolality and/or hyponatremia COVID-19 virus infection documented in this encounter
--- OUTSIDE RECORDS SUMMARY | 2024-02-13 21:51 | External Medical Summary ---
Author Name Unknown Address Unknown Organization [id number] [address] [place] [id number] Laboratory Report Ordering Provider Test Date Status PHILIP MADISON 02/02/2024 05:31:00 Final Observation Date Value Abnormality Reference (Units ) Status HCT 02/02/2024 05:31:00 28.6 Below low normal 36. 0-45.2 (%) Final Performing Location [facility] [address] [place] [id number]
--- OUTSIDE RECORDS SUMMARY | 2024-02-13 21:51 | External Medical Summary | Summary of Care ---
Author Name Unknown Organization [facility] Address [address] [place] [address] Phone [phone] Care Team Providers Care Quality Rep Name Role Phone Unavailable Primary Care Provider Unavailabl e Reason for Visit * Reason Onset Date Comments Skilled Visit 02/08/2024 Encounter Details Date Type Department Care Team (Latest Contact Info) Description 02/08/2024 7:30 AM EDT Detention Visit [facility] [address] [place] [address] Denise Brice PA-C [address] [place] [address] Closed trimalleolar fracture of right ankle with routine healing, subsequent encounter*; Moderate dementia with mood disturbance, unspecified dementia type (HCC); Type 2 diabetes mellitus with hemoglobin A1c goal of less than 8.0% ([facility]); Hyponatremia; COVID-19 virus infection Allergies Active Allergy Reactions Criticality Noted Date Comments Bee Stings 01/25/2008 Morphine 01/24/2001 documented as of this encounter (statuses as of 02/08/2024) Medications Medication Sig Dispensed Refills Start Date [...] as of this encounter (statuses as of 02/08/2024) Active Problems Problem Noted Date Diagnosed Date [...] of GI bleed 01/10/2024 No transfusions per religion beliefs 01/10/2024 Chronic cough 01/10/2024 Implantable loop recorder present 01/10/2024 Vasovagal syncope 01/10/2024 Type 2 diabetes mellitus wit h hemoglobin A1c goal of less than 8.0% 03/19/2009 Overview: Per Diabetes Taxonomy. ICD-10 update of inactive term Hypothyroidism HTN, goal below 140/90 Overview: Modified per HTN protocol #16. documented as of this encounter (statuses as of 02/08/2024) Resolved Problems Problem Noted Date Diagnosed Date Resolved Date Stable angina 01/10/2024 Type 2 diabetes mellitus wit h hemoglobin A1c goal of less than 7.0% 03/19/2009 Overview: Per Diabetes Taxonomy. ICD-10 update of inactive term Diverticulitis of colon 12/21 documented as of this encounter (statuses as of 02/08/2024) Immunizations Name Administration Dates Next Due Pneumococcal [...] A1c goal of less than 8.0% (HCC) Hyponatremia Hyposmolality and/or hyponatremia COVID-19 virus infection documented in this encounter
--- OUTSIDE RECORDS SUMMARY | 2024-02-13 21:51 | External Medical Summary | Summary of Care ---
Author Name Unknown Organization [facility] Address [address] [place] [address] Phone [phone] Care Team Providers Care Balloon Seller Name Role Phone Unavailable Primary Care Provider Unavailabl e Reason for Visit * Reason Onset Date Comments Skilled Visit 02/12/2024 Encounter Details Date Type Department Care Team (Latest Contact Info) Description 02/12/2024 8:00 AM EDT Assisted Visit [facility] [address] [place] [address] Denise Brice PA-C [address] [place] [address] Hyponatremia*; COVID-19 virus infection; Closed trimalleolar fracture of right ankle with routine healing, subsequent encounter; Moderate dementia with mood disturbance, unspecified dementia type (HCC); Dry mouth Allergies Active Allergy Reactions Criticality Noted Date Comments Bee Stings 01/25/2008 Morphine 01/24/2001 documented as of this encounter (statuses as of 02/12/2024) Medications Medication Sig Dispensed Refills Start Date End Date Status LORAZEPAM 0.5 MG PO TABSIndications:Anx iety state One pill by mouth 3 times a day as needed for anxiety 40 2 01/25/2008 Active MULTI-VITAMIN PO TABS 0 01/31/2008 Active VENTOLIN HFA 108 (90 BASE) MCG/ACT IN AERS Use two puffs every four hours as needed for wheezing 1 5 01/31/2008 Active Furosemide 20 MG Oral Tablet (Lasix)Indications: HTN, goal below 140/90 Take 1 Tablet by [...] Active Levothyroxine Sodium 75 MCG Oral Tablet (Synthroid)Indicati ons:Acquired hypothyroidism Take 1 Tablet by mouth daily [...] by mouth in the morning. 01/10/2024 Active Magnesium Oxide -Mg Supplement 400 [...] needed for Nausea or Vomiting. 01/10/2024 Active Sodium Chloride 1 GM Oral Tablet Take 1 Tablet by mouth in the morning. 02/12/2024 Active Glycopyrrolate 1 MG Oral Tablet (Robinul) Take 1 Tablet by mouth at bedtime. 02/12/2024 Active Cetirizine HCl 5 MG Oral Tablet Take 1 Tablet by mouth in the morning. 02/12/2024 Active Cetirizine HCl 10 MG Oral Capsule Take 1 Capsule by mouth in the morning. 01/10/2024 02/12/20 24 Discontinued(Med ication/Dose Changed) Glycopyrrolate 1 MG Oral Tablet (Shaan) Take 1 Tablet by mouth in the morning and 1 Tablet before bedtime. 01/10/2024 02/12/20 24 Discontinued documented as of this encounter (statuses as of 02/12/2024) Active Problems Problem Noted Date Diagnosed Date [...] of GI bleed 01/10/2024 No transfusions per advent beliefs 01/10/2024 Chronic cough 01/10/2024 Implantable loop recorder present 01/10/2024 Vasovagal syncope 01/10/2024 Type 2 diabetes mellitus wit h hemoglobin A1c goal of less than 8.0% 03/19/2009 Overview: Per Diabetes Taxonomy. ICD-10 update of inactive term Hypothyroidism HTN, goal below 140/90 Overview: Modified per HTN protocol #16. documented as of this encounter (statuses as of 02/12/2024) Resolved Problems Problem Noted Date Diagnosed Date Resolved Date Stable angina 01/10/2024 Type 2 diabetes mellitus wit h hemoglobin A1c goal of less than 7.0% 03/19/2009 Overview: Per Diabetes Taxonomy. ICD-10 update of inactive term Diverticulitis of colon 12/21 documented as of this encounter (statuses as of 02/12/2024) Immunizations Name Administration Dates Next Due Pneumococcal [...] Progress Notes * Denise Brice PA-C - 02/12/2024 10:30 AM EDT Name: Chanelle French Date of :1945 TRANSITION EVENT: Type: Skilled visit Date: February 11 Code Status: No Code This note pertains to care provided at [facility]. Please see facility medical record for original note. This note is not to be edited or addended in [employer]. Editing or addending needs to occur in the facilities medical record. Subjective: Chanelle French is a 79 year old female. Patient being seen for skilled visit and acute issue Chief Complaint Patient presents with Skilled Visit HPI: Pt is here for rehabiilation following trimalleolar fx right ankle which is being treated nonoperatively. Pt has dementia, DM, hypothyroidism, liver cirrhosis and chronic cough with hx of asthma. Pt was readmitted back to [facility] on 01/17/24 due to severe hyponatremia of 119. She was treated with IVF and returned back to SNF. Pt tested positive for Covid 19 in SNF on 02/05/24. She has mild symptoms of cough, fatigue, malaise. She continued to drink adequate oral fluids. She completed course of Paxlovid and has been recovering. She is stable from cardiopulmonary standpoint. CXR done last week showed NAD. Vital signs have been stable. No nausea, vomiting or diarrhea noted. Pt has been having routine BMP's with Na+ staying in the 130 to 131 range. BMP on 02/09/24 showed Na+ 128 with K+ 5.3. creatinine 1.4 with baseline (0.9 to 1.0). She was given two liters of IVF over this weekend with today's BMP: Basic Panel Results: Results for orders placed or performed in visit on 02/12/24 BASIC METABOLIC PANEL Result Value Ref Range BUN 16 6 - 20 mg/dL CREATININE 0.9 0.5 - 1.0 mg/dL EGFR 64 >=60 mL/min SODIUM 122 (L) 135 - 146 mmol/L POTASSIUM 4.6 3.5 - 5.1 mmol/L CHLORIDE 89 (L) 98 - 107 mmol/L CO2 24 22 - 32 mmol/L ANION GAP 9 7 - 15 mmol/L GLUCOSE 92 70 - 120 mg/dL CALCIUM 8.1 (L) 8.4 - 10.2 mg/dL Creatinine Results: Lab Results Component Value Date/Time CREATININE - [facility] 0.9 02/12/2024 05:38 AM CREATININE - [facility] 1.4 (H) 02/09/2024 05:45 AM CREATININE - [facility] 1.0 02/07/2024 05:42 AM CREATININE - [facility] 0.8 01/25/2008 11:04 AM CREATININE, RANDOM URINE - [facility] 184 01/25/2008 11:04 AM Potassium Results: Lab Results Component Value Date/Time POTASSIUM - [facility] 4.6 02/12/2024 05:38 AM POTASSIUM - [facility] 5.3 (H) 02/09/2024 05:45 AM POTASSIUM - [facility] 4.5 02/07/2024 05:42 AM POTASSIUM - [facility] 4.0 01/25/2008 11:04 AM Sodium Results: Lab Results Component Value Date/Time SODIUM - [facility] 122 (L) 02/12/2024 05:38 AM SODIUM - [facility] 128 (L) 02/09/2024 05:45 AM SODIUM - [facility] 130 (L) 02/07/2024 05:42 AM SODIUM - [facility] 139 01/25/2008 11:04 AM Chloride Results: Lab Results Component Value Date/Time CHLORIDE - [facility] 89 (L) 02/12/2024 05:38 AM CHLORIDE - [facility] 89 (L) 02/09/2024 05:45 AM CHLORIDE - [facility] 92 (L) 02/07/2024 05:42 AM CHLORIDE - [facility] 103 01/25/2008 11:04 AM According to who is present, he thinks pt seems more alert and less coughing today. Pt c/o mouth being dry. Patient Active Problem List Diagnosis Hypothyroidism HTN, goal below 140/90 Type 2 diabetes mellitus with hemoglobin A1c goal of less than 8.0% (HCC) Moderate dementia with mood disturbance (HCC) Closed trimalleolar fracture of right ankle Iron deficiency anemia Cirrhosis of liver without ascites (HCC) Liver mass Gastroesophageal reflux disease Moderate persistent asthma without complication History of GI bleed No transfusions per advent beliefs Chronic cough Implantable loop recorder present [...] DIAGNOSTIC 01/24/[address] [place] [facility] [place] - WN to 45 cm TOTAL ABD [...] list as this cannot be edited in [employer]. Review of Systems: obtained from pt and staff Constitutional ROS: No change in weight, less weakness, less fatigue and No fevers, sweats, or chills Eye [...] No significant pain in neck Pulmonary ROS: + chronic cough, sputum, or hemoptysis, No wheezing, No shortness of breath and No recent change in breathing Cardiovascular ROS: No chest pain, No shortness of breath, No edema, No palpitations and No syncope Gastrointestinal ROS: No abdominal pain, No change in bowel habits, No significant change in appetite, No nausea, vomiting, diarrhea, or constipation and No dysphagia Skin/Integumentary ROS: No rash and No itching [...] no clubbing, no cyanosis Neuro Exam: alert with fluent speech, no focal motor/sensory deficits Skin: skin color, texture, turgor are normal, no rashes or significant lesions Musculoskeletal: moves all extremities with good strength ASSESSMENT: Hyponatremia (Primary) Despite IVF times two liters Reviewed with Dr Mckeon Will increase NaCl tablets to 1 GM BID Will repeat BMP in AM Continue to encourage oral fluids Will follow closely COVID-19 virus infection Recovering Completed Paxlovid course Closed trimalleolar fracture of right ankle with routine healing, subsequent encounter Xray of ankle today in SNF Appt with podiatry for followup this week Continue NWB RLE Moderate dementia with mood disturbance, unspecified dementia type (HCC) Stable mood and mentation Continue Aricept and Lexapro as directed Dry mouth Reviewed pt's medications Cause of dry mouth can be due to Robinul, Cetirizine Will reduce Robinul to 1mg HS from bid Will reduce Cetriizine to 5mg daily (elderly recommended dose is 5mg daily) Biotene oral rinse as directed PLAN: Reviewed CBC. BMP, Lytes and Continue present medication(s):as ordered. Care Home Home Treatment Given: Lab Draw BMP tomorrow Electronically signed by: Denise Brice PA-C Over [...] *SPIROMETRY ONCE FOR ASTHMA-ADULT 01/12/2024 COVID-19 Vaccine ( season) 2024 03/07/2023, 03/11/2022, 04/30/2021, Additional history exists Influenza Vaccine (FLU shot) (#1) 2024 03/07/2023, 03/03/2022, 03/02/2021, Additional history exists GFR 02/11/2025 02/12/2024, 01/21, 02/07/2024, Additional history exists DTap/Tdap Vaccines (2 - [...] Diagnoses Diagnosis Hyponatremia- Primary Hyposmolality and/or hyponatremia COVID-19 virus infection Closed trimalleolar fracture of right ankle with routine healing, subsequent encounter Moderate dementia with mood disturbance, unspecified dementia type (HCC) Dry mouth Disturbance of salivary secretion documented in this encounter
--- OUTSIDE RECORDS SUMMARY | 2024-02-13 21:51 | External Medical Summary ---
Author Name Unknown Address Unknown Organization [id number] [address] [place] [id number] Laboratory Report Ordering Provider Test Date Status PHILIP MADISON 02/02/2024 05:31:00 Final Observation Date Value Abnormality Reference (Units ) Status Hemoglobin 02/02/2024 05:31:00 9.1 Below low normal 12 .0-15.3 (g/dL) Final Performing Location [facility] [address] [place] [id number]
--- OUTSIDE RECORDS SUMMARY | 2024-02-13 21:51 | External Medical Summary ---
Author Name Unknown Address Unknown Organization [id number] [address] [place] [id number] Laboratory Report Ordering Provider Test Date Status PHILIP MADISON 02/09/2024 05:45:00 Final Observation Date Value Abnormality Reference (Units ) Status Nucleated erythrocytes/100 leukocytes [Ratio] in Blood by Automated count 02/09/2024 05:45:00 Final Performing Location [facility] [address] [place] [address]
--- OUTSIDE RECORDS SUMMARY | 2024-02-13 21:51 | External Medical Summary ---
Author Name Unknown Address Unknown Organization [id number] [address] [place] [address] Laboratory Report Ordering Provider Test Date Status PHILIP MADISON 02/09/2024 05:45:00 Final Observation Date Value Abnormality Reference (Units ) Status BUN 02/09/2024 05:45:00 18 6-20 (mg/dL) Final Creatinine 02/09/2024 05:45:00 1.4 Above high normal 0.5-1.0 (mg/dL) Final Glomerular filtration rate/1.73 sq M.predicted [Volume Rate/Area] in Serum, Plasma or Blood by Creatinine-based formula (CKD-EPI) 02/09/2024 05:45:00 38 Below low normal >=60 (mL/min) Final eGFR is calculated based on the CKD-EPI 2020 equation. Sodium 02/09/2024 05:45:00 128 Below low normal 135 -146 (mmol/L) Final Potassium 02/09/2024 05:45:00 5.3 Above high normal 3. 5-5.1 (mmol/L) Final Cl 02/09/2024 05:45:00 89 Below low normal 98- 107 (mmol/L) Final CO2 02/09/2024 05:45:00 19 Below low normal 22- 32 (mmol/L) Final Anion gap 02/09/2024 05:45:00 20 Above high normal 7- 15 (mmol/L) Final Glucose 02/09/2024 05:45:00 192 Above high normal 70 -120 (mg/dL) Final Calcium 02/09/2024 05:45:00 8.9 8.4-10.2 ( mg/dL) Final Performing Location [facility] [address] [place] [address]
--- OUTSIDE RECORDS SUMMARY | 2024-02-13 21:51 | External Medical Summary ---
Author Name Unknown Address Unknown Organization [id number] [address] [place] [id number] Laboratory Report Ordering Provider Test Date Status PHILIP MADISON 02/09/2024 05:45:00 Final Observation Date Value Abnormality Reference (Units ) Status WBC, Total 02/09/2024 05:45:00 7.09 4.00-10.8 0 (K/uL) Final RBC 02/09/2024 05:45:00 3.46 3.85-5.15 (M/uL) Final Hemoglobin 02/09/2024 05:45:00 9.3 Below low normal 12 .0-15.3 (g/dL) Final HCT 02/09/2024 05:45:00 29.8 Below low normal 36. 0-45.2 (%) Final MCV 02/09/2024 05:45:00 86.1 81.5-97.5 (fL) Final MCH 02/09/2024 05:45:00 26.9 27.0-34.0 (pg) Final MCHC 02/09/2024 05:45:00 31.2 32.0-36.0 (g/dL) Final RDW 02/09/2024 05:45:00 18.5 11.5-15.5 (%) Final Platelets 02/09/2024 05:45:00 208 140-400 (K /uL) Final MPV 02/09/2024 05:45:00 10.4 6.6-11.1 ( fL) Final Performing Location [facility] [address] [place] [id number]
--- OUTSIDE RECORDS SUMMARY | 2024-02-13 21:51 | External Medical Summary | Summary of Care ---
Author Name Unknown Organization [facility] Address [address] [place] [address] Phone [phone] Care Team Providers Care Film Technician Name Role Phone Unavailable Primary Care Provider Unavailabl e Encounter Details Date Type Department Care Team (Late st Contact Info) Description 02/07/2024 Orders Only Lab Mobile Phlebotomy [facility] [address] [place] [address] Lin Mckeon MD [address] [place] [address] [place] [address] Hyponatremia* Allergies Active Allergy [...] of GI bleed 01/10/2024 No transfusions per rastafari beliefs 01/10/2024 Chronic cough 01/10/2024 Implantable loop [...] Care Team (Late st Contact Info) Description 02/07/2024 5:00 AM EDT Laboratory Lab Mobile Phlebotomy [facility] [address] [place] [address] [place] [address] Arrived Scheduled Orders Name Type Priority Associated Diagnoses Orde r Schedule BASIC METABOLIC PANEL Lab Routine Hyponatremia Expected: 02/07/2024, Expires: 02/06/2025 Health Maintenance Due Date Last Done Comments [...] 03/07/2023, 03/03/2022, 03/02/2021, Additional history exists GFR 02/01/2025 02/02/2024, 0901/2024, 01/24/2024, Additional history exists DTap/Tdap Vaccines (2 - [...]
--- OUTSIDE RECORDS SUMMARY | 2024-02-13 21:51 | External Medical Summary | Summary of Care ---
Author Name Unknown Organization [facility] Address [address] [place] [address] Phone [phone] Care Team Providers Care Stone Polisher Name Role Phone Unavailable Primary Care Provider Unavailabl e Encounter Details Date Type Department Care Team (Late st Contact Info) Description 02/12/2024 Orders Only Lab [facility] [address] [place] [address] Lin Mckeon MD [address] [place] [address] [place] [address] Hyperkalemia*; COVID-19; Hyponatremia Allergies Active Allergy Reactions Criticality Noted [...] of GI bleed 01/10/2024 No transfusions per jewish beliefs 01/10/2024 Chronic cough 01/10/2024 Implantable loop [...] Care Team (Late st Contact Info) Description 02/12/2024 5:00 AM EDT Laboratory Lab Mobile Phlebotomy [facility] [address] [place] [address] [facility] Mobile [address] [place] [address] Arrived Scheduled Orders Name Type Priority Associated Diagnoses Orde r Schedule BASIC METABOLIC PANEL Lab Routine Hyperkalemia COVID-19 Hyponatremia Expected: 02/12/2024, Expires: 02/11/2025 Health Maintenance Due Date Last Done Comments [...] 03/07/2023, 03/03/2022, 03/02/2021, Additional history exists GFR 02/08/2025 02/09/2024, 01/20, 02/02/2024, Additional history exists DTap/Tdap Vaccines (2 - [...] as of this encounter Visit Diagnoses Diagnosis Hyperkalemia- Primary Hyperpotassemia COVID-19 Hyponatremia Hyposmolality and/or hyponatremia documented in this encounter
--- OUTSIDE RECORDS SUMMARY | 2024-02-13 21:51 | External Medical Summary | Continuity Of Care Document ---
Author Name Unknown Address [address] [place] [address] Organization [facility] ( ) Care Team Providers Care Oil Agent Name Role Phone Lin Mckeon Primary Care Provider [phone] Allergies Allergy Reaction Start Date End Date Status BEE VENOM PROTEIN (HONEY BEE) Swelling Facial/tongue/throat/hands/fa ce/feet Active CEFAZOLIN Difficulty breathing Acti ve ADHESIVE Hives Active AZITHROMYCIN Active CANDESARTAN Cough Active ENALAPRIL Cough Active LISINOPRIL Cough Active MORPHINE Disorientation Active Problems Code Description Start Date End Date Status E87.1 Hypo-osmolality and hyponatremia 01/23/2024 Active M62.81 Muscle weakness (generalized) 01/23/2024 Active E11.9 Type 2 diabetes mellitus without complications 01/23/2024 Active W19.XXXA Unspecified fall, initial encounter 01/05/2024 Active [...] 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 Essential (primary) hypertension 01/05/2024 Active J45.909 Unspecified asthma, uncomplicated 01/05/2024 Active N39.0 Urinary tract infection, site not specified Active S82.401D Unspecified fracture of shaft of right fibula, subsequent encounter for closed fracture with routine healing 01/05/2024 Active R53.1 Weakness 01/24/2024 Active R26.81 Unsteadiness on feet 01/24/2024 Acti ve Z74.1 Need for assistance with personal care 01/24/20 24 Active U07.1 COVID-19 02/05/2024 Active VITAL SIGNS Date Time Diastolic blood pressure Systolic blood pressure Body height Body weight Temperature SpO2 Blood Sugar Pulse Respirations 818 47341 9 72.00 mm[Hg] - Sitting 122.00 mm[Hg] - Sitting 98.80 Ear 93.00 % 64.00/ min 18.00/min 35653 819 01399 3 72.00 mm[Hg] - Sitting 131.00 mm[Hg] - Sitting 99.20 Ear 98.00 % 73.00/ min 20.00/min 37005 820 84210 0 78.00 mm[Hg] - Sitting 130.00 mm[Hg] - Sitting 98.70 Ear 98.00 % 73.00/ min 18.00/min 10661 821 97742 6 80.00 mm[Hg] - Sitting 150.00 mm[Hg] - Sitting 98.20 Ear 95.00 % 89.00/ min 18.00/min 12305 822 66220 8 64 NI 90222 823 05627 0 70.00 mm[Hg] - Sitting 137.00 mm[Hg] - Sitting 98.80 X-Other 93.00 % 65.00/ min 18.00/min 38311 825 03835 5 70.00 mm[Hg] - Sitting 124.00 mm[Hg] - Sitting 98.60 Oral 97.00 % 64.00/ min 16.00/min 05484 826 26703 7 146.00 NI 02122 826 19680 1 73.00 mm[Hg] - Sitting 145.00 mm[Hg] - Sitting 99.10 Ear 93.00 % 67.00/ min 20.00/min 52910 827 87165 4 82.00 mm[Hg] - Sitting 128.00 mm[Hg] - Sitting 98.60 Ear 94.00 % 76.00/ min 20.00/min 56415 828 09181 0 65.00 mm[Hg] - Sitting 130.00 mm[Hg] - Sitting 98.00 Oral 94.00 % 58.00/ min 18.00/min 42931 903 36119 4 71.00 mm[Hg] - Sitting 131.00 mm[Hg] - Sitting 99.70 Ear 94.00 % 68.00/ min 18.00/min 26606 903 89272 5 71.00 mm[Hg] - Sitting 131.00 mm[Hg] - Sitting 144.00 NI 99.70 Ear 68.00/ min 34762 903 87553 3 71.00 mm[Hg] - Sitting 131.00 mm[Hg] - Sitting 99.70 Ear 94.00 % 68.00/ min 16.00/min 13726 904 38866 0 69.00 mm[Hg] - Sitting 111.00 mm[Hg] - Sitting 98.60 Ear 94.00 % 69.00/ min 18.00/min 39048 904 34712 7 155.00 NI 70850 905 46082 5 72.00 mm[Hg] - Sitting 116.00 mm[Hg] - Sitting 98.20 Oral 95.00 % 71.00/ min 16.00/min 89982 906 31213 0 66.00 mm[Hg] - Sitting 116.00 mm[Hg] - Sitting 99.00 X-Other 97.00 % 65.00/ min 18.00/min 41457 907 49636 0 68.00 mm[Hg] - Sitting 142.00 mm[Hg] - Sitting 98.80 X-Other 94.00 % 211.00 mg/dL 76.00/ min 18.00/min 86500 907 29147 0 145.00 NI 00936 908 35925 4 145.00 NI 03395 908 08507 7 70.00 mm[Hg] - Sitting 127.00 mm[Hg] - Sitting 99.20 Oral 95.00 % 68.00/ min 18.00/min 28231 909 06669 9 73.00 mm[Hg] - Sitting 116.00 mm[Hg] - Sitting 99.00 Oral 98.00 % 74.00/ min 18.00/min 99087 910 24538 0 67.00 mm[Hg] - Sitting 135.00 mm[Hg] - Sitting 99.50 Ear 95.00 % 62.00/ min 18.00/min 96372 910 42760 6 149.00 NI 79462 911 43012 2 78.00 mm[Hg] - Sitting 136.00 mm[Hg] - Sitting 97.80 Ear 92.00 % 68.00/ min 18.00/min 12697 912 82875 0 64.00 mm[Hg] - Sitting 121.00 mm[Hg] - Sitting 98.70 Ear 95.00 % 58.00/ min 18.00/min 60827 914 66053 0 67.00 mm[Hg] - Sitting 121.00 mm[Hg] - Sitting 99.10 Oral 91.00 % 62.00/ min 18.00/min 77907 916 81573 7 99.40 Oral 63544 916 99824 6 74.00 mm[Hg] - Sitting 136.00 mm[Hg] - Sitting 98.40 X-Other 94.00 % 62.00/ min 16.00/min Immunizations Vaccine Date Status COVID-19 08/31/2020 Completed COVID-19 09/28/2020 Completed COVID-19 04/30/2021 Completed COVID-19 03/11/2022 Completed COVID-19 03/07/2023 Completed Influenza 03/07/2023 Completed (PCV13)Pneumococcal 04/21/2014 Completed (PPSV23)Pneumococcal 01/19/2017 Completed TDaP 12/26/2023 Completed
--- OUTSIDE RECORDS SUMMARY | 2024-02-13 21:51 | External Medical Summary ---
Author Name Unknown Address Unknown Organization [facility] [address] [place] [id number] Laboratory Report Ordering Provider Test Date Status PHILIP MADISON 02/12/2024 05:38:00 Final Observation Date Value Abnormality Reference (Units ) Status BUN 02/12/2024 05:38:00 16 6-20 (mg/dL) Final Creatinine 02/12/2024 05:38:00 0.9 0.5-1.0 (mg/dL) Final Glomerular filtration rate/1.73 sq M.predicted [Volume Rate/Area] in Serum, Plasma or Blood by Creatinine-based formula (CKD-EPI) 02/12/2024 05:38:00 64 >=60 (mL/min) Final eGFR is calculated based on the CKD-EPI 2020 equation. Sodium 02/12/2024 05:38:00 122 Below low normal 135 -146 (mmol/L) Final Results rechecked Potassium 02/12/2024 05:38:00 4.6 3.5-5.1 (m mol/L) Final Cl 02/12/2024 05:38:00 89 Below low normal 98- 107 (mmol/L) Final CO2 02/12/2024 05:38:00 24 22-32 (mmo l/L) Final Anion gap 02/12/2024 05:38:00 9 7-15 (mmol /L) Final Glucose 02/12/2024 05:38:00 92 70-120 (mg /dL) Final Calcium 02/12/2024 05:38:00 8.1 Below low normal 8.4 -10.2 (mg/dL) Final Performing Location [facility] [address] [place] [id number]
--- OUTSIDE RECORDS SUMMARY | 2024-02-13 21:51 | External Medical Summary | Summary of Care ---
Author Name Unknown Organization [facility] Address [address] [place] [address] Phone [phone] Care Team Providers Care Cisco Network Engineer Name Role Phone Unavailable Primary Care Provider Unavailabl e Encounter Details Date Type Department Care Team (Late st Contact Info) Description 02/09/2024 Orders Only Lab Mobile [facility] [address] [place] [address] Lin Mckeon MD [address] [place] [address] [place] [address] Hyponatremia* Allergies Active Allergy Reactions Criticality Noted Date Comments Bee Stings 01/25/2008 Morphine 01/24/2001 documented as of this encounter (statuses as of 02/09/2024) Medications Medication Sig Dispensed Refills Start Date [...] as of this encounter (statuses as of 02/09/2024) Active Problems Problem Noted Date Diagnosed Date [...] of GI bleed 01/10/2024 No transfusions per pentecostalism beliefs 01/10/2024 Chronic cough 01/10/2024 Implantable loop recorder present 01/10/2024 Vasovagal syncope 01/10/2024 Type 2 diabetes mellitus wit h hemoglobin A1c goal of less than 8.0% 03/19/2009 Overview: Per Diabetes Taxonomy. ICD-10 update of inactive term Hypothyroidism HTN, goal below 140/90 Overview: Modified per HTN protocol #16. documented as of this encounter (statuses as of 02/09/2024) Resolved Problems Problem Noted Date Diagnosed Date Resolved Date Stable angina 01/10/2024 Type 2 diabetes mellitus wit h hemoglobin A1c goal of less than 7.0% 03/19/2009 Overview: Per Diabetes Taxonomy. ICD-10 update of inactive term Diverticulitis of colon 12/21 documented as of this encounter (statuses as of 02/09/2024) Immunizations Name Administration Dates Next Due Pneumococcal [...] Care Team (Late st Contact Info) Description 02/09/2024 5:10 AM EDT Laboratory Lab Mobile Phlebotomy [facility] [address] [place] [address] [place] [address] Scheduled Orders Name Type Priority Associated Diagnoses Orde r Schedule BASIC METABOLIC PANEL Lab Routine Hyponatremia Expected: 02/09/2024, Expires: 02/08/2025 CBC WITH WBC DIFFERENTIAL Lab Routine Hyponatremia Expected: 02/09/2024, Expires: 02/08/2025 Health Maintenance Due Date Last Done Comments [...]
--- OUTSIDE RECORDS SUMMARY | 2024-02-13 21:51 | External Medical Summary ---
Author Name Unknown Address Unknown Organization [facility] [address] [place] [id number] Laboratory Report Ordering Provider Test Date Status PHILIP MADISON 02/07/2024 05:42:00 Final Observation Date Value Abnormality Reference (Units ) Status BUN 02/07/2024 05:42:00 12 6-20 (mg/dL) Final Creatinine 02/07/2024 05:42:00 1.0 0.5-1.0 (mg/dL) Final Glomerular filtration rate/1.73 sq M.predicted [Volume Rate/Area] in Serum, Plasma or Blood by Creatinine-based formula (CKD-EPI) 02/07/2024 05:42:00 58 Below low normal >=60 (mL/min) Final eGFR is calculated based on the CKD-EPI 2020 equation. Sodium 02/07/2024 05:42:00 130 Below low normal 135 -146 (mmol/L) Final Potassium 02/07/2024 05:42:00 4.5 3.5-5.1 (m mol/L) Final Cl 02/07/2024 05:42:00 92 Below low normal 98- 107 (mmol/L) Final CO2 02/07/2024 05:42:00 28 22-32 (mmo l/L) Final Anion gap 02/07/2024 05:42:00 10 7-15 (mmol /L) Final Glucose 02/07/2024 05:42:00 99 70-120 (mg /dL) Final Calcium 02/07/2024 05:42:00 8.9 8.4-10.2 ( mg/dL) Final Performing Location [facility] [address] [place] [address]
--- OUTSIDE RECORDS SUMMARY | 2024-02-13 21:52 | External Medical Summary | Continuity Of Care Document ---
Author Name Unknown Address [address] [place] [address] Organization [facility] ( ) Care Team Providers Care Ultrasound Specialist Name Role Phone Lin Mckeon Primary Care Provider [phone] Allergies Allergy Reaction Start Date End Date [...] Temperature SpO2 Blood Sugar Pulse Respirations 816 06076 8 74.00 mm[Hg] - Sitting 129.00 mm[Hg] - Sitting 151.00 NI 100.70 Oral 93.00 % 66.00/ min 18.00/min 47019 817 59732 3 148.00 NI 39454 817 97472 1 74.00 mm[Hg] - Lying Down 129.00 mm[Hg] - Lying Down 148.00 NI 100.70 Ear 66.00/ min 18.00/min 66898 817 93876 0 94037 817 52022 7 23626 817 62027 9 74.00 mm[Hg] - Sitting 139.00 mm[Hg] - Sitting 98.40 X-Other 95.00 % 59.00/ min 18.00/min 39662 818 74429 9 72.00 mm[Hg] - Sitting 122.00 mm[Hg] - Sitting 98.80 Ear 93.00 % 64.00/ min 18.00/min 01344 819 50391 3 72.00 mm[Hg] - Sitting 131.00 mm[Hg] - Sitting 99.20 Ear 98.00 % 73.00/ min 20.00/min 40072 820 16268 0 78.00 mm[Hg] - Sitting 130.00 mm[Hg] - Sitting 98.70 Ear 98.00 % 73.00/ min 18.00/min 73291 821 13151 6 80.00 mm[Hg] - Sitting 150.00 mm[Hg] - Sitting 98.20 Ear 95.00 % 89.00/ min 18.00/min 85313 822 59945 8 64 NI 79973 823 59607 0 70.00 mm[Hg] - Sitting 137.00 mm[Hg] - Sitting 98.80 X-Other 93.00 % 65.00/ min 18.00/min 19706 825 89272 5 70.00 mm[Hg] - Sitting 124.00 mm[Hg] - Sitting 98.60 Oral 97.00 % 64.00/ min 16.00/min 15677 826 44773 7 146.00 [place] 27104 826 21804 1 73.00 mm[Hg] - Sitting 145.00 mm[Hg] - Sitting 99.10 Ear 93.00 % 67.00/ min 20.00/min 14670 827 35758 4 82.00 mm[Hg] - Sitting 128.00 mm[Hg] - Sitting 98.60 Ear 94.00 % 76.00/ min 20.00/min 83000 828 63393 0 65.00 mm[Hg] - Sitting 130.00 mm[Hg] - Sitting 98.00 Oral 94.00 % 58.00/ min 18.00/min 50890 903 79208 4 71.00 mm[Hg] - Sitting 131.00 mm[Hg] - Sitting 99.70 Ear 94.00 % 68.00/ min 18.00/min 19820 903 51540 5 71.00 mm[Hg] - Sitting 131.00 mm[Hg] - Sitting 144.00 NI 99.70 Ear 68.00/ min 72232 903 03657 3 71.00 mm[Hg] - Sitting 131.00 mm[Hg] - Sitting 99.70 Ear 94.00 % 68.00/ min 16.00/min 02244 904 82275 0 69.00 mm[Hg] - Sitting 111.00 mm[Hg] - Sitting 98.60 Ear 94.00 % 69.00/ min 18.00/min Immunizations Vaccine Date Status COVID-19 08/31/2020 Completed COVID-19 09/28/2020 Completed COVID-19 04/30/2021 Completed COVID-19 03/11/2022 Completed COVID-19 03/07/2023 Completed Influenza 03/07/2023 Completed (PCV13)Pneumococcal 04/21/2014 Completed (PPSV23)Pneumococcal 01/19/2017 Completed TDaP 12/26/2023 Completed
--- OUTSIDE RECORDS SUMMARY | 2024-02-13 21:52 | External Medical Summary ---
Author Name Unknown Address Unknown Organization [facility] [address] [place] [address] Laboratory Report Ordering Provider Test Date Status PHILIP MADISON 02/02/2024 05:31:00 Final Observation Date Value Abnormality Reference (Units ) Status BUN 02/02/2024 05:31:00 13 6-20 (mg/dL) Final Creatinine 02/02/2024 05:31:00 0.9 0.5-1.0 (mg/dL) Final Glomerular filtration rate/1.73 sq M.predicted [Volume Rate/Area] in Serum, Plasma or Blood by Creatinine-based formula (CKD-EPI) 02/02/2024 05:31:00 64 >=60 (mL/min) Final eGFR is calculated based on the CKD-EPI 2020 equation. Sodium 02/02/2024 05:31:00 131 Below low normal 135 -146 (mmol/L) Final Potassium 02/02/2024 05:31:00 4.2 3.5-5.1 (m mol/L) Final Cl 02/02/2024 05:31:00 94 Below low normal 98- 107 (mmol/L) Final CO2 02/02/2024 05:31:00 27 22-32 (mmo l/L) Final Anion gap 02/02/2024 05:31:00 10 7-15 (mmol /L) Final Glucose 02/02/2024 05:31:00 114 70-120 (mg /dL) Final Calcium 02/02/2024 05:31:00 8.9 8.4-10.2 ( mg/dL) Final Performing Location [facility] [address] [place] [address]
--- OUTSIDE RECORDS SUMMARY | 2024-02-13 21:52 | External Medical Summary ---
Author Name Unknown Address Unknown Organization [facility] [address] [place] [id number] Laboratory Report Ordering Provider Test Date Status PHILIP MADISON 01/24/2024 05:55:00 Final Observation Date Value Abnormality Reference (Units ) Status WBC, Total 01/24/2024 05:55:00 5.17 4.00-10.8 0 (K/uL) Final RBC 01/24/2024 05:55:00 3.42 3.85-5.15 (M/uL) Final Hemoglobin 01/24/2024 05:55:00 9.0 Below low normal 12 .0-15.3 (g/dL) Final HCT 01/24/2024 05:55:00 29.0 Below low normal 36. 0-45.2 (%) Final MCV 01/24/2024 05:55:00 84.8 81.5-97.5 (fL) Final MCH 01/24/2024 05:55:00 26.3 27.0-34.0 (pg) Final MCHC 01/24/2024 05:55:00 31.0 32.0-36.0 (g/dL) Final RDW 01/24/2024 05:55:00 20.2 11.5-15.5 (%) Final Platelets 01/24/2024 05:55:00 207 140-400 (K /uL) Final MPV 01/24/2024 05:55:00 9.6 6.6-11.1 ( fL) Final Performing Location [facility] [address] [place] [address]
--- OUTSIDE RECORDS SUMMARY | 2024-02-13 21:52 | External Medical Summary | Summary of Care ---
Author Name Unknown Organization [facility] Address [address] [place] [address] Phone [phone] Care Team Providers Care Studio Musician Name Role Phone Unavailable Primary Care Provider Unavailabl e Encounter Details Date Type Department Care Team (Late st Contact Info) Description 01/23/2024 Orders Only Lab Mobile Phlebotomy [facility] [address] [place] [address] Lin Mckeon MD [address] [place] [address] [place] [address] Chronic kidney disease (CKD)*; Hyponatremia Allergies Active Allergy Reactions Criticality Noted Date Comments Bee Stings 01/25/2008 Morphine 01/24/2001 documented as of this encounter (statuses as of 01/24/2024) Medications Medication Sig Dispensed Refills Start Date [...] as of this encounter (statuses as of 01/24/2024) Active Problems Problem Noted Date Diagnosed Date DNR (do not resuscitate) 01/15/2024 Moderate dementia with mood disturbance 01/10/20 24 Closed trimalleolar fracture of right ankle 12/21 Iron deficiency anemia 01/10/2024 Cirrhosis of liver without ascites 01/10/2024 Liver mass 01/10/2024 Gastroesophageal reflux disease 01/10/2024 Moderate persistent asthma without complication 01/10/2024 History of GI bleed 01/10/2024 No transfusions per worship beliefs 01/10/2024 Chronic cough 01/10/2024 Implantable loop recorder present 01/10/2024 Vasovagal syncope 01/10/2024 Type 2 diabetes mellitus wit h hemoglobin A1c goal of less than 8.0% 03/19/2009 Overview: Per Diabetes Taxonomy. ICD-10 update of inactive term Hypothyroidism HTN, goal below 140/90 Overview: Modified per HTN protocol #16. documented as of this encounter (statuses as of 01/24/2024) Resolved Problems Problem Noted Date Diagnosed Date Resolved Date Stable angina 01/10/2024 Type 2 diabetes mellitus wit h hemoglobin A1c goal of less than 7.0% 03/19/2009 Overview: Per Diabetes Taxonomy. ICD-10 update of inactive term Diverticulitis of colon 12/21 documented as of this encounter (statuses as of 01/24/2024) Immunizations Name Administration Dates Next Due Pneumococcal [...] Care Team (Late st Contact Info) Description 01/24/2024 5:40 AM EDT Laboratory Lab Mobile Phlebotomy [facility] [address] [facility] [place] [address] [facility] [address] [place] [address] Arrived 01/25/2024 6:30 AM EDT Group Home Visit [facility] [address] [address] Denise Brice PA-C [facility] [place] [address] Scheduled Orders Name Type Priority Associated Diagnoses Orde r Schedule CBC WITH WBC DIFFERENTIAL Lab Routine Chronic kidney disease (CKD) Hyponatremia Expected: 01/24/2024, Expires: 2025 BASIC METABOLIC PANEL Lab Routine Chronic kidney disease (CKD) Hyponatremia Expected: 01/24/2024, Expires: 2025 Health Maintenance Due Date Last Done Comments [...] as of this encounter Visit Diagnoses Diagnosis Chronic kidney disease (CKD)- Primary Chronic kidney disease, unspecified Hyponatremia Hyposmolality and/or hyponatremia documented in this encounter
--- OUTSIDE RECORDS SUMMARY | 2024-02-13 21:52 | External Medical Summary | Continuity Of Care Document ---
Author Name Unknown Address [address] [place] [address] Organization [facility] ( ) Care Team Providers Care Rolled Materials Worker Name Role Phone Lin Mckeon Primary Care Provider [phone] Allergies Allergy Reaction Start Date End Date [...] Temperature SpO2 Blood Sugar Pulse Respirations 816 55717 8 74.00 mm[Hg] - Sitting 129.00 mm[Hg] - Sitting 151.00 NI 100.70 Oral 93.00 % 66.00/ min 18.00/min 12297 817 37407 3 148.00 NI 92868 817 63805 1 74.00 mm[Hg] - Lying Down 129.00 mm[Hg] - Lying Down 148.00 NI 100.70 Ear 66.00/ min 18.00/min 52866 817 80102 0 61176 817 84214 7 16795 817 90547 9 74.00 mm[Hg] - Sitting 139.00 mm[Hg] - Sitting 98.40 X-Other 95.00 % 59.00/ min 18.00/min 53953 818 13999 9 72.00 mm[Hg] - Sitting 122.00 mm[Hg] - Sitting 98.80 Ear 93.00 % 64.00/ min 18.00/min 92612 819 94712 3 72.00 mm[Hg] - Sitting 131.00 mm[Hg] - Sitting 99.20 Ear 98.00 % 73.00/ min 20.00/min 68279 820 31363 0 78.00 mm[Hg] - Sitting 130.00 mm[Hg] - Sitting 98.70 Ear 98.00 % 73.00/ min 18.00/min 18552 821 23412 6 80.00 mm[Hg] - Sitting 150.00 mm[Hg] - Sitting 98.20 Ear 95.00 % 89.00/ min 18.00/min 33740 822 54198 8 64 NI 10733 823 79139 0 70.00 mm[Hg] - Sitting 137.00 mm[Hg] - Sitting 98.80 X-Other 93.00 % 65.00/ min 18.00/min 51603 825 69792 5 70.00 mm[Hg] - Sitting 124.00 mm[Hg] - Sitting 98.60 Oral 97.00 % 64.00/ min 16.00/min 22497 826 50984 7 146.00 NI 80456 826 91720 1 73.00 mm[Hg] - Sitting 145.00 mm[Hg] - Sitting 99.10 Ear 93.00 % 67.00/ min 20.00/min 33911 827 19400 4 82.00 mm[Hg] - Sitting 128.00 mm[Hg] - Sitting 98.60 Ear 94.00 % 76.00/ min 20.00/min 10460 828 06433 0 65.00 mm[Hg] - Sitting 130.00 mm[Hg] - Sitting 98.00 Oral 94.00 % 58.00/ min 18.00/min Immunizations Vaccine Date Status COVID-19 08/31/2020 Completed COVID-19 09/28/2020 Completed COVID-19 04/30/2021 Completed COVID-19 03/11/2022 Completed COVID-19 03/07/2023 Completed Influenza 03/07/2023 Completed (PCV13)Pneumococcal 04/21/2014 Completed (PPSV23)Pneumococcal 01/19/2017 Completed TDaP 12/26/2023 Completed
--- OUTSIDE RECORDS SUMMARY | 2024-02-13 21:52 | External Medical Summary ---
Author Name Unknown Address Unknown Organization [facility] [address] [place] [address] Laboratory Report Ordering Provider Test Date Status PHILIP MADISON 01/24/2024 05:55:00 Final Observation Date Value Abnormality Reference (Units ) Status SYNC LEUKOCYTES IN BLOOD BY AUTOMATED COUNT 01/24/2024 05:55:00 5.17 4.00-10.80 (K/uL) Final Segs 01/24/2024 05:55:00 60.7 40.0-75.0 (%) Final Lymphs % 01/24/2024 05:55:00 22.4 18.0-42.0 (%) Final Monos 01/24/2024 05:55:00 9.5 1.0-11.0 (%) Final Eosinophils 01/24/2024 05:55:00 7.0 Above high normal 0.0-6.0 (%) Final Basos 01/24/2024 05:55:00 0.4 0.0-2.0 (%) Final Absolute Segs 01/24/2024 05:55:00 3.14 1.80-7.70 (K/uL) Final Lymphs, absolute 01/24/2024 05:55:00 1.16 1.00-4.80 (K/ul) Final Monos, Abs 01/24/2024 05:55:00 0.49 0.00-1.10 (K/uL) Final Eos, Abs 01/24/2024 05:55:00 0.36 0.00-0.70 (K/uL) Final Basos, Abs 01/24/2024 05:55:00 0.02 0.00-0.20 (K/uL) Final Performing Location [facility] [address] [place] [address]
--- OUTSIDE RECORDS SUMMARY | 2024-02-13 21:52 | External Medical Summary ---
Author Name Unknown Address Unknown Organization [facility] [address] [place] [id number] Laboratory Report Ordering Provider Test Date Status JENNA PEARCE 01/29/2024 05:48:00 Final Observation Date Value Abnormality Reference (Units ) Status BUN 01/29/2024 05:48:00 14 6-20 (mg/dL) Final Creatinine 01/29/2024 05:48:00 0.9 0.5-1.0 (mg/dL) Final Glomerular filtration rate/1.73 sq M.predicted [Volume Rate/Area] in Serum, Plasma or Blood by Creatinine-based formula (CKD-EPI) 01/29/2024 05:48:00 69 >=60 (mL/min) Final eGFR is calculated based on the CKD-EPI 2020 equation. Sodium 01/29/2024 05:48:00 132 Below low normal 135 -146 (mmol/L) Final Potassium 01/29/2024 05:48:00 4.0 3.5-5.1 (m mol/L) Final Cl 01/29/2024 05:48:00 95 Below low normal 98- 107 (mmol/L) Final CO2 01/29/2024 05:48:00 25 22-32 (mmo l/L) Final Anion gap 01/29/2024 05:48:00 12 7-15 (mmol /L) Final Glucose 01/29/2024 05:48:00 116 70-120 (mg /dL) Final Calcium 01/29/2024 05:48:00 8.6 8.4-10.2 ( mg/dL) Final Performing Location [facility] [address] [place] [id number]
--- OUTSIDE RECORDS SUMMARY | 2024-02-13 21:52 | External Medical Summary | Summary of Care ---
Author Name Unknown Organization [facility] Address [address] [place] [address] Phone [phone] Care Team Providers Care Fuel Handler Name Role Phone Unavailable Primary Care Provider Unavailabl e Reason for Visit * Reason Onset Date Comments Skilled Visit 01/29/2024 Encounter Details Date Type Department Care Team (Latest Contact Info) Description 01/29/2024 8:00 AM EDT Fdc Visit [facility] [address] [place] [address] Denise Brice PA-C [address] [place] [address] Closed trimalleolar fracture of right ankle with routine healing, subsequent encounter*; Moderate dementia with mood disturbance, unspecified dementia type (HCC); Hyponatremia Allergies Active Allergy Reactions Criticality Noted Date Comments Bee Stings 01/25/2008 Morphine 01/24/2001 documented as of this encounter (statuses as of 01/29/2024) Medications Medication Sig Dispensed Refills Start Date [...] as of this encounter (statuses as of 01/29/2024) Active Problems Problem Noted Date Diagnosed Date DNR (do not resuscitate) 01/15/2024 Moderate dementia with mood disturbance 01/10/20 Closed trimalleolar fracture of right ankle 12/21 Iron deficiency anemia 01/10/2024 Cirrhosis of liver without ascites 01/10/2024 Liver mass 01/10/2024 Gastroesophageal reflux disease 01/10/2024 Moderate persistent asthma without complication 01/10/2024 History of GI bleed 01/10/2024 No transfusions per catholic beliefs 01/10/2024 Chronic cough 01/10/2024 Implantable loop recorder present 01/10/2024 Vasovagal syncope 01/10/2024 Type 2 diabetes mellitus wit h hemoglobin A1c goal of less than 8.0% 03/19/2009 Overview: Per Diabetes Taxonomy. ICD-10 update of inactive term Hypothyroidism HTN, goal below 140/90 Overview: Modified per HTN protocol #16. documented as of this encounter (statuses as of 01/29/2024) Resolved Problems Problem Noted Date Diagnosed Date Resolved Date Stable angina 01/10/2024 Type 2 diabetes mellitus wit h hemoglobin A1c goal of less than 7.0% 03/19/2009 Overview: Per Diabetes Taxonomy. ICD-10 update of inactive term Diverticulitis of colon 12/21 documented as of this encounter (statuses as of 01/29/2024) Immunizations Name Administration Dates Next Due Pneumococcal [...] Progress Notes * Denise Brice PA-C - 01/29/2024 1:18 PM EDT Name: Chanelle French Date of :1945 TRANSITION EVENT: Type: Skilled visit Date: January 28 Code Status: No Code This note pertains to care provided at [facility]. Please see facility medical record for original note. This note is not to be edited or addended in [facility]. Editing or addending needs to occur in the facilities medical record. Subjective: Chanelle French is a 79 year old female. Patient being seen for skilled visit Chief Complaint Patient presents with Skilled Visit HPI: pt initially admitted for rehabilitation following trimalleolar fx right ankle not requiring surgery. Pt has less ankle swelling now. Is still NWB right RLE per podiatry orders. Slow progress with Therapy. Pt did require readmission to [facility] due to severe hyponatremia which was corrected. Pt isnow drinking fluids better. Eating well. Sleeping well at night. BMS and voiding ok. Glucoses stable. Getting accuchecks QID. Pt and requests less frequent checks. CBC Results: Results for orders placed or [...] Results: Lab Results Component Value Date/Time HGB 9.0 (L) 01/24/2024 05:55 AM HGB 9.4 (L) 01/12/2024 05:35 AM Basic Panel Results: Results for orders placed or performed in visit on 01/29/24 BASIC METABOLIC PANEL Result Value Ref Range BUN 14 6 - 20 mg/dL Creatinine 0.9 0.5 - 1.0 mg/dL Estimated Glomerular Filtration Rate 69 >=60 mL/min Sodium 132 (L) 135 - 146 mmol/L Potassium 4.0 3.5 - 5.1 mmol/L Chloride 95 (L) 98 - 107 mmol/L CO2 25 22 - 32 mmol/L Anion Gap 12 7 - 15 mmol/L Glucose 116 70 - 120 mg/dL Calcium 8.6 8.4 - 10.2 mg/dL Creatinine Results: Lab Results Component Value Date/Time CREATININE - [facility] 0.9 01/29/2024 05:48 AM CREATININE - [facility] 1.1 (H) 01/24/2024 05:55 AM CREATININE - [facility] 1.1 (H) 01/17/2024 05:48 AM CREATININE - [facility] 0.8 01/25/2008 11:04 AM CREATININE, RANDOM URINE - [facility] 184 01/25/2008 11:04 AM Potassium Results: Lab Results Component Value Date/Time POTASSIUM - [facility] 4.0 01/29/2024 05:48 AM POTASSIUM - [facility] 4.7 01/24/2024 05:55 AM POTASSIUM - [facility] 4.8 01/17/2024 05:48 AM POTASSIUM - [facility] 4.0 01/25/2008 11:04 AM Sodium Results: Lab Results Component Value Date/Time SODIUM - [facility] 132 (L) 01/29/2024 05:48 AM SODIUM - [facility] 131 (L) 01/24/2024 05:55 AM SODIUM - [facility] 119 (LL) 01/17/2024 05:48 AM SODIUM - [facility] 139 01/25/2008 11:04 AM Chloride Results: Lab Results Component Value Date/Time CHLORIDE - [facility] 95 (L) 01/29/2024 05:48 AM CHLORIDE - [facility] 96 (L) 01/24/2024 05:55 AM CHLORIDE - [facility] 83 (L) 01/17/2024 05:48 AM CHLORIDE - [facility] 103 01/25/2008 11:04 [...] History of GI bleed No transfusions per catholic beliefs Chronic cough Implantable loop recorder present Vasovagal syncope DNR (do not resuscitate) Past Medical History: Diagnosis Date Closed trimalleolar fracture of right ankle 01/10/2024 Diverticulitis of colon DM type 2, goal A1c below 7 HTN, goal to be determined Hypothyroidism Stable angina (HCC) Past Surgical History: Procedure Laterality Date COLONOSCOPY 05/22/05 dr roth REMOVE GALLBLADDER SIGMOIDOSCOPY, DIAGNOSTIC 01/24/[address] Raygoza at [facility]/ - WN to 45 cm TOTAL ABD [...] list as this cannot be edited in [employer] Review of Systems: obtained from pt and staff Constitutional ROS: No change in weight, No change in weakness, No change in fatigue and No fevers,sweats, or chills Nose ROS: No nasal stuffiness [...] sounds and no masses or organomegaly Extremities: , no edema, no clubbing, no cyanosis Skin: skin color, texture, turgor are normal, no rashes or significant lesions ASSESSMENT: Closed trimalleolar fracture of right ankle with routine healing, subsequent encounter (Primary) Stable Pain controlled Continue with Therapy as directed Followup with podiatry 02/15/24 at 0945 Moderate dementia with mood disturbance, unspecified dementia type (HCC) Stable mood and mentation Continue Aricept 5mg dailiy and Lexapro 20mg dailiy Hyponatremia Stable currently Will repeat BMP on Monday PLAN: Reviewed CBC, BMP, Lytes and Continue present medication(s):as ordered. [facility] Given: reduce accuchecks to fasting only Electronically signed by: Denise Brice PA-C Over [...] 03/07/2023, 03/03/2022, 03/02/2021, Additional history exists GFR 01/28/2025 01/29/2024, 08/2023, 01/17/2024, Additional history exists DTap/Tdap Vaccines (2 - [...] dementia type (HCC) Hyponatremia Hyposmolality and/or hyponatremia documented in this encounter
--- OUTSIDE RECORDS SUMMARY | 2024-02-13 21:52 | External Medical Summary | Summary of Care ---
Author Name Unknown Organization [facility] Address [address] [place] [address] Phone [phone] Care Team Providers Care Leaf Stripper Name Role Phone Unavailable Primary Care Provider Unavailabl e Reason for Visit * Reason Onset Date Comments Skilled Visit 01/30/2024 Encounter Details Date Type Department Care Team (Latest Contact Info) Description 01/30/2024 10:00 AM EDT Long-Term Visit [facility] [address] [place] [address] Denise Brice PA-C [address] [place] [address] Closed trimalleolar fracture of right ankle with routine healing, subsequent encounter*; Moderate dementia with mood disturbance, unspecified dementia type (HCC); Type 2 diabetes mellitus with hemoglobin A1c goal of less than 8.0% (HCC); Hyponatremia Allergies Active Allergy Reactions Criticality Noted Date Comments Bee Stings 01/25/2008 Morphine 01/24/2001 documented as of this encounter (statuses as of 01/30/2024) Medications Medication Sig Dispensed Refills Start Date [...] as of this encounter (statuses as of 01/30/2024) Active Problems Problem Noted Date Diagnosed Date DNR (do not resuscitate) 01/15/2024 Moderate dementia with mood disturbance 01/10/20 24 Closed trimalleolar fracture of right ankle 12/21 Iron deficiency anemia 01/10/2024 Cirrhosis of liver without ascites 01/10/2024 Liver mass 01/10/2024 Gastroesophageal reflux disease 01/10/2024 Moderate persistent asthma without complication 01/10/2024 History of GI bleed 01/10/2024 No transfusions per episcopalian beliefs 01/10/2024 Chronic cough 01/10/2024 Implantable loop recorder present 01/10/2024 Vasovagal syncope 01/10/2024 Type 2 diabetes mellitus wit h hemoglobin A1c goal of less than 8.0% 03/19/2009 Overview: Per Diabetes Taxonomy. ICD-10 update of inactive term Hypothyroidism HTN, goal below 140/90 Overview: Modified per HTN protocol #16. documented as of this encounter (statuses as of 01/30/2024) Resolved Problems Problem Noted Date Diagnosed Date Resolved Date Stable angina 01/10/2024 Type 2 diabetes mellitus wit h hemoglobin A1c goal of less than 7.0% 03/19/2009 Overview: Per Diabetes Taxonomy. ICD-10 update of inactive term Diverticulitis of colon 12/21 documented as of this encounter (statuses as of 01/30/2024) Immunizations Name Administration Dates Next Due Pneumococcal [...] *SPIROMETRY ONCE FOR ASTHMA-ADULT 01/12/2024 COVID-19 Vaccine (2022- season) 2024 03/07/2023, 03/11/2022, 04/30/2021, Additional history [...] than 8.0% (HCC) Hyponatremia Hyposmolality and/or hyponatremia documented in this encounter
--- OUTSIDE RECORDS SUMMARY | 2024-02-13 21:52 | External Medical Summary | Summary of Care ---
Author Name Unknown Organization [facility] Address [address] [place] [address] Phone [phone] Care Team Providers Care Antenna Engineer Name Role Phone Unavailable Primary Care Provider Unavailabl e Encounter Details Date Type Department Care Team (Late st Contact Info) Description 02/01/2024 Orders Only Lab [facility] [address] [place] [address] Lin Mckeon MD [address] [place] [address] [place] [address] Hyponatremia* Allergies Active Allergy Reactions Criticality Noted Date Comments Bee Stings 01/25/2008 Morphine 01/24/2001 documented as of this encounter (statuses as of 02/01/2024) Medications Medication Sig Dispensed Refills Start Date [...] as of this encounter (statuses as of 02/01/2024) Active Problems Problem Noted Date Diagnosed Date DNR (do not resuscitate) 01/15/2024 Moderate dementia with mood disturbance 01/10/20 24 Closed trimalleolar fracture of right ankle 12/21 Iron deficiency anemia 01/10/2024 Cirrhosis of liver without ascites 01/10/2024 Liver mass 01/10/2024 Gastroesophageal reflux disease 01/10/2024 Moderate persistent asthma without complication 01/10/2024 History of GI bleed 01/10/2024 No transfusions per confucianist beliefs 01/10/2024 Chronic cough 01/10/2024 Implantable loop recorder present 01/10/2024 Vasovagal syncope 01/10/2024 Type 2 diabetes mellitus wit h hemoglobin A1c goal of less than 8.0% 03/19/2009 Overview: Per Diabetes Taxonomy. ICD-10 update of inactive term Hypothyroidism HTN, goal below 140/90 Overview: Modified per HTN protocol #16. documented as of this encounter (statuses as of 02/01/2024) Resolved Problems Problem Noted Date Diagnosed Date Resolved Date Stable angina 01/10/2024 Type 2 diabetes mellitus wit h hemoglobin A1c goal of less than 7.0% 03/19/2009 Overview: Per Diabetes Taxonomy. ICD-10 update of inactive term Diverticulitis of colon 12/21 documented as of this encounter (statuses as of 02/01/2024) Immunizations Name Administration Dates Next Due Pneumococcal [...] Upcoming Encounters Date Type Department Care Team (Arianne st Contact Info) Description 02/02/2024 5:30 AM EDT Laboratory Lab [facility] [address] [place] [address] [place] [address] Scheduled Orders Name Type Priority Associated Diagnoses Orde r Schedule BASIC METABOLIC PANEL Lab Routine Hyponatremia Expected: 02/01/2024, Expires: 01/31/2025 HGB Lab Routine Hyponatremia Expected: 02/01/2024, Expires: 01/31/2025 HCT Lab Routine Hyponatremia Expected: 02/01/2024, Expires: 01/31/2025 Health Maintenance Due Date Last Done Comments [...]
--- OUTSIDE RECORDS SUMMARY | 2024-02-13 21:52 | External Medical Summary | Summary of Care ---
Author Name Unknown Organization [facility] Address [address] [place] [address] Phone [phone] Care Team Providers Care Lamination Machine Operator Name Role Phone Unavailable Primary Care Provider Unavailabl e Encounter Details Date Type Department Care Team (Late st Contact Info) Description 01/29/2024 Orders Only Lab [facility] [address] [place] [address] Kelsie Carias MD [address] [place] [address] [place] [address] Hyponatremia* Allergies Active Allergy Reactions Criticality [...] of GI bleed 01/10/2024 No transfusions per baptist beliefs 01/10/2024 Chronic cough 01/10/2024 Implantable loop [...] Care Team (Late st Contact Info) Description 01/29/2024 5:10 AM EDT Laboratory Lab [facility] [address] [place] [address] [place] [address] Arrived Scheduled Orders Name Type Priority Associated Diagnoses Orde r Schedule BASIC METABOLIC PANEL Lab Routine Hyponatremia Expected: 01/29/2024, Expires: 01/28/2025 Health Maintenance Due Date Last Done Comments [...] 03/07/2023, 03/03/2022, 03/02/2021, Additional history exists GFR 01/23/2025 01/24/2024, 12/21, 01/12/2024, Additional history exists DTap/Tdap Vaccines (2 - [...]
--- OUTSIDE RECORDS SUMMARY | 2024-02-13 21:52 | External Medical Summary | Continuity Of Care Document ---
Author Name Unknown Address [address] [place] [address] Organization [facility] ( ) Care Team Providers Care Salesperson Wigs Name Role Phone Lin Mckeon Primary Care Provider [phone] Allergies Allergy Reaction Start Date End Date [...] Temperature SpO2 Blood Sugar Pulse Respirations 816 96724 8 74.00 mm[Hg] - Sitting 129.00 mm[Hg] - Sitting 151.00 NI 100.70 Oral 93.00 % 66.00/ min 18.00/min 16646 817 37759 3 148.00 NI 67202 817 42568 1 74.00 mm[Hg] - Lying Down 129.00 mm[Hg] - Lying Down 148.00 NI 100.70 Ear 66.00/ min 18.00/min 34265 817 58445 0 17043 817 21839 7 04614 817 53170 9 74.00 mm[Hg] - Sitting 139.00 mm[Hg] - Sitting 98.40 X-Other 95.00 % 59.00/ min 18.00/min 07485 818 44340 9 72.00 mm[Hg] - Sitting 122.00 mm[Hg] - Sitting 98.80 Ear 93.00 % 64.00/ min 18.00/min 99823 819 75444 3 72.00 mm[Hg] - Sitting 131.00 mm[Hg] - Sitting 99.20 Ear 98.00 % 73.00/ min 20.00/min 67211 820 76204 0 78.00 mm[Hg] - Sitting 130.00 mm[Hg] - Sitting 98.70 Ear 98.00 % 73.00/ min 18.00/min 62742 821 17321 6 80.00 mm[Hg] - Sitting 150.00 mm[Hg] - Sitting 98.20 Ear 95.00 % 89.00/ min 18.00/min 20927 822 42566 8 64 NI 18062 823 30304 0 70.00 mm[Hg] - Sitting 137.00 mm[Hg] - Sitting 98.80 X-Other 93.00 % 65.00/ min 18.00/min 71289 825 72348 5 70.00 mm[Hg] - Sitting 124.00 mm[Hg] - Sitting 98.60 Oral 97.00 % 64.00/ min 16.00/min 19399 826 15056 7 146.00 NI 81199 826 88116 1 73.00 mm[Hg] - Sitting 145.00 mm[Hg] - Sitting 99.10 Ear 93.00 % 67.00/ min 20.00/min 25379 827 69930 4 82.00 mm[Hg] - Sitting 128.00 mm[Hg] - Sitting 98.60 Ear 94.00 % 76.00/ min 20.00/min 33134 828 29278 0 65.00 mm[Hg] - Sitting 130.00 mm[Hg] - Sitting 98.00 Oral 94.00 % 58.00/ min 18.00/min Immunizations Vaccine Date Status COVID-19 08/31/2020 Completed COVID-19 09/28/2020 Completed COVID-19 04/30/2021 Completed COVID-19 03/11/2022 Completed COVID-19 03/07/2023 Completed Influenza 03/07/2023 Completed (PCV13)Pneumococcal 04/21/2014 Completed (PPSV23)Pneumococcal 01/19/2017 Completed TDaP 12/26/2023 Completed
--- OUTSIDE RECORDS SUMMARY | 2024-02-13 21:52 | External Medical Summary | Continuity Of Care Document ---
Author Name Unknown Address [address] [place] [address] Organization [facility] ( ) Care Team Providers Care Reptile Keeper Name Role Phone Lin Mckeon Primary Care Provider [phone] Allergies Allergy Reaction Start Date End Date Status BEE VENOM PROTEIN (HONEY BEE) Swelling Facial/tongue/throat/hands/fa ce/feet Active CEFAZOLIN Difficulty breathing Acti ve ADHESIVE Hives Active AZITHROMYCIN Active CANDESARTAN Cough Active ENALAPRIL Cough Active LISINOPRIL Cough Active MORPHINE Disorientation Active VITAL SIGNS Date Time Diastolic blood pressure Systolic blood pressure Body height Body weight Temperature SpO2 Blood Sugar Pulse Respirations 93160 816 15365 8 74.00 mm[Hg] - Sitting 129.00 mm[Hg] - Sitting 151.00 NI 100.70 Oral 93.00 % 66.00/ min 18.00/min 32236 817 97414 3 148.00 NI 55275 817 29039 1 74.00 mm[Hg] - Lying Down 129.00 mm[Hg] - Lying Down 148.00 NI 100.70 Ear 66.00/ min 18.00/min 96385 817 37549 0 55969 817 43215 7 39089 817 45642 9 74.00 mm[Hg] - Sitting 139.00 mm[Hg] - Sitting 98.40 X-Other 95.00 % 59.00/ min 18.00/min 00773 818 31458 9 72.00 mm[Hg] - Sitting 122.00 mm[Hg] - Sitting 98.80 Ear 93.00 % 64.00/ min 18.00/min 64771 819 93108 3 72.00 mm[Hg] - Sitting 131.00 mm[Hg] - Sitting 99.20 Ear 98.00 % 73.00/ min 20.00/min 31573 820 02591 0 78.00 mm[Hg] - Sitting 130.00 mm[Hg] - Sitting 98.70 Ear 98.00 % 73.00/ min 18.00/min 15711 821 35119 6 80.00 mm[Hg] - Sitting 150.00 mm[Hg] - Sitting 98.20 Ear 95.00 % 89.00/ min 18.00/min 31691 822 78791 8 64 NI 41859 823 08736 0 70.00 mm[Hg] - Sitting 137.00 mm[Hg] - Sitting 98.80 X-Other 93.00 % 65.00/ min 18.00/min 51929 825 13464 5 70.00 mm[Hg] - Sitting 124.00 mm[Hg] - Sitting 98.60 Oral 97.00 % 64.00/ min 16.00/min 77816 826 04092 7 146.00 NI 89634 826 80587 1 73.00 mm[Hg] - Sitting 145.00 mm[Hg] - Sitting 99.10 Ear 93.00 % 67.00/ min 20.00/min 03930 827 41656 4 82.00 mm[Hg] - Sitting 128.00 mm[Hg] - Sitting 98.60 Ear 94.00 % 76.00/ min 20.00/min 87619 828 29840 0 65.00 mm[Hg] - Sitting 130.00 mm[Hg] - Sitting 98.00 Oral 94.00 % 58.00/ min 18.00/min 07336 903 09576 4 71.00 mm[Hg] - Sitting 131.00 mm[Hg] - Sitting 99.70 Ear 94.00 % 68.00/ min 18.00/min 10226 903 54465 5 71.00 mm[Hg] - Sitting 131.00 mm[Hg] - Sitting 144.00 NI 99.70 Ear 68.00/ min 65273 903 46501 3 71.00 mm[Hg] - Sitting 131.00 mm[Hg] - Sitting 99.70 Ear 94.00 % 68.00/ min 16.00/min Immunizations Vaccine Date Status COVID-19 08/31/2020 Completed COVID-19 09/28/2020 Completed COVID-19 04/30/2021 Completed COVID-19 03/11/2022 Completed COVID-19 03/07/2023 Completed Influenza 03/07/2023 Completed (PCV13)Pneumococcal 04/21/2014 Completed (PPSV23)Pneumococcal 01/19/2017 Completed TDaP 12/26/2023 Completed
--- OUTSIDE RECORDS SUMMARY | 2024-02-13 21:52 | External Medical Summary ---
Author Name Unknown Address Unknown Organization [facility] [address] [place] [id number] Laboratory Report Ordering Provider Test Date Status PHILIP MADISON 01/24/2024 05:55:00 Final Observation Date Value Abnormality Reference (Units ) Status BUN 01/24/2024 05:55:00 14 6-20 (mg/dL) Final Creatinine 01/24/2024 05:55:00 1.1 Above high normal 0.5-1.0 (mg/dL) Final Glomerular filtration rate/1.73 sq M.predicted [Volume Rate/Area] in Serum, Plasma or Blood by Creatinine-based formula (CKD-EPI) 01/24/2024 05:55:00 53 Below low normal >=60 (mL/min) Final eGFR is calculated based on the CKD-EPI 2020 equation. Sodium 01/24/2024 05:55:00 131 Below low normal 135 -146 (mmol/L) Final Potassium 01/24/2024 05:55:00 4.7 3.5-5.1 (m mol/L) Final Cl 01/24/2024 05:55:00 96 Below low normal 98- 107 (mmol/L) Final CO2 01/24/2024 05:55:00 23 22-32 (mmo l/L) Final Anion gap 01/24/2024 05:55:00 12 7-15 (mmol /L) Final Glucose 01/24/2024 05:55:00 110 70-120 (mg /dL) Final Calcium 01/24/2024 05:55:00 8.6 8.4-10.2 ( mg/dL) Final Performing Location LAB[facility]ATORY [facility] [address] [place] [id number]
--- OUTSIDE RECORDS SUMMARY | 2024-02-13 21:52 | External Medical Summary | Summary of Care ---
Author Name Unknown Organization [facility] Address [address] [place] [address] Phone [phone] Care Team Providers Care Doctor Of Podiatry Name Role Phone Unavailable Primary Care Provider Unavailabl e Reason for Visit * Reason Onset Date Comments Shelter Visit - Readmission 01/25/2024 Encounter Details Date Type Department Care Team (Latest Contact Info) Description 01/25/2024 6:30 AM EDT Shelter Visit [facility] [address] [place] [address] Denise Brice PA-C [address] [place] [address] Hyponatremia*; Moderate dementia with mood disturbance, unspecified dementia type (HCC); Moderate persistent asthma without complication; Closed trimalleolar fracture of right ankle with routine healing, subsequent encounter; HTN, goal below 140/90; Acquired hypothyroidism; Cirrhosis of liver without ascites, unspecified hepatic cirrhosis type (HCC) Allergies Active Allergy Reactions Criticality Noted Date Comments Bee Stings 01/25/2008 Morphine 01/24/2001 documented as of this encounter (statuses as of 01/25/2024) Medications Medication Sig Dispensed Refills Start Date [...] as of this encounter (statuses as of 01/25/2024) Active Problems Problem Noted Date Diagnosed Date DNR (do not resuscitate) 01/15/2024 Moderate dementia with mood disturbance 01/10/20 Closed trimalleolar fracture of right ankle 12/21 Iron deficiency anemia 01/10/2024 Cirrhosis of liver without ascites 01/10/2024 Liver mass 01/10/2024 Gastroesophageal reflux disease 01/10/2024 Moderate persistent asthma without complication 01/10/2024 History of GI bleed 01/10/2024 No transfusions per islam beliefs 01/10/2024 Chronic cough 01/10/2024 Implantable loop recorder present 01/10/2024 Vasovagal syncope 01/10/2024 Type 2 diabetes mellitus wit h hemoglobin A1c goal of less than 8.0% 03/19/2009 Overview: Per Diabetes Taxonomy. ICD-10 update of inactive term Hypothyroidism HTN, goal below 140/90 Overview: Modified per HTN protocol #16. documented as of this encounter (statuses as of 01/25/2024) Resolved Problems Problem Noted Date Diagnosed Date Resolved Date Stable angina 01/10/2024 Type 2 diabetes mellitus wit h hemoglobin A1c goal of less than 7.0% 03/19/2009 Overview: Per Diabetes Taxonomy. ICD-10 update of inactive term Diverticulitis of colon 12/21 documented as of this encounter (statuses as of 01/25/2024) Immunizations Name Administration Dates Next Due Pneumococcal [...] Diagnoses Diagnosis Hyponatremia- Primary Hyposmolality and/or hyponatremia Moderate dementia with mood disturbance, unspecified dementia type (HCC) Moderate persistent asthma without complication Unspecified asthma Closed trimalleolar fracture of right ankle with routine healing, subsequent encounter HTN, goal below 140/90 Unspecified essential hypertension Acquired hypothyroidism Unspecified hypothyroidism Cirrhosis of liver without ascites, unspecified hepatic cirrhosis type (HCC) documented in this encounter
--- OUTSIDE RECORDS SUMMARY | 2024-02-13 21:52 | External Medical Summary | Summary of Care ---
Author Name Unknown Organization [facility] Address [address] [place] [address] Phone [phone] Care Team Providers Care Route Sales Representative Name Role Phone Unavailable Primary Care Provider Unavailabl e Reason for Visit * Reason Onset Date Comments Skilled Visit 02/01/2024 Encounter Details Date Type Department Care Team (Latest Contact Info) Description 02/01/2024 7:30 AM EDT Alf Visit [facility] [address] [place] [address] Denise Brice PA-C [address] [place] [address] Closed trimalleolar fracture of right ankle with [...] of GI bleed 01/10/2024 No transfusions per gnosticist beliefs 01/10/2024 Chronic cough 01/10/2024 Implantable loop [...]
[2024-02-13] MEDS: ACETAMINOPHEN 325 MG TAB PO SCH (22:03)
[2024-02-13] MEDS: DOCUSATE SODIUM/SENNA 50/8.6MG TAB PO SCH (22:03)
[2024-02-13] MEDS: SODIUM ZIRCONIUM CYCLOSILICATE 10 GM PACKET PO STA (22:03)
[2024-02-13] MEDS: ASPIRIN 81 MG ECTAB PO SCH (22:04)
[2024-02-13] MEDS: SODIUM CHLORIDE 1 GM TABLET PO SCH (22:04)
[2024-02-13] MEDS: CLOTRIMAZOLE 1% CR 15 GM TUBE TOP SCH (22:04)
[2024-02-13] MEDS: GLYCOPYRROLATE 1 MG TAB PO SCH (22:05)
[2024-02-13] MEDS: IPRATROPIUM BROMIDE NASAL SPRAY 0.06% 15ML NAE SCH (22:05)
[2024-02-13] MEDS: MAGNESIUM OXIDE 400 MG TAB PO SCH (22:05)
[2024-02-13] MEDS: PANTOprazole 40 MG TAB PO SCH (22:06)
[2024-02-14] MEDS: SODIUM BICARBONATE 8.4% 150 MEQ in WATER, STERILE 1,000 ML IV SCH (00:51)
[2024-02-14 01:05] LABS: Calcium 8.3 mg/dl (8.6-10.3); Creatinine Clr Calc Pharmacy 51.1 ml/min; Est GFR (African American) 71.4 ml/min; Est GFR (Non-African American) 61.6 ml/min; Potassium 4.9 mmol/L (3.5-5.1)
--- NOTE | 2024-02-14 04:24 | Billing Data ---
Date of Service February 13, 2024 Coding Level of Care Code 77813 INT INP/OBS CARE
[2024-02-14] MEDS: LEVOTHYROXINE SODIUM 75 MCG TABLET PO SCH (05:19)
[2024-02-14 06:29] LABS: Basophils # (auto) 0.01 K/uL (0.00-0.20); Basophils % (auto) 0.1 %; Eosinophils # (auto) 0.18 K/uL (0.00-0.50); Eosinophils % (auto) 2.6 %; Hematocrit (blood only) 29.4 % (37.0-47.0); Hemoglobin 9.9 g/dl (12.0-16.0); Immature Granulocytes # (auto) 0.13 K/uL (0.01-0.20); Immature Granulocytes % (auto) 1.9 %; Lymphocytes # (auto) 1.33 K/uL (1.20-3.40); Lymphocytes % (auto) 19.2 %; Mean Corpuscular Hemoglobin 27.2 pg (25.0-34.0); Mean Corpuscular Hgb Conc 33.7 g/dL (32.0-36.0); Mean Corpuscular Volume 80.8 fL (80.0-100.0); Mean Platelet Volume 9.3 fL (9.4-12.4); Monocytes # (auto) 0.57 K/uL (0.11-0.59); Monocytes % (auto) 8.2 %; Neutrophils # (auto) 4.72 K/uL (1.40-6.50); Platelet Count 252 K/uL (130-400); RDW Standard Deviation 53.1 fL (36.4-46.3); Red Blood Count 3.64 M/uL (4.20-5.40); White Blood Count 6.94 K/ul (4.8-10.8)
[2024-02-14 06:42] LABS: BUN Creatinine Ratio 17.3 (10-20); Calcium 8.5 mg/dl (8.6-10.3); Creatinine Clr Calc Pharmacy 55.5 ml/min; Est GFR (African American) 78.9 ml/min; Est GFR (Non-African American) 68.1 ml/min; Potassium 4.6 mmol/L (3.5-5.1)
[2024-02-14] MEDS: MULTIVITAMIN TAB PO SCH (08:28)
[2024-02-14] MEDS: ESCITALOPRAM OXALATE 20 MG TAB PO SCH (08:28)
[2024-02-14] MEDS: DONEPEZIL HCL 5 MG TAB PO SCH (08:28)
[2024-02-14] MEDS: CETIRIZINE HCL 10 MG TABLET PO SCH (08:29)
[2024-02-14] MEDS: ATORVASTATIN 10 MG TAB PO SCH (08:29)
[2024-02-14 09:42] LABS: Magnesium 1.8 mg/dl (1.7-2.4)
[2024-02-14] MEDS: amLODIPine BESYLATE 5 MG TAB PO SCH (09:49)
--- OUTSIDE RECORDS SUMMARY | 2024-02-14 11:13 | External Medical Summary | Continuity Of Care Document ---
Author Name Unknown Address [address] [place] [address] Organization [facility] ( ) Care Team Providers Care Boner Meat Name Role Phone Lin Mckeon Primary Care Provider [phone] Allergies Allergy Reaction Start Date End Date [...] Need for assistance with personal care 01/24/20 Active U07.1 COVID-19 02/05/2024 Active VITAL SIGNS Date Time Diastolic blood pressure Systolic blood pressure Body height Body weight Temperature SpO2 Blood Sugar Pulse Respirations 30413 825 51038 5 70.00 mm[Hg] - Sitting 124.00 mm[Hg] - Sitting 98.60 Oral 97.00 % 64.00/ min 16.00/min 23724 826 03819 7 146.00 NI 75518 826 54355 1 73.00 mm[Hg] - Sitting 145.00 mm[Hg] - Sitting 99.10 Ear 93.00 % 67.00/ min 20.00/min 61244 827 01691 4 82.00 mm[Hg] - Sitting 128.00 mm[Hg] - Sitting 98.60 Ear 94.00 % 76.00/ min 20.00/min 78056 828 11746 0 65.00 mm[Hg] - Sitting 130.00 mm[Hg] - Sitting 98.00 Oral 94.00 % 58.00/ min 18.00/min 00676 903 22843 4 71.00 mm[Hg] - Sitting 131.00 mm[Hg] - Sitting 99.70 Ear 94.00 % 68.00/ min 18.00/min 44809 903 94977 5 71.00 mm[Hg] - Sitting 131.00 mm[Hg] - Sitting 144.00 NI 99.70 Ear 68.00/ min 29474 903 34914 3 71.00 mm[Hg] - Sitting 131.00 mm[Hg] - Sitting 99.70 Ear 94.00 % 68.00/ min 16.00/min 20740 904 89113 0 69.00 mm[Hg] - Sitting 111.00 mm[Hg] - Sitting 98.60 Ear 94.00 % 69.00/ min 18.00/min 27562 904 80811 7 155.00 NI 17442 905 14975 5 72.00 mm[Hg] - Sitting 116.00 mm[Hg] - Sitting 98.20 Oral 95.00 % 71.00/ min 16.00/min 88787 906 65394 0 66.00 mm[Hg] - Sitting 116.00 mm[Hg] - Sitting 99.00 X-Other 97.00 % 65.00/ min 18.00/min 25331 907 83824 0 68.00 mm[Hg] - Sitting 142.00 mm[Hg] - Sitting 98.80 X-Other 94.00 % 211.00 mg/dL 76.00/ min 18.00/min 63682 907 66715 0 145.00 [place] 40578 908 24447 4 145.00 NI 39411 908 76244 7 70.00 mm[Hg] - Sitting 127.00 mm[Hg] - Sitting 99.20 Oral 95.00 % 68.00/ min 18.00/min 97727 909 52299 9 73.00 mm[Hg] - Sitting 116.00 mm[Hg] - Sitting 99.00 Oral 98.00 % 74.00/ min 18.00/min 16443 910 07450 0 67.00 mm[Hg] - Sitting 135.00 mm[Hg] - Sitting 99.50 Ear 95.00 % 62.00/ min 18.00/min 17488 910 82991 6 149.00 NI 79830 911 12032 2 78.00 mm[Hg] - Sitting 136.00 mm[Hg] - Sitting 97.80 Ear 92.00 % 68.00/ min 18.00/min 37804 912 46824 0 64.00 mm[Hg] - Sitting 121.00 mm[Hg] - Sitting 98.70 Ear 95.00 % 58.00/ min 18.00/min 43770 914 91863 0 67.00 mm[Hg] - Sitting 121.00 mm[Hg] - Sitting 99.10 Oral 91.00 % 62.00/ min 18.00/min 58706 916 18764 7 99.40 Oral 33290 916 40512 6 74.00 mm[Hg] - Sitting 136.00 mm[Hg] - Sitting 98.40 X-Other 94.00 % 62.00/ min 16.00/min 78248 917 47659 0 77.00 mm[Hg] - Sitting 141.00 mm[Hg] - Sitting 99.30 Ear 95.00 % 59.00/ min 20.00/min 76547 917 05888 2 98.60 Oral 92754 918 00847 3 98.80 Ear 95.00 % 16571 918 22421 0 99.00 Ear 94473 918 52991 7 99.60 Ear 64470 918 53264 2 77.00 mm[Hg] - Sitting 136.00 mm[Hg] - Sitting 98.60 X-Other 92.00 % 62.00/ min 18.00/min 97685 919 22156 0 53.00 mm[Hg] - Sitting 152.00 mm[Hg] - Sitting 98.20 Ear 94.00 % 64.00/ min 18.00/min 72213 919 69121 7 98.70 Oral 01871 919 06032 6 98.20 Oral 23704 920 81053 4 149.20 NI 51003 921 51142 6 62.00 mm[Hg] - Sitting 132.00 mm[Hg] - Sitting 97.30 Oral 94.00 % 68.00/ min 18.00/min 35116 922 61837 3 73.00 mm[Hg] - Sitting 124.00 mm[Hg] - Sitting 97.90 Ear 94.00 % 63.00/ min 20.00/min 82167 923 43267 7 98.40 Oral 83325 923 67353 2 98.40 Ear 53371 923 28707 9 72.00 mm[Hg] - Sitting 123.00 mm[Hg] - Sitting 98.80 Oral 98.00 % 69.00/ min 18.00/min 87181 924 10419 7 98.10 Oral 29678 924 32595 9 98.00 Oral 65788 924 87038 3 98.10 Oral 78995 924 13828 8 98.00 Oral 93191 924 60617 4 97.00 Ear Immunizations Vaccine Date Status COVID-19 08/31/2020 Completed COVID-19 09/28/2020 Completed COVID-19 04/30/2021 Completed COVID-19 03/11/2022 Completed COVID-19 03/07/2023 Completed Influenza 03/07/2023 Completed (PCV13)Pneumococcal 04/21/2014 Completed (PPSV23)Pneumococcal 01/19/2017 Completed TDaP 12/26/2023 Completed
--- OUTSIDE RECORDS SUMMARY | 2024-02-14 11:13 | External Medical Summary | Summary of Care ---
Author Name Unknown Organization [facility] Address [address] [place] [address] Phone [phone] Care Team Providers Care Balance Staff Inspector Name Role Phone Unavailable Primary Care Provider Unavailabl e Reason for Visit * Reason Onset Date Comments Complicated Acute Visit 02/13/2024 Encounter Details Date Type Department Care Team (Latest Contact Info) Description 02/13/2024 6:00 AM EDT Care Home Visit [facility] [address] [email or web address] [address] Denise Brice PA-C [address] [place] [address] Metabolic encephalopathy*; Hyponatremia; History of 2019 novel coronavirus disease (COVID-19); Closed trimalleolar fracture of right ankle with routine healing, subsequent encounter; Pain and swelling of lower leg, right; Moderate dementia with mood disturbance, unspecified dementia type (HCC); Cirrhosis of liver without ascites, unspecified hepatic cirrhosis type (HCC); Type 2 diabetes mellitus with hemoglobin A1c goal of less than 8.0% (HCC) Allergies Active Allergy Reactions Criticality Noted Date Comments Bee Stings 01/25/2008 Morphine 01/24/2001 documented as of this encounter (statuses as of 02/13/2024) Medications Medication Sig Dispensed Refills Start Date [...] by mouth in the morning. 02/12/2024 Active documented as of this encounter (statuses as of 02/13/2024) Active Problems Problem Noted Date Diagnosed Date [...] as of this encounter (statuses as of 02/13/2024) Resolved Problems Problem Noted Date Diagnosed Date Resolved Date Stable angina 01/10/2024 Type 2 diabetes mellitus wit h hemoglobin A1c goal of less than 7.0% 03/19/2009 Overview: Per Diabetes Taxonomy. ICD-10 update of inactive term Diverticulitis of colon 12/21 documented as of this encounter (statuses as of 02/13/2024) Immunizations Name Administration Dates Next Due Pneumococcal [...] Progress Notes * Denise Brice PA-C - 02/13/2024 9:08 AM EDT Name: Chanelle French Date of :1945 TRANSITION EVENT: Type: Complicated acute visit Date: February 12 Code Status: No Code This note pertains to care provided at [facility]. Please see facility medical record for original note. This note is not to be edited or addended in [employer]. Editing or addending needs to occur in the facilities medical record. Subjective: Chanelle French is a 79 year old female. Patient being seen for change in condition Chief Complaint Patient presents with Complicated Acute Visit HPI: pt is initally admitted to [facility] on 01/10/24 for rehabilitation following a trimalleolar right ankle fracture . No surgical intervention required. Pt has been ambulating NWB to [facility]. Pt developed severe hyponatremia in SNF with Na+ 119 on 01/17/24. Pt was readmitted to [facility] and received IVF and readmitted back to SNF. Pt's Na+ levels have been ranging in the 128 to 130 range following. She was begun on NaCl tablets 1 GM daily. She remained hydrated. On Chanelle French is a 79 year old female patient. On 02/05/24, pt tested postive for Covid 19. She completed course of Paxlovid and has been recovering until about three days when she began having increased cough and chest congestion and fatigue. Na+ was again low at 128, K+: 5.3, creatinine 1.4 ( normal 1.0) and pt was given two liters of IVF with repeat Na+ yesterday 122 with K+ and renal function returning to baseline. Chest xray showed NAD. Early this morning, pt was noted to have RLE increased pain with some increased swellling. No redness or increased warmth. No chest pains. O2 saturations >90%. Pt is more lethargic and repeatedly states "I feel so tired". She remains afebrile. Denies any dysuria. Pt had xray of right ankle yesterday per podiatry request and showed good healing of trimalleolar fx. She also had her NaCl tablets increased to 1 G BID with repeat BMP pending for today. CBC Results: Results for orders placed or performed in visit on 02/09/24 CBC Result Value Ref Range WBC 7.09 4.00 - 10.80 K/uL RBC 3.46 3.85 - 5.15 M/uL HGB 9.3 (L) 12.0 - 15.3 g/dL HCT 29.8 (L) 36.0 - 45.2 % MCV 86.1 81.5 - 97.5 fL MCH 26.9 27.0 - 34.0 pg MCHC 31.2 32.0 - 36.0 g/dL RDW 18.5 11.5 - 15.5 % PLT 208 140 - 400 K/uL MPV 10.4 6.6 - 11.1 fL Hemoglobin Results: Lab Results Component Value Date/Time HGB 9.3 (L) 02/09/2024 05:45 AM HGB 9.1 (L) 02/02/2024 05:31 AM HGB 9.0 (L) 01/24/2024 05:55 AM Basic Panel Results: Results for orders [...] POTASSIUM - [facility] 4.0 01/25/2008 11:04 AM Chloride Results: Lab Results Component Value Date/Time CHLORIDE - [facility] 89 (L) 02/12/2024 05:38 AM CHLORIDE - [facility] 89 (L) 02/09/2024 05:45 AM CHLORIDE - [facility] 92 (L) 02/07/2024 05:42 AM CHLORIDE - [facility] 103 01/25/2008 11:04 AM ICD-10-CM 1. Metabolic encephalopathy G93.41 2. Hyponatremia E87.1 3. History of 2019 novel coronavirus disease (COVID-19) Z86.16 4. Closed trimalleolar fracture of right ankle with routine healing, subsequent encounter S82.154J 5. Pain and swelling of lower leg, right M79.661 M79.89 6. Moderate dementia with mood disturbance, unspecified dementia type (HCC) F03.B3 7. Cirrhosis of liver without ascites, unspecified hepatic cirrhosis type (HCC) K74.60 8. Type 2 diabetes mellitus with hemoglobin A1c goal of less than 8.0% (HCC) E11.9 Past Medical History: Diagnosis Date Closed trimalleolar fracture of right ankle 01/10/2024 Diverticulitis of colon DM type 2, goal A1c below 7 HTN, goal to be determined Hypothyroidism Stable angina (HCC) There were no vitals taken for this visit. Denise Brice PA-C 02/13/2024 Patient Active Problem List Diagnosis Hypothyroidism HTN, goal below 140/90 Type 2 diabetes mellitus with hemoglobin A1c goal of less than 8.0% (HCC) Moderate dementia with mood disturbance (HCC) Closed trimalleolar fracture of right ankle Iron deficiency anemia Cirrhosis of liver without ascites (HCC) Liver mass Gastroesophageal reflux disease Moderate persistent asthma without complication History of GI bleed No transfusions per cheondoism beliefs Chronic cough Implantable loop recorder present [...] SIGMOIDOSCOPY, DIAGNOSTIC 01/24/[address] Raygoza at [facility] to 45 cm TOTAL ABD HYSTERECTOMY W/WO [...] list as this cannot be edited in [employer]. Review of Systems: obtained from pt and staff Constitutional ROS: No change in weight, + weakness, +fatigue and No fevers, sweats, or chills Nose ROS: No nasal stuffiness and No significant epistaxis Mouth/Throat ROS: No thrush or No sore throat Neck ROS: No lumps or masses, No swollen glands, No recent swelling in thyroid area and No significant pain in neck Pulmonary ROS: see HPI Cardiovascular ROS: see HPI Gastrointestinal ROS: No abdominal pain, No change [...] the most recent facilities vitals. General: more fatigued and lethargic no distress, well nourished and well developed Head: Normocephalic, No masses, lesions, tenderness or abnormalities Eye Exam: Conjunctiva are pink and non-injected, sclera clear Nose: no mucosal erythema, no mucosal edema, no purulent discharge Oropharynx: no exudate, no erythema, lips, buccal mucosa, and tongue normal and mucous membranes are moist Neck: supple, no adenopathy, non-tender, neck veins flat, trachea midlin Heart: regular rate & rhythm, no murmurs and no gallops Lungs: normal respiratory rate and rhythm, no chest wall tenderness, lungs clear to auscultation Pulses: radial=2/4, posterior tibial=2/4 Abdomen: abdomen soft, non-tender, normal bowel sounds and no masses or organomegaly Extremities: 2+ RLE edema, tenderness to palpation right calf. No erythema or rubor no clubbing, nocyanosis Neuro Exam: alert & oriented x 2 with fluent speech, no focal motor/sensory deficits Skin: skin color, texture, turgor are normal, no rashes or significant lesions ASSESSMENT: Metabolic encephalopathy (Primary) Hyponatremia History of 2019 novel coronavirus disease (COVID-19) Closed trimalleolar fracture of right ankle with routine healing, subsequent encounter Pain and swelling of lower leg, right Moderate dementia with mood disturbance, unspecified dementia type (HCC) Cirrhosis of liver without ascites, unspecified hepatic cirrhosis type (HCC) Type 2 diabetes mellitus with hemoglobin A1c goal of less than 8.0% (HCC) PLAN: Pt with increased lethargy, malaise, severe hyponatremia now with RLE increased pain and swelling .Recent Covid 19 infection. Concern for DVT, PE Alf Home Treatment Given: Discussed with patient and phone call made to . Decision made to send pt to ED for further evaluation and Rx. Electronically signed by: Denise Brice PA-C Over [...] as of this encounter Visit Diagnoses Diagnosis Metabolic encephalopathy- Primary Hyponatremia Hyposmolality and/or hyponatremia History of 2019 novel coronavirus disease (COVID-19) Closed trimalleolar fracture of right ankle with routine healing, subsequent encounter Pain and swelling of lower leg, right Moderate dementia with mood disturbance, unspecified dementia type (HCC) Cirrhosis of liver without ascites, unspecified hepatic cirrhosis type (HCC) Type 2 diabetes mellitus with hemoglobin A1c goal of less than 8.0% (HCC) documented in this encounter
[2024-02-14 12:20] LABS: A calco-baum cmplx NotReported Not Detected (NotDetected); Bact fragilis Not Reported Not Detected (NotDetected); Blood Culture Id Panel PCR Panel Negative (NotDetected); C auris Not Reported Not Detected (NotDetected); Calbicans Not Reported Not Detected (NotDetected); Candida glabrata Not Reported Not Detected (NotDetected); Candida krusei Not Reported Not Detected (NotDetected); Cneoformans/gatti Not Reported Not Detected (NotDetected); Cparapsilosis Not Reported Not Detected (NotDetected); E cloacae compx Not Reported Not Detected (NotDetected); Efaecalis Not Reported Not Detected (NotDetected); Efaecium Not Reported Not Detected (NotDetected); Enterobacterales Not Reported Not Detected (NotDetected); Escherichia coli Not Reported Not Detected (NotDetected); H influenzae Not Reported Not Detected (NotDetected); K aerogenes Not Reported Not Detected (NotDetected); Koxytoca Not Reported Not Detected (NotDetected); Kpneumoniae grp Not Reported Not Detected (NotDetected); Lmonocyt Not Reported Not Detected (NotDetected); N meningitidis Not Reported Not Detected (NotDetected); P aeruginosa Not Reported Not Detected (NotDetected); Proteus spp Not Reported Not Detected (NotDetected); Salmonella spp Not Reported Not Detected (NotDetected); Staph lugdunensis Not Reported Not Detected (NotDetected); Staph spp. Not Reported Not Detected (NotDetected); Staphaureus Not Reported Not Detected (NotDetected); Staphepi Not Reported Not Detected (NotDetected); Stenmaltophilia Not Reported Not Detected (NotDetected); Strep agal(GrpB) Not Reported Not Detected (NotDetected); Strep pneum Not Reported Not Detected (NotDetected); Strep pyog (GrpA) Not Reported Not Detected (NotDetected); Strep spp Not Reported Not Detected (NotDetected)
[2024-02-14] MEDS: guaiFENesin SUGAR FREE 100 MG/5 ML UDC PO PRN (12:23)
[2024-02-14 13:00] LABS: Thyroid Stimulating Hormone 46.96 uIu/ml (0.300-4.500)
--- NOTE | 2024-02-14 13:36 | Hospitalist Progress Note ---
Date of Service February 14, 2024 Assessment & Plan (1) Hyponatremia: Plan: Pt arrived to ED for generalized weakness and fatigue; recent admission 01/17/24- 01/23/24 for hyponatremia. ED: Na 121; complains of continued fatigue and weakness. Received 30 cc/kg normal saline bolus in ED. magnesium was 1.6 at time of admission; mag sulfate/D5W 1 g provided. Mild resuscitation in the ED provided improvement in sodium levels. However, acidosis worsened and hyperkalemia presented. Sodium bicarb provided for acidotic state, Lokelma 10 g p.o and holding potassium supplement. - Na 121 on admission - Urine osmolality 187 and urine sodium 41; SIADH unlikely; findings consistent with solute depletion - Hold lasix for now - Trend BMP q4hr - PT/OT for weakness (2) COVID-19: Plan: Diagnosed with COVID-19 on 02/05/2024 at skilled nursing; unsure if provided with antivirals. Tested positive during admission 02/12. - Continues to have productive cough and white sputum. - Non-hypoxic and hemodynamically stable - CXR: No acute findings - Start Dexamethasone 6mg IV qd (3) Pain of right lower extremity: Plan: H/o R trimalleolar fx from last admission; was to be no WB x 6 weeks. Nonoperative - Continues to have RLE pain and associated calf-tenderness; sensation and circulation in tact - No D-dimer at this time given dx of COVID-19 and likely abnormal results - Venous doppler US RLE, no DVT Plan Type II DM- Goal 110-160 BSG, type II DM diet Anemia- H/o MERRY, [place] and cannot receive blood products. ED RBC 3.95, Hgb 10.9, Hct 31.5 Dementia- At baseline per , continue Donepezil Hypothyroidism- on Levothyroxine 75 mcg at home; repeat TSH 02/13 at 49.960; Increase levothyroxine to 100 mcg qAM. Repeat labs in 4-6 weeks. DVT prophylaxis: SCDs; History of hemorrhage while on pharmacpprophylaxis/LGI bleed Code: DNR/DNI Admission and Anticipated Discharge Date Admission Date: February 13, 2024 Supervising Physician Co-Signing Physician Notes Attending Attestation & Progress Note: Pt seen/examined, chart reviewed, care plan d/w SHAILA Patel. I agree w/ the howell components of her documentation with the following addition - * DVT proph - aspirin 81mg BID x 6 weeks dating back to the time of her R ankle fracture During my bedside visit she was coughing. c/o fatigue. Exam - gen - NAD, but coughing mouth - MMM neck - no JVD heart - RRR, s1 s2, no murmur lungs - b/l basilar rales - fine; no wheezes; no increased work of breathing abd - soft NT ND BS+ ext - right distal leg with mild edema, pulses 2+ b/l musculo - right ankle in splint A/P: 1. hyponatremia - improved; 121 at presentation, now 133; stop fluids, hold NaCl tablets, repeat BMP am. Decompensated hypothyroidism could be contributing to the hyponatremia in addition to poor PO intake pre-admission. 2. COVID-19 - no discrete pneumonia on imaging, but has b/l basilar rales - can't exclude lower respiratory tract involvement from COVID. Pt with severe cough, etc - start dex 6mg daily. Out of the window for anti-virals. Cont airborne isolation. 3. right ankle fracture. 4. decompensated hypothyroidism - increase synthroid to 100mcg daily; TSH in 6 weeks. other plans per Ms Jorge Hutchins MD Subjective Patient seen laying in bed at time of visit. , Nitin, is present in the room. Patient states that she is feeling much better compared to the day of admission. Her cough has decreased, although she did have an episode of a "co ughing fit" which caused her to feel as though she was fighting to catch her breath. However, there is no sputum production at this time. Denies shortness of breath, chest pain, abdominal pain, N/V/D/C. Patient does admit to having continued, aching pain in area of previous fracture at the RLE. No urinary symptoms. Review of Systems Constitutional: + fatigue; no fever, no chills, no sweat s, no weakness and no weight loss Eyes: no problem reported Ear, Nose, Mouth, Throat: + nasal congestion; no dizziness, no sin us pain/pressure and no sore throat Respiratory: + cough; no chest congestion, no hemopty sis and no sputum production Cardiovascular: no chest pain, no palpitations, no lightheadedness, no syncope and no edema Gastrointestinal: no abdominal pain, no nausea and no vomiting Genitourinary: no dysuria and no hematuria Musculoskeletal: as per Subjective / HPI Neurologic: no falls, no generalized weakness, no numbness, no dizziness and no headache(s) Physical Exam Physical Exam: , Nitin, present at time of exam. Eyes: PERRL, conjunctivae normal, anicteric sclerae Respiratory: normal respiratory effort; no cough and no audible wheezes Auscultation: + crackles (BLL) Cardiovascular: RRR, no murmur, no edema Gastrointestinal (Abdomen): Inspection/Auscultation: abdomen normal to inspection and normal bowel sounds Percussion/Palpation: no guarding and no dullness to percussion (RUQ) Skin: Lower back/top of buttock covered with butterfly dressing. Psychiatric: Orientation: alert and oriented to person Lymphatic: + cervical lymphadenopathy (R side) Results & Data Results & Data Vital Signs (Past 12 Hours) Vital Signs Temp Pulse Resp BP Pulse Ox O2 Del Method 02/14/24 08:21 36.5 C 67 16 148/68 H 96 Room Air 02/14/24 08:00 Room Air Laboratory Results CBC: RBC 3.64, hemoglobin 9.9, hematocrit 29.4 Chemistry: Sodium 133, potassium 4.6, AG 6, Cr 0.81 Lactate 2.3 TSH 46.96 Diagnostic Findings Venous Doppler Study 02/13/24 18:06 Exam(s): US VENOUS RIGHT LOWER EXTREMITY EXAM: US Duplex Right Lower Extremity Veins CLINICAL HISTORY: Reason for exam: Calf tenderness, s/p fracture. TECHNIQUE: Real-time duplex ultrasound scan of the right lower extremity veins integrating B-mode two-dimensional vascular structure, Doppler spectral analysis, color flow Doppler imaging and compression. COMPARISON: No relevant prior studies available. FINDINGS: Deep veins: Unremarkable. No DVT in the visualized common femoral, femoral, proximal deep femoral or popliteal veins. The veins demonstrate normal color flow, are normally compressible, with normal phasic flow and/or augmentation response. Superficial veins: Unremarkable. No thrombus in the visualized great saphenous vein. Soft tissues: No acute findings. IMPRESSION: No evidence of acute DVT. Electronically signed by: Josi Huynh M.D. 02/13/24 21:17 PM PG Care Time/CCT Total # of Minutes Spent Total Time Spent with Patient: Total time spent is greater than 50% in coordination of care (as documented) at patient's floor/unit and/or counseling patient: Coding Level of Care Code None Diagnoses Hyponatremia E87.1 COVID-19 U07.1 Pain of right lower extremity M79.604
[2024-02-14] MEDS: dexAMETHasone 6 MG in SYRINGE 0 ML IV SCH (15:09)
--- NOTE | 2024-02-15 00:02 | Billing Data ---
Date of Service February 14, 2024 Coding Level of Care Code 89192 SUB INP/OBS CARE MIN
[2024-02-15] MEDS: LEVOTHYROXINE SODIUM 100 MCG TABLET PO SCH (06:18)
[2024-02-15 10:55] LABS: Calcium 8.7 mg/dl (8.6-10.3); Potassium 4.1 mmol/L (3.5-5.1)
[2024-02-15 11:01] LABS: Creatinine Clr Calc Pharmacy 55.5 ml/min; Est GFR (African American) 78.9 ml/min; Est GFR (Non-African American) 68.1 ml/min
--- NOTE | 2024-02-15 12:08 | Hospitalist Progress Note ---
Date of Service February 15, 2024 Assessment & Plan (1) Hyponatremia: Plan: Pt arrived to ED for generalized weakness and fatigue; recent admission 01/17/24- 01/23/24 for hyponatremia. ED: Na 121; complains of continued fatigue and weakness. Received 30 cc/kg normal saline bolus in ED. magnesium was 1.6 at time of admission; mag sulfate/D5W 1 g provided. Mild resuscitation in the ED provided improvement in sodium levels. However, acidosis worsened and hyperkalemia presented. Sodium bicarb provided for acidotic state, Lokelma 10 g p.o and holding potassium supplement. - Na 121 on admission, 131 today. - Urine osmolality 187 and urine sodium 41; SIADH unlikely; findings consistent with solute depletion - Hold lasix for now - Fluids stopped and NaCl tablets held - Trend BMP daily - PT/OT for weakness (2) COVID-19: Plan: Diagnosed with COVID-19 on 02/05/2024 at [facility]; unsure if provided with antivirals. Tested positive during admission 02/12. - Continues to have productive cough, however white sputum production is decreased. - Non-hypoxic and hemodynamically stable - CXR: No acute findings - Continue dexamethasone 6mg IV qd - CDC guidelines state patient no longer requires isolation secondary to COVID- 19 diagnosis. Patient to be removed from isolation precautions. (3) Pain of right lower extremity: Plan: H/o R trimalleolar fx from last admission; was to be no WB x 6 weeks. Nonoperative - Continues to have RLE pain and associated calf-tenderness; sensation and circulation in tact - No D-dimer at this time given dx of COVID-19 and likely abnormal results - Venous doppler US RLE, no DVT - Patient and requesting that machine precision etcher Dr. Juan Jose Acosta evaluates the patient while in the hospital. I will contact Dr. Acosta regarding this request. - X-ray R ankle, pending official read. Appreciate podiatry input. (4) Fibula fracture: Plan: right Plan Type II DM- Goal 110-160 BSG, type II DM diet Anemia- H/o MERRY, [employer] and cannot receive blood products. ED RBC 3.95, Hgb 10.9, Hct 31.5 Dementia- At baseline per , continue Donepezil Hypothyroidism- on Levothyroxine 75 mcg at home; repeat TSH 02/13 at 49.960; Increased levothyroxine to 100 mcg qAM. Repeat labs in 4-6 weeks. DVT prophylaxis: SCDs; History of hemorrhage while on pharmacpprophylaxis/LGI bleed; has been taking aspirin 81 mg Code: DNR/DNI Dispo: Pending clinical improvement of symptoms, will be discharged back to [facility]. Admission and Anticipated Discharge Date Admission Date: February 13, 2024 Supervising Physician Co-Signing Physician Notes Attending Attestation & Progress Note: Pt seen/examined, chart reviewed, care plan d/w SHAILA Patel. I agree w/ the howell components of her documentation. Pt in good spirits. States cough is improved. With that said she had a coughing fit while I was leaving the room. Eating fair. I updated her on the status of her right ankle fracture. Still non weightbearing recommended by podiatry 2nd to nonunion. Exam - gen - NAD, looks better today mouth - MMM neck - no JVD heart - RRR, s1 s2, no murmur lungs - b/l basilar rales - fine; hint of end-exp wheezes; no increased work of breathing abd - soft NT ND BS+ ext - right distal leg with trace edema, pulses 2+ b/l musculo - right ankle in JOSE wrap A/P: 1. hyponatremia - improved; 121 at presentation, now 131; stop fluids, hold NaCl tablets, repeat BMP am. Decompensated hypothyroidism could be contributing to the hyponatremia in addition to poor PO intake pre-admission. 2. COVID-19 - no discrete pneumonia on imaging, but has ongoing b/l basilar rales and wheeze - can't exclude lower respiratory tract involvement from COVID. Pt with severe cough, etc - cont dex 6mg daily - day #2 of such. Out of the window for anti-virals. Cont airborne isolation. Add mucinex, tessalon, and albuterol for symptoms. 3. right ankle fracture. Nonunion. Appreciate podiatry consult by Dr Acosta. Plan - bone stimulator device to be ordered. 25-OH vit D was 99 (!) in 05/2023. 4. decompensated hypothyroidism - increased synthroid to 100mcg daily; TSH in 6 weeks as outpatient. other plans per Ms Patel [facility] Edvin Hutchins MD Subjective Patient seen lying in bed at time of visit. , Nitin, is present. Patient states that her symptoms have improved since admission. Continues to experience cough, but sputum production has decreased. Admits to continued fatigue. She does continue to experience mild pain in RLE. Has been the patient have requested that the patient's machine precision etcher evaluates the patient's previous fracture. Review of Systems Constitutional: + fatigue; no fever, no chills, no sweat s, no weakness and no weight loss Eyes: no problem reported Ear, Nose, Mouth, Throat: no dizziness, no nasal congestion, no sinus pain/pressure and no sore throat Respiratory: + cough; no hemoptysis and no sputum pro duction Cardiovascular: no chest pain, no palpitations, no lightheadedness, no syncope and no edema Gastrointestinal: no abdominal pain, no nausea and no vomiting Genitourinary: no dysuria and no hematuria Musculoskeletal: as per Subjective / HPI Neurologic: no falls, no generalized weakness, no numbness, no dizziness and no headache(s) Physical Exam Physical Exam: , Nitin, present at time of exam. Respiratory: normal respiratory effort; no cough and no audible wheezes Auscultation: + crackles (BLL) Cardiovascular: RRR, no murmur, no edema Gastrointestinal (Abdomen): Inspection/Auscultation: abdomen normal to inspection and normal bowel sounds Percussion/Palpation: no guarding and no dullness to percussion (RUQ) Musculoskeletal: Right ankle and foot in Jose wrap. Psychiatric: Orientation: alert and oriented to person Results & Data Results & Data Vital Signs (Past 12 Hours) Vital Signs Temp Pulse Resp BP Pulse Ox O2 Del Method 02/15/24 09:30 63 20 119/63 98 Room Air 02/15/24 08:27 36.7 C 62 17 146/73 H 96 Room Air PG Care Time/CCT Total # of Minutes Spent Total Time Spent with Patient: Total time spent is greater than 50% in coordination of care (as documented) at patient's floor/unit and/or counseling patient: Coding Level of Care Code None Diagnoses Hyponatremia E87.1 COVID-19 U07.1 Pain of right lower extremity M79.604 Closed nondisplaced fracture of lateral malleolus of right fibula with delayed healing, subsequent encounter S82.64XG Encounter type: subsequent encounter Fibula location: lateral malleolus Fracture type: closed Fracture alignment: nondisplaced Laterality: right Fracture healing: with delayed healing (4) Fibula fracture Encounter type: subsequent encounter Fibula location: lateral malleolus Fracture type: closed Fracture alignment: nondisplaced Laterality: right Fracture healing: with delayed healing Qualified Code(s): S82.64XG - Nondisplaced fracture of lateral malleolus of right fibula, subsequent encounter for closed fracture with delayed healing
--- NOTE | 2024-02-15 15:38 | Podiatry Consultation ---
Date of Consultation February 15, 2024 Assessment & Plan (1) Pain of right lower extremity: (2) Fibula fracture: Encounter type: subsequent encounter Fibula location: lateral malleolus Fracture type: closed Fracture alignment: nondisplaced Laterality: right Fracture healing: with delayed healing Qualified Code(s): S82.64XG - Nondisplaced fracture of lateral malleolus of right fibula, subsequent encounter for closed fracture with delayed healing (3) Ankle pain, right: Chronicity: acute Qualified Code(s): M25.571 - Pain in right ankle and joints of right foot Plan No evidence of bone healing after two months. Not technically a non-union, timing rivera, but there is also no suggestion that the fracture healing has progressed. Would benefit from non-invasive bone stimulator for developing atrophic nonuion. Will try to order here while inpatient, but can also arrange on an outpatient basis. Should still, unfortunately, remain NWB with this unstable ankle fracture. Will follow up with patient tomorrow. History of Present Illness Reason for Consultation: Ankle fracture healing Attending Physician: Edvin Hutchins MD History of Present Illness Pt not in room; finishing up in CT. Scan completed, but no report just yet. Chart reviewed. Admitted with worsening fatigue, generalized weakness, and recent COVID infection. Now improving, but curious about progression of prior right ankle fracture sustained at the end of November. Has been NWB in boot, in inpatient rehab but discharged to home with family care. No new concerns otherwise. Allergies Allergy/AdvReac Type Severity Reaction Status Date / Time bee venom protein (honey bee) Allergy Severe SWELLS UP Verified 02/13/24 16:04 cefazolin Allergy Severe SHORTNESS Verified 02/13/24 16:04 OF BREATH adhesive Allergy Intermediate HIVES WITH Verified 02/13/24 16:04 TAPE azithromycin Allergy Unknown CAN'T Verified 02/13/24 16:04 REMEMBER candesartan AdvReac Intermediate cough Verified 02/13/24 16:04 enalapril AdvReac Intermediate cough Verified 02/13/24 16:04 lisinopril AdvReac Intermediate COUGH Verified 02/13/24 16:04 morphine AdvReac Intermediate ABNORMAL Verified 02/13/24 16:04 DREAMS/PASSED OUT nitroglycerin AdvReac Intermediate GI SYMPTOMS Verified 12/26/23 19:38 Home Medications Medication Instructions Recorded Confirmed Type magnesium oxide 400 mg (241.3 mg 400 mg PO TID #90 tabs 12/30/22 02/13/24 Rx magnesium) tablet escitalopram oxalate 20 mg tablet 20 mg PO QAM #90 tabs 05/24/23 02/13/24 Rx pantoprazole 40 mg tablet,delayed 40 mg PO BID #60 tabs 11/03/23 02/13/24 Rx release (Protonix) metformin 500 mg tablet 500 mg PO BID #60 tabs 11/22/23 02/13/24 Rx blood-glucose meter (OneTouch #1 ea 12/05/23 12/11/23 Rx Ultra2 Meter) blood sugar diagnostic (OneTouch #100 ea 12/11/23 12/11/23 Rx Verio test strips) lancets 33 gauge #100 ea 12/11/23 12/11/23 Rx acetaminophen 325 mg tablet 650 mg PO BID 02/13/24 02/13/24 History (Tylenol) acetaminophen 325 mg tablet 650 mg PO Q4H PRN Pain/Fever 02/13/24 02/13/24 History (Tylenol) albuterol sulfate 90 mcg/actuation 2 inh inhalation Q6H PRN cough 02/13/24 02/13/24 History breath activated powder inhaler,sensor (Proair Digihaler) amlodipine 5 mg tablet 5 mg PO QAM 02/13/24 02/13/24 History aspirin 81 mg tablet,delayed 81 mg PO BID 02/13/24 02/13/24 History release atorvastatin 10 mg tablet 10 mg PO QAM 02/13/24 02/13/24 History benzonatate 100 mg capsule 100 mg PO TID PRN Cough 02/13/24 02/13/24 History bisacodyl 10 mg rectal suppository 10 mg NH DAILY PRN Constipation 02/13/24 02/13/24 History cetirizine 5 mg tablet 5 mg PO QAM 02/13/24 02/13/24 History clotrimazole 1 % topical cream 1 applic topical BID Perineum Rash 02/13/24 02/13/24 History cyanocobalamin (vitamin B-12) 1,000 mcg PO QPM 02/13/24 02/13/24 History 1,000 mcg tablet (Vitamin B-12) dextrose 40 % oral gel (Glucose See Rx Instructions .Route 02/13/24 02/13/24 History Gel) .COMPLEX PRN Hypoglycemia dextrose 50 % in water (D50W) See Rx Instructions .Route .COMPLEX 02/13/24 02/13/24 History donepezil 5 mg tablet 5 mg PO QAM 02/13/24 02/13/24 History food supplemt, lactose-reduced 1 ea PO BID 02/13/24 02/13/24 History furosemide 20 mg tablet (Lasix) 20 mg PO QAM 02/13/24 02/13/24 History glucagon HCl 1 mg solution for See Rx Instructions .Route 02/13/24 02/13/24 History injection (Glucagon (HCl) .COMPLEX PRN Hypoglycemia Emergency Kit) glycopyrrolate 1 mg tablet 1 mg PO HS 02/13/24 02/13/24 History (Robinul) guaifenesin 100 mg/5 mL oral 200 mg PO Q4H PRN Cough 02/13/24 02/13/24 History liquid (Tussin) ipratropium 0.5 mg-albuterol 3 mg 3 ml inhalation QID 02/13/24 02/13/24 History (2.5 mg base)/3 mL nebulization soln ipratropium bromide 21 mcg (0.03 2 spray intranasal BID Chronic 02/13/24 02/13/24 History %) nasal spray Cough levothyroxine 75 mcg tablet 75 mcg PO DAILYBB 02/13/24 02/13/24 History magnesium hydroxide 400 mg/5 mL 2,400 mg PO DAILY PRN Constipation 02/13/24 02/13/24 History oral suspension (Milk of Magnesia) multivitamin with folic acid 400 1 tab PO QAM 02/13/24 02/13/24 History mcg tablet (High Potency Multivitamin) ondansetron HCl 4 mg tablet 4 mg PO Q6H PRN Nausea And Vomiting 02/13/24 02/13/24 History potassium chloride 10 mEq 10 meq PO QAM 02/13/24 02/13/24 History tablet,extended release prednisone 10 mg tablet See Rx Instructions .Route .COMPLEX 02/13/24 02/13/24 History saliva substitute combo no.9 5 ml PO QID 02/13/24 02/13/24 History (Biotene Dry Mouth Oral Rinse mouthwash) sennosides 8.6 mg-docusate sodium 1 tab-cap PO BID 02/13/24 02/13/24 History 50 mg tablet (Stimulant Laxative Plus) sodium chloride 1,000 mg soluble 1,000 mg PO BID 02/13/24 02/13/24 History tablet sodium phosphates 19 gram-7 118 ml NH DAILY PRN Constipation 02/13/24 02/13/24 History gram/118 mL enema (Fleet Enema) white petrolatum (Petroleum Jelly 1 applic topical DAILY PRN 02/13/24 02/13/24 History topical) irritation Patient History Medical History Hyponatremia Acute kidney injury Refusal of blood transfusions as patient is Rastafari Hyperlipidemia Vitamin D deficiency Falls frequently Syncope, vasovagal Seasonal allergies mild Implantable loop recorder present follows w/ Dr Milian last visit 02/2022 Acute upper GI bleed Nausea and vomiting after administration of anesthetic agent Surgical History History of esophagogastroduodenoscopy (EGD) Hx of colonoscopy Status post total hip replacement, 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) S/P total hysterectomy and bilateral salpingo-oophorectomy S/P tonsillectomy S/P cholecystectomy S/P appendectomy Family History Father Hypertension Myocardial infarction Diabetes Coronary heart disease Sister Coronary heart disease Mother Diabetes Myocardial infarction Coronary heart disease Hypertension Denies family history of Ovarian cancer Prostate cancer Breast cancer Colorectal cancer Social History Smoking Status: Never smoker Second Hand Exposure: No; Do You Dip or Chew Tobacco: No; Tobacco Cessation Education Requested by Patient: No Hx Alcohol Use: No Hx Substance Use: No Preferred Language: Czech Communication Ability: Effective Visual Impairment: Limited Hearing Ability: Normal Decontamination Worker Required: No Beliefs That Will Affect Care: None marital status: Current Living Situation: Long-Term Current Living Situation Comment: From [place] current occupational status: retired Feels Safe at Home: Yes Safety Concerns: Feels Safe At This Time Childhood Exposure to Second-Hand Smoke: No Diet: regular Diet Comment: regular caffeine: No during the past year weight has: remained stable Dental Care, Regularly: Yes Physical Activity Frequency: 1-2 Times per Week Seatbelt Use: always Sunscreen Use: Yes Assistive Devices: Walker Review of Systems Review of Systems: All systems reviewed & are unremarkable except as noted in HPI & below Constitutional: no fever, no chills and no fatigue Eyes: no problem reported Ear, Nose, Mouth, Throat: no problem reported Respiratory: no problem reported Cardiovascular: + edema; no problem reported Gastrointestinal: no nausea, no vomiting and no problem reported Genitourinary: no problem reported Musculoskeletal: no problem reported Integumentary: no skin ulcer, no wounds and no erythema Neurologic: + paresthesia; no generalized weakness, no loss of sensation and no numbness Psychiatric: no problem reported Physical Exam Physical Exam: Right lower extremity focused exam: Pinpoint pain is noted on palpation of the lateral aspect of the fibula. There is no pain on range of motion of the ankle. No ascending cellulitis noted. Pulses are not palpable. No crepitus on range of motion is noted. No angular deformities are appreciated and no shortening of the fibula is noted clinically. Radiographs reveal no displacement of any fracture though are suggestive of a nondisplaced fibular fracture with a cortical irregularity noted, worse or widened than on prior imaging. Now widening of the medial gutter is noted on the AP view. No obvious bone callus formation noted. CT ordered, report pending, though no significant evidence of bone healing is appreciated. The fracture remains minimally displaced but without significant healing. No widening of the syndesmosis. Distally, the medial gutter is slightly widened with no further suggestion of medial injury. Constitutional: WD/WN, vitals as above Eyes: PERRL, conjunctivae normal, anicteric sclerae ENMT: external ear and nose normal, oropharynx normal Neck: trachea midline, no thyromegaly normal visual inspection Respiratory: normal respiratory effort; no respiratory distress Cardiovascular: Rate/Rhythm: regular rate and regular rhythm Chest (Breasts): Chest: normal inspection of chest Gastrointestinal (Abdomen): Inspection/Auscultation: abdomen normal to inspection Percussion/Palpation: + abdomen tender and abdomen soft Musculoskeletal: no cyanosis or clubbing, extremities motor strength 5/5 Head/Neck/Chest: normocephalic and head atraumatic Extremities: extremities normal to inspection Ankle: + ecchymosis and + limited ROM of ankle; no deformity Neurologic: awake; no focal motor deficits Psychiatric: A+Ox3, euthymic affect Results & Data Vital Signs (Past 12 Hours) Vital Signs Temp Pulse Resp BP Pulse Ox O2 Del Method 02/15/24 14:57 36.7 C 64 16 118/68 94 Room Air 02/15/24 09:30 63 20 119/63 98 Room Air 02/15/24 08:27 36.7 C 62 17 146/73 H 96 Room Air 02/15/24 07:25 Room Air
--- NOTE | 2024-02-15 15:56 | CT Scan Report ---
CT ankle RT wo con CLINICAL HISTORY: Widening of medial gutter on XR. Nonunion? TECHNIQUE: Multidetector row helical CT of the right ankle was performed without intravenous contrast . Coronal and sagittal reformations were obtained. Automated dose lowering techniques and/or adjustme nt according to patient size were utilized for this examination. CT DOSE: 394.98 mGy.cm Comparison: Comparison is made to right ankle CT 12/28/2023 and right ankle radiographs 02/15/2024 FINDINGS: Comminuted fracture of the distal fibula is again seen. Interval healing changes are seen in the frac tures of the medial and posterior malleoli. Joint spaces are maintained in particular there is no wid ening of the ankle mortise. No joint effusion is seen. The soft tissues are unremarkable. IMPRESSION: Expected healing changes of trimalleolar fracture. No widening of the ankle mortise. ACT 112: Negative or not required by law. Electronically signed by: Shelton Goins M.D. 02/15/2024 3:54 PM
--- NOTE | 2024-02-15 16:27 | XRay Report ---
XR ankle RT min 3V routine CLINICAL HISTORY: Previous fx, status of healing TECHNIQUE: 3 views of the right ankle were obtained. Comparison: Comparison is made to radiograph 12/26/2023 FINDINGS: Interval healing changes of previously noted trimalleolar fracture. There is prominence of the medial clear space measuring up to 5 mm. Soft tissue swelling is seen about the ankle. IMPRESSION: Interval healing changes are seen. The medial clear space is prominent measuring up to 5 mm, although correlation to CT performed today demonstrates of this is artifactual. No widening of the ankle mort ise is seen. ACT 112: Negative or not required by law. Electronically signed by: Shelton Goins M.D. 02/15/2024 4:26 PM
--- NOTE | 2024-02-15 21:14 | Billing Data ---
Date of Service February 15, 2024 Coding Level of Care Code 19145 SUB INP/OBS CARE
--- NOTE | 2024-02-15 22:16 | Electrocardiogram Report ---
Test Reason : Blood Pressure : */* mmHG Vent. Rate : 87 BPM Atrial Rate : 87 BPM P-R Int : 176 ms QRS Dur : 82 ms QT Int : 356 ms P-R-T Axes : 15 -4 57 degrees QTcB Int : 428 ms Sinus rhythm with Premature atrial complexes Poor R wave progression, consider anterior OH vs. lead placement vs. LVH Abnormal ECG When compared with ECG of 27-Dec-2023 02:40, No significant change was found Confirmed by Kael Lo ([id number]) on 02/15/2024 10:15:52 PM Referred By: Confirmed By: Kael Lo
[2024-02-15] MEDS: BENZONATATE 100 MG CAPSULE PO SCH (22:31)
[2024-02-15] MEDS: guaiFENesin 600 MG TABCR PO SCH (22:31)
[2024-02-15] MEDS: ALBUTEROL HFA 8 GM INHALER INH SCH (23:50)
[2024-02-16 07:24] LABS: Hematocrit (blood only) 28.1 % (37.0-47.0); Hemoglobin 9.2 g/dl (12.0-16.0); Mean Corpuscular Hemoglobin 26.8 pg (25.0-34.0); Mean Corpuscular Hgb Conc 32.7 g/dL (32.0-36.0); Mean Corpuscular Volume 81.9 fL (80.0-100.0); Mean Platelet Volume 9.2 fL (9.4-12.4); Platelet Count 237 K/uL (130-400); RDW Coefficient of Variation 18.1 % (11.5-14.5); RDW Standard Deviation 53.9 fL (36.4-46.3); Red Blood Count 3.43 M/uL (4.20-5.40); White Blood Count 5.69 K/ul (4.8-10.8)
[2024-02-16 09:12] LABS: BUN Creatinine Ratio 16.3 (10-20); Calcium 8.4 mg/dl (8.6-10.3); Creatinine Clr Calc Pharmacy 56.2 ml/min; Est GFR (African American) 80.1 ml/min; Est GFR (Non-African American) 69.1 ml/min; Potassium 3.9 mmol/L (3.5-5.1)
--- NOTE | 2024-02-16 14:45 | Podiatry Progress Note ---
Date of Service February 16, 2024 Assessment & Plan (1) Pain of right lower extremity: (2) Fibula fracture: (3) Ankle pain, right: Plan patient was examined and evaluated. We discussed that she can likely be discharged once she is stabilized here back to when to [facility] in [place]. From there, if she is able to continue with aggressive physical therapy, she can likely be discharged home with weightbearing as tolerated in the surgical boot. She should still remain weightbearing in the boot and avoid significant ambulation without it. The fracture is healing but not healed currently. We discussed that she is still an increased risk of refracturing or reinjuring this if she sustains any falls while out of the boot. Because of this, she should only be discharged home once physical therapy is satisfied with her progression. For now, will plan on following up with her one month after her discharge from this hospitalization. Admission and Anticipated Discharge Date Admission Date: February 13, 2024 Subjective patient seen at bedside. She denies any new concerns at this point but has been hospitalized with weakness and fatigue. Over the last couple days she states she has improved overall. Her are concerned about when she can be discharged home from both the hospital and from her living facility in [place]. She has been nonweightbearing since her last hospitalization with the ankle fracture. She has occasionally worked with physical therapy for this. Review of Systems Review of Systems: All systems reviewed & are unremarkable except as noted in HPI & below Constitutional: no fever, no chills and no fatigue Eyes: no problem reported Ear, Nose, Mouth, Throat: no problem reported Respiratory: no problem reported Cardiovascular: + edema; no problem reported Gastrointestinal: no nausea, no vomiting and no problem reported Genitourinary: no problem reported Musculoskeletal: no problem reported Integumentary: no skin ulcer, no wounds and no erythema Neurologic: + paresthesia; no generalized weakness, no loss of sensation and no numbness Psychiatric: no problem reported Physical Exam Physical Exam: CT reveals expected healing with no widening of the mortise or medial and lateral gutters. No new fractures or dislocations identified. Pain is improved on palpation and range of motion of the ankle although still present. Diffuse weakness is noted throughout the lower extremity bilaterally. No new contractures appreciated. Constitutional: WD/WN, vitals as above Eyes: PERRL, conjunctivae normal, anicteric sclerae ENMT: external ear and nose normal, oropharynx normal Neck: trachea midline, no thyromegaly normal visual inspection Respiratory: normal respiratory effort; no respiratory distress Cardiovascular: Rate/Rhythm: regular rate and regular rhythm Chest (Breasts): Chest: normal inspection of chest Gastrointestinal (Abdomen): Inspection/Auscultation: abdomen normal to inspection Percussion/Palpation: + abdomen tender and abdomen soft Musculoskeletal: no cyanosis or clubbing, extremities motor strength 5/5 Head/Neck/Chest: normocephalic and head atraumatic Extremities: extremities normal to inspection Ankle: + ecchymosis and + limited ROM of ankle; no deformity Neurologic: awake; no focal motor deficits Psychiatric: A+Ox3, euthymic affect Results & Data Results & Data Vital Signs (Past 12 Hours) Vital Signs Temp Pulse Resp BP Pulse Ox O2 Del Method 02/16/24 14:35 36.6 C 76 16 137/76 96 Room Air 02/16/24 11:28 57 L 16 96 Room Air 02/16/24 07:40 Room Air 02/16/24 07:02 36.6 C 52 L 16 141/62 H 97 Room Air (2) Fibula fracture Encounter type: subsequent encounter Fibula location: lateral malleolus Fracture type: closed Fracture alignment: nondisplaced Laterality: right Fracture healing: with delayed healing Qualified Code(s): S82.64XG - Nondisplaced fracture of lateral malleolus of right fibula, subsequent encounter for closed fracture with delayed healing (3) Ankle pain, right Chronicity: acute Qualified Code(s): M25.571 - Pain in right ankle and joints of right foot
--- NOTE | 2024-02-16 20:19 | Hospitalist Progress Note ---
Date of Service February 16, 2024 Assessment & Plan (1) Hyponatremia: Plan: acute on chronic presenting Na 121 132 today corrected with saline Urine osmolality 187 and urine sodium 41 -- NOT c/w SIADH fluids, diuretics, salt tabs stopped or on hold repeat BMP 48 hours (2) COVID-19: Plan: Diagnosed with COVID-19 on 02/05/2024 at residential Although CXR has been negative for pneumonia she has had dense rales in the bases on examination Thus, using dexamethasone daily to treat for COVID-induced bronchitis (vs mild pneumonia that simply could not be seen on imaging) Was out of the window period for use of anti-virals thus Remdesivir deferred Cont dex 6mg daily but change to PO form Cont mucinex, albuterol, tessalon Cont incentive spirometer (3) Fibula fracture: Plan: right tri-malleolar ankle fracture appreciate consultation by Dr Acosta x-rays and CT findings noted poor healing thus, cont non weight-bearing status will need a bone stimulator device per Dr Acosta most recent 25-OH vit D level was quite robust in the Plan Type 2 DM - controlled Anemia - mild; 2nd to Fe deficiency; ferritin <10 in November 2023 Patient practices [employer] thus cannot receive blood products H/H acceptable at this time Consider IV venofer if permissible with her mormon Otherwise resume ferous sulfate daily by mouth Dementia - At baseline per , continue Donepezil Hypothyroidism- on Levothyroxine 75 mcg at home; repeat TSH 02/13 at 49.960; Increased levothyroxine to 100 mcg qAM. Repeat labs in 4-6 weeks. DVT prophylaxis: asa 81mg BID GI Prophylaxis: protonix 40mg BID [facility] but will need auth, thus patient will be here until next week updated pt's by phone this evening Admission and Anticipated Discharge Date Admission Date: February 13, 2024 Subjective no events eating fair c/o mild right ankle pain cough improved does not remember me from prior visits does ask when she is leaving Review of Systems Review of Systems: cv - no chest pain pulm - no dyspnea GI - no pain Physical Exam Physical Exam: gen - NAD, laying in bed comfortably neck - no JVD mouth - MMM heart - RRR s1 s2 lungs - minimal rales bases, otherwise CTA b/l with good airation today; no wheezes; no increased work of breathing abd - soft NT ND BS+ ext - right ankle/foot wrapped in ANDRES wrap; pulses b/l feet 2+ psych - oriented to person only Results & Data Results & Data Vital Signs (Past 12 Hours) Vital Signs Temp Pulse Resp BP Pulse Ox O2 Del Method 02/16/24 20:00 36.5 C 63 16 120/63 96 Room Air 02/16/24 19:36 73 18 97 02/16/24 15:24 73 16 97 Room Air 02/16/24 14:35 36.6 C 76 16 137/76 96 Room Air 02/16/24 11:28 57 L 16 96 Room Air Laboratory Results Laboratory Results - last 24 hr 02/16/24 02/16/24 06:54 06:57 WBC 5.69 RBC 3.43 L Hgb 9.2 L Hct 28.1 L MCV 81.9 MCH 26.8 MCHC 32.7 RDW Std Deviation 53.9 H RDW Coeff of [place] 18.1 H Plt Count 237 MPV 9.2 L Sodium 132 L Potassium 3.9 Chloride 98 Carbon Dioxide 26 Anion Gap 8 BUN 13 Creatinine 0.80 Est Cr Clr Drug Dosing 56.2 Est GFR ( Amer) 80.1 Est GFR (Non-Af Amer) 69.1 BUN/Creatinine Ratio 16.3 Glucose 122 H Lactate 1.3 Calcium 8.4 L PG Care Time/CCT Total # of Minutes Spent Total Time Spent with Patient: Total time spent is greater than 50% in coordination of care (as documented) at patient's floor/unit and/or counseling patient: Coding Level of Care Code 15879 SUB INP/OBS CARE 2/35MIN Diagnoses Hyponatremia E87.1 COVID-19 U07.1 Closed nondisplaced fracture of lateral malleolus of right fibula with delayed healing, subsequent encounter S82.64XG Encounter type: subsequent encounter Fibula location: lateral malleolus Fracture alignment: nondisplaced Fracture healing: with delayed healing Fracture type: closed Laterality: right (3) Fibula fracture Encounter type: subsequent encounter Fibula location: lateral malleolus Fracture alignment: nondisplaced Fracture healing: with delayed healing Fracture type: closed Laterality: right Qualified Code(s): S82.64XG - Nondisplaced fracture of lateral malleolus of right fibula, subsequent encounter for closed fracture with delayed healing
[2024-02-17 06:53] LABS: Hematocrit (blood only) 26.7 % (37.0-47.0); Hemoglobin 8.9 g/dl (12.0-16.0); Mean Corpuscular Hemoglobin 27.4 pg (25.0-34.0); Mean Corpuscular Hgb Conc 33.3 g/dL (32.0-36.0); Mean Corpuscular Volume 82.2 fL (80.0-100.0); Mean Platelet Volume 9.4 fL (9.4-12.4); Platelet Count 228 K/uL (130-400); RDW Coefficient of Variation 17.9 % (11.5-14.5); RDW Standard Deviation 53.6 fL (36.4-46.3); Red Blood Count 3.25 M/uL (4.20-5.40); White Blood Count 5.77 K/ul (4.8-10.8)
[2024-02-17] MEDS: dexAMETHasone 4 MG TAB PO SCH (08:16)
[2024-02-17 10:45] LABS: BUN Creatinine Ratio 16.9 (10-20); Calcium 8.5 mg/dl (8.6-10.3); Creatinine Clr Calc Pharmacy 54.2 ml/min; Est GFR (African American) 76.6 ml/min; Est GFR (Non-African American) 66.1 ml/min
[2024-02-17] MEDS: bisacodyL 10 MG SUPP PR STA (14:44)
--- NOTE | 2024-02-17 18:56 | Hospitalist Progress Note ---
Date of Service February 17, 2024 Assessment & Plan (1) Hyponatremia: Plan: acute on chronic presenting Na 121 131 today corrected with saline Urine osmolality 187 and urine sodium 41 -- NOT c/w SIADH fluids, diuretics, salt tabs stopped or on hold repeat BMP 48 hours for stability (2) COVID-19: Plan: Diagnosed with COVID-19 on 02/05/2024 at senior care Although CXR was negative for pneumonia she has had dense rales in the bases on examination Thus, using dexamethasone daily to treat for COVID-induced bronchitis (vs mild pneumonia that simply could not be seen on imaging) Was out of the window period for use of anti-virals thus Remdesivir deferred Cont dex 6mg today, then wean to 4mg/day in the next 48 hours Cont mucinex, albuterol, tessalon Cont incentive spirometer (3) Fibula fracture: Plan: right tri-malleolar ankle fracture appreciate consultation by Dr Acosta x-rays and CT findings noted poor healing thus, cont non weight-bearing status will need a bone stimulator device per Dr Acosta most recent 25-OH vit D level was quite robust in the 90s (4) Right-sided chest wall pain: Plan: suspect musculoskeletal pain from coughing CTA chest earlier in the stay negative for PE try voltaren gel 4 grams qid Plan Type 2 DM - controlled Constipation - IMPROVED; cont senna/colace for maintenance; add miralax for maintenance as well Anemia - mild; 2nd to Fe deficiency; ferritin <10 in November 2023 Patient practices [employer] thus cannot receive blood products H/H acceptable at this time Consider IV venofer if permissible with her christianity Otherwise resume ferous sulfate daily by mouth Dementia - At baseline per , continue Donepezil Hypothyroidism- on Levothyroxine 75 mcg at home; repeat TSH 02/13 at 49.960; Increased levothyroxine to 100 mcg qAM. Repeat labs in 4-6 weeks. DVT prophylaxis: asa 81mg BID GI Pro[facility]axis[facility] but will need [facility], thus patient will be here until next week updated pt's by phone 02/16/24 Admission and Anticipated Discharge Date Admission Date: February 13, 2024 Subjective pt had tiny stool early in the day then had a larger movement later on no new issues pleasant confusion cough improved eating well per nursing flowsheets Review of Systems Review of Systems: CV - mild discomfort at junction of RUQ with the right costal margin; hurts when she coughs; no substernal pain; no left sided pain pulm - no dyspnea Physical Exam Physical Exam: gen - NAD, laying in bed comfortably - looks good; didn't cough at all today during the exam neck - no JVD mouth - MMM heart - RRR s1 s2 no murmur lungs - minimal rales bases (fine, dry), otherwise CTA b/l with good airation; no wheezes; no increased work of breathing abd - soft NT ND BS+ ext - pulses b/l feet 2+ psych - oriented to person only Results & Data Results & Data Vital Signs (Past 12 Hours) Vital Signs Temp Pulse Resp BP Pulse Ox Pulse Ox O2 Del Method 02/17/24 14:31 36.4 C L 74 16 114/63 98 Room Air 02/17/24 11:38 98 02/17/24 11:17 63 18 97 Room Air 02/17/24 08:00 36.3 C L 59 L 18 132/52 L 96 Room Air 02/17/24 07:36 59 L 17 98 Room Air 02/17/24 07:30 Room Air O2 Flow Rate 02/17/24 14:31 02/17/24 11:38 0 02/17/24 11:17 02/17/24 08:00 02/17/24 07:36 02/17/24 07:30 Laboratory Results Laboratory Results - last 24 hr 02/17/24 06:12 WBC 5.77 RBC 3.25 L Hgb 8.9 L Hct 26.7 L MCV 82.2 MCH 27.4 MCHC 33.3 RDW Std Deviation 53.6 H RDW Coeff of [place] 17.9 H Plt Count 228 MPV 9.4 Sodium 131 L Potassium 4.0 Chloride 97 L Carbon Dioxide 23 Anion Gap 11 BUN 14 Creatinine 0.83 Est Cr Clr Drug Dosing 54.2 Est GFR ( Amer) 76.6 Est GFR (Non-Af Amer) 66.1 BUN/Creatinine Ratio 16.9 Glucose 118 H Calcium 8.5 L PG Care Time/CCT Total # of Minutes Spent Total Time Spent with Patient: Total time spent is greater than 50% in coordination of care (as documented) at patient's floor/unit and/or counseling patient: Coding Level of Care Code 74857 SUB INP/OBS CARE MIN Diagnoses Hyponatremia E87.1 COVID-19 U07.1 Closed nondisplaced fracture of lateral malleolus of right fibula with delayed healing, subsequent encounter S82.64XG Encounter type: subsequent encounter Fibula location: lateral malleolus Fracture alignment: nondisplaced Fracture healing: with delayed healing Fracture type: closed Laterality: right Right-sided chest wall pain R07.89 (3) Fibula fracture Encounter type: subsequent encounter Fibula location: lateral malleolus Fracture alignment: nondisplaced Fracture healing: with delayed healing Fracture type: closed Laterality: right Qualified Code(s): S82.64XG - Nondisplaced fracture of lateral malleolus of right fibula, subsequent encounter for closed fracture with delayed healing
[2024-02-17] MEDS: ALBUTEROL HFA 8 GM INHALER INH SCH (20:06)
[2024-02-17] MEDS: DICLOFENAC SOD 1% GEL 100 GM TUBE EXT SCH (22:41)
[2024-02-18] MEDS: POLYETHYLENE (MIRALAX) 17 GM PACK PO SCH (09:24)
[2024-02-18] MEDS: FERROUS SULFATE 325 MG TAB PO SCH (13:17)
[2024-02-18] MEDS: ACETAMINOPHEN 325 MG TAB PO PRN (13:17)
--- NOTE | 2024-02-18 17:52 | Hospitalist Progress Note ---
Date of Service February 18, 2024 Assessment & Plan (1) Hyponatremia: Plan: acute on chronic presenting Na 121 131 yesterday corrected with saline Urine osmolality 187 and urine sodium 41 -- NOT c/w SIADH fluids, diuretics, salt tabs stopped or on hold repeat BMP in am for stability recheck a urine osm and urine Na (2) COVID-19: Plan: Diagnosed with COVID-19 on 02/05/2024 at shelter Although CXR was negative for pneumonia she has had dense rales in the bases on examination Thus, using dexamethasone daily to treat for COVID-induced bronchitis (vs mild pneumonia that simply could not be seen on imaging) Was out of the window period for use of anti-virals thus Remdesivir deferred Cont dex 6mg today, then wean to 4mg/day tomorrow Day #5 of steroids today Cont mucinex, albuterol, tessalon Cont incentive spirometer (3) Fibula fracture: Plan: right tri-malleolar ankle fracture appreciate consultation by Dr Acosta x-rays and CT findings noted poor healing thus, cont non weight-bearing status will need a bone stimulator device per Dr Acosta most recent 25-OH vit D level was quite robust in the 90s (4) Right-sided chest wall pain: Plan: suspect musculoskeletal pain from coughing CTA chest earlier in the stay negative for PE cont voltaren gel 4 grams qid Plan Type 2 DM - controlled Constipation - IMPROVED; cont senna/colace for maintenance; cont miralax for maintenance Anemia - mild; 2nd to Fe deficiency; ferritin <10 in November 2023 Patient practices [employer] [place] thus cannot receive blood products H/H acceptable at this time; repeat CBC am Consider IV venofer if permissible with her episcopal Otherwise resume ferous sulfate daily by mouth Dementia - At baseline per , continue Donepezil Hypothyroidism- on Levothyroxine 75 mcg at home; repeat TSH 02/13 at 49.960; Increased levothyroxine to 100 mcg qAM. Repeat labs in 4-6 weeks. DVT prophylaxis: asa 81mg BID GI Prophylaxis: protonix 40mg BID [facility] but will need auth updated pt's by phone 02/16/24 updated today at bedside Admission and Anticipated Discharge Date Admission Date: February 13, 2024 Subjective no events feels well cough much improved at bedside he agrees she is doing much better he asks about a walking boot for the right foot? Review of Systems Review of Systems: cv - no chest pain pulm - no dyspnea GI - no N/V; moving bowels Physical Exam Physical Exam: gen - NAD, laying in bed comfortably - looks well neck - no JVD mouth - MMM heart - RRR s1 s2 no murmur lungs - mild rales bases (fine, dry), otherwise CTA b/l with good airation; no wheezes; no increased work of breathing abd - soft NT ND BS+ ext - pulses b/l feet 2+; no edema psych - oriented to person only Results & Data Results & Data Vital Signs (Past 12 Hours) Vital Signs Temp Pulse Resp BP Pulse Ox O2 Del Method 02/18/24 15:07 36.8 C 62 16 117/65 97 Room Air 02/18/24 07:45 Room Air 02/18/24 07:38 53 L 16 98 Room Air 02/18/24 07:10 36.9 C 61 16 140/59 L 96 Room Air PG Care Time/CCT Total # of Minutes Spent Total Time Spent with Patient: Total time spent is greater than 50% in coordination of care (as documented) at patient's floor/unit and/or counseling patient: Coding Level of Care Code 60174 SUB INP/OBS CARE 2/35MIN Diagnoses Hyponatremia E87.1 COVID-19 U07.1 Closed nondisplaced fracture of lateral malleolus of right fibula with delayed healing, subsequent encounter S82.64XG Encounter type: subsequent encounter Fibula location: lateral malleolus Fracture alignment: nondisplaced Fracture healing: with delayed healing Fracture type: closed Laterality: right Right-sided chest wall pain R07.89 (3) Fibula fracture Encounter type: subsequent encounter Fibula location: lateral malleolus Fracture alignment: nondisplaced Fracture healing: with delayed healing Fracture type: closed Laterality: right Qualified Code(s): S82.64XG - Nondisplaced fracture of lateral malleolus of right fibula, subsequent encounter for closed fracture with delayed healing
[2024-02-19 08:13] LABS: Hematocrit (blood only) 26.4 % (37.0-47.0); Mean Corpuscular Hemoglobin 27.7 pg (25.0-34.0); Mean Corpuscular Hgb Conc 34.1 g/dL (32.0-36.0); Mean Corpuscular Volume 81.2 fL (80.0-100.0); Mean Platelet Volume 9.7 fL (9.4-12.4); Platelet Count 207 K/uL (130-400); RDW Coefficient of Variation 17.8 % (11.5-14.5); Red Blood Count 3.25 M/uL (4.20-5.40); White Blood Count 6.81 K/ul (4.8-10.8)
[2024-02-19 08:24] LABS: BUN Creatinine Ratio 16.9 (10-20); Calcium 8.4 mg/dl (8.6-10.3); Creatinine Clr Calc Pharmacy 58.4 ml/min; Est GFR (African American) 83.9 ml/min; Est GFR (Non-African American) 72.4 ml/min; Magnesium 1.9 mg/dl (1.7-2.4); Potassium 3.8 mmol/L (3.5-5.1)
[2024-02-19] MEDS: dexAMETHasone 4 MG TAB PO SCH (08:41)
--- NOTE | 2024-02-19 19:41 | Hospitalist Progress Note ---
Date of Service February 19, 2024 Assessment & Plan (1) Hyponatremia: Plan: acute on chronic presenting Na 121 131 today Na level corrected with saline earlier in the hospitalization Urine osmolality and urine Na noted today will place her back on her chronic NaCL tabs decompensated hypothyroidism (TSH was 49 this admission) very well could be playing a role in the low sodium (2) COVID-19: Plan: Diagnosed with COVID-19 on 02/05/2024 at skilled nursing Although CXR was negative for pneumonia she has had dense rales in the bases on examination Thus, using dexamethasone daily to treat for COVID-induced bronchitis (vs mild pneumonia that simply could not be seen on imaging) Was out of the window period for use of anti-virals thus Remdesivir deferred Cont dexamethasone 4mg today, 2mg tomorrow, then stop Day #6 of steroids today Cont mucinex, albuterol 2 puffs BID, tessalon Cont incentive spirometer (3) Fibula fracture: Plan: right tri-malleolar ankle fracture appreciate consultation by Dr Acosta x-rays and CT findings noted poor healing will need a bone stimulator device per Dr Acosta most recent 25-OH vit D level was quite robust in the [place] corresponded with Dr Acosta - ok to proceed with securing her a pneumatic walking boot can weight bear on RLE ONLY WITH WALKING BOOT IN PLACE (4) Right-sided chest wall pain: Plan: suspect musculoskeletal pain from coughing CTA chest earlier in the stay negative for PE cont voltaren gel 4 grams qid Plan Type 2 DM - controlled Constipation - IMPROVED; cont senna/colace for maintenance; cont miralax for maintenance Anemia - mild; 2nd to Fe deficiency; ferritin <10 in November 2023 Patient practices [employer] [place] thus cannot receive blood products H/H acceptable at this time Cont ferous sulfate daily by mouth Dementia - At baseline per , continue Donepezil Hypothyroidism- on Levothyroxine 75 mcg at home; repeat TSH 02/13 at 49.960; Increased levothyroxine to 100 mcg qAM. Repeat labs in 4-6 weeks. DVT prophylaxis: asa 81mg BID GI Prophylaxis: protonix 40mg BID dispo - [facility], auth pending updated pt's by phone 02/16/24 updated at bedside 02/18/24 if auth goes thru over to [facility] tomorrow? Admission and Anticipated Discharge Date Admission Date: February 13, 2024 Subjective no events eating well had large BM per staff got fitted for walking boot for R foot/ankle no new complaints Review of Systems Review of Systems: CV - no chest pain pulm - cough improved; no dyspnea GI - no abd pain or N/V Physical Exam Physical Exam: gen - NAD, laying in bed comfortably - looks great today; pleasant neck - no JVD mouth - MMM heart - RRR s1 s2 no murmur lungs - mild rales bases (fine, dry) - no change; otherwise CTA b/l; no increased work of breathing abd - soft NT ND BS+ ext - pulses b/l feet 2+; no edema psych - oriented to person only Results & Data Results & Data Vital Signs (Past 12 Hours) Vital Signs Temp Pulse Resp BP Pulse Ox O2 Del Method 02/19/24 19:29 36.5 C 61 18 133/68 96 Room Air 02/19/24 17:43 67 16 97 Room Air 02/19/24 15:48 36.5 C 66 16 126/66 94 Room Air 02/19/24 07:42 36.8 C 56 L 16 147/74 H 98 Room Air Laboratory Results Laboratory Results - last 24 hr 02/19/24 02/19/24 02/19/24 07:26 07:36 09:55 WBC 6.81 RBC 3.25 L Hgb 9.0 L Hct 26.4 L MCV 81.2 MCH 27.7 MCHC 34.1 RDW Std Deviation 53.0 H RDW Coeff of [place] 17.8 H Plt Count 207 MPV 9.7 Sodium 131 L Potassium 3.8 Chloride 98 Carbon Dioxide 26 Anion Gap 7 BUN 13 Creatinine 0.77 Est Cr Clr Drug Dosing 58.4 Est GFR ( Amer) 83.9 Est GFR (Non-Af Amer) 72.4 BUN/Creatinine Ratio 16.9 Glucose 122 H POC Glucose 134 H Calcium 8.4 L Magnesium 1.9 Urine Osmolality Ur Random Sodium 84 02/19/24 02/19/24 10:05 11:20 WBC RBC Hgb Hct MCV MCH MCHC RDW Std Deviation RDW Coeff of [place] Plt Count MPV Sodium Potassium Chloride Carbon Dioxide Anion Gap BUN Creatinine Est Cr Clr Drug Dosing Est GFR ( Amer) Est GFR (Non-Af Amer) BUN/Creatinine Ratio Glucose POC Glucose 238 H Calcium Magnesium Urine Osmolality 300 L Ur Random Sodium PG Care Time/CCT Total # of Minutes Spent Total Time Spent with Patient: Total time spent is greater than 50% in coordination of care (as documented) at patient's floor/unit and/or counseling patient: Coding Level of Care Code 53391 SUB INP/OBS CARE 2/35MIN Diagnoses Hyponatremia E87.1 COVID-19 U07.1 Closed nondisplaced fracture of lateral malleolus of right fibula with delayed healing, subsequent encounter S82.64XG Encounter type: subsequent encounter Fibula location: lateral malleolus Fracture alignment: nondisplaced Fracture healing: with delayed healing Fracture type: closed Laterality: right Right-sided chest wall pain R07.89 (3) Fibula fracture Encounter type: subsequent encounter Fibula location: lateral malleolus Fracture alignment: nondisplaced Fracture healing: with delayed healing Fracture type: closed Laterality: right Qualified Code(s): S82.64XG - Nondisplaced fracture of lateral malleolus of right fibula, subsequent encounter for closed fracture with delayed healing
--- NOTE | 2024-02-19 22:35 | Podiatry Progress Note ---
Date of Service February 19, 2024 Assessment & Plan (1) Pain of right lower extremity: (2) Fibula fracture: (3) Ankle pain, right: Plan patient was examined and evaluated. - CT revealed appropriate healing, though slightly delayed. - Can bear weight in the pnuematic boot for short, controlled situations, i.e. transfers, ADLs. 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 - Can likely d/c home from [facility] when PT/OT are in agreement that she and her can care for her. Admission and Anticipated Discharge Date Admission Date: February 13, 2024 Anticipated date of discharge: 02/20/24 Subjective patient seen at bedside. She denies any new concerns at this point but has been hospitalized with weakness and fatigue. Doing well and likely d/c to [facility] tomorrow. Has been fit in pneumatic boot without discomfort. Review of Systems Constitutional: no fever, no chills and no fatigue Eyes: no problem reported Ear, Nose, Mouth, Throat: no problem reported Respiratory: no problem reported Cardiovascular: + edema; no problem reported Gastrointestinal: no nausea, no vomiting and no problem reported Genitourinary: no problem reported Musculoskeletal: no problem reported Integumentary: no skin ulcer, no wounds and no erythema Neurologic: + paresthesia; no generalized weakness, no loss of sensation and no numbness Psychiatric: no problem reported Physical Exam Physical Exam: CT reveals expected healing with no widening of the mortise or medial and lateral gutters. No new fractures or dislocations identified. Pain is improved on palpation and range of motion of the ankle although still present. Diffuse weakness is noted throughout the lower extremity bilaterally. No new contractures appreciated. Constitutional: WD/WN, vitals as above Eyes: PERRL, conjunctivae normal, anicteric sclerae ENMT: external ear and nose normal, oropharynx normal Neck: trachea midline, no thyromegaly normal visual inspection Respiratory: normal respiratory effort; no respiratory distress Cardiovascular: Rate/Rhythm: regular rate and regular rhythm Chest (Breasts): Chest: normal inspection of chest Gastrointestinal (Abdomen): Inspection/Auscultation: abdomen normal to inspection Percussion/Palpation: + abdomen tender and abdomen soft Musculoskeletal: no cyanosis or clubbing, extremities motor strength 5/5 Head/Neck/Chest: normocephalic and head atraumatic Extremities: extremities normal to inspection Ankle: + ecchymosis and + limited ROM of ankle; no de formity Neurologic: awake; no focal motor deficits Psychiatric: A+Ox3, euthymic affect Results & Data Results & Data Vital Signs (Past 12 Hours) Vital Signs Temp Pulse Resp BP Pulse Ox O2 Del Method 02/19/24 20:00 Room Air 02/19/24 19:29 36.5 C 61 18 133/68 96 Room Air 02/19/24 17:43 67 16 97 Room Air 02/19/24 15:48 36.5 C 66 16 126/66 94 Room Air (2) Fibula fracture Encounter type: subsequent encounter Fibula location: lateral malleolus Fracture type: closed Fracture alignment: nondisplaced Laterality: right Fracture healing: with delayed healing Qualified Code(s): S82.64XG - Nondisplaced fracture of lateral malleolus of right fibula, subsequent encounter for closed fracture with delayed healing (3) Ankle pain, right Chronicity: acute Qualified Code(s): M25.571 - Pain in right ankle and joints of right foot
[2024-02-20] MEDS: dexAMETHasone 1 MG TAB PO SCH (08:40)
[2024-02-20 14:37] VITALS: BP 129/65; RESP 16; TEMP 98.2; O2SAT 96
[2024-02-20 15:53] VITALS: PULSE 72
--- NOTE | 2024-02-20 19:15 | Discharge Summary ---
Discharge Summary Date of Service February 20, 2024 Principal Dx & Hospital Course #1 = Principal Diagnosis (1) COVID-19: Diagnosed with COVID-19 on 02/05/2024 at correction Although CXR was negative for pneumonia she has had dense rales in the bases on examination Thus, was treated with oral dexamethasone for COVID-induced bronchitis (vs mild pneumonia that simply could not be seen on imaging) Was out of the window period for use of anti-virals thus Remdesivir deferred Cont mucinex, albuterol 2 puffs BID, tessalon Cont incentive spirometer Symptoms resolving (2) Hyponatremia: acute on chronic presenting Na 121, improved to 133 with IV saline then remained at 131 from 02/14-02/18. 131 is better than her chronic baseline. urine Na has been inappropriately elevated at 42, 41 in the past, and 84 this admission though has lasix on med list so not helpful. she is on citalopram which can trigger SIADH. placed her back on her chronic NaCL tabs decompensated hypothyroidism (TSH was 49 this admission) very well could be playing a role in the low sodium (3) Fibula fracture: right tri-malleolar ankle fracture appreciate consultation by Dr Acosta x-rays and CT findings noted - with expected healing changes poor healing will need a bone stimulator device per Dr Acosta most recent 25-OH vit D level was quite robust in the [place] corresponded with Dr Acosta - ok to proceed with securing her a pneumatic walking boot can weight bear on RLE ONLY WITH WALKING BOOT IN PLACE Per Dr. Acosta's progress note: "- Can bear weight in the pnuematic boot for short, controlled situations, i.e. transfers, ADLs. 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 - Can likely d/c home from [facility] when PT/OT are in agreement that she and her can care for her. " (4) Right-sided chest wall pain: suspect musculoskeletal pain from coughing CTA chest earlier in the stay negative for PE cont voltaren gel 4 grams qid Plan Type 2 DM - controlled Constipation - IMPROVED; cont senna/colace for maintenance; cont miralax for maintenance Anemia - mild; 2nd to Fe deficiency; ferritin <10 in November 2023 Patient practices [employer] thus cannot receive blood products H/H acceptable at this time Cont ferous sulfate daily by mouth Dementia - At baseline per , continue Donepezil Hypothyroidism- on Levothyroxine 75 mcg at home; repeat TSH 02/13 at 49.960; Increased levothyroxine to 100 mcg qAM. Repeat labs in 4-6 weeks. DVT prophylaxis: asa 81mg BID GI Prophylaxis: protonix 40mg BID dispo - [facility], auth pending updated at bedside 02/19 Notes For Next Care Provider recommend repeat BMP in 1 week to check sodium Repeat TSH 4-6 weeks Limited weightbearing RLE with ankle boot only - follow up with podiatry Admission HPI Per Admitting Provider Pt is an 79 y/o F with PMHx of dementia, HTN, hyperlipidemia, cirrhosis, DMT2, and chronic hyponatremia with recent admission 01/17/24-01/23/24 for hyponatremia and generalized weakness. Pt presents for generalized weakness x 2 days. Pt was diagnosed with COVID-19 02/05/24. Hypertensive while in ED, otherwise vital remained stable. WBC 12.86, RBC 3.95, Hgb 10.9, Hct 31.5, Na 121, AG 13, Mg 1.6, pH 7.44. CO2 21, bicarb 16 lactate 5.4-> 5.1. CXR shows no signs of acute conditions, CTA chest reveals cirrhotic liver and ascites, CT of the head shows no acute conditions. EKG is NSR with PACs and rate 87. No antibiotics started; received 30 cc/kg normal saline bolus. Pt is sitting in her bed at the time of visit with her , Nitin, in the room. History is mainly provided by the patient's . He states that 02/05/2024, pt was diagnosed with COVID-19 after being tested due to exposure at [facility]. She started to have improvement in symptoms of cough and sputum production until 02/09 when she began to experience weakness and fatigue. The weakness continued to worsen and the patient's noticed increased confusion into Sunday 02/11. Pt was brought to the ED from her correction, [facility] to the ED for ongoing, worsening symptoms. Pt continues to experience SOB, white sputum production, and sinus pressure. Experiencing ongoing pain to RLE s/p R trimalleolar fx. Pt has some burning at her "bottom" which she uses Vaseline for, but no urinary symptoms. Denies RUIZ, vision changes, sore throat, chest pain, abdominal pain, N/V/D/C, numbness/tingling. No additional pain. Admitted to med/surg. Discharge Exam PHYSICAL EXAMINATION Last 24h vital signs reviewed, see documentation in flowsheet General: comfortable appearing, no distress HEENT: Normocephalic, atraumatic, pupils round and equal, sclerae anicteric, no conjunctival injection, moist mucus membranes Lungs: nonlabored, minimal coughing, coarse crackles in both bases, no wheezing Heart: Regular rate and rhythm, no murmurs. No JVD Abdomen: Soft, nontender, nondistended. Bowel sounds present. Extremities: Warm, dry, well-perfused. No extremity edema. right lower extremity in walking boot Neuro: Alert , face symmetric, moves 4 extremities well Psych: Normal affect and behavior Discharge Plan Discharge Items Patient Disposition: Transfer [facility] Reason For Visit: COVID-19, PNEUMONIA Discharge Diagnosis: COVID-19 Activity: Resume your previous activity Non-emergency contact: Primary Care Provider Call non-emergency contact if: you have any medication questions, your symptoms worsen and you have a fever Follow-up/Referrals: Candis Lee DO [Primary Care Provider] - Diet: Carb Consistent or DM2 Addtl Attending Provider Instructions: PT and OT evaluate and treat BMP in 1 week check sodium Monitor blood glucose Steroids stopped after AM dose 10 Pending Studies at Discharge: No Stand-Alone Forms: [facility] Skilled Items Patient informed of condition?: Yes DNR: Yes Discharge Level of Care: Skilled Communicable Disease: Yes Discharge Prognosis: Improving Lines: None Urinary Catheter: No Medications and DC Order Prescriptions: New polyethylene glycol 3350 [Miralax] 17 gram Powder In Packet 17 g PO DAILY Qty: 0 0RF levothyroxine [Synthroid] 100 mcg Tablet 100 mcg PO DAILYBB Qty: 0 0RF ferrous sulfate 325 mg (65 mg iron) Tablet,Delayed Release (Dr/Ec) 325 mg PO QAM Qty: 0 0RF diclofenac sodium [Voltaren Arthritis Pain] 1 % Gel 4 g EXT QID Qty: 0 0RF Continued magnesium oxide 400 mg (241.3 mg magnesium) tablet 400 mg PO TID Qty: 90 3RF escitalopram oxalate 20 mg tablet 20 mg PO QAM Qty: 90 3RF pantoprazole [Protonix] 40 mg tablet,delayed release (DR/EC) 40 mg PO BID Qty: 60 5RF (DME) blood-glucose meter [OneTouch Ultra2 Meter] [facility] [place] See Rx Instructions .Route Qty: 1 0RF Rx Instructions: testing twice daily DX: E11.9 (DME) OneTouch Verio test strips Strip See Rx Instructions .ROUTE .MEDSUPPLY Qty: 100 11RF Rx Instructions: Testing blood sugar twice daily (DME) lancets 33 gauge misc See Rx Instructions .ROUTE .MEDSUPPLY Qty: 100 3RF Rx Instructions: Testing blood sugar twice daily metformin 500 mg tablet 500 mg PO BID Qty: 60 5RF Rx Instructions: After breakfast and Supper acetaminophen [Tylenol] 325 mg Tablet 650 mg PO BID MDD 3g/24hr acetaminophen [Tylenol] 325 mg Tablet 650 mg PO Q4H MDD 3g/24hr PRN (Reason: Pain/Fever) ipratropium-albuterol 0.5 mg-3 mg(2.5 mg base)/3 mL Solution For Nebulization 3 ml INHALATION QID Rx Instructions: Start Date 02/08/24 - End Date 02/15/24 cetirizine 5 mg Tablet 5 mg PO QAM ondansetron HCl 4 mg Tablet 4 mg PO Q6H PRN (Reason: Nausea And Vomiting) sennosides-docusate sodium [Stimulant Laxative Plus] 8.6-50 mg Tablet 1 tab-cap PO BID dextrose [Glucose Gel] 40 % Gel See Rx Instructions .ROUTE .COMPLEX PRN (Reason: Hypoglycemia) Rx Instructions: Give 1 tube by mouth then recheck BG levels. Only give if pt can swallow. cyanocobalamin (vitamin B-12) [Vitamin B-12] 1,000 mcg Tablet 1,000 mcg PO QPM aspirin 81 mg Tablet,Delayed Release (Dr/Ec) 81 mg PO BID Rx Instructions: Start Date 01/10/24 - End Date 02/21/24 guaifenesin [Tussin] 100 mg/5 mL Liquid 200 mg PO Q4H PRN (Reason: Cough) Rx Instructions: Start Date 02/06/24 - End Date 02/15/24 magnesium hydroxide [Milk of Magnesia] 400 mg/5 mL Suspension 2,400 mg PO DAILY PRN (Reason: Constipation) Rx Instructions: Give if no BM in 3 days; administer on 4th day in the morning benzonatate 100 mg Capsule 100 mg PO TID PRN (Reason: Cough) bisacodyl 10 mg Suppository 10 mg IA DAILY PRN (Reason: Constipation) Rx Instructions: If MOM is ineffective, give on day 5 of no bowel movement Fleet Enema 19-7 gram/118 mL Enema 118 ml IA DAILY PRN (Reason: Constipation) Rx Instructions: Give if no bowel movement on day 6 if Dulcolax not effective clotrimazole 1 % Cream 1 applic TOPICAL BID Rx Instructions: Start Date 02/01/24 - End Date 02/15/24 white petrolatum [Petroleum Jelly] Gel 1 applic TOPICAL DAILY PRN (Reason: irritation) food supplemt, lactose-reduced Liquid 1 ea PO BID Rx Instructions: Prefers Chocolate dextrose 50 % in water (D50W) Syringe See Rx Instructions .ROUTE .COMPLEX Rx Instructions: Dextrose 50% ANISHA 20-50ml slow push IV if glucagon not effective after 15 mins call 911 for ED Evaluation sodium chloride 1,000 mg Tablet,Soluble 1,000 mg PO BID Rx Instructions: At Noon and Bedtime multivitamin with folic acid [High Potency Multivitamin] 400 mcg Tablet 1 tab PO QAM Biotene Dry Mouth Oral Rinse Mouthwash 5 ml PO QID Rx Instructions: Swish and Spit glucagon HCl [Glucagon (HCl) Emergency Kit] 1 mg Recon Soln See Rx Instructions .ROUTE .COMPLEX PRN (Reason: Hypoglycemia) Rx Instructions: Administer 1mg if glucoase remains less than 70 at 15 minutes after glucose gel administration donepezil 5 mg tablet 5 mg PO QAM atorvastatin 10 mg tablet 10 mg PO QAM potassium chloride 10 mEq tablet extended release 10 meq PO QAM amlodipine 5 mg tablet 5 mg PO QAM furosemide [Lasix] 20 mg tablet 20 mg PO QAM ipratropium bromide 21 mcg (0.03 %) spray,non-aerosol 2 spray intranasal BID Rx Instructions: administer into each nostril Proair Digihaler 90 mcg/actuation aero powdr breath act w/sensor 2 inh inhalation Q6H PRN (Reason: cough) Discontinued levothyroxine 75 mcg Tablet 75 mcg PO DAILYBB glycopyrrolate [Robinul] 1 mg tablet 1 mg PO HS prednisone 10 mg Tablet See Rx Instructions .ROUTE .COMPLEX Rx Instructions: Start date 02/11/14: Take 20mg by mouth once daily x 3 days; then 10mg by mouth once daily x 3 days, then stop. Discharge Orders: Discharge Order (Routine); Ordered 02/20/24 Ordered By: Narcisa Mart Admission Data Admit Date/Time: 02/13/24 14:11 Attending Provider: Narcisa Mart Admit Provider: Edvin Moya Primary Care Provider: Candis Lee Other Providers: Edvin Moya; Kelly Armendariz; Juan Jose Acosta Other Interventions: Discharge Summary Assessment (RN) Last Done: 02/20/24 15:50 Hospital Stay Data Consultations 02/13/24 13:58 ED Decision to Admit Stat 02/15/24 12:14 Consult Podiatry Routine Diagnostic Imagining Performed 02/13/24 11:58 CT angio chest PE protocol Stat CT head/brain wo con Stat 02/13/24 18:06 US venous doppler LE RT Stat 02/15/24 14:10 CT ankle RT wo con Routine Pending Results Patient Have Any Pending Studies at Discharge: No Discharge Instructions Given to Patient (Per Discharging Provider) PT and OT evaluate and treat BMP in 1 week check sodium Monitor blood glucose Steroids stopped after AM dose 02/19 Total Time Total Time Spent Total Time Spent (In Minutes): I personally spent: 35 minutes today on clinical care activities including: reviewing chart notes and vital signs discussion with child daycare worker examining and counseling the patient counseling the patient's family writing orders writing prescriptions, discharge instructions documentation Coding Level of Care Code 49139 INP/OBS DISCH >30 MIN Diagnoses COVID-19 U07.1 Hyponatremia E87.1 Closed nondisplaced fracture of lateral malleolus of right fibula with delayed healing, subsequent encounter [id number] Encounter type: subsequent encounter Fibula location: lateral malleolus Fracture type: closed Fracture alignment: nondisplaced Laterality: right Fracture healing: with delayed healing Right-sided chest wall pain R07.89
== END 2024-02-20 16:37 | DRG 178 ==
LOC: ED 10:54 → SUATTDRO 14:11 → INTOOBSV 14:11 → 3N 14:11